=== PATIENT | female | born 1980 | race Caucasian/White ===

== ENCOUNTER 2016-07-30 18:47 | Emergency (ER) | payer OTHER ==
[~2016-07-30 18:47] MED LIST: /AUGM875TA OR; /DULO30CA OR; /ESOM40CA OR; ABIL10TA OR; ABIL5TAB OR; ACET500C OR; ALBU17IN INH; ALBU2TAB INH; ALBU83IN INH; ATOR1TAB18 PO; ATROVENT0.02% INH; CALCCHW12 OR; DOCU10CA PO; EFFE150C OR; FISH300C2 OR; FLAG500T PO; FLEXERIL OR; GABA300C3 PO; GEMF600T PO; GLUC500T OR; GLUC850T OR; IBUP800T23 PO; LEVO175T2 PO; LEVO200T OR; LIPI20TA PO; MELO7.5S PO; METF1000 PO; METH-107 PO; METO10TA2 OR; METO10TA2 PO; NASONEX; NICO21DI4 TD; OMEP20CA3 PO; ONGL10TA3 PO; ONGL1TAB9 PO; PRED20TA PO; PROT1TAB2 PO; SIMV20TA2 OR; SIMV20TA2 PO; TRAM50TA2 PO; TRAZ150T OR; TRAZ50TA4 PO; TRIC145T19 OR; VENL50TA2 PO; VITA-113 SL; VITA100T OR; VYTO10TA5 OR; ZETI10TA OR; ZOCO40TA OR; ZOLO50TA PO; omacor OR
[2016-07-30] MEDS ORDERED: methylPREDNISolone INJ 125 MG/2 ML VIAL (J2930) As Ordered ONE (19:49)
[2016-07-30] MEDS ORDERED: IPRATROPIUM 0.5MG/ALBUTEROL 2.5MG INH SOL UD 3ML (DUONEB)(J7620) As Ordered ONE (19:57)
[2016-07-30 20:22] LABS: BASO % 0.7 % (0.0-1.0); EOS # 0.2 K/mm3 (0.0-0.50); EOS % 3.2 % (0.0-3.0); LARGE UNSTAINED CELL # 0.1 K/mm3 (0.0-0.4); LARGE UNSTAINED CELL % 1.1 % (0.0-4.0); LYMPH # 1.6 K/mm3 (1.5-4.5); LYMPH % 22.3 % (24.0-44.0); MEAN CORPUSCULAR HEMOGLOBIN 31.6 pg (27.0-33.0); MEAN CORPUSCULAR HGB CONC 33.9 g/dl (32.0-36.5); MEAN CORPUSCULAR VOLUME 93.2 fl (80.0-96.0); MONO # 0.5 K/mm3 (0.0-0.8); MONO % 6.9 % (0.0-5.0); NEUTROPHILS # 4.8 K/mm3 (1.8-7.7); NEUTROPHILS % 65.8 % (36.0-66.0); PLATELET COUNT, AUTOMATED 243 k/mm3 (150-450); RED CELL DISTRIBUTION WIDTH 12.8 % (11.5-14.5); WHITE BLOOD COUNT 7.3 K/mm3 (4.0-10.0)
[2016-07-30 20:33] LABS: INR 0.98
[2016-07-30 20:35] LABS: ANION GAP 11 MEQ/L (8-16); BLOOD UREA NITROGEN 7 MG/DL (7-18); CARBON DIOXIDE LEVEL 27 MEQ/L (21-32); CHLORIDE LEVEL 100 MEQ/L (98-107); CREATININE FOR GFR 0.72 MG/DL (0.55-1.02); GLOMERULAR FILTRATION RATE > 60.0 (>60); GLUCOSE, FASTING 150 MG/DL (70-105); POTASSIUM SERUM 4.2 MEQ/L (3.5-5.1); SODIUM LEVEL 138 MEQ/L (136-145)
[2016-07-30] MEDS ORDERED: AZITHROMYCIN 250 MG TAB As Ordered ONE (22:01)
[2016-07-30] MEDS ORDERED: BENZONATATE 100 MG CAP As Ordered ONE (22:01)
--- NOTE | 2016-07-30 22:13 | EDDOCDS ---
Nurse's Notes [facility] Name: Kathy Bradshaw Age: 35 yrs Sex: Female : 1980 Arrival Date: 07/30/2016 Time: 18:47 Bed 8 Private MD: Diagnosis: Acute bronchitis Presentation: 07/30 18:57 Presenting complaint: EMS states: cold for about a week. Patient smokes through stoma. nn1 Patient has had bleeding through stoma when coughing. Patient had stroke back in March, right side weakness. 18:57 Acuity: DESTIN Level 3 nn1 18:57 Method Of Arrival: Ambulance nn1 19:03 Suicide/Homicide risk assessment- the patient denies having any suicidal and/or nn1 homicidal ideations and does not present with any other emotional, behavioral or mental health complaints. Status: Patient is not a service counselor or dependent. Transition of care: patient was not received from another setting of care. 22:11 Adult Sepsis Screening: The patient does not have new or worsening altered mentation. nn1 Patient's respiratory rate is less than 22. Systolic blood pressure is greater than 100. Patient has a qSOFA score of 0- Negative Sepsis Screen. Triage Assessment: 19:12 General: Appears in no apparent distress, Behavior is appropriate for age, cooperative. nn1 Pain: Location: jaw, throat Pain currently is 5 out of 10 on a pain scale. Quality of pain is described as burning, "feels like a sunburn". HIV screening NA for this visit Offered previously. The patient is triaged at the bedside. See Assessment in Nurses Notes section of ED record. Neurological: Level of Consciousness is awake, alert, obeys commands, Oriented to person, place, time. Respiratory: Airway via trache Respiratory effort is even, unlabored, Respiratory pattern is regular, symmetrical, Reports cough that is productive, mixed with blood clots from stoma on Saturday. On Saturday patient reports stoma was pouring blood. Respiratory: Breath sounds with wheezes expiratory in left posterior upper lobe and right posterior upper lobe. Derm: Skin is pink, warm & dry. Stoma does not appear to be infected at this time. Swollen area noted. CARE NURSE RN: 18:57 LMP N/A - Hysterectomy nn1 Historical: - Allergies: Avelox (Hives); SULFA (SULFONAMIDES) (Hives); - Home Meds: 1. albuterol sulfate 0.63 mg/3 mL Inhl nebu as needed. 2. aspirin 81 mg Oral TbEC 1 tab once daily 3. Zoloft 100 mg oral tab 2 tabs once daily 4. Flonase 50 mcg/actuation Nasal spsn 1 spray as needed 5. levothyroxine 175 mcg Oral tab 1 tab once daily 6. Lipitor 80 mg Oral tab 1 tab once daily 7. metformin 1,000 mg Oral tab 1 tab 2 times per day 8. omeprazole 40 mg Oral cpDR 1 cap once daily 9. Onglyza 5 mg oral tab 1 tab once daily 10. Plavix 75 mg Oral tab 1 tab once daily 11. Prednisone Oral 2 times per day 12. Reglan Oral as needed 13. Robaxin 500 mg Oral tab 2 tabs as needed 14. Tricor 145 mg Oral tab 1 tab once daily - PMHx: Diabetes - NIDDM: controlled; GERD; Hypercholesterolemia; Hypothyroidism; Stroke; cancer-larynx; - PSHx: Tubal ligation; Hysterectomy; total larnyectomy; Gall Bladder Removal; - Social history: Smoking status: Patient uses tobacco products, light tobacco smoker. No barriers to communication noted. - Family history: No immediate family members are acutely ill. - : The pt / caregiver states he / she is on anticoagulants: Plavix. Home medication list is obtained from the patient. - Exposure Risk Screening:: None identified. Screenin:10 Screening information is obtained from the patient. Fall risk: No risks identified. nn1 22:10 Assistance ADL's: requires no assistance with activities of daily living. Abuse/DV nn1 Screen: The patient / caregiver reports he/she is: not in a situation that causes fear, pain or injury. Nutritional screening: No deficits noted. Advance Directives: Currently, there is no health care proxy. home support is adequate. Assessment: 19:16 General: See triage assessment . nn1 19:35 General: Patient reporting rectal bleeding at this time as well, states it has been nn1 going on "for a while". . Neurological: Level of Consciousness is awake, alert. Derm: Skin is pink, warm & dry. 20:21 General: Patient has bright red mucus coming from stoma. Provider notified. Patient nn1 received breathing treatments and medication per order. . Respiratory: Airway is patent Respiratory effort is even, unlabored, Respiratory pattern is regular, symmetrical, Sputum is bloody. 22:09 General: Appears in no apparent distress, Behavior is appropriate for age, cooperative. nn1 Pain: Location: throat Pain currently is 5 out of 10 on a pain scale. Neurological: Level of Consciousness is awake, alert. Respiratory: Airway is patent via trache Respiratory effort is even, unlabored, Respiratory pattern is regular, symmetrical, Patient coughing up bloody mucus at this time through stoma. MD aware. Derm: Skin is pink, warm & dry. Vital Signs: 19:06 BP 142 / 93; Pulse 73; Resp 20; Temp 99.1(O); Pulse Ox 91% on R/A; Weight 127.01 kg jm (R); Height 5 ft. 11 in. (180.34 cm) (R); Pain 5/10; 22:08 BP 134 / 75; Pulse 60; Resp 18; Temp 98.3(O); Pulse Ox 91% ; Pain 5/10; nn1 19:06 Body Mass Index 39.05 (127.01 kg, 180.34 cm) [facility] Vitals: 18:57 Log In Time N/A - ambulance arrival. nn1 ED Course: 18:48 Patient visited by Shima Zhang, Bead Preparer. deg 18:48 Patient moved to Waiting deg 18:55 Patient moved to 8 deg 19:00 Triage Initiated nn1 19:07 Pt greeted and oriented to ED. Patient advised of names of staff involved in care, [facility] location of call bagley, wait times and NPO status. Patient has correct armband on for positive identification. Placed in gown. Bed in low position. Call light in reach. Side rails up X2. Pulse ox on. NIBP on. 19:08 Patient visited by Martin Woods PCA. jmv 19:19 Russell Baird DO is Attending Physician. mm11 19:19 Patient visited by Russell Baird DO. mm11 19:37 Patient visited by Russell Baird DO. mm11 20:21 Patient visited by Franky Luna RN. nn1 20:26 [facility] was [place] into [employer] and attached to record. mpb 21:24 Patient visited by Sharmila Rankin. cmb 21:53 [facility] is Referral Physician. mm11 22:10 Inserted saline lock: 20 gauge in left antecubital area. nn1 22:11 The patient / caregiver is instructed regarding the plan of care and ED course. nn1 22:11 No procedures done that require assistance. nn1 Administered Medications: 20:00 Drug: Albuterol-Ipratropium 3 ml [ipratropium-albuterol 0.5 mg-3 mg(2.5 mg base)/3 mL jh6 nebulization soln (3 mL)] Route: Inhalation; 20:10 Drug: Solu-MEDROL 125 mg [Solu-Medrol 500 mg intravenous solution (125 mg)] Route: IVP; nn1 Site: left antecubital; 22:08 Drug: azithromycin 500 mg [azithromycin 250 mg tablet (2 tabs)] Route: PO; nn1 22:08 Drug: Tessalon 200 mg Route: PO; nn1 RT: 20:00 Initial Med Neb Given as ordered Patient was instructed and evaluated on procedure jh6 Patient tolerated procedure well without adverse effect. Respiratory: Airway is patent Respiratory effort is even, unlabored, Respiratory pattern is regular symmetrical, Breath sounds are coarse in left posterior upper lobe, right posterior upper lobe and right posterior middle lobe Breath sounds are diminished in left posterior upper lobe, right posterior upper lobe, left posterior lower lobe, right posterior middle lobe and right posterior lower lobe. Order Results: Lab Order: CBC with Diff; SPEC'M 07/30/16 20:02 Test: WHITE BLOOD COUNT; Value: 7.3; Range: 4.0-10.0; Units: K/mm3; Status: F Test: RED BLOOD COUNT; Value: 5.34; Range: 4.00-5.40; Units: M/mm3; Status: F Test: HEMOGLOBIN; Value: 16.9; Range: 12.0-16.0; Abnormal: Above high normal; Units: g/dl; Status: F Test: HEMATOCRIT; Value: 49.8; Range: 36.0-47.0; Abnormal: Above high normal; Units: %; Status: F Test: MEAN CORPUSCULAR VOLUME; Value: 93.2; Range: 80.0-96.0; Units: fl; Status: F Test: MEAN CORPUSCULAR HEMOGLOBIN; Value: 31.6; Range: 27.0-33.0; Units: pg; Status: F Test: MEAN CORPUSCULAR HGB CONC; Value: 33.9; Range: 32.0-36.5; Units: g/dl; Status: F Test: RED CELL DISTRIBUTION WIDTH; Value: 12.8; Range: 11.5-14.5; Units: %; Status: F Test: PLATELET COUNT, AUTOMATED; Value: 243; Range: 150-450; Units: k/mm3; Status: F Test: NEUTROPHILS %; Value: 65.8; Range: 36.0-66.0; Units: %; Status: F Test: LYMPH %; Value: 22.3; Range: 24.0-44.0; Abnormal: Below low normal; Units: %; Status: F Test: MONO %; Value: 6.9; Range: 0.0-5.0; Abnormal: Above high normal; Units: %; Status: F Test: EOS %; Value: 3.2; Range: 0.0-3.0; Abnormal: Above high normal; Units: %; Status: F Test: BASO %; Value: 0.7; Range: 0.0-1.0; Units: %; Status: F Test: LARGE UNSTAINED CELL %; Value: 1.1; Range: 0.0-4.0; Units: %; Status: F Test: NEUTROPHILS #; Value: 4.8; Range: 1.8-7.7; Units: K/mm3; Status: F Test: LYMPH #; Value: 1.6; Range: 1.5-4.5; Units: K/mm3; Status: F Test: MONO #; Value: 0.5; Range: 0.0-0.8; Units: K/mm3; Status: F Test: EOS #; Value: 0.2; Range: 0.0-0.50; Units: K/mm3; Status: F Test: BASO #; Value: 0.0; Range: 0.0-0.2; Units: K/mm3; Status: F Test: LARGE UNSTAINED CELL #; Value: 0.1; Range: 0.0-0.4; Units: K/mm3; Status: F Lab Order: [facility] [place]; SPEC'M 07/30/16 20:02 Test: GLUCOSE, FASTING; Value: 150; Range: 70-105; Abnormal: Above high normal; Units: MG/DL; Status: F Test: BLOOD UREA NITROGEN; Value: 7; Range: 7-18; Units: MG/DL; Status: F Test: CREATININE FOR GFR; Value: 0.72; Range: 0.55-1.02; Units: MG/DL; Status: F Test: GLOMERULAR FILTRATION RATE; Value: > 60.0; Range: >60; Status: F Test: SODIUM LEVEL; Value: 138; Range: 136-145; Units: MEQ/L; Status: F Test: POTASSIUM SERUM; Value: 4.2; Range: 3.5-5.1; Units: MEQ/L; Status: F Test: CHLORIDE LEVEL; Value: 100; Range: 98-107; Units: MEQ/L; Status: F Test: CARBON DIOXIDE LEVEL; Value: 27; Range: 21-32; Units: MEQ/L; Status: F Test: ANION GAP; Value: 11; Range: 8-16; Units: MEQ/L; Status: F Test: CALCIUM LEVEL; Value: 9.0; Range: 8.5-10.1; Units: MG/DL; Status: F Test Note: ; Units are mL/min/1.73 m2 Chronic Kidney Disease Staging per NKF: Stage I & II GFR >=60 Normal to Mildly Decreased Stage III GFR 30-59 Moderately Decreased Stage IV GFR 15-29 Severely Decreased Stage V GFR <15 Very Little GFR Left ESRD GFR <15 on PLATE FITTER Lab Order: Pt & Aptt; SPEC'M 07/30/16 20:02 Test: PROTHROMBIN TIME; Value: 13.1; Range: 12.3-14.5; Units: SECONDS; Status: F Test: INR; Value: 0.98; Status: F Test: PARTIAL THROMBOPLASTIN TIME; Value: 24.9; Range: 26.6-37.1; Abnormal: Below low normal; Units: SECONDS; Status: F Test Note: ; THERAPUTIC HUMAN INR VALUES INDICATIONS NORMAL RANGES PROPHYLAXIS/TREATMENT OF: VENOUS THROMBOSIS 2.0-3.0 PULMONARY EMBOLISM 2.0-3.0 PREVENTION OF SYSTEMIC EMBOLISM FROM: TISSUE HEART VALVES 2.0-3.0 ACUTE MYOCARDIAL INFARCTION 2.0-3.0 VALVULAR HEART DISEASE 2.0-3.0 ATRIAL FIBRILLATION 2.0-3.0 MECHANICAL VALVES(HIGH RISK) 2.5-3.5 RECURRENT MYOCARDIAL INFARCTION 2.5-3.5 Outcome: 21:53 Discharge ordered by Provider. mm11 22:11 Discharge Assessment: Patient awake, alert and oriented x 3. No cognitive and/or nn1 functional deficits noted. Patient verbalized understanding of disposition instructions. patient administered narcotics - no. The following High Risk Discharge criteria are identified: None. Discharged to home ambulatory. Condition: good Condition: stable. No special radiology studies were completed. Property :Personal belongings accompany Pt. 22:12 Patient left the ED. nn1 Signatures: Shima Zhang, Bead Preparer Unit deg Russell Baird, DO mm11 Gume Merchant jh6 Sharmila Rankin Nikkole,DOROTHY RN nn1 Melquiades Pearl, Reg Reg mpb Martin Woods, AREN ART GILDER jmv MTDD
--- NOTE | 2016-07-30 22:13 | EDDOCDS ---
Physician Documentation [facility] Name: Kathy Bradshaw Age: 35 yrs Sex: Female : 1980 Arrival Date: 07/30/2016 Time: 18:47 Bed 8 Private MD: Disposition: 07/30/16 21:53 Discharged to Home/Self Care. Impression: Acute bronchitis. - Condition is Stable. - Discharge Instructions: Acute Bronchitis. - Prescriptions for Prednisone 20 mg Oral Tablet - take 2 tablet by ORAL route once daily for 5 days; 10 tablet. Zithromax 250 mg Oral Tablet - take 1 tablet by ORAL route once daily start tomorrow; 4 tablet. Mucinex 600 mg - take 1 tablet by ORAL route 2 times per day; 30 tablet. benzonatate 200 mg Oral Capsule - take 1 capsule by ORAL route 3 times per day As needed; 30 capsule. - Medication Reconciliation, Local Pharmacy Hours form. - [facility]; When: 4 - 5 days; Reason: Continuance of care. - Problem is an acute exacerbation. - Symptoms have improved. Historical: - Allergies: Avelox (Hives); SULFA (SULFONAMIDES) (Hives); - Home Meds: 1. albuterol sulfate 0.63 mg/3 mL Inhl nebu as needed. 2. aspirin 81 mg Oral TbEC 1 tab once daily 3. Zoloft 100 mg oral tab 2 tabs once daily 4. Flonase 50 mcg/actuation Nasal spsn 1 spray as needed 5. levothyroxine 175 mcg Oral tab 1 tab once daily 6. Lipitor 80 mg Oral tab 1 tab once daily 7. metformin 1,000 mg Oral tab 1 tab 2 times per day 8. omeprazole 40 mg Oral cpDR 1 cap once daily 9. Onglyza 5 mg oral tab 1 tab once daily 10. Plavix 75 mg Oral tab 1 tab once daily 11. Prednisone Oral 2 times per day 12. Reglan Oral as needed 13. Robaxin 500 mg Oral tab 2 tabs as needed 14. Tricor 145 mg Oral tab 1 tab once daily - PMHx: Diabetes - NIDDM: controlled; GERD; Hypercholesterolemia; Hypothyroidism; Stroke; cancer-larynx; - PSHx: Tubal ligation; Hysterectomy; total larnyectomy; Gall Bladder Removal; - Social history: Smoking status: Patient uses tobacco products, light tobacco smoker. No barriers to communication noted. - Family history: No immediate family members are acutely ill. - : The pt / caregiver states he / she is on anticoagulants: Plavix. Home medication list is obtained from the patient. - Exposure Risk Screening:: None identified. HOSE MENDER: 07/30 18:57 LMP N/A - Hysterectomy nn1 Vital Signs: 19:06 BP 142 / 93; Pulse 73; Resp 20; Temp 99.1(O); Pulse Ox 91% on R/A; Weight 127.01 kg / jmv 280.01 lbs (R); Height 5 ft. 11 in. (180.34 cm) (R); Pain 5/10; 22:08 BP 134 / 75; Pulse 60; Resp 18; Temp 98.3(O); Pulse Ox 91% ; Pain 5/10; nn1 19:06 Body Mass Index 39.05 (127.01 kg, 180.34 cm) jmv MDM: 19:39 IV Saline Lock ordered. mm11 19:39 Solu-MEDROL 125 mg IVP once ordered. mm11 19:39 Albuterol-Ipratropium 3 ml Inhalation once ordered. mm11 19:39 Call Respiratory ordered. mm11 19:40 CBC with Diff Ordered. EDMS 19:40 BMP Ordered. EDMS 19:40 Pt & Aptt Ordered. EDMS 19:40 Chest, 2 View (pa\E\lat) Ordered. EDMS 19:43 -Blood Culture (Adults Only), peripheral from different site, or from device/port/PICC mm11 etc. if present ordered. 19:44 -Blood Culture Ordered. EDMS 20:12 Call Respiratory complete. tmm1 20:14 -Blood Culture (Adults Only), peripheral from different site, or from device/port/PICC tmm1 etc. if present complete. 20:15 BLOOD CULTURES Ordered. EDMS 20:25 Financial registration complete. mpb 20:26 [facility] Payment Agreement was scanned into [employer] and attached to record. mpb 21:35 CBC with Diff Reviewed. mm11 21:35 BMP Reviewed. mm11 21:35 Pt & Aptt Reviewed. mm11 21:55 azithromycin 500 mg PO once ordered. mm11 21:55 Tessalon 200 mg PO once ordered. mm11 Administered Medications: 20:00 Drug: Albuterol-Ipratropium 3 ml [ipratropium-albuterol 0.5 mg-3 mg(2.5 mg base)/3 mL jh6 nebulization soln (3 mL)] Route: Inhalation; 20:10 Drug: Solu-MEDROL 125 mg [Solu-Medrol 500 mg intravenous solution (125 mg)] Route: IVP; nn1 Site: left antecubital; 22:08 Drug: azithromycin 500 mg [azithromycin 250 mg tablet (2 tabs)] Route: PO; nn1 22:08 Drug: Tessalon 200 mg Route: PO; nn1 Signatures: Dispatcher [employer] EDMS Russell Baird DO DO mm11 Natividad Grajeda, POTTERY DECORATOR POTTERY DECORATOR tmm1 Franky Luna,DOROTHY RN nn1 Melquiades Pearl, Faustino Reg mpb Gume Merchant 6 The chart was reviewed and I authenticate all verbal orders and agree with the evaluation and treatment provided.Attachments: 20:26 [facility] [place] Agreement mpb MTDD
--- NOTE | 2016-07-31 07:55 | REP ---
Clinical: Shortness of breath . Comparison: 06/15/2016 . Technique: PA and lateral. Findings: The mediastinum and cardiac silhouette are normal. The lung mercedes are clear and without acute consolidation, effusion, or pneumothorax. The skeletal structures are intact and normal. Impression: 1. No acute cardiopulmonary process. Signed by Micha Maldonado MD 07/31/2016 07:46 A
--- NOTE | 2016-08-01 23:13 | EDDOCDS ---
Physician Documentation [facility] Name: Kathy Bradshaw Age: 35 yrs Sex: Female : 1980 Arrival Date: 07/30/2016 Time: 18:47 Bed 8 Private MD: Disposition: 07/30/16 21:53 Discharged to Home/Self Care. Impression: Acute bronchitis. - Condition is Stable. - Discharge Instructions: Acute Bronchitis. - Prescriptions for Prednisone 20 mg Oral Tablet - take 2 tablet by ORAL route once daily for 5 days; 10 tablet. Zithromax 250 mg Oral Tablet - take 1 tablet by ORAL route once daily start tomorrow; 4 tablet. Mucinex 600 mg - take 1 tablet by ORAL route 2 times per day; 30 tablet. benzonatate 200 mg Oral Capsule - take 1 capsule by ORAL route 3 times per day As needed; 30 capsule. - Medication Reconciliation, Local Pharmacy Hours form. - [facility]; When: 4 - 5 days; Reason: Continuance of care. - Problem is an acute exacerbation. - Symptoms have improved. Historical: - Allergies: Avelox (Hives); SULFA (SULFONAMIDES) (Hives); - Home Meds: 1. albuterol sulfate 0.63 mg/3 mL Inhl nebu as needed. 2. aspirin 81 mg Oral TbEC 1 tab once daily 3. Zoloft 100 mg oral tab 2 tabs once daily 4. Flonase 50 mcg/actuation Nasal spsn 1 spray as needed 5. levothyroxine 175 mcg Oral tab 1 tab once daily 6. Lipitor 80 mg Oral tab 1 tab once daily 7. metformin 1,000 mg Oral tab 1 tab 2 times per day 8. omeprazole 40 mg Oral cpDR 1 cap once daily 9. Onglyza 5 mg oral tab 1 tab once daily 10. Plavix 75 mg Oral tab 1 tab once daily 11. Prednisone Oral 2 times per day 12. Reglan Oral as needed 13. Robaxin 500 mg Oral tab 2 tabs as needed 14. Tricor 145 mg Oral tab 1 tab once daily - PMHx: Diabetes - NIDDM: controlled; GERD; Hypercholesterolemia; Hypothyroidism; Stroke; cancer-larynx; - PSHx: Tubal ligation; Hysterectomy; total larnyectomy; Gall Bladder Removal; - Social history: Smoking status: Patient uses tobacco products, light tobacco smoker. No barriers to communication noted. - Family history: No immediate family members are acutely ill. - : The pt / caregiver states he / she is on anticoagulants: Plavix. Home medication list is obtained from the patient. - Exposure Risk Screening:: None identified. COCOA BUTTER FILTER OPERATOR: 07/30 18:57 LMP N/A - Hysterectomy nn1 Vital Signs: 19:06 BP 142 / 93; Pulse 73; Resp 20; Temp 99.1(O); Pulse Ox 91% on R/A; Weight 127.01 kg / jmv 280.01 lbs (R); Height 5 ft. 11 in. (180.34 cm) (R); Pain 5/10; 22:08 BP 134 / 75; Pulse 60; Resp 18; Temp 98.3(O); Pulse Ox 91% ; Pain 5/10; nn1 19:06 Body Mass Index 39.05 (127.01 kg, 180.34 cm) jmv MDM: 19:39 IV Saline Lock ordered. mm11 19:39 Solu-MEDROL 125 mg IVP once ordered. mm11 19:39 Albuterol-Ipratropium 3 ml Inhalation once ordered. mm11 19:39 Call Respiratory ordered. mm11 19:40 CBC with Diff Ordered. EDMS 19:40 BMP Ordered. EDMS 19:40 Pt & Aptt Ordered. EDMS 19:40 Chest, 2 View (pa\E\lat) Ordered. EDMS 19:43 -Blood Culture (Adults Only), peripheral from different site, or from device/port/PICC mm11 etc. if present ordered. 19:44 -Blood Culture Ordered. EDMS 20:12 Call Respiratory complete. tmm1 20:14 -Blood Culture (Adults Only), peripheral from different site, or from device/port/PICC tmm1 etc. if present complete. 20:15 BLOOD CULTURES Ordered. EDMS 20:25 Financial registration complete. mpb 20:26 [facility] [place] Agreement was scanned into [employer] and attached to record. mpb 21:35 CBC with Diff Reviewed. mm11 21:35 BMP Reviewed. mm11 21:35 Pt & Aptt Reviewed. mm11 21:55 azithromycin 500 mg PO once ordered. mm11 21:55 Tessalon 200 mg PO once ordered. mm11 07/31 03:47 T-Sheet-- Draft Copy was scanned into [employer] and attached to record. hs2 Administered Medications: 07/30 20:00 Drug: Albuterol-Ipratropium 3 ml [ipratropium-albuterol 0.5 mg-3 mg(2.5 mg base)/3 mL jh6 nebulization soln (3 mL)] Route: Inhalation; 20:10 Drug: Solu-MEDROL 125 mg [Solu-Medrol 500 mg intravenous solution (125 mg)] Route: IVP; nn1 Site: left antecubital; 22:08 Drug: azithromycin 500 mg [azithromycin 250 mg tablet (2 tabs)] Route: PO; nn1 22:08 Drug: Tessalon 200 mg Route: PO; nn1 Signatures: Dispatcher [employer] EDRussell Portillo, DO mm11 Natividad Grajeda, COMPUTED TOMOGRAPHY SCANNER OPERATOR COMPUTED TOMOGRAPHY SCANNER OPERATOR tmm1 Franky Luna,RN RN nn1 Melquiades Pearl, Reg Reg mpb Ronel De La Paz, Reg Reg hs2 Gume Merchant 6 The chart was reviewed and I authenticate all verbal orders and agree with the evaluation and treatment provided.Attachments: 20:26 [facility] Payment Agreement mpb 07/31 03:47 T-Sheet-- Draft Copy hs2 Chart Complete MTDD
--- NOTE | 2016-08-01 23:13 | EDDOCDS ---
Nurse's Notes [facility] Name: Kathy Bradshaw Age: 35 yrs Sex: Female : 1980 Arrival Date: 07/30/2016 Time: 18:47 Bed 8 Private MD: Diagnosis: Acute bronchitis Presentation: 07/30 18:57 Presenting complaint: EMS states: cold for about a week. Patient smokes through stoma. nn1 Patient has had bleeding through stoma when coughing. Patient had stroke back in March, right side weakness. 18:57 Acuity: DESTIN Level 3 nn1 18:57 Method Of Arrival: Ambulance nn1 19:03 Suicide/Homicide risk assessment- the patient denies having any suicidal and/or nn1 homicidal ideations and does not present with any other emotional, behavioral or mental health complaints. Status: Patient is not a customer service correspondence clerk or dependent. Transition of care: patient was not received from another setting of care. 22:11 Adult Sepsis Screening: The patient does not have new or worsening altered mentation. nn1 Patient's respiratory rate is less than 22. Systolic blood pressure is greater than 100. Patient has a qSOFA score of 0- Negative Sepsis Screen. Triage Assessment: 19:12 General: Appears in no apparent distress, Behavior is appropriate for age, cooperative. nn1 Pain: Location: jaw, throat Pain currently is 5 out of 10 on a pain scale. Quality of pain is described as burning, "feels like a sunburn". HIV screening NA for this visit Offered previously. The patient is triaged at the bedside. See Assessment in Nurses Notes section of ED record. Neurological: Level of Consciousness is awake, alert, obeys commands, Oriented to person, place, time. Respiratory: Airway via trache Respiratory effort is even, unlabored, Respiratory pattern is regular, symmetrical, Reports cough that is productive, mixed with blood clots from stoma on Saturday. On Saturday patient reports stoma was pouring blood. Respiratory: Breath sounds with wheezes expiratory in left posterior upper lobe and right posterior upper lobe. Derm: Skin is pink, warm & dry. Stoma does not appear to be infected at this time. Swollen area noted. 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 albuterol sulfate 0.63 mg/3 mL Inhl nebu as needed. 2. aspirin 81 mg Oral TbEC 1 tab once daily 3. Zoloft 100 mg oral tab 2 tabs once daily 4. Flonase 50 mcg/actuation Nasal spsn 1 spray as needed 5. levothyroxine 175 mcg Oral tab 1 tab once daily 6. Lipitor 80 mg Oral tab 1 tab once daily 7. metformin 1,000 mg Oral tab 1 tab 2 times per day 8. omeprazole 40 mg Oral cpDR 1 cap once daily 9. Onglyza 5 mg oral tab 1 tab once daily 10. Plavix 75 mg Oral tab 1 tab once daily 11. Prednisone Oral 2 times per day 12. Reglan Oral as needed 13. Robaxin 500 mg Oral tab 2 tabs as needed 14. Tricor 145 mg Oral tab 1 tab once daily - PMHx: Diabetes - NIDDM: controlled; GERD; Hypercholesterolemia; Hypothyroidism; Stroke; cancer-larynx; - PSHx: Tubal ligation; Hysterectomy; total larnyectomy; Gall Bladder Removal; - Social history: Smoking status: Patient uses tobacco products, light tobacco smoker. No barriers to communication noted. - Family history: No immediate family members are acutely ill. - : The pt / caregiver states he / she is on anticoagulants: Plavix. Home medication list is obtained from the patient. - Exposure Risk Screening:: None identified. Screenin:10 Screening information is obtained from the patient. Fall risk: No risks identified. nn1 22:10 Assistance ADL's: requires no assistance with activities of daily living. Abuse/DV nn1 Screen: The patient / caregiver reports he/she is: not in a situation that causes fear, pain or injury. Nutritional screening: No deficits noted. Advance Directives: Currently, there is no health care proxy. home support is adequate. Assessment: 19:16 General: See triage assessment . nn1 19:35 General: Patient reporting rectal bleeding at this time as well, states it has been nn1 going on "for a while". . Neurological: Level of Consciousness is awake, alert. Derm: Skin is pink, warm & dry. 20:21 General: Patient has bright red mucus coming from stoma. Provider notified. Patient nn1 received breathing treatments and medication per order. . Respiratory: Airway is patent Respiratory effort is even, unlabored, Respiratory pattern is regular, symmetrical, Sputum is bloody. 22:09 General: Appears in no apparent distress, Behavior is appropriate for age, cooperative. nn1 Pain: Location: throat Pain currently is 5 out of 10 on a pain scale. Neurological: Level of Consciousness is awake, alert. Respiratory: Airway is patent via trache Respiratory effort is even, unlabored, Respiratory pattern is regular, symmetrical, Patient coughing up bloody mucus at this time through stoma. MD aware. Derm: Skin is pink, warm & dry. Vital Signs: 19:06 BP 142 / 93; Pulse 73; Resp 20; Temp 99.1(O); Pulse Ox 91% on R/A; Weight 127.01 kg jm (R); Height 5 ft. 11 in. (180.34 cm) (R); Pain 5/10; 22:08 BP 134 / 75; Pulse 60; Resp 18; Temp 98.3(O); Pulse Ox 91% ; Pain 5/10; nn1 19:06 Body Mass Index 39.05 (127.01 kg, 180.34 cm) [facility] Vitals: 18:57 Log In Time N/A - ambulance arrival. nn1 ED Course: 18:48 Patient visited by Shima Zhang, Remelt Furnace Expediter. deg 18:48 Patient moved to Waiting deg 18:55 Patient moved to 8 deg 19:00 Triage Initiated nn1 19:07 Pt greeted and oriented to ED. Patient advised of names of staff involved in care, [facility] location of call [place], wait times and NPO status. Patient has correct armband on for positive identification. Placed in gown. Bed in low position. Call light in reach. Side rails up X2. Pulse ox on. NIBP on. 19:08 Patient visited by Martin Woods PCA. jmv 19:19 Russell Baird DO is Attending Physician. mm11 19:19 Patient visited by Russell Baird DO. mm11 19:37 Patient visited by Russell Baird DO. mm11 20:21 Patient visited by Franky Luna RN. nn1 20:26 [facility] [place] Agreement was scanned into [employer] and attached to record. mpb 21:24 Patient visited by Sharmila Rankin. cmb 21:53 [facility] is Referral Physician. mm11 22:10 Inserted saline lock: 20 gauge in left antecubital area. nn1 22:11 The patient / caregiver is instructed regarding the plan of care and ED course. nn1 22:11 No procedures done that require assistance. nn1 07/31 03:47 T-Sheet-- Draft Copy was scanned into [employer] and attached to record. hs2 08:07 Chest, 2 View (pa\\E\\lat) Returned. EDMS Administered Medications: 07/30 20:00 Drug: Albuterol-Ipratropium 3 ml [ipratropium-albuterol 0.5 mg-3 mg(2.5 mg base)/3 mL jh6 nebulization soln (3 mL)] Route: Inhalation; 20:10 Drug: Solu-MEDROL 125 mg [Solu-Medrol 500 mg intravenous solution (125 mg)] Route: IVP; nn1 Site: left antecubital; 22:08 Drug: azithromycin 500 mg [azithromycin 250 mg tablet (2 tabs)] Route: PO; nn1 22:08 Drug: Tessalon 200 mg Route: PO; nn1 RT: 20:00 Initial Med Neb Given as ordered Patient was instructed and evaluated on procedure jh6 Patient tolerated procedure well without adverse effect. Respiratory: Airway is patent Respiratory effort is even, unlabored, Respiratory pattern is regular symmetrical, Breath sounds are coarse in left posterior upper lobe, right posterior upper lobe and right posterior middle lobe Breath sounds are diminished in left posterior upper lobe, right posterior upper lobe, left posterior lower lobe, right posterior middle lobe and right posterior lower lobe. Order Results: Lab Order: CBC with Diff; SPEC'M 07/30/16 20:02 Test: WHITE BLOOD COUNT; Value: 7.3; Range: 4.0-10.0; Units: K/mm3; Status: F Test: RED BLOOD COUNT; Value: 5.34; Range: 4.00-5.40; Units: M/mm3; Status: F Test: HEMOGLOBIN; Value: 16.9; Range: 12.0-16.0; Abnormal: Above high normal; Units: g/dl; Status: F Test: HEMATOCRIT; Value: 49.8; Range: 36.0-47.0; Abnormal: Above high normal; Units: %; Status: F Test: MEAN CORPUSCULAR VOLUME; Value: 93.2; Range: 80.0-96.0; Units: fl; Status: F Test: MEAN CORPUSCULAR HEMOGLOBIN; Value: 31.6; Range: 27.0-33.0; Units: pg; Status: F Test: MEAN CORPUSCULAR HGB CONC; Value: 33.9; Range: 32.0-36.5; Units: g/dl; Status: F Test: RED CELL DISTRIBUTION WIDTH; Value: 12.8; Range: 11.5-14.5; Units: %; Status: F Test: PLATELET COUNT, AUTOMATED; Value: 243; Range: 150-450; Units: k/mm3; Status: F Test: NEUTROPHILS %; Value: 65.8; Range: 36.0-66.0; Units: %; Status: F Test: LYMPH %; Value: 22.3; Range: 24.0-44.0; Abnormal: Below low normal; Units: %; Status: F Test: MONO %; Value: 6.9; Range: 0.0-5.0; Abnormal: Above high normal; Units: %; Status: F Test: EOS %; Value: 3.2; Range: 0.0-3.0; Abnormal: Above high normal; Units: %; Status: F Test: BASO %; Value: 0.7; Range: 0.0-1.0; Units: %; Status: F Test: LARGE UNSTAINED CELL %; Value: 1.1; Range: 0.0-4.0; Units: %; Status: F Test: NEUTROPHILS #; Value: 4.8; Range: 1.8-7.7; Units: K/mm3; Status: F Test: LYMPH #; Value: 1.6; Range: 1.5-4.5; Units: K/mm3; Status: F Test: MONO #; Value: 0.5; Range: 0.0-0.8; Units: K/mm3; Status: F Test: EOS #; Value: 0.2; Range: 0.0-0.50; Units: K/mm3; Status: F Test: BASO #; Value: 0.0; Range: 0.0-0.2; Units: K/mm3; Status: F Test: LARGE UNSTAINED CELL #; Value: 0.1; Range: 0.0-0.4; Units: K/mm3; Status: F Lab Order: BMP; SPEC'M 07/30/16 20:02 Test: GLUCOSE, FASTING; Value: 150; Range: 70-105; Abnormal: Above high normal; Units: MG/DL; Status: F Test: BLOOD UREA NITROGEN; Value: 7; Range: 7-18; Units: MG/DL; Status: F Test: CREATININE FOR GFR; Value: 0.72; Range: 0.55-1.02; Units: MG/DL; Status: F Test: GLOMERULAR FILTRATION RATE; Value: > 60.0; Range: >60; Status: F Test: SODIUM LEVEL; Value: 138; Range: 136-145; Units: MEQ/L; Status: F Test: POTASSIUM SERUM; Value: 4.2; Range: 3.5-5.1; Units: MEQ/L; Status: F Test: CHLORIDE LEVEL; Value: 100; Range: 98-107; Units: MEQ/L; Status: F Test: CARBON DIOXIDE LEVEL; Value: 27; Range: 21-32; Units: MEQ/L; Status: F Test: ANION GAP; Value: 11; Range: 8-16; Units: MEQ/L; Status: F Test: CALCIUM LEVEL; Value: 9.0; Range: 8.5-10.1; Units: MG/DL; Status: F Test Note: ; Units are mL/min/1.73 m2 Chronic Kidney Disease Staging per NKF: Stage I & II GFR >=60 Normal to Mildly Decreased Stage III GFR 30-59 Moderately Decreased Stage IV GFR 15-29 Severely Decreased Stage V GFR <15 Very Little GFR Left ESRD GFR <15 on CARDIAC REHABILITATION PROGRAM DIRECTOR Lab Order: Pt & Aptt; SPEC'M 07/30/16 20:02 Test: PROTHROMBIN TIME; Value: 13.1; Range: 12.3-14.5; Units: SECONDS; Status: F Test: INR; Value: 0.98; Status: F Test: PARTIAL THROMBOPLASTIN TIME; Value: 24.9; Range: 26.6-37.1; Abnormal: Below low normal; Units: SECONDS; Status: F Test Note: ; THERAPUTIC HUMAN INR VALUES INDICATIONS NORMAL RANGES PROPHYLAXIS/TREATMENT OF: VENOUS THROMBOSIS 2.0-3.0 PULMONARY EMBOLISM 2.0-3.0 PREVENTION OF SYSTEMIC EMBOLISM FROM: TISSUE HEART VALVES 2.0-3.0 ACUTE MYOCARDIAL INFARCTION 2.0-3.0 VALVULAR HEART DISEASE 2.0-3.0 ATRIAL FIBRILLATION 2.0-3.0 MECHANICAL VALVES(HIGH RISK) 2.5-3.5 RECURRENT MYOCARDIAL INFARCTION 2.5-3.5 Lab Order: -Blood Culture; SPEC'M 07/30/16 20:02 Test: BLOOD CULTURE; Value: No growth after 24 hours . All specimens observed; Status: F Test: BLOOD CULTURE; Value: for 5 days. Results final at that time.; Status: F Test: BLOOD CULTURE; Value: No Growth after 48 hours. All Specimens observed; Status: F Test: BLOOD CULTURE; Value: for 7 days. Results final at that time.; Status: F Lab Order: BLOOD CULTURES; SPEC'M 07/30/16 20:11 Test: BLOOD CULTURE; Value: No growth after 24 hours . All specimens observed; Status: F Test: BLOOD CULTURE; Value: for 5 days. Results final at that time.; Status: F Test: BLOOD CULTURE; Value: No Growth after 48 hours. All Specimens observed; Status: F Test: BLOOD CULTURE; Value: for 7 days. Results final at that time.; Status: F Radiology Order: Chest, 2 View (pa\\E\\lat) Test: Chest, 2 View (pa\\E\\lat) REASON FOR EXAMINATION: Shortness of Breath; Clinical: Shortness of breath .; ; Comparison: 06/15/2016 .; ; Technique: PA and lateral.; ; Findings:; The mediastinum and cardiac silhouette are normal. The lung mercedes are clear and; without acute consolidation, effusion, or pneumothorax. The skeletal structures; are intact and normal.; ; Impression:; 1. No acute cardiopulmonary process.; ; ; Signed by; Micha Maldonado MD 07/31/2016 07:46 A; Outcome: 21:53 Discharge ordered by Provider. mm11 22:11 Discharge Assessment: Patient awake, alert and oriented x 3. No cognitive and/or nn1 functional deficits noted. Patient verbalized understanding of disposition instructions. patient administered narcotics - no. The following High Risk Discharge criteria are identified: None. Discharged to home ambulatory. Condition: good Condition: stable. No special radiology studies were completed. Property :Personal belongings accompany Pt. 22:12 Patient left the ED. nn1 Signatures: Dispatcher [employer] EDMS Shima Zhang, Remelt Furnace Expediter Unit deg Russell Baird, DO mm11 Gume Merchant jh6 Sharmila Rankin cmb Franky Luna,ODROTHY RN nn1 Melquiades Pearl, Reg Reg mpb Ronel De La Paz, Reg Reg hs2 Martin Woods, LOG YARD DERRICK OPERATOR LOG YARD DERRICK OPERATOR jmv Chart Complete MTDD
--- NOTE | 2016-08-01 23:13 | EDDOCDS ---
Physician Documentation [facility] Name: Kathy Bradshaw Age: 35 yrs Sex: Female : 1980 Arrival Date: 07/30/2016 Time: 18:47 Bed 8 Private MD: Disposition: 07/30/16 21:53 Discharged to Home/Self Care. Impression: Acute bronchitis. - Condition is Stable. - Discharge Instructions: Acute Bronchitis. - Prescriptions for Prednisone 20 mg Oral Tablet - take 2 tablet by ORAL route once daily for 5 days; 10 tablet. Zithromax 250 mg Oral Tablet - take 1 tablet by ORAL route once daily start tomorrow; 4 tablet. Mucinex 600 mg - take 1 tablet by ORAL route 2 times per day; 30 tablet. benzonatate 200 mg Oral Capsule - take 1 capsule by ORAL route 3 times per day As needed; 30 capsule. - Medication Reconciliation, Local Pharmacy Hours form. - [facility] up: [facility]; When: 4 - 5 days; Reason: Continuance of care. - Problem is an acute exacerbation. - Symptoms have improved. Historical: - Allergies: Avelox (Hives); SULFA (SULFONAMIDES) (Hives); - Home Meds: 1. albuterol sulfate 0.63 mg/3 mL Inhl nebu as needed. 2. aspirin 81 mg Oral TbEC 1 tab once daily 3. Zoloft 100 mg oral tab 2 tabs once daily 4. Flonase 50 mcg/actuation Nasal spsn 1 spray as needed 5. levothyroxine 175 mcg Oral tab 1 tab once daily 6. Lipitor 80 mg Oral tab 1 tab once daily 7. metformin 1,000 mg Oral tab 1 tab 2 times per day 8. omeprazole 40 mg Oral cpDR 1 cap once daily 9. Onglyza 5 mg oral tab 1 tab once daily 10. Plavix 75 mg Oral tab 1 tab once daily 11. Prednisone Oral 2 times per day 12. Reglan Oral as needed 13. Robaxin 500 mg Oral tab 2 tabs as needed 14. Tricor 145 mg Oral tab 1 tab once daily - PMHx: Diabetes - NIDDM: controlled; GERD; Hypercholesterolemia; Hypothyroidism; Stroke; cancer-larynx; - PSHx: Tubal ligation; Hysterectomy; total larnyectomy; Gall Bladder Removal; - Social history: Smoking status: Patient uses tobacco products, light tobacco smoker. No barriers to communication noted. - Family history: No immediate family members are acutely ill. - : The pt / caregiver states he / she is on anticoagulants: Plavix. Home medication list is obtained from the patient. - Exposure Risk Screening:: None identified. 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 11 in. (180.34 cm) (R); Pain 5/10; 22:08 BP 134 / 75; Pulse 60; Resp 18; Temp 98.3(O); Pulse Ox 91% ; Pain 5/10; nn1 19:06 Body Mass Index 39.05 (127.01 kg, 180.34 cm) jmv MDM: 19:39 IV Saline Lock ordered. mm11 19:39 Solu-MEDROL 125 mg IVP once ordered. mm11 19:39 Albuterol-Ipratropium 3 ml Inhalation once ordered. mm11 19:39 Call Respiratory ordered. mm11 19:40 CBC with Diff Ordered. EDMS 19:40 BMP Ordered. EDMS 19:40 Pt & Aptt Ordered. EDMS 19:40 Chest, 2 View (pa\E\lat) Ordered. EDMS 19:43 -Blood Culture (Adults Only), peripheral from different site, or from device/port/PICC mm11 etc. if present ordered. 19:44 -Blood Culture Ordered. EDMS 20:12 Call Respiratory complete. tmm1 20:14 -Blood Culture (Adults Only), peripheral from different site, or from device/port/PICC tmm1 etc. if present complete. 20:15 BLOOD CULTURES Ordered. EDMS 20:25 Financial registration complete. mpb 20:26 [facility] Payment Agreement was scanned into [employer] and attached to record. mpb 21:35 CBC with Diff Reviewed. mm11 21:35 BMP Reviewed. mm11 21:35 Pt & Aptt Reviewed. mm11 21:55 azithromycin 500 mg PO once ordered. mm11 21:55 Tessalon 200 mg PO once ordered. mm11 07/31 03:47 T-Sheet-- Draft Copy was scanned into [employer] and attached to record. hs2 Administered Medications: 07/30 20:00 Drug: Albuterol-Ipratropium 3 ml [ipratropium-albuterol 0.5 mg-3 mg(2.5 mg base)/3 mL jh6 nebulization soln (3 mL)] Route: Inhalation; 20:10 Drug: Solu-MEDROL 125 mg [Solu-Medrol 500 mg intravenous solution (125 mg)] Route: IVP; nn1 Site: left antecubital; 22:08 Drug: azithromycin 500 mg [azithromycin 250 mg tablet (2 tabs)] Route: PO; nn1 22:08 Drug: Tessalon 200 mg Route: PO; nn1 Signatures: Dispatcher [employer] EDRussell Portillo, DO mm11 Natividad Grajeda, CAUSTIC LOADER CAUSTIC LOADER tmm1 Franky Luna,RN RN nn1 Melquiades Pearl, Reg Reg mpb Ronel De La Paz, Reg Reg hs2 Gume Merchant 6 The chart was reviewed and I authenticate all verbal orders and agree with the evaluation and treatment provided.Attachments: 20:26 [facility] Payment Agreement mpb 07/31 03:47 T-Sheet-- Draft Copy hs2 Chart Complete MTDD
== END 2016-07-30 22:12 | disposition home or self-care (01) ==
LOC: M ED 18:47
DX: J20.9 Acute bronchitis, unspecified (principal); E11.9 Type 2 diabetes mellitus without complications; K21.9 Gastro-esophageal reflux disease without esophagitis; E78.00 Pure hypercholesterolemia, unspecified; E03.9 Hypothyroidism, unspecified; Z86.73 Personal history of transient ischemic attack (TIA), and cerebral infarction without residual deficits; Z85.21 Personal history of malignant neoplasm of larynx; Z90.02 Acquired absence of larynx; F17.200 Nicotine dependence, unspecified, uncomplicated; Z79.82 Long term (current) use of aspirin; Z79.02 Long term (current) use of antithrombotics/antiplatelets; Z79.899 Other long term (current) drug therapy; Z88.1 Allergy status to other antibiotic agents; Z88.2 Allergy status to sulfonamides; Z93.8 Other artificial opening status
CPT/HCPCS: 71020; 80048; 85025; 85610; 85730; 87040; 94640; 96374; 99284; J2930

== ENCOUNTER 2016-09-03 11:17 | Emergency (ER) | payer OTHER ==
--- NOTE | 2016-09-03 14:43 | EDDOCDS ---
Nurse's Notes [facility] Name: Kathy Bradshaw Age: 35 yrs Sex: Female : 1980 Arrival Date: 09/03/2016 Time: 11:17 Bed PR Private MD: AL CASTANON Diagnosis: Contusion of left shoulder;Sprain of ribs-contusion Presentation: 09/03 11:21 Presenting complaint: Patient states: Pt presents with c/o pain left shoulder upper arm dls also left rib area fell last week pain radiating into left side of her chest pt is on blood thinners bryising noted to upper arm and left rib area. Aspirin was not taken prior to arrival. Adult Sepsis Screening: The patient does not have new or worsening altered mentation. Patient's respiratory rate is less than 22. Systolic blood pressure is greater than 100. Patient has a qSOFA score of 0- Negative Sepsis Screen. Suicide/Homicide risk assessment- the patient denies having any suicidal and/or homicidal ideations and does not present with any other emotional, behavioral or mental health complaints. Status: Patient is not a hotel guest service agent or dependent. Transition of care: patient was not received from another setting of care. 11:21 Acuity: DESTIN Level 3 dls 11:21 Method Of Arrival: Walkin/Carried/Asstd dls Triage Assessment: 11:26 General: Appears in no apparent distress, well developed, Behavior is cooperative. dls Pain: Pain currently is 7 out of 10 on a pain scale. HIV screening NA for this visit Offered previously. 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 albuterol sulfate 0.63 mg/3 mL Inhl nebu as needed. 2. aspirin 81 mg Oral TbEC 1 tab once daily 3. Flonase 50 mcg/actuation Nasal spsn 1 spray as needed 4. levothyroxine 175 mcg Oral tab 1 tab once daily 5. Lipitor 80 mg Oral tab 1 tab once daily 6. metformin 1,000 mg Oral tab 1 tab 2 times per day 7. omeprazole 40 mg Oral cpDR 1 cap once daily 8. Onglyza 5 mg oral tab 1 tab once daily 9. Plavix 75 mg Oral tab 1 tab once daily 10. Prednisone Oral 2 times per day 11. Reglan Oral as needed 12. Robaxin 500 mg Oral tab 2 tabs as needed 13. Tricor 145 mg Oral tab 1 tab once daily 14. Zoloft 100 mg Oral tab 2 tabs once daily - PMHx: cancer-larynx; Diabetes - NIDDM: controlled; GERD; Hypercholesterolemia; Hypothyroidism; Stroke; - PSHx: Hysterectomy; Cholecystectomy; Tubal ligation; Tracheostomy; - Social history: Smoking status: Patient/guardian denies using No barriers to communication noted. - Family history: Not pertinent. - : The pt / caregiver states he / she is on anticoagulants: Plavix. Home medication list is obtained from the patient, [employer] import data. - Exposure Risk Screening:: None identified. Screenin:19 Infection Control. ct3 14:38 Screening information is obtained from the patient. Fall risk: No risks identified. kcs Assistance ADL's: requires no assistance with activities of daily living. Abuse/DV Screen: The patient / caregiver reports he/she is: not in a situation that causes fear, pain or injury. Nutritional screening: No deficits noted. Advance Directives: Currently, there is no health care proxy. home support is adequate. Assessment: 14:38 Reassessment: Patient moving all extremities.. General: Appears comfortable, well kcs developed, well nourished, well groomed, Behavior is cooperative, pleasant. Pain: Location: left shoulder. Neurological: Level of Consciousness is awake, alert. Respiratory: Airway is patent Respiratory effort is even, unlabored, Respiratory pattern is regular, symmetrical, stoma patent. Derm: Skin is intact, is healthy with good turgor, Skin is dry, Skin is normal. Vital Signs: 11:19 BP 113 / 85; Pulse 71; Resp 18; Temp 97.9(O); Pulse Ox 94% on R/A; Weight 90.72 kg (R); ct3 Height 5 ft. 11 in. (180.34 cm) (R); Pain 7/10; 14:28 BP 118 / 69; Pulse 68; Resp 18; Temp 97.5(O); Pulse Ox 98% on R/A; Pain 7/10; ct3 11:19 Body Mass Index 27.89 (90.72 kg, 180.34 cm) ct3 Vitals: 11:19 Log In Time: September 03, 2016 at 11:17. ct3 ED Course: 11:19 Patient visited by Aleida Mann PCA. ct3 11:19 [place] CASTANON is Private Physician. ct3 11:19 Patient moved to Waiting ct3 11:21 Patient moved to Pre RCE ct3 11:23 Triage Initiated dls 12:44 Patient moved to Triage 2 kcs 13:11 Patient visited by Emely Garay RN. mk4 13:11 Mahad Rinaldi PA-C is PHCP. ar2 13:11 Carmen Yanez MD is Attending Physician. ar2 13:21 Patient visited by Mahad Rinaldi PA-C. ar2 13:27 Patient moved to TR1 dls 14:05 Patient visited by Aleida Mann PCA. ct3 14:24 [facility] Payment Agreement was scanned into [employer] and attached to record. lg 14:25 Patient moved to PR1 / 25 kcs 14:28 Patient visited by Aleida Mann PCA. ct3 14:32 LA CASTANON is Referral Physician. ar2 14:38 The patient / caregiver is instructed regarding the plan of care and ED course. kcs 14:38 No IV's were initiated during this patient's visit. No procedures done that require kcs assistance. Order Results: There are currently no results for this order. Outcome: 14:33 Discharge ordered by Provider. ar2 14:38 Discharge Assessment: Patient awake, alert and oriented x 3. No cognitive and/or kcs functional deficits noted. Patient verbalized understanding of disposition instructions. Patient awake and alert. patient administered narcotics - no. The following High Risk Discharge criteria are identified: None. Discharged to home ambulatory, with significant other. Condition: stable. Discharge instructions given to patient, Instructed on discharge instructions, follow up and referral plans. Demonstrated understanding of instructions, Pt was receptive of discharge instructions/ teaching. No special radiology studies were completed. Property sent home with patient. 14:42 Patient left the ED. kcs Signatures: Marissa Mcgovern RN RN kcs Scott, Debra, RN RN dls Cecil Goyal, Reg Reg lg Mahad Rinaldi PA-C PA-C ar2 Aleida Mann PCA LICENSE DISTRIBUTOR ct3 Jarrod, Emely, RN RN mk4 MTDD
--- NOTE | 2016-09-03 14:43 | EDDOCDS ---
Physician Documentation [facility] Name: Kathy Bradshaw Age: 35 yrs Sex: Female : 1980 Arrival Date: 09/03/2016 Time: 11:17 Bed PR Private MD: LA CASTANON Disposition: 09/03/16 14:33 Discharged to Home/Self Care. Impression: Contusion of left shoulder, Sprain of ribs - contusion. - Condition is Stable. - Discharge Instructions: Contusion. - Medication Reconciliation, Local Pharmacy Hours form. - Follow up: LA CASTANON; When: Call to arrange an appointment; Reason: Recheck today's complaints, Continuance of care. - Problem is new. - Symptoms are unchanged. Historical: - Allergies: Avelox (Hives); SULFA (SULFONAMIDES) (Hives); - Home Meds: 1. albuterol sulfate 0.63 mg/3 mL Inhl nebu as needed. 2. aspirin 81 mg Oral TbEC 1 tab once daily 3. Flonase 50 mcg/actuation Nasal spsn 1 spray as needed 4. levothyroxine 175 mcg Oral tab 1 tab once daily 5. Lipitor 80 mg Oral tab 1 tab once daily 6. metformin 1,000 mg Oral tab 1 tab 2 times per day 7. omeprazole 40 mg Oral cpDR 1 cap once daily 8. Onglyza 5 mg oral tab 1 tab once daily 9. Plavix 75 mg Oral tab 1 tab once daily 10. Prednisone Oral 2 times per day 11. Reglan Oral as needed 12. Robaxin 500 mg Oral tab 2 tabs as needed 13. Tricor 145 mg Oral tab 1 tab once daily 14. Zoloft 100 mg Oral tab 2 tabs once daily - PMHx: cancer-larynx; Diabetes - NIDDM: controlled; GERD; Hypercholesterolemia; Hypothyroidism; Stroke; - PSHx: Hysterectomy; Cholecystectomy; Tubal ligation; Tracheostomy; - Social history: Smoking status: Patient/guardian denies using No barriers to communication noted. - Family history: Not pertinent. - : The pt / caregiver states he / she is on anticoagulants: Plavix. Home medication list is obtained from the patient, [place] import data. - Exposure Risk Screening:: None identified. 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 11 in. (180.34 cm) (R); Pain 7/10; 14:28 BP 118 / 69; Pulse 68; Resp 18; Temp 97.5(O); Pulse Ox 98% on R/A; Pain 7/10; ct3 11:19 Body Mass Index 27.89 (90.72 kg, 180.34 cm) ct3 MDM: 13:27 Shoulder, Complete Ordered. EDMS 13:28 Rib Unilat W/PA Chest Only Ordered. EDMS 13:51 Financial registration complete. lg 14:24 [facility] [place] Payment Agreement was scanned into [employer] and attached to record. lg Signatures: Dispatcher MedHost EDMS Marissa Mcgovern RN RN kcs Leonarda Gamez RN RN dls Cecil Goyal, Reg Reg lg Mahad Rinaldi PA-C PA-C ar2 The chart was reviewed and I authenticate all verbal orders and agree with the evaluation and treatment provided.Attachments: 14:24 [facility] [place] Payment Agreement lg MTDD
--- NOTE | 2016-09-03 14:57 | REP ---
LEFT SHOULDER, THREE VIEWS: There is no evidence of an acute fracture, dislocation or intrinsic bone disease. IMPRESSION: No fracture or dislocation. Signed by Wilbur Juárez MD 09/04/2016 09:24 A
--- NOTE | 2016-09-03 14:59 | REP ---
LEFT RIB SERIES: Four views of left ribs are performed. There is no evidence of fracture or bone lesion. A PA view of the chest demonstrates no infiltrate, pneumothorax, or pleural effusion. The cardiomediastinal silhouette is unremarkable. IMPRESSION: Negative left rib series. Signed by Wilbur Juárez MD 09/04/2016 09:24 A
--- NOTE | 2016-09-05 15:43 | EDDOCDS ---
Nurse's Notes [facility] Name: Kathy Bradshaw Age: 35 yrs Sex: Female : 1980 Arrival Date: 09/03/2016 Time: 11:17 Bed PR Private MD: LA CASTANON Diagnosis: Contusion of left shoulder;Sprain of ribs-contusion Presentation: 09/03 11:21 Presenting complaint: Patient states: Pt presents with c/o pain left shoulder upper arm dls also left rib area fell last week pain radiating into left side of her chest pt is on blood thinners bryising noted to upper arm and left rib area. Aspirin was not taken prior to arrival. Adult Sepsis Screening: The patient does not have new or worsening altered mentation. Patient's respiratory rate is less than 22. Systolic blood pressure is greater than 100. Patient has a qSOFA score of 0- Negative Sepsis Screen. Suicide/Homicide risk assessment- the patient denies having any suicidal and/or homicidal ideations and does not present with any other emotional, behavioral or mental health complaints. Status: Patient is not a environmental services manager or dependent. Transition of care: patient was not received from another setting of care. 11:21 Acuity: DESTIN Level 3 dls 11:21 Method Of Arrival: Walkin/Carried/Asstd dls Triage Assessment: 11:26 General: Appears in no apparent distress, well developed, Behavior is cooperative. dls Pain: Pain currently is 7 out of 10 on a pain scale. HIV screening NA for this visit Offered previously. 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 albuterol sulfate 0.63 mg/3 mL Inhl nebu as needed. 2. aspirin 81 mg Oral TbEC 1 tab once daily 3. Flonase 50 mcg/actuation Nasal spsn 1 spray as needed 4. levothyroxine 175 mcg Oral tab 1 tab once daily 5. Lipitor 80 mg Oral tab 1 tab once daily 6. metformin 1,000 mg Oral tab 1 tab 2 times per day 7. omeprazole 40 mg Oral cpDR 1 cap once daily 8. Onglyza 5 mg oral tab 1 tab once daily 9. Plavix 75 mg Oral tab 1 tab once daily 10. Prednisone Oral 2 times per day 11. Reglan Oral as needed 12. Robaxin 500 mg Oral tab 2 tabs as needed 13. Tricor 145 mg Oral tab 1 tab once daily 14. Zoloft 100 mg Oral tab 2 tabs once daily - PMHx: cancer-larynx; Diabetes - NIDDM: controlled; GERD; Hypercholesterolemia; Hypothyroidism; Stroke; - PSHx: Hysterectomy; Cholecystectomy; Tubal ligation; Tracheostomy; - Social history: Smoking status: Patient/guardian denies using No barriers to communication noted. - Family history: Not pertinent. - : The pt / caregiver states he / she is on anticoagulants: Plavix. Home medication list is obtained from the patient, [employer] import data. - Exposure Risk Screening:: None identified. Screenin:19 Infection Control. ct3 14:38 Screening information is obtained from the patient. Fall risk: No risks identified. kcs Assistance ADL's: requires no assistance with activities of daily living. Abuse/DV Screen: The patient / caregiver reports he/she is: not in a situation that causes fear, pain or injury. Nutritional screening: No deficits noted. Advance Directives: Currently, there is no health care proxy. home support is adequate. Assessment: 14:38 Reassessment: Patient moving all extremities.. General: Appears comfortable, well kcs developed, well nourished, well groomed, Behavior is cooperative, pleasant. Pain: Location: left shoulder. Neurological: Level of Consciousness is awake, alert. Respiratory: Airway is patent Respiratory effort is even, unlabored, Respiratory pattern is regular, symmetrical, stoma patent. Derm: Skin is intact, is healthy with good turgor, Skin is dry, Skin is normal. Vital Signs: 11:19 BP 113 / 85; Pulse 71; Resp 18; Temp 97.9(O); Pulse Ox 94% on R/A; Weight 90.72 kg (R); ct3 Height 5 ft. 11 in. (180.34 cm) (R); Pain 7/10; 14:28 BP 118 / 69; Pulse 68; Resp 18; Temp 97.5(O); Pulse Ox 98% on R/A; Pain 7/10; ct3 11:19 Body Mass Index 27.89 (90.72 kg, 180.34 cm) ct3 Vitals: 11:19 Log In Time: September 03, 2016 at 11:17. ct3 ED Course: 11:19 Patient visited by Aleida Mann PCA. ct3 11:19 LA CASTANON is Private Physician. ct3 11:19 Patient moved to Waiting ct3 11:21 Patient moved to Pre RCE ct3 11:23 Triage Initiated dls 12:44 Patient moved to Triage 2 kcs 13:11 Patient visited by Emely Garay RN. mk4 13:11 Mahad Rinaldi PA-C is PHCP. ar2 13:11 Carmen Yanez MD is Attending Physician. ar2 13:21 Patient visited by Mahad Rinaldi PA-C. ar2 13:27 Patient moved to TR1 dls 14:05 Patient visited by Aleida Mann PCA. ct3 14:24 [facility] was scanned into [employer] and attached to record. lg 14:25 Patient moved to PR1 / 25 kcs 14:28 Patient visited by Aleida Mann PCA. ct3 14:32 LA CASTANON is Referral Physician. ar2 14:38 The patient / caregiver is instructed regarding the plan of care and ED course. kcs 14:38 No IV's were initiated during this patient's visit. No procedures done that require kcs assistance. 15:32 Shoulder, Complete Returned. EDMS 15:32 Rib Unilat W/PA Chest Only Returned. EDMS 09/04 11:09 T-Sheet-- Draft Copy was scanned into [employer] and attached to record. gb Order Results: Radiology Order: Shoulder, Complete Test: Shoulder, Complete REASON FOR EXAMINATION: Trauma; LEFT SHOULDER, THREE VIEWS:; ; There is no evidence of an acute fracture, dislocation or intrinsic bone; disease.; ; IMPRESSION:; ; No fracture or dislocation.; ; ; Signed by; Wilbur Juárez MD 09/04/2016 09:24 A; Radiology Order: Rib Unilat W/PA Chest Only Test: Rib Unilat W/PA Chest Only REASON FOR EXAMINATION: Trauma; LEFT RIB SERIES:; ; Four views of left ribs are performed.; ; There is no evidence of fracture or bone lesion.; ; A PA view of the chest demonstrates no infiltrate, pneumothorax, or pleural; effusion. The cardiomediastinal silhouette is unremarkable.; ; IMPRESSION:; ; Negative left rib series.; ; ; Signed by; Wilbur Juárez MD 09/04/2016 09:24 A; Outcome: 09/03 14:33 Discharge ordered by Provider. ar2 14:38 Discharge Assessment: Patient awake, alert and oriented x 3. No cognitive and/or kcs functional deficits noted. Patient verbalized understanding of disposition instructions. Patient awake and alert. patient administered narcotics - no. The following High Risk Discharge criteria are identified: None. Discharged to home ambulatory, with significant other. Condition: stable. Discharge instructions given to patient, Instructed on discharge instructions, follow up and referral plans. Demonstrated understanding of instructions, Pt was receptive of discharge instructions/ teaching. No special radiology studies were completed. Property sent home with patient. 14:42 Patient left the ED. kcs Signatures: Dispatcher MedHost EDMarissa Potter, RN RN Leonarda Navarrete RN RN dls Tran Rojas, Reg Reg gb Cecil Goyal, Reg Reg lg Mahad Rinaldi, PA-C PA-C ar2 Aleida Mann, PHOTOGRAPHER HELPER PHOTOGRAPHER HELPER ct3 Emely Garay RN RN mk4 Chart Complete EDERD
--- NOTE | 2016-09-05 15:43 | EDDOCDS ---
Physician Documentation [facility] Name: Kathy Bradshaw Age: 35 yrs Sex: Female : 1980 Arrival Date: 09/03/2016 Time: 11:17 Bed PR Private MD: LA CASTANON Disposition: 09/03/16 14:33 Discharged to Home/Self Care. Impression: Contusion of left shoulder, Sprain of ribs - contusion. - Condition is Stable. - Discharge Instructions: Contusion. - Medication Reconciliation, Local Pharmacy Hours form. - Follow up: LA CASTANON; When: Call to arrange an appointment; Reason: Recheck today's complaints, Continuance of care. - Problem is new. - Symptoms are unchanged. Historical: - Allergies: Avelox (Hives); SULFA (SULFONAMIDES) (Hives); - Home Meds: 1. albuterol sulfate 0.63 mg/3 mL Inhl nebu as needed. 2. aspirin 81 mg Oral TbEC 1 tab once daily 3. Flonase 50 mcg/actuation Nasal spsn 1 spray as needed 4. levothyroxine 175 mcg Oral tab 1 tab once daily 5. Lipitor 80 mg Oral tab 1 tab once daily 6. metformin 1,000 mg Oral tab 1 tab 2 times per day 7. omeprazole 40 mg Oral cpDR 1 cap once daily 8. Onglyza 5 mg oral tab 1 tab once daily 9. Plavix 75 mg Oral tab 1 tab once daily 10. Prednisone Oral 2 times per day 11. Reglan Oral as needed 12. Robaxin 500 mg Oral tab 2 tabs as needed 13. Tricor 145 mg Oral tab 1 tab once daily 14. Zoloft 100 mg Oral tab 2 tabs once daily - PMHx: cancer-larynx; Diabetes - NIDDM: controlled; GERD; Hypercholesterolemia; Hypothyroidism; Stroke; - PSHx: Hysterectomy; Cholecystectomy; Tubal ligation; Tracheostomy; - Social history: Smoking status: Patient/guardian denies using No barriers to communication noted. - Family history: Not pertinent. - : The pt / caregiver states he / she is on anticoagulants: Plavix. Home medication list is obtained from the patient, [employer] import data. - Exposure Risk Screening:: None identified. 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 11 in. (180.34 cm) (R); Pain 7/10; 14:28 BP 118 / 69; Pulse 68; Resp 18; Temp 97.5(O); Pulse Ox 98% on R/A; Pain 7/10; ct3 11:19 Body Mass Index 27.89 (90.72 kg, 180.34 cm) ct3 MDM: 13:27 Shoulder, Complete Ordered. EDMS 13:28 Rib Unilat W/PA Chest Only Ordered. EDMS 13:51 Financial registration complete. 14: [facility] Payment Agreement was scanned into Stay[employer] and attached to record. 09/04 11:09 T-Sheet-- Draft Copy was scanned into Stay[employer] and attached to record. gb Signatures: Dispatcher MedHost Marissa Calvert RN RN kcs Scott, Debra, RN RN dls Tran Rojas, Reg Reg gb Cecil Goyal, Reg Reg lg Mahad Rinaldi PA-C PATino [email or web address] The chart was reviewed and I authenticate all verbal orders and agree with the evaluation and treatment provided.Attachments: 09/03 14:24 [facility] Payment Agreement 09/04 11:09 T-Sheet-- Draft Copy gb Chart Complete MTDD
--- NOTE | 2016-09-05 15:43 | EDDOCDS ---
Physician Documentation [facility] Name: Kathy Bradshaw Age: 35 yrs Sex: Female : 1980 Arrival Date: 09/03/2016 Time: 11:17 Bed PR Private MD: LA CASTANON Disposition: 09/03/16 14:33 Discharged to Home/Self Care. Impression: Contusion of left shoulder, Sprain of ribs - contusion. - Condition is Stable. - Discharge Instructions: Contusion. - Medication Reconciliation, Local Pharmacy Hours form. - Follow up: LA CASTANON; When: Call to arrange an appointment; Reason: Recheck today's complaints, Continuance of care. - Problem is new. - Symptoms are unchanged. Historical: - Allergies: Avelox (Hives); SULFA (SULFONAMIDES) (Hives); - Home Meds: 1. albuterol sulfate 0.63 mg/3 mL Inhl nebu as needed. 2. aspirin 81 mg Oral TbEC 1 tab once daily 3. Flonase 50 mcg/actuation Nasal spsn 1 spray as needed 4. levothyroxine 175 mcg Oral tab 1 tab once daily 5. Lipitor 80 mg Oral tab 1 tab once daily 6. metformin 1,000 mg Oral tab 1 tab 2 times per day 7. omeprazole 40 mg Oral cpDR 1 cap once daily 8. Onglyza 5 mg oral tab 1 tab once daily 9. Plavix 75 mg Oral tab 1 tab once daily 10. Prednisone Oral 2 times per day 11. Reglan Oral as needed 12. Robaxin 500 mg Oral tab 2 tabs as needed 13. Tricor 145 mg Oral tab 1 tab once daily 14. Zoloft 100 mg Oral tab 2 tabs once daily - PMHx: cancer-larynx; Diabetes - NIDDM: controlled; GERD; Hypercholesterolemia; Hypothyroidism; Stroke; - PSHx: Hysterectomy; Cholecystectomy; Tubal ligation; Tracheostomy; - Social history: Smoking status: Patient/guardian denies using No barriers to communication noted. - Family history: Not pertinent. - : The pt / caregiver states he / she is on anticoagulants: Plavix. Home medication list is obtained from the patient, [employer] import data. - Exposure Risk Screening:: None identified. 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 11 in. (180.34 cm) (R); Pain 7/10; 14:28 BP 118 / 69; Pulse 68; Resp 18; Temp 97.5(O); Pulse Ox 98% on R/A; Pain 7/10; ct3 11:19 Body Mass Index 27.89 (90.72 kg, 180.34 cm) ct3 MDM: 13:27 Shoulder, Complete Ordered. EDMS 13:28 Rib Unilat W/PA Chest Only Ordered. EDMS 13:51 Financial registration complete. 14: [facility] Payment Agreement was scanned into [employer] and attached to record. 09/04 11:09 T-Sheet-- Draft Copy was scanned into [employer] and attached to record. gb Signatures: Dispatcher MedHost Marissa Calvert RN RN kcs Scott, Debra, RN RN dls Tran Rojas, Reg Reg gb Cecil Goyal, Reg Reg lg Mahad Rinaldi PA-C PATino [email or web address] The chart was reviewed and I authenticate all verbal orders and agree with the evaluation and treatment provided.Attachments: 09/03 14:24 [facility] Payment Agreement 09/04 11:09 T-Sheet-- Draft Copy gb Chart Complete MTDD
== END 2016-09-03 14:42 | disposition home or self-care (01) ==
LOC: M ED 11:17
DX: S40.012A Contusion of left shoulder, initial encounter (principal); S20.212A Contusion of left front wall of thorax, initial encounter; W01.190A Fall on same level from slipping, tripping and stumbling with subsequent striking against furniture, initial encounter; Y92.018 Other place in single-family (private) house as the place of occurrence of the external cause; Y93.89 Activity, other specified; Y99.8 Other external cause status; E11.9 Type 2 diabetes mellitus without complications; E03.9 Hypothyroidism, unspecified; E78.00 Pure hypercholesterolemia, unspecified; Z85.21 Personal history of malignant neoplasm of larynx; Z86.73 Personal history of transient ischemic attack (TIA), and cerebral infarction without residual deficits; Z79.899 Other long term (current) drug therapy; Z79.01 Long term (current) use of anticoagulants; Z79.82 Long term (current) use of aspirin; Z79.84 Long term (current) use of oral hypoglycemic drugs; Z79.52 Long term (current) use of systemic steroids; Z88.1 Allergy status to other antibiotic agents; Z88.2 Allergy status to sulfonamides

== ENCOUNTER → 2016-09-06 | Outpatient (CLI) | payer OTHER ==
[2016-09-06 10:32] LABS: ANION GAP 8 MEQ/L (8-16); BLOOD UREA NITROGEN 10 MG/DL (7-18); CARBON DIOXIDE LEVEL 30 MEQ/L (21-32); CHLORIDE LEVEL 101 MEQ/L (98-107); CHOLESTEROL LEVEL 219 MG/DL (<200); CREATININE FOR GFR 0.86 MG/DL (0.55-1.02); FREE T4 0.37 NG/DL (0.76-1.46); GLOMERULAR FILTRATION RATE > 60.0 (>60); GLUCOSE, FASTING 158 MG/DL (70-105); POTASSIUM SERUM 4.3 MEQ/L (3.5-5.1); SODIUM LEVEL 139 MEQ/L (136-145); TRIGLYCERIDES LEVEL 815 MG/DL (<150)
== END ==
LOC: M LAB 09:15
PROVIDERS: ATTEND Family Medicine
DX: E03.9 Hypothyroidism, unspecified (principal)

== ENCOUNTER → 2016-09-07 | Outpatient (REF) | payer OTHER | LOC: M SFHCPLAZ 14:37 | DX: Z51.81 Encounter for therapeutic drug level monitoring (principal); Z79.899 Other long term (current) drug therapy; F32.9 Major depressive disorder, single episode, unspecified ==

== ENCOUNTER 2016-09-12 18:17 | Emergency (ER) | payer OTHER ==
[2016-09-12] MEDS ORDERED: ACETAMINOPH W/CODEINE #3 TAB UD As Ordered ONE (18:58)
[2016-09-12] MEDS ORDERED: ACETAMINOPHEN/CODEINE #3 TABLET (BULK) As Ordered ONE (20:40)
--- NOTE | 2016-09-12 20:48 | REP ---
LEFT SHOULDER, COMPLETE: 09/12/2016. Comparison: 09/03/2016. Three views are provided. AC joint shows no widening of the joint space or elevation of the clavicle. There is good range of motion with internal and external rotation. Glenohumeral joint intact. No abnormal soft tissue calcification, subluxation or dislocation. Clavicle, ribs, scapula and humeral head without fracture. Impression: 1. Negative left shoulder series. Stable from 09/03/2016. Unreviewed
--- NOTE | 2016-09-12 21:00 | EDDOCDS ---
Physician Documentation [facility] Name: Kathy Bradshaw Age: 35 yrs Sex: Female : 1980 Arrival Date: 09/12/2016 Time: 18:17 Bed PR Private MD: LA CASTANON Disposition: 09/12/16 20:39 Discharged to Home/Self Care. Impression: Contusion of left shoulder. - Condition is Stable. - Discharge Instructions: Shoulder Pain. - Prescriptions for Tylenol- Codeine #3 300-30 mg Oral Tablet - take 2 tablets by ORAL route every 6 hours As needed MDD: 4 tabs; 12 tablet. - Medication Reconciliation, Local Pharmacy Hours form. - Follow up: [facility]; When: 2 - 3 days; Reason: Recheck today's complaints, Continuance of care. - Problem is new. - Symptoms have improved. - Notes: USE MEDICATION INSTRUCTED, FOLLOW UP WITH [facility] Historical: - Allergies: Avelox (Hives); SULFA (SULFONAMIDES) (Hives); - Home Meds: 1. albuterol sulfate 0.63 mg/3 mL Inhl nebu as needed. 2. aspirin 81 mg Oral TbEC 1 tab once daily 3. Flonase 50 mcg/actuation Nasal spsn 1 spray as needed 4. levothyroxine 175 mcg Oral tab 1 tab once daily 5. Lipitor 80 mg Oral tab 1 tab once daily 6. metformin 1,000 mg Oral tab 1 tab 2 times per day 7. omeprazole 40 mg Oral cpDR 1 cap once daily 8. Onglyza 5 mg oral tab 1 tab once daily 9. Plavix 75 mg Oral tab 1 tab once daily 10. Prednisone Oral 2 times per day 11. Reglan Oral as needed 12. Robaxin 500 mg Oral tab 2 tabs as needed 13. Tricor 145 mg Oral tab 1 tab once daily 14. Zoloft 100 mg Oral tab 2 tabs once daily 15. Tylenol 325 mg Oral tab 2 tabs PRN (Last dose: 09/12/2016 13:00) - PMHx: cancer-larynx; Diabetes - NIDDM: controlled; GERD; Hypercholesterolemia; Hypothyroidism; Stroke; - PSHx: Tracheostomy; Tubal ligation; Cholecystectomy; Hysterectomy; - Social history: Smoking status: Patient uses tobacco products, heavy tobacco smoker. No barriers to communication noted, The patient speaks fluent Amharic, Speaks appropriately for age. - Family history: Not pertinent. - : The pt / caregiver states he / she is on anticoagulants: Plavix. Home medication list is obtained from the patient. - Exposure Risk Screening:: None identified. 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 11 in. (180.34 cm); 20:51 BP 134 / 76; Pulse 72; Resp 18; Temp 97.7; Pulse Ox 91% on R/A; Pain 4/10; ttb 18:20 Body Mass Index 40.45 (131.54 kg, 180.34 cm) elp Procedures: 20:48 Fracture care/splinting: Splint applied to left arm using sling, applied by nurse. ck7 Examined by me, post splint application: neurovascular intact, 2+ distal pulses palpable, brisk capillary refill noted, Patient tolerated well. MDM: 18:56 Acetaminophen-Codeine 300 mg-30 mg 1 tabs PO once ordered. ck7 18:57 Shoulder, Complete Ordered. EDMS 19:03 Financial registration complete. gb 19:03 [facility] Payment Agreement was scanned into [employer] and attached to record. gb 20:36 Sling ordered. ck7 20:37 Acetaminophen-Codeine, 4 pack- 300 mg-30 mg 1 packets PO once; Dispense with patient. ck7 Take per package instructions. ordered. Administered Medications: 19:01 Drug: Acetaminophen-Codeine 1 tabs [acetaminophen 300 mg-codeine 30 mg tablet (1 tabs)] ms18 Route: PO; 20:51 Follow up: Response: Confirmed pt not driving.; No Adverse Reaction ttb 20:50 Drug: Acetaminophen-Codeine, 4 pack- 1 packets [acetaminophen 300 mg-codeine 30 mg ttb tablet (1 tabs)] {Co-Signature: lf1 (Francisca Arias RN).} Route: PO; 20:51 Follow up: Response: Med's dispensed home ttb Signatures: Dispatcher MedHost EDMS Tran Rojas, Reg Reg gb Shilpi MercerRN RN ck1 Fer Meehan, RPA-C [id number]-[id number] Celeste Valentine RN RN ttb Yumiko Kline RN ms18 Francisca Arias RN lf1 The chart was reviewed and I authenticate all verbal orders and agree with the evaluation and treatment provided.Attachments: 19:03 [facility] Payment Agreement gb MTDD
--- NOTE | 2016-09-12 21:00 | EDDOCDS ---
Nurse's Notes [facility] Name: Kathy Bradshaw Age: 35 yrs Sex: Female : 1980 Arrival Date: 09/12/2016 Time: 18:17 Bed PR1 / 25 Private MD: LA CASTANON Diagnosis: Contusion of left shoulder Presentation: 09/12 18:23 Presenting complaint: Patient states: Injured left shoulder a week and a half ago. Fell ck1 into a toy box, worsening pain since. Adult Sepsis Screening: The patient does not have new or worsening altered mentation. Patient's respiratory rate is less than 22. Systolic blood pressure is greater than 100. Patient has a qSOFA score of 0- Negative Sepsis Screen. Suicide/Homicide risk assessment- the patient denies having any suicidal and/or homicidal ideations and does not present with any other emotional, behavioral or mental health complaints. Status: Patient is not a technical services rep or dependent. Transition of care: patient was not received from another setting of care. 18:23 Acuity: DESTIN Level 4 ck1 18:23 Method Of Arrival: Walkin/Carried/Asstd ck1 Triage Assessment: 18:26 General: Appears in no apparent distress, comfortable, Behavior is appropriate for age, ck1 cooperative. Pain: Location: left shoulder Pain currently is 8 out of 10 on a pain scale. HIV screening NA for this visit Offered previously. Derm: Skin is intact, is healthy with good turgor, Skin is pink, warm & dry. Musculoskeletal: Circulation, motion, and sensation intact Range of motion intact in all extremities. 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 albuterol sulfate 0.63 mg/3 mL Inhl nebu as needed. 2. aspirin 81 mg Oral TbEC 1 tab once daily 3. Flonase 50 mcg/actuation Nasal spsn 1 spray as needed 4. levothyroxine 175 mcg Oral tab 1 tab once daily 5. Lipitor 80 mg Oral tab 1 tab once daily 6. metformin 1,000 mg Oral tab 1 tab 2 times per day 7. omeprazole 40 mg Oral cpDR 1 cap once daily 8. Onglyza 5 mg oral tab 1 tab once daily 9. Plavix 75 mg Oral tab 1 tab once daily 10. Prednisone Oral 2 times per day 11. Reglan Oral as needed 12. Robaxin 500 mg Oral tab 2 tabs as needed 13. Tricor 145 mg Oral tab 1 tab once daily 14. Zoloft 100 mg Oral tab 2 tabs once daily 15. Tylenol 325 mg Oral tab 2 tabs PRN (Last dose: 09/12/2016 13:00) - PMHx: cancer-larynx; Diabetes - NIDDM: controlled; GERD; Hypercholesterolemia; Hypothyroidism; Stroke; - PSHx: Tracheostomy; Tubal ligation; Cholecystectomy; Hysterectomy; - Social history: Smoking status: Patient uses tobacco products, heavy tobacco smoker. No barriers to communication noted, The patient speaks fluent Divehi, Speaks appropriately for age. - Family history: Not pertinent. - : The pt / caregiver states he / she is on anticoagulants: Plavix. Home medication list is obtained from the patient. - Exposure Risk Screening:: None identified. Screenin:20 Infection Control. elp 20:51 Screening information is obtained from the patient. Fall risk: No risks identified. ttb Assistance ADL's: requires no assistance with activities of daily living. Abuse/DV Screen: The patient / caregiver reports he/she is: not in a situation that causes fear, pain or injury. Nutritional screening: No deficits noted. Advance Directives: Currently, there is no health care proxy. home support is adequate. Assessment: 20:51 General: Appears in no apparent distress, well nourished, well groomed, Behavior is ttb appropriate for age, cooperative, pleasant. Neurological: Level of Consciousness is awake, alert. Cardiovascular: Chest pain is denied. Respiratory: Airway is patent trach stoma noted. Pt sat 90-91% on RA at [place]. She states this is her baseline. Denies SOB, resp distress. GI: Denies nausea, vomiting, pain. Derm: Skin is normal. Musculoskeletal: Range of motion limited in states left shoulder d/t pain. 20:54 General: medicaid cab requested. Secured per request.. ttb Vital Signs: 18:20 BP 142 / 94; Pulse 74; Resp 18; Temp 96.9; Pulse Ox 95% ; Weight 131.54 kg; Height 5 elp ft. 11 in. (180.34 cm); 20:51 BP 134 / 76; Pulse 72; Resp 18; Temp 97.7; Pulse Ox 91% on R/A; Pain 4/10; ttb 18:20 Body Mass Index 40.45 (131.54 kg, 180.34 cm) [facility] Vitals: 18:19 Log In Time: September 12, 2016 at 18:17. [facility] ED Course: 18:18 Patient visited by Octavia Storey PCA. elp 18:18 Patient moved to Waiting elp 18:19 LA CASTANON is Private Physician. elp 18:21 Patient moved to Pre RCE elp 18:24 Triage Initiated ck1 18:27 Patient moved to Triage 3 ck1 18:29 [facility] ck7 18:29 Leia Martinez MD is Attending Physician. ck7 18:33 Patient visited by Fer Meehan RPA-C. ck7 19:01 Patient moved to TR2 ms18 19:03 [facility] Payment Agreement was scanned into [employer] and attached to record. gb 19:23 Patient visited by Fer Meehan RPA-C. ck7 20:00 Patient visited by Fer Meehan RPA-C. ck7 20:21 Patient moved to PR1 / 25 ajs 20:36 Patient visited by Fer Meehan RPA-C. ck7 20:38 [facility] is Referral Physician. ck7 20:51 The patient / caregiver is instructed regarding the plan of care and ED course. ttb Accompanied by Significant Other, Patient has correct armband on for positive identification. 20:51 No IV's were initiated during this patient's visit. No procedures done that require ttb assistance. 20:54 Sling applied to left arm. Patient with positive distal sensation and brisk distal ttb capillary refill after application. Administered Medications: 19:01 Drug: Acetaminophen-Codeine 1 tabs [acetaminophen 300 mg-codeine 30 mg tablet (1 tabs)] ms18 Route: PO; 20:51 Follow up: Response: Confirmed pt not driving.; No Adverse Reaction ttb 20:50 Drug: Acetaminophen-Codeine, 4 pack- 1 packets [acetaminophen 300 mg-codeine 30 mg ttb tablet (1 tabs)] {Co-Signature: lf1 (Francisca Arias RN).} Route: PO; 20:51 Follow up: Response: Med's dispensed home ttb Order Results: There are currently no results for this order. Outcome: 20:39 Discharge ordered by Provider. ck7 20:51 Discharge Assessment: Patient awake, alert and oriented x 3. No cognitive and/or ttb functional deficits noted. Patient verbalized understanding of disposition instructions. Patient awake and alert. patient administered narcotics - yes. Pt provided with safe discharge. The following High Risk Discharge criteria are identified: None. Discharged to home ambulatory, with significant other. Condition: good Condition: stable Condition: improved. Discharge instructions given to patient, significant other, Instructed on discharge instructions, follow up and referral plans. medication usage, no driving heavy equipment, Rest, Ice, Compression and Elevation. no drinking with medication, Demonstrated understanding of instructions, medications, no d/d with narcs Pt was receptive of discharge instructions/ teaching. Prescriptions given X 1, meds dispensed as well. No special radiology studies were completed. Property :Personal belongings accompany Pt. 20:59 Patient left the ED. ttb Signatures: Tran Rojas, Reg Reg gb Shilpi MercerRN RN ck1 Margaret Lara Christopher, RPA-C RPA-Cck7 Celeste Valentine, RN RN ttOctavia Valentino, Yumiko Emery RN RN ms18 Francisca Arias RN lf1 MTDD
--- NOTE | 2016-09-14 22:00 | EDDOCDS ---
Physician Documentation [facility] Name: Kathy Bradshaw Age: 35 yrs Sex: Female : 1980 Arrival Date: 09/12/2016 Time: 18:17 Bed PR Private MD: LA CASTANON Disposition: 09/12/16 20:39 Discharged to Home/Self Care. Impression: Contusion of left shoulder. - Condition is Stable. - Discharge Instructions: Shoulder Pain. - Prescriptions for Tylenol- Codeine #3 300-30 mg Oral Tablet - take 2 tablets by ORAL route every 6 hours As needed MDD: 4 tabs; 12 tablet. - Medication Reconciliation, Local Pharmacy Hours form. - Follow up: [facility]; When: 2 - 3 days; Reason: Recheck today's complaints, Continuance of care. - Problem is new. - Symptoms have improved. - Notes: USE MEDICATION INSTRUCTED, FOLLOW UP WITH [facility] Historical: - Allergies: Avelox (Hives); SULFA (SULFONAMIDES) (Hives); - Home Meds: 1. albuterol sulfate 0.63 mg/3 mL Inhl nebu as needed. 2. aspirin 81 mg Oral TbEC 1 tab once daily 3. Flonase 50 mcg/actuation Nasal spsn 1 spray as needed 4. levothyroxine 175 mcg Oral tab 1 tab once daily 5. Lipitor 80 mg Oral tab 1 tab once daily 6. metformin 1,000 mg Oral tab 1 tab 2 times per day 7. omeprazole 40 mg Oral cpDR 1 cap once daily 8. Onglyza 5 mg oral tab 1 tab once daily 9. Plavix 75 mg Oral tab 1 tab once daily 10. Prednisone Oral 2 times per day 11. Reglan Oral as needed 12. Robaxin 500 mg Oral tab 2 tabs as needed 13. Tricor 145 mg Oral tab 1 tab once daily 14. Zoloft 100 mg Oral tab 2 tabs once daily 15. Tylenol 325 mg Oral tab 2 tabs PRN (Last dose: 09/12/2016 13:00) - PMHx: cancer-larynx; Diabetes - NIDDM: controlled; GERD; Hypercholesterolemia; Hypothyroidism; Stroke; - PSHx: Tracheostomy; Tubal ligation; Cholecystectomy; Hysterectomy; - Social history: Smoking status: Patient uses tobacco products, heavy tobacco smoker. No barriers to communication noted, The patient speaks fluent Azeri, Speaks appropriately for age. - Family history: Not pertinent. - : The pt / caregiver states he / she is on anticoagulants: Plavix. Home medication list is obtained from the patient. - Exposure Risk Screening:: None identified. 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 11 in. (180.34 cm); 20:51 BP 134 / 76; Pulse 72; Resp 18; Temp 97.7; Pulse Ox 91% on R/A; Pain 4/10; ttb 18:20 Body Mass Index 40.45 (131.54 kg, 180.34 cm) elp Procedures: 20:48 Fracture care/splinting: Splint applied to left arm using sling, applied by nurse. ck7 Examined by me, post splint application: neurovascular intact, 2+ distal pulses palpable, brisk capillary refill noted, Patient tolerated well. MDM: 18:56 Acetaminophen-Codeine 300 mg-30 mg 1 tabs PO once ordered. ck7 18:57 Shoulder, Complete Ordered. EDMS 19:03 Financial registration complete. gb 19:03 [facility] Payment Agreement was scanned into [employer] and attached to record. gb 20:36 Sling ordered. ck7 20:37 Acetaminophen-Codeine, 4 pack- 300 mg-30 mg 1 packets PO once; Dispense with patient. ck7 Take per package instructions. ordered. 09/13 18:29 T-Sheet-- Draft Copy was scanned into [employer] and attached to record. klr Administered Medications: 09/12 19:01 Drug: Acetaminophen-Codeine 1 tabs [acetaminophen 300 mg-codeine 30 mg tablet (1 tabs)] ms18 Route: PO; 20:51 Follow up: Response: Confirmed pt not driving.; No Adverse Reaction ttb 20:50 Drug: Acetaminophen-Codeine, 4 pack- 1 packets [acetaminophen 300 mg-codeine 30 mg ttb tablet (1 tabs)] {Co-Signature: lf1 (Francisca Arias RN).} Route: PO; 20:51 Follow up: Response: Med's dispensed home ttb Signatures: Dispatcher [employer] EDMS Tran Rojas, Reg Reg gb Faith-Kylah,Shilpi,RN RN ck1 Fer Meehan, JAC-C RPA-Cck7 Celeste Valentine RN RN ttb Radha Rosas Mallory RN ms18 Francisca Arias RN lf1 The chart was reviewed and I authenticate all verbal orders and agree with the evaluation and treatment provided.Attachments: 19:03 [facility] Payment Agreement gb 09/13 18:29 T-Sheet-- Draft Copy klr Chart Complete MTDD
--- NOTE | 2016-09-14 22:00 | EDDOCDS ---
Nurse's Notes [facility] Name: Kathy Bradshaw Age: 35 yrs Sex: Female : 1980 Arrival Date: 09/12/2016 Time: 18:17 Bed PR1 / 25 Private MD: LA CASTANON Diagnosis: Contusion of left shoulder Presentation: 09/12 18:23 Presenting complaint: Patient states: Injured left shoulder a week and a half ago. Fell ck1 into a toy box, worsening pain since. Adult Sepsis Screening: The patient does not have new or worsening altered mentation. Patient's respiratory rate is less than 22. Systolic blood pressure is greater than 100. Patient has a qSOFA score of 0- Negative Sepsis Screen. Suicide/Homicide risk assessment- the patient denies having any suicidal and/or homicidal ideations and does not present with any other emotional, behavioral or mental health complaints. Status: Patient is not a job service consultant or dependent. Transition of care: patient was not received from another setting of care. 18:23 Acuity: DESTIN Level 4 ck1 18:23 Method Of Arrival: Walkin/Carried/Asstd ck1 Triage Assessment: 18:26 General: Appears in no apparent distress, comfortable, Behavior is appropriate for age, ck1 cooperative. Pain: Location: left shoulder Pain currently is 8 out of 10 on a pain scale. HIV screening NA for this visit Offered previously. Derm: Skin is intact, is healthy with good turgor, Skin is pink, warm & dry. Musculoskeletal: Circulation, motion, and sensation intact Range of motion intact in all extremities. 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 albuterol sulfate 0.63 mg/3 mL Inhl nebu as needed. 2. aspirin 81 mg Oral TbEC 1 tab once daily 3. Flonase 50 mcg/actuation Nasal spsn 1 spray as needed 4. levothyroxine 175 mcg Oral tab 1 tab once daily 5. Lipitor 80 mg Oral tab 1 tab once daily 6. metformin 1,000 mg Oral tab 1 tab 2 times per day 7. omeprazole 40 mg Oral cpDR 1 cap once daily 8. Onglyza 5 mg oral tab 1 tab once daily 9. Plavix 75 mg Oral tab 1 tab once daily 10. Prednisone Oral 2 times per day 11. Reglan Oral as needed 12. Robaxin 500 mg Oral tab 2 tabs as needed 13. Tricor 145 mg Oral tab 1 tab once daily 14. Zoloft 100 mg Oral tab 2 tabs once daily 15. Tylenol 325 mg Oral tab 2 tabs PRN (Last dose: 09/12/2016 13:00) - PMHx: cancer-larynx; Diabetes - NIDDM: controlled; GERD; Hypercholesterolemia; Hypothyroidism; Stroke; - PSHx: Tracheostomy; Tubal ligation; Cholecystectomy; Hysterectomy; - Social history: Smoking status: Patient uses tobacco products, heavy tobacco smoker. No barriers to communication noted, The patient speaks fluent Malay, Speaks appropriately for age. - Family history: Not pertinent. - : The pt / caregiver states he / she is on anticoagulants: Plavix. Home medication list is obtained from the patient. - Exposure Risk Screening:: None identified. Screenin:20 Infection Control. elp 20:51 Screening information is obtained from the patient. Fall risk: No risks identified. ttb Assistance ADL's: requires no assistance with activities of daily living. Abuse/DV Screen: The patient / caregiver reports he/she is: not in a situation that causes fear, pain or injury. Nutritional screening: No deficits noted. Advance Directives: Currently, there is no health care proxy. home support is adequate. Assessment: 20:51 General: Appears in no apparent distress, well nourished, well groomed, Behavior is ttb appropriate for age, cooperative, pleasant. Neurological: Level of Consciousness is awake, alert. Cardiovascular: Chest pain is denied. Respiratory: Airway is patent trach stoma noted. Pt sat 90-91% on RA at [place]. She states this is her baseline. Denies SOB, resp distress. GI: Denies nausea, vomiting, pain. Derm: Skin is normal. Musculoskeletal: Range of motion limited in states left shoulder d/t pain. 20:54 General: medicaid cab requested. Secured per request.. ttb Vital Signs: 18:20 BP 142 / 94; Pulse 74; Resp 18; Temp 96.9; Pulse Ox 95% ; Weight 131.54 kg; Height 5 elp ft. 11 in. (180.34 cm); 20:51 BP 134 / 76; Pulse 72; Resp 18; Temp 97.7; Pulse Ox 91% on R/A; Pain 4/10; ttb 18:20 Body Mass Index 40.45 (131.54 kg, 180.34 cm) [facility] Vitals: 18:19 Log In Time: September 12, 2016 at 18:17. el ED Course: 18:18 Patient visited by Octavia Storey PCA. elp 18:18 Patient moved to Waiting elp 18:19 LA CASTANON is Private Physician. elp 18:21 Patient moved to Pre RCE elp 18:24 Triage Initiated ck1 18:27 Patient moved to Triage 3 ck1 18:29 Fer M[facility]han [facility]-C [facility]. ck7 18:29 Leia Martinez MD is Attending Physician. ck7 18:33 Patient visited by Fer Meehan RPA-C. ck7 19:01 Patient moved to TR2 ms18 19:03 [facility] Payment Agreement was scanned into [employer] and attached to record. gb 19:23 Patient visited by Fer Meehan RPA-C. ck7 20:00 Patient visited by Fer Meehan RPA-C. ck7 20:21 Patient moved to PR1 / 25 ajs 20:36 Patient visited by Fer Meehan RPA-C. ck7 20:38 [facility] is Referral Physician. ck7 20:51 The patient / caregiver is instructed regarding the plan of care and ED course. ttb Accompanied by Significant Other, Patient has correct armband on for positive identification. 20:51 No IV's were initiated during this patient's visit. No procedures done that require ttb assistance. 20:54 Sling applied to left arm. Patient with positive distal sensation and brisk distal ttb capillary refill after application. 21:17 Shoulder, Complete Returned. EDMS 09/13 18:29 T-Sheet-- Draft Copy was scanned into [employer] and attached to record. klr Administered Medications: 09/12 19:01 Drug: Acetaminophen-Codeine 1 tabs [acetaminophen 300 mg-codeine 30 mg tablet (1 tabs)] ms18 Route: PO; 20:51 Follow up: Response: Confirmed pt not driving.; No Adverse Reaction ttb 20:50 Drug: Acetaminophen-Codeine, 4 pack- 1 packets [acetaminophen 300 mg-codeine 30 mg ttb tablet (1 tabs)] {Co-Signature: lf1 (Francisca Arias RN).} Route: PO; 20:51 Follow up: Response: Med's dispensed home ttb Order Results: Radiology Order: Shoulder, Complete Test: Shoulder, Complete REASON FOR EXAMINATION: Deformity/Swelling; LEFT SHOULDER, COMPLETE: 09/12/2016.; ; Comparison: 09/03/2016.; ; Three views are provided. AC joint shows no widening of the joint space or; elevation of the clavicle. There is good range of motion with internal and; external rotation. Glenohumeral joint intact. No abnormal soft tissue; calcification, subluxation or dislocation. Clavicle, ribs, scapula and humeral; head without fracture.; ; Impression:; ; 1. Negative left shoulder series. Stable from 09/03/2016.; ; ; ; ; Unreviewed; Outcome: 20:39 Discharge ordered by Provider. ck7 20:51 Discharge Assessment: Patient awake, alert and oriented x 3. No cognitive and/or ttb functional deficits noted. Patient verbalized understanding of disposition instructions. Patient awake and alert. patient administered narcotics - yes. Pt provided with safe discharge. The following High Risk Discharge criteria are identified: None. Discharged to home ambulatory, with significant other. Condition: good Condition: stable Condition: improved. Discharge instructions given to patient, significant other, Instructed on discharge instructions, follow up and referral plans. medication usage, no driving heavy equipment, Rest, Ice, Compression and Elevation. no drinking with medication, Demonstrated understanding of instructions, medications, no d/d with narcs Pt was receptive of discharge instructions/ teaching. Prescriptions given X 1, meds dispensed as well. No special radiology studies were completed. Property :Personal belongings accompany Pt. 20:59 Patient left the ED. ttb Signatures: Dispatcher [employer] EDMS Tran Rojas, Faustino Reg Shilpi TubbsRN RN ck1 Margaret Lara Christopher, RPA-C RPA-Cck7 Celeste Valentine RN RN ttb Octavia Storey, DEATH CLAIM CLERK DEATH CLAIM CLERK Yumiko Diamond RN RN ms18 Radha Rosas RN lf1 Chart Complete MTDD
--- NOTE | 2016-09-14 22:00 | EDDOCDS ---
Physician Documentation [facility] Name: Kathy Bradshaw Age: 35 yrs Sex: Female : 1980 Arrival Date: 09/12/2016 Time: 18:17 Bed PR Private MD: LA CASTANON Disposition: 09/12/16 20:39 Discharged to Home/Self Care. Impression: Contusion of left shoulder. - Condition is Stable. - Discharge Instructions: Shoulder Pain. - Prescriptions for Tylenol- Codeine #3 300-30 mg Oral Tablet - take 2 tablets by ORAL route every 6 hours As needed MDD: 4 tabs; 12 tablet. - Medication Reconciliation, Local Pharmacy Hours form. - Follow up: [facility]; When: 2 - 3 days; Reason: Recheck today's complaints, Continuance of care. - Problem is new. - Symptoms have improved. - Notes: USE MEDICATION INSTRUCTED, FOLLOW UP WITH [facility] Historical: - Allergies: Avelox (Hives); SULFA (SULFONAMIDES) (Hives); - Home Meds: 1. albuterol sulfate 0.63 mg/3 mL Inhl nebu as needed. 2. aspirin 81 mg Oral TbEC 1 tab once daily 3. Flonase 50 mcg/actuation Nasal spsn 1 spray as needed 4. levothyroxine 175 mcg Oral tab 1 tab once daily 5. Lipitor 80 mg Oral tab 1 tab once daily 6. metformin 1,000 mg Oral tab 1 tab 2 times per day 7. omeprazole 40 mg Oral cpDR 1 cap once daily 8. Onglyza 5 mg oral tab 1 tab once daily 9. Plavix 75 mg Oral tab 1 tab once daily 10. Prednisone Oral 2 times per day 11. Reglan Oral as needed 12. Robaxin 500 mg Oral tab 2 tabs as needed 13. Tricor 145 mg Oral tab 1 tab once daily 14. Zoloft 100 mg Oral tab 2 tabs once daily 15. Tylenol 325 mg Oral tab 2 tabs PRN (Last dose: 09/12/2016 13:00) - PMHx: cancer-larynx; Diabetes - NIDDM: controlled; GERD; Hypercholesterolemia; Hypothyroidism; Stroke; - PSHx: Tracheostomy; Tubal ligation; Cholecystectomy; Hysterectomy; - Social history: Smoking status: Patient uses tobacco products, heavy tobacco smoker. No barriers to communication noted, The patient speaks fluent Amharic, Speaks appropriately for age. - Family history: Not pertinent. - : The pt / caregiver states he / she is on anticoagulants: Plavix. Home medication list is obtained from the patient. - Exposure Risk Screening:: None identified. 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 11 in. (180.34 cm); 20:51 BP 134 / 76; Pulse 72; Resp 18; Temp 97.7; Pulse Ox 91% on R/A; Pain 4/10; ttb 18:20 Body Mass Index 40.45 (131.54 kg, 180.34 cm) elp Procedures: 20:48 Fracture care/splinting: Splint applied to left arm using sling, applied by nurse. ck7 Examined by me, post splint application: neurovascular intact, 2+ distal pulses palpable, brisk capillary refill noted, Patient tolerated well. MDM: 18:56 Acetaminophen-Codeine 300 mg-30 mg 1 tabs PO once ordered. ck7 18:57 Shoulder, Complete Ordered. EDMS 19:03 Financial registration complete. gb 19:03 [facility] Payment Agreement was scanned into [employer] and attached to record. gb 20:36 Sling ordered. ck7 20:37 Acetaminophen-Codeine, 4 pack- 300 mg-30 mg 1 packets PO once; Dispense with patient. ck7 Take per package instructions. ordered. 09/13 18:29 T-Sheet-- Draft Copy was scanned into [employer] and attached to record. klr Administered Medications: 09/12 19:01 Drug: Acetaminophen-Codeine 1 tabs [acetaminophen 300 mg-codeine 30 mg tablet (1 tabs)] ms18 Route: PO; 20:51 Follow up: Response: Confirmed pt not driving.; No Adverse Reaction ttb 20:50 Drug: Acetaminophen-Codeine, 4 pack- 1 packets [acetaminophen 300 mg-codeine 30 mg ttb tablet (1 tabs)] {Co-Signature: lf1 (Francisca Arias RN).} Route: PO; 20:51 Follow up: Response: Med's dispensed home ttb Signatures: Dispatcher [employer] EDMS Tran Rojas, Reg Reg gb Faith-Kylah,Shilpi,RN RN ck1 Fer Meehan, JAC-C RPA-Cck7 Celeste Valentine RN RN ttb Radha Rosas Mallory RN ms18 Francisca Arias RN lf1 The chart was reviewed and I authenticate all verbal orders and agree with the evaluation and treatment provided.Attachments: 19:03 [facility] Payment Agreement gb 09/13 18:29 T-Sheet-- Draft Copy klr Chart Complete MTDD
== END 2016-09-12 20:59 | disposition home or self-care (01) ==
LOC: M ED 18:17
DX: S40.012A Contusion of left shoulder, initial encounter (principal); W19.XXXA Unspecified fall, initial encounter; Y92.019 Unspecified place in single-family (private) house as the place of occurrence of the external cause; Y93.89 Activity, other specified; Y99.8 Other external cause status; E11.9 Type 2 diabetes mellitus without complications; K21.9 Gastro-esophageal reflux disease without esophagitis; E78.00 Pure hypercholesterolemia, unspecified; E03.9 Hypothyroidism, unspecified; Z86.73 Personal history of transient ischemic attack (TIA), and cerebral infarction without residual deficits; Z85.21 Personal history of malignant neoplasm of larynx; Z79.82 Long term (current) use of aspirin; Z79.899 Other long term (current) drug therapy; Z79.52 Long term (current) use of systemic steroids; Z79.02 Long term (current) use of antithrombotics/antiplatelets; Z88.8 Allergy status to other drugs, medicaments and biological substances; Z88.2 Allergy status to sulfonamides

== ENCOUNTER 2016-09-16 12:18 | Emergency (ER) | payer OTHER ==
[2016-09-16] MEDS ORDERED: IPRATROPIUM 0.5MG/ALBUTEROL 2.5MG INH SOL UD 3ML (DUONEB)(J7620) As Ordered ONE (12:40)
--- NOTE | 2016-09-16 12:59 | REP ---
Clinical: Cough . Comparison: 07/30/2016 . Technique: PA and lateral. Findings: The mediastinum and cardiac silhouette are normal. The lung mercedes are clear and without acute consolidation, effusion, or pneumothorax. The skeletal structures are intact and normal. Impression: 1. No acute cardiopulmonary process. Signed by Micha Maldonado MD 09/16/2016 12:50 P
--- NOTE | 2016-09-16 13:07 | EDDOCDS ---
Nurse's Notes [facility] Name: Kathy Bradshaw Age: 36 yrs Sex: Female : 1980 Arrival Date: 09/16/2016 Time: 12:18 Bed PR Private MD: Diagnosis: Acute bronchitis;Viral infection, unspecified Presentation: 09/16 12:21 Presenting complaint: Patient states: Right sided "lung pain" that hurts when she ttb breathes. Slight cough. Denies fevers. Pt states the thinks she has "pneumonia". Adult Sepsis Screening: The patient does not have new or worsening altered mentation. Patient's respiratory rate is less than 22. Systolic blood pressure is greater than 100. Patient has a qSOFA score of 0- Negative Sepsis Screen. Suicide/Homicide risk assessment- the patient denies having any suicidal and/or homicidal ideations and does not present with any other emotional, behavioral or mental health complaints. 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 Transition of care: patient was not received from another setting of care. 12:21 Acuity: DESTIN Level 3 ttb 12:21 Method Of Arrival: Walkin/Carried/Asstd ttb Triage Assessment: 12:26 General: Appears in no apparent distress, well nourished, Behavior is appropriate for ttb age, cooperative, pleasant. Pain: Location: right lung. HIV screening NA for this visit Offered previously. Neurological: Level of Consciousness is awake, alert. Cardiovascular: Chest pain is denied. Respiratory: Onset: The symptoms/episode began/occurred gradually, Airway is patent Respiratory effort is even, unlabored, Respiratory pattern is regular, symmetrical, trach site noted. Derm: Skin is normal. 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 Zoloft 100 mg Oral tab 2 tabs once daily 2. Abilify 5 mg Oral tab 1 tab once daily (Last dose: 09/16/2016 08:00) 3. Lamictal 25 mg Oral tab daily (Last dose: 09/16/2016 08:00) 4. albuterol sulfate 0.63 mg/3 mL Inhl nebu as needed. (Last dose: 09/14/2016) 5. aspirin 81 mg Oral TbEC 1 tab once daily (Last dose: 09/16/2016 08:00) 6. Flonase 50 mcg/actuation Nasal spsn 1 spray as needed (Last dose: 09/16/2016 08:00) 7. levothyroxine 175 mcg Oral tab 1 tab once daily (Last dose: 09/16/2016 08:00) 8. Lipitor 80 mg Oral tab 1 tab once daily (Last dose: 09/15/2016) 9. metformin 1,000 mg Oral tab 1 tab 2 times per day 10. omeprazole 40 mg Oral cpDR 1 cap once daily (Last dose: 09/16/2016 07:00) 11. Plavix 75 mg Oral tab 1 tab once daily (Last dose: 09/16/2016 08:00) 12. Tricor 145 mg Oral tab 1 tab once daily (Last dose: 09/15/2016) 13. Tylenol 325 mg Oral tab 2 tabs PRN 14. acetaminophen-codeine 300-30 mg oral tab 1 tab every 4 hours (Last dose: 09/16/2016 06:30) 15. pregabalin 100 mg oral cap 1 cap 2 times per day (Last dose: 09/16/2016 08:00) 16. aglyptan for diabetes 25 mg daily (Last dose: 09/15/2016 22:00) - PMHx: Stroke; Hypothyroidism; Hypercholesterolemia; GERD; Diabetes - NIDDM: controlled; cancer-larynx; - PSHx: Tracheostomy; Hysterectomy; Cholecystectomy; Tubal ligation; - Social history: Smoking status: Patient uses tobacco products, current every day smoker. Patient is speech impaired. - Family history: Not pertinent. - : The pt / caregiver states he / she is on anticoagulants: Plavix. Home medication list is obtained from the patient. - Exposure Risk Screening:: None identified. Screenin:02 Screening information is obtained from the patient. Fall risk: No risks identified. mlb1 Assistance ADL's: requires no assistance with activities of daily living. Abuse/DV Screen: The patient / caregiver reports he/she is: not in a situation that causes fear, pain or injury. Nutritional screening: No deficits noted. Advance Directives: Currently, there is no health care proxy. home support is adequate. Assessment: 13:01 General: Appears in no apparent distress, comfortable, Behavior is appropriate for age, mlb1 cooperative. Pain: Location: right scapular area Pain currently is 5 out of 10 on a pain scale. Cardiovascular: No deficits noted. Respiratory: Airway is patent Respiratory effort is even, unlabored, Breath sounds are clear bilaterally. Vital Signs: 12:19 BP 158 / 93; Pulse 79; Resp 20; Temp 98.2(O); Pulse Ox 95% on R/A; Weight 131.54 kg lr2 (R); Height 5 ft. 11 in. (180.34 cm) (R); 13:02 BP 135 / 81; Pulse 86; Resp 20; Temp 97.7(T); Pulse Ox 90% on R/A; Pain 5/10; ar3 12:19 Body Mass Index 40.45 (131.54 kg, 180.34 cm) lr2 Vitals: 12:19 Log In Time: September 16, 2016 at 12:18. lr2 ED Course: 12:19 Patient visited by Luisa Lucas. lr2 12:19 Patient moved to Waiting lr2 12:20 Patient moved to Pre RCE lr2 12:22 Triage Initiated ttb 12:29 Jerardo Melendez PA-C is PHCP. cc10 12:29 Nasim Owusu MD is Attending Physician. cc10 12:29 Patient moved to Triage 2 ttb 12:30 Patient visited by Jerardo Melendez PA-C. cc10 12:30 Patient visited by Jerardo Melendez PA-C. cc10 12:33 Patient moved to PR2 / 26 ms18 13:02 No IV's were initiated during this patient's visit. No procedures done that require mlb1 assistance. 13:03 Patient visited by Naa Teresa PCA. ar3 13:03 Patient visited by Melquiades Meadows RN. mlb1 13:03 The patient / caregiver is instructed regarding the plan of care and ED course. mlb1 13:04 Chest, 2 View (pa\\E\\lat) Returned. EDMS 13:07 [facility] [place] Agreement was scanned into [employer] and attached to record. jp5 Administered Medications: 12:45 Drug: Albuterol-Ipratropium 3 ml [ipratropium-albuterol 0.5 mg-3 mg(2.5 mg base)/3 mL lb nebulization soln (3 mL)] Route: Inhalation; RT: 12:45 Initial Med Neb Given as ordered Patient was instructed and evaluated on procedure. lb Respiratory: Breath sounds are diminished bilaterally. Order Results: Radiology Order: Chest, 2 View (pa\\E\\lat) Test: Chest, 2 View (pa\\E\\lat) REASON FOR EXAMINATION: Cough; Clinical: Cough .; ; Comparison: 07/30/2016 .; ; Technique: PA and lateral.; ; Findings:; The mediastinum and cardiac silhouette are normal. The lung mercedes are clear and; without acute consolidation, effusion, or pneumothorax. The skeletal structures; are intact and normal.; ; Impression:; 1. No acute cardiopulmonary process.; ; ; Signed by; Micha Maldonado MD 09/16/2016 12:50 P; Outcome: 12:56 Discharge ordered by Provider. cc10 13:02 Discharge Assessment: Patient awake, alert and oriented x 3. No cognitive and/or mlb1 functional deficits noted. Patient verbalized understanding of disposition instructions. patient administered narcotics - no. The following High Risk Discharge criteria are identified: None. Discharged to home ambulatory, with family. Condition: good. Discharge instructions given to patient, Instructed on discharge instructions, follow up and referral plans. medication usage, Demonstrated understanding of instructions, medications, Pt was receptive of discharge instructions/ teaching. Prescriptions given X 1. No special radiology studies were completed. Property sent home with patient. 13:06 Patient left the ED. mlb1 Signatures: Dispatcher [employer] EDMS Sadie Welsh Michael B, RN RN mlb1 Naa Teresa, PIPELINE OPERATOR PIPELINE OPERATOR ar3 Celeste Valentine RN RN ttb Jerardo Melendez, PA-C PA-C cc10 Yumiko Kline,DOROTHY DE LA CRUZ ms18 Karina Centeno jp5 Luisa Lucas2 MTDD
--- NOTE | 2016-09-16 13:07 | EDDOCDS ---
Physician Documentation [facility] Name: Kathy Bradshaw Age: 36 yrs Sex: Female : 1980 Arrival Date: 09/16/2016 Time: 12:18 Bed Private MD: Disposition: 09/16/16 12:56 Discharged to Home/Self Care. Impression: Acute bronchitis, Viral infection, unspecified. - Condition is Stable. - Discharge Instructions: Acute Bronchitis, Viral Infections. - Prescriptions for Prednisone 20 mg Oral Tablet - take 1 tablet by ORAL route once daily for 5 days; 5 tablet. - Medication Reconciliation form. - Follow up: Private Physician; When: 1 - 2 days; Reason: Wound/Symptom Recheck, Recheck today's complaints, Worsening of conditions, Continuance of care. - Problem is an ongoing problem. - Symptoms have improved. Historical: - Allergies: Avelox (Hives); SULFA (SULFONAMIDES) (Hives); - Home Meds: 1. Zoloft 100 mg Oral tab 2 tabs once daily 2. Abilify 5 mg Oral tab 1 tab once daily (Last dose: 09/16/2016 08:00) 3. Lamictal 25 mg Oral tab daily (Last dose: 09/16/2016 08:00) 4. albuterol sulfate 0.63 mg/3 mL Inhl nebu as needed. (Last dose: 09/14/2016) 5. aspirin 81 mg Oral TbEC 1 tab once daily (Last dose: 09/16/2016 08:00) 6. Flonase 50 mcg/actuation Nasal spsn 1 spray as needed (Last dose: 09/16/2016 08:00) 7. levothyroxine 175 mcg Oral tab 1 tab once daily (Last dose: 09/16/2016 08:00) 8. Lipitor 80 mg Oral tab 1 tab once daily (Last dose: 09/15/2016) 9. metformin 1,000 mg Oral tab 1 tab 2 times per day 10. omeprazole 40 mg Oral cpDR 1 cap once daily (Last dose: 09/16/2016 07:00) 11. Plavix 75 mg Oral tab 1 tab once daily (Last dose: 09/16/2016 08:00) 12. Tricor 145 mg Oral tab 1 tab once daily (Last dose: 09/15/2016) 13. Tylenol 325 mg Oral tab 2 tabs PRN 14. acetaminophen-codeine 300-30 mg oral tab 1 tab every 4 hours (Last dose: 09/16/2016 06:30) 15. pregabalin 100 mg oral cap 1 cap 2 times per day (Last dose: 09/16/2016 08:00) 16. aglyptan for diabetes 25 mg daily (Last dose: 09/15/2016 22:00) - PMHx: Stroke; Hypothyroidism; Hypercholesterolemia; GERD; Diabetes - NIDDM: controlled; cancer-larynx; - PSHx: Tracheostomy; Hysterectomy; Cholecystectomy; Tubal ligation; - Social history: Smoking status: Patient uses tobacco products, current every day smoker. Patient is speech impaired. - Family history: Not pertinent. - : The pt / caregiver states he / she is on anticoagulants: Plavix. Home medication list is obtained from the patient. - Exposure Risk Screening:: None identified. 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 11 in. (180.34 cm) (R); 13:02 BP 135 / 81; Pulse 86; Resp 20; Temp 97.7(T); Pulse Ox 90% on R/A; Pain 5/10; ar3 12:19 Body Mass Index 40.45 (131.54 kg, 180.34 cm) lr2 MDM: 12:34 Albuterol-Ipratropium 3 ml Inhalation once ordered. cc10 12:34 Call Respiratory ordered. cc10 12:34 Call Respiratory complete. ms18 12:34 Chest, 2 View (pa\E\lat) Ordered. EDMS 13:07 [facility] Payment Agreement was scanned into [employer] and attached to record. jp5 13:07 Financial registration complete. jp5 Administered Medications: 12:45 Drug: Albuterol-Ipratropium 3 ml [ipratropium-albuterol 0.5 mg-3 mg(2.5 mg base)/3 mL lb nebulization soln (3 mL)] Route: Inhalation; Signatures: Dispatcher MedHoMelquiades Mayers RN RN mlb1 Celeste Valentine RN RN ttb Jerardo Melendez PA-C PA-C cc10 Yumiko KlineRN RN ms18 Karina Centeno jp5 Sadie Welsh The chart was reviewed and I authenticate all verbal orders and agree with the evaluation and treatment provided.Attachments: 13:07 [facility] Payment Agreement jp5 MTDD
--- NOTE | 2016-09-18 14:08 | EDDOCDS ---
Physician Documentation [facility] Name: Kathy Bradshaw Age: 36 yrs Sex: Female : 1980 Arrival Date: 09/16/2016 Time: 12:18 Bed Private MD: Disposition: 09/16/16 12:56 Discharged to Home/Self Care. Impression: Acute bronchitis, Viral infection, unspecified. - Condition is Stable. - Discharge Instructions: Acute Bronchitis, Viral Infections. - Prescriptions for Prednisone 20 mg Oral Tablet - take 1 tablet by ORAL route once daily for 5 days; 5 tablet. - Medication Reconciliation form. - Follow up: Private Physician; When: 1 - 2 days; Reason: Wound/Symptom Recheck, Recheck today's complaints, Worsening of conditions, Continuance of care. - Problem is an ongoing problem. - Symptoms have improved. Historical: - Allergies: Avelox (Hives); SULFA (SULFONAMIDES) (Hives); - Home Meds: 1. Zoloft 100 mg Oral tab 2 tabs once daily 2. Abilify 5 mg Oral tab 1 tab once daily (Last dose: 09/16/2016 08:00) 3. Lamictal 25 mg Oral tab daily (Last dose: 09/16/2016 08:00) 4. albuterol sulfate 0.63 mg/3 mL Inhl nebu as needed. (Last dose: 09/14/2016) 5. aspirin 81 mg Oral TbEC 1 tab once daily (Last dose: 09/16/2016 08:00) 6. Flonase 50 mcg/actuation Nasal spsn 1 spray as needed (Last dose: 09/16/2016 08:00) 7. levothyroxine 175 mcg Oral tab 1 tab once daily (Last dose: 09/16/2016 08:00) 8. Lipitor 80 mg Oral tab 1 tab once daily (Last dose: 09/15/2016) 9. metformin 1,000 mg Oral tab 1 tab 2 times per day 10. omeprazole 40 mg Oral cpDR 1 cap once daily (Last dose: 09/16/2016 07:00) 11. Plavix 75 mg Oral tab 1 tab once daily (Last dose: 09/16/2016 08:00) 12. Tricor 145 mg Oral tab 1 tab once daily (Last dose: 09/15/2016) 13. Tylenol 325 mg Oral tab 2 tabs PRN 14. acetaminophen-codeine 300-30 mg oral tab 1 tab every 4 hours (Last dose: 09/16/2016 06:30) 15. pregabalin 100 mg oral cap 1 cap 2 times per day (Last dose: 09/16/2016 08:00) 16. aglyptan for diabetes 25 mg daily (Last dose: 09/15/2016 22:00) - PMHx: Stroke; Hypothyroidism; Hypercholesterolemia; GERD; Diabetes - NIDDM: controlled; cancer-larynx; - PSHx: Tracheostomy; Hysterectomy; Cholecystectomy; Tubal ligation; - Social history: Smoking status: Patient uses tobacco products, current every day smoker. Patient is speech impaired. - Family history: Not pertinent. - : The pt / caregiver states he / she is on anticoagulants: Plavix. Home medication list is obtained from the patient. - Exposure Risk Screening:: None identified. 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 11 in. (180.34 cm) (R); 13:02 BP 135 / 81; Pulse 86; Resp 20; Temp 97.7(T); Pulse Ox 90% on R/A; Pain 5/10; ar3 12:19 Body Mass Index 40.45 (131.54 kg, 180.34 cm) lr2 MDM: 12:34 Albuterol-Ipratropium 3 ml Inhalation once ordered. cc10 12:34 Call Respiratory ordered. cc10 12:34 Call Respiratory complete. ms18 12:34 Chest, 2 View (pa\E\lat) Ordered. EDMS 13:07 [facility] Payment Agreement was scanned into [employer] and attached to record. jp5 13:07 Financial registration complete. jp5 09/17 09:58 T-Sheet-- Draft Copy was scanned into [employer] and attached to record. gb Administered Medications: 09/16 12:45 Drug: Albuterol-Ipratropium 3 ml [ipratropium-albuterol 0.5 mg-3 mg(2.5 mg base)/3 mL lb nebulization soln (3 mL)] Route: Inhalation; Signatures: Dispatcher [employer] EDMS Tran Rojas, Reg Reg gb Melquiades Meadows RN RN mlb1 Celeste Valentine RN RN ttb Jerardo Melendez PABryC PATino cc10 Yumiko Kline RN RN ms18 Karina Centeno jp5 Sadie Welsh The chart was reviewed and I authenticate all verbal orders and agree with the evaluation and treatment provided.Attachments: 13:07 [facility] Payment Agreement jp5 09/17 09:58 T-Sheet-- Draft Copy gb Chart Complete MTDD
--- NOTE | 2016-09-18 14:08 | EDDOCDS ---
Physician Documentation [facility] Name: Kathy Bradshaw Age: 36 yrs Sex: Female : 1980 Arrival Date: 09/16/2016 Time: 12:18 Bed Private MD: Disposition: 09/16/16 12:56 Discharged to Home/Self Care. Impression: Acute bronchitis, Viral infection, unspecified. - Condition is Stable. - Discharge Instructions: Acute Bronchitis, Viral Infections. - Prescriptions for Prednisone 20 mg Oral Tablet - take 1 tablet by ORAL route once daily for 5 days; 5 tablet. - Medication Reconciliation form. - Follow up: Private Physician; When: 1 - 2 days; Reason: Wound/Symptom Recheck, Recheck today's complaints, Worsening of conditions, Continuance of care. - Problem is an ongoing problem. - Symptoms have improved. Historical: - Allergies: Avelox (Hives); SULFA (SULFONAMIDES) (Hives); - Home Meds: 1. Zoloft 100 mg Oral tab 2 tabs once daily 2. Abilify 5 mg Oral tab 1 tab once daily (Last dose: 09/16/2016 08:00) 3. Lamictal 25 mg Oral tab daily (Last dose: 09/16/2016 08:00) 4. albuterol sulfate 0.63 mg/3 mL Inhl nebu as needed. (Last dose: 09/14/2016) 5. aspirin 81 mg Oral TbEC 1 tab once daily (Last dose: 09/16/2016 08:00) 6. Flonase 50 mcg/actuation Nasal spsn 1 spray as needed (Last dose: 09/16/2016 08:00) 7. levothyroxine 175 mcg Oral tab 1 tab once daily (Last dose: 09/16/2016 08:00) 8. Lipitor 80 mg Oral tab 1 tab once daily (Last dose: 09/15/2016) 9. metformin 1,000 mg Oral tab 1 tab 2 times per day 10. omeprazole 40 mg Oral cpDR 1 cap once daily (Last dose: 09/16/2016 07:00) 11. Plavix 75 mg Oral tab 1 tab once daily (Last dose: 09/16/2016 08:00) 12. Tricor 145 mg Oral tab 1 tab once daily (Last dose: 09/15/2016) 13. Tylenol 325 mg Oral tab 2 tabs PRN 14. acetaminophen-codeine 300-30 mg oral tab 1 tab every 4 hours (Last dose: 09/16/2016 06:30) 15. pregabalin 100 mg oral cap 1 cap 2 times per day (Last dose: 09/16/2016 08:00) 16. aglyptan for diabetes 25 mg daily (Last dose: 09/15/2016 22:00) - PMHx: Stroke; Hypothyroidism; Hypercholesterolemia; GERD; Diabetes - NIDDM: controlled; cancer-larynx; - PSHx: Tracheostomy; Hysterectomy; Cholecystectomy; Tubal ligation; - Social history: Smoking status: Patient uses tobacco products, current every day smoker. Patient is speech impaired. - Family history: Not pertinent. - : The pt / caregiver states he / she is on anticoagulants: Plavix. Home medication list is obtained from the patient. - Exposure Risk Screening:: None identified. 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 11 in. (180.34 cm) (R); 13:02 BP 135 / 81; Pulse 86; Resp 20; Temp 97.7(T); Pulse Ox 90% on R/A; Pain 5/10; ar3 12:19 Body Mass Index 40.45 (131.54 kg, 180.34 cm) lr2 MDM: 12:34 Albuterol-Ipratropium 3 ml Inhalation once ordered. cc10 12:34 Call Respiratory ordered. cc10 12:34 Call Respiratory complete. ms18 12:34 Chest, 2 View (pa\E\lat) Ordered. EDMS 13:07 [facility] Payment Agreement was scanned into [employer] and attached to record. jp5 13:07 Financial registration complete. jp5 09/17 09:58 T-Sheet-- Draft Copy was scanned into [employer] and attached to record. gb Administered Medications: 09/16 12:45 Drug: Albuterol-Ipratropium 3 ml [ipratropium-albuterol 0.5 mg-3 mg(2.5 mg base)/3 mL lb nebulization soln (3 mL)] Route: Inhalation; Signatures: Dispatcher [employer] EDMS Tran Rojas, Reg Reg gb Melquiades Meadows RN RN mlb1 Celeste Valentine RN RN ttb Jerardo Mleendez PABryC PATino cc10 Yumiko Kline RN RN ms18 Karina Centeno jp5 Sadie Welsh The chart was reviewed and I authenticate all verbal orders and agree with the evaluation and treatment provided.Attachments: 13:07 [facility] Payment Agreement jp5 09/17 09:58 T-Sheet-- Draft Copy gb Chart Complete MTDD
--- NOTE | 2016-09-18 14:08 | EDDOCDS ---
Nurse's Notes [facility] Name: Kathy Bradshaw Age: 36 yrs Sex: Female : 1980 Arrival Date: 09/16/2016 Time: 12:18 Bed PR Private MD: Diagnosis: Acute bronchitis;Viral infection, unspecified Presentation: 09/16 12:21 Presenting complaint: Patient states: Right sided "lung pain" that hurts when she ttb breathes. Slight cough. Denies fevers. Pt states the thinks she has "pneumonia". Adult Sepsis Screening: The patient does not have new or worsening altered mentation. Patient's respiratory rate is less than 22. Systolic blood pressure is greater than 100. Patient has a qSOFA score of 0- Negative Sepsis Screen. Suicide/Homicide risk assessment- the patient denies having any suicidal and/or homicidal ideations and does not present with any other emotional, behavioral or mental health complaints. Status: Patient is not a business services officer or dependent. Transition of care: patient was not received from another setting of care. 12:21 Acuity: DESTIN Level 3 ttb 12:21 Method Of Arrival: Walkin/Carried/Asstd ttb Triage Assessment: 12:26 General: Appears in no apparent distress, well nourished, Behavior is appropriate for ttb age, cooperative, pleasant. Pain: Location: right lung. HIV screening NA for this visit Offered previously. Neurological: Level of Consciousness is awake, alert. Cardiovascular: Chest pain is denied. Respiratory: Onset: The symptoms/episode began/occurred gradually, Airway is patent Respiratory effort is even, unlabored, Respiratory pattern is regular, symmetrical, trach site noted. Derm: Skin is normal. GENERAL SUPERVISOR: 12:26 LMP N/A - Hysterectomy ttb Historical: - Allergies: Avelox (Hives); SULFA (SULFONAMIDES) (Hives); - Home Meds: 1. Zoloft 100 mg Oral tab 2 tabs once daily 2. Abilify 5 mg Oral tab 1 tab once daily (Last dose: 09/16/2016 08:00) 3. Lamictal 25 mg Oral tab daily (Last dose: 09/16/2016 08:00) 4. albuterol sulfate 0.63 mg/3 mL Inhl nebu as needed. (Last dose: 09/14/2016) 5. aspirin 81 mg Oral TbEC 1 tab once daily (Last dose: 09/16/2016 08:00) 6. Flonase 50 mcg/actuation Nasal spsn 1 spray as needed (Last dose: 09/16/2016 08:00) 7. levothyroxine 175 mcg Oral tab 1 tab once daily (Last dose: 09/16/2016 08:00) 8. Lipitor 80 mg Oral tab 1 tab once daily (Last dose: 09/15/2016) 9. metformin 1,000 mg Oral tab 1 tab 2 times per day 10. omeprazole 40 mg Oral cpDR 1 cap once daily (Last dose: 09/16/2016 07:00) 11. Plavix 75 mg Oral tab 1 tab once daily (Last dose: 09/16/2016 08:00) 12. Tricor 145 mg Oral tab 1 tab once daily (Last dose: 09/15/2016) 13. Tylenol 325 mg Oral tab 2 tabs PRN 14. acetaminophen-codeine 300-30 mg oral tab 1 tab every 4 hours (Last dose: 09/16/2016 06:30) 15. pregabalin 100 mg oral cap 1 cap 2 times per day (Last dose: 09/16/2016 08:00) 16. aglyptan for diabetes 25 mg daily (Last dose: 09/15/2016 22:00) - PMHx: Stroke; Hypothyroidism; Hypercholesterolemia; GERD; Diabetes - NIDDM: controlled; cancer-larynx; - PSHx: Tracheostomy; Hysterectomy; Cholecystectomy; Tubal ligation; - Social history: Smoking status: Patient uses tobacco products, current every day smoker. Patient is speech impaired. - Family history: Not pertinent. - : The pt / caregiver states he / she is on anticoagulants: Plavix. Home medication list is obtained from the patient. - Exposure Risk Screening:: None identified. Screenin:02 Screening information is obtained from the patient. Fall risk: No risks identified. mlb1 Assistance ADL's: requires no assistance with activities of daily living. Abuse/DV Screen: The patient / caregiver reports he/she is: not in a situation that causes fear, pain or injury. Nutritional screening: No deficits noted. Advance Directives: Currently, there is no health care proxy. home support is adequate. Assessment: 13:01 General: Appears in no apparent distress, comfortable, Behavior is appropriate for age, mlb1 cooperative. Pain: Location: right scapular area Pain currently is 5 out of 10 on a pain scale. Cardiovascular: No deficits noted. Respiratory: Airway is patent Respiratory effort is even, unlabored, Breath sounds are clear bilaterally. Vital Signs: 12:19 BP 158 / 93; Pulse 79; Resp 20; Temp 98.2(O); Pulse Ox 95% on R/A; Weight 131.54 kg lr2 (R); Height 5 ft. 11 in. (180.34 cm) (R); 13:02 BP 135 / 81; Pulse 86; Resp 20; Temp 97.7(T); Pulse Ox 90% on R/A; Pain 5/10; ar3 12:19 Body Mass Index 40.45 (131.54 kg, 180.34 cm) lr2 Vitals: 12:19 Log In Time: September 16, 2016 at 12:18. lr2 ED Course: 12:19 Patient visited by Luisa Lucas. lr2 12:19 Patient moved to Waiting lr2 12:20 Patient moved to Pre RCE lr2 12:22 Triage Initiated ttb 12:29 Jerardo Melendez PA-C is PHCP. cc10 12:29 Nasim Owusu MD is Attending Physician. cc10 12:29 Patient moved to Triage 2 ttb 12:30 Patient visited by Jerardo Melendez PA-C. cc10 12:30 Patient visited by Jerardo Melendez PA-C. cc10 12:33 Patient moved to PR2 / ms18 13:02 No IV's were initiated during this patient's visit. No procedures done that require mlb1 assistance. 13:03 Patient visited by Naa Teresa PCA. ar3 13:03 Patient visited by Melquiades Meadows RN. mlb1 13:03 The patient / caregiver is instructed regarding the plan of care and ED course. mlb1 13:04 Chest, 2 View (pa\\E\\lat) Returned. EDMS 13:07 [facility] Payment Agreement was scanned into [email or web address] and attached to record. jp5 09/17 09:58 T-Sheet-- Draft Copy was scanned into [email or web address] and attached to record. gb Administered Medications: 09/16 12:45 Drug: Albuterol-Ipratropium 3 ml [ipratropium-albuterol 0.5 mg-3 mg(2.5 mg base)/3 mL lb nebulization soln (3 mL)] Route: Inhalation; RT: 12:45 Initial Med Neb Given as ordered Patient was instructed and evaluated on procedure. lb Respiratory: Breath sounds are diminished bilaterally. Order Results: Radiology Order: Chest, 2 View (pa\\E\\lat) Test: Chest, 2 View (pa\\E\\lat) REASON FOR EXAMINATION: Cough; Clinical: Cough .; ; Comparison: 07/30/2016 .; ; Technique: PA and lateral.; ; Findings:; The mediastinum and cardiac silhouette are normal. The lung mercedes are clear and; without acute consolidation, effusion, or pneumothorax. The skeletal structures; are intact and normal.; ; Impression:; 1. No acute cardiopulmonary process.; ; ; Signed by; Micha Maldonado MD 09/16/2016 12:50 P; Outcome: 12:56 Discharge ordered by Provider. cc10 13:02 Discharge Assessment: Patient awake, alert and oriented x 3. No cognitive and/or mlb1 functional deficits noted. Patient verbalized understanding of disposition instructions. patient administered narcotics - no. The following High Risk Discharge criteria are identified: None. Discharged to home ambulatory, with family. Condition: good. Discharge instructions given to patient, Instructed on discharge instructions, follow up and referral plans. medication usage, Demonstrated understanding of instructions, medications, Pt was receptive of discharge instructions/ teaching. Prescriptions given X 1. No special radiology studies were completed. Property sent home with patient. 13:06 Patient left the ED. mlb1 Signatures: Dispatcher [employer] EDMS Tran Rojsa, Reg Reg Sadie Garza Michael B, RN RN mlb1 Naa Teresa, LITERACY COACH LITERACY COACH ar3 Celeste Valentine, RN RN janessab Jerardo Melendez, PA-C PA-C cc10 Yumiko Kline,DOROTHY RN ms18 Karina Centeno jp5 Luisa Lucas2 Chart Complete MTDD
== END 2016-09-16 13:06 | disposition home or self-care (01) ==
LOC: M ED 12:18
DX: J44.0 Chronic obstructive pulmonary disease with (acute) lower respiratory infection (principal); E11.9 Type 2 diabetes mellitus without complications; E03.9 Hypothyroidism, unspecified; E78.00 Pure hypercholesterolemia, unspecified; K21.9 Gastro-esophageal reflux disease without esophagitis; Z86.73 Personal history of transient ischemic attack (TIA), and cerebral infarction without residual deficits; Z85.21 Personal history of malignant neoplasm of larynx; Z79.899 Other long term (current) drug therapy; Z79.82 Long term (current) use of aspirin; Z79.84 Long term (current) use of oral hypoglycemic drugs; Z79.01 Long term (current) use of anticoagulants; Z88.1 Allergy status to other antibiotic agents; Z88.2 Allergy status to sulfonamides; F17.210 Nicotine dependence, cigarettes, uncomplicated

== ENCOUNTER 2016-10-29 20:31 | Emergency (ER) | payer OTHER ==
[~2016-10-29] VITALS: Ht 180.3 cm; Wt 127.0 kg
[~2016-10-29 20:31] MED LIST changes: +GABA-282 PO; -GABA300C3 PO
[2016-10-29 20:32] VITALS: BP 137/93
--- NOTE | 2016-10-30 06:15 | ECGEPIP ---
Stationary ECG Study [facility] - ED Test Date: 2016-10-29 Pat Name: ESSENCE AGUERO Department: Room: - Gender: F Subgrade Tester: nilay : 1980 Requested By: MARBELLA Ruiz Order Number: [id number] Reading MD: Gómez Alfred Measurements Intervals [place] Rate: 82 P: 68 UT: 165 QRS: -42 QRSD: 99 T: 41 QT: 370 QTc: 435 Interpretive Statements SINUS RHYTHM POSSIBLE LEFT ATRIAL ENLARGEMENT LEFT AXIS DEVIATION INCOMPLETE RIGHT BUNDLE BRANCH BLOCK PRWP SIMILAR TO 04/14/16 Electronically Signed On 10-30-2016 6:14:50 EDT by Gómez Alfred
== END 2016-10-29 21:38 | disposition left against medical advice (07) ==
LOC: M ED 20:48
DX: R07.9 Chest pain, unspecified (principal); Z53.21 Procedure and treatment not carried out due to patient leaving prior to being seen by health care provider

== ENCOUNTER 2016-10-31 09:11 | Emergency (ER) | payer OTHER ==
[~2016-10-31] VITALS: Ht 180.3 cm; Wt 127.0 kg
--- NOTE | 2016-10-31 10:48 | REP ---
LEFT HAND SERIES, COMPLETE: 10/31/2016 CLINICAL HISTORY: Trauma, pain at 2nd MCP joint, palmar aspect. FINDINGS: There are no prior studies. The carpal bones, metacarpals and phalanges are without fracture or focal lesion. Distal radius and ulna intact. Some minor soft tissue swelling dorsal aspect of the hand. No erosive changes or avulsion. IMPRESSION: 1. Minor soft tissue swelling but no visible fracture. Signed by Ryley Jain MD 10/31/2016 03:30 P
[2016-10-31] MEDS ORDERED: KEFL500C7 PO (11:31)
[2016-10-31] MEDS ORDERED: INDO50CA PO (11:31)
[2016-10-31 11:37] VITALS: BP 113/76
== END 2016-10-31 11:39 | disposition home or self-care (01) ==
LOC: M ED 10:05
DX: M25.542 Pain in joints of left hand (principal)

== ENCOUNTER 2017-06-28 14:41 | Emergency (ER) | payer MEDICAID, OTHER ==
[~2017-06-28] VITALS: Ht 180.3 cm; Wt 127.3 kg
[~2017-06-28 14:41] MED LIST changes: +ASPI1TAB15 PO; -ATOR1TAB18 PO; +ATOR80TA59 PO; +AZIT500T2 PO; +CEFD1CAP8 PO; +CLOP75TA2 PO; +FENO145T PO; +IBUP1TAB7 PO; -IBUP800T23 PO; +INDO50CA PO; +KEFL500C17 PO; +LEVO200T4 PO; -METF1000 PO; +METF10004 PO; -METH-107 PO; +METH1TAB40 PO; +OMEP40CA2 PO; +PREG100CA PO; +SERT-138 PO; +TRAZ50TA11 PO; -TRAZ50TA4 PO
[2017-06-28 14:42] VITALS: BP 172/111
[2017-06-28] MEDS ORDERED: HYDR12.55 PO ×2 (14:53→16:42)
[2017-06-28] MEDS ORDERED: GABA-282 PO (14:53)
[2017-06-28] MEDS ORDERED: METF10004 PO (16:42)
[2017-06-28] MEDS ORDERED: VENTAER INH (16:42)
[2017-06-28] MEDS ORDERED: ASPI1TAB PO (16:42)
[2017-06-28] MEDS ORDERED: OMEP40CA2 PO (16:42)
[2017-06-28] MEDS ORDERED: LEVO200T4 PO (16:42)
[2017-06-28] MEDS ORDERED: DOXY100C37 PO (16:43)
== END 2017-06-28 16:56 | disposition home or self-care (01) ==
LOC: M ED 14:41
DX: Z76.0 Encounter for issue of repeat prescription (principal); N61.0 Mastitis without abscess; E11.9 Type 2 diabetes mellitus without complications; I10 Essential (primary) hypertension; E03.9 Hypothyroidism, unspecified; E78.5 Hyperlipidemia, unspecified; F41.9 Anxiety disorder, unspecified; F33.9 Major depressive disorder, recurrent, unspecified; F42.9 Obsessive-compulsive disorder, unspecified; Z86.14 Personal history of Methicillin resistant Staphylococcus aureus infection; Z86.73 Personal history of transient ischemic attack (TIA), and cerebral infarction without residual deficits; Z87.19 Personal history of other diseases of the digestive system; Z85.818 Personal history of malignant neoplasm of other sites of lip, oral cavity, and pharynx; Z79.899 Other long term (current) drug therapy; Z79.82 Long term (current) use of aspirin; Z79.84 Long term (current) use of oral hypoglycemic drugs; Z88.1 Allergy status to other antibiotic agents; Z88.2 Allergy status to sulfonamides; Z88.8 Allergy status to other drugs, medicaments and biological substances; Z87.891 Personal history of nicotine dependence

== ENCOUNTER 2017-09-02 05:32 | Emergency (ER) | payer OTHER | END 2017-09-02 09:27 | disposition home or self-care (01) | LOC: M ED 05:32 | DX: G44.009 Cluster headache syndrome, unspecified, not intractable (principal); I10 Essential (primary) hypertension; Z79.899 Other long term (current) drug therapy; Z79.890 Hormone replacement therapy; Z79.84 Long term (current) use of oral hypoglycemic drugs; Z79.82 Long term (current) use of aspirin; Z88.1 Allergy status to other antibiotic agents; Z88.2 Allergy status to sulfonamides; Z88.8 Allergy status to other drugs, medicaments and biological substances; Z87.891 Personal history of nicotine dependence | CPT/HCPCS: 99284 ==

== ENCOUNTER 2017-10-02 19:24 | Emergency (ER) | payer OTHER ==
[2017-10-02 20:32] LABS: BASO # 0.1 10^3/uL (0.0-0.2); BASO % 0.6 % (0.0-1.0); EOS # 0.2 10^3/uL (0.0-0.50); EOS % 1.6 % (0.0-3.0); HEMATOCRIT 53.7 % (36.0-47.0); HEMOGLOBIN 17.9 g/dl (12.0-16.0); IMMATURE GRANULOCYTE % 0.6 % (0-3.0); LYMPH # 4.1 10^3/uL (1.5-4.5); LYMPH % 39.5 % (24.0-44.0); MEAN CORPUSCULAR HEMOGLOBIN 29.6 pg (27.0-33.0); MEAN CORPUSCULAR HGB CONC 33.3 g/dl (32.0-36.5); MEAN CORPUSCULAR VOLUME 88.8 fl (80.0-96.0); MONO # 0.7 10^3/uL (0.0-0.8); MONO % 6.8 % (0.0-5.0); NEUTROPHILS # 5.3 10^3/uL (1.8-7.7); NEUTROPHILS % 50.9 % (36.0-66.0); PLATELET COUNT, AUTOMATED 342 10^3/uL (150-450); RED BLOOD COUNT 6.05 10^6/uL (4.00-5.40); RED CELL DISTRIBUTION WIDTH 13.4 % (11.5-14.5); WHITE BLOOD COUNT 10.3 10^3/uL (4.0-10.0)
[2017-10-02] MEDS: diphenhydrAMINE INJ 50MG/ML VIAL (J1200) IV (20:41)
[2017-10-02] MEDS: FAMOTIDINE INJ 20MG/2ML VIAL (S0028) IVP (20:42)
[2017-10-02] MEDS: methylPREDNISolone INJ 125 MG/2 ML VIAL (J2930) IV (20:42)
[2017-10-02 20:46] LABS: ANION GAP 12 MEQ/L (8-16); BLOOD UREA NITROGEN 10 MG/DL (7-18); CALCIUM LEVEL 9.2 MG/DL (8.5-10.1); CARBON DIOXIDE LEVEL 26 MEQ/L (21-32); CHLORIDE LEVEL 94 MEQ/L (98-107); CREATININE FOR GFR 0.75 MG/DL (0.55-1.30); GLOMERULAR FILTRATION RATE > 60.0 (>60); GLUCOSE, FASTING 333 MG/DL (70-100); POTASSIUM SERUM 4.4 MEQ/L (3.5-5.1); SODIUM LEVEL 132 MEQ/L (136-145)
[2017-10-02] MEDS: HumuLIN R (REGULAR) INSULIN (NovoLIN R) **100U/ML** PER UNIT IV (21:41)
[2017-10-02 22:53] LABS: BEDSIDE GLUCOSE 234 MG/DL (70-105)
== END 2017-10-02 23:20 | disposition home or self-care (01) ==
LOC: M ED 19:24
DX: R21 Rash and other nonspecific skin eruption (principal); T36.1X5A Adverse effect of cephalosporins and other beta-lactam antibiotics, initial encounter; E11.9 Type 2 diabetes mellitus without complications; E07.9 Disorder of thyroid, unspecified; F33.9 Major depressive disorder, recurrent, unspecified; K21.9 Gastro-esophageal reflux disease without esophagitis; E78.9 Disorder of lipoprotein metabolism, unspecified; E53.9 Vitamin B deficiency, unspecified; E66.9 Obesity, unspecified; J30.89 Other allergic rhinitis; K44.9 Diaphragmatic hernia without obstruction or gangrene; Z85.21 Personal history of malignant neoplasm of larynx; Z86.73 Personal history of transient ischemic attack (TIA), and cerebral infarction without residual deficits; Z79.899 Other long term (current) drug therapy; Z79.84 Long term (current) use of oral hypoglycemic drugs; Z88.1 Allergy status to other antibiotic agents; Z88.2 Allergy status to sulfonamides; Z88.8 Allergy status to other drugs, medicaments and biological substances; F17.210 Nicotine dependence, cigarettes, uncomplicated
CPT/HCPCS: J1200

== ENCOUNTER 2017-11-06 16:16 | Emergency (ER) | payer OTHER ==
[2017-11-06 19:17] LABS: ANION GAP 9 MEQ/L (8-16); CARBON DIOXIDE LEVEL 26 MEQ/L (21-32); CHLORIDE LEVEL 84 MEQ/L (98-107); CREATININE FOR GFR 1.41 MG/DL (0.55-1.30); GLOMERULAR FILTRATION RATE 44.2 (>60); POTASSIUM SERUM 4.3 MEQ/L (3.5-5.1); SODIUM LEVEL 119 MEQ/L (136-145); TROPONIN I < 0.02 NG/ML (< 0.10)
[2017-11-06 19:28] LABS: CK-MB VALUE MASS < 1.0 NG/ML (<3.6)
[2017-11-06 20:37] LABS: BLOOD UREA NITROGEN 9 MG/DL (7-18); CPK CREATINE PHOSPHOKINASE 161 U/L (26-192); MB/CK RELATIVE INDEX 0.62 (< OR =4)
[2017-11-06 20:39] LABS: GLUCOSE, FASTING 451 MG/DL (70-100)
[2017-11-06 21:11] LABS: HEMOGLOBIN 15.3 g/dl (12.0-15.5); MEAN CORPUSCULAR HEMOGLOBIN 29.3 pg (27.0-33.0); MEAN CORPUSCULAR HGB CONC 34.8 g/dl (32.0-36.5); MEAN CORPUSCULAR VOLUME 84.1 fl (80.0-96.0); PLATELET COUNT, AUTOMATED 279 10^3/uL (150-450); RED BLOOD COUNT 5.23 10^6/uL (4.00-5.40); RED CELL DISTRIBUTION WIDTH 15.6 % (11.5-14.5); SUSPECT SAMPLE POS FLAG; WHITE BLOOD COUNT 8.9 10^3/uL (4.0-10.0)
[2017-11-06 21:12] LABS: ADD MANUAL DIFFER YES; DIFF SLIDE NUMBER 355
[2017-11-06 21:15] LABS: ATYPICAL LYMPH 1 % (0-5); BASOPHILS 2 % (0-4); EOSINOPHILS 3 % (0-5); LYMPHOCYTES 25 % (16-52); MONOCYTES 9 % (0-8); NEUTROPHILS 60 % (35-75); PLATELET ESTIMATE NORMAL (NORMAL)
[2017-11-06] MEDS: HumaLOG INSULIN (NovoLOG) PER UNIT SC (21:29)
[2017-11-06] MEDS: NS 1,000 ML IV (21:29)
[2017-11-06 22:03] LABS: TRIGLYCERIDES LEVEL 9400 MG/DL (<150)
[2017-11-06 22:42] LABS: BEDSIDE GLUCOSE 190 MG/DL (70-105)
== END 2017-11-06 23:06 | disposition home or self-care (01) ==
LOC: M ED 16:16
DX: E11.65 Type 2 diabetes mellitus with hyperglycemia (principal); E87.1 Hypo-osmolality and hyponatremia; R07.1 Chest pain on breathing; E03.9 Hypothyroidism, unspecified; K21.9 Gastro-esophageal reflux disease without esophagitis; K44.9 Diaphragmatic hernia without obstruction or gangrene; Z85.21 Personal history of malignant neoplasm of larynx; Z86.73 Personal history of transient ischemic attack (TIA), and cerebral infarction without residual deficits; Z88.2 Allergy status to sulfonamides; Z88.1 Allergy status to other antibiotic agents; F17.200 Nicotine dependence, unspecified, uncomplicated; Z79.899 Other long term (current) drug therapy; Z79.84 Long term (current) use of oral hypoglycemic drugs
CPT/HCPCS: 71046

== ENCOUNTER 2017-11-08 15:01 | Inpatient (IN) | payer OTHER ==
[2017-11-08] MEDS ORDERED: GLUCAGON FOR INJ 1 MG VIAL (J1610) SC (15:45)
[2017-11-08] MEDS ORDERED: GLUCOSE 4 GM CHEW TABLET PO (15:45)
[2017-11-08] MEDS ORDERED: DEXTROSE 50% 50 ML SYRINGE IV (15:45)
[2017-11-08] MEDS: ALBUTEROL SULFATE 2.5 MG/0.5 ML INH NEB SOLN NEB ×3 (16:13→23:39)
[2017-11-08] MEDS ORDERED: SLF 3 ML SYR IV (16:45)
[2017-11-08 16:56] LABS: BEDSIDE GLUCOSE 189 MG/DL (70-105)
[2017-11-08] MEDS: HumaLOG INSULIN (NovoLOG) PER UNIT SC ×2 (16:57→21:00)
[2017-11-08] MEDS: OMEPRAZOLE 20 MG CAP PO (16:57)
[2017-11-08 17:01] LABS: INR 0.93; PROTHROMBIN TIME 12.5 SECONDS (12.4-14.5)
[2017-11-08 17:12] LABS: ESTIMATED AVERAGE GLUCOSE 240 MG/DL (60-110)
[2017-11-08 17:18] LABS: ANION GAP 8 MEQ/L (8-16); CARBON DIOXIDE LEVEL 26 MEQ/L (21-32); CHLORIDE LEVEL 92 MEQ/L (98-107); CREATININE FOR GFR 0.85 MG/DL (0.55-1.30); GLOMERULAR FILTRATION RATE > 60.0 (>60); GLUCOSE, FASTING 309 MG/DL (70-100); MAGNESIUM LEVEL 1.8 MG/DL (1.8-2.4); POTASSIUM SERUM 4.4 MEQ/L (3.5-5.1); SODIUM LEVEL 126 MEQ/L (136-145)
[2017-11-08] MEDS ORDERED: INFLUENZA QUADRIVALENT PF VACCINE 0.5ML SYRINGE (90686) IM (18:15)
[2017-11-08] MEDS: NICOTINE 21MG/24HR 1 EA TRANSDERMAL TD (18:24)
[2017-11-08] MEDS: BUDESONIDE 0.25 MG/2 ML INHALATION SUSPENSION INH (19:21)
[2017-11-08] MEDS: FORMOTEROL FUMARATE 20 MCG/2 ML INHALATION SOLUTION (PERFOROMIST) NEB (19:21)
[2017-11-08 19:36] LABS: ALBUMIN 3.2 GM/DL (3.2-5.2); ALBUMIN/GLOBULIN RATIO 0.76 (1.00-1.93); ALKALINE PHOSPHATASE 93 U/L (45-117); BLOOD UREA NITROGEN 9 MG/DL (7-18); TOTAL PROTEIN 7.4 GM/DL (6.4-8.2)
[2017-11-08 19:37] LABS: BILIRUBIN,TOTAL 1.4 MG/DL (0.2-1.0)
[2017-11-08 19:56] LABS: CALCIUM LEVEL 8.9 MG/DL (8.5-10.1)
[2017-11-08 20:04] LABS: AST/SGOT 53 U/L (7-37)
[2017-11-08 20:05] LABS: ALT/SGPT 48 U/L (12-78)
[2017-11-08 20:13] LABS: FREE THYROXINE INDEX 1.6 % (1.3-4.8); T UPTAKE 30 % (30-39); THYROXINE (T4) 5.4 UG/DL (4.5-12.0)
[2017-11-08 20:18] LABS: BEDSIDE GLUCOSE 235 MG/DL (70-105)
[2017-11-08] MEDS ORDERED: SYMBICORT 80/4.5MCG INHALER 6GM INH (21:00)
[2017-11-08] MEDS: DOXYCYCLINE HYCLATE 100 MG TAB PO (21:43)
[2017-11-08] MEDS: SLF 3 ML SYR IV (21:43)
[2017-11-08] MEDS: ATORVASTATIN 20 MG TAB PO (21:43)
[2017-11-08] MEDS: ALPRAZolam 0.5 MG TAB PO (21:43)
[2017-11-08] MEDS: GABAPENTIN 300 MG CAP PO (21:43)
[2017-11-08] MEDS: ACETAMINOPHEN TAB 650MG DOSE (2X325MG) PO (23:50)
[2017-11-09] MEDS: ALBUTEROL SULFATE 2.5 MG/0.5 ML INH NEB SOLN NEB ×4 (04:00→15:11)
[2017-11-09 04:35] LABS: HEMATOCRIT 44.7 % (36.0-47.0); HEMOGLOBIN 16.5 g/dl (12.0-15.5); MEAN CORPUSCULAR HEMOGLOBIN 32.9 pg (27.0-33.0); MEAN CORPUSCULAR VOLUME 89.2 fl (80.0-96.0); PLATELET COUNT, AUTOMATED 228 10^3/uL (150-450); RED BLOOD COUNT 5.01 10^6/uL (4.00-5.40); RED CELL DISTRIBUTION WIDTH 14.4 % (11.5-14.5); WHITE BLOOD COUNT 7.8 10^3/uL (4.0-10.0)
[2017-11-09 04:43] LABS: MEAN CORPUSCULAR HGB CONC 36.9 g/dl (32.0-36.5)
[2017-11-09 05:05] LABS: ANION GAP 11 MEQ/L (8-16); BLOOD UREA NITROGEN 11 MG/DL (7-18); CALCIUM LEVEL 8.8 MG/DL (8.5-10.1); CARBON DIOXIDE LEVEL 27 MEQ/L (21-32); CHLORIDE LEVEL 96 MEQ/L (98-107); CREATININE FOR GFR 0.72 MG/DL (0.55-1.30); GLOMERULAR FILTRATION RATE > 60.0 (>60); GLUCOSE, FASTING 292 MG/DL (70-100); MAGNESIUM LEVEL 1.8 MG/DL (1.8-2.4); POTASSIUM SERUM 4.3 MEQ/L (3.5-5.1); SODIUM LEVEL 134 MEQ/L (136-145)
[2017-11-09] MEDS: SLF 3 ML SYR IV (06:03)
[2017-11-09] MEDS: LEVOTHYROXINE 100MCG TABLET (0.1MG) PO (06:03)
[2017-11-09] MEDS: BUDESONIDE 0.25 MG/2 ML INHALATION SUSPENSION INH (07:16)
[2017-11-09] MEDS: FORMOTEROL FUMARATE 20 MCG/2 ML INHALATION SOLUTION (PERFOROMIST) NEB (07:16)
[2017-11-09] MEDS: HumaLOG INSULIN (NovoLOG) PER UNIT SC ×2 (08:40→13:06)
[2017-11-09] MEDS: GABAPENTIN 300 MG CAP PO (08:41)
[2017-11-09] MEDS: ALPRAZolam 0.5 MG TAB PO (08:41)
[2017-11-09] MEDS: NICOTINE 21MG/24HR 1 EA TRANSDERMAL TD (08:41)
[2017-11-09] MEDS: DOXYCYCLINE HYCLATE 100 MG TAB PO (08:41)
[2017-11-09] MEDS: SERTRALINE 100 MG TAB PO (08:41)
[2017-11-09] MEDS ORDERED: predniSONE 20 MG TAB PO (09:00)
[2017-11-09 16:22] LABS: BEDSIDE GLUCOSE 282 MG/DL (70-105)
== END 2017-11-09 15:34 | disposition home or self-care (01) | DRG 252 ==
LOC: M ICU 15:01
DX: K94.39 Other complications of esophagostomy (principal); R04.2 Hemoptysis; E66.01 Morbid (severe) obesity due to excess calories; Z68.41 Body mass index [BMI] 40.0-44.9, adult; E11.9 Type 2 diabetes mellitus without complications; K21.9 Gastro-esophageal reflux disease without esophagitis; E78.00 Pure hypercholesterolemia, unspecified; F17.210 Nicotine dependence, cigarettes, uncomplicated; F12.90 Cannabis use, unspecified, uncomplicated; E03.9 Hypothyroidism, unspecified; Z90.710 Acquired absence of both cervix and uterus; Z98.51 Tubal ligation status; Z90.49 Acquired absence of other specified parts of digestive tract; Z79.84 Long term (current) use of oral hypoglycemic drugs; Z79.82 Long term (current) use of aspirin; Z88.2 Allergy status to sulfonamides; Z88.1 Allergy status to other antibiotic agents; Z90.02 Acquired absence of larynx; Z92.3 Personal history of irradiation; Z85.21 Personal history of malignant neoplasm of larynx; Z86.73 Personal history of transient ischemic attack (TIA), and cerebral infarction without residual deficits; Z79.899 Other long term (current) drug therapy

== ENCOUNTER 2017-11-18 15:03 | Emergency (ER) | payer OTHER ==
[2017-11-18] MEDS: NS 1,000 ML IV ×2 (16:30)
[2017-11-18] MEDS: ONDANSETRON 4MG/2ML VIAL (J2405) IV ×2 (16:30)
[2017-11-18] MEDS: MORPHINE 4 MG/ML 1ML VIAL/SYRINGE (J2270) IV ×4 (16:30→18:30)
[2017-11-18 17:02] LABS: BASO # 0.1 10^3/uL (0.0-0.2); BASO % 0.7 % (0.0-1.0); EOS # 0.3 10^3/uL (0.0-0.50); EOS % 2.6 % (0.0-3.0); HEMATOCRIT 44.8 % (36.0-47.0); HEMOGLOBIN 16.5 g/dl (12.0-15.5); IMMATURE GRANULOCYTE % 0.4 % (0-3.0); LYMPH % 17.8 % (24.0-44.0); MEAN CORPUSCULAR HEMOGLOBIN 31.9 pg (27.0-33.0); MEAN CORPUSCULAR VOLUME 86.7 fl (80.0-96.0); MONO # 0.8 10^3/uL (0.0-0.8); MONO % 7.4 % (0.0-5.0); NEUTROPHILS # 8.1 10^3/uL (1.8-7.7); NEUTROPHILS % 71.1 % (36.0-66.0); PLATELET COUNT, AUTOMATED 223 10^3/uL (150-450); RED BLOOD COUNT 5.17 10^6/uL (4.00-5.40); RED CELL DISTRIBUTION WIDTH 14.6 % (11.5-14.5); WHITE BLOOD COUNT 11.4 10^3/uL (4.0-10.0)
[2017-11-18 17:12] LABS: MEAN CORPUSCULAR HGB CONC 36.8 g/dl (32.0-36.5)
[2017-11-18 17:20] LABS: ANION GAP 10 MEQ/L (8-16); C REACTIVE PROTEIN QUANTITATIV 4.95 MG/DL (0.00-0.30); CARBON DIOXIDE LEVEL 23 MEQ/L (21-32); CHLORIDE LEVEL 92 MEQ/L (98-107); CREATININE FOR GFR 0.62 MG/DL (0.55-1.30); GLOMERULAR FILTRATION RATE > 60.0 (>60); GLUCOSE, FASTING 311 MG/DL (70-100); SODIUM LEVEL 125 MEQ/L (136-145)
[2017-11-18 17:24] LABS: ERYTHROCYTE SEDIMENTATION RATE 4 mm/hr (0-20)
[2017-11-18 17:46] LABS: BLOOD UREA NITROGEN 7 MG/DL (7-18)
[2017-11-18 17:47] LABS: CALCIUM LEVEL 6.9 MG/DL (8.5-10.1)
[2017-11-18 18:10] LABS: LACTIC ACID SEPSIS PROTOCOL 1.2 MMOL/L (0.4-2.0)
[2017-11-18] MEDS: CLINDAMYCIN 600 MG in APPROPRIATE DILUENT 1 EA IV (18:30)
[2017-11-18 21:01] LABS: ANION GAP 5 MEQ/L (8-16); BLOOD UREA NITROGEN 8 MG/DL (7-18); CALCIUM LEVEL 8.2 MG/DL (8.5-10.1); CARBON DIOXIDE LEVEL 27 MEQ/L (21-32); CHLORIDE LEVEL 97 MEQ/L (98-107); CREATININE FOR GFR 0.68 MG/DL (0.55-1.30); GLOMERULAR FILTRATION RATE > 60.0 (>60); GLUCOSE, FASTING 221 MG/DL (70-100); SODIUM LEVEL 129 MEQ/L (136-145)
== END 2017-11-18 22:02 | disposition home or self-care (01) ==
LOC: M ED 15:03
DX: L02.211 Cutaneous abscess of abdominal wall (principal); L03.311 Cellulitis of abdominal wall; E11.9 Type 2 diabetes mellitus without complications; I10 Essential (primary) hypertension; K21.9 Gastro-esophageal reflux disease without esophagitis; F41.9 Anxiety disorder, unspecified; F32.9 Major depressive disorder, single episode, unspecified; Z85.818 Personal history of malignant neoplasm of other sites of lip, oral cavity, and pharynx; F17.200 Nicotine dependence, unspecified, uncomplicated; Z79.84 Long term (current) use of oral hypoglycemic drugs; Z79.899 Other long term (current) drug therapy; Z88.1 Allergy status to other antibiotic agents; Z88.2 Allergy status to sulfonamides; Z88.8 Allergy status to other drugs, medicaments and biological substances
CPT/HCPCS: J2270

== ENCOUNTER 2017-12-06 09:51 | Emergency (ER) | payer OTHER ==
[2017-12-06] MEDS: NORCO, ANEXSIA 5/325MG TABLET (HYDROcodone/ACETAMINOPHEN) PO (11:02)
[2017-12-06] MEDS: BACLOFEN 10 MG TAB PO (11:02)
[2017-12-06] MEDS: IPRATROPIUM 0.5MG/ALBUTEROL 2.5MG INH SOL UD 3ML (DUONEB)(J7620) NEB (11:07)
== END 2017-12-06 11:58 | disposition home or self-care (01) ==
LOC: M ED 09:51
DX: S13.4XXA Sprain of ligaments of cervical spine, initial encounter (principal); X58.XXXA Exposure to other specified factors, initial encounter; Y92.9 Unspecified place or not applicable; Y93.9 Activity, unspecified; Y99.9 Unspecified external cause status; J44.0 Chronic obstructive pulmonary disease with (acute) lower respiratory infection; Z86.73 Personal history of transient ischemic attack (TIA), and cerebral infarction without residual deficits; E11.9 Type 2 diabetes mellitus without complications; I10 Essential (primary) hypertension; E78.5 Hyperlipidemia, unspecified; E03.9 Hypothyroidism, unspecified; G47.30 Sleep apnea, unspecified; F41.9 Anxiety disorder, unspecified; F32.9 Major depressive disorder, single episode, unspecified; F17.200 Nicotine dependence, unspecified, uncomplicated; Z79.84 Long term (current) use of oral hypoglycemic drugs; Z79.899 Other long term (current) drug therapy; Z88.8 Allergy status to other drugs, medicaments and biological substances; Z88.2 Allergy status to sulfonamides; Z88.1 Allergy status to other antibiotic agents
CPT/HCPCS: 71046

== ENCOUNTER 2017-12-17 00:50 | Emergency (ER) | payer OTHER ==
[2017-12-17 02:18] LABS: BASO % 0.4 % (0.0-1.0); EOS # 0.3 10^3/uL (0.0-0.50); EOS % 2.8 % (0.0-3.0); HEMOGLOBIN 14.3 g/dl (12.0-15.5); IMMATURE GRANULOCYTE % 0.3 % (0-3.0); LYMPH # 1.4 10^3/uL (1.5-4.5); LYMPH % 12.5 % (24.0-44.0); MEAN CORPUSCULAR HEMOGLOBIN 30.8 pg (27.0-33.0); MEAN CORPUSCULAR HGB CONC 33.3 g/dl (32.0-36.5); MEAN CORPUSCULAR VOLUME 92.5 fl (80.0-96.0); MONO % 9.2 % (0.0-5.0); NEUTROPHILS # 8.2 10^3/uL (1.8-7.7); NEUTROPHILS % 74.8 % (36.0-66.0); PLATELET COUNT, AUTOMATED 266 10^3/uL (150-450); RED BLOOD COUNT 4.65 10^6/uL (4.00-5.40); RED CELL DISTRIBUTION WIDTH 15.4 % (11.5-14.5); WHITE BLOOD COUNT 10.9 10^3/uL (4.0-10.0)
[2017-12-17] MEDS: IPRATROPIUM 0.5MG/ALBUTEROL 2.5MG INH SOL UD 3ML (DUONEB)(J7620) NEB (02:27)
[2017-12-17 02:32] LABS: ANION GAP 5 MEQ/L (8-16); BLOOD UREA NITROGEN 9 MG/DL (7-18); CARBON DIOXIDE LEVEL 29 MEQ/L (21-32); CHLORIDE LEVEL 102 MEQ/L (98-107); CREATININE FOR GFR 0.62 MG/DL (0.55-1.30); GLOMERULAR FILTRATION RATE > 60.0 (>60); GLUCOSE, FASTING 273 MG/DL (70-100); SODIUM LEVEL 136 MEQ/L (136-145)
[2017-12-17] MEDS: KETOROLAC 30 MG/ML VIAL (J1885) IV (05:15)
[2017-12-17] MEDS: guaiFENesin ER 600 MG TAB PO (05:45)
[2017-12-17] MEDS ORDERED: guaiFENesin ER 600 MG TAB PO (09:00)
== END 2017-12-17 05:54 | disposition home or self-care (01) ==
LOC: M ED 00:50
DX: R05 Cough (principal); Z85.21 Personal history of malignant neoplasm of larynx; Z79.899 Other long term (current) drug therapy; Z88.8 Allergy status to other drugs, medicaments and biological substances; Z88.2 Allergy status to sulfonamides; Z88.1 Allergy status to other antibiotic agents
CPT/HCPCS: J1885

== ENCOUNTER 2017-12-21 06:00 | Inpatient (IN) | payer OTHER ==
[2017-12-21] MEDS ORDERED: ONDANSETRON 4MG/2ML VIAL (J2405) IV (08:15)
[2017-12-21 08:49] LABS: BASO % 0.3 % (0.0-1.0); EOS # 0.1 10^3/uL (0.0-0.50); EOS % 0.8 % (0.0-3.0); HEMATOCRIT 47.5 % (36.0-47.0); HEMOGLOBIN 15.1 g/dl (12.0-15.5); IMMATURE GRANULOCYTE % 0.6 % (0-3.0); LYMPH # 0.7 10^3/uL (1.5-4.5); LYMPH % 5.7 % (24.0-44.0); MEAN CORPUSCULAR HEMOGLOBIN 29.4 pg (27.0-33.0); MEAN CORPUSCULAR HGB CONC 31.8 g/dl (32.0-36.5); MEAN CORPUSCULAR VOLUME 92.6 fl (80.0-96.0); MONO # 0.5 10^3/uL (0.0-0.8); MONO % 4.2 % (0.0-5.0); NEUTROPHILS # 10.2 10^3/uL (1.8-7.7); NEUTROPHILS % 88.4 % (36.0-66.0); PLATELET COUNT, AUTOMATED 288 10^3/uL (150-450); RED BLOOD COUNT 5.13 10^6/uL (4.00-5.40); RED CELL DISTRIBUTION WIDTH 14.6 % (11.5-14.5); WHITE BLOOD COUNT 11.6 10^3/uL (4.0-10.0)
[2017-12-21 09:15] LABS: ALBUMIN 3.7 GM/DL (3.2-5.2); ALBUMIN/GLOBULIN RATIO 0.84 (1.00-1.93); ALKALINE PHOSPHATASE 115 U/L (45-117); ALT/SGPT 31 U/L (12-78); ANION GAP 6 MEQ/L (8-16); AST/SGOT 8 U/L (7-37); BILIRUBIN,TOTAL 0.4 MG/DL (0.2-1.0); BLOOD UREA NITROGEN 7 MG/DL (7-18); C REACTIVE PROTEIN QUANTITATIV 9.57 MG/DL (0.00-0.30); CARBON DIOXIDE LEVEL 29 MEQ/L (21-32); CHLORIDE LEVEL 101 MEQ/L (98-107); GLOMERULAR FILTRATION RATE > 60.0 (>60); GLUCOSE, FASTING 302 MG/DL (70-100); MAGNESIUM LEVEL 2.2 MG/DL (1.8-2.4); POTASSIUM SERUM 4.8 MEQ/L (3.5-5.1); SODIUM LEVEL 136 MEQ/L (136-145); TOTAL PROTEIN 8.1 GM/DL (6.4-8.2)
[2017-12-21] MEDS: NS 1,000 ML IV (10:20)
[2017-12-21] MEDS ORDERED: DEXTROSE 50% 50 ML SYRINGE IV (11:30)
[2017-12-21] MEDS ORDERED: IPRATROPIUM 0.5MG/ALBUTEROL 2.5MG INH SOL UD 3ML (DUONEB)(J7620) NEB (11:30)
[2017-12-21] MEDS ORDERED: GLUCOSE 4 GM CHEW TABLET PO (11:30)
[2017-12-21] MEDS ORDERED: FLUTICASONE PROP 0.05% NASAL SPRAY 16 GM (FLONASE) (11:30)
[2017-12-21] MEDS ORDERED: GLUCAGON FOR INJ 1 MG VIAL (J1610) SC (11:30)
[2017-12-21] MEDS ORDERED: traMADol 50 MG TAB PO (11:30)
[2017-12-21] MEDS: LEVOTHYROXINE 25MCG TABLET (0.025MG) PO (13:27)
[2017-12-21] MEDS: metFORMIN (GLUCOPHAGE) 1000 MG TABLET PO ×2 (13:27→17:06)
[2017-12-21] MEDS: buPROPion **SR TABLET** (ZYBAN) 150MG PO ×2 (13:28→21:13)
[2017-12-21] MEDS: guaiFENesin ER 600 MG TAB PO ×2 (13:28→21:13)
[2017-12-21] MEDS: OMEPRAZOLE 20 MG CAP PO (13:28)
[2017-12-21] MEDS: MELOXICAM (MOBIC) 7.5 MG TAB PO (13:28)
[2017-12-21] MEDS: LEVOTHYROXINE 100MCG TABLET (0.1MG) PO (13:29)
[2017-12-21] MEDS: HumaLOG INSULIN (NovoLOG) PER UNIT SC ×3 (13:38→21:13)
[2017-12-21] MEDS: IPRATROPIUM 0.5MG/ALBUTEROL 2.5MG INH SOL UD 3ML (DUONEB)(J7620) NEB ×2 (13:58→20:22)
[2017-12-21] MEDS: GABAPENTIN 300 MG CAP PO ×3 (15:17→21:13)
[2017-12-21] MEDS: predniSONE 20 MG TAB PO (15:18)
[2017-12-21 16:54] LABS: BEDSIDE GLUCOSE 334 MG/DL (70-105)
[2017-12-22] MEDS: ACETAMINOPHEN TAB 650MG DOSE (2X325MG) PO (00:46)
[2017-12-22] MEDS: IPRATROPIUM 0.5MG/ALBUTEROL 2.5MG INH SOL UD 3ML (DUONEB)(J7620) NEB ×5 (02:39→21:13)
[2017-12-22 05:39] LABS: HEMATOCRIT 47.4 % (36.0-47.0); HEMOGLOBIN 14.9 g/dl (12.0-15.5); MEAN CORPUSCULAR HEMOGLOBIN 29.6 pg (27.0-33.0); MEAN CORPUSCULAR HGB CONC 31.4 g/dl (32.0-36.5); MEAN CORPUSCULAR VOLUME 94.2 fl (80.0-96.0); PLATELET COUNT, AUTOMATED 292 10^3/uL (150-450); RED BLOOD COUNT 5.03 10^6/uL (4.00-5.40); RED CELL DISTRIBUTION WIDTH 14.6 % (11.5-14.5)
[2017-12-22 05:58] LABS: ANION GAP 7 MEQ/L (8-16); BLOOD UREA NITROGEN 11 MG/DL (7-18); CALCIUM LEVEL 9.2 MG/DL (8.5-10.1); CARBON DIOXIDE LEVEL 29 MEQ/L (21-32); CHLORIDE LEVEL 100 MEQ/L (98-107); CREATININE FOR GFR 0.71 MG/DL (0.55-1.30); GLOMERULAR FILTRATION RATE > 60.0 (>60); GLUCOSE, FASTING 297 MG/DL (70-100); POTASSIUM SERUM 4.9 MEQ/L (3.5-5.1); SODIUM LEVEL 136 MEQ/L (136-145)
[2017-12-22] MEDS: LEVOTHYROXINE 100MCG TABLET (0.1MG) PO (06:35)
[2017-12-22] MEDS: LEVOTHYROXINE 25MCG TABLET (0.025MG) PO (06:35)
[2017-12-22] MEDS: metFORMIN (GLUCOPHAGE) 1000 MG TABLET PO ×2 (07:56→17:28)
[2017-12-22] MEDS: guaiFENesin ER 600 MG TAB PO ×2 (07:56→20:35)
[2017-12-22] MEDS: OMEPRAZOLE 20 MG CAP PO (07:57)
[2017-12-22] MEDS: buPROPion **SR TABLET** (ZYBAN) 150MG PO ×2 (07:57→20:34)
[2017-12-22] MEDS: GABAPENTIN 300 MG CAP PO ×3 (07:57→20:34)
[2017-12-22] MEDS: MELOXICAM (MOBIC) 7.5 MG TAB PO (07:57)
[2017-12-22] MEDS: HumaLOG INSULIN (NovoLOG) PER UNIT SC ×4 (07:58→20:35)
[2017-12-22] MEDS: predniSONE 20 MG TAB PO (07:58)
[2017-12-22] MEDS: DOXYCYCLINE HYCLATE 100 MG in D5W MINI-BAG PLUS 100 ML IV ×2 (07:59→20:36)
[2017-12-22 09:11] LABS: ESTIMATED AVERAGE GLUCOSE 197 MG/DL (60-110); HEMOGLOBIN A1c 8.5 %
[2017-12-22] MEDS: LEVEMIR (INSULIN DETEMIR) 1 UNITS/0.01ML SC (09:51)
[2017-12-22 10:19] LABS: BEDSIDE GLUCOSE 364 MG/DL (70-105)
[2017-12-22 11:44] LABS: BEDSIDE GLUCOSE 338 MG/DL (70-105)
[2017-12-22] MEDS: ALPRAZolam 0.25 MG TAB PO ×2 (14:30→22:37)
[2017-12-22 16:51] LABS: BEDSIDE GLUCOSE 376 MG/DL (70-105)
[2017-12-22 20:29] LABS: BEDSIDE GLUCOSE 298 MG/DL (70-105)
[2017-12-23] MEDS: IPRATROPIUM 0.5MG/ALBUTEROL 2.5MG INH SOL UD 3ML (DUONEB)(J7620) NEB ×4 (03:40→12:00)
[2017-12-23] MEDS: LEVOTHYROXINE 25MCG TABLET (0.025MG) PO (05:12)
[2017-12-23] MEDS: LEVOTHYROXINE 100MCG TABLET (0.1MG) PO (05:12)
[2017-12-23 06:49] LABS: BEDSIDE GLUCOSE 227 MG/DL (70-105)
[2017-12-23 07:05] LABS: HEMATOCRIT 45.1 % (36.0-47.0); HEMOGLOBIN 14.3 g/dl (12.0-15.5); MEAN CORPUSCULAR HEMOGLOBIN 29.5 pg (27.0-33.0); MEAN CORPUSCULAR HGB CONC 31.7 g/dl (32.0-36.5); MEAN CORPUSCULAR VOLUME 93.2 fl (80.0-96.0); PLATELET COUNT, AUTOMATED 290 10^3/uL (150-450); RED BLOOD COUNT 4.84 10^6/uL (4.00-5.40); RED CELL DISTRIBUTION WIDTH 14.6 % (11.5-14.5); WHITE BLOOD COUNT 10.4 10^3/uL (4.0-10.0)
[2017-12-23 07:24] LABS: ANION GAP 5 MEQ/L (8-16); BLOOD UREA NITROGEN 19 MG/DL (7-18); C REACTIVE PROTEIN QUANTITATIV 2.59 MG/DL (0.00-0.30); CALCIUM LEVEL 8.5 MG/DL (8.5-10.1); CARBON DIOXIDE LEVEL 30 MEQ/L (21-32); CHLORIDE LEVEL 102 MEQ/L (98-107); CREATININE FOR GFR 0.56 MG/DL (0.55-1.30); GLOMERULAR FILTRATION RATE > 60.0 (>60); GLUCOSE, FASTING 223 MG/DL (70-100); POTASSIUM SERUM 4.1 MEQ/L (3.5-5.1); SODIUM LEVEL 137 MEQ/L (136-145)
[2017-12-23] MEDS: DOXYCYCLINE HYCLATE 100 MG in D5W MINI-BAG PLUS 100 ML IV (08:06)
[2017-12-23] MEDS: LEVEMIR (INSULIN DETEMIR) 1 UNITS/0.01ML SC (08:07)
[2017-12-23] MEDS: MELOXICAM (MOBIC) 7.5 MG TAB PO (08:08)
[2017-12-23] MEDS: metFORMIN (GLUCOPHAGE) 1000 MG TABLET PO (08:08)
[2017-12-23] MEDS: guaiFENesin ER 600 MG TAB PO (08:08)
[2017-12-23] MEDS: OMEPRAZOLE 20 MG CAP PO (08:08)
[2017-12-23] MEDS: GABAPENTIN 300 MG CAP PO (08:08)
[2017-12-23] MEDS: HumaLOG INSULIN (NovoLOG) PER UNIT SC ×2 (08:08→11:53)
[2017-12-23] MEDS: buPROPion **SR TABLET** (ZYBAN) 150MG PO (08:08)
[2017-12-23] MEDS: ALPRAZolam 0.25 MG TAB PO (08:08)
[2017-12-23] MEDS: predniSONE 20 MG TAB PO (08:08)
[2017-12-23 11:51] LABS: BEDSIDE GLUCOSE 355 MG/DL (70-105)
== END 2017-12-23 12:30 | disposition home or self-care (01) | DRG 141 ==
LOC: M PCU 06:00
DX: J45.901 Unspecified asthma with (acute) exacerbation (principal); J44.0 Chronic obstructive pulmonary disease with (acute) lower respiratory infection; Z93.0 Tracheostomy status; Z68.41 Body mass index [BMI] 40.0-44.9, adult; E11.9 Type 2 diabetes mellitus without complications; J44.1 Chronic obstructive pulmonary disease with (acute) exacerbation; E66.01 Morbid (severe) obesity due to excess calories; F41.0 Panic disorder [episodic paroxysmal anxiety]; F32.9 Major depressive disorder, single episode, unspecified; K21.9 Gastro-esophageal reflux disease without esophagitis; E78.5 Hyperlipidemia, unspecified; F17.210 Nicotine dependence, cigarettes, uncomplicated; E03.9 Hypothyroidism, unspecified; Z86.73 Personal history of transient ischemic attack (TIA), and cerebral infarction without residual deficits; Z85.21 Personal history of malignant neoplasm of larynx; Z79.84 Long term (current) use of oral hypoglycemic drugs; Z88.2 Allergy status to sulfonamides; Z88.1 Allergy status to other antibiotic agents; Z88.8 Allergy status to other drugs, medicaments and biological substances; Z92.3 Personal history of irradiation; J20.9 Acute bronchitis, unspecified; Z79.899 Other long term (current) drug therapy

== ENCOUNTER 2018-04-23 13:35 | Emergency (ER) | payer OTHER | END 2018-04-23 15:07 | disposition home or self-care (01) | LOC: M ED 13:35 | DX: G89.29 Other chronic pain (principal); M54.2 Cervicalgia; I10 Essential (primary) hypertension; E11.9 Type 2 diabetes mellitus without complications; E07.9 Disorder of thyroid, unspecified; F17.210 Nicotine dependence, cigarettes, uncomplicated | CPT/HCPCS: 99284 ==

== ENCOUNTER 2018-05-09 14:38 | Emergency (ER) | payer OTHER ==
[2018-05-09 16:18] LABS: BASO # 0.1 10^3/uL (0.0-0.2); BASO % 0.6 % (0.0-1.0); EOS # 0.3 10^3/uL (0.0-0.50); EOS % 2.6 % (0.0-3.0); HEMATOCRIT 56.2 % (36.0-47.0); HEMOGLOBIN 18.3 g/dl (12.0-15.5); IMMATURE GRANULOCYTE % 0.6 % (0-3.0); LYMPH # 2.4 10^3/uL (1.5-4.5); LYMPH % 21.9 % (24.0-44.0); MEAN CORPUSCULAR HEMOGLOBIN 29.2 pg (27.0-33.0); MEAN CORPUSCULAR HGB CONC 32.6 g/dl (32.0-36.5); MEAN CORPUSCULAR VOLUME 89.6 fl (80.0-96.0); MONO # 0.9 10^3/uL (0.0-0.8); MONO % 8.5 % (0.0-5.0); NEUTROPHILS # 7.2 10^3/uL (1.8-7.7); NEUTROPHILS % 65.8 % (36.0-66.0); PLATELET COUNT, AUTOMATED 323 10^3/uL (150-450); RED BLOOD COUNT 6.27 10^6/uL (4.00-5.40); RED CELL DISTRIBUTION WIDTH 15.2 % (11.5-14.5); WHITE BLOOD COUNT 10.9 10^3/uL (4.0-10.0)
[2018-05-09 16:26] LABS: KETONE, URINE AUTO RFX TRACE mg/dL (NEGATIVE); LEUKOCYTE ESTERASE UR AUTO RFX NEGATIVE (NEGATIVE); MUCUS, URINE RFX SMALL (NEGATIVE); NITRITE, URINE AUTO RFX NEGATIVE (NEGATIVE); RBC, URINE AUTO RFX 1 /HPF (0-3); SPECIFIC GRAVITY UR AUTO RFX 1.023 (1.002-1.035); SQUAM EPITHELIAL CELL UR AURFX 17 /HPF (0-6); WBC, URINE AUTO RFX 3 /HPF (0-3)
[2018-05-09 16:38] LABS: ANION GAP 8 MEQ/L (8-16); BLOOD UREA NITROGEN 10 MG/DL (7-18); CARBON DIOXIDE LEVEL 29 MEQ/L (21-32); CHLORIDE LEVEL 100 MEQ/L (98-107); CREATININE FOR GFR 0.64 MG/DL (0.55-1.30); GLOMERULAR FILTRATION RATE > 60.0 (>60); GLUCOSE, FASTING 176 MG/DL (70-100); POTASSIUM SERUM 3.9 MEQ/L (3.5-5.1); SODIUM LEVEL 137 MEQ/L (136-145)
[2018-05-09] MEDS: ALBUTEROL SULFATE 2.5 MG/0.5 ML INH NEB SOLN NEB (17:14)
[2018-05-09 17:22] LABS: ALBUMIN 4.1 GM/DL (3.2-5.2); ALKALINE PHOSPHATASE 122 U/L (45-117); ALT/SGPT 62 U/L (12-78); AST/SGOT 41 U/L (7-37); BILIRUBIN,DIRECT < 0.1 MG/DL (0.0-0.2); BILIRUBIN,TOTAL 0.5 MG/DL (0.2-1.0); LIPASE 146 U/L (73-393); TOTAL PROTEIN 8.2 GM/DL (6.4-8.2)
[2018-05-09] MEDS: ONDANSETRON 4MG/2ML VIAL (J2405) IV (17:24)
[2018-05-09] MEDS: LORazepam 2 MG/ML VIAL (J2060) IV (17:24)
[2018-05-09] MEDS ORDERED: ISOVUE-370 76% 100ML VIAL (Q9967) As Ordered (18:50)
[2018-05-09] MEDS: KETOROLAC 30 MG/ML VIAL (J1885) IV (19:48)
== END 2018-05-09 20:42 | disposition home or self-care (01) ==
LOC: M ED 14:38
DX: K52.9 Noninfective gastroenteritis and colitis, unspecified (principal); K42.0 Umbilical hernia with obstruction, without gangrene; E11.9 Type 2 diabetes mellitus without complications; I10 Essential (primary) hypertension; E78.5 Hyperlipidemia, unspecified; Z86.73 Personal history of transient ischemic attack (TIA), and cerebral infarction without residual deficits; K21.9 Gastro-esophageal reflux disease without esophagitis; J45.909 Unspecified asthma, uncomplicated; E03.9 Hypothyroidism, unspecified; F41.9 Anxiety disorder, unspecified; F32.9 Major depressive disorder, single episode, unspecified; F42.9 Obsessive-compulsive disorder, unspecified; Z87.42 Personal history of other diseases of the female genital tract; R51 Headache; Z85.818 Personal history of malignant neoplasm of other sites of lip, oral cavity, and pharynx; Z88.2 Allergy status to sulfonamides; Z88.8 Allergy status to other drugs, medicaments and biological substances; Z88.1 Allergy status to other antibiotic agents; Z79.899 Other long term (current) drug therapy; Z79.1 Long term (current) use of non-steroidal anti-inflammatories (NSAID); Z79.84 Long term (current) use of oral hypoglycemic drugs; F17.210 Nicotine dependence, cigarettes, uncomplicated
CPT/HCPCS: J2405

== ENCOUNTER 2018-06-08 20:07 | Inpatient (IN) | payer OTHER ==
[2018-06-08] MEDS: MORPHINE 4 MG/ML 1ML VIAL/SYRINGE (J2270) IV ×2 (20:57→23:45)
[2018-06-08 21:11] LABS: BASO # 0.1 10^3/uL (0.0-0.2); BASO % 0.5 % (0.0-1.0); EOS # 0.3 10^3/uL (0.0-0.50); EOS % 2.3 % (0.0-3.0); HEMATOCRIT 51.1 % (36.0-47.0); HEMOGLOBIN 16.4 g/dl (12.0-15.5); IMMATURE GRANULOCYTE % 0.3 % (0-3.0); LYMPH # 1.6 10^3/uL (1.5-4.5); LYMPH % 13.2 % (24.0-44.0); MEAN CORPUSCULAR HEMOGLOBIN 29.4 pg (27.0-33.0); MEAN CORPUSCULAR HGB CONC 32.1 g/dl (32.0-36.5); MEAN CORPUSCULAR VOLUME 91.6 fl (80.0-96.0); MONO % 7.9 % (0.0-5.0); NEUTROPHILS # 9.2 10^3/uL (1.8-7.7); NEUTROPHILS % 75.8 % (36.0-66.0); PLATELET COUNT, AUTOMATED 246 10^3/uL (150-450); RED BLOOD COUNT 5.58 10^6/uL (4.00-5.40); WHITE BLOOD COUNT 12.1 10^3/uL (4.0-10.0)
[2018-06-08 21:41] LABS: ALBUMIN 3.9 GM/DL (3.2-5.2); ALBUMIN/GLOBULIN RATIO 1.03 (1.00-1.93); ALKALINE PHOSPHATASE 116 U/L (45-117); ALT/SGPT 29 U/L (12-78); ANION GAP 7 MEQ/L (8-16); AST/SGOT 25 U/L (7-37); BILIRUBIN,DIRECT < 0.1 MG/DL (0.0-0.2); BILIRUBIN,TOTAL 0.5 MG/DL (0.2-1.0); BLOOD UREA NITROGEN 8 MG/DL (7-18); CALCIUM LEVEL 8.9 MG/DL (8.5-10.1); CARBON DIOXIDE LEVEL 30 MEQ/L (21-32); CHLORIDE LEVEL 95 MEQ/L (98-107); CK-MB VALUE MASS < 1.0 NG/ML (<3.6); CPK CREATINE PHOSPHOKINASE 71 U/L (26-192); CREATININE FOR GFR 0.61 MG/DL (0.55-1.30); GLOMERULAR FILTRATION RATE > 60.0 (>60); GLUCOSE, FASTING 117 MG/DL (70-100); LIPASE 113 U/L (73-393); MB/CK RELATIVE INDEX 1.41 (< OR =4); POTASSIUM SERUM 4.6 MEQ/L (3.5-5.1); SODIUM LEVEL 132 MEQ/L (136-145); TOTAL PROTEIN 7.7 GM/DL (6.4-8.2); TROPONIN I 0.03 NG/ML (< 0.10)
[2018-06-08 21:45] LABS: INR 0.96; PROTHROMBIN TIME 12.9 SECONDS (12.1-14.4)
[2018-06-08] MEDS: methylPREDNISolone INJ 125 MG/2 ML VIAL (J2930) IV (21:45)
[2018-06-08] MEDS: IPRATROPIUM 0.5MG/ALBUTEROL 2.5MG INH SOL UD 3ML (DUONEB)(J7620) NEB ×3 (21:50→21:51)
[2018-06-08] MEDS ORDERED: ISOVUE-370 76% 100ML VIAL (Q9967) As Ordered (21:54)
[2018-06-08] MEDS: AZITHROMYCIN INJ 500 MG, VIAL MATE ADAPTER 1 EACH in D5W 250 ML IV (23:45)
[2018-06-09] MEDS ORDERED: GLUCAGON FOR INJ 1 MG VIAL (J1610) SC (00:30)
[2018-06-09] MEDS ORDERED: DEXTROSE 50% 50 ML SYRINGE IV (00:30)
[2018-06-09] MEDS ORDERED: IPRATROPIUM 0.5MG/ALBUTEROL 2.5MG INH SOL UD 3ML (DUONEB)(J7620) INH (00:30)
[2018-06-09] MEDS ORDERED: GLUCOSE 4 GM CHEW TABLET PO (00:30)
[2018-06-09] MEDS: MORPHINE 4 MG/ML 1ML VIAL/SYRINGE (J2270) IV (00:34)
[2018-06-09] MEDS: busPIRone 10 MG TAB PO (03:04)
[2018-06-09] MEDS: ACETAMINOPHEN TAB 650MG DOSE (2X325MG) PO (03:05)
[2018-06-09] MEDS: LEVOTHYROXINE 25MCG TABLET (0.025MG) PO (05:44)
[2018-06-09] MEDS: LEVOTHYROXINE 100MCG TABLET (0.1MG) PO (05:45)
[2018-06-09 05:57] LABS: HEMATOCRIT 47.1 % (36.0-47.0); MEAN CORPUSCULAR HEMOGLOBIN 28.8 pg (27.0-33.0); MEAN CORPUSCULAR HGB CONC 31.8 g/dl (32.0-36.5); MEAN CORPUSCULAR VOLUME 90.4 fl (80.0-96.0); PLATELET COUNT, AUTOMATED 230 10^3/uL (150-450); RED BLOOD COUNT 5.21 10^6/uL (4.00-5.40); WHITE BLOOD COUNT 12.8 10^3/uL (4.0-10.0)
[2018-06-09 06:25] LABS: ANION GAP 8 MEQ/L (8-16); BLOOD UREA NITROGEN 7 MG/DL (7-18); CALCIUM LEVEL 8.5 MG/DL (8.5-10.1); CARBON DIOXIDE LEVEL 27 MEQ/L (21-32); CHLORIDE LEVEL 96 MEQ/L (98-107); GLOMERULAR FILTRATION RATE > 60.0 (>60); GLUCOSE, FASTING 283 MG/DL (70-100); POTASSIUM SERUM 4.1 MEQ/L (3.5-5.1); SODIUM LEVEL 131 MEQ/L (136-145)
[2018-06-09] MEDS: HumaLOG INSULIN (NovoLOG) PER UNIT SC ×2 (07:43→12:00)
[2018-06-09] MEDS: hydrOXYzine 10 MG TAB PO ×2 (07:43→13:00)
[2018-06-09] MEDS: metFORMIN (GLUCOPHAGE) 1000 MG TABLET PO (07:43)
[2018-06-09] MEDS: ENOXAPARIN 40 MG/0.4 ML SYRINGE (J1650) SC (07:44)
[2018-06-09] MEDS: AZITHROMYCIN 250 MG TAB PO (07:44)
[2018-06-09] MEDS: GABAPENTIN 300 MG CAP PO (07:44)
[2018-06-09] MEDS: DULoxetine 30 MG CAP (CYMBALTA) PO (07:44)
[2018-06-09] MEDS: predniSONE 10 MG TAB PO (07:44)
[2018-06-09] MEDS: OMEPRAZOLE 20 MG CAP PO (07:44)
[2018-06-09 09:13] LABS: ERYTHROCYTE SEDIMENTATION RATE 2 mm/hr (0-20)
[2018-06-09 11:41] LABS: BEDSIDE GLUCOSE 276 MG/DL (70-105)
[2018-06-09] MEDS ORDERED: HumaLOG INSULIN (NovoLOG) PER UNIT SC (21:00)
[2018-06-10] MEDS ORDERED: INFLUENZA QUADRIVALENT PF VACCINE 0.5ML SYRINGE (90686) IM (09:00)
== END 2018-06-09 17:25 | disposition home or self-care (01) | DRG 133 ==
LOC: M ED INP 06-09 00:18 → M MSPAV 06-09 02:38 → M ED 20:07
DX: J96.00 Acute respiratory failure, unspecified whether with hypoxia or hypercapnia (principal); J44.1 Chronic obstructive pulmonary disease with (acute) exacerbation; Z93.0 Tracheostomy status; Z68.41 Body mass index [BMI] 40.0-44.9, adult; E66.01 Morbid (severe) obesity due to excess calories; J45.909 Unspecified asthma, uncomplicated; F17.210 Nicotine dependence, cigarettes, uncomplicated; E11.9 Type 2 diabetes mellitus without complications; E03.9 Hypothyroidism, unspecified; K21.9 Gastro-esophageal reflux disease without esophagitis; Z86.73 Personal history of transient ischemic attack (TIA), and cerebral infarction without residual deficits; Z90.710 Acquired absence of both cervix and uterus; Z90.49 Acquired absence of other specified parts of digestive tract; Z88.2 Allergy status to sulfonamides; Z88.1 Allergy status to other antibiotic agents; Z92.3 Personal history of irradiation; Z85.21 Personal history of malignant neoplasm of larynx; Z79.84 Long term (current) use of oral hypoglycemic drugs; Z79.899 Other long term (current) drug therapy

== ENCOUNTER 2018-07-02 02:08 | Emergency (ER) | payer OTHER ==
[2018-07-02 02:50] LABS: BEDSIDE GLUCOSE 105 MG/DL (70-105)
[2018-07-02] MEDS ORDERED: ACETAMINOPHEN TAB 650MG DOSE (2X325MG) As Ordered (02:54)
[2018-07-02] MEDS: AUGMENTIN 875 MG TAB PO (02:55)
[2018-07-02] MEDS: ACETAMINOPHEN TAB 650MG DOSE (2X325MG) PO (02:57)
== END 2018-07-02 02:58 | disposition home or self-care (01) ==
LOC: M ED 02:58
DX: H66.91 Otitis media, unspecified, right ear (principal); E11.9 Type 2 diabetes mellitus without complications; J44.9 Chronic obstructive pulmonary disease, unspecified; E03.9 Hypothyroidism, unspecified; F41.9 Anxiety disorder, unspecified; K21.9 Gastro-esophageal reflux disease without esophagitis; Z93.0 Tracheostomy status; Z79.899 Other long term (current) drug therapy; Z79.890 Hormone replacement therapy; Z88.1 Allergy status to other antibiotic agents; Z88.2 Allergy status to sulfonamides; Z88.8 Allergy status to other drugs, medicaments and biological substances; F17.210 Nicotine dependence, cigarettes, uncomplicated
CPT/HCPCS: 99284

== ENCOUNTER 2018-08-16 01:19 | Emergency (ER) | payer OTHER ==
[~2018-08-16] VITALS: Ht 170.2 cm; Wt 130.0 kg
[~2018-08-16 01:19] MED LIST changes: +ACET30TAB PO; +ALBU83IN; +ASPI1TAB PO; +ASPI81TA24 PO; +ATRO0.063; +AUGM500T34 PO; +AZIT-12 PO; +BACL10TA2 PO; +BUPR15TASR PO; +BUSP10TA PO; +CEFU50TA PO; +CLEO300C2 PO; +CYMB60CA3 PO; +DOXY-350 PO; +DOXY100C37 PO; -FENO145T PO; +FENO145T13 PO; +FLON1SPR; -GABA-282 PO; +GABA-843 PO; +GABA-845 PO; +GABA600T4 PO; -GEMF600T PO; +GEMF600T5 PO; +GLYB5TA PO; +HYDR-643 PO; +HYDR12.55; +HYDR12.55 PO; +HYDR12CA PO; +IPRA0.00 INH; +IPRA0.00 NEB; +LEVO200T31 PO; +LEVO200T4; +LEVO25TA34 PO; +MELO15TA28 PO; +METF-415 PO; +MUCI600T37 PO; +NAPR-50 PO; +NICO21PAT TD; +NORCOTAB PO; +PRED10TA2 PO; +PULM0.5S NEB; +TRAZ-160 PO; -TRAZ50TA11 PO; +VENTAER INH; +XANA0.5T PO; +ZOFR4TAB14 PO
[2018-08-16 01:20] VITALS: BP 186/122
[2018-08-16] MEDS ORDERED: LABETALOL HCL 100 MG/20 ML VIAL IV STA (02:35)
[2018-08-16 03:22] LABS: BASO # 0.1 10^3/uL (0.0-0.2); BASO % 0.8 % (0.0-1.0); EOS # 0.5 10^3/uL (0.0-0.50); EOS % 4.8 % (0.0-3.0); HEMATOCRIT 55.6 % (36.0-47.0); HEMOGLOBIN 18.2 g/dl (12.0-15.5); LYMPH % 32.2 % (24.0-44.0); MEAN CORPUSCULAR HEMOGLOBIN 29.6 pg (27.0-33.0); MEAN CORPUSCULAR HGB CONC 32.7 g/dl (32.0-36.5); MEAN CORPUSCULAR VOLUME 90.4 fl (80.0-96.0); MONO # 0.7 10^3/uL (0.0-0.8); MONO % 7.1 % (0.0-5.0); NEUTROPHILS # 5.1 10^3/uL (1.8-7.7); NEUTROPHILS % 54.8 % (36.0-66.0); PLATELET COUNT, AUTOMATED 232 10^3/uL (150-450); RED BLOOD COUNT 6.15 10^6/uL (4.00-5.40); WHITE BLOOD COUNT 9.3 10^3/uL (4.0-10.0)
--- NOTE | 2018-08-16 03:43 | REPVR ---
EXAM: CT Head Without Contrast EXAM DATE/TIME: 08/16/18 (2:35am) CLINICAL HISTORY: 37 year old female. Pain, headache. Hypertensive emergency. TECHNIQUE: Axial computed tomography images of the head without contrast. All CT scans at this facility use at least one of these dose optimization techniques: automated exposure control; mA and/or kV adjustment per patient size (includes targeted exams where dose is matched to clinical indication); or iterative reconstruction. COMPARISON: CT HEAD of 04/14/16 FINDINGS: Brain: Unremarkable. No acute hemorrhage. No significant white matter disease. No cerebral edema. Ventricles: Normal. No ventriculomegaly. Bones/joints: Normal. No acute fracture. Sinuses: Normal as visualized. No acute sinusitis. Mastoid air cells: Normal as visualized. No mastoid effusion. Soft tissues: Normal. IMPRESSION: No acute intracranial pathology is appreciated. Electronically signed by: Lily Latham On 08/16/2018 03:42:33 AM
[2018-08-16] MEDS ORDERED: LABETALOL 100 MG TAB PO ONE (04:00)
[2018-08-16 04:05] VITALS: BP 140/79
[2018-08-16 04:15] LABS: ALBUMIN 4.4 GM/DL (3.2-5.2); BILIRUBIN,DIRECT < 0.1 MG/DL (0.0-0.2); BILIRUBIN,TOTAL 0.5 MG/DL (0.2-1.0); BLOOD UREA NITROGEN 13 MG/DL (7-18); CARBON DIOXIDE LEVEL 31 MEQ/L (21-32); CHLORIDE LEVEL 95 MEQ/L (98-107); CPK CREATINE PHOSPHOKINASE 159 U/L (26-192); CREATININE FOR GFR 0.87 MG/DL (0.55-1.30); GLOMERULAR FILTRATION RATE > 60.0 (>60); GLUCOSE, FASTING 186 MG/DL (70-100); MB/CK RELATIVE INDEX 1.07 (< OR =4); POTASSIUM SERUM 4.4 MEQ/L (3.5-5.1); SODIUM LEVEL 134 MEQ/L (136-145); TOTAL PROTEIN 8.2 GM/DL (6.4-8.2); TROPONIN I < 0.02 NG/ML (< 0.10)
[2018-08-16 04:17] LABS: ALT/SGPT 37 U/L (12-78)
[2018-08-16] MEDS ORDERED: LABE10TAB PO (04:58)
--- NOTE | 2018-08-16 08:16 | REP ---
Clinical: Chest pain . Comparison: 12/17/2017 . Findings: The mediastinum and cardiac silhouette are stable and within normal limits for portable technique. The lung mercedes are clear without acute consolidation, effusion, or pneumothorax. Skeletal structures are intact. Impression: No acute cardiopulmonary process appreciated. Electronically Signed by Micha Maldonado MD 08/16/2018 08:07 A
--- NOTE | 2018-08-17 09:11 | ECGEPIP ---
Stationary ECG Study [facility] - ED Test Date: 2018-08-16 Pat Name: ESSENCE AGUERO Department: Room: - Gender: F Supply Clerk: ngozi : 1980 Requested By: NICK CARRINGTON Order Number: [id number] Reading MD: Leia Martinez Measurements Intervals [place] Rate: 68 P: 57 IA: 194 QRS: -79 QRSD: 127 T: 13 QT: 407 QTc: 435 Interpretive Statements SINUS RHYTHM SEPTAL MYOCARDIAL INFARCTION, OF INDETERMINATE AGE INFERIOR MYOCARDIAL INFARCTION, PROBABLY OLD Electronically Signed On 08-17-2018 9:10:46 EST by Leia Martinez
== END 2018-08-16 05:14 | disposition home or self-care (01) ==
LOC: M ED 01:19
DX: I16.0 Hypertensive urgency (principal); E11.9 Type 2 diabetes mellitus without complications; Z86.73 Personal history of transient ischemic attack (TIA), and cerebral infarction without residual deficits; Z87.891 Personal history of nicotine dependence; Z88.2 Allergy status to sulfonamides; Z88.8 Allergy status to other drugs, medicaments and biological substances; Z88.1 Allergy status to other antibiotic agents; Z79.899 Other long term (current) drug therapy; Z79.51 Long term (current) use of inhaled steroids; Z79.84 Long term (current) use of oral hypoglycemic drugs

== ENCOUNTER → 2018-08-27 | Outpatient (REF) | payer OTHER ==
[~2018-08-27] MED LIST changes: +LABE10TAB PO
[2018-08-27 20:33] LABS: BASO # 0.1 10^3/uL (0.0-0.2); BASO % 0.8 % (0.0-1.0); EOS # 0.4 10^3/uL (0.0-0.50); EOS % 4.3 % (0.0-3.0); HEMATOCRIT 53.9 % (36.0-47.0); HEMOGLOBIN 17.3 g/dl (12.0-15.5); LYMPH # 2.4 10^3/uL (1.5-4.5); LYMPH % 24.6 % (24.0-44.0); MEAN CORPUSCULAR HEMOGLOBIN 29.9 pg (27.0-33.0); MEAN CORPUSCULAR HGB CONC 32.1 g/dl (32.0-36.5); MEAN CORPUSCULAR VOLUME 93.1 fl (80.0-96.0); MONO # 0.9 10^3/uL (0.0-0.8); NEUTROPHILS % 60.9 % (36.0-66.0); PLATELET COUNT, AUTOMATED 308 10^3/uL (150-450); RED BLOOD COUNT 5.79 10^6/uL (4.00-5.40); WHITE BLOOD COUNT 9.8 10^3/uL (4.0-10.0)
[2018-08-27 20:45] LABS: HEMOGLOBIN A1c 7.8 %
[2018-08-27 20:53] LABS: CREATININE, URINE 23.7 MG/DL; MAU/CREAT RATIO 687.7 MCG/MG (0.0-30.0)
[2018-08-27 21:52] LABS: ALBUMIN 4.4 GM/DL (3.2-5.2); ALT/SGPT 47 U/L (12-78); BILIRUBIN,TOTAL 0.5 MG/DL (0.2-1.0); BLOOD UREA NITROGEN 11 MG/DL (7-18); CALCIUM LEVEL 9.1 MG/DL (8.5-10.1); CARBON DIOXIDE LEVEL 34 MEQ/L (21-32); CHLORIDE LEVEL 96 MEQ/L (98-107); CREATININE FOR GFR 0.72 MG/DL (0.55-1.30); GLOMERULAR FILTRATION RATE > 60.0 (>60); GLUCOSE, FASTING 179 MG/DL (70-100); POTASSIUM SERUM 4.5 MEQ/L (3.5-5.1); SODIUM LEVEL 134 MEQ/L (136-145); TOTAL PROTEIN 8.4 GM/DL (6.4-8.2)
== END ==
LOC: M LAB REF 18:39
PROVIDERS: ATTEND Family Medicine Addiction Medicine
DX: E11.9 Type 2 diabetes mellitus without complications (principal)

== ENCOUNTER 2018-10-25 19:20 | Observation (INO) | payer OTHER ==
[~2018-10-25] VITALS: Ht 180.3 cm; Wt 130.5 kg
[~2018-10-25 19:20] MED LIST changes: -/DULO30CA OR; -/ESOM40CA OR; +ACET-716 PO; -ACET30TAB PO; -ASPI1TAB PO; +ASPI81TA26 PO; +CYMB1CAP5 OR; +HYDR-3715 PO; -NAPR-50 PO; +NAPR-837 PO; +NEXI1CAP3 OR; -NORCOTAB PO
--- NOTE | 2018-10-25 20:15 | REP ---
Clinical: Foreign body inhalation . Comparison: 12/17/2017 . Technique: PA and lateral. Findings: The mediastinum and cardiac silhouette are normal. The lung mercedes are clear and without acute consolidation, effusion, or pneumothorax. Lung volumes are symmetric. The skeletal structures are intact and normal. No obvious radiodense or radiolucent foreign body is appreciated. Impression: 1. No acute cardiopulmonary process. 2. No obvious foreign body identified. Electronically Signed by Micha Mladonado MD 10/25/2018 08:06 P
--- NOTE | 2018-10-25 21:06 | REP ---
Clinical: Possible foreign body. Technique: Axial noncontrast images from the thoracic inlet to the upper abdomen with coronal and sagittal re-formations. Comparison: 06/08/2018. Findings: The patient appears to be status post tracheotomy. The tracheobronchial tree is otherwise the patent and without obvious foreign body identified. The lung mercedes demonstrate minimal chronic biapical scarring and scattered interstitial changes. Small area of fibro atelectatic change along the medial right middle lobe is identified. No consolidation, pleural effusion, obvious mass lesion or pneumothorax. Mildly prominent mediastinal lymph nodes including a precarinal lymph node measuring 12 mm short-axis diameter are nonspecific and stable. Thoracic aorta, pulmonary vasculature and heart/pericardium appear normal. Left common carotid stent is suggested. The osseous structures are intact. Limited upper abdomen demonstrates normal bilateral adrenal glands and evidence of prior cholecystectomy. Impression: 1. Chronic-appearing changes. No obvious consolidation or acute process appreciated. 2. Evidence of prior tracheotomy. 3. No obvious foreign body. Electronically Signed by Micha Maldonado MD 10/25/2018 08:58 P
[2018-10-25 21:07] LABS: HEMATOCRIT 49.8 % (36.0-47.0); HEMOGLOBIN 16.2 g/dl (12.0-15.5); MEAN CORPUSCULAR HEMOGLOBIN 29.6 pg (27.0-33.0); MEAN CORPUSCULAR HGB CONC 32.5 g/dl (32.0-36.5); PLATELET COUNT, AUTOMATED 328 10^3/uL (150-450); RED BLOOD COUNT 5.47 10^6/uL (4.00-5.40); WHITE BLOOD COUNT 10.7 10^3/uL (4.0-10.0)
[2018-10-25 21:14] LABS: INR 0.92; PROTHROMBIN TIME 12.5 SECONDS (12.1-14.4)
[2018-10-25 21:22] LABS: ALBUMIN 3.8 GM/DL (3.2-5.2); ALT/SGPT 33 U/L (12-78); BILIRUBIN,DIRECT < 0.1 MG/DL (0.0-0.2); BILIRUBIN,TOTAL 0.3 MG/DL (0.2-1.0); BLOOD UREA NITROGEN 7 MG/DL (7-18); CARBON DIOXIDE LEVEL 29 MEQ/L (21-32); CHLORIDE LEVEL 98 MEQ/L (98-107); CREATININE FOR GFR 0.83 MG/DL (0.55-1.30); GLOMERULAR FILTRATION RATE > 60.0 (>58); GLUCOSE, FASTING 127 MG/DL (70-100); POTASSIUM SERUM 4.5 MEQ/L (3.5-5.1); SODIUM LEVEL 134 MEQ/L (136-145); TOTAL PROTEIN 7.2 GM/DL (6.4-8.2)
--- NOTE | 2018-10-25 21:26 | HPEPDOC ---
[facility] Medical History & Physical Date of Admission Oct 25, [address] Frederick History and Physical CHIEF COMPLAINT: Aspiration of suction device HISTORY OF PRESENT ILLNESS: Patient is a 38-year-old female with past medical history of cancer status post tracheostomy and stoma, hypertension, hypothyroidism, diabetes presented to the ER with complaints of dislodging a suction device into her stoma today while she was suctioning her stoma. She presented with no symptoms complaints of no shortness of breath, pain or any discomfort. Saturation remained stable. Imaging in the ER cannot visualize the foreign body. Discussed with Pulm in ER who will likely bronch patient in AM. PAST MEDICAL HISTORY: 1. Laryngeal cancer status post trach and stoma. 2. Diabetes mellitus. 3. Hypothyroid. 4. Asthma? 5. hx CVA PAST SURGICAL HISTORY: 1. Hysterectomy. 2. Cholecystectomy. 3. Laryngeal cancer surgery. SOCIAL HISTORY: 1/2ppd smoker. Social marijuana use, no alcohol. FAMILY HISTORY: DM and HTN in family ALLERGIES: Please see below. REVIEW OF SYSTEMS: 10 point review of system negative except as stated in HPI HOME MEDICATIONS: Please see below. PHYSICAL EXAMINATION: General: No acute distress, Alert Eyes: Normal sclera, EOMI, LAZARA HENT: Atraumatic, neck supple, moist mucous membranes Cardiovascular: Normal rate, normal rhythm. No murmurs appreciated. Pulmonary: Mild whistling on inspiration, no wheezing GI: Soft, nontender, nondistended Skin: Warm and dry Neuro: CN grossly intact. No focal deficits. Strengths equal b/l. Psych: oriented x 3 LABORATORY DATA: See below. IMAGING: CXR- Findings: The mediastinum and cardiac silhouette are normal. The lung mercedes are clear and without acute consolidation, effusion, or pneumothorax. Lung volumes are symmetric. The skeletal structures are intact and normal. No obvious radiodense or radiolucent foreign body is appreciated. Impression: 1. No acute cardiopulmonary process. 2. No obvious foreign body identified. Chest CT- Findings: The patient appears to be status post tracheotomy. The tracheobronchial tree is otherwise the patent and without obvious foreign body identified. The lung mercedes demonstrate minimal chronic biapical scarring and scattered interstitial changes. Small area of fibro atelectatic change along the medial right middle lobe is identified. No consolidation, pleural effusion, obvious mass lesion or pneumothorax. Mildly prominent mediastinal lymph nodes including a precarinal lymph node measuring 12 mm short-axis diameter are nonspecific and stable. Thoracic aorta, pulmonary vasculature and heart/pericardium appear normal. Left common carotid stent is suggested. The osseous structures are intact. Limited upper abdomen demonstrates normal bilateral adrenal glands and evidence of prior cholecystectomy. Impression: 1. Chronic-appearing changes. No obvious consolidation or acute process appreciated. 2. Evidence of prior tracheotomy. 3. No obvious foreign body. MICROBIOLOGY: Please see below. ASSESSMENT AND PLAN: 1. Foreign body aspiration - CT and CXR with no visualization of foreign body, presumed in airway somewhere. - In no respiratory distress, saturations stable. - Pulm consult. NPO after midnight for bronchoscopy in AM. 2. DM - Hold home oral meds. - Accuchecks and ISS. 3. Hypothyroid - Hold home meds now. - Give half dose in IV form in AM. 4. ?Asthma - Duonebs PRN Patient is high risk due to foreign body obstruction Estimated length of stay less than 2 days with expected disposition to home Vital Signs Vital Signs Date Time Temp Pulse Resp B/P (MAP) Pulse Ox O2 Delivery O2 Flow Rate FiO2 10/25/18 20:27 102/58 (73) 10/25/18 20:20 66 18 94 Trach Collar 5.0 10/25/18 19:21 97.7 Laboratory Data Labs 24H Laboratory Tests 2 10/25/18 20:50: Nucleated Red Blood Cells % (auto) 0.0, Prothrombin Time 12.5, Prothromb Time International Ratio 0.92, Anion Gap 7L, Glomerular Filtration Rate > 60.0, Calcium Level 9.0, Aspartate Amino Transf (AST/SGOT) 24, Alanine Aminotransferase (ALT/SGPT) 33, Alkaline Phosphatase 89, Total Bilirubin 0.3, Direct Bilirubin < 0.1, Total Protein 7.2, Albumin 3.8, Albumin/Globulin Ratio 1.12 CBC/BMP Laboratory Tests 10/25/18 20:50 Red Blood Count 5.47 H, Mean Corpuscular Volume 91.0, Mean Corpuscular Hemoglobin 29.6, Mean Corpuscular Hemoglobin Concent 32.5, Red Cell Distribution Width 14.0 Home Medications Scheduled Budesonide (Budesonide) 0.5 Mg/2 Ml Neb, 1 VIAL NEB BID Buspirone HCl (Buspirone HCl) 10 Mg Tab, 10 MG PO QHS Duloxetine Hcl (Cymbalta) 60 Mg Cap, 60 MG PO DAILY Gabapentin (Gabapentin) 600 Mg Tab, 600 MG PO TID Glyburide (Glyburide) 5 Mg Tab, 5 MG PO DAILY Labetalol HCl (Labetalol HCl) 100 Mg Tab, 100 MG PO BID Levothyroxine Sodium (Levoxyl) 200 Mcg Tab, 200 MCG PO DAILY 225MCG TOTAL DAILY Levothyroxine Sodium (Levoxyl) 25 Mcg Tab, 25 MCG PO DAILY 225MCG TOTAL DAILY Metformin Hydrochloride (Metformin HCl) 1,000 Mg Tab, 1,000 MG PO BID Omeprazole (Omeprazole) 40 Mg Cap, 40 MG PO DAILY Scheduled PRN Albuterol/Ipratropium (Ipratropium [place]/Albut 0.5-2.5 (3) mg/3Ml) 1 Jah Jah, 1 JAH INH QID PRN for SHORTNESS OF BREATH Hydroxyzine HCl (Hydroxyzine HCl) 10 Mg Tab, 10 MG PO QID PRN for ANXIETY/AGITATION Allergies Coded Allergies: cefuroxime (Verified Allergy, Intermediate, RASH/HIVES, 10/25/18) moxifloxacin (Verified Allergy, Intermediate, HIVES, 10/25/18) sulfamethoxazole (Verified Allergy, Intermediate, HIVES, 10/25/18) trimethoprim (Verified Allergy, Intermediate, HIVES, 10/25/18) ROQUE VEGA MD Oct 25, 2018 21:26
[2018-10-25] MEDS ORDERED: OMEP40CA2 PO (21:37)
[2018-10-25] MEDS ORDERED: LABE10TAB PO (21:39)
[2018-10-25] MEDS ORDERED: BUDE0.5S6 NEB (21:39)
[2018-10-25] MEDS ORDERED: NS 1,000 ML IV SCH (22:56)
[2018-10-25] MEDS ORDERED: GLUCAGON FOR INJ 1 MG VIAL (J1610) SC PRN (23:00)
[2018-10-25] MEDS ORDERED: DEXTROSE 50% 50 ML SYRINGE IV PRN (23:00)
[2018-10-25] MEDS ORDERED: GLUCOSE 4 GM CHEW TABLET PO PRN (23:00)
[2018-10-25] MEDS ORDERED: IPRATROPIUM 0.5MG/ALBUTEROL 2.5MG INH SOL UD 3ML (DUONEB)(J7620) NEB PRN (23:30)
[2018-10-25 23:58] VITALS: BP 107/69
[2018-10-26] MEDS: HumaLOG INSULIN (NovoLOG) PER UNIT SC SCH ×3 (00:51→08:00)
[2018-10-26] MEDS: IPRATROPIUM 0.5MG/ALBUTEROL 2.5MG INH SOL UD 3ML (DUONEB)(J7620) NEB SCH ×2 (02:00→07:44)
[2018-10-26 06:00] VITALS: BP 135/94
[2018-10-26 06:11] LABS: HEMOGLOBIN 15.7 g/dl (12.0-15.5); MEAN CORPUSCULAR HEMOGLOBIN 29.4 pg (27.0-33.0); MEAN CORPUSCULAR VOLUME 91.8 fl (80.0-96.0); PLATELET COUNT, AUTOMATED 303 10^3/uL (150-450); RED BLOOD COUNT 5.34 10^6/uL (4.00-5.40); WHITE BLOOD COUNT 8.5 10^3/uL (4.0-10.0)
[2018-10-26 06:58] LABS: BLOOD UREA NITROGEN 7 MG/DL (7-18); CARBON DIOXIDE LEVEL 29 MEQ/L (21-32); CHLORIDE LEVEL 100 MEQ/L (98-107); CREATININE FOR GFR 0.84 MG/DL (0.55-1.30); GLOMERULAR FILTRATION RATE > 60.0 (>58); GLUCOSE, FASTING 185 MG/DL (70-100)
--- NOTE | 2018-10-26 07:04 | ECGEPIP ---
Stationary ECG Study [facility] - ED Test Date: 2018-10-25 Pat Name: ESSENCE AGUERO Department: Room: [place] [address] Gender: F Technician Telecommunication Systems: myriam : 1980 Requested By: MATTI MENDEZ Order Number: [id number] Reading MD: Leia Martinez Measurements Intervals [place] Rate: 61 P: 45 DE: 181 QRS: -61 QRSD: 111 T: 36 QT: 428 QTc: 433 Interpretive Statements SINUS RHYTHM PATTERN CONSISTENT WITH PULMONARY DISEASE LEFT ANTERIOR FASCICULAR BLOCK INFERIOR INFARCT, OLD SIMILAR 08/16/18 Electronically Signed On 10-26-2018 7:04:21 EDT by Leia Martinez
[2018-10-26 07:06] LABS: SODIUM LEVEL 138 MEQ/L (136-145)
[2018-10-26] MEDS ORDERED: INFLUENZA QUADRIVALENT PF VACCINE 0.5ML SYRINGE (90686) IM ONE (09:00)
[2018-10-26] MEDS ORDERED: LEVOTHYROXINE 100 MCG (0.1MG) VIAL IV SCH (09:00)
[2018-10-26] MEDS ORDERED: LIDOCAINE 1% SDV INJ 30 ML VIAL As Ordered ONE (09:29)
[2018-10-26] MEDS ORDERED: CETACAINE SPRAY 5GM As Ordered ONE (09:29)
[2018-10-26] MEDS ORDERED: EPINEPHrine 1MG/10ML SYRINGE 1.5IN As Ordered ONE (09:44)
[2018-10-26] MEDS ORDERED: LIDOCAINE VISCOUS 2% SOLN 15ML UDC As Ordered ONE (09:45)
[2018-10-26] MEDS ORDERED: ESMOLOL INJ 100MG/10ML VIAL As Ordered ONE (09:54)
[2018-10-26] MEDS ORDERED: PROPOFOL 200 MG/20 ML VIAL As Ordered ONE (10:05)
[2018-10-26] MEDS ORDERED: SUGAMMADEX SODIUM 500 MG/5 ML VIAL (BRIDION) As Ordered ONE (10:05)
[2018-10-26] MEDS ORDERED: LIDOCAINE 2% INJ 100 MG/5 ML SDV (FOR ANES.) As Ordered ONE (10:05)
[2018-10-26] MEDS ORDERED: MIDAZOLAM INJ 2 MG/2 ML VIAL (J2250) As Ordered ONE (10:05)
[2018-10-26] MEDS ORDERED: ROCURONIUM BROMIDE 50 MG/5 ML VIAL As Ordered ONE (10:05)
[2018-10-26] MEDS ORDERED: KETAMINE HCL 200 MG/20 ML VIAL As Ordered ONE (10:05)
[2018-10-26] MEDS ORDERED: fentaNYL 100 MCG/2 ML INJECTION (J3010) As Ordered ONE (10:05)
[2018-10-26] MEDS ORDERED: NS 1,000 ML IV SCH (10:45)
[2018-10-26] MEDS ORDERED: ONDANSETRON 4MG/2ML VIAL (J2405) IV PRN (10:45)
[2018-10-26] MEDS ORDERED: fentaNYL 100 MCG/2 ML INJECTION (J3010) IV PRN (10:45)
[2018-10-26 11:00] VITALS: BP 120/71
--- NOTE | 2018-10-26 11:48 | CR ---
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 The patient reported that in the past few days she had been feeling like she was developing possible bronchitis with some increasing cough and therefore, had been increasing her suctioning to try to help clear out her mucus. She usually will use a flexible catheter for suctioning deeper into the lung but she does use a rigid Yankauer for suctioning in the stoma area. The patient was using the Yankauer catheter for suctioning when she started having a coughing episode, and she states that she pulled her catheter out quickly and at that time noticed that the plastic ball tip at the end of the catheter had been dislodged. She feels that it possibly had gone into her lungs at that time. She denied however feeling any sensation in her chest. She has not had any increasing cough from her usual. She does not have any increased wheezing. No increased shortness of breath or dyspnea on exertion. She is saturating in the low 90s on room air, which is her usual oxygen saturations around 88-92%. She is not on oxygen at home. She denies any fevers or chills. No chest pain. She had been in her usual state of health prior to this. She does follow with ENT, and she has been noticing more recently that she feels her stoma has been feeling tighter and bone drier as well. Patient does not have a tracheostomy tube in place. She reports that there was possible plan for a dilation of the stoma by ENT PAST MEDICAL HISTORY: 1. History of laryngeal cancer, status post laryngectomy and radiation in 2001, has a stoma. 2. Diabetes. 3. CVA in 2016 with no residual deficits. 5. Bipolar disorder and panic disorder with history of depression. 6. Gastroesophageal reflux disease (GERD). 7. Hyperlipidemia. 8. Asthma. 9. Hypothyroidism. PAST SURGICAL HISTORY: Hysterectomy, cholecystectomy, laryngeal cancer surgery. Soc hx- current smoker, approx 1/2 ppd and occasional marijuana use Family hx- history of DM and HTN HOME MEDICATIONS: - budesonide - buspirone - Cymbalta - gabapentin - glyburide - labetalol - levothyroxine - metformin - omeprazole - as needed DuoNebs - hydroxyzine as needed ALLERGIES: To CEFUROXIME, MOXIFLOXACIN, and BACTRIM. PHYSICAL EXAMINATION: Temperature 96, pulse 55, respirations 20, blood pressure 135/94, oxygen saturation 92-95% on trache collar at 21% FiO2. General: The patient is an obese female. She is sitting in bed, in no apparent distress. Is able to speak with a hoarse squeaking voice. However, is able to speak in complete sentences, is not using any accessory muscles for respiration. HEENT: Normocephalic, atraumatic. Mucous membranes are moist. She is edentulous. Neck is supple. She has no trach tube just a stoma, some evidence of radiation skin changes on the neck and some tightness in the skin as well. Cardiac: Regular rate and rhythm. Normal S1, S2. No murmurs auscultated. Pulmonary: Occasional inspiratory squeaks with some coarse breath sounds bilaterally. No significant wheezing or rhonchi. Abdomen is obese, soft, nontender, nondistended. Positive bowel sounds. Extremities: No peripheral lower extremity bilaterally. Radial pulses are palpable and equal bilaterally. LABORATORIES: WBC 8.5, hemoglobin 15.7, platelets 303. Chemistry: Sodium is 138, potassium 4.0, chloride 100, bicarbonate 29, BUN 7, creatinine 0.84, glucose IS 185. INR was 0.92. CT chest showed evidence of tracheostomy. No evidence of any clear foreign body in the airways. There is some scarring in the apices. There is some atelectasis in the right middle lobe and some faint tree-in bud opacities in the right upper lobe and left upper lobe. There is no pleural effusion. The esophagus appears mildly dilated. There is mildly prominent mediastinal lymph nodes. ASSESSMENT AND PLAN: The patient is a 38-year female with a past medical history of laryngeal cancer, status post laryngectomy and tracheostomy stoma. She previously has had a trache in her stoma, however has not had that for the past few months. She has had some narrowing of her stoma as well as some increasing dryness, and there has been discussions with ENT about dilation so that she can have a tracheostomy tube placed. She is usually on room air and reports her normal oxygen saturations are anywhere from 88-92% on room air. The patient was suctioning herself with a Yankauer in her stoma and had an episode of coughing. The patient had forcefully pulled back on her Yankauer and then noticed that the plastic round tip was not there anymore. There was concern that she may have aspirated the tip of the Yankauer into her lungs. She had a CT chest done, which did not show any evidence of a clear foreign body. There were some atelectases in the right middle lobe and some scarring in apices as well as very faint tree-in bud opacities in the right upper lobe and left upper lobe likely due to some bronchiolitis from mucus plugging in her small airways. She does have a history of asthma, and she does have some occasional inspiratory squeaks and some coarse breath sounds on exam but no significant wheezing currently or rhonchi. I discussed with the patient that we can perform a bronchoscopy to evaluate her airways to see if she does have any retained foreign body in her lungs. Given the size of the tip would not expect it to go into one of her small distal airways, however, that is still possible. If there is nothing found on bronchoscopy, she would just need followup with pulmonary and perhaps a repeat imaging to monitor for any possible complications from retained foreign body such as bronchiectasis, postobstructive infection or pneumonia. Would continue with her home inhalers with DuoNebs as well as with budesonide. The patient is nothing by mouth this morning for bronchoscopy later on in the morning. Patient likely needs some resupply of her suctioning equipment. She has had issues in the past about getting resupply for stoma care. Continue with trach collar at 21% FiO2 and usual tracheostomy care The patient can likely be discharged after bronchoscopy after being appropriately recovered from the moderate sedation. YING
--- NOTE | 2018-10-26 13:22 | ROOR ---
Patient Name: Kathy Bradshaw Procedure Date: 10/26/2018 9:28 AM Date of : 1980 Admit Type: Inpatient Age: 38 Note Status: Finalized Attending MD: Luz Marina Boston MD Procedure: Bronchoscopy Indications: Lung foreign body Providers: Luz Marina Boston MD (Doctor) Referring MD: Jeniffer Gonzalez Md (Referring MD) Requesting Physician: Medicines: See the Anesthesia note for documentation of the administered medications, Lidocaine 1% subglottic space 8 mL Complications: No immediate complications. Estimated blood loss: Minimal Procedure: Pre-Anesthesia Assessment: - Prior to the procedure, a History and Physical was performed, and patient medications and allergies were reviewed. The patient's tolerance of previous anesthesia was also reviewed. The risks and benefits of the procedure and the sedation options and risks were discussed with the patient. All questions were answered, and informed consent was obtained. Prior Anticoagulants: The patient has taken no previous anticoagulant or antiplatelet agents. ASA Grade Assessment: III - A patient with severe systemic disease. After reviewing the risks and benefits, the patient was deemed in satisfactory condition to undergo the procedure. The Bronchoscope was introduced through the tracheostomy and advanced to the tracheobronchial tree of both lungs. The procedure was accomplished without difficulty. The patient tolerated the procedure well. Findings: Respiratory tract: The trachea showed evidence of chronic granulomatous changes. The entire tracheobronchial tree was examined to at least the first subsegmental level. Bronchial mucosa and anatomy are normal; there are no endobronchial lesions. Mucosa was mildly friable and edematous throughout. There were some scant white secretions noted. No evidence of foreign body in the tracheobronchial tree on right or left side to the subsegmental level. Impression: - Lung foreign body - No specimens collected. Recommendation: - Follow up with bronchoscopist in 1 month. Attending Participation: I personally performed the entire procedure. Luz Marina Boston MD 10/26/2018 1:21:41 PM Number of Addenda: 0 Note Initiated On: 10/26/2018 9:28 AM
--- NOTE | 2018-10-26 15:58 | IPNPDOC ---
Date Seen The patient was seen on 10/26/18. Progress Note SUBJECTIVE: Pulm Dr. Boston s/p bronch: no foreign body seen. ok to dc home. no need for steroids. resume steroid inh. fu in office in 1 wk OBJECTIVE: PHYSICAL EXAMINATION: vitals pls see below General: No acute distress, Alert Eyes: Normal sclera, EOMI, LAZARA HENT: Atraumatic, neck supple, moist mucous membranes Cardiovascular: Normal rate, normal rhythm. No murmurs appreciated. Pulmonaryno stridor , no wheezing GI: Soft, nontender, nondistended Skin: Warm and dry Neuro: CN grossly intact. No focal deficits. Strengths equal b/l. Psych: oriented x 3 LABORATORY DATA: See below. IMAGING: CXR- Findings: The mediastinum and cardiac silhouette are normal. The lung mercedes are clear and without acute consolidation, effusion, or pneumothorax. Lung volumes are symmetric. The skeletal structures are intact and normal. No obvious radiodense or radiolucent foreign body is appreciated. Impression: 1. No acute cardiopulmonary process. 2. No obvious foreign body identified. Chest CT- Findings: The patient appears to be status post tracheotomy. The tracheobronchial tree is otherwise the patent and without obvious foreign body identified. The lung mercedes demonstrate minimal chronic biapical scarring and scattered interstitial changes. Small area of fibro atelectatic change along the medial right middle lobe is identified. No consolidation, pleural effusion, obvious mass lesion or pneumothorax. Mildly prominent mediastinal lymph nodes including a precarinal lymph node measuring 12 mm short-axis diameter are nonspecific and stable. Thoracic aorta, pulmonary vasculature and heart/pericardium appear normal. Left common carotid stent is suggested. The osseous structures are intact. Limited upper abdomen demonstrates normal bilateral adrenal glands and evidence of prior cholecystectomy. Impression: 1. Chronic-appearing changes. No obvious consolidation or acute process appreciated. 2. Evidence of prior tracheotomy. 3. No obvious foreign body. MICROBIOLOGY: Please see below. ASSESSMENT AND PLAN: : Patient is a 38-year-old female with past medical history of cancer status post tracheostomy and stoma, hypertension, hypothyroidism, diabetes presented to the ER with complaints of dislodging a suction device into her stoma today while she was suctioning her stoma. She presented with no symptoms complaints of no shortness of breath, pain or any discomfort. Saturation remained stable. Imaging in the ER cannot visualize the foreign body. Discussed with Puldavid in ER who will likely bronch patient in AM. Laryngeal cancer status post trach and stoma. with Foreign body aspiration - CT and CXR with no visualization of foreign body, presumed in airway somewhere. - In no respiratory distress, saturations stable. - Pulm consult. hx CVA Foreign body aspiration - CT and CXR with no visualization of foreign body, presumed in airway somewhere. - In no respiratory distress, saturations stable. - Pulm consult. DM - Hold home oral meds. - Accuchecks and ISS. Hypothyroid - Hold home meds now. Asthma - Duonebs PRN Patient is high risk due to foreign body obstruction VS, I&O, 24H, Fishbone Vital Signs/I&O Vital Signs Date Time Temp Pulse Resp B/P (MAP) Pulse Ox O2 Delivery O2 Flow Rate FiO2 10/26/18 06:00 96.0 55 20 135/94 (108) 91 6.0 10/26/18 00:30 21 10/25/18 22:53 Trach Collar I&O- Last 24 Hours up to 6 AM 10/26/18 06:00 Intake Total 375 ml Output Total 700 ml Balance -325 ml Laboratory Data 24H LABS Laboratory Tests 2 10/25/18 20:50: Nucleated Red Blood Cells % (auto) 0.0, Prothrombin Time 12.5, Prothromb Time International Ratio 0.92, Anion Gap 7L, Glomerular Filtration Rate > 60.0, Calcium Level 9.0, Aspartate Amino Transf (AST/SGOT) 24, Alanine A minotransferase (ALT/SGPT) 33, Alkaline Phosphatase 89, Total Bilirubin 0.3, Direct Bilirubin < 0.1, Total Protein 7.2, Albumin 3.8, Albumin/Globulin Ratio 1.12 10/26/18 00:07: Bedside Glucose (Misc Panel) 161H 10/26/18 04:19: Bedside Glucose (Misc Panel) 177H 10/26/18 05:42: Nucleated Red Blood Cells % (auto) 0.0, Anion Gap 9, Glomerular Filtration Rate > 60.0, Calcium Level 8.0L, Blood Urea Nitrogen 7, Creatinine 0.84, Sodium Level 138, Potassium Level 4.0, Chloride Level 100, Carbon Dioxide Level 29 10/26/18 07:42: Bedside Glucose (Misc Panel) 156H CBC/BMP Laboratory Tests 10/25/18 20:50 Red Blood Count 5.47 H, Mean Corpuscular Volume 91.0, Mean Corpuscular Hemoglobin 29.6, Mean Corpuscular Hemoglobin Concent 32.5, Red Cell Distribution Width 14.0 10/26/18 05:42 Red Blood Count 5.34, Mean Corpuscular Volume 91.8, Mean Corpuscular Hemoglobin 29.4, Mean Corpuscular Hemoglobin Concent 32.0, Red Cell Distribution Width 14.1, Calcium Level 8.0 L JEFE MARTINEZ MD Oct 26, 2018 08:12
--- NOTE | 2018-10-26 16:03 | DS.PDOC ---
Discharge Summary General Date of Admission Oct 25, 2018 at 22:52 Date of Discharge october 26, 2018 Discharge Summary CONSULTANTS: PULM: DR. BOSTON PROCEDURE: BRONCHOSCOPY 10/26/18 DISCHARGE DIAGNOSES: DISLODGED TRACHEOSTOMY SUCTION NO FOREIGN BODY VISUALIZED ON CT CHEST OR BRONCHOSCOPY Laryngeal cancer status post trach and stoma. with Foreign body aspiration hx CVA possible Foreign body aspiration rule out by bronch DM Hypothyroid Asthma DISCHARGE MEDS:PLS SEE BELOW DISCHARGE INSTRUCTIONS; PT TO CALL PCP AND DR. BOSTON FOR FU APPT IN 5-7 DAYS. HISTORY OF PRESENTING ILLNESS: : Patient is a 38-year-old female with past medical history of cancer status post tracheostomy and stoma, hypertension, hypothyroidism, diabetes presented to the ER with complaints of dislodging a suction device into her stoma today while she was suctioning her stoma. She presented with no symptoms complaints of no shortness of breath, pain or any discomfort. Saturation remained stable. Imaging in the ER cannot visualize the foreign body. Discussed with Pulm in ER who will likely bronch patient . HOSPITAL COURSE: Laryngeal cancer status post trach and stoma. with Foreign body aspiration - CT and CXR with no visualization of foreign body, presumed in airway somewhere. - In no respiratory distress, saturations stable. - Pulm consult. Pulm Dr. Boston s/p bronch: no foreign body seen. ok to dc home. no need for steroids. resume steroid inh. fu in office in 1 wk hx CVA Foreign body aspiration - CT and CXR with no visualization of foreign body, presumed in airway somewhere. - In no respiratory distress, saturations stable. - Pulm consult. DM - Hold home oral meds. - Accuchecks and ISS. Hypothyroid - Hold home meds now. Asthma - Duonebs PRN DISCHARGE PHYSICAL EXAMINATION: vitals pls see below General: No acute distress, Alert Eyes: Normal sclera, EOMI, LAZARA HENT: Atraumatic, neck supple, moist mucous membranes Cardiovascular: Normal rate, normal rhythm. No murmurs appreciated. Pulmonaryno stridor , no wheezing GI: Soft, nontender, nondistended Skin: Warm and dry Neuro: CN grossly intact. No focal deficits. Strengths equal b/l. Psych: oriented x 3 LABORATORY DATA: See below. IMAGING: CXR- Findings: The mediastinum and cardiac silhouette are normal. The lung mercedes are clear and without acute consolidation, effusion, or pneumothorax. Lung volumes are symmetric. The skeletal structures are intact and normal. No obvious radiodense or radiolucent foreign body is appreciated. Impression: 1. No acute cardiopulmonary process. 2. No obvious foreign body identified. Chest CT- Findings: The patient appears to be status post tracheotomy. The tracheobronchial tree is otherwise the patent and without obvious foreign body identified. The lung mercedes demonstrate minimal chronic biapical scarring and scattered interstitial changes. Small area of fibro atelectatic change along the medial right middle lobe is identified. No consolidation, pleural effusion, obvious mass lesion or pneumothorax. Mildly prominent mediastinal lymph nodes including a precarinal lymph node measuring 12 mm short-axis diameter are nonspecific and stable. Thoracic aorta, pulmonary vasculature and heart/pericardium appear normal. Left common carotid stent is suggested. The osseous structures are intact. Limited upper abdomen demonstrates normal bilateral adrenal glands and evidence of prior cholecystectomy. Impression: 1. Chronic-appearing changes. No obvious consolidation or acute process appreciated. 2. Evidence of prior tracheotomy. 3. No obvious foreign body. MICROBIOLOGY: Please see below. TIME SPENT ON DISCHARGE: 30 MIN Vital Signs/I&Os Vital Signs Date Time Temp Pulse Resp B/P (MAP) Pulse Ox O2 Delivery O2 Flow Rate FiO2 10/26/18 11:00 96.6 56 20 120/71 (87) 91 6.0 10/26/18 10:25 28 10/25/18 22:53 Trach Collar I&O- Last 24 Hours up to 6 AM 10/26/18 06:00 Intake Total 375 ml Output Total 700 ml Balance -325 ml Laboratory Data Labs 24H Laboratory Tests 2 10/25/18 20:50: Nucleated Red Blood Cells % (auto) 0.0, Prothrombin Time 12.5, Prothromb Time International Ratio 0.92, Anion Gap 7L, Glomerular Filtration Rate > 60.0, Calcium Level 9.0, Aspartate Amino Transf (AST/SGOT) 24, Alanine Ami notransferase (ALT/SGPT) 33, Alkaline Phosphatase 89, Total Bilirubin 0.3, Direct Bilirubin < 0.1, Total Protein 7.2, Albumin 3.8, Albumin/Globulin Ratio 1.12 10/26/18 00:07: Bedside Glucose (Misc Panel) 161H 10/26/18 04:19: Bedside Glucose (Misc Panel) 177H 10/26/18 05:42: Nucleated Red Blood Cells % (auto) 0.0, Anion Gap 9, Glomerular Filtration Rate > 60.0, Calcium Level 8.0L, Blood Urea Nitrogen 7, Creatinine 0.84, Sodium Level 138, Potassium Level 4.0, Chloride Level 100, Carbon Dioxide Level 29 10/26/18 07:42: Bedside Glucose (Misc Panel) 156H 10/26/18 10:35: Bedside Glucose (Misc Panel) 153H 10/26/18 11:20: Bedside Glucose (Misc Panel) 132H CBC/BMP Laboratory Tests 10/25/18 20:50 Red Blood Count 5.47 H, Mean Corpuscular Volume 91.0, Mean Corpuscular Hemoglobin 29.6, Mean Corpuscular Hemoglobin Concent 32.5, Red Cell Distribution Width 14.0 10/26/18 05:42 Red Blood Count 5.34, Mean Corpuscular Volume 91.8, Mean Corpuscular Hemoglobin 29.4, Mean Corpuscular Hemoglobin Concent 32.0, Red Cell Distribution Width 14.1, Calcium Level 8.0 L FSBS Laboratory Tests Test 10/26/18 00:07 10/26/18 04:19 10/26/18 07:42 10/26/18 10:35 Range/Units Bedside Glucose (Misc Panel) 161 177 156 153 70-105 MG/DL Test 10/26/18 11:20 Range/Units Bedside Glucose (Misc Panel) 132 70-105 MG/DL Discharge Medications Scheduled Budesonide (Budesonide) 0.5 Mg/2 Ml Neb, 1 VIAL NEB BID, (Reported) Buspirone HCl (Buspirone HCl) 10 Mg Tab, 10 MG PO QHS, (Reported) Duloxetine Hcl (Cymbalta) 60 Mg Cap, 60 MG PO DAILY, (Reported) Gabapentin (Gabapentin) 600 Mg Tab, 600 MG PO TID, (Reported) Glyburide (Glyburide) 5 Mg Tab, 5 MG PO DAILY, (Reported) Labetalol HCl (Labetalol HCl) 100 Mg Tab, 100 MG PO BID, (Reported) Levothyroxine Sodium (Levoxyl) 200 Mcg Tab, 200 MCG PO DAILY, (Reported) 225MCG TOTAL DAILY Levothyroxine Sodium (Levoxyl) 25 Mcg Tab, 25 MCG PO DAILY, (Reported) 225MCG TOTAL DAILY Metformin Hydrochloride (Metformin HCl) 1,000 Mg Tab, 1,000 MG PO BID, (Reported) Omeprazole (Omeprazole) 40 Mg Cap, 40 MG PO DAILY, (Reported) Scheduled PRN Albuterol/Ipratropium (Ipratropium [place]/Albut 0.5-2.5 (3) mg/3Ml) 1 Jah Jah, 1 JAH INH QID PRN for SHORTNESS OF BREATH, (Reported) Hydroxyzine HCl (Hydroxyzine HCl) 10 Mg Tab, 10 MG PO QID PRN for ANXIETY/AGITATION, (Reported) Allergies Coded Allergies: cefuroxime (Verified Allergy, Intermediate, RASH/HIVES, 10/25/18) moxifloxacin (Verified Allergy, Intermediate, HIVES, 10/25/18) sulfamethoxazole (Verified Allergy, Intermediate, HIVES, 10/25/18) trimethoprim (Verified Allergy, Intermediate, HIVES, 10/25/18) JEFE MARTINEZ MD Oct 26, 2018 16:03
[2018-10-27] MEDS ORDERED: INFLUENZA QUADRIVALENT PF VACCINE 0.5ML SYRINGE (90686) IM ONE (09:00)
== END 2018-10-26 12:23 | disposition home or self-care (01) ==
LOC: M ED 19:20 → M ED INP 22:52 → M MSPAV 23:58
PROVIDERS: ADMIT Student in an Organized Health Care Education/Training Program; ATTEND General Practice
DX: J95.09 Other tracheostomy complication (principal); C32.9 Malignant neoplasm of larynx, unspecified; Z86.73 Personal history of transient ischemic attack (TIA), and cerebral infarction without residual deficits; E11.9 Type 2 diabetes mellitus without complications; E03.9 Hypothyroidism, unspecified; J45.909 Unspecified asthma, uncomplicated; Z79.4 Long term (current) use of insulin; Z79.84 Long term (current) use of oral hypoglycemic drugs; Z79.899 Other long term (current) drug therapy; Z88.1 Allergy status to other antibiotic agents; L40.8 Other psoriasis
CPT/HCPCS: 31615; 36415; 71046; 71250; 80048; 80076; 85027; 85610; 93005; 94640; 96361; 96374; 99284; J2250; J3010

== ENCOUNTER → 2018-11-18 | Outpatient (REF) | payer OTHER ==
[~2018-11-18] MED LIST changes: +BUDE0.5S6 NEB; -INDO50CA PO; +INDO50CA11 PO; +ZITH200S PO
== END ==
LOC: M LAB REF 16:44
PROVIDERS: ATTEND Family Medicine Addiction Medicine
DX: E89.0 Postprocedural hypothyroidism (principal)

== ENCOUNTER 2018-11-22 21:44 | Emergency (ER) | payer OTHER ==
[~2018-11-22] VITALS: Ht 180.3 cm; Wt 130.4 kg
[~2018-11-22 21:44] MED LIST changes: -ZITH200S PO
[2018-11-22] MEDS ORDERED: AZITHROMYCIN 200MG/5ML *ED ONLY* ORAL SYRINGE PO ONE (23:15)
[2018-11-22] MEDS ORDERED: GI COCKTAIL 50ML BTL(HYOSCYAMINE/MAALOX/LIDOCAINE VISCOUS)(1:3:1) PO ONE (23:15)
[2018-11-22] MEDS ORDERED: methylPREDNISolone SUSP 40 MG/ML (DEPO-medrol) VIAL (J1030) IM ONE (23:15)
[2018-11-22] MEDS ORDERED: ZITH200S PO (23:16)
[2018-11-23 00:21] VITALS: BP 132/74
== END 2018-11-23 00:22 | disposition home or self-care (01) ==
LOC: M ED 21:44
DX: J04.10 Acute tracheitis without obstruction (principal); Z79.84 Long term (current) use of oral hypoglycemic drugs; Z79.899 Other long term (current) drug therapy; Z88.1 Allergy status to other antibiotic agents; Z88.8 Allergy status to other drugs, medicaments and biological substances
CPT/HCPCS: 87070; 87077; 87186; 87205; 96372; 99284; J1030

== ENCOUNTER 2018-12-02 00:26 | Emergency (ER) | payer OTHER ==
[~2018-12-02] VITALS: Ht 180.3 cm; Wt 124.5 kg
[~2018-12-02 00:26] MED LIST changes: +ZITH200S PO
[2018-12-02 01:42] LABS: BASO # 0.1 10^3/uL (0.0-0.2); BASO % 0.7 % (0.0-1.0); EOS # 0.4 10^3/uL (0.0-0.50); EOS % 3.5 % (0.0-3.0); HEMATOCRIT 48.4 % (36.0-47.0); HEMOGLOBIN 15.8 g/dl (12.0-15.5); LYMPH # 3.1 10^3/uL (1.5-4.5); LYMPH % 29.1 % (24.0-44.0); MEAN CORPUSCULAR HEMOGLOBIN 29.9 pg (27.0-33.0); MEAN CORPUSCULAR HGB CONC 32.6 g/dl (32.0-36.5); MEAN CORPUSCULAR VOLUME 91.7 fl (80.0-96.0); MONO # 0.9 10^3/uL (0.0-0.8); MONO % 8.8 % (0.0-5.0); NEUTROPHILS # 6.1 10^3/uL (1.8-7.7); NEUTROPHILS % 57.6 % (36.0-66.0); PLATELET COUNT, AUTOMATED 256 10^3/uL (150-450); RED BLOOD COUNT 5.28 10^6/uL (4.00-5.40); WHITE BLOOD COUNT 10.5 10^3/uL (4.0-10.0)
[2018-12-02] MEDS ORDERED: NS 1,000 ML IV ONE (01:45)
[2018-12-02 01:48] LABS: PROTHROMBIN TIME 12.2 SECONDS (12.1-14.4)
[2018-12-02 01:49] LABS: PARTIAL THROMBOPLASTIN TIME 29.7 SECONDS (25.4-37.6)
[2018-12-02 01:51] LABS: D-DIMER QUANT < 270 ng/ml (<500)
[2018-12-02 02:03] LABS: ERYTHROCYTE SEDIMENTATION RATE 3 mm/hr (0-20)
[2018-12-02 03:08] LABS: ALBUMIN 3.8 GM/DL (3.2-5.2); ALT/SGPT 119.99999 U/L (12-78); BILIRUBIN,DIRECT < 0.1 MG/DL (0.0-0.2); BILIRUBIN,TOTAL 0.5 MG/DL (0.2-1.0); BLOOD UREA NITROGEN 13 MG/DL (7-18); C REACTIVE PROTEIN QUANTITATIV 1.19 MG/DL (0.00-0.30); CALCIUM LEVEL 8.6 MG/DL (8.5-10.1); CARBON DIOXIDE LEVEL 28 MEQ/L (21-32); CHLORIDE LEVEL 95 MEQ/L (98-107); CK-MB VALUE MASS < 1.0 NG/ML (<3.6); CPK CREATINE PHOSPHOKINASE 95 U/L (26-192); CREATININE FOR GFR 0.77 MG/DL (0.55-1.30); GLOMERULAR FILTRATION RATE > 60.0 (>58); GLUCOSE, FASTING 300 MG/DL (70-100); LIPASE 198 U/L (73-393); MB/CK RELATIVE INDEX 1.05 (< OR =4); POTASSIUM SERUM 4.3 MEQ/L (3.5-5.1); SODIUM LEVEL 131 MEQ/L (136-145); TOTAL PROTEIN 7.4 GM/DL (6.4-8.2); TROPONIN I < 0.02 NG/ML (< 0.10)
[2018-12-02] MEDS ORDERED: AUGMENTIN 875 MG TAB PO ONE (03:15)
[2018-12-02] MEDS ORDERED: ACETAMINOPHEN 500 MG TAB PO ONE (03:15)
[2018-12-02] MEDS ORDERED: AUGM500T34 PO (03:17)
[2018-12-02 03:48] VITALS: BP 128/76
--- NOTE | 2018-12-02 07:25 | ECGEPIP ---
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
== END 2018-12-02 03:53 | disposition home or self-care (01) ==
LOC: M ED 00:26
DX: L02.221 Furuncle of abdominal wall (principal); R07.9 Chest pain, unspecified; J44.9 Chronic obstructive pulmonary disease, unspecified; J45.909 Unspecified asthma, uncomplicated; E11.9 Type 2 diabetes mellitus without complications; I10 Essential (primary) hypertension; E78.5 Hyperlipidemia, unspecified; K21.9 Gastro-esophageal reflux disease without esophagitis; E03.9 Hypothyroidism, unspecified; F33.9 Major depressive disorder, recurrent, unspecified; F41.9 Anxiety disorder, unspecified; F42.9 Obsessive-compulsive disorder, unspecified; Z93.0 Tracheostomy status; Z88.1 Allergy status to other antibiotic agents; Z88.2 Allergy status to sulfonamides; Z88.8 Allergy status to other drugs, medicaments and biological substances; F17.210 Nicotine dependence, cigarettes, uncomplicated

== ENCOUNTER 2018-12-09 16:00 | Emergency (ER) | payer OTHER ==
[~2018-12-09] VITALS: Ht 180.3 cm; Wt 120.7 kg
[~2018-12-09 16:00] MED LIST changes: -TRAZ-160 PO; +TRAZ-252 PO
[2018-12-09] MEDS ORDERED: ALBUTEROL SULFATE 2.5 MG/0.5 ML INH NEB SOLN INH ONE (17:30)
[2018-12-09] MEDS ORDERED: IPRATROPIUM 0.5MG/ALBUTEROL 2.5MG INH SOL UD 3ML (DUONEB)(J7620) NEB ONE (17:30)
[2018-12-09 17:35] LABS: BASO # 0.1 10^3/uL (0.0-0.2); BASO % 0.7 % (0.0-1.0); EOS # 0.3 10^3/uL (0.0-0.50); EOS % 2.4 % (0.0-3.0); HEMATOCRIT 54.3 % (36.0-47.0); HEMOGLOBIN 18.2 g/dl (12.0-15.5); LYMPH # 2.6 10^3/uL (1.5-4.5); LYMPH % 23.7 % (24.0-44.0); MEAN CORPUSCULAR HEMOGLOBIN 30.2 pg (27.0-33.0); MEAN CORPUSCULAR HGB CONC 33.5 g/dl (32.0-36.5); NEUTROPHILS % 63.7 % (36.0-66.0); PLATELET COUNT, AUTOMATED 316 10^3/uL (150-450); RED BLOOD COUNT 6.03 10^6/uL (4.00-5.40)
--- NOTE | 2018-12-09 17:49 | REP ---
Chest two views HISTORY: Cough Comparison: 10/25/2018 The lungs are clear. The heart is normal in size. The pulmonary vasculature is normal in appearance. The bony structure is intact. IMPRESSION: No acute disease. Electronically Signed by Oswaldo Valverde MD 12/09/2018 05:40 P
[2018-12-09 17:51] LABS: INR 0.97
[2018-12-09] MEDS ORDERED: LEVO200T4 PO (17:54)
[2018-12-09 18:05] LABS: BLOOD UREA NITROGEN 16 MG/DL (7-18); CALCIUM LEVEL 9.4 MG/DL (8.5-10.1); CARBON DIOXIDE LEVEL 27 MEQ/L (21-32); CHLORIDE LEVEL 96 MEQ/L (98-107); CK-MB VALUE MASS < 1.0 NG/ML (<3.6); CPK CREATINE PHOSPHOKINASE 54 U/L (26-192); GLOMERULAR FILTRATION RATE > 60.0 (>58); GLUCOSE, FASTING 240 MG/DL (70-100); MB/CK RELATIVE INDEX 1.85 (< OR =4); NT-PRO BNP 13 PG/ML (<125); POTASSIUM SERUM 4.3 MEQ/L (3.5-5.1); SODIUM LEVEL 132 MEQ/L (136-145); TROPONIN I < 0.02 NG/ML (< 0.10)
[2018-12-09 18:14] LABS: D-DIMER QUANT < 270 ng/ml (<500)
[2018-12-09 19:49] VITALS: BP 178/89
[2018-12-09] MEDS ORDERED: CYMB1CAP5 PO (19:54)
[2018-12-09] MEDS ORDERED: PRED20TA PO (19:54)
[2018-12-09] MEDS ORDERED: ATIV1TAB10 PO (19:54)
[2018-12-09] MEDS ORDERED: predniSONE 20 MG TAB PO ONE (20:00)
[2018-12-09] MEDS ORDERED: LORazepam 0.5 MG TAB PO ONE (20:00)
--- NOTE | 2018-12-10 06:13 | ECGEPIP ---
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
== END 2018-12-09 20:14 | disposition home or self-care (01) ==
LOC: EDBD 16:00 → M ED 16:00
DX: J44.1 Chronic obstructive pulmonary disease with (acute) exacerbation (principal); I44.4 Left anterior fascicular block; E11.9 Type 2 diabetes mellitus without complications; E03.9 Hypothyroidism, unspecified; Z85.818 Personal history of malignant neoplasm of other sites of lip, oral cavity, and pharynx; Z72.0 Tobacco use; Z79.84 Long term (current) use of oral hypoglycemic drugs; Z79.899 Other long term (current) drug therapy; Z88.8 Allergy status to other drugs, medicaments and biological substances

== ENCOUNTER 2018-12-16 12:08 | Emergency (ER) | payer OTHER ==
[~2018-12-16] VITALS: Ht 180.3 cm; Wt 123.6 kg
[~2018-12-16 12:08] MED LIST changes: +ATIV1TAB10 PO; +CYMB1CAP5 PO
[2018-12-16] MEDS ORDERED: LORA0.5T11 (12:15)
--- NOTE | 2018-12-16 14:54 | REP ---
Clinical: Acute right shoulder pain . Technique: Internal rotation, external rotation, and Y view. Findings: No acute fracture or dislocation. The acromioclavicular and glenohumeral joints are intact. No periarticular calcifications or degenerative changes are appreciated. Sub acromial space is normal. Surrounding soft tissues are unremarkable. Impression: Normal right shoulder radiographs. Electronically Signed by Micha Maldonado MD 12/16/2018 02:46 P
--- NOTE | 2018-12-16 14:55 | REP ---
Clinical: Neck and right shoulder pain. Technique: AP, lateral, flexion/extension, open-mouth, and bilateral oblique views of the cervical spine. Findings: Alignment and lordosis maintained. Vertebral bodies are intact. No acute fracture / compression injury or subluxation. No significant degenerative changes are appreciated. C1-C2 articulation and odontoid process are normal. Neural foramen are patent. Impression: Normal age-appropriate cervical spine radiographs. Electronically Signed by Micha Maldonado MD 12/16/2018 02:47 P
--- NOTE | 2018-12-16 14:55 | REP ---
CT Head without contrast HISTORY: Right arm paresthesia COMPARISON: 08/16/2018 There is no intraparenchymal hemorrhage, acute infarct, mass or midline shift. The ventricular system is normal in appearance. There is no extra cerebral collection. There is no fracture. The visualized sinuses are clear. IMPRESSION: There is no intracranial lesion. Electronically Signed by Oswaldo Valverde MD 12/16/2018 02:47 P
[2018-12-16] MEDS ORDERED: ULTR50TA8 PO (15:02)
[2018-12-16] MEDS ORDERED: LIDO5DIS41 TD (15:02)
[2018-12-16 15:11] VITALS: BP 155/80
--- NOTE | 2018-12-16 21:08 | ECGEPIP ---
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 : 1980 Requested By: CLAUDETTE MYAA PA-C. Order Number: [id number] Reading MD: Leia Martinez Measurements Intervals [place] Rate: 56 P: 59 [place]: 164 QRS: QRSD: 103 T: 31 QT: 412 QTc: 398 Interpretive Statements SINUS BRADYCARDIA LEFT ANTERIOR FASCICULAR BLOCK PRWP DECREASED RATE 12/09/18 Electronically Signed on 12-16-2018 21:08:26 EDT by Leia Martinez
== END 2018-12-16 15:12 | disposition home or self-care (01) ==
LOC: M ED 12:08
DX: G89.29 Other chronic pain (principal); M25.511 Pain in right shoulder; I44.0 Atrioventricular block, first degree; E11.9 Type 2 diabetes mellitus without complications; Z79.899 Other long term (current) drug therapy; Z79.890 Hormone replacement therapy; Z79.84 Long term (current) use of oral hypoglycemic drugs

== ENCOUNTER → 2018-12-17 | Outpatient (REF) | payer OTHER ==
[~2018-12-17] MED LIST changes: +LIDO5DIS41 TD; +LORA0.5T11; +TRAZ-160 PO; -TRAZ-252 PO; +ULTR50TA8 PO
== END ==
LOC: M LAB REF 18:36
PROVIDERS: ATTEND Family Medicine Addiction Medicine
DX: J02.9 Acute pharyngitis, unspecified (principal)

== ENCOUNTER 2018-12-19 15:49 | Emergency (ER) | payer OTHER ==
[~2018-12-19 15:49] MED LIST changes: -TRAZ-160 PO; +TRAZ-252 PO
[2018-12-19 16:16] VITALS: O2SAT 95
--- NOTE | 2018-12-19 16:45 | REP ---
Chest x-ray: Two views. History: Short of breath. Comparison chest x-ray: December 09, 2018. Findings: The lungs are symmetrically aerated and free of focal infiltrate. There is some chronic pleural thickening or fissural thickening on the right in the upper lung field unchanged from prior studies including August 16, 2018. This is visible on CT study from June 08, 2018 and is unchanged. No infiltrate is seen. Pleural angles are sharp. Heart size is normal. No significant bony abnormality is seen. Impression: No acute disease. Electronically Signed by Arie Brady MD 12/19/2018 04:36 P
[2018-12-19] MEDS ORDERED: ACETYLCYSTEINE 10% 30 ML VIAL INH ONE (17:45)
[2018-12-19] MEDS ORDERED: ACETYLCYSTEINE 6000 MG/30 ML *IV* VIAL (J0132) As Ordered ONE (17:51)
--- NOTE | 2018-12-19 18:18 | REP ---
Clinical: Possible foreign body. Technique: Axial noncontrast images from the thoracic inlet to the upper abdomen with coronal and sagittal re-formations. Comparison: 11/04/2018. Findings: Evidence of prior tracheostomy is again appreciated. The airway is patent and there is no evidence for tracheobronchial stenosis/occlusion or foreign body. Visualized esophagus is patent and without foreign body or obvious abnormality. Mediastinum demonstrates normal thoracic aorta, pulmonary vasculature and heart/pericardium. No axillary, hilar, or mediastinal adenopathy is appreciated. The bilateral lung mercedes are relatively well aerated and demonstrate minimal chronic interstitial changes which remain stable. No acute consolidation, significant nodule, or mass lesion. No pleural effusion. No pneumothorax. Osseous structures are intact. Upper abdomen demonstrates normal bilateral adrenal glands and evidence for prior cholecystectomy. Impression: No evidence for foreign body. No acute mediastinal or pleuroparenchymal process. Prior tracheostomy and cholecystectomy noted. Electronically Signed by Micha Maldonado MD 12/19/2018 06:09 P
[2018-12-19 18:52] VITALS: BP 134/88
== END 2018-12-19 18:53 | disposition home or self-care (01) ==
LOC: EDBD 15:49 → M ED 15:49
DX: K11.7 Disturbances of salivary secretion (principal); E11.9 Type 2 diabetes mellitus without complications; E03.9 Hypothyroidism, unspecified; Z93.0 Tracheostomy status; Z79.899 Other long term (current) drug therapy; Z79.890 Hormone replacement therapy; Z88.1 Allergy status to other antibiotic agents; Z88.2 Allergy status to sulfonamides; Z88.8 Allergy status to other drugs, medicaments and biological substances; F17.210 Nicotine dependence, cigarettes, uncomplicated

== ENCOUNTER 2018-12-27 17:32 | Emergency (ER) | payer OTHER ==
[~2018-12-27] VITALS: Ht 180.3 cm; Wt 125.0 kg
[2018-12-27 17:33] VITALS: BP 144/91
== END 2018-12-27 18:17 | disposition home or self-care (01) ==
LOC: M ED 17:32
DX: J39.8 Other specified diseases of upper respiratory tract (principal); F41.9 Anxiety disorder, unspecified; E11.9 Type 2 diabetes mellitus without complications; I10 Essential (primary) hypertension; E07.9 Disorder of thyroid, unspecified; F17.210 Nicotine dependence, cigarettes, uncomplicated; Z88.8 Allergy status to other drugs, medicaments and biological substances; Z88.2 Allergy status to sulfonamides; Z88.1 Allergy status to other antibiotic agents; Z85.818 Personal history of malignant neoplasm of other sites of lip, oral cavity, and pharynx; Z79.899 Other long term (current) drug therapy; Z79.84 Long term (current) use of oral hypoglycemic drugs

== ENCOUNTER 2019-01-06 22:51 | Emergency (ER) | payer OTHER ==
[~2019-01-06] VITALS: Ht 180.3 cm; Wt 123.6 kg
[2019-01-06] MEDS ORDERED: methylPREDNISolone INJ 125 MG/2 ML VIAL (J2930) IV ONE (23:30)
[2019-01-06] MEDS: IPRATROPIUM 0.5MG/ALBUTEROL 2.5MG INH SOL UD 3ML (DUONEB)(J7620) NEB PRN (23:45)
[2019-01-07 00:28] LABS: BASO # 0.1 10^3/uL (0.0-0.2); BASO % 0.7 % (0.0-1.0); BLOOD UREA NITROGEN 13 MG/DL (7-18); CALCIUM LEVEL 8.6 MG/DL (8.5-10.1); CARBON DIOXIDE LEVEL 29 MEQ/L (21-32); CHLORIDE LEVEL 96 MEQ/L (98-107); CK-MB VALUE MASS < 1.0 NG/ML (<3.6); CPK CREATINE PHOSPHOKINASE 69 U/L (26-192); CREATININE FOR GFR 0.63 MG/DL (0.55-1.30); EOS # 0.2 10^3/uL (0.0-0.50); EOS % 3.1 % (0.0-3.0); GLOMERULAR FILTRATION RATE > 60.0 (>58); GLUCOSE, FASTING 225 MG/DL (70-100); HEMATOCRIT 45.7 % (36.0-47.0); HEMOGLOBIN 15.3 g/dl (12.0-15.5); LYMPH # 2.7 10^3/uL (1.5-4.5); LYMPH % 39.7 % (24.0-44.0); MB/CK RELATIVE INDEX 1.44 (< OR =4); MEAN CORPUSCULAR HEMOGLOBIN 30.2 pg (27.0-33.0); MEAN CORPUSCULAR HGB CONC 33.5 g/dl (32.0-36.5); MEAN CORPUSCULAR VOLUME 90.3 fl (80.0-96.0); MONO # 0.7 10^3/uL (0.0-0.8); MONO % 9.7 % (0.0-5.0); NEUTROPHILS # 3.1 10^3/uL (1.8-7.7); NEUTROPHILS % 46.5 % (36.0-66.0); PLATELET COUNT, AUTOMATED 274 10^3/uL (150-450); RED BLOOD COUNT 5.06 10^6/uL (4.00-5.40); SODIUM LEVEL 133 MEQ/L (136-145); TROPONIN I < 0.02 NG/ML (< 0.10); WHITE BLOOD COUNT 6.7 10^3/uL (4.0-10.0)
[2019-01-07] MEDS ORDERED: ISOVUE-370 76% 100ML VIAL (Q9967) As Ordered ONE (01:07)
[2019-01-07] MEDS: IPRATROPIUM 0.5MG/ALBUTEROL 2.5MG INH SOL UD 3ML (DUONEB)(J7620) NEB PRN ×2 (01:32→02:03)
--- NOTE | 2019-01-07 02:33 | REPVR ---
EXAM: CT Angiography Chest With Contrast EXAM DATE/TIME: 01/07/2019 1:02 AM CLINICAL HISTORY: 38 years old, female; Shortness of breath; Additional Info: SOB TECHNIQUE: Imaging protocol: Axial computed tomographic angiography images of the chest with intravenous contrast using CT angiography protocol. Coronal and sagittal reformatted images were created and reviewed. 3D rendering: MIP reconstructed images were created and reviewed. Radiation optimization: All CT scans at this facility use at least one of these dose optimization techniques: automated exposure control; mA and/or kV adjustment per patient size (includes targeted exams where dose is matched to clinical indication); or iterative reconstruction. Contrast material: ISO; Contrast volume: 75 ml; Contrast route: AC; COMPARISON: CT ANGIO CHEST 06/08/2018 10:17 PM FINDINGS: Limitations: Examination is limited by motion artifact. Pulmonary arteries: No large pulmonary embolism. Evaluation of the segmental pulmonary arteries are limited because of motion. Aorta: Unremarkable. No aortic aneurysm. No aortic dissection. Great vessels off aortic arch: Diffuse mild stenosis of the right common carotid artery. Moderate focal stenosis of the origin of the right internal carotid artery. Diffuse moderate stenosis of the proximal left common carotid artery. Severe focal stenosis of the origin of the left internal carotid artery. Left external carotid artery is not visualized and likely occluded. Lungs: Bronchial mucous plugging in the upper lobes and lower lobes. Linear atelectasis in the lingula. Tracheal stoma is patent. Mild biapical fibrosis. Pleural space: Unremarkable. No pneumothorax. No pleural effusion. Heart: Unremarkable. No cardiomegaly. No pericardial effusion. Lymph nodes: Unremarkable. No enlarged lymph nodes. Bones/joints: Unremarkable. No acute fracture. Soft tissues: Unremarkable. IMPRESSION: 1. Limited evaluation. 2. No large pulmonary embolism. Evaluation of the segmental pulmonary arteries are limited because of motion. 3. Severe focal stenosis of the origin of the left internal carotid artery. 4. Moderate focal stenosis of the origin of the right internal carotid artery. 5. Bronchial mucous plugging in the upper lobes and lower lobes. Consistent with bronchitis. 6. Additional findings as described. Electronically signed by: Tha Cuevas On 01/07/2019 02:33:09 AM
[2019-01-07 02:50] VITALS: O2SAT 88
[2019-01-07] MEDS ORDERED: PRED20TA PO (03:20)
[2019-01-07] MEDS ORDERED: MAGICMW SSP (03:21)
[2019-01-07 03:28] VITALS: BP 101/64
--- NOTE | 2019-01-07 10:34 | ED PDOC ---
Post-Departure Follow-Up dr johnson faxed formal report of cta chest for fu Carmen Hernandez MD Jan 07, 2019 10:34
--- NOTE | 2019-01-07 19:26 | ECGEPIP ---
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
== END 2019-01-07 03:35 | disposition home or self-care (01) ==
LOC: M ED 22:51
DX: J45.901 Unspecified asthma with (acute) exacerbation (principal); I65.23 Occlusion and stenosis of bilateral carotid arteries; J98.09 Other diseases of bronchus, not elsewhere classified; E11.9 Type 2 diabetes mellitus without complications; Z85.21 Personal history of malignant neoplasm of larynx; Z86.73 Personal history of transient ischemic attack (TIA), and cerebral infarction without residual deficits; Z72.0 Tobacco use; Z79.84 Long term (current) use of oral hypoglycemic drugs; Z79.899 Other long term (current) drug therapy; Z88.8 Allergy status to other drugs, medicaments and biological substances; Z88.1 Allergy status to other antibiotic agents
CPT/HCPCS: 71275; 80048; 82550; 82553; 84443; 85025; 93005; 93041; 94760; 99285; J2930; Q9967

== ENCOUNTER 2019-10-03 00:19 | Emergency (ER) | payer OTHER, SELFPAY ==
[~2019-10-03] VITALS: Ht 180.3 cm; Wt 119.4 kg
[~2019-10-03 00:19] MED LIST changes: -AZIT500T2 PO; +AZIT500T5 PO; -FENO145T13 PO; +FENO145T7 PO; -INDO50CA11 PO; +INDO50CA91 PO; -LORA0.5T11; +LORA0.5T5; +MAGICMW SSP; +OMEP1CAP73 PO; -OMEP20CA3 PO; -OMEP40CA2 PO; +OMEP40CA97 PO; -SIMV20TA2 PO; +SIMV20TA22 PO
[2019-10-03] MEDS ORDERED: ALBUTEROL SULFATE 2.5 MG/0.5 ML INH NEB SOLN NEB ONE (01:00)
[2019-10-03] MEDS ORDERED: methylPREDNISolone INJ 125 MG/2 ML VIAL (J2930) IV ONE (01:15)
[2019-10-03] MEDS ORDERED: diazePAM 10 MG/2 ML INJ (J3360) IV ONE (01:15)
[2019-10-03] MEDS ORDERED: diazePAM 2 MG TAB PO ONE (01:45)
[2019-10-03 01:54] LABS: BASO # 0.1 10^3/uL (0.0-0.2); BASO % 0.9 % (0.0-1.0); EOS # 0.4 10^3/uL (0.0-0.5); EOS % 3.4 % (0.0-3.0); HEMOGLOBIN 17.2 g/dl (12.0-15.5); LYMPH # 3.4 10^3/uL (1.5-5.0); LYMPH % 29.8 % (24.0-44.0); MEAN CORPUSCULAR HEMOGLOBIN 29.2 pg (27.0-33.0); MEAN CORPUSCULAR HGB CONC 32.5 g/dl (32.0-36.5); MEAN CORPUSCULAR VOLUME 89.8 fl (80.0-96.0); MONO # 0.8 10^3/uL (0.0-0.8); NEUTROPHILS # 6.7 10^3/uL (1.5-8.5); NEUTROPHILS % 58.6 % (36.0-66.0); PLATELET COUNT, AUTOMATED 340 10^3/uL (150-450); WHITE BLOOD COUNT 11.4 10^3/uL (4.0-10.0)
[2019-10-03 02:15] LABS: ERYTHROCYTE SEDIMENTATION RATE 2 mm/hr (0-20)
[2019-10-03 02:33] LABS: ALBUMIN 4.2 GM/DL (3.2-5.2); ALT/SGPT 24 U/L (12-78); BILIRUBIN,DIRECT < 0.1 MG/DL (0.0-0.2); BILIRUBIN,TOTAL 0.3 MG/DL (0.2-1.0); BLOOD UREA NITROGEN 6 MG/DL (7-18); C REACTIVE PROTEIN QUANTITATIV 1.57 MG/DL (0.00-0.30); CALCIUM LEVEL 9.1 MG/DL (8.5-10.1); CARBON DIOXIDE LEVEL 28 MEQ/L (21-32); CHLORIDE LEVEL 97 MEQ/L (98-107); CREATININE FOR GFR 0.92 MG/DL (0.55-1.30); GLOMERULAR FILTRATION RATE > 60.0 (>58); GLUCOSE, FASTING 251 MG/DL (70-100); POTASSIUM SERUM 4.1 MEQ/L (3.5-5.1); SODIUM LEVEL 133 MEQ/L (136-145); TOTAL PROTEIN 7.9 GM/DL (6.4-8.2)
[2019-10-03] MEDS ORDERED: COMPMIS43 XX ×2 (02:42→02:48)
[2019-10-03 02:43] LABS: INFLUENZA A AMPLIFICATION NEGATIVE (NEGATIVE); INFLUENZA B AMPLIFICATION NEGATIVE (NEGATIVE)
[2019-10-03] MEDS ORDERED: BUDE0.5S6 NEB (02:58)
[2019-10-03] MEDS ORDERED: PRED20TA PO (02:58)
[2019-10-03] MEDS ORDERED: AUGM875T28 PO (02:58)
[2019-10-03] MEDS ORDERED: IPRA0.00 NEB (02:58)
[2019-10-03] MEDS ORDERED: AUGMENTIN 875 MG TAB PO ONE (03:00)
[2019-10-03 03:25] VITALS: BP 116/67
--- NOTE | 2019-10-03 12:41 | REP ---
REASON: Dyspnea. COMPARISON: 12/19/2018 TWO-VIEW CHEST: FINDINGS: The superior mediastinal structures are midline. The cardiac silhouette is unremarkable in size, shape, and position. The diaphragmatic surfaces of the lungs are regular, and the costophrenic angles are clear. The pulmonary mercedes are clear. The imaged osseous structures are intact. IMPRESSION: There is no acute cardiopulmonary disease. Unreviewed
== END 2019-10-03 03:27 | disposition home or self-care (01) ==
LOC: M ED 00:19
DX: L03.221 Cellulitis of neck (principal); J45.901 Unspecified asthma with (acute) exacerbation; I10 Essential (primary) hypertension; E78.5 Hyperlipidemia, unspecified; F33.9 Major depressive disorder, recurrent, unspecified; F41.9 Anxiety disorder, unspecified; F42.9 Obsessive-compulsive disorder, unspecified; K21.9 Gastro-esophageal reflux disease without esophagitis; Z79.899 Other long term (current) drug therapy; Z79.890 Hormone replacement therapy; Z88.1 Allergy status to other antibiotic agents; Z88.2 Allergy status to sulfonamides; Z88.8 Allergy status to other drugs, medicaments and biological substances
CPT/HCPCS: 71046; 80048; 80076; 81001; 83605; 85025; 85652; 86140; 87040; 87502; 94640; 96374; 99283; J2930

== ENCOUNTER 2019-11-07 23:42 | Emergency (ER) | payer MEDICAID, SELFPAY ==
[~2019-11-07] VITALS: Ht 180.3 cm; Wt 111.4 kg
[~2019-11-07 23:42] MED LIST changes: +AUGM875T28 PO; +COMPMIS43 XX
--- NOTE | 2019-11-08 00:57 | REPVR ---
PROCEDURE INFORMATION: Exam: CT Head Without Contrast Exam date and time: 11/08/2019 12:30 AM Age: 39 years old Clinical indication: Pain; Headache; Additional info: GRAY TECHNIQUE: Imaging protocol: Computed tomography of the head without contrast. Radiation optimization: All CT scans at this facility use at least one of these dose optimization techniques: automated exposure control; mA and/or kV adjustment per patient size (includes targeted exams where dose is matched to clinical indication); or iterative reconstruction. COMPARISON: CT Head without contrast 12/16/2018 2:20 PM FINDINGS: Brain: There is no evidence of intracranial hemorrhage. No abnormal extra-axial fluid collections are identified. No mass effect or midline shift is seen. Ventricles: Normal. No ventriculomegaly. Bones/joints: Unremarkable. No acute fracture. Sinuses: The visualized sinuses are unremarkable. Mastoid air cells: There is no mastoid effusion detected. Soft tissues: Unremarkable. IMPRESSION: No acute intracranial pathology demonstrated by CT. Electronically signed by: Taylor Bryant On 11/08/2019 00:57:11 AM
[2019-11-08] MEDS ORDERED: traMADol 50 MG TAB PO ONE (01:00)
[2019-11-08] MEDS ORDERED: ONDANSETRON 4 MG ORAL DISINTEGRATING TAB (Q0162 PER 1MG) As Ordered ONE (01:30)
[2019-11-08 01:45] VITALS: BP 211/128
[2019-11-08] MEDS ORDERED: ONDANSETRON 4 MG ORAL DISINTEGRATING TAB (Q0162 PER 1MG) PO ONE (01:45)
== END 2019-11-08 01:47 | disposition home or self-care (01) ==
LOC: M ED 23:42 → EDBD 23:42 → M ED 11-08 01:47
DX: G44.209 Tension-type headache, unspecified, not intractable (principal); J44.9 Chronic obstructive pulmonary disease, unspecified; Z93.0 Tracheostomy status; F17.218 Nicotine dependence, cigarettes, with other nicotine-induced disorders; Z85.818 Personal history of malignant neoplasm of other sites of lip, oral cavity, and pharynx; Z79.51 Long term (current) use of inhaled steroids; Z79.52 Long term (current) use of systemic steroids; Z79.899 Other long term (current) drug therapy; Z88.2 Allergy status to sulfonamides; Z88.8 Allergy status to other drugs, medicaments and biological substances; Z88.1 Allergy status to other antibiotic agents
CPT/HCPCS: 70450; 99284; Q0162

== ENCOUNTER → 2019-11-12 | Outpatient (REF) | payer MEDICAID ==
[2019-11-12 15:23] LABS: BASO # 0.1 10^3/uL (0.0-0.2); BASO % 0.8 % (0.0-1.0); EOS # 0.3 10^3/uL (0.0-0.5); EOS % 1.8 % (0.0-3.0); HEMATOCRIT 53.6 % (36.0-47.0); HEMOGLOBIN 18.3 g/dl (12.0-15.5); LYMPH # 4.4 10^3/uL (1.5-5.0); LYMPH % 28.2 % (24.0-44.0); MEAN CORPUSCULAR HEMOGLOBIN 30.8 pg (27.0-33.0); MEAN CORPUSCULAR HGB CONC 34.1 g/dl (32.0-36.5); MEAN CORPUSCULAR VOLUME 90.2 fl (80.0-96.0); MONO # 1.3 10^3/uL (0.0-0.8); MONO % 8.5 % (0.0-5.0); NEUTROPHILS # 9.4 10^3/uL (1.5-8.5); NEUTROPHILS % 60.3 % (36.0-66.0); PLATELET COUNT, AUTOMATED 384 10^3/uL (150-450); RED BLOOD COUNT 5.94 10^6/uL (4.00-5.40); WHITE BLOOD COUNT 15.6 10^3/uL (4.0-10.0)
[2019-11-12 15:43] LABS: HEMOGLOBIN A1c 8.3 %
[2019-11-12 18:58] LABS: ALBUMIN 4.5 GM/DL (3.2-5.2); ALT/SGPT 30 U/L (12-78); BILIRUBIN,TOTAL 0.4 MG/DL (0.2-1.0); BLOOD UREA NITROGEN 17 MG/DL (7-18); CALCIUM LEVEL 11.2 MG/DL (8.5-10.1); CARBON DIOXIDE LEVEL 27 MEQ/L (21-32); CHLORIDE LEVEL 92 MEQ/L (98-107); CREATININE FOR GFR 0.91 MG/DL (0.55-1.30); FREE T4 0.78 NG/DL (0.76-1.46); GLOMERULAR FILTRATION RATE > 60.0 (>58); GLUCOSE, FASTING 180 MG/DL (70-100); SODIUM LEVEL 129 MEQ/L (136-145); TOTAL T3 < 10.0 NG/DL (60.0-181.0)
[2019-11-13 11:11] LABS: THYROID PEROXIDASE ANTIBODY 29.2 U/ML (<60.0)
[2019-11-13 11:12] LABS: THYROGLOBULIN ANTIBODY 18.4 U/ML (<60.0)
== END ==
LOC: M LAB REF 14:52
PROVIDERS: ATTEND Family Medicine
DX: E89.0 Postprocedural hypothyroidism (principal)

== ENCOUNTER 2019-11-17 21:21 | Inpatient (IN) | payer MEDICAID ==
[~2019-11-17] VITALS: Ht 180.3 cm; Wt 117.7 kg
[~2019-11-17 21:21] MED LIST changes: +GABAPENTIN 300 MG CAP PO SCH; +NICOTINE 21MG/24HR 1 EA TRANSDERMAL TD SCH; +RAMELTEON 8 MG TAB (ROZEREM) PO SCH
[2019-11-17] MEDS ORDERED: NS 1,000 ML IV SCH (21:45)
[2019-11-17] MEDS ORDERED: MORPHINE 2 MG/ML 1ML VIAL (J2270) IV ONE (21:45)
[2019-11-17] MEDS ORDERED: ONDANSETRON 4MG/2ML VIAL IV ONE (21:45)
[2019-11-17 22:36] LABS: HEMATOCRIT 44.6 % (36.0-47.0); HEMOGLOBIN 14.8 g/dl (12.0-15.5); MEAN CORPUSCULAR HEMOGLOBIN 30.3 pg (27.0-33.0); MEAN CORPUSCULAR HGB CONC 33.2 g/dl (32.0-36.5); MEAN CORPUSCULAR VOLUME 91.4 fl (80.0-96.0); PLATELET COUNT, AUTOMATED 277 10^3/uL (150-450); RED BLOOD COUNT 4.88 10^6/uL (4.00-5.40)
[2019-11-17 23:02] LABS: ALBUMIN 3.8 GM/DL (3.2-5.2); ALT/SGPT 41 U/L (12-78); BILIRUBIN,DIRECT < 0.1 MG/DL (0.0-0.2); BILIRUBIN,TOTAL 0.4 MG/DL (0.2-1.0); BLOOD UREA NITROGEN 8 MG/DL (7-18); CALCIUM LEVEL 8.1 MG/DL (8.5-10.1); CARBON DIOXIDE LEVEL 28 MEQ/L (21-32); CHLORIDE LEVEL 100 MEQ/L (98-107); CREATININE FOR GFR 0.76 MG/DL (0.55-1.30); GLOMERULAR FILTRATION RATE > 60.0 (>58); GLUCOSE, FASTING 165 MG/DL (70-100); POTASSIUM SERUM 3.8 MEQ/L (3.5-5.1); SODIUM LEVEL 136 MEQ/L (136-145); TOTAL PROTEIN 6.8 GM/DL (6.4-8.2)
[2019-11-17] MEDS ORDERED: MELO15TA28 PO (23:30)
[2019-11-17] MEDS ORDERED: TRIA1CR80 TOP (23:30)
[2019-11-17] MEDS ORDERED: AMOX875T2 PO (23:30)
[2019-11-17] MEDS ORDERED: DULO30CA9 PO (23:30)
[2019-11-17] MEDS ORDERED: LISI-538 PO (23:30)
[2019-11-17] MEDS ORDERED: CLINDAMYCIN 600 MG in IV 1 EA IV ONE (23:30)
[2019-11-17] MEDS ORDERED: ALB2.5NEB INH (23:30)
[2019-11-17] MEDS ORDERED: FLON1SPR (23:30)
--- NOTE | 2019-11-17 23:33 | IPNPDOC ---
Text Note Date of Service The patient was seen on 11/17/19. NOTE Time of service 11:40 PM Ms. Bradshaw is a 39-year-old with a history of throat cancer status post trach with chronic stoma, asthma, , DM, hypothyroidism history of CVA, anxiety disorder, depression and nicotine dependence who presented with complaints of throat pain. 1. Mild Stoma cellulitis -admit to the medical floor for IV clindamycin & will switch to PO meds tomorrow. Rest per 's H&P VS,Faviobone, I+O VS, Faviobone, I+O Laboratory Tests 11/17/19 22:21 Vital Signs Date Time Temp Pulse Resp B/P (MAP) Pulse Ox O2 Delivery O2 Flow Rate FiO2 11/17/19 23:06 82 94 11/17/19 23:00 102/68 (79) 11/17/19 22:37 19 Room Air 11/17/19 21:36 99.3 CITLALLI HECTOR MD Nov 17, 2019 23:33
[2019-11-18] VITALS: BP 103/70
[2019-11-18] MEDS ORDERED: ACETAMINOPHEN *IV* 1,000 MG in IV 1 EA IV ONE ×2
[2019-11-18] MEDS ORDERED: IPRATROPIUM 0.5MG/ALBUTEROL 2.5MG INH SOL UD 3ML (DUONEB)(J7620) NEB PRN (00:15)
[2019-11-18 00:24] LABS: C REACTIVE PROTEIN QUANTITATIV 0.94 MG/DL (0.00-0.30)
[2019-11-18 00:35] LABS: ERYTHROCYTE SEDIMENTATION RATE 6 mm/hr (0-20)
--- NOTE | 2019-11-18 01:36 | HPEPDOC ---
[facility] Medical History & Physical Date of Admission Nov 17, 2019 Date of Service: Nov 18, 2019 History and Physical CHIEF COMPLAINT: Stoma infection HISTORY OF PRESENT ILLNESS: This is a 39-year-old female with a pertinent past medical history of laryngeal cancer s/p laryngectomy and radiation in 2001 currently with a stoma is presenting possible stoma infection. She was brought in via EMS and was documented on ED report that there was some pain and discharge from the stoma. When I went to the room to examine the patient for admission she stated that she does not want to stay for she does not want to pick up man an infection by transferring from room to room. She was tearful during the exam. She states that she can take care of herself at home with her home treatment regiment as well as antibiotic she has. She does have an upcoming psych appointment and understand her mental health will not be fixed overnight. She denies any suicidal or homicidal ideation. She was adamant that she will be going home tonight and will leave AGAINST MEDICAL ADVICE. PAST MEDICAL HISTORY: 1. History of laryngeal cancer status post laryngectomy and radiation in 2001 currently has a trach. 2. Diabetes mellitus type 2. 3. CVA in 2016 with no residual deficits. 4. Obesity. 5. Panic disorder with history of depression. 6. Gastroesophageal reflux disease (GERD). 7. Hyperlipidemia. 8. Asthma. 9. Hypothyroidism. HOME MEDICATIONS: Please see below. ALLERGIES: Please see below PAST SURGICAL HISTORY: 1. Hysterectomy 2. Cholecystectomy 3. Laryngeal cancer surgery SOCIAL HISTORY: Tobacco use: Current smoker REVIEW OF SYSTEMS: 10 systems reviewed and negative other than HPI PHYSICAL EXAMINATION: VITAL SIGNS: See below Unable to Person for the patient wish to leave AMA LABORATORY DATA: See below. MICROBIOLOGY: Please see below. IMAGING: Thyroid ASSESSMENT & PLAN: This is a 39-year-old female with a pertinent past medical history of laryngeal cancer status post laryngectomy and radiation in 2001 currently with a stoma is presenting possible stoma infection. PROBLEMS: 1.Cellulitis of the neck. History of laryngeal cancer status post laryngectomy and radiation in 2001 currently has a trach. -s/p 1 dose of Clindamycin in the ER 2. Current Tobacco abuse. The patient has cessation of smoking patient understands the risk and benefits. Provided nicotine patch while admitted. 3. Diabetes mellitus type 2. -c/w gabapentin and ISS 4. History of CVA in 2016 with no residual deficits. 5. Obesity. -complicates care 6. Panic disorder with history of depression. -c/w Cymbalta - PFS - Patient requests support group for parents with children with development disabilities. 7. Gastroesophageal reflux disease (GERD). -c/w Omeprazole 8. Hyperlipidemia. 9. Asthma. -c/w 10. Hypothyroidism. -c/w Synthroid 225mcg 11. Hypertension -c/w lisinopril DISPOSITION: Admit to [facility] but left AMA. Patient was educated about the risks of leaving AGAINST MEDICAL ADVICE such as worsening infection, and staying will benefit with improvement of symptoms. He states she understands and signed the paperwork to leave AGAINST MEDICAL ADVICE @005 - 11/18/2019 Vital Signs Vital Signs Date Time Temp Pulse Resp B/P (MAP) Pulse Ox O2 Delivery O2 Flow Rate FiO2 11/18/19 00:36 76 96 11/18/19 00:00 103/70 (81) 11/17/19 23:33 18 Room Air 11/17/19 21:36 99.3 Laboratory Data Labs 24H Laboratory Tests 2 11/17/19 22:21: Nucleated Red Blood Cells % (auto) 0.0, Erythrocyte Sedimentation Rate 6, Anion Gap 8, Glomerular Filtration Rate > 60.0, Calcium Level 8.1L, Total Bilirubin 0.4, Direct Bilirubin < 0.1, Aspartate Amino Transf (AST/SGOT) 29, Alanine Aminotransferase (ALT/SGPT) 41, Alkaline Phosphatase 81, C-Reactive Protein, Quantitative 0.94H, Total Protein 6.8, Albumin 3.8, Albumin/Globulin Ratio 1.27, Coronavirus (COVID-19)(PCR) NEGATIVE CBC/BMP Laboratory Tests 11/17/19 22:21 Microbiology Microbiology 11/17/19 Wound Culture, Received Pending Home Medications Scheduled Albuterol Sulfate (Albuterol Sulfate) 2.5 Mg/0.5 Ml Vial.neb, 2.5 MG INH BID TAKES MORNING AND DINNERTIME Amoxicillin/Potassium Clav (Amox-Clav 875-125 mg Tablet) 1 Each Tablet, 875 MG PO BID FILLED 10/30/19 FOR 10 DAYS - PATIENT STATES SHE STILL HAS 4 TABLETS LEFT Duloxetine Hcl (Duloxetine HCl) 30 Mg Capsule.dr, 30 MG PO DAILY NEEDS A PRIOR AUTHORIZATION Fluticasone Propionate (Flonase Allergy Relief) 9.9 Ml [place].susp, 1 SPRAY NA DAILY Gabapentin (Gabapentin) 600 Mg Tab, 1,200 MG PO TID Glyburide (Glyburide) 5 Mg Tab, 5 MG PO DAILY Ipratropium/Albuterol Sulfate (Iprat-Albut 0.5-3(2.5) mg/3 ml) 1 Jah Jah, 1 JAH INH BID TAKES AT NOON AND BEDTIME Levothyroxine Sodium (Levoxyl) 25 Mcg Tab, 25 MCG PO DAILY 225MCG TOTAL DAILY Levothyroxine Sodium (Levothyroxine Sodium) 200 Mcg Tablet, 200 MCG PO DAILY 225MCG TOTAL Lisinopril (Lisinopril) 20 Mg Tablet, 20 MG PO DAILY Meloxicam (Meloxicam) 15 Mg Tablet, 15 MG PO DAILY Metformin HCl (Metformin HCl) 1,000 Mg Tab, 1,000 MG PO BID Omeprazole (Omeprazole) 40 Mg Cap, 40 MG PO DAILY Triamcinolone Acet (Triamcinolone Acetonide 0.1% Crm) 80 Gm Cream..g., 1 DOSE TOP BID APPLY TO STOMA Scheduled PRN Budesonide (Budesonide) 0.5 Mg/2 Ml Neb, 1 VIAL NEB BID PRN for SHORTNESS OF BREATH Allergies Coded Allergies: cefuroxime (Verified Allergy, Intermediate, RASH/HIVES, 12/09/18) moxifloxacin (Verified Allergy, Intermediate, HIVES, 12/09/18) sulfamethoxazole (Verified Allergy, Intermediate, HIVES, 12/09/18) trimethoprim (Verified Allergy, Intermediate, HIVES, 12/09/18) Quinazolinones (Verified Allergy, Mild, RASH, 11/17/19) GME ATTESTATION GME ATTESTATION My faculty preceptor for this patient encounter was physically present during the encounter and was fully available. All aspects of the patient interview, examination, medical decision making process, and medical care plan development were reviewed and approved by the faculty preceptor. The faculty preceptor is aware and concurs with the plan as stated in the body of this note and will attest to such by his/her cosignature. ATTENDING NOTE I reviewed and 's H&P and agree with the findings as documented. Pls see my progress dated 11/17/19 for additional details. ZACKERY ARELLANO DO Nov 18, 2019 01:36 CITLALLI HECTOR MD November 20, 2019 06:11
[2019-11-18] MEDS ORDERED: IPRATROPIUM 0.5MG/ALBUTEROL 2.5MG INH SOL UD 3ML (DUONEB)(J7620) NEB SCH (02:00)
--- NOTE | 2019-11-18 05:02 | DS.PDOC ---
Discharge Summary General Date of Admission Nov 17, 2019 at 23:32 Date of Discharge November 18 2019 Attending Physician: CITLALLI HECTOR MD Discharge Summary PROCEDURES PERFORMED DURING STAY: [None]. ADMITTING DIAGNOSES: 1. Mild Neck/stoma cellulitis DISCHARGE DIAGNOSES: 1.Mild Neck/stoma cellulitis COMPLICATIONS/CHIEF COMPLAINT: Cellulitis Of Neck,Tobacco Use. HISTORY OF PRESENT ILLNESS: The patient presented w c/o of pain and discharge from her stoma after picking at it; she reported picking at it because she had been under a lot of stress. HOSPITAL COURSE: Initially the patient agreed to overnight admission for a short course of IV abx but prior to transfer to the [facility] she insisted on leaving AMA. DISCHARGE MEDICATIONS: Please see below. ALLERGIES: Please see below. PHYSICAL EXAMINATION ON DISCHARGE: n/a LABORATORY DATA: Please see below. IMAGING: see HPI PROGNOSIS: guarded ACTIVITY: [As tolerated]. DISCHARGE PLAN: left AMA ITEMS TO FOLLOWUP ON ON OUTPATIENT: 1. Neck/stoma cellulitis DISCHARGE CONDITION: [Stable]. TIME SPENT ON DISCHARGE: approximately 5 minutes. Vital Signs/I&Os Vital Signs Date Time Temp Pulse Resp B/P (MAP) Pulse Ox O2 Delivery O2 Flow Rate FiO2 11/18/19 00:36 76 96 11/18/19 00:00 103/70 (81) 11/17/19 23:33 18 Room Air 11/17/19 21:36 99.3 I&O- Last 24 Hours up to 6 AM 11/18/19 05:59 Intake Total 1050 ml Balance 1050 ml Laboratory Data Labs 24H Laboratory Tests 2 11/17/19 22:21: Nucleated Red Blood Cells % (auto) 0.0, Erythrocyte Sedimentation Rate 6, Anion Gap 8, Glomerular Filtration Rate > 60.0, Calcium Level 8.1L, Total Bilirubin 0.4, Direct Bilirubin < 0.1, Aspartate Amino Transf (AST/SGOT) 29, Alanine Aminotransferase (ALT/SGPT) 41, Alkaline Phosphatase 81, C-Reactive Protein, Quantitative 0.94H, Total Protein 6.8, Albumin 3.8, Albumin/Globulin Ratio 1.27, Coronavirus (COVID-19)(PCR) NEGATIVE CBC/BMP Laboratory Tests 11/17/19 22:21 Microbiology Microbiology 11/17/19 Wound Culture, Received Pending Discharge Medications Scheduled Albuterol Sulfate (Albuterol Sulfate) 2.5 Mg/0.5 Ml Vial.neb, 2.5 MG INH BID, (Reported) TAKES MORNING AND DINNERTIME Amoxicillin/Potassium Clav (Amox-Clav 875-125 mg Tablet) 1 Each Tablet, 875 MG PO BID, (Reported) FILLED 10/30/19 FOR 10 DAYS - PATIENT STATES SHE STILL HAS 4 TABLETS LEFT Duloxetine Hcl (Duloxetine HCl) 30 Mg Capsule.dr, 30 MG PO DAILY, (Reported) NEEDS A PRIOR AUTHORIZATION Fluticasone Propionate (Flonase Allergy Relief) 9.9 Ml [place].susp, 1 SPRAY NA DAILY, (Reported) Gabapentin (Gabapentin) 600 Mg Tab, 1,200 MG PO TID, (Reported) Glyburide (Glyburide) 5 Mg Tab, 5 MG PO DAILY, (Reported) Ipratropium/Albuterol Sulfate (Iprat-Albut 0.5-3(2.5) mg/3 ml) 1 Jah Jah, 1 JAH INH BID, (Reported) TAKES AT NOON AND BEDTIME Levothyroxine Sodium (Levoxyl) 25 Mcg Tab, 25 MCG PO DAILY, (Reported) 225MCG TOTAL DAILY Levothyroxine Sodium (Levothyroxine Sodium) 200 Mcg Tablet, 200 MCG PO DAILY, (Reported) 225MCG TOTAL Lisinopril (Lisinopril) 20 Mg Tablet, 20 MG PO DAILY, (Reported) Meloxicam (Meloxicam) 15 Mg Tablet, 15 MG PO DAILY, (Reported) Metformin HCl (Metformin HCl) 1,000 Mg Tab, 1,000 MG PO BID, (Reported) Omeprazole (Omeprazole) 40 Mg Cap, 40 MG PO DAILY, (Reported) Triamcinolone Acet (Triamcinolone Acetonide 0.1% Crm) 80 Gm Cream..g., 1 DOSE TOP BID, (Reported) APPLY TO STOMA Scheduled PRN Budesonide (Budesonide) 0.5 Mg/2 Ml Neb, 1 VIAL NEB BID PRN for SHORTNESS OF BREATH, (Reported) Allergies Coded Allergies: cefuroxime (Verified Allergy, Intermediate, RASH/HIVES, 12/09/18) moxifloxacin (Verified Allergy, Intermediate, HIVES, 12/09/18) sulfamethoxazole (Verified Allergy, Intermediate, HIVES, 12/09/18) trimethoprim (Verified Allergy, Intermediate, HIVES, 12/09/18) Quinazolinones (Verified Allergy, Mild, RASH, 11/17/19) CITLALLI HECTOR MD Nov 18, 2019 05:02
[2019-11-18] MEDS ORDERED: LEVOTHYROXINE 25MCG TABLET (0.025MG) PO SCH (06:00)
[2019-11-18] MEDS ORDERED: LEVOTHYROXINE 100MCG TABLET (0.1MG) PO SCH (06:00)
[2019-11-18] MEDS ORDERED: BUDESONIDE 0.5 MG/2 ML INHALATION SUSPENSION INH SCH (08:00)
[2019-11-18] MEDS ORDERED: OMEPRAZOLE 20 MG CAP PO SCH (09:00)
[2019-11-18] MEDS ORDERED: FLUTICASONE PROP 0.05% NASAL SPRAY 16 GM (FLONASE) SCH (09:00)
[2019-11-18] MEDS ORDERED: lisinopriL 20 MG TAB PO SCH (09:00)
[2019-11-18] MEDS ORDERED: DULoxetine 30 MG CAP (CYMBALTA) PO SCH (09:00)
--- NOTE | 2019-11-18 10:24 | REP ---
ULTRASOUND CHEST WALL: Real-time sonographic evaluation of the chest wall performed with special attention paid to the stoma in the right paratracheal region. Imaging is also performed inferior to the clavicle where the patient complains of pain. The soft tissues in these regions demonstrate no evidence of mass or fluid collection. Preliminary report provided by [facility] at the time of the exam. Electronically Signed by Wilbur Juárez MD 11/18/2019 10:53 A
== END 2019-11-18 01:05 | disposition left against medical advice (07) | DRG 143 ==
LOC: M ED 21:21 → EDBD 21:21 → M ED INP 23:32 → ENRESERV 11-18 00:18
PROVIDERS: ADMIT Internal Medicine; ATTEND Internal Medicine
DX: J95.02 Infection of tracheostomy stoma (principal); L03.221 Cellulitis of neck; F32.9 Major depressive disorder, single episode, unspecified; E66.9 Obesity, unspecified; E11.9 Type 2 diabetes mellitus without complications; Z79.899 Other long term (current) drug therapy; Z88.8 Allergy status to other drugs, medicaments and biological substances; Z88.2 Allergy status to sulfonamides; Z85.818 Personal history of malignant neoplasm of other sites of lip, oral cavity, and pharynx; J45.909 Unspecified asthma, uncomplicated; E03.9 Hypothyroidism, unspecified; Z86.73 Personal history of transient ischemic attack (TIA), and cerebral infarction without residual deficits; F41.9 Anxiety disorder, unspecified; F17.200 Nicotine dependence, unspecified, uncomplicated

== ENCOUNTER 2019-11-22 11:07 | Emergency (ER) | payer MEDICAID ==
[~2019-11-22] VITALS: Ht 180.3 cm; Wt 120.5 kg
[~2019-11-22 11:07] MED LIST changes: +ALB2.5NEB INH; +AMOX875T2 PO; +DULO30CA9 PO; -GABAPENTIN 300 MG CAP PO SCH; +LISI-538 PO; -NICOTINE 21MG/24HR 1 EA TRANSDERMAL TD SCH; -RAMELTEON 8 MG TAB (ROZEREM) PO SCH; +TRIA1CR80 TOP
[2019-11-22] MEDS ORDERED: BUSP10TA (11:16)
[2019-11-22] MEDS ORDERED: HYDR-643 (11:16)
[2019-11-22] MEDS ORDERED: CYCL-707 (11:16)
[2019-11-22] MEDS ORDERED: ISOVUE-370 76% 100ML VIAL As Ordered ONE (12:16)
[2019-11-22 12:21] LABS: BASO # 0.1 10^3/uL (0.0-0.2); BASO % 0.8 % (0.0-1.0); EOS # 0.3 10^3/uL (0.0-0.5); EOS % 4.1 % (0.0-3.0); HEMATOCRIT 43.5 % (36.0-47.0); HEMOGLOBIN 14.1 g/dl (12.0-15.5); LYMPH # 2.3 10^3/uL (1.5-5.0); LYMPH % 29.9 % (24.0-44.0); MEAN CORPUSCULAR HEMOGLOBIN 30.8 pg (27.0-33.0); MEAN CORPUSCULAR HGB CONC 32.4 g/dl (32.0-36.5); MONO # 0.6 10^3/uL (0.0-0.8); MONO % 8.2 % (0.0-5.0); NEUTROPHILS # 4.3 10^3/uL (1.5-8.5); NEUTROPHILS % 56.7 % (36.0-66.0); PLATELET COUNT, AUTOMATED 289 10^3/uL (150-450); RED BLOOD COUNT 4.58 10^6/uL (4.00-5.40); WHITE BLOOD COUNT 7.7 10^3/uL (4.0-10.0)
--- NOTE | 2019-11-22 12:41 | REP ---
Clinical: Syncope . Comparison: 11/08/2019 . Findings: The ventricles, sulci, and cisterns are normal in position and appearance. Juárez-white differentiation is maintained. No acute intracranial hemorrhage, mass/mass effect, pathology or trauma/injury. No evidence for acute infarction. No extra-axial fluid collection. Calvarium is intact. Paranasal sinuses and mastoid air cells are clear. Impression: Normal noncontrast head CT. No evidence for acute intracranial pathology or trauma/injury. Electronically Signed by Micha Maldonado MD 11/22/2019 12:33 P
[2019-11-22 12:49] LABS: HCG, SERUM QUALITATIVE NEGATIVE (NEGATIVE)
--- NOTE | 2019-11-22 12:50 | REP ---
Clinical: Acute chest pain. Technique: Axial contrast enhanced images from the thoracic inlet to the upper abdomen using 100 ml Isovue 370 intravenous contrast material with coronal and sagittal re-formations. Findings: Satisfactory enhancement of the pulmonary vasculature is achieved and no filling defects are identified to suggest pulmonary embolus. Thoracic aorta is normal caliber without aneurysm or dissection. Heart and pericardium are normal. Bilateral lung mercedes are well aerated and clear without acute pulmonary parenchymal consolidation or atelectasis. No nodule or mass lesion. No pleural effusion/reaction. No pneumothorax. No adenopathy. Impression: No evidence for pulmonary embolus. No acute pleuroparenchymal or mediastinal process. Electronically Signed by Micha Maldonado MD 11/22/2019 12:43 P
--- NOTE | 2019-11-22 12:53 | REP ---
Clinical: Acute chest pain . Comparison: 10/03/2019 . Findings: The mediastinum and cardiac silhouette are stable and within normal limits for portable technique. The lung mercedes are clear without acute consolidation, effusion, or pneumothorax. Skeletal structures are intact. Impression: No acute cardiopulmonary process appreciated. Electronically Signed by Micha Maldonado MD 11/22/2019 12:45 P
[2019-11-22] MEDS ORDERED: NS 1,000 ML IV ONE (13:00)
[2019-11-22 13:27] LABS: ALBUMIN 3.8 GM/DL (3.2-5.2); ALT/SGPT 57 U/L (12-78); BILIRUBIN,DIRECT < 0.1 MG/DL (0.0-0.2); BILIRUBIN,TOTAL 0.4 MG/DL (0.2-1.0); CK-MB VALUE MASS < 1.0 NG/ML (<3.6); CPK CREATINE PHOSPHOKINASE 107 U/L (26-192); MB/CK RELATIVE INDEX 0.93 (< OR =4)
[2019-11-22 13:28] LABS: FREE T4 1.32 NG/DL (0.76-1.46); LIPASE 1476 U/L (73-393); TROPONIN I < 0.02 NG/ML (< 0.10)
[2019-11-22 15:15] VITALS: BP 106/59
[2019-11-22] MEDS ORDERED: NS 500 ML IV ONE (15:15)
--- NOTE | 2019-11-22 19:26 | ECGEPIP ---
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
== END 2019-11-22 15:46 | disposition home or self-care (01) ==
LOC: M ED 11:07
DX: R07.9 Chest pain, unspecified (principal); R74.8 Abnormal levels of other serum enzymes; I95.1 Orthostatic hypotension; E11.9 Type 2 diabetes mellitus without complications; E78.5 Hyperlipidemia, unspecified; F33.9 Major depressive disorder, recurrent, unspecified; F41.9 Anxiety disorder, unspecified; Z85.21 Personal history of malignant neoplasm of larynx; Z88.8 Allergy status to other drugs, medicaments and biological substances; Z79.899 Other long term (current) drug therapy
CPT/HCPCS: 70450; 71045; 71275; 80047; 80076; 82550; 82553; 83690; 84439; 84443; 84702; 84703; 85025; 93005; 93041; 94760; 96360; 96361; 99285; Q9967

== ENCOUNTER 2020-02-08 22:50 | Emergency (ER) | payer MEDICAID, OTHER ==
[~2020-02-08 22:50] MED LIST changes: +ASPI-546 PO; -ASPI1TAB15 PO; +BUSP10TA; +CYCL-707; +HYDR-643
[2020-02-09 00:23] LABS: BASO # 0.1 10^3/uL (0.0-0.2); BASO % 0.6 % (0.0-1.0); EOS # 0.2 10^3/uL (0.0-0.5); EOS % 1.9 % (0.0-3.0); HEMATOCRIT 46.7 % (36.0-47.0); HEMOGLOBIN 15.1 g/dl (12.0-15.5); LYMPH # 1.4 10^3/uL (1.5-5.0); LYMPH % 12.4 % (24.0-44.0); MEAN CORPUSCULAR HEMOGLOBIN 29.6 pg (27.0-33.0); MEAN CORPUSCULAR HGB CONC 32.3 g/dl (32.0-36.5); MEAN CORPUSCULAR VOLUME 91.6 fl (80.0-96.0); MONO # 0.7 10^3/uL (0.0-0.8); MONO % 6.3 % (0.0-5.0); NEUTROPHILS # 8.6 10^3/uL (1.5-8.5); NEUTROPHILS % 78.3 % (36.0-66.0); PLATELET COUNT, AUTOMATED 284 10^3/uL (150-450); WHITE BLOOD COUNT 10.9 10^3/uL (4.0-10.0)
[2020-02-09 00:52] LABS: ALBUMIN 3.9 GM/DL (3.2-5.2); BILIRUBIN,DIRECT 0.1 MG/DL (0.0-0.2); BILIRUBIN,TOTAL 0.4 MG/DL (0.2-1.0); THYROID STIMULATING HORMONE 0.103 uIU/ML (0.358-3.740); THYROXINE (T4) 14.2 UG/DL (4.5-12.0); TOTAL PROTEIN 7.2 GM/DL (6.4-8.2)
[2020-02-09] MEDS ORDERED: VENL75TA2 PO (00:59)
[2020-02-09] MEDS ORDERED: MONT10TA4 PO (00:59)
[2020-02-09] MEDS ORDERED: DULO1CAP6 PO (00:59)
[2020-02-09] MEDS ORDERED: LABE100T36 PO (00:59)
[2020-02-09] MEDS ORDERED: DOXY100C37 PO (02:03)
[2020-02-09] MEDS ORDERED: DOXYCYCLINE HYCLATE 100 MG in D5W MINI-BAG PLUS 100 ML IV ONE (02:15)
[2020-02-09 04:16] VITALS: BP 158/77
--- NOTE | 2020-02-09 07:50 | REP ---
Clinical: Cough and dyspnea . Comparison: 11/22/2019 . Findings: The mediastinum and cardiac silhouette are stable and within normal limits for portable technique. The lung mercedes are clear without acute consolidation, effusion, or pneumothorax. Skeletal structures are intact. Impression: No acute cardiopulmonary process appreciated. Electronically Signed by Micha Maldonado MD 02/09/2020 07:40 A
--- NOTE | 2020-02-09 08:02 | ECGEPIP ---
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
== END 2020-02-09 05:04 | disposition home or self-care (01) ==
LOC: EDBD 22:50 → M ED 22:50
DX: R05 Cough (principal); L03.221 Cellulitis of neck; E11.9 Type 2 diabetes mellitus without complications; J45.909 Unspecified asthma, uncomplicated; E03.9 Hypothyroidism, unspecified; E78.5 Hyperlipidemia, unspecified; K21.9 Gastro-esophageal reflux disease without esophagitis; Z85.21 Personal history of malignant neoplasm of larynx; Z86.73 Personal history of transient ischemic attack (TIA), and cerebral infarction without residual deficits; Z79.899 Other long term (current) drug therapy; Z79.890 Hormone replacement therapy; Z88.1 Allergy status to other antibiotic agents; Z88.2 Allergy status to sulfonamides; Z88.8 Allergy status to other drugs, medicaments and biological substances; F17.210 Nicotine dependence, cigarettes, uncomplicated

== ENCOUNTER → 2020-06-10 | Outpatient (CLI) | payer OTHER ==
[~2020-06-10] MED LIST changes: +DULO1CAP6 PO; +LABE100T36 PO; +MONT10TA4 PO; +VENL75TA2 PO
--- NOTE | 2020-06-10 14:46 | RADENCPD ---
Date/Time of Encounter Date of Encounter: Jun 10, 2020 Time of Encounter: 13:00 Encounter Patient's called today to report that Kathy has been experiencing persistent and non-healing ulceration around her stoma and persistent dysphagia. She does not have a tracheostomy tube or TEP--it is a decannulated stoma. 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 She has psychiatric diagnoses and is known to pick at the skin around her stoma. They are asking for a prescription for an ostomy barrier ring (such as is used in cases of hakeem-colostomy cellulitis) to protect the skin, wick away drainage and discourage her picking. I think this a reasonable request as upon viewing her radiation plan from 2001, there was significant dose to the hakeem-stomal skin and it is likely that the tissue is quite compromised from her treatment and recurrent minor trauma/infection. She also received a significant radiation dose to the cervical esophagus and I suspect based on this that she may be suffering from esophageal stricture. This would be best evaluated by a associate editor. I offered referral to the GI group here for evaluation. She does continue to follow with Dr. David, who ultimately can direct what ought to be done with the stoma. Plan: Referral to GI for evaluation of dysphagia Paper Rx for ostomy ring mailed to patient Follow up as needed JENELLE KATZ MD Jun 10, 2020 14:46
== END ==
LOC: M ONCR 13:31
PROVIDERS: ATTEND General Practice
DX: R13.10 Dysphagia, unspecified (principal)

== ENCOUNTER 2020-06-23 16:11 | Inpatient (IN) | payer MEDICAID, OTHER ==
[~2020-06-23] VITALS: Ht 180.3 cm; Wt 123.2 kg
[~2020-06-23 16:11] MED LIST changes: +LABE100T4 PO; -LABE10TAB PO; -MONT10TA4 PO; +MONT5TAB2 PO
[2020-06-23] MEDS ORDERED: GLYB5TA (16:28)
[2020-06-23] MEDS ORDERED: METF10004 PO (16:28)
[2020-06-23] MEDS ORDERED: PRED20TA (16:28)
[2020-06-23] MEDS ORDERED: AZIT-12 (16:28)
[2020-06-23] MEDS ORDERED: methylPREDNISolone 125MG 2ML VIAL IV ONE (17:00)
[2020-06-23 17:17] LABS: ABG BASE EXCESS 4.2 (-2.0-2.0); ABG HCO3 30.1 MEQ/L (22.0-26.0); ABG O2 SATURATION 88.7 % (95.0-99.0); ABG PARTIAL PRESSURE CO2 49.9 mmHg (35.0-45.0); ABG PARTIAL PRESSURE O2 50.8 mmHg (75.0-100.0); ABG STANDARD HCO3 27.9 MEQ/L (22.0-26.0); ABG TOTAL CO2 31.7 MEQ/L (22.0-29.0); ABG pH (ARTERIAL) 7.399 UNITS (7.350-7.450)
[2020-06-23] MEDS: COMBIVENT RESPIMAT 100-20MCG INHALER 4GM INH SCH ×3 (17:22→17:47)
--- NOTE | 2020-06-23 18:04 | REP ---
INDICATION: DYSPNEA/COUGH. COMPARISON: 02/09/2020 FINDINGS: The technique utilized in obtaining the radiograph has magnified the cardiac silhouette and accentuated the interstitial markings. The superior mediastinal structures are midline. The cardiac silhouette is unremarkable in size, shape, and position. The diaphragmatic surfaces of the lungs are regular, and the costophrenic angles are clear. The pulmonary mercedes are clear. The imaged osseous structures are intact. IMPRESSION: There is no acute cardiopulmonary disease. No change from the prior exam <Electronically signed by Lexa Lea > 06/23/20 1800
[2020-06-23 18:16] LABS: BASO % 0.2 % (0.0-1.0); EOS % 0.2 % (0.0-3.0); HEMATOCRIT 45.8 % (36.0-47.0); HEMOGLOBIN 14.4 g/dl (12.0-15.5); LYMPH # 1.9 10^3/uL (1.5-5.0); LYMPH % 10.8 % (24.0-44.0); MEAN CORPUSCULAR HGB CONC 31.4 g/dl (32.0-36.5); MEAN CORPUSCULAR VOLUME 85.9 fl (80.0-96.0); MONO # 1.6 10^3/uL (0.0-0.8); NEUTROPHILS # 13.9 10^3/uL (1.5-8.5); NEUTROPHILS % 79.1 % (36.0-66.0); PLATELET COUNT, AUTOMATED 338 10^3/uL (150-450); RED BLOOD COUNT 5.33 10^6/uL (4.00-5.40); WHITE BLOOD COUNT 17.6 10^3/uL (4.0-10.0)
[2020-06-23 18:36] LABS: BLOOD UREA NITROGEN 6 MG/DL (7-18); CALCIUM LEVEL 9.4 MG/DL (8.5-10.1); CARBON DIOXIDE LEVEL 31 MEQ/L (21-32); CHLORIDE LEVEL 92 MEQ/L (98-107); CREATININE FOR GFR 0.68 MG/DL (0.55-1.30); GLOMERULAR FILTRATION RATE > 60.0 (>58); GLUCOSE, FASTING 206 MG/DL (70-100); POTASSIUM SERUM 4.1 MEQ/L (3.5-5.1); SODIUM LEVEL 128 MEQ/L (136-145)
[2020-06-23 19:26] VITALS: O2SAT 79
[2020-06-23] MEDS ORDERED: ISOVUE-370 76% 100ML VIAL As Ordered ONE (19:36)
[2020-06-23] MEDS ORDERED: DULO1CAP6 PO (22:57)
[2020-06-23] MEDS ORDERED: BUDE2SUS3 INH (22:57)
[2020-06-23] MEDS ORDERED: AZIT-10 PO (22:57)
[2020-06-23] MEDS ORDERED: NS3NEB INH (22:57)
[2020-06-23] MEDS ORDERED: LABE100T36 PO (22:57)
[2020-06-23] MEDS ORDERED: MONT5TAB2 PO (22:57)
[2020-06-23] MEDS ORDERED: HYDR-643 PO (22:57)
[2020-06-23] MEDS ORDERED: DEXTROSE 50% 50 ML SYRINGE IV PRN (23:00)
[2020-06-23] MEDS ORDERED: GLUCOSE 4GM CHEW TABLET PO PRN (23:00)
[2020-06-23] MEDS ORDERED: GLUCAGON INJ 1MG VIAL SC PRN (23:00)
[2020-06-23] MEDS ORDERED: FLUTICASONE PROP 0.05% NASAL SPRAY 16 GM (FLONASE) PRN (23:15)
[2020-06-23] MEDS ORDERED: hydrOXYzine 10 MG TAB PO PRN (23:15)
[2020-06-23] MEDS ORDERED: PILL CUTTER 1 EACH XX PRN (23:30)
[2020-06-23] MEDS ORDERED: IPRATROPIUM 0.5MG/ALBUTEROL 2.5MG INH SOL UD 3ML (DUONEB) NEB PRN (23:30)
[2020-06-23 23:47] LABS: HEMOGLOBIN A1c 6.9 %
[2020-06-23 23:52] LABS: FREE T4 0.98 NG/DL (0.76-1.46); MAGNESIUM LEVEL 2.1 MG/DL (1.8-2.4)
[2020-06-24] MEDS: GABAPENTIN 300 MG CAP PO SCH ×4 (00:48→22:56)
[2020-06-24] MEDS: HumaLOG INSULIN (NovoLOG) PER UNIT SC SCH ×5 (00:49→22:57)
[2020-06-24 01:00] VITALS: BP 142/92
--- NOTE | 2020-06-24 01:01 | HPEPDOC ---
[facility] Medical History & Physical Date of Admission Jun 23, 2020 Date of Service: Jun 23, 2020 Attending Physician: MICHELLE BLACKBURN MD History and Physical CHIEF COMPLAINT: difficulty breathing HISTORY OF PRESENT ILLNESS: Kathy Bradshaw is a 39 YO F with history of laryngeal cancer s/p laryngectomy, radiation and tracheostomy currently with decannulated stoma who presents to the ED with four days of difficulty breathing. The patient states that she has had difficulty getting around her house due to shortness of breath but denies any fevers, chills, nausea, vomiting or abdominal pain. She also has some congestion and wheezing. She recently was seen at an outside hospital and is currently undergoing treatment for pneumonia with Azithromycin and prednisone and notes only minimal improvement in her shortness of breath. She has been taking all of her other medication as prescribed. She denies any sick contacts or recent travel. In the ED, she was found to be saturating 83% on room air and on a walk test her saturation went down to the mid 70s. She is positive for rhinovirus. She was given Combivent and Solumedrol. PAST MEDICAL HISTORY: 1. History of laryngeal cancer status post laryngectomy and radiation in 2001 currently has a decannulated stoma 2. Diabetes mellitus type 2. 3. CVA in 2016 with no residual deficits. 4. Obesity. 5. Panic disorder with history of depression. 6. Gastroesophageal reflux disease (GERD). 7. Hyperlipidemia. 8. Asthma. 9. Hypothyroidism. 10. Unspecified psychiatric disorder HOME MEDICATIONS: Please see below. ALLERGIES: Please see below PAST SURGICAL HISTORY: 1. Hysterectomy 2. Cholecystectomy 3. Laryngeal cancer surgery SOCIAL HISTORY: Tobacco use: Current smoker, smokes >1ppd Denies alcohol Reports recreational marijuana use FAMILY HISTORY: Reviewed and noncontributory ALLERGIES: Please see below. REVIEW OF SYSTEMS: Constitutional: No Weight Change, No Fever, No Chills, No Night Sweats, No Fatigue, No Malaise ENT/Mouth: No Hearing Changes, No Ear Pain, No Nasal Congestion, No Sinus Pain, No Hoarseness, No sore throat, No Rhinorrhea, No Swallowing Difficulty Eyes: No Eye Pain, No Swelling, No Redness, No Foreign Body, No Discharge, No Vision Changes Cardiovascular: No Chest Pain, No SOB, No PND, No Dyspnea on Exertion, No Orthopnea, No Claudication, No Edema, No Palpitations Respiratory: No Cough, reports Wheezing, reports Dyspnea Gastrointestinal: No Nausea, No Vomiting, No Diarrhea, No Constipation, No Pain, No Heartburn, No Anorexia, No Dysphagia, No Hematochezia, No Melena Musculoskeletal: No Arthralgias, No Myalgias, No Joint Swelling, No Joint Stiffness, No Back Pain, No Neck Pain, No Injury History Skin: No Skin Lesions, No Pruritis, No Hair Changes, No Breast/Skin Changes, No Nipple Discharge Neuro: No Weakness, No Numbness, No Paresthesias, No Loss of Consciousness, No Syncope, No Dizziness, No Headache, No Coordination Changes, No Recent Falls Psych: No Anxiety/Panic, No Depression, No Insomnia, No Personality Changes, No Delusions Heme/Lymph: No Bruising, No Bleeding, No Transfusions History, No Lymphadenopathy Endocrine: No Polyuria, No Polydipsia, No Temperature Intolerance HOME MEDICATIONS: Please see below. PHYSICAL EXAMINATION: VITAL SIGNS: see below GENERAL: alert and oriented, in no apparent distress, difficult to understand due to stoma, sitting up in bed, undergoing breathing treatments HEENT: PERRL, EOMI, Oral mucous membranes are moist without lesions. Stoma l ocated in mid neck area is surrounded by erythema NECK: The patient has no noted JVD. No adenopathy is appreciated. No thyromegaly CHEST/LUNGS: Scattered wheezing is appreciated in upper lobes bilaterally. No other adventitious breath sounds are appreciated. There is no subcutaneous air appreciated. There is no tenderness to the chest wall. HEART:Regular rate and rhythm. No murmurs, rubs, or gallops are appreciated. Distal pulses are 2+. No carotid bruits appreciated. ABDOMEN: Obese, Soft, nontender, and nondistended. Bowel sounds are positive. No organomegaly is appreciated. No masses are appreciated. There are no peritoneal signs. There is no Zamora sign. EXTREMITIES: No peripheral edema. There is no focal long bone tenderness or deformity. SKIN: The patients skin is warm and dry, without rashes or lesions. PSYCHIATRIC: AAO x 3, normal mood/affect NEUROLOGIC: The patient has 5/5 strength to the upper and lower extremities bilaterally. Sensation is intact throughout. Deep tendon reflexes are 2+ in all four extremities. There are no deficits to the cranial nerves. LABORATORY DATA: See below. IMAGING: CXR: FINDINGS: The technique utilized in obtaining the radiograph has magnified the cardiac silhouette and accentuated the interstitial markings. The superior mediastinal structures are midline. The cardiac silhouette is unremarkable in size, shape, and position. The diaphragmatic surfaces of the lungs are regular, and the costophrenic angles are clear. The pulmonary mercedes are clear. The imaged osseous structures are intact. IMPRESSION: There is no acute cardiopulmonary disease. No change from the prior exam CT ANGIO CHEST: Official read pending, but reviewed by myself. Shows some perihilar infiltrates, no obvious consolidations, no edema or fluid. No concern for pneumonia MICROBIOLOGY: Please see below. ASSESSMENT: This is a 39-year-old female with history of laryngeal cancer status post tracheostomy and now decannulated stoma experiencing dysphagia and repeated neck cellulitis at the site of the stoma who presents with 4 days shortness of breath and dyspnea on exertion found to have leukocytosis, hypoxia and positive for rhinovirus concerning for asthma exacerbation. PLAN: 1. Acute Asthma/COPD exacerbation: Leukocytosis, hypoxia -Patient was found to be positive for human rhinovirus -ABG 7.399/49.9/50. Patient placed on nonrebreather in ED -Status post Combivent and Solu-Medrol 125 mg in ED -Will continue outpatient azithromycin (day 3 out of 5), start prednisone 40 mg daily -DuoNebs as needed for shortness of breath -Titrate oxygen 88% to 92% -Continue home fluticasone 2. Hyponatremia: Sodium found to be 128 -Likely due to lung disease -Pending urine and serum osmolality -Will repeat BMP at 0200 3. Laryngeal cancer status post tracheostomy now with decannulated stoma: -Per radiation oncology notes patient recently complaining of dysphasia. -Will need ENT/GI follow-up in outpatient setting 4. Type 2 diabetes: Hemoglobin A1c found to be 6.9% -Holding home oral meds for now -Continue with sliding scale insulin and hypoglycemic protocol 5. Hypothyroidism: Likely related to previous neck radiation -TSH found to be 6.770, free T4 0.98 -Will continue current dose levothyroxin 200 g daily 6. GERD: -Continue home omeprazole 7. History of hypertension: -Continue home labetalol 8. Chronic pain, unspecified -Continue home Cymbalta, gabapentin DVT prophylaxis: Lovenox DISPO: Pending clinical improvement Vital Signs Vital Signs Date Time Temp Pulse Resp B/P (MAP) Pulse Ox O2 Delivery O2 Flow Rate FiO2 06/23/20 20:28 164/99 (120) 06/23/20 19:26 79 Room Air 06/23/20 17:12 83 06/23/20 16:12 97.9 94 16 Laboratory Data Labs 24H Laboratory Tests 2 06/23/20 17:08: Blood Gas Bicarbonate Standard 27.9H, Arterial Blood pH 7.399, Arterial Blood Partial Pressure CO2 49.9H, Arterial Blood Partial Pressure O2 50.8L, Arterial Blood Total CO2 31.7H, Arterial Blood HCO3 30.1H, Arterial Blood Base Excess 4.2H, Arterial Blood Oxygen Saturation 88.7L 06/23/20 17:54: Immature Granulocyte % (Auto) 0.7, Neutrophils (%) (Auto) 79.1H, Lymphocytes (%) (Auto) 10.8L, Monocytes (%) (Auto) 9.0H, Eosinophils (%) (Auto) 0.2, Basophils (%) (Auto) 0.2, Neutrophils # (Auto) 13.9H, Lymphocytes # (Auto) 1.9, Monocytes # (Auto) 1.6H, Eosinophils # (Auto) 0.0, Basophils # (Auto) 0.0, Nucleated Red Blood Cells % (auto) 0.0, Anion Gap 5L, Glomerular Filtration Rate > 60.0, Lactic Acid Level 1.4, Calcium Level 9.4 CBC/BMP Laboratory Tests 06/23/20 17:54 Microbiology Microbiology 06/23/20 Blood Culture, Received Pending 06/23/20 Respiratory Virus Panel (PCR) (JUAN PABLO) - Final, Complete Human Rhinovirus/Enterovirus 06/23/20 Blood Culture, Received Pending Home Medications Scheduled Azithromycin (Azithromycin) 250 Mg Tablet, 250 MG PO ASDIRECTED 500MG ON DAY 1, 250MG ON DAYS 2-5, STARTED 06/22/2020 Budesonide (Budesonide) 1 Mg/2 Ml Ampul.neb, 2 MG INH BID Duloxetine Hcl (Duloxetine HCl) 60 Mg Capsule.dr, 60 MG PO DAILY Gabapentin (Gabapentin) 600 Mg Tab, 1,200 MG PO TID Labetalol HCl (Labetalol HCl) 100 Mg Tablet, 50 MG PO DAILY Levothyroxine Sodium (Levothyroxine Sodium) 200 Mcg Tablet, 200 MCG PO DAILY Meloxicam (Meloxicam) 15 Mg Tablet, 15 MG PO DAILY Montelukast Sodium (Montelukast Sodium) 10 Mg Tablet, 10 MG PO DAILY Omeprazole (Omeprazole) 40 Mg Cap, 40 MG PO DAILY Scheduled PRN Fluticasone Propionate (Flonase Allergy Relief) 9.9 Ml [place].susp, 1 SPRAY NA BID PRN for NASAL CONGESTION Hydroxyzine HCl (Hydroxyzine HCl) 10 Mg Tablet, 10 MG PO Q8H PRN for ANXIETY Ipratropium/Albuterol Sulfate (Iprat-Albut 0.5-3(2.5) mg/3 ml) 1 Harriet Harriet, 3 ML INH QID PRN for SHORTNESS OF BREATH Sodium Chloride (Sodium Chloride 0.9% Saline Neb) 3 Ml Vial.neb, 3 ML INH TID PRN for SHORTNESS OF BREATH TAKES WITH DUONEB NEEDED Triamcinolone Acet (Triamcinolone Acetonide 0.1% Crm) 80 Gm Cream..g., 1 DOSE TOP BID PRN for REDNESS/IRRITATION APPLY TO STOMA Allergies Coded Allergies: cefuroxime (Verified Allergy, Intermediate, RASH/HIVES, 06/23/20) moxifloxacin (Verified Allergy, Intermediate, HIVES, 06/23/20) sulfamethoxazole (Verified Allergy, Intermediate, HIVES, 06/23/20) trimethoprim (Verified Allergy, Intermediate, HIVES, 06/23/20) Quinazolinones (Verified Allergy, Mild, RASH, 06/23/20) A-FIB/CHADSVASC A-FIB History Current/History of A-Fib/PAF?: No Current PO Anticoag Therapy: No GME ATTESTATION GME ATTESTATION My faculty preceptor for this patient encounter was physically present during the encounter and was fully available. All aspects of the patient interview, e xamination, medical decision making process, and medical care plan development were reviewed and approved by the faculty preceptor. The faculty preceptor is aware and concurs with the plan as stated in the body of this note and will attest to such by his/her cosignature. ATTENDING NOTE I, Michelle Blackburn, have independently examined this patient and performed my own physical exam, as well as reviewed the documentation and edited where necessary. I have discussed in detail with the resident / student the findings and plan of treatment as documented by the resident / student and edited their note. I agree with their findings and treatment plan and have edited their documentation. I will continue to follow the patient during this hospital stay. KATHY ARVIZU MD Jun 23, 2020 22:16 MICHELLE BLACKBURN MD Jun 24, 2020 01:27
[2020-06-24 02:36] LABS: BLOOD UREA NITROGEN 6 MG/DL (7-18); CALCIUM LEVEL 8.9 MG/DL (8.5-10.1); CARBON DIOXIDE LEVEL 34 MEQ/L (21-32); CHLORIDE LEVEL 92 MEQ/L (98-107); CREATININE FOR GFR 0.66 MG/DL (0.55-1.30); GLOMERULAR FILTRATION RATE > 60.0 (>58); GLUCOSE, FASTING 280 MG/DL (70-100); SODIUM LEVEL 129 MEQ/L (136-145)
[2020-06-24] MEDS: LEVOTHYROXINE 100MCG TABLET (0.1MG) PO SCH (05:25)
[2020-06-24 05:30] VITALS: BP 138/84
[2020-06-24 06:09] LABS: OSMOLALITY URINE 435 MOSM/KG (500-800)
[2020-06-24 06:13] LABS: SODIUM,RANDOM URINE < 10 MEQ/L
[2020-06-24 07:00] VITALS: BP 107/77
[2020-06-24 08:05] LABS: HEMATOCRIT 47.2 % (36.0-47.0); HEMOGLOBIN 14.2 g/dl (12.0-15.5); MEAN CORPUSCULAR HGB CONC 30.1 g/dl (32.0-36.5); MEAN CORPUSCULAR VOLUME 86.4 fl (80.0-96.0); PLATELET COUNT, AUTOMATED 380 10^3/uL (150-450); RED BLOOD COUNT 5.46 10^6/uL (4.00-5.40); WHITE BLOOD COUNT 15.3 10^3/uL (4.0-10.0)
--- NOTE | 2020-06-24 08:06 | REP ---
INDICATION: hypoxia, Hx laryngeal CA r/o PE. Repeat dictation. Preliminary report is provided at the time of the exam by iva ORR. COMPARISON: Comparison study November 22, 2019.. TECHNIQUE: Contrast dose: 75 ML of Isovue [address] technique: Helical scanning is acquired and overlapping 1.5 mm and contiguous 3 mm axial images are reformatted. In addition, maximum intensity projection and multiplanar re-formation images are generated in sagittal and coronal imaging projections. FINDINGS: There is good opacification in the pulmonary arterial tree. There is no evidence of vessel cut off or filling defect to suggest pulmonary embolus. Homogeneous opacity is seen in the thoracic aorta. There is no evidence of aneurysm or dissection. Lung window settings demonstrate a new patchy reticulonodular interstitial changes in the lung mercedes. There is a peribronchovascular infiltrate in the right middle lobe perihilar region. There is similar patchy peribronchovascular infiltrate in the lingula and in the left lower lobe. These changes are new in the lung parenchyma since November 22, 2019. There is also mild bilateral hilar and mediastinal lymphadenopathy. This has progressed since the November study. The largest area of adenopathy is in the subcarinal region measuring 3 x 2 cm. No pleural or pericardial effusion is seen. No visible upper abdominal mass or adenopathy is seen. There is fatty infiltration of the liver and there are clips in the gallbladder fossa. The patient is status post prior tracheostomy. IMPRESSION: No CT evidence of pulmonary embolus. New patchy bilateral peribronchovascular infiltrates and diffuse reticulonodular pattern in the lung mercedes with progressive mediastinal and hilar adenopathy worrisome for neoplastic disease. <Electronically signed by Jacinto Brady > 06/24/20 0874
[2020-06-24 08:24] LABS: BLOOD UREA NITROGEN 6 MG/DL (7-18); CALCIUM LEVEL 9.1 MG/DL (8.5-10.1); CARBON DIOXIDE LEVEL 31 MEQ/L (21-32); CHLORIDE LEVEL 95 MEQ/L (98-107); CREATININE FOR GFR 0.63 MG/DL (0.55-1.30); GLOMERULAR FILTRATION RATE > 60.0 (>58); GLUCOSE, FASTING 233 MG/DL (70-100); POTASSIUM SERUM 4.8 MEQ/L (3.5-5.1); SODIUM LEVEL 131 MEQ/L (136-145)
[2020-06-24] MEDS ORDERED: AZITHROMYCIN 250MG TABLET PO SCH (09:00)
[2020-06-24] MEDS ORDERED: DOXYCYCLINE HYCLATE 100MG TABLET PO SCH (09:00)
[2020-06-24] MEDS: OMEPRAZOLE 20 MG CAP PO SCH (09:06)
[2020-06-24] MEDS: DULoxetine 30 MG CAP (CYMBALTA) PO SCH (09:06)
[2020-06-24] MEDS: predniSONE 20 MG TAB PO SCH (09:06)
[2020-06-24] MEDS: ENOXAPARIN 40MG/0.4ML SYRINGE (J1650 PER 10MG) SC SCH (09:07)
[2020-06-24] MEDS: MONTELUKAST 10 MG TAB PO SCH (09:07)
[2020-06-24] MEDS ORDERED: ALBUTEROL SULFATE 2.5 MG/0.5 ML INH NEB SOLN NEB PRN (11:30)
[2020-06-24] MEDS ORDERED: LORazepam 0.5 MG TAB PO PRN (11:45)
[2020-06-24] MEDS ORDERED: cefTRIAXone SOD 1 GM in D5W MINI-BAG PLUS 50 ML IV SCH (12:00)
[2020-06-24] MEDS: MELOXICAM (MOBIC) 7.5 MG TAB PO SCH (12:46)
[2020-06-24] MEDS: LABETALOL 100 MG TAB PO SCH (12:46)
--- NOTE | 2020-06-24 13:57 | IPNPDOC ---
Date Seen The patient was seen on 06/24/20. Progress Note SUBJECTIVE: Patient very tearful this AM, has a lot of stressors at home and now this hospitalization. Mild exp wheezing but doing well off O2. Add abx coverage, ATC nebulizer due to persistent wheezing. Swallowing evaluation ordered for concern for dysphagia. She denies incr SOB and states to feel slightly improved. Denies chest pain, fevers, chills, n/v. OBJECTIVE: PHYSICAL EXAMINATION: VITAL SIGNS: see below GENERAL: Difficult to understand due to stoma, appears tearful but NAD, resting in bed HEENT: PERRL, EOMI, Oral mucous membranes are moist without lesions. Stoma located in mid neck area is surrounded by erythema NECK: No JVD. No adenopathy, No thyromegaly CHEST/LUNGS: Scattered wheezing is appreciated in upper lobes bilaterally persist, mild. No R/R HEART:Regular rate and rhythm. No murmurs, rubs, or gallops are appreciated. Distal pulses are 2+. No carotid bruits appreciated. ABDOMEN: Obese, Soft, nontender, and nondistended. Bowel sounds are positive. No organomegaly is appreciated. No masses are appreciated. EXTREMITIES: No peripheral edema. There is no focal long bone tenderness or deformity. SKIN: The patients skin is warm and dry, without rashes or lesions. PSYCHIATRIC: Tearful/depressed mood NEUROLOGIC: The patient has 5/5 strength to the upper and lower extremities bilaterally. Sensation is intact throughout. Deep tendon reflexes are 2+ in all four extremities. There are no deficits to the cranial nerves. LABORATORY DATA: See below. IMAGING: CTA chest: No CT evidence of pulmonary embolus. New patchy bilateral peribronchovascular infiltrates and diffuse reticulonodular pattern in the lung mercedes with progressive mediastinal and hilar adenopathy worrisome for neoplastic disease. CXR: There is no acute cardiopulmonary disease. No change from the prior exam MICROBIOLOGY: Please see below. ASSESSMENT: This is a 39-year-old female with history of laryngeal cancer status post tracheostomy and now decannulated stoma experiencing dysphagia and repeated neck cellulitis at the site of the stoma who presents with 4 days shortness of breath and dyspnea on exertion found to have leukocytosis, hypoxia and positive for rhinovirus concerning for asthma exacerbation. PLAN: #Acute shortness of breath likely 2/2 to acute bronchitis/COPD exacerbation likely 2/2 to Enterovirus/rhinovirus -CTA chest: cannot r/o PNA, findings concerning for neoplastic disease? -Currently saturating well on RA, humidified, persistent mild-mod wheezing -Procalcitonin low so unlikely PNA -C/w ATC duonebs, albuterol PRN, fluticasone, prednisone -Discussed with Dr. Boston, patient's windrower operator, about abx and abnormal CT findings. Will need another CT in 4-6 weeks after discharge and f/u with Dr. Boston # Dysphagia with hx of laryngeal cancer s/p tracheostomy with decannulated stoma -According to pulmonary, she has needed dilation of stricture from laryngeal cancer for some time. Was told by ENT that she would have to go to [place] but she has not transportation to go. -Swallowing evaluation done, recommending cookie swallow -F/u results -Will attempt to touch base with Dr. Cortez, ENT . May need assessment inpatient. # Hyponatremia, acute -urine and serum osmolality completed -Slightly increased Na 131 this AM -F/u daily labs, TSH 6.77 -Starting on IVF. Can remeasure urine osmolality and sodium in 24 hours to differentiate between hypovolemic hyponatremia vs. other cause (glucocorticoid deficiency vs. SIADH vs. hypothyroidism # Type 2 diabetes: Hemoglobin A1c found to be 6.9% -Sugars slightly more elevated >200 likely steroid induced -Started on low dose levemir in AM. -Continue with sliding scale insulin and hypoglycemic protocol #Hypothyroidism: Likely related to previous neck radiation -TSH found to be 6.770, free T4 0.98 -C/w levothyroxin 200 mcg daily #Falling at home -Per , patient has been falling at home. -PT/OT. #GERD: -C/w omeprazole #Hypertension: -Continue home labetalol #Chronic pain, unspecified -Continue home Cymbalta, gabapentin #Depression -Very tearful in room, multiple life stressors -Denies HI/SI -C/w home med. Would definetly benefit from therapy, behavioral health referral by PCP. #DVT prophylaxis Lovenox DISPOSITION: Currently inpatient. PT/OT. Plan is discharge home when medically improved. VS, I&O, 24H, Fishbone Vital Signs/I&O Vital Signs Date Time Temp Pulse Resp B/P (MAP) Pulse Ox O2 Delivery O2 Flow Rate FiO2 06/24/20 12:46 65 138/88 06/24/20 10:30 5.0 28 06/24/20 07:00 98.2 20 96 Trach Collar I&O- Last 24 Hours up to 6 AM 06/24/20 06:00 Intake Total 300 ml Output Total 2400 ml Balance -2100 ml Laboratory Data 24H LABS Laboratory Tests 2 06/23/20 17:08: Blood Gas Bicarbonate Standard 27.9H, Arterial Blood pH 7.399, Arterial Blood Partial Pressure CO2 49.9H, Arterial Blood Partial Pressure O2 50.8L, Arterial Blood Total CO2 31.7H, Arterial Blood HCO3 30.1H, Arterial Blood Base Excess 4.2H, Arterial Blood Oxygen Saturation 88.7L 06/23/20 17:54: Immature Granulocyte % (Auto) 0.7, Neutrophils (%) (Auto) 79.1H, Lymphocytes (%) (Auto) 10.8L, Monocytes (%) (Auto) 9.0H, Eosinophils (%) (Auto) 0.2, Basophils (%) (Auto) 0.2, Neutrophils # (Auto) 13.9H, Lymphocytes # (Auto) 1.9, Monocytes # (Auto) 1.6H, Eosinophils # (Auto) 0.0, Basophils # (Auto) 0.0, Nucleated Red Blood Cells % (auto) 0.0, Anion Gap 5L, Glomerular Filtration Rate > 60.0, Estimated Mean Plasma Glucose 151H, Hemoglobin A1c 6.9, Lactic Acid Level 1.4, Calcium Level 9.4, Magnesium Level 2.1, Thyroid Stimulating Hormone (TSH) 6.770H, Free Thyroxine 0.98 06/23/20 23:54: Bedside Glucose (Misc Panel) 281H 06/24/20 00:22: Osmolality 290, Procalcitonin 0.11 06/24/20 02:01: Anion Gap 3L, Glomerular Filtration Rate > 60.0, Calcium Level 8.9 06/24/20 05:36: Urine Random Osmolality 435L, Urine Random Sodium < 10 06/24/20 07:44: Anion Gap 5L, Glomerular Filtration Rate > 60.0, Calcium Level 9.1, Nucleated Red Blood Cells % (auto) 0.0 06/24/20 11:35: Bedside Glucose (Misc Panel) 241H CBC/BMP Laboratory Tests 06/23/20 17:54 06/24/20 02:01 06/24/20 07:44 Microbiology Microbiology 06/23/20 Blood Culture, Received Pending 06/23/20 Respiratory Virus Panel (PCR) (JUAN PABLO) - Final, Complete Human Rhinovirus/Enterovirus 06/23/20 Blood Culture, Received Pending Current Medications Current Medications Medications (Trade) Dose Ordered Sig/Yamileth Route PRN Reason Start Time Stop Time Status Last Admin Dose Admin Albuterol Sulfate (Proventil Neb) 2.5 mg Q2HP PRN NEB SOB/WHEEZING 06/24/20 11:30 Albuterol/ Ipratropium (Combivent Respimat 100-20mcg) 4 puff Q20M INH 06/23/20 17:15 06/23/20 17:56 DC 06/23/20 17:47 Albuterol/ Ipratropium (Duoneb (Ipr 0.5mg/Alb 2.5mg)) 3 ml Q4HP PRN NEB SOB/WHEEZING 06/23/20 23:30 06/24/20 11:32 DC Albuterol/ Ipratropium (Duoneb (Ipr 0.5mg/Alb 2.5mg)) 3 ml RQ6H NEB 06/24/20 14:00 Azithromycin (Zithromax Tab) 250 mg DAILY PO 06/24/20 09:00 06/24/20 11:03 DC 06/24/20 09:07 Ceftriaxone Sodium 1 gm/ Dextrose 50 ml @ 100 mls/hr Q24H IV 06/24/20 12:00 Hold Dextrose (Dextrose 50%) 25 ml ASDIRECTED PRN IV SEE LABEL COMMENTS 06/23/20 23:00 Doxycycline Hyclate (Vibramycin) 100 mg BID PO 06/24/20 09:00 06/24/20 12:46 Duloxetine HCl (Cymbalta) 60 mg DAILY PO 06/24/20 09:00 06/24/20 09:06 Enoxaparin Sodium (Lovenox) 40 mg DAILY SC 06/24/20 09:00 06/24/20 09:07 Fluticasone Propionate (Flonase 0.05% Nasal [place]) 1 spray BIDP PRN NA NASAL CONGESTION 06/23/20 23:15 Gabapentin (Neurontin) 1,200 mg TID PO 06/23/20 21:00 06/24/20 09:06 Glucagon (Glucagon) 1 mg ASDIRECTED PRN SC SEE LABEL COMMENTS 06/23/20 23:00 Glucose (Glucose) 16 GM ASDIRECTED PRN PO SEE LABEL COMMENTS 06/23/20 23:00 Home Med (Med Rec Complete!) ASDIRECTED XX 06/23/20 23:15 06/23/20 23:05 DC Hydroxyzine HCl (Atarax) 10 mg Q8HP PRN PO ANXIETY 06/23/20 23:15 Insulin Human Lispro (HumaLOG INSULIN) See Protocol Table AC SC 06/24/20 07:30 06/24/20 12:46 Insulin Human Lispro (HumaLOG INSULIN) See Protocol Table QHS SC 06/23/20 21:00 06/24/20 00:49 Labetalol HCl (Normodyne, Trandate) 50 mg DAILY PO 06/24/20 09:00 06/24/20 12:46 Levothyroxine Sodium (Synthroid) 200 mcg DAILY@0600 PO 06/24/20 06:00 06/24/20 05:25 Lorazepam (Ativan) 0.25 mg BIDP PRN PO ANXIETY 06/24/20 11:45 06/24/20 12:46 Meloxicam (Mobic) 15 mg DAILY PO 06/24/20 09:00 06/24/20 12:46 Montelukast Sodium (Singulair) 10 mg DAILY PO 06/24/20 09:00 06/24/20 09:07 Omeprazole (PriLOSEC) 40 mg DAILY PO 06/24/20 09:00 06/24/20 09:06 Prednisone (Deltasone) 40 mg DAILY PO 06/24/20 09:00 06/24/20 09:06 Allergies Coded Allergies: cefuroxime (Verified Allergy, Intermediate, RASH/HIVES, 06/23/20) moxifloxacin (Verified Allergy, Intermediate, HIVES, 06/23/20) sulfamethoxazole (Verified Allergy, Intermediate, HIVES, 06/23/20) trimethoprim (Verified Allergy, Intermediate, HIVES, 06/23/20) Quinazolinones (Verified Allergy, Mild, RASH, 06/23/20) Xiomara Munoz MD Jun 24, 2020 13:57
[2020-06-24 14:00] VITALS: BP 138/82
[2020-06-24] MEDS: IPRATROPIUM 0.5MG/ALBUTEROL 2.5MG INH SOL UD 3ML (DUONEB) NEB SCH ×3 (14:00→23:13)
[2020-06-24] MEDS ORDERED: VARIBAR PUDDING 40% w/v 230ML TUBE As Ordered ONE (14:25)
[2020-06-24] MEDS ORDERED: VARIBAR NECTAR 40% w/v 240ML SUSP BTL As Ordered ONE (14:25)
[2020-06-24] MEDS ORDERED: BARIUM SULFATE 700 MG TABLET (E-Z-DISK) As Ordered ONE (14:26)
[2020-06-24] MEDS ORDERED: E-Z-PAQUE 96% w/w SUSP 176GM BTL As Ordered ONE (14:26)
--- NOTE | 2020-06-24 15:28 | REP ---
INDICATION: dysphagia. Patient is status post laryngectomy. Complaints of food getting stuck in the throat. History of laryngeal carcinoma. COMPARISON: None. TECHNIQUE: Lateral video fluoroscopy is provided in conjunction with the swallowing therapist. The 2.1 minutes of fluoroscopy time is utilized. FINDINGS: There is no evidence of significant oral transfer dysfunction or delay. No hypopharyngeal or pharyngeal stricturing or head swallowing restriction is observed. At the level of the thoracic inlet, there is an anteriorly projecting esophageal diverticulum with a fairly broad base. This shows retention of some swallowed barium and solid material. Retained material clears with swallowing of water. There is no evidence of extravasation. 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 Patient is post laryngectomy. No pharyngeal or hypopharyngeal restriction to swallowing. <Electronically signed by Jacinto Brady > 06/24/20 [id number]
[2020-06-24] MEDS: NS 1,000 ML IV SCH (15:42)
[2020-06-24 22:00] VITALS: BP 137/82
[2020-06-25] VITALS: BP 137/82
[2020-06-25] MEDS: NS 1,000 ML IV SCH ×2 (01:30→10:00)
[2020-06-25] MEDS ORDERED: NYSTATIN 100,000 UNITS/GM TOPICAL PWD 15 GM TOP PRN (02:30)
[2020-06-25] MEDS: guaiFENesin ER 600 MG TAB PO SCH ×2 (03:05→09:30)
[2020-06-25 05:56] LABS: HEMOGLOBIN 14.2 g/dl (12.0-15.5); MEAN CORPUSCULAR HEMOGLOBIN 25.7 pg (27.0-33.0); MEAN CORPUSCULAR VOLUME 88.6 fl (80.0-96.0); PLATELET COUNT, AUTOMATED 386 10^3/uL (150-450); RED BLOOD COUNT 5.53 10^6/uL (4.00-5.40); WHITE BLOOD COUNT 14.2 10^3/uL (4.0-10.0)
[2020-06-25 06:00] VITALS: BP 145/86
[2020-06-25] MEDS: LEVOTHYROXINE 100MCG TABLET (0.1MG) PO SCH (06:20)
[2020-06-25 06:22] LABS: BLOOD UREA NITROGEN 10 MG/DL (7-18); CALCIUM LEVEL 9.4 MG/DL (8.5-10.1); CARBON DIOXIDE LEVEL 32 MEQ/L (21-32); CHLORIDE LEVEL 97 MEQ/L (98-107); CREATININE FOR GFR 0.72 MG/DL (0.55-1.30); GLOMERULAR FILTRATION RATE > 60.0 (>58); GLUCOSE, FASTING 208 MG/DL (70-100); POTASSIUM SERUM 3.9 MEQ/L (3.5-5.1); SODIUM LEVEL 134 MEQ/L (136-145)
[2020-06-25] MEDS: IPRATROPIUM 0.5MG/ALBUTEROL 2.5MG INH SOL UD 3ML (DUONEB) NEB SCH (07:12)
[2020-06-25] MEDS ORDERED: LEVEMIR (INSULIN DETEMIR) 1 UNITS/0.01ML SC SCH (09:00)
[2020-06-25] MEDS ORDERED: MUCI600T31 PO (09:04)
[2020-06-25] MEDS ORDERED: PRED20TA PO (09:04)
[2020-06-25] MEDS: ENOXAPARIN 40MG/0.4ML SYRINGE (J1650 PER 10MG) SC SCH (09:26)
[2020-06-25] MEDS: HumaLOG INSULIN (NovoLOG) PER UNIT SC SCH ×2 (09:27→12:00)
[2020-06-25 09:29] VITALS: BP 180/105
[2020-06-25] MEDS: LABETALOL 100 MG TAB PO SCH (09:29)
[2020-06-25] MEDS: GABAPENTIN 300 MG CAP PO SCH (09:29)
[2020-06-25] MEDS: MELOXICAM (MOBIC) 7.5 MG TAB PO SCH (09:30)
[2020-06-25] MEDS: OMEPRAZOLE 20 MG CAP PO SCH (09:30)
[2020-06-25] MEDS: DULoxetine 30 MG CAP (CYMBALTA) PO SCH (09:30)
[2020-06-25] MEDS: predniSONE 20 MG TAB PO SCH (09:30)
[2020-06-25] MEDS: MONTELUKAST 10 MG TAB PO SCH (09:30)
--- NOTE | 2020-06-25 17:33 | DS.PDOC ---
Discharge Summary General Date of Admission Jun 23, 2020 at 23:06 Date of Discharge 06/25/20 Attending Physician: Xiomara Munoz MD Discharge Summary HISTORY OF PRESENT ILLNESS: Kathy Bradshaw is a 39 YO F with history of laryngeal cancer s/p laryngectomy, radiation and tracheostomy currently with decannulated stoma who presents to the ED with four days of difficulty breathing. The patient states that she has had difficulty getting around her house due to shortness of breath but denies any fevers, chills, nausea, vomiting or abdominal pain. She also has some congestion and wheezing. She recently was seen at an outside hospital and is currently undergoing treatment for pneumonia with Azithromycin and prednisone and notes only minimal improvement in her shortness of breath. She has been taking all of her other medication as prescribed. She denies any sick contacts or recent travel. In the ED, she was found to be saturating 83% on room air and on a walk test her saturation went down to the mid 70s. She is positive for rhinovirus. She was given Combivent and Solumedrol. She was admitted for acute bronchitis/acute respiratory failure 2/ to rhinovirus HOSPITAL COURSE: CT chest: No CT evidence of pulmonary embolus. New patchy bilateral peribronchovascular infiltrates and diffuse reticulonodular pattern in the lung mercedes with progressive mediastinal and hilar adenopathy worrisome for neoplastic disease. Patient was treated with humidified O2 to stoma and very qu ickly did not need additional O2 support. She received bedside speech and swallow evaluation for dysphagia which has been long standing. They recommended thin liquid, pureed diet and barium swallow. Unfortunately we do not do those on the weekend. I touched base with her director fraud, Dr. Boston, to discuss CT chest findings. 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 She has not been able to do that due to transportation issues. Dr. Boston would like to see patient back in office in 4- 6 weeks to reevaluate and repeat CT chest. By 06/25/20 patient was much improved. She was discharged home with prednisone PO and advised to f/u with PCP, ENT and pulmonary after weekend. PAST MEDICAL HISTORY: 1. History of laryngeal cancer status post laryngectomy and radiation in 2002 currently has a decannulated stoma 2. Diabetes mellitus type 2. 3. CVA in 2016 with no residual deficits. 4. Obesity. 5. Panic disorder with history of depression. 6. Gastroesophageal reflux disease (GERD). 7. Hyperlipidemia. 8. Asthma. 9. Hypothyroidism. 10. Unspecified psychiatric disorder PAST SURGICAL HISTORY: 1. Hysterectomy 2. Cholecystectomy 3. Laryngeal cancer surgery SOCIAL HISTORY: Tobacco use: Current smoker, smokes >1ppd Denies alcohol Reports recreational marijuana use FAMILY HISTORY: Reviewed and noncontributory ALLERGIES: Please see below. DISCHARGE MEDICATIONS: Please see below. PHYSICAL EXAMINATION: VITAL SIGNS: see below GENERAL: Difficult to understand due to stoma, resting in bed HEENT: PERRL, EOMI, Oral mucous membranes are moist without lesions. Stoma located in mid neck area is surrounded by erythema NECK: No JVD. No adenopathy, No thyromegaly CHEST/LUNGS: CTAB,. No R/R HEART:Regular rate and rhythm. No murmurs, rubs, or gallops are appreciated. Distal pulses are 2+. No carotid bruits appreciated. ABDOMEN: Obese, Soft, nontender, and nondistended. Bowel sounds are positive. No organomegaly is appreciated. No masses are appreciated. EXTREMITIES: No peripheral edema. There is no focal long bone tenderness or deformity. SKIN: The patients skin is warm and dry, without rashes or lesions. PSYCHIATRIC:mood and affect are appropriate NEUROLOGIC: The patient has 5/5 strength to the upper and lower extremities bilaterally. Sensation is intact throughout. Deep tendon reflexes are 2+ in all four extremities. There are no deficits to the cranial nerves. LABORATORY DATA: See below. IMAGING: CTA chest: No CT evidence of pulmonary embolus. New patchy bilateral peribronchovascular infiltrates and diffuse reticulonodular pattern in the lung mercedes with progressive mediastinal and hilar adenopathy worrisome for neoplastic disease. CXR: There is no acute cardiopulmonary disease. No change from the prior exam MICROBIOLOGY: Please see below. ASSESSMENT: This is a 39-year-old female with history of laryngeal cancer status post tracheostomy and now decannulated stoma experiencing dysphagia and repeated neck cellulitis at the site of the stoma who presents with 4 days shortness of breath and dyspnea on exertion found to have leukocytosis, hypoxia and positive for rhinovirus concerning for asthma exacerbation. PLAN: #Acute shortness of breath likely 2/2 to acute bronchitis/COPD exacerbation likely 2/2 to Enterovirus/rhinovirus -CTA chest: cannot r/o PNA, findings concerning for neoplastic disease? -Currently saturating well on RA, humidified, persistent mild-mod wheezing -Procalcitonin low so unlikely PNA -C/w prednisone, home inhalers -Discussed with Dr. Boston, patient's director fraud, about abx and abnormal CT findings. Will need another CT in 4-6 weeks after discharge and f/u with Dr. Boston # Dysphagia with hx of laryngeal cancer s/p tracheostomy with decannulated stoma -According to pulmonary, she has needed dilation of stricture from laryngeal cancer for some time. Was told by ENT that she would have to go to [place] but she has not transportation to go. -Swallowing evaluation done, recommending cookie swallow. Unable to do cookie swallow over the weekend here. -F/u results -Dr. Cortez, ENT did not recall her story. Due to weekend we were unable to request records. -It is recommended she f/u with ENT after weekend and initiate the process to be seen in [place]. She will need cookie swallow as o/p done to thoroughly assess degree of dysphagia and risk for aspiration -It is advised she keep with thin liquids, pureed diet. # Hyponatremia, acute and likely 2/2 to dehydration- improving -F/u with PCP # Type 2 diabetes: Hemoglobin A1c found to be 6.9% -Sugars slightly more elevated >200 likely steroid induced -F/u with PCP, home meds #Hypothyroidism: Likely related to previous neck radiation -TSH found to be 6.770, free T4 0.98 -C/w levothyroxin 200 mcg daily #GERD: -C/w omeprazole #Hypertension: -Continue home labetalol #Chronic pain, unspecified -Continue home Cymbalta, gabapentin #Depression -Very tearful in room, multiple life stressors -Denies HI/SI -C/w home med. Would definetly benefit from therapy, behavioral health referral by PCP. DISPOSITION: Discharged home today in improved condition. TIME SPENT ON DISCHARGE: Greater than 30 minutes. Vital Signs/I&Os Vital Signs Date Time Temp Pulse Resp B/P (MAP) Pulse Ox O2 Delivery O2 Flow Rate FiO2 06/25/20 09:29 64 180/105 06/25/20 09:00 5.0 28 06/25/20 06:00 97.6 18 93 Trach Collar I&O- Last 24 Hours up to 6 AM 06/25/20 06:00 Intake Total 3090 ml Output Total 925 ml Balance 2165 ml Laboratory Data Labs 24H Laboratory Tests 2 06/24/20 20:09: Bedside Glucose (Misc Panel) 251H 06/25/20 05:17: Nucleated Red Blood Cells % (auto) 0.0, Anion Gap 5L, Glomerular Filtration Rate > 60.0, Calcium Level 9.4 06/25/20 11:17: Osmolality 291 CBC/BMP Laboratory Tests 06/25/20 05:17 FSBS Laboratory Tests Test 06/24/20 20:09 Range/Units Bedside Glucose (Misc Panel) 251 70-105 MG/DL Microbiology Microbiology 06/23/20 Blood Culture - Preliminary, Resulted No growth after 24 hours . All specim... 06/23/20 Respiratory Virus Panel (PCR) ([facility]UAN PABLO) - Final, Complete Human Rhinovirus/Enterovirus 06/23/20 Blood Culture - Preliminary, Resulted No growth after 24 hours . All specim... Discharge Medications Scheduled Budesonide (Budesonide) 1 Mg/2 Ml Ampul.neb, 2 MG INH BID, (Reported) Duloxetine Hcl (Duloxetine HCl) 60 Mg Capsule.dr, 60 MG PO DAILY, (Reported) Gabapentin (Gabapentin) 600 Mg Tab, 1,200 MG PO TID, (Reported) Guaifenesin (Mucinex) 600 Mg Tab.er.12h, 600 MG PO BID Labetalol HCl (Labetalol HCl) 100 Mg Tablet, 50 MG PO DAILY, (Reported) Levothyroxine Sodium (Levothyroxine Sodium) 200 Mcg Tablet, 200 MCG PO DAILY, (Reported) Meloxicam (Meloxicam) 15 Mg Tablet, 15 MG PO DAILY, (Reported) Montelukast Sodium (Montelukast Sodium) 10 Mg Tablet, 10 MG PO DAILY, (Reported) Omeprazole (Omeprazole) 40 Mg Cap, 40 MG PO DAILY, (Reported) Prednisone (Prednisone) 20 Mg Tablet, 40 MG PO DAILY Prednisone taper: 40 mg PO x 4 days, 20 mg PO x 3 days Scheduled PRN Fluticasone Propionate (Flonase Allergy Relief) 9.9 Ml [place].susp, 1 SPRAY NA BID PRN for NASAL CONGESTION, (Reported) Hydroxyzine HCl (Hydroxyzine HCl) 10 Mg Tablet, 10 MG PO Q8H PRN for ANXIETY, (Reported) Ipratropium/Albuterol Sulfate (Iprat-Albut 0.5-3(2.5) mg/3 ml) 1 Harriet Harriet, 3 ML INH QID PRN for SHORTNESS OF BREATH, (Reported) Sodium Chloride (Sodium Chloride 0.9% Saline Neb) 3 Ml Vial.neb, 3 ML INH TID PRN for SHORTNESS OF BREATH, (Reported) TAKES WITH DUONEB NEEDED Triamcinolone Acet (Triamcinolone Acetonide 0.1% Crm) 80 Gm Cream..g., 1 DOSE TOP BID PRN for REDNESS/IRRITATION, (Reported) APPLY TO STOMA Allergies Coded Allergies: cefuroxime (Verified Allergy, Intermediate, RASH/HIVES, 06/23/20) moxifloxacin (Verified Allergy, Intermediate, HIVES, 06/23/20) sulfamethoxazole (Verified Allergy, Intermediate, HIVES, 06/23/20) trimethoprim (Verified Allergy, Intermediate, HIVES, 06/23/20) Quinazolinones (Verified Allergy, Mild, RASH, 06/23/20) Xiomara Munoz MD Jun 25, 2020 17:33
== END 2020-06-25 12:19 | disposition home or self-care (01) | DRG 141 ==
LOC: M ED 16:11 → M ED INP 23:06 → ENRESERV 06-24 05:55 → M MSPAV 06-24 07:00
PROVIDERS: ADMIT Internal Medicine; ATTEND Internal Medicine
DX: J45.901 Unspecified asthma with (acute) exacerbation (principal); J44.0 Chronic obstructive pulmonary disease with (acute) lower respiratory infection; Z93.0 Tracheostomy status; E87.1 Hypo-osmolality and hyponatremia; R13.10 Dysphagia, unspecified; J44.1 Chronic obstructive pulmonary disease with (acute) exacerbation; E11.9 Type 2 diabetes mellitus without complications; I10 Essential (primary) hypertension; F32.9 Major depressive disorder, single episode, unspecified; R29.6 Repeated falls; B97.89 Other viral agents as the cause of diseases classified elsewhere; E89.0 Postprocedural hypothyroidism; J20.9 Acute bronchitis, unspecified; K21.9 Gastro-esophageal reflux disease without esophagitis; F17.200 Nicotine dependence, unspecified, uncomplicated; G89.29 Other chronic pain; Z79.899 Other long term (current) drug therapy; Z88.1 Allergy status to other antibiotic agents; Z88.2 Allergy status to sulfonamides; Z20.828 Contact with and (suspected) exposure to other viral communicable diseases; Z85.21 Personal history of malignant neoplasm of larynx; Z86.73 Personal history of transient ischemic attack (TIA), and cerebral infarction without residual deficits; E66.9 Obesity, unspecified; F41.0 Panic disorder [episodic paroxysmal anxiety]

== ENCOUNTER 2020-08-25 21:41 | Emergency (ER) | payer OTHER ==
[~2020-08-25] VITALS: Ht 180.3 cm; Wt 116.7 kg
[~2020-08-25 21:41] MED LIST changes: +AZIT-10 PO; +AZIT-12; +BUDE2SUS3 INH; +GABA-282 PO; -GABA-843 PO; -GLYB5TA PO; +GLYB5TAB6; +GLYB5TAB6 PO; -LISI-538 PO; +LISI20TA33 PO; +METH-1164 PO; -METH1TAB40 PO; +MONT10TA10 PO; -MONT5TAB2 PO; +MUCI600T31 PO; +NS3NEB INH; +PRED20TA
--- OUTSIDE RECORDS SUMMARY | 2020-08-25 21:52 | CCD | Continuity of Care Document ---
Author Author Kathy Mckeon Organization Unknown Address Unknown Phone [phone] Care Team Providers Care Facility Practice Specialist Name Role Phone Phyllis Gamez AUTM [phone] [facility] 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/2020 Pure hypercholesterolemia TOYA Swenson, PNP Onset: 10/2019 Cerebral artery occlusion TOYA Swenson, PNP Onset: 10/2019 Hemorrhage of rectum and anus TOYA Swenson, PNP Onset: 05/25/2020 FH: Arthritis TOYA Swenson, PNP Onset: 0 Family history of asthma TOYA Swenson, PNP Onset: 10/2019 Mental disorder TOYA Swenson, PNP Onset: 0 Family history of diabetes mellitus TOYA Swenson, PNP Onset: 05/25/2020 Family history of ischemic heart disease and other diseases of the circulatory system TOYA Swenson, PNP Onset: 05/25/2020 Family history of familial hypercholesterolemia TOYA Swenson, PNP Onset: 05/25/2020 Family history of endocrine disorders TOYA Swenson, PN P Onset: 05/25/2020 Family history of malignant neoplasm of thoracic cavit y structure TOYA Swenson, PNP Onset: 05/25/2020 Social History Type Date Description Comments Sex Unknown Tobacco Use Start: Unknown Current Cigarette Smoker 1/2 Pac k Daily Tobacco Use Start: Unknown Never Smoked Cigars Tobacco Use Start: Unknown Never Smoked A Pipe Tobacco Use Start: Unknown Never Used Smokeless Tobacco Tobacco Use Start: Unknown Patient is a current smoker, smo kes every day Recreational Drug Use Denies Drug Use Allergies, Adverse Reactions, Alerts Active Allergies Reaction Severity Comments Date Quinolones 05/16/2020 Sulfa Antibiotics 05/16/2020 Medications Active Medications SIG Qnty Indications Ordering Provide r Date Nystatin [id number]/GM Powder apply to rash in folds of skin on abdomen 2-3 times a day as needed 60gm TOYA Swenson, PNP Azithromycin 250mg Tablets Take Two Tablets By Mouth AT Once On The First Day Then Take One Daily Thereafter Unknown Mucus Relief ER 600mg Tablets ER 1 2HR Take One Tablet By Mouth Twice A Day For 10 Days Unkn own Prednisone 20mg Tablets Take 2 Tablets By Mouth Once Daily For 4 Days Then 1 Tablet Daily For 3 Days Unknown Metformin HCL 1000mg Tablets 1 by mouth twice a day 60tabs TOYA Swenson, PNP 00 Ventolin HFA 108(90Base) mcg/Act A erosol 2 puff every 4-6 hours as needed 8gm ABEBA Swenson C, PNP Fluticasone Propionate 50mcg/Act Suspension [place] 1 [place] In Each Nostril Once Daily Unknown Triamcinolone Acetonide 0.1% Cream Apply To Stoma Skin Two Times A Day Unknown Levothyroxine Sodium 200mcg Tablet s Take One Tablet By Mouth Every Day On An Empty Stomach Unknown Hydroxyzine HCL 10mg Tablets Take One Tablet By Mouth Every 8 Hours as Needed For Anxiety Unknown Budesonide 1mg/2ML Suspension Inhale [address]ials [address] Nebulizer Two Times A Day Unknown Ipratropium [place]/Albuterol Sulfate 0.5-2.5(3)mg/3ML Solution [place] 1 Vial Via Nebulizer 4 Times A Day as Needed Unknown ZigabidtoSurvival Media Ultra Strips Use To Test Four Times A Day Unknown Howcast Ultra 2 w/Device Kit Use To Test Four Times A Day Unknown Onetouch Ultrasoft Lancets Misc Use To Test Four Times A Day Unknown Sodium Chloride 0.9% Nebulizer Inhale [address] Nebulizer 2 To 3 Times A Day as Needed With Albuterol Unknown Onetouch Delica Plus Lancets Extra Fine 33G Plus 33G Misc Use To Test Four Times A Day Unknown Cyclobenzaprine HCL 10mg Tablets take one tablet by mouth three times a day as needed for muscle spasms 90tabs Phyllis Gamez, ANP-BC, PNP Omeprazole 40mg Capsules DR Take One Capsule By Mouth Every Day Unknown Montelukast Sodium 10mg Tablets Take One Tablet By Mouth Every Day Unknown Meloxicam 15mg Tablets Take One Tablet By Mouth Every Day Unknown Glyburide 5mg Tablets Take One Tablet By Mouth Every Day With Food Unknown Gabapentin 600mg Tablets Take Two Tablets By Mouth Three Times A Day Unknown Duloxetine HCL 60mg Caps DR Part Take One Capsule By Mouth Every Day Unknown Immunizations CPT Code Status Date Vaccine Lot # 30869 Given 05/16/2020 Influenza (>= 6 Months) P.F. Vaccine 9HT27 Vital Signs Date Vital Result Comment 05/16/2020 1:31pm BP Systolic 130 mmHg BP Diastolic 72 mmHg Heart Rate 80 /min Body Temperature 98.1 F Respiratory Rate 18 /min O2 % BldC Oximetry 90 % Weight 275.00 lb Weight 124.740 kg Height 71 inches 5'11" BMI (Body Mass Index) 38.4 kg/m2 BSA (Body Surface Area) 2.41 m2 01/27/2020 12:49pm BP Systolic 122 mmHg BP Diastolic 78 mmHg Heart Rate 82 /min O2 % BldC Oximetry 96 % Height 71 inches Results Test Acquired Date Facility Test Result H/L Range Note CBC With Differential 06/23/2020 [facility] White Blood Count 17.6 10 High 4.0-10.0 Red Blood Count 5.33 10 Normal 4.00-5.40 Hemoglobin 14.4 g/dL Normal 12.0-15.5 Hematocrit 45.8 % Normal 36.0-47.0 Mean Corpuscular Volume 85.9 fl Normal 80.0-96.0 Mean Corpuscular Hemoglobin 27.0 pg Normal 27.0-33.0 Mean Corpuscular HGB Conc 31.4 g/dL Low 32.0-36.5 Red Cell Distribution Width 14.8 % High 11.5-14.5 Platelet Count, Automated 338 10 Normal 150-450 Neutrophils % 79.1 % High 36.0-66.0 Lymph % 10.8 % Low 24.0-44.0 [place] % 9.0 % High 0.0-5.0 Eos % 0.2 % Normal 0.0-3.0 Baso % 0.2 % Normal 0.0-1.0 Immature Granulocyte % 0.7 % Normal 0-3.0 Nucleated Red Blood Cell % 0.0 % Normal 0-0 Neutrophils # 13.9 10 High 1.5-8.5 Lymph # 1.9 10 Normal 1.5-5.0 [place] # 1.6 10 High 0.0-0.8 Eos # 0.0 10 Normal 0.0-0.5 Baso # 0.0 10 Normal 0.0-0.2 Basic Metabolic Profile 06/23/2020 [facility] Glucose, Fasting 206 mg/dL High 70-100 Blood Urea Nitrogen 6 mg/dL Low 7-18 Creatinine For GFR 0.68 mg/dL Normal 0.55-1.30 Glomerular Filtration Rate > 60.0 Normal >58 1 Sodium Level 128 mEq/L Low 136-145 Potassium Serum 4.1 mEq/L Normal 3.5-5.1 Chloride Level 92 mEq/L Low 98-107 Carbon Dioxide Level 31 mEq/L Normal 21-32 Anion Gap 5 mEq/L Low 8-16 Calcium Level 9.4 mg/dL Normal 8.5-10.1 Laboratory test finding 06/23/2020 [facility] Lactic Acid Sepsis Protocol 1.4 mmol/L Normal 0.4-2.0 2 Respiratory Panel 06/23/2020 [facility] Respiratory Panel This respiratory <SEE NOTE> 3 Arterial Blood Gas 06/23/2020 [facility] ABG pH (Arterial) 7.399 units Normal 7.350-7.450 ABG Partial Pressure Co2 49.9 mmHg High 35.0-45.0 ABG Partial Pressure O2 50.8 mmHg Low 75.0-100.0 ABG Total Co2 31.7 mEq/L High 22.0-29.0 ABG Hco3 30.1 mEq/L High 22.0-26.0 ABG Base Excess 4.2 High -2.0-2.0 ABG Standard Hco3 27.9 mEq/L High 22.0-26.0 ABG O2 Saturation 88.7 % Low 95.0-99.0 Inhouse Ua 05/16/2020 In Office Ua Color yellow Ua Appearance clear Spec Jewell 1.000 Ua PH Test Strip 8 Leukocytes negative Ua Nitrate negative Ua Protein negative Inhouse Glucose normal Ua Ketones negative Urobilinogen normal Blood negative CBC with Auto Differential 02/19/2020 N2N/CCD Impor t Lymphocytes% (Auto) 29.9 20.0-55.0 Monocytes% (Auto) 8.6 4.0-12.0 Eosinophils% (Auto) 2.0 1.0-8.0 Basophils% (Auto) 0.5 0.0-2.0 Immature Granulocytes% (Auto) 0.3 0.0-2.0 Neutrophils# (Auto) 7.01 High 1.50-6.20 Lymphocytes# (Auto) 3.57 1.20-4.00 Monocytes# (Auto) 1.03 High 0.00-0.90 Eosinophils# (Auto) 0.24 0.00-0.50 Basophils# (Auto) 0.06 0.00-0.20 Immature Granulocytes# (Auto) 0.04 0.00-7.00 White Blood Count 12.0 High 3.5-10.5 Red Blood Count 5.30 High 3.90-5.00 Hemoglobin 15.7 High 12.0-15.5 Hematocrit 45.8 High 34.9-44.5 Mean Corpuscular Volume 86.4 81.2-95.1 Mean Corpuscular Hgb 29.6 25.6-32.2 Mean Corpuscular Hgb Conc 34.3 32.0-36.0 Red Cell Distribution Width 12.5 11.9-15.5 Platelet Count 304 x103/uL 150-450 Mean Platelet Volume 10.7 9.4-12.4 Neutrophils% (Auto) 58.7 31.0-71.0 HCG,Ur 02/19/2020 N2N/CCD Import HCG,Ur Negative Negative Urinalysis Auto w/Microscopy 02/19/2020 N2N/CCD Imp ort Bacteria,Urine Rare None Seen WBC,Urine Rare None Seen Nitrite,Urine Negative Negative Leukocyte Esterase,Urine Negative Negative Urobilinogen,Urine 0.2 0.2-1.0 Bilirubin,Urine Negative Negative Blood,Urine Negative Negative Ketones,Urine Negative Negative Glucose,Urine Negative Negative Protein,Urine Negative Negative pH,Urine 6.0 5.0-8.0 Specific Jewell,Urine <=1.005 1.005-1.030 Clarity,Urine Clear Clear Color,Urine Yellow Colorl-Dk Y Lipase 02/19/2020 N2N/CCD Import Lipase 152 U/L 73-393 Troponin I 02/19/2020 N2N/CCD Import Troponin I < 0.017 0.000-0.056 Amylase 02/19/2020 N2N/CCD Import Amylase 18 U/L Low 25-115 Comprehensive Metabolic Pnl 02/19/2020 N2N/CCD Impo rt Albumin Level 3.6 3.4-5.0 Total Protein 7.4 6.0-8.2 Alkaline Phosphatase 81 U/L 38-126 4 SGPT(Alt) 30 U/L 12-78 5 Sgot(Ast) 20 U/L 15-37 6 Bilirubin,Total 0.3 0.1-1.9 Calcium 8.9 8.5-10.1 Glucose Level 124 mg/dL High 60-99 7 GFR > 60 >60 Creatinine,Serum 0.7 0.7-1.2 BUN 9 mg/dL 7-18 Anion Gap 9.6 5.0-16.0 Carbon Dioxide Co2 27.4 21-32 Chloride 93 mmol/L Low 98-107 Potassium 3.5 3.5-5.1 Sodium 130 mmol/L Low 136-145 B-Type Natriuretic Peptide BNP 02/19/2020 N2N/CCD I mport B-Type Natriuretic Peptide BNP 79.0 <125 8 Liver Profile 02/09/2020 N2N/CCD Import Albumin 3.9 GM/DL 3.2-5.2 Total Protein 7.2 GM/DL 6.4-8.2 Bilirubin,Direct 0.1 MG/DL 0.0-0.2 Bilirubin,Total 0.4 MG/DL 0.2-1.0 Alkaline Phosphatase 80 U/L 45-117 Alt/SGPT 35 U/L 12-78 Ast/Sgot 21 U/L 7-37 Albumin/Globulin Ratio 1.2 1.2-2.2 NT-Pro BNP 02/09/2020 N2N/CCD Import NT-Pro BNP 11 PG/ML <125 Thyroxine (T4) 02/09/2020 N2N/CCD Import Thyroxine (T4) 14.2 Ug/DL High 4.5-12.0 Thyroid Stimulating Hormone 02/09/2020 N2N/CCD Impo rt Thyroid Stimulating Hormone 0.103 uIU/ML Low 0.358-3.740 Lactic Acid Sepsis Protocol 02/09/2020 N2N/CCD Impo rt Lactic Acid Sepsis Protocol 2.7 Mmol/L Critical high 0.4-2.0 CBC With Differential 02/09/2020 N2N/CCD Import Lymph % 12.4 % Low 24.0-44.0 Neutrophils % 78.3 % High 36.0-66.0 Platelet Count, Automated 284 10 150-450 Red Cell Distribution Width 12.6 % 11.5-14.5 Mean Corpuscular HGB Conc 32.3 g/dl 32.0-36.5 [place] % 6.3 % High 0.0-5.0 Eos % 1.9 % 0.0-3.0 Baso % 0.6 % 0.0-1.0 Immature Granulocyte % 0.5 % 0-3.0 Nucleated Red Blood Cell % 0.0 % 0-0 Neutrophils # 8.6 10 High 1.5-8.5 Lymph # 1.4 10 Low 1.5-5.0 [place] # 0.7 10 0.0-0.8 Eos # 0.2 10 0.0-0.5 Baso # 0.1 10 0.0-0.2 Mean Corpuscular Hemoglobin 29.6 pg 27.0-33.0 Mean Corpuscular Volume 91.6 fl 80.0-96.0 Hematocrit 46.7 % 36.0-47.0 Hemoglobin 15.1 g/dl 12.0-15.5 Red Blood Count 5.10 10 4.00-5.40 White Blood Count 10.9 10 High 4.0-10.0 iSTAT Chem8+ Panel 02/09/2020 N2N/CCD Import iSTAT HCT 47.0 % 38.0-51.0 iSTAT Glucose 198 MG/DL High 70-105 iSTAT Sodium 133 Meq/L Low 136-145 iSTAT Potassium 4.3 Meq/L 3.5-5.1 iSTAT CA++ 4.8 MG/DL 4.5-5.3 iSTAT Chloride 96 Meq/L Low 98-109 iSTAT Co2 26.0 mm/L 23.0-27.0 iSTAT BUN 11 MG/DL 8-26 iSTAT Creatinine 0.5 MG/DL Low 0.6-1.3 Sars-CoV-2 (Covid 19) 02/08/2020 N2N/CCD Import Sars-CoV-2 (Covid 19) Negative - Sars-CoV-2 (Covid19) 9 1 Units are mL/min/1.73 m2 Chronic Kidney Disease Staging per NKF: Stage I & II GFR >=60 Normal to Mildly Decreased Stage III GFR 30-59 Moderately Decreased Stage IV GFR 15-29 Severely Decreased Stage V GFR <15 Very Little GFR Left ESRD GFR <15 on CONDITIONING MACHINE OPERATOR 2 Y/N query for Sepsis Lactate Rule: Y 3 This respiratory PCR panel d etects Influenza A H1, H3 and 2009 H1 viruses, Influenza B virus, Resp iratory Syncytial Virus, Human metapneumovirus, Parainfluenza virus 1, 2, 3 and 4, Adenovirus, Rhinovirus/Enterovirus, Coronavirus HKU1, NL63, OC43, 229E and SARS-CoV-2 (COVID 19), Bordetella pertussis, Bordetella parapertussis, Mycoplasma pneumoniae and Chlamydia pneumoniae. POSITIVE by MULTIPLEXED NUCLEIC ACID PCR SARS-CoV-2 (COVID 19) NEGATIVE - SARS-CoV-2 (COVID19) ORGANISM 1: HUMAN RHINOVIRUS/ENTEROVIRUS Rhinovirus is noted as causing the "common cold", but may also be involved in precipitating asthma attacks and severe complications. Enteroviruses can be associated with different clinical manifestations, including non-specific respiratory illness. These viruses are closely related and therefore not able to be reliably differentiated. ORGANISM 1: HUMAN RHINOVIRUS/ENTEROVIRUS 4 can increase Alkal ine Phosp levels up to 2 times the normal adult value. Normal values for children and adolescents are 2 to 3 times the normal adult value. 5 Note the following drug inte rference: Sulfasalazine Sulfapyridine Can see falsely depressed Can see falsely elevated result with up to 29% results with up to 10% decrease in measurement increase in measurement Recommend patients be collected for this test prior to administration of either drug. 6 Note the following drug inte rference: Sulfasalazine Sulfapyridine Can see falsely depressed Can see falsely elevated result with up to 10% results with up to 10% decrease in measurement increase in measurement Recommend patients be collected for this test prior to administration of either drug. 7 Reference range is only appl icable when patient is fasting Note the following drug interference: Sulfasalazine Sulfapyridine Can see falsely depressed Can see falsely elevated result with up to 17% results with up to 11% decrease in measurement increase in measurement Recommend patients be collected for this test prior to administration of either drug. 8 Results of this test should always be used in conjunction with the patients medical history, clinical presentation, and other findings. 9 This lab was ordered by [facility] and reported by [facility]. 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 TOYA Swenson, PNP 06/29/2020 J44.9 Chronic obstructive pulmonary di sease, unspecified TOYA Swenson, PNP 06/29/2020 K21.9 Gastro-esophageal reflux disease without esophagitis TOYA Swenson, PNP 06/29/2020 G89.4 Chronic pain syndrome TOYA Swenson, PNP 06/29/2020 F41.9 Anxiety disorder, unspecified TOYA Brambila, PNP 06/29/2020 Z79.899 Other shelter (current) drug t herapy TOYA Swenson, PNP 05/16/2020 Z00.01 Encounter for genera l adult medical examination with abnormal findings TOYA Swenson, PNP 05/16/2020 R13.19 Other dysphagia KIKO Swenson, PNP 05/16/2020 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 TOYA Swenson, PNP 05/16/2020 R30.0 Dysuria KIKO Swenson, PNP 05/16/2020 I10 Essential (primary) hypertension TOYA Swenson, PNP 05/16/2020 E03.9 Hypothyroidism, unspecified TOYA Swenson, PNP 05/16/2020 J44.9 Chronic obstructive pulmonary di sease, unspecified TOYA Swenson, PNP 05/16/2020 K21.9 Gastro-esophageal reflux disease without esophagitis TOYA Swenson, PNP 05/16/2020 G89.4 Chronic pain syndrome TOYA Swenson, PNP 05/16/2020 F41.9 Anxiety disorder, unspecified TOYA Brambila, PNP 05/16/2020 J30.2 Other seasonal allergic rhinitis TOYA Swenson, PNP 05/16/2020 Z79.899 Other shelter (current) drug t herapy TOYA Swenson, PNP 05/16/2020 Z23 Encounter for immunization TOYA Swenson, PNP 05/16/2020 F33.1 Major depressive disorder, recur rent, moderate KIKO Swenson, PNP 05/16/2020 E11.65 Type 2 diabetes mellitus with hy perglycemia KIKO Swenson, PNP 05/16/2020 E78.00 Pure hypercholesterolemia, unspe cified TOYA Swenson, PNP 05/16/2020 I63.9 Cerebral infarction, unspecified TOYA Swenson, PNP 05/16/2020 K62.5 Hemorrhage of anus and rectum TOYA Brambila, PNP 05/16/2020 Z82.61 Family history of arthritis TOYA Swenson, PNP 05/16/2020 Z82.5 Family history of as thma and other chronic lower respiratory diseases TOYA Swenson, PNP 05/16/2020 Z81.8 Family history of other mental a nd behavioral disorders TOYA Swenson, PNP 05/16/2020 Z83.3 Family history of diabetes melli tus TOYA Swenson, PNP 05/16/2020 Z82.49 Family history of is chemic heart disease and other diseases of the circulatory system TOYA Swenson PNP 05/16/2020 Z83.42 Family history of familial hyper cholesterolemia TOYA Swenson, IRIS 05/16/2020 Z83.49 Family history of ot her endocrine, nutritional and metabolic diseases TOYA Swenson, IRIS 05/16/2020 Z80.2 Family history of ma lignant neoplasm of other respiratory and intrathoracic organs TOYA Swenson, IRIS Plan of Treatment Future Appointment(s):* 08/19/2020 7:00 am - TOYA Swenson PNP at [facility] * 08/12/2020 7:00 am - [facility] 05/16/2020 - TOYA Swenson PNP* Z00.01 Encounter for general adult medical examination with abnormal findings* Comments:* Encouraged to exercise on a regular basis and watch her weight. She is due for her routine labs. Goal is to keep her health issues stable so she can remain active and live independently. * Follow up:* Return for fasting labs FU in 3 months, fasting labs 1 week prior * R13.19 Other dysphagia* Comments:* Difficulty swallowing due to tracheostomy not healed completely.We will continue to monitor. 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 She will benefit from maintaining a low sodium diet. * E03.9 Hypothyroidism, unspecified* Comments:* She is due for her labs. Routine labs ordered. The patient was advised to continue current medication regimen. We will need to monitor her TSH periodically. * Follow up:* Return for fasting labs FU in 3 months, fasting labs 1 week prior * J44.9 Chronic obstructive pulmonary disease, unspecified* Comments:* Currently stable.To continue current medication and plan of care.We will continue to monitor. * K21.9 Gastro-esophageal reflux disease without esophagitis* Comments:* She was advised to continue with her current medication. Avoid spicy food and control diet as advised. * G89.4 Chronic pain syndrome* Comments:* Currently stable.To continue current medication and plan of care.We will continue to monitor. * Follow up:* Return for fasting labs FU in 3 months, fasting labs 1 week prior * F41.9 Anxiety disorder, unspecified* Comments:* The patient is relatively doing well on current regimen without any adverse effects, will continue the same. We will continue to monitor. * J30.2 Other seasonal allergic rhinitis* Comments:* Currently stable.To continue her allergy medication as needed.We will continue to monitor. * Z79.899 Other shelter (current) drug therapy* Comments:* Patient to continue to follow the current plan of care and to look for any new or worsening symptoms. We will continue to monitor through periodic blood work. * Follow up:* FU in 3 months, fasting labs first. * Z23 Encounter for immunization* Comments:* Administered flu vaccination after reviewing the side-effects. Handouts provided. The patient tolerated well. * F33.1 Major depressive disorder, recurrent, moderate * E11.65 Type 2 diabetes mellitus with hyperglycemia * E78.00 Pure hypercholesterolemia, unspecified * I63.9 Cerebral infarction, unspecified * K62.5 Hemorrhage of anus and rectum * Z82.61 Family history of arthritis * Z82.5 Family history of asthma and other chronic lower respiratory diseases * Z81.8 Family history of other mental and behavioral disorders * Z83.3 Family history of diabetes mellitus * Z82.49 Family history of ischemic heart disease and other diseases of the circulatory system * Z83.42 Family history of familial hypercholesterolemia * Z83.49 Family history of other endocrine, nutritional and metabolic diseases * Z80.2 Family history of malignant neoplasm of other respiratory and intrathoracic organs Functional Status Description No Information Available Mental Status Description No Information Available Referrals Description No Information Available
--- OUTSIDE RECORDS SUMMARY | 2020-08-25 21:52 | CCD | Continuity of Care Document ---
Author Author Kathy GAMEZ Organization Unknown Address [address] [place] [address] [address] [place] [address] Phone [phone] Care Team Providers Care In Flight Technician Name Role Phone Phyllis Gamez AUTM [phone] [facility] 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 Onset: 05/25/2020 Pure hypercholesterolemia TOYA Swenson, PNP Onset: 10/2019 Cerebral artery occlusion TOYA Swenson PNP Onset: 10/2019 Hemorrhage of rectum and anus TOYA Swenson, PNP Onset: 05/25/2020 FH: Arthritis TOYA Swenson, PNP Onset: 0 Family history of asthma TOYA Swenson PNP Onset: 10/2019 Mental disorder TOYA Swenson, PNP Onset: 0 Family history of diabetes mellitus TOYA Swenson, PNP Onset: 05/25/2020 Family history of ischemic heart disease and other diseases of the circulatory system TOYA Swenson PNP Onset: 05/25/2020 Family history of familial hypercholesterolemia TOYA Swenson, PNP Onset: 05/25/2020 Family history of endocrine disorders TOYA Swenson PN P Onset: 05/25/2020 Family history of [...] Qnty Indications Ordering Provide r Date Nystatin 727193Nudf/GM Powder apply to rash in folds of [...] Swenson C, PNP Fluticasone Propionate 50mcg/Act Suspension [place] 1 [place] In Each Nostril Once Daily Unknown Triamcinolone [...] Nebulizer Two Times A Day Unknown Ipratropium [place]/Albuterol Sulfate 0.5-2.5(3)mg/3ML Solution [place] 1 Vial Via Nebulizer 4 Times A Day as Needed Unknown Positronics Strips Use To Test Four Times A Day Unknown Onetouch Ultra 2 w/Device Kit Use To Test Four Times A Day Unknown Onetouch Ultrasoft Lancets Misc Use To Test Four Times A Day Unknown Sodium Chloride 0.9% Nebulizer Inh[place] 1 Vial Via Nebulizer 2 To 3 Times A Day as Needed With Albuterol Unknown ContactMonkeytouch Delica Plus Lancets Extra Fine 33G Plus [...] CPT Code Status Date Vaccine Lot # [id number] Given 05/16/2020 Influenza (>= 6 Months) P.F. [...] H/L Range Note CBC With Differential 06/23/2020 [facility] White Blood Count 17.6 10 High 4.0-10.0 [...] 36.0-66.0 Lymph % 10.8 % Low 24.0-44.0 [place] % 9.0 % High 0.0-5.0 Eos % 0.2 % Normal 0.0-3.0 Baso % 0.2 % Normal 0.0-1.0 Immature Granulocyte % 0.7 % Normal 0-3.0 Nucleated Red Blood Cell % 0.0 % Normal 0-0 Neutrophils # 13.9 10 High 1.5-8.5 Lymph # 1.9 10 Normal 1.5-5.0 [place] # 1.6 10 High 0.0-0.8 Eos # 0.0 10 Normal 0.0-0.5 Baso # 0.0 10 Normal 0.0-0.2 Basic Metabolic Profile 06/23/2020 [facility] Glucose, Fasting 206 mg/dL High 70-100 Blood [...] mg/dL Normal 8.5-10.1 Laboratory test finding 06/23/2020 [facility] Lactic Acid Sepsis Protocol 1.4 mmol/L Normal 0.4-2.0 2 Respiratory Panel 06/23/2020 [facility] Respiratory Panel This respiratory <SEE NOTE> 3 Arterial Blood Gas 06/23/2020 [facility] ABG pH (Arterial) 7.399 units Normal 7.350-7.450 [...] Ua Color yellow Ua Appearance clear Spec [place] 1.000 Ua PH Test Strip 8 Leukocytes [...] Protein,Urine Negative Negative pH,Urine 6.0 5.0-8.0 Specific [place],Urine <=1.005 1.005-1.030 Clarity,Urine Clear Clear Color,Urine Yellow [...] Mean Corpuscular HGB Conc 32.3 g/dl 32.0-36.5 [place] % 6.3 % High 0.0-5.0 Eos % 1.9 % 0.0-3.0 Baso % 0.6 % 0.0-1.0 Immature Granulocyte % 0.5 % 0-3.0 Nucleated Red Blood Cell % 0.0 % 0-0 Neutrophils # 8.6 10 High 1.5-8.5 Lymph # 1.4 10 Low 1.5-5.0 [place] # 0.7 10 0.0-0.8 Eos # 0.2 [...] Little GFR Left ESRD GFR <15 on [place] MASSEUSE 2 Y/N query for Sepsis Lactate Rule: [...] [facility] and reported by [facility]. Procedures Date Code Description Status 05/16/2020 58352 Admin Patient Focused Health Ris k Assessment Instrument Completed 05/16/2020 16057 Brief Emotional/Beha v Assessment W/ Scoring Doc Per Standard Inst Completed 02/19/2020 72658 Computer Tomography, Abdomen And Pelvis W/O Contrast [...] unspecified TOYA Brambila, PNP 06/29/2020 Z79.899 Other computer terminal operator (current) drug t herapy TOYA Swenson, PNP [...] rhinitis TOYA Swenson, PNP 05/16/2020 Z79.899 Other long-term (current) drug t herapy TOYA Swenson, PNP [...] Family history of familial hyper cholesterolemia TOYA Swenson PNP 05/16/2020 Z83.49 Family history of ot her endocrine, nutritional and metabolic diseases TOYA Swenson PNP 05/16/2020 Z80.2 Family history of ma lignant neoplasm of other respiratory and intrathoracic organs TOYA Swenson PNP Plan of Treatment Future Appointment(s):* 08/19/2020 7:00 am - TOYA Swenson PNP at [facility] * 08/12/2020 7:00 am - [facility] at [facility] 05/16/2020 - TOYA Swenson PNP* Z00.01 [...] will continue to monitor. * Z79.899 Other computer terminal operator (current) drug therapy* Comments:* Patient to continue [...]
--- OUTSIDE RECORDS SUMMARY | 2020-08-25 21:52 | CCD | Continuity of Care Document ---
Author Author Kathy Mckeon Organization Unknown Address Unknown Phone [phone] Care Team Providers Care Cut Off Tender Glass Name Role Phone Phyllis Gamez AUTM [phone] [facility] 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: 05/25/2020 Pure hypercholesterolemia TOYA Swenson, PNP [...] Qnty Indications Ordering Provide r Date Nystatin 607119Usjc/GM Powder apply to rash in folds of [...] Swenson C, PNP Fluticasone Propionate 50mcg/Act Suspension [place] 1 [place] In Each Nostril Once Daily Unknown Triamcinolone [...] Nebulizer Two Times A Day Unknown Ipratropium [place]/Albuterol Sulfate 0.5-2.5(3)mg/3ML Solution [place] 1 Vial Via Nebulizer 4 Times A Day as Needed Unknown [employer] Ultra Strips Use To Test Four Times A Day Unknown Played Ultra 2 w/Device Kit Use To Test [...] CPT Code Status Date Vaccine Lot # [id number] Given 05/16/2020 Influenza (>= 6 Months) P.F. [...] H/L Range Note CBC With Differential 06/23/2020 [facility] White Blood Count 17.6 10 High [...] 36.0-66.0 Lymph % 10.8 % Low 24.0-44.0 [place] % 9.0 % High 0.0-5.0 Eos % 0.2 % Normal 0.0-3.0 Baso % 0.2 % Normal 0.0-1.0 Immature Granulocyte % 0.7 % Normal 0-3.0 Nucleated Red Blood Cell % 0.0 % Normal 0-0 Neutrophils # 13.9 10 High 1.5-8.5 Lymph # 1.9 10 Normal 1.5-5.0 [place] # 1.6 10 High 0.0-0.8 Eos # 0.0 10 Normal 0.0-0.5 Baso # 0.0 10 Normal 0.0-0.2 Basic Metabolic Profile 06/23/2020 [facility] Glucose, Fasting 206 mg/dL High 70-100 [...] mg/dL Normal 8.5-10.1 Laboratory test finding 06/23/2020 [facility] Lactic Acid Sepsis Protocol 1.4 mmol/L Normal 0.4-2.0 2 Respiratory Panel 06/23/2020 [facility] Respiratory Panel This respiratory <SEE NOTE> 3 Arterial Blood Gas 06/23/2020 [facility] ABG pH (Arterial) 7.399 units Normal [...] Ua Color yellow Ua Appearance clear Spec [place] 1.000 Ua PH Test Strip 8 Leukocytes [...] Protein,Urine Negative Negative pH,Urine 6.0 5.0-8.0 Specific [place],Urine <=1.005 1.005-1.030 Clarity,Urine Clear Clear Color,Urine Yellow [...] Mean Corpuscular HGB Conc 32.3 g/dl 32.0-36.5 [place] % 6.3 % High 0.0-5.0 Eos % 1.9 % 0.0-3.0 Baso % 0.6 % 0.0-1.0 Immature Granulocyte % 0.5 % 0-3.0 Nucleated Red Blood Cell % 0.0 % 0-0 Neutrophils # 8.6 10 High 1.5-8.5 Lymph # 1.4 10 Low 1.5-5.0 [place] # 0.7 10 0.0-0.8 Eos # 0.2 [...] Little GFR Left ESRD GFR <15 on OFFICE CLINICIAN 2 Y/N query for Sepsis Lactate Rule: [...] findings. 9 This lab was ordered by [facility] and reported by [facility]. Procedures Date Code Description Status 05/16/2020 54514 Admin Patient Focused Health Ris k Assessment Instrument Completed 05/16/2020 29559 Brief Emotional/Beha v Assessment W/ Scoring Doc Per Standard Inst Completed 02/19/2020 27563 Computer Tomography, Abdomen And Pelvis W/O Contrast [...] unspecified TOYA Brambila, PNP 06/29/2020 Z79.899 Other longterm (current) drug t herapy TOYA Swenson, PNP [...] rhinitis TOYA Swenson, PNP 05/16/2020 Z79.899 Other longterm (current) drug t herapy TOYA Swenson, PNP [...] and other diseases of the circulatory system TYOA Swenson PNP 05/16/2020 Z83.42 Family history of familial hyper cholesterolemia TOYA Swenson, IRIS 05/16/2020 Z83.49 Family history of ot her endocrine, nutritional and metabolic diseases TOYA Swenson, IRIS 05/16/2020 Z80.2 Family history of ma lignant neoplasm of other respiratory and intrathoracic organs TOYA Swenson, IRIS Plan of Treatment Future Appointment(s):* 08/19/2020 7:00 am - TOYA Swenson PNP at [facility] * 08/12/2020 7:00 am - [facility] at [facility] 05/16/2020 - TOYA Swenson PNP* Z00.01 Encounter [...] will continue to monitor. * Z79.899 Other longterm (current) drug therapy* Comments:* Patient to continue [...]
--- OUTSIDE RECORDS SUMMARY | 2020-08-25 21:54 | CCD ---
Author Author [facility] Organization [facility] Address Unknown Phone Unavailable Care Team Providers Care Manometer Technician Name Role Phone PETROFF, TIGIST PA Unavailable Unavailable PETROFF, TIGIST PA Unavailable Unavailable PETROFF, TIGIST PA Unavailable Unavailable PETROFF, TIGIST PA Unavailable Unavailable PETROFF, TIGIST PA Unavailable Unavailable PETROFF, TIGIST PA Unavailable Unavailable PETROFF, TIGIST PA Unavailable Unavailable PETROFF, TIGIST PA Unavailable Unavailable SYMENOW, G CHRISTOPHER PA Unavailable Unavailable SYMENOW, G CHRISTOPHER PA Unavailable Unavailable SYMENOW, G CHRISTOPHER PA Unavailable Unavailable SYMENOW, G CHRISTOPHER PA Unavailable Unavailable SYMENOW, G CHRISTOPHER PA Unavailable Unavailable SYMENOW, G CHRISTOPHER PA Unavailable Unavailable SYMENOW, G CHRISTOPHER PA Unavailable Unavailable SYMENOW, G CHRISTOPHER PA Unavailable Unavailable SYMENOW, G CHRISTOPHER PA Unavailable Unavailable SYMENOW, G CHRISTOPHER PA Unavailable Unavailable SYMENOW, G CHRISTOPHER PA Unavailable Unavailable SYMENOW, G CHRISTOPHER PA Unavailable Unavailable SYMENOW, G CHRISTOPHER PA Unavailable Unavailable SYMENOW, G CHRISTOPHER PA Unavailable Unavailable SYMENOW, G CHRISTOPHER PA Unavailable Unavailable SYMENOW, G CHRISTOPHER PA Unavailable Unavailable SYMENOW, G CHRISTOPHER PA Unavailable Unavailable MIRANDA, RUSH SUKUMAR PA Unavailable Unavailable MIRANDA, RUSH SUKUMAR PA Unavailable Unavailable MIRANDA, RUSH SUKUMAR PA Unavailable Unavailable MIRANDA, RUSH SUKUMAR PA Unavailable Unavailable MIRANDA, RUSH SUKMUAR PA Unavailable Unavailable MIRANDA, RUSH SUKUMAR PA Unavailable Unavailable MIRANDA, RUSH SUKUMAR PA Unavailable Unavailable MIRANDA, RUSH SUKUMAR PA Unavailable Unavailable MIRANDA, RUSH SUKUMAR PA Unavailable Unavailable MIRANDA, RUSH SUKUMAR PA Unavailable Unavailable MIRANDA, RUSH SUKUMAR PA Unavailable Unavailable MIRANDA, RUSH SUKUMAR PA Unavailable Unavailable MIRANDA, RUSH SUKUMAR PA Unavailable Unavailable MIRANDA, RUSH SUKUMAR PA Unavailable Unavailable MIRANDA, RUSH SUKUMAR PA Unavailable Unavailable MIRANDA, RUSH SUKUMAR PA Unavailable Unavailable MIRANDA, RUSH SUKUMAR PA Unavailable Unavailable MIRANDA, RUSH SUKUMAR PA Unavailable Unavailable MIRANDA, RUSH SUKUMAR PA Unavailable Unavailable MIRANDA, RUSH SUKUMAR PA Unavailable Unavailable MIRANDA, RUSH SUKUMAR PA Unavailable Unavailable MIRANDA, RUSH SUKUMAR PA Unavailable Unavailable MIRANDA, RUSH SUKUMAR PA Unavailable Unavailable MIRANDA, RUSH SUKUMAR PA Unavailable Unavailable MIRANDA, RUSH SUKUMAR PA Unavailable Unavailable MIRANDA, RUSH SUKUMAR PA Unavailable Unavailable MIRANDA, RUSH SUKUMAR PA Unavailable Unavailable MIRANDA, RUSH SUKUMAR PA Unavailable Unavailable MIRANDA, RUSH SUKUMAR PA Unavailable Unavailable MIRANDA, RUSH SUKUMAR PA Unavailable Unavailable MIRANDA, RUSH SUKUMAR PA Unavailable Unavailable MIRANDA, RUSH SUKUMAR PA Unavailable Unavailable MIRANDA, RUSH SUKUMAR PA Unavailable Unavailable MIRANDA, RUSH SUKUMAR PA Unavailable Unavailable MIRANDA, RUSH SUKUMAR PA Unavailable Unavailable MIRANDA, RUSH SUKUMAR PA Unavailable Unavailable MIRANDA, RUSH SUKUMAR PA Unavailable Unavailable MIRANDA, RUSH SUKUMAR PA Unavailable Unavailable MIRANDA, RUSH SUKUMAR PA Unavailable Unavailable MIRANDA, RUSH SUKUMAR PA Unavailable Unavailable MIRANDA, RUSH SUKUMAR PA Unavailable Unavailable MIRANDA, RUSH SUKUMAR PA Unavailable Unavailable Savage, R Braxton PA Unavailable Unavailable Savage, R Braxton PA Unavailable Savage, R Braxton PA Unavailable Savage, R Braxton PA Unavailable Saavge, R Braxton PA Unavailable Savage, R Braxton PA Unavailable Savage, R Braxton PA Unavailable Savage, R Braxton PA Unavailable Savage, R Braxton PA Unavailable Abriss, B Chang LOPEZ Unavailable Unavailable Abriss, B Chang LOPEZ Unavailable Unavailable Abriss, B Chang LOPEZ Unavailable Unavailable Abriss, Simi Downing MD Unavailable Unavailable Abriss, B Chang LOPEZ Unavailable Unavailable Abriss, B Chang LOPEZ Unavailable Unavailable Abriss, Simi Downing MD Unavailable Unavailable Abriss, B Chang LOPEZ Unavailable Unavailable Abriss, B Chang LOPEZ Unavailable Unavailable Abriss, B Chang LOPEZ Unavailable Unavailable Abriss, B Chang LOPEZ Unavailable Unavailable Abriss, B Chang LOPEZ Unavailable Unavailable Abriss, B Chang LOPEZ Unavailable Unavailable Abriss, B Chang LOPEZ Unavailable Unavailable Abriss, B Chang LOPEZ Unavailable Unavailable Abriss, B Chang LOPEZ Unavailable Unavailable Abriss, B Chang LOPEZ Unavailable Unavailable Abriss, B Chang LOPEZ Unavailable Unavailable Sarthak, A Adina PARKING LOT SPOTTER Unavailable Unavailable Sarthak, A Adina PARKING LOT SPOTTER Unavailable Unavailable Sarthak, A Adina PARKING LOT SPOTTER Unavailable Unavailable Sarthak, A Adina PARKING LOT SPOTTER Unavailable Unavailable Sarthak, A Adina PARKING LOT SPOTTER Unavailable Unavailable Satrhak, A Adina PARKING LOT SPOTTER Unavailable Unavailable Sarthak, A Adina PARKING LOT SPOTTER Unavailable Unavailable Sarthak, A Adina PARKING LOT SPOTTER Unavailable Unavailable Sarthak, A Adina PARKING LOT SPOTTER Unavailable Unavailable Sarthak, A Adina PARKING LOT SPOTTER Unavailable Unavailable Sarthak, A Adina PARKING LOT SPOTTER Unavailable Unavailable Sarthak, A Adina PARKING LOT SPOTTER Unavailable Unavailable Sarthak, A Adina PARKING LOT SPOTTER Unavailable Unavailable Sarthak, A Adina PARKING LOT SPOTTER Unavailable Unavailable Sarthak, A Adina PARKING LOT SPOTTER Unavailable Unavailable Sarthak, A Adina PARKING LOT SPOTTER Unavailable Unavailable Sarthak, A Adina PARKING LOT SPOTTER Unavailable Unavailable Sarthak, A Adina PARKING LOT SPOTTER Unavailable Unavailable Sarthak, A Adina PARKING LOT SPOTTER Unavailable Unavailable Sarthak, A Adina PARKING LOT SPOTTER Unavailable Unavailable Sarthak, A Adina PARKING LOT SPOTTER Unavailable Unavailable Sarthak, A Adina PARKING LOT SPOTTER Unavailable Unavailable Sarthak, A Adina PARKING LOT SPOTTER Unavailable Unavailable Sarthak, A Adina PARKING LOT SPOTTER Unavailable Unavailable Sarthak, A Adina PARKING LOT SPOTTER Unavailable Unavailable Sarthak, A Adina PARKING LOT SPOTTER Unavailable Unavailable Sarthak, A Adina PARKING LOT SPOTTER Unavailable Unavailable Sarthak, A Adina PARKING LOT SPOTTER Unavailable Unavailable Sarthak, A Adina PARKING LOT SPOTTER Unavailable Unavailable Sarthak, A Adina PARKING LOT SPOTTER Unavailable Unavailable Sarthak, A Adina PARKING LOT SPOTTER Unavailable Unavailable Sarthak, A Adina PARKING LOT SPOTTER Unavailable Unavailable Sarthak, A Adina PARKING LOT SPOTTER Unavailable Unavailable Sarthak, A Adina PARKING LOT SPOTTER Unavailable Unavailable Sarthak, A Adina PARKING LOT SPOTTER Unavailable Unavailable Sarthak, A Adina PARKING LOT SPOTTER Unavailable Unavailable Sarthak, A Adina PARKING LOT SPOTTER Unavailable Unavailable Sarthak, A Adina PARKING LOT SPOTTER Unavailable Unavailable Sarthak, A Adina PARKING LOT SPOTTER Unavailable Unavailable Sarthak, A Adina PARKING LOT SPOTTER Unavailable Unavailable Sarthak, A Adina PARKING LOT SPOTTER Unavailable Unavailable Sarthak, A Adina PARKING LOT SPOTTER Unavailable Unavailable Sarthak, A Adina PARKING LOT SPOTTER Unavailable Unavailable Sarthak, A Adina PARKING LOT SPOTTER Unavailable Unavailable ZEGIL, D MARBELLA PARKING LOT SPOTTER Unavailable Unavailable ZEGIL, D MARBELLA PARKING LOT SPOTTER Unavailable Unavailable ZEGIL, D MARBELLA PARKING LOT SPOTTER Unavailable Unavailable Marilyn Gamez Phyllis ANP-BC Unavailable Unavailable Marilyn Gamez Phyllis ANP-BC Unavailable Unavailable Marilyn Gamez Phyllis ANP-BC Unavailable Unavailable Marilyn Gamez Phyllis ANP-BC Unavailable Unavailable Marilyn Gamez Phyllis ANP-BC Unavailable Unavailable Marilyn Gamez Phyllis ANP-BC Unavailable Unavailable Marilyn Gamez Phyllis ANP-BC Unavailable Unavailable Marilyn Gamez Phyllis ANP-BC Unavailable Unavailable Franco, Marilyn Phyllis ANP-BC Unavailable Unavailable Franco, Marilyn Phyllis ANP-BC Unavailable Unavailable Franco, Marilyn Phyllis ANP-BC Unavailable Unavailable Franco, Marilyn Phyllis ANP-BC Unavailable Unavailable Franco, Marilyn Phyllis ANP-BC Unavailable Unavailable Franco, Marilyn Phyllis ANP-BC Unavailable Unavailable Franco, Marilyn Phyllis ANP-BC Unavailable Unavailable Franco, Marilyn Phyllis ANP-BC Unavailable Unavailable Franco, Marilyn Phyllis ANP-BC Unavailable Unavailable Franco, Marilyn Phyllis ANP-BC Unavailable Unavailable Franco, Marilyn Phyllis ANP-BC Unavailable Unavailable Franco, Marilyn Phyllis ANP-BC Unavailable Unavailable Franco, Marilyn Phyllis ANP-BC Unavailable Unavailable Franco, Marilyn Phyllis ANP-BC Unavailable Unavailable Franco, Marilyn Phyllis ANP-BC Unavailable Unavailable Franco, Marilyn Phyllis ANP-BC Unavailable Unavailable Franco, Marilyn Phyllis ANP-BC Unavailable Unavailable Franco, Marilyn Phyllis ANP-BC Unavailable Unavailable Franco, Marilyn Phyllis ANP-BC Unavailable Unavailable Franco, Marilyn Phyllis ANP-BC Unavailable Unavailable Franco, Marilyn Phyllis ANP-BC Unavailable Unavailable Franco, Marilyn Phyllis ANP-BC Unavailable Unavailable Franco, Marilyn Phyllis ANP-BC Unavailable Unavailable Franco, Marilyn Phyllis ANP-BC Unavailable Unavailable Franco, Marilyn Phyllis ANP-BC Unavailable Unavailable Franco, Marilyn Phyllis ANP-BC Unavailable Unavailable Franco, Marilyn Phyllis ANP-BC Unavailable Unavailable Franco, Marilyn Phyllis ANP-BC Unavailable Unavailable Franco, Marilyn Phyllis ANP-BC Unavailable Unavailable Franco, Marilyn Phyllis ANP-BC Unavailable Unavailable Franco, Marilyn Phyllis ANP-BC Unavailable Unavailable Franco, Marilyn Phyllis ANP-BC Unavailable Unavailable Franco, Marilyn Phyllis ANP-BC Unavailable Unavailable Franco, Marilyn Phyllis ANP-BC Unavailable Unavailable Franco, Marilyn Phyllis ANP-BC Unavailable Unavailable Franco, Marilyn Phyllis ANP-BC Unavailable Unavailable Franco, Marilyn Phyllis ANP-BC Unavailable Unavailable Franco, Marilyn Phyllis ANP-BC Unavailable Unavailable Franco, Marilyn Phyllis ANP-BC Unavailable Unavailable Franco, Marilyn Phyllis ANP-BC Unavailable Unavailable Franco, Marilyn Phyllis ANP-BC Unavailable Unavailable Franco, Marilyn Phyllis ANP-BC Unavailable Unavailable Franco, Marilyn Phyllis ANP-BC Unavailable Unavailable FrancoMarilyn Phyllis ANP-BC Unavailable Unavailable Franco, Marilyn Phyllis ANP-BC Unavailable Unavailable Franco, Marilyn Phyllis ANP-BC Unavailable Unavailable Franco, Marilyn Phyllis ANP-BC Unavailable Unavailable Franco, Marilyn Phyllis ANP-BC Unavailable Unavailable Franco, Marilyn Phyllis ANP-BC Unavailable Unavailable Franco, Marilyn Phyllis ANP-BC Unavailable Unavailable Franco, Marilyn Phyllis ANP-BC Unavailable Unavailable Franco, Marilyn Phyllis ANP-BC Unavailable Unavailable Franco, Marilyn Phyllis ANP-BC Unavailable Unavailable Franco, Marilyn Phyllis ANP-BC Unavailable Unavailable Franco, Marilyn Phyllis ANP-BC Unavailable Unavailable Franco, Marilyn Phyllis ANP-BC Unavailable Unavailable Luz Marina Boston MD Unavailable Unavailable Luz Marina [place] MD Unavailable Unavailable Luz Marina [place] MD Unavailable Unavailable Luz Marina [place] MD Unavailable Unavailable Luz Marina [place] MD Unavailable Unavailable Luz Marina [place] MD Unavailable Unavailable Luz Marina [place] MD Unavailable Unavailable Luz Marina [place] MD Unavailable Unavailable Luz Marina [place] MD Unavailable Unavailable Luz Marina [place] MD Unavailable Unavailable Luz Marina [place] MD Unavailable Unavailable Luz Marina [place] MD Unavailable Unavailable Luz Marina [place] MD Unavailable Unavailable Luz Marina [place] MD Unavailable Unavailable Luz Marina [place] MD Unavailable Unavailable Luz Marina [place] MD Unavailable Unavailable Luz Marina [place] MD Unavailable Unavailable Luz Marina [place] MD Unavailable Unavailable Luz Marina [place] MD Unavailable Unavailable Luz Marina [place] MD Unavailable Unavailable Luz Marina [place] MD Unavailable Unavailable Luz Marina [place] MD Unavailable Unavailable Luz Marina [place] MD Unavailable Unavailable Luz Marina [place] MD Unavailable Unavailable Luz Marina [place] MD Unavailable Unavailable MIRANDARUSH MONTANO SUKUMAR PA Unavailable Unavailable MIRANDA, RUSH SUKUMAR PA Unavailable Unavailable MIRANDA, RUSH SUKUMAR PA Unavailable Unavailable MIRANDA, RUSH SUKUMAR PA Unavailable Unavailable MIRANDA, RUSH SUKUMAR PA Unavailable Unavailable MIRANDA, RUSH SUKUMAR PA Unavailable Unavailable MIRANDA, RUSH SUKUMAR PA Unavailable Unavailable MIRANDA, RUSH SUKUMAR PA Unavailable Unavailable MIRANDA, RUSH SUKUMAR PA Unavailable Unavailable MIRANDA, RUSH SUKUMAR PA Unavailable Unavailable MIRANDA, RUSH SUKUMAR PA Unavailable Unavailable MIRANDA, RUSH SUKUMAR PA Unavailable Unavailable MIRANDA, RUSH SUKUMAR PA Unavailable Unavailable MIRANDA, RUSH SUKUMAR PA Unavailable Unavailable MIRANDA, RUSH SUKUMAR PA Unavailable Unavailable MIRANDA, RUSH SUKUMAR PA Unavailable Unavailable MIRANDA, RUSH SUKUMAR PA Unavailable Unavailable MIRANDA, RUSH SUKUMAR PA Unavailable Unavailable MIRANDA, RUSH SUKUMAR PA Unavailable Unavailable MIRANDA, RUSH SUKUMAR PA Unavailable Unavailable MIRANDA, RUSH SUKUMAR PA Unavailable Unavailable PRIYANKA YOUSIF JR Unavailable Unavailable BACA SR, JOSE SORENSEN MD Unavailable Unavailable BACA SR, JOSE SORENSEN MD Unavailable Unavailable BACA SR, JOSE SORENSEN MD Unavailable Unavailable BACA SR, JOSE SORENSEN MD Unavailable Unavailable BACA SR, JOSE SORENSEN MD Unavailable Unavailable BACA SR, JOSE SORENSEN MD Unavailable Unavailable BACA SR, JOSE SORENSEN MD Unavailable Unavailable BACA SR, JOSE SORENSEN MD Unavailable Unavailable BACA SR, JOSE SORENSEN MD Unavailable Unavailable BACA SR, JOSE SORENSEN MD Unavailable Unavailable BACA SR, JOSE SORENSEN MD Unavailable Unavailable BACA SR, JOSE SORENSEN MD Unavailable Unavailable BACA SR, JOSE SORENSEN MD Unavailable Unavailable BACA SR, JOSE SORENSEN MD Unavailable Unavailable BACA SR, JOSE SORENSEN MD Unavailable Unavailable BACA SR, JOSE SORENSEN MD Unavailable Unavailable BACA SR, JOSE SORENSEN MD Unavailable Unavailable BACA SR, JOSE SORENSEN MD Unavailable Unavailable BACA SR, JOSE SORENSEN MD Unavailable Unavailable BACA SR, JOSE SORENSEN MD Unavailable Unavailable BACA SR, JOSE SORENSEN MD Unavailable Unavailable BACA SR, JOSE SORENSEN MD Unavailable Unavailable BACA SR, JOSE SORENSEN MD Unavailable Unavailable BACA SR, JOSE SORENSEN MD Unavailable Unavailable BACA SR, JOSE SORENSEN MD Unavailable Unavailable BACA SR, JOSE SORENSEN MD Unavailable Unavailable BACA SR, JOSE SORENSEN MD Unavailable Unavailable BACA SR, JOSE SORENSEN MD Unavailable Unavailable BACA SR, JOSE SORENSEN MD Unavailable Unavailable BACA SR, JOSE SORENSEN MD Unavailable Unavailable BACA SR, JOSE SORENSEN MD Unavailable Unavailable BACA SR, JOSE SORENSEN MD Unavailable Unavailable BACA SR, JOSE SORENSEN MD Unavailable Unavailable BACA SR, JOSE SORENSEN MD Unavailable Unavailable BACA SR, JOSE SORENSEN MD Unavailable Unavailable BACA SR, JOSE SORENSEN MD Unavailable Unavailable BACA SR, JOSE SORENSEN MD Unavailable Unavailable BACA SR, JOSE SORENSEN MD Unavailable Unavailable BACA SR, JOSE SORENSEN MD Unavailable Unavailable BACA SR, JOSE SORENSEN MD Unavailable Unavailable BACA SR, JOSE SORENSEN MD Unavailable Unavailable BACA SR, JOSE SORENSEN MD Unavailable Unavailable BACA SR, JOSE SORENSEN MD Unavailable Unavailable BACA SR, JOSE SORENSEN MD Unavailable Unavailable BACA SR, JOSE SORENSEN MD Unavailable Unavailable BACA SR, JOSE SORENSEN MD Unavailable Unavailable BACA SR, JOSE SORENSEN MD Unavailable Unavailable BACA SR, JOSE SORENSEN MD Unavailable Unavailable BACA SR, JOSE SORENSEN MD Unavailable Unavailable BACA SR, JOSE SORENSEN MD Unavailable Unavailable BACA SR, JOSE SORENSEN MD Unavailable Unavailable BACA SR, JOSE SORENSEN MD Unavailable Unavailable BACA SR, JOSE SORENSEN MD Unavailable Unavailable BACA SR, JOSE SORENSEN MD Unavailable Unavailable Marzouk, F Micha Unavailable Unavailable Marzouk, F Micha Unavailable Unavailable Marzouk, F Micha Unavailable Unavailable Marzouk, F Micha Unavailable Unavailable Marzouk, F Micha Unavailable Unavailable Marzouk, F Micha Unavailable Unavailable Marzouk, F Micha Unavailable Unavailable Marzouk, F Micha Unavailable Unavailable Marzouk, F Micha Unavailable Unavailable Marzouk, F Micha Unavailable Unavailable Marzouk, F Micha Unavailable Unavailable Marzouk, F Micha Unavailable Unavailable Marzouk, F Micha Unavailable Unavailable Marzouk, F Micha Unavailable Unavailable Marzouk, F Micha Unavailable Unavailable Marzouk, F Micha Unavailable Unavailable Marzouk, F Micha Unavailable Unavailable Marzouk, F Micha Unavailable Unavailable Marzouk, F Micha Unavailable Unavailable Marzouk, F Micha Unavailable Unavailable Marzouk, F Micha Unavailable Unavailable Marzouk, F Micha Unavailable Unavailable Marzouk, F Micha Unavailable Unavailable Marzouk, F Micha Unavailable Unavailable Marzouk, F Micha Unavailable Unavailable Marzouk, F Micha Unavailable Unavailable Marzouk, F Micha Unavailable Unavailable Marzouk, F Micha Unavailable Unavailable Marzouk, F Micha Unavailable Unavailable Marzouk, F Micha Unavailable Unavailable Marzouk, F Micha Unavailable Unavailable Marzouk, F Micha Unavailable Unavailable Marzouk, F Micha Unavailable Unavailable Marzouk, F Micha Unavailable Unavailable Marzouk, F Micha Unavailable Unavailable Marzouk, F Micha Unavailable Unavailable Marzouk, F Micha Unavailable Unavailable Marzouk, F Micha Unavailable Unavailable Marzouk, F Micha Unavailable Unavailable Marzouk, F Micha Unavailable Unavailable Marzouk, F Micha Unavailable Unavailable Marzouk, F Micha Unavailable Unavailable Marzouk, F Micha Unavailable Unavailable Marzouk, F Micha Unavailable Unavailable Marzouk, F Micha Unavailable Unavailable Marzouk, F Micha Unavailable Unavailable Marzouk, F Micha Unavailable Unavailable Marzouk, F Micha Unavailable Unavailable Marzouk, F Micha Unavailable Unavailable Marzouk, F Micha Unavailable Unavailable Marzouk, F Micha Unavailable Unavailable Marzouk, F Micha Unavailable Unavailable Marzouk, F Micha Unavailable Unavailable Marzouk, F Micha Unavailable Unavailable Marzouk, F Micha Unavailable Unavailable Marzouk, F Micha Unavailable Unavailable Marzouk, F Micha Unavailable Unavailable Marzouk, F Micha Unavailable Unavailable Marzouk, F Micha Unavailable Unavailable Joseph Frederick MD Unavailable Unavailable Joseph Frederick MD Unavailable Unavailable Joseph Frederick MD Unavailable Unavailable Joseph Frederick MD Unavailable Unavailable Joseph Frederick MD Unavailable Unavailable Joseph Frederick MD Unavailable Unavailable Joseph Frederick MD Unavailable Unavailable Joseph Frederick MD Unavailable Unavailable Joseph Frederick MD Unavailable Unavailable Joseph Frederick MD Unavailable Unavailable Joseph Frederick MD Unavailable Unavailable Joseph Frederick MD Unavailable Unavailable Joseph Frederick MD Unavailable Unavailable Joseph Frederick MD Unavailable Unavailable Joseph Frederick MD Unavailable Unavailable Joseph Frederick MD Unavailable Unavailable Joseph Frederick MD Unavailable Unavailable Joseph Frederick MD Unavailable Unavailable Joseph Frederick MD Unavailable Unavailable Joseph Frederick MD Unavailable Unavailable Joseph Frederick MD Unavailable Unavailable Joseph Frederick MD Unavailable Unavailable Joseph Frederick MD Unavailable Unavailable Joseph Frederick MD Unavailable Unavailable Joseph Frederick MD Unavailable Unavailable Joseph Frederick MD Unavailable Unavailable Joseph Frederick MD Unavailable Unavailable Joseph Frederick MD Unavailable Unavailable Joseph Frederick MD Unavailable Unavailable Joseph Frederick MD Unavailable Unavailable Joseph Frederick MD Unavailable Unavailable Joseph Frederick MD Unavailable Unavailable Joseph Frederick MD Unavailable Unavailable Joseph Frederick MD Unavailable Unavailable Joseph Frederick MD Unavailable Unavailable Joseph Frederick MD Unavailable Unavailable Joseph Frederick MD Unavailable Unavailable Joseph Frederick MD Unavailable Unavailable Joseph Frederick MD Unavailable Unavailable Joseph Frederick MD Unavailable Unavailable Joseph Frederick MD Unavailable Unavailable Joseph Frederick MD Unavailable Unavailable Joseph Frederick MD Unavailable Unavailable Joseph Frederick MD Unavailable Unavailable Joseph Frederick MD Unavailable Unavailable Joseph Frederick MD Unavailable Unavailable Joseph Frederick MD Unavailable Unavailable Joseph Frederick MD Unavailable Unavailable Joseph Frederick MD Unavailable Unavailable Joseph Frederick MD Unavailable Unavailable Joseph Frederick MD Unavailable Unavailable Joseph Frederick MD Unavailable Unavailable Joseph Frederick MD Unavailable Unavailable Joseph Frederick MD Unavailable Unavailable Joseph Frederick MD Unavailable Unavailable Joseph Frederick MD Unavailable Unavailable Joseph Frederick MD Unavailable Unavailable Joseph Frederick MD Unavailable Unavailable Joseph Frederick MD Unavailable Unavailable Joseph Frederick MD Unavailable Unavailable Joseph Frederick MD Unavailable Unavailable Joseph Frederick MD Unavailable Unavailable Joseph Frederick MD Unavailable Unavailable Joseph Frederick MD Unavailable Unavailable Joseph Frederick MD Unavailable Unavailable Joseph Frederick MD Unavailable Unavailable Joseph Frederick MD Unavailable Unavailable Joseph Frederick MD Unavailable Unavailable Joseph Frederick MD Unavailable Unavailable Joseph Frederick MD Unavailable Unavailable Joseph Frederick MD Unavailable Unavailable Joseph Frederick MD Unavailable Unavailable Joseph Frederick MD Unavailable Unavailable Joseph Frederick MD Unavailable Unavailable Joseph Frederick MD Unavailable Unavailable Joseph Frederick MD Unavailable Unavailable Joseph Frederick MD Unavailable Unavailable Joseph Frederick MD Unavailable Unavailable Joseph Frederick MD Unavailable Unavailable Joseph Frederick MD Unavailable Unavailable Joseph Frederick MD Unavailable Unavailable Joseph Frederick MD Unavailable Unavailable Joseph Frederick MD Unavailable Unavailable Joseph Frederick MD Unavailable Unavailable Joseph Frederick MD Unavailable Unavailable Joseph Frederick MD Unavailable Unavailable Joseph Frederick MD Unavailable Unavailable Joseph Frederick MD Unavailable Unavailable Joseph Frederick MD Unavailable [facility]available [facility] Unavailable Unavailable Rydberg, Margaret PA Unavailable Unavailable Rydberg, Margaret PA Unavailable Unavailable Rydberg, Margaret PA Unavailable Unavailable Rydberg, Margaret PA Unavailable Unavailable Rydberg, Margaret PA Unavailable Unavailable Rydberg, Margaret PA Unavailable Unavailable Rydberg, Margaret PA Unavailable Unavailable Rydberg, Margaret PA Unavailable Unavailable Rydberg, Margaret PA Unavailable Unavailable Rydberg, Margaret PA Unavailable Unavailable Rydberg, Margaret PA Unavailable Unavailable Rydberg, Margaret PA Unavailable Unavailable Rydberg, Margaret PA Unavailable Unavailable Rydberg, Margaret PA Unavailable Unavailable Rydberg, Margaret PA Unavailable Unavailable Rydberg, Margaret PA Unavailable Unavailable Rydberg, Margaret PA Unavailable Unavailable Rydberg, Margaret PA Unavailable Unavailable Rydberg, Margaret PA Unavailable Unavailable Rydberg, Margaret PA Unavailable Unavailable Rydberg, Margaret PA Unavailable Unavailable Rydberg, Margaret PA Unavailable Unavailable Re-disclosure Warning The records that you are about to access may contain information from federally-assisted alcohol or drug abuse programs. If such information is present, then the following federally mandated warning applies: This information has been disclosed to you from records protected by federal confidentiality rules (42 CFR part 2). The federal rules prohibit you from making any further disclosure of this information unless further disclosure is expressly permitted by the written consent of the person to whom it pertains or as otherwise permitted by 42 CFR part 2. A general authorization for the release of medical or other information is NOT sufficient for this purpose. The Federal rules restrict any use of the information to criminally investigate or prosecute any alcohol or drug abuse patient.The records that you are about to access may contain highly sensitive health information, the redisclosure of which is protected by Article 27-F of the [facility] Public Health law. If you continue you may have access to information: Regarding HIV / AIDS; Provided by facilities licensed or operated by the [facility] Office of Mental Health; or Provided by the [facility] Office for People With Developmental Disabilities. If such information is present, then the following [facility] mandated warning applies: This information has been disclosed to you from confidential records which are protected by state law. State law prohibits you from making any further disclosure of this information without the specific written consent of the person to whom it pertains, or as otherwise permitted by law. Any unauthorized further disclosure in violation of state law may result in a fine or shelter sentence or both. A general authorization for the release of medical or other information is NOT sufficient authorization for further disc losure. Allergies and Adverse Reactions Type Description Substance Reaction Status Data Source(s ) Drug allergy Drug allergy Quinolones [facility] Drug allergy Drug allergy Sulfa (Sulfonamide Antibiotics) Rash I [facility] Family History Family Member Name Family Member Gender Family Member Status Date o f Status Description Data Source(s) Unknown Unknown Problem [facility] ([facility]) Unknown Female Problem [facility] ([facility]) Unknown Female Problem [facility] ([facility]) Encounters Encounter Providers Location Date Indications Data Source(s ) Outpatient Attender: Micha Goss 08/31/2020 12:00:00 AM E [facility] Emergency Attender: MARBELLA BLOCK [facility] ED-ED 07/2019 08:23:00 PM EST - 06/21/2020 09:29:00 PM EST HARD TIME BREATHING [facility] HARD TIME BREATHING Patient discharged. Outpatient Attender: Phyllis WEBER-BC 04/22 01:04:00 PM EDT - 05/16/2020 01:04:00 PM EDT [facility] Outpatient Attender: Franco MOORE 04/05/2020 10:28:00 AM EDT [facility] Outpatient Attender: Franco Frederick MD FP 03/24/2020 12:02:07 AM EDT [facility] Outpatient Attender: Micha Goss 03/24/2020 12:00:00 AM [facility] Outpatient Attender: Franco Frederick MD FP 03/23/2020 09:32:01 AM EDT [facility] Outpatient Attender: Franco Frederick MD FP 03/23/2020 09:31:00 AM EDT [facility] Outpatient Attender: Franco Frederick MD FP 03/08/2020 03:31:00 PM EDT [facility] Outpatient Attender: Franco Frederick MD FP 03/02/2020 02:29:00 PM EDT [facility] Outpatient Attender: Franco Frederick MD FP 03/02/2020 02:26:01 PM EDT [facility] Emergency Attender: Braxton VALENTINOttender: Braxton FAROOQ ED-ED 02/19/2020 09:40:00 PM EDT - 02/20/2020 12:22:00 AM EDT GEN WEAKNESS [facility] GEN WEAKNESS Patient discharged. Outpatient Attender: Franco Frederick MD FP 02/19/2020 10:51:01 AM EDT [facility] Outpatient Attender: Franco Frederick MD FP 02/17/2020 08:52:00 AM EDT [facility] Outpatient Attender: Franco Frederick MD FP 02/02/2020 02:00:03 PM EDT [facility] Outpatient Attender: Franco Frederick MD FP 01/27/2020 06:00:04 PM EDT [facility] Outpatient Attender: Luz Marina David/Charlie/Antonio/Eugene nd 01/27/2020 02:30:00 PM [facility] Outpatient Attender: Franco Frederick MD FP 01/27/2020 01:55:00 PM EDT [facility] Outpatient Attender: Franco Frederick MD FP 01/27/2020 01:08:00 PM EDT [facility] Outpatient Attender: Franco Frederick MD FP 01/26/2020 11:45:00 AM EDT [facility] Outpatient Attender: Franco Frederick MD FP 01/26/2020 09:08:01 AM EDT [facility] Outpatient Attender: Franco Frederick MD FP 01/25/2020 10:05:00 AM EDT [facility] Outpatient Attender: Franco Frederick MD FP 01/14/2020 08:04:01 AM EDT [facility] Outpatient Attender: Franco Frederick MD FP 01/08/2020 10:00:00 AM EDT [facility] Outpatient Attender: Franco Frederick MD FP 01/01/2020 04:32:02 PM EDT [facility] Outpatient Attender: Franco Frederick MD FP 12/26/2019 12:02:03 AM EDT [facility] Outpatient Attender: Franco Frederick MD FP 12/25/2019 05:44:06 PM EDT [facility] Outpatient Attender: Franco Frederick MD FP 12/25/2019 05:44:02 PM EDT [facility] Outpatient Attender: Franco Frederick MD FP 12/25/2019 05:14:00 PM EDT [facility] Outpatient Attender: Franco Frederick MD FP 12/25/2019 05:13:00 PM EDT [facility] Outpatient Attender: Franco Frederick MD FP 12/23/2019 11:34:01 AM EDT [facility] Outpatient Attender: Franco Frederick MD FP 12/18/2019 03:06:00 PM EDT [facility] ENTER 12/08/2019 12:00:00 AM EDT eCW1 ([facility]) Outpatient Attender: Franco Frederick MD FP 12/07/2019 07:44:01 AM EDT [facility] Outpatient Attender: Franco Frederick MD FP 12/04/2019 08:31:01 AM EDT [facility] Outpatient Attender: Franco Frederick MD FP 12/04/2019 08:28:00 AM EDT [facility] Outpatient Attender: Franco Frederick MD FP 12/04/2019 08:27:01 AM EDT [facility] Outpatient Attender: Franco Frederick MD FP 12/03/2019 09:00:03 AM EDT [facility] Emergency Referrer: SUKUMAR FAROOQ 05:58:00 AM EDT - 12/02/2019 06:25:21 AM EDT hx esophageal cancer, [facility] hx esophageal cancer, dysphagia Outpatient Attender: SUKUMAR JEAN PAConsultant: [facility] [id number] 12/01/2019 02:55:00 AM EDT [facility] Emergency Attender: SUKUMAR Rivaserrer: Joseph [facility] EMERGENCY ROOM-ER 12/01/2019 02:36:00 AM EDT - 12/01/2019 06:50:00 AM EDT [facility] Patient discharged. Outpatient Attender: Franco Frederick MD FP 11/26/2019 09:01:03 PM EDT [facility] Outpatient Attender: Franco Frederick MD FP 11/26/2019 01:16:00 PM EDT [facility] Outpatient Attender: Franco Frederick MD FP 11/19/2019 09:01:02 PM EDT [facility] Outpatient Attender: Franco Frederick MD FP 11/19/2019 12:36:02 PM EDT [facility] Outpatient Attender: Franco Frederick MD FP 11/19/2019 12:35:05 PM EDT [facility] Outpatient Attender: Franco Frederick MD FP 11/19/2019 12:22:06 PM EDT [facility] Outpatient Attender: Franco Frederick MD FP 11/19/2019 11:21:01 AM EDT [facility] Outpatient Attender: Franco Frederick MD FP 11/19/2019 11:20:00 AM EDT [facility] Outpatient Attender: Franco Frederick MD FP 11/19/2019 10:41:00 AM EDT [facility] Outpatient Attender: Franco Frederick MD FP 11/13/2019 03:10:01 PM EDT [facility] Outpatient Attender: Franco Frederick MD FP 11/13/2019 12:08:01 PM EDT [facility] Outpatient Attender: Franco Frederick MD FP 11/13/2019 12:08:01 PM EDT [facility] Outpatient Attender: Chang David/Charlie/Antonio/Re indl 11/13/2019 11:00:00 AM EDT [facility] ([facility]) Outpatient Attender: Franco Frederick MD FP 11/13/2019 10:34:00 AM EDT [facility] Outpatient Attender: Franco Frederick MD FP 11/12/2019 09:01:03 PM EDT [facility] Outpatient Attender: Franco Frederick MD FP 11/12/2019 04:10:01 PM EDT [facility] Outpatient Attender: Franco Frederick MD FP 11/12/2019 04:10:00 PM EDT [facility] Outpatient Attender: Franco Frederick MD 11/12/2019 12:42:02 PM EDT [facility] Outpatient Attender: Franco Frederick MD 11/12/2019 12:42:01 PM EDT [facility] Outpatient Attender: Franco Frederick MD 11/12/2019 10:58:00 AM EDT [facility] Outpatient Attender: Franco Frederick MD FP 11/12/2019 10:51:00 AM EDT [facility] Outpatient Attender: Franco Frederick MD 11/12/2019 10:50:00 AM EDT [facility] Outpatient Attender: Franco Frederick MD 11/12/2019 09:06:01 AM EDT [facility] Outpatient Attender: Franco Frederick MD 11/12/2019 08:28:00 AM EDT [facility] Outpatient Attender: Franco Frederick MD 11/09/2019 03:14:00 PM EDT [facility] Outpatient Attender: Franco Frederick MD 11/09/2019 01:48:00 PM EDT [facility] Outpatient Attender: Franco Frederick MD 07/15/2019 09:01:05 PM [facility] Emergency Attender: LAURENCE Rodriguezer: EDU BACA SR 04/02/2018 12:14:00 AM EDT - 04/02/2018 01:35:00 AM [facility] Emergency Attender: MOSHE YOUSIF JRReferrer: Me ga De León [facility] EMERGENCY ROOM-ER 03/15/2018 11:49:00 AM EDT - 03/15/2018 01:00:00 PM [facility] Emergency Attender: TIGIST Rivaserrer: Jessy De León [facility] EMERGENCY [facility]-ER 11/08/2017 12:27:00 PM EDT - 11/08/2017 02:20:00 PM [facility] Outpatient Attender: Margaret Rodriguezer: Saba Denney [place] [facility] 07/30/2012 02:51:00 PM [facility] Emergency Attender: LAURENCE FAROOQ EMERGENCY ROOM- ER 03/13/2012 02:04:00 PM EDT - 03/13/2012 06:15:00 PM [facility] Immunizations Vaccine Date Status Description Data Source(s) New in 2011. IIV4 05/16/2020 01:38:00 PM EDT completed [facility] ([facility]) Medications Medication Brand Name Start Date Product Form Dose Route Admi nistrative Instructions Pharmacy Instructions Status Indications Reaction Description Data Source(s) 1 mg/2 mL 08/17/2020 12:00:00 AM EST suspension for nebuliza tion 120 INHALE ONE VIAL VIA NEBULIZER TWICE A DAY INHALE ONE VIAL VIA NEBULIZER TWICE A DAY SOLD: 08/18/2020 [facility] 60 mg 08/02/2020 12:00:00 AM EST capsule,delayed release (DR/EC) 90 TAKE ONE CAPSULE BY MOUTH EVERY DAY TAKE ONE CAPSULE BY MOUTH EVERY DAY SOLD: 08/02/2020 [facility] 200 mcg 08/02/2020 12:00:00 AM EST tablet 30 TAKE ONE TABLET BY MOUTH EVERY MORNING ON AN EMPTY STOMACH TAKE ONE TABLET BY MOUTH EVERY MORNING O N AN EMPTY STOMACH SOLD: 08/02/2020 [facility] 10 mg 08/02/2020 12:00:00 AM EST tablet 90 TAKE 1 TABLET BY MOUTH EVERY 8 HOURS NEEDED FOR ANXIETY TAKE 1 TABLET BY MOUTH EVERY 8 HOURS NEEDED FOR ANXIETY SOLD: 08/02/2020 [facility] 40 mg 08/02/2020 12:00:00 AM EST capsule,delayed release (DR/EC) 90 TAKE ONE CAPSULE BY MOUTH EVERY DAY TAKE ONE CAPSULE BY MOUTH EVERY DAY SOLD: 08/02/2020 [facility] Nystatin 100 UNT/MG Topical Powder 100,000 unit/gram [place]STATI N 07/07/2020 12:00:00 AM EST powder 15 APPLY TO RASH IN SKIN FOLDS ON ABDOMEN 2-3 TIMES DAILY NEEDED APPLY TO RASH IN SKIN FOLDS ON ABDOMEN 2 -3 TIMES DAILY NEEDED SOLD: 07/07/2020 [facility] Cyclobenzaprine hydrochloride 10 MG Oral Tablet CYCLOBENZAPR INE HCL 07/06/2020 12:00:00 AM EST tablet 90 TAKE ONE TABLET BY MOUTH THREE TIMES A DAY NEEDED FOR MUSCLE SPASMS TAKE ONE TABLET BY MOUTH THREE TIMES A D AY NEEDED FOR MUSCLE SPASMS SOLD: 07/07/2020 [facility] 90 mcg/actuation 07/06/2020 12:00:00 AM EST HFA aerosol inha ler 18 INHALE TWO PUFFS BY MOUTH EVERY 4 TO 6 HOURS NEEDED INHALE TWO PUFFS BY MOUTH EVERY 4 TO 6 HOURS NEEDED SOLD: 07/07/2020 [facility] Metformin hydrochloride 1000 MG Oral Tablet 1,000 mg METFORM IN HCL 07/06/2020 12:00:00 AM EST tablet 60 TAKE ONE TABLET BY MOUTH TWICE A DAY TAKE ONE TABLET BY MOUTH TWICE A DAY SOLD: 07/07/2020 [facility] 20 mg 06/26/2020 12:00:00 AM EST tablet 11 TAKE 2 TABLETS BY MOUTH ONCE DAILY FOR 4 DAYS, THEN 1 TABLET DAILY FOR 3 DAYS TAKE 2 TABLETS BY MOUTH ONCE DAILY FOR 4 DAYS, THEN 1 TABLET DAILY FOR 3 DAYS SOLD: 06/26/2020 [facility] 12 HR Guaifenesin 600 MG Extended Release Oral Tablet GUAIFE NESIN 06/25/2020 12:00:00 AM EST tablet extended release 12hr 20 TOREY E ONE TABLET BY MOUTH TWICE A DAY FOR 10 DAYS TAKE ONE TABLET BY MOUTH TWICE A DAY FOR 10 DAYS SOLD: 06/26/2020 [facility] 20 mg 06/22/2020 12:00:00 AM EST tablet 10 TAKE TWO TABLETS BY MOUTH EVERY DAY TAKE TWO TABLETS BY MOUTH EVERY DAY SOLD: 06/22/2020 [facility] 250 mg 06/22/2020 12:00:00 AM EST tablet 6 TAKE TWO TABLETS BY MOUTH AT ONCE ON THE FIRST DAY THEN TAKE ONE DAILY THEREAFTER TAKE TWO TABLETS BY MOUTH AT ONCE ON THE FIRST DAY THEN TAKE ONE DAILY THEREAFTER SOLD: 06/22/2020 [facility] montelukast 10 MG Oral Tablet MONTELUKAST SODIUM 06/20/2020 12:0 0:00 AM EST tablet 30 TAKE ONE TABLET BY MOUTH EVERY D AY TAKE ONE TABLET BY MOUTH EVERY DAY SOLD: 06/20/2020 [facility] 0.1 % 06/05/2020 12:00:00 AM EST cream 15 APPLY TO STOMA SKIN TWO TIMES A DAY APPLY TO STOMA SKIN TWO TIMES A DAY SOLD: 06/06/2020 [facility] 100 mg 02/09/2020 12:00:00 AM EDT capsule 20 TAKE ONE CAPSULE BY MOUTH EVERY 12 HOURS TAKE ONE CAPSULE BY MOUTH EVERY 12 HOURS SOLD: 02/10/2020 [facility] 33 gauge 01/30/2020 12:00:00 AM EDT misc 100 USE TO TEST FOUR TIMES A DAY USE TO TEST FOUR TIMES A DAY SOLD: 02/01/2020 [facility] montelukast 10 MG Oral Tablet MONTELUKAST SODIUM 01/28/2020 12:0 0:00 AM EDT tablet 30 TAKE ONE TABLET BY MOUTH EVERY D AY TAKE ONE TABLET BY MOUTH EVERY DAY SOLD: 04/11/2020 [facility] 1 mg/2 mL 01/28/2020 12:00:00 AM EDT suspension for nebuliza tion 180 INHALE 2 VIALS VIA NEBULIZER TWO TIMES A DAY INHALE 2 VIALS VIA NEBULIZER TWO TIMES A DAY SOLD: 01/28/2020 [facility] montelukast 10 MG Oral Tablet MONTELUKAST SODIUM 01/28/2020 12:0 0:00 AM EDT tablet 30 TAKE ONE TABLET BY MOUTH EVERY D AY TAKE ONE TABLET BY MOUTH EVERY DAY SOLD: 01/28/2020 [facility] 0.5 mg-3 mg(2.5 mg base)/3 mL 01/28/2020 12:00:0 0 AM EDT solution for nebulization 360 INHLAE 1 VIAL VIA NEBULIZER 4 TI MES A DAY NEEDED INHLAE 1 VIAL VIA NEBULIZER 4 TIMES A DAY NEEDED SOLD: 01/28/2020 [facility] montelukast 10 MG Oral Tablet MONTELUKAST SODIUM 01/28/2020 12:0 0:00 AM EDT tablet 30 TAKE ONE TABLET BY MOUTH EVERY D AY TAKE ONE TABLET BY MOUTH EVERY DAY SOLD: 03/07/2020 [facility] 0.9 % 01/28/2020 12:00:00 AM EDT solution for nebulizati on 300 INHALE 1 VIAL VIA NEBULIZER 2 TO 3 TIMES A DAY NEEDED WITH ALBUTEROL INHALE 1 VIAL VIA NEBULIZER 2 TO 3 TIMES A DAY NEEDED WITH ALBUTEROL SOLD: 01/28/2020 [facility] LANCETS 01/28/2020 12:00:00 AM EDT misc 100 USE T O TEST FOUR TIMES A DAY USE TO TEST FOUR TIMES A DAY SOLD: 01/28/2020 [facility] BLOOD SUGAR DIAGNOSTIC 01/28/2020 12:00:00 AM EDT strip 100 USE TO TEST FOUR TIMES A DAY USE TO TEST FOUR TIMES A DAY SOLD: 01/28/2020 [facility] montelukast 10 MG Oral Tablet MONTELUKAST SODIUM 01/28/2020 12:0 0:00 AM EDT tablet 30 TAKE ONE TABLET BY MOUTH EVERY D AY TAKE ONE TABLET BY MOUTH EVERY DAY SOLD: 05/14/2020 [facility] BLOOD-GLUCOSE METER 01/28/2020 12:00:00 AM EDT misc 1 USE TO TEST FOUR TIMES A DAY USE TO TEST FOUR TIMES A DAY SOLD: 01/28/2020 [facility] Sodium Chloride 0.154 MEQ/ML Inhalant Solution Sodium Chlori de 01/27/2020 12:00:00 AM EDT active M [facility] ([facility] ) montelukast 10 MG Oral Tablet [Singulair] Singulair 2019 12:00:00 AM EDT ORAL active MED[facility] ( [facility], ) 10 mg 01/21/2020 12:00:00 AM EDT tablet 90 TAKE ONE TABLET BY MOUTH EVERY 8 HOURS NEEDED FOR ANXIETY TAKE ONE TABLET BY MOUTH EVERY 8 HOURS A S NEEDED FOR ANXIETY SOLD: 01/25/2020 [facility] Cyclobenzaprine hydrochloride 10 MG Oral Tablet CYCLOBENZAPR INE HCL 01/14/2020 12:00:00 AM EDT tablet 30 TAKE ONE TABLET BY MOUTH THREE TIMES A DAY NEEDED FOR MUSCLE SPASMS TAKE ONE TABLET BY MOUTH THREE TIMES A D AY NEEDED FOR MUSCLE SPASMS SOLD: 01/17/2020 [facility] Cyclobenzaprine hydrochloride 10 MG Oral Tablet CYCLOBENZAPR INE HCL 01/14/2020 12:00:00 AM EDT tablet 30 TAKE ONE TABLET BY MOUTH THREE TIMES A DAY NEEDED FOR MUSCLE SPASMS TAKE ONE TABLET BY MOUTH THREE TIMES A D AY NEEDED FOR MUSCLE SPASMS SOLD: 02/21/2020 [facility] buspirone hydrochloride 10 MG Oral Tablet BUSPIRONE HCL 01/12/2020 12:00:00 AM EDT tablet 60 TAKE ONE TABLET BY MOUTH NELLY RY 12 HOURS NEEDED FOR ANXIETY TAKE ONE TABLET BY MOUTH EVERY 12 HOURS NEEDED FOR ANXIETY SOLD: 01/17/2020 [facility] 40 mg 01/05/2020 12:00:00 AM EDT capsule,delayed release (DR/EC) 30 TAKE ONE CAPSULE BY MOUTH EVERY DAY TAKE ONE CAPSULE BY MOUTH EVERY DAY SOLD: 01/17/2020 [facility] 40 mg 01/05/2020 12:00:00 AM EDT capsule,delayed release (DR/EC) 30 TAKE ONE CAPSULE BY MOUTH EVERY DAY TAKE ONE CAPSULE BY MOUTH EVERY DAY SOLD: 06/20/2020 [facility] 40 mg 01/05/2020 12:00:00 AM EDT capsule,delayed release (DR/EC) 30 TAKE ONE CAPSULE BY MOUTH EVERY DAY TAKE ONE CAPSULE BY MOUTH EVERY DAY SOLD: 03/17/2020 [facility] 40 mg 01/05/2020 12:00:00 AM EDT capsule,delayed release (DR/EC) 30 TAKE ONE CAPSULE BY MOUTH EVERY DAY TAKE ONE CAPSULE BY MOUTH EVERY DAY SOLD: 05/09/2020 [facility] 200 mcg 01/01/2020 12:00:00 AM EDT tablet 30 TAKE ONE TABLET BY MOUTH EVERY DAY ON AN EMPTY STOMACH TAKE ONE TABLET BY MOUTH EVERY DAY ON AN EMPTY STOMACH SOLD: 01/17/2020 [facility] 15 mg 01/01/2020 12:00:00 AM EDT tablet 30 TAKE ONE TABLET BY MOUTH EVERY DAY TAKE ONE TABLET BY MOUTH EVERY DAY SOLD: 01/17/2020 [facility] 15 mg 01/01/2020 12:00:00 AM EDT tablet 30 TAKE ONE TABLET BY MOUTH EVERY DAY TAKE ONE TABLET BY MOUTH EVERY DAY SOLD: 06/20/2020 [facility] 15 mg 01/01/2020 12:00:00 AM EDT tablet 30 TAKE ONE TABLET BY MOUTH EVERY DAY TAKE ONE TABLET BY MOUTH EVERY DAY SOLD: 03/17/2020 [facility] 15 mg 01/01/2020 12:00:00 AM EDT tablet 30 TAKE ONE TABLET BY MOUTH EVERY DAY TAKE ONE TABLET BY MOUTH EVERY DAY SOLD: 05/14/2020 [facility] 60 mg 12/31/2019 12:00:00 AM EDT capsule,delayed release (DR/EC) 30 TAKE ONE CAPSULE BY MOUTH EVERY DAY TAKE ONE CAPSULE BY MOUTH EVERY DAY SOLD: 02/22/2020 [facility] 60 mg 12/31/2019 12:00:00 AM EDT capsule,delayed release (DR/EC) 30 TAKE ONE CAPSULE BY MOUTH EVERY DAY TAKE ONE CAPSULE BY MOUTH EVERY DAY SOLD: 01/17/2020 [facility] 60 mg 12/31/2019 12:00:00 AM EDT capsule,delayed release (DR/EC) 30 TAKE ONE CAPSULE BY MOUTH EVERY DAY TAKE ONE CAPSULE BY MOUTH EVERY DAY SOLD: 05/14/2020 [facility] 60 mg 12/31/2019 12:00:00 AM EDT capsule,delayed release (DR/EC) 30 TAKE ONE CAPSULE BY MOUTH EVERY DAY TAKE ONE CAPSULE BY MOUTH EVERY DAY SOLD: 06/20/2020 [facility] 60 mg 12/31/2019 12:00:00 AM EDT capsule,delayed release (DR/EC) 30 TAKE ONE CAPSULE BY MOUTH EVERY DAY TAKE ONE CAPSULE BY MOUTH EVERY DAY SOLD: 04/11/2020 [facility] 5 mg 12/29/2019 12:00:00 AM EDT tablet 30 TAKE ONE TABLET BY MOUTH EVERY DAY WITH FOOD TAKE ONE TABLET BY MOUTH EVERY DAY WITH FOOD SOLD: 05/14/2020 [facility] 5 mg 12/29/2019 12:00:00 AM EDT tablet 30 TAKE ONE TABLET BY MOUTH EVERY DAY WITH FOOD TAKE ONE TABLET BY MOUTH EVERY DAY WITH FOOD SOLD: 06/20/2020 [facility] 5 mg 12/29/2019 12:00:00 AM EDT tablet 30 TAKE ONE TABLET BY MOUTH EVERY DAY WITH FOOD TAKE ONE TABLET BY MOUTH EVERY DAY WITH FOOD SOLD: 01/17/2020 [facility] 5 mg 12/29/2019 12:00:00 AM EDT tablet 30 TAKE ONE TABLET BY MOUTH EVERY DAY WITH FOOD TAKE ONE TABLET BY MOUTH EVERY DAY WITH FOOD SOLD: 03/17/2020 [facility] venlafaxine 75 MG Oral Tablet VENLAFAXINE HCL 12/26/2019 12:00:00 A M EDT tablet 60 TAKE ONE TABLET BY MOUTH TWICE A DAY TAKE ONE TA BLET BY MOUTH TWICE A DAY SOLD: 12/26/2019 [facility] 100 mg 12/26/2019 12:00:00 AM EDT tablet 60 TAKE ONE TABLET BY MOUTH TWICE A DAY TAKE ONE TABLET BY MOUTH TWICE A DAY SOLD: 12/26/2019 [facility] venlafaxine 75 MG Oral Tablet VENLAFAXINE HCL 12/26/2019 12:00:00 A M EDT tablet 60 TAKE ONE TABLET BY MOUTH TWICE A DAY TAKE ONE TA BLET BY MOUTH TWICE A DAY SOLD: 01/17/2020 [facility] 20 mg 12/26/2019 12:00:00 AM EDT tablet 30 TAKE ONE TABLET BY MOUTH EVERY DAY TAKE ONE TABLET BY MOUTH EVERY DAY SOLD: 01/25/2020 [facility] 20 mg 12/26/2019 12:00:00 AM EDT tablet 30 TAKE ONE TABLET BY MOUTH EVERY DAY TAKE ONE TABLET BY MOUTH EVERY DAY SOLD: 12/26/2019 [facility] 600 mg 12/25/2019 12:00:00 AM EDT tablet 120 TAKE TWO TABLETS BY MOUTH THREE TIMES A DAY TAKE TWO TABLETS BY MOUTH THREE TIMES A DAY SOLD: 04/11/2020 [facility] 10 mg 12/25/2019 12:00:00 AM EDT tablet 90 TAKE ONE TABLET BY MOUTH EVERY 8 HOURS NEEDED FOR ANXEITY TAKE ONE TABLET BY MOUTH EVERY 8 HOURS A S NEEDED FOR ANXEITY SOLD: 12/26/2019 [facility] 600 mg 12/25/2019 12:00:00 AM EDT tablet 120 TAKE TWO TABLETS BY MOUTH THREE TIMES A DAY TAKE TWO TABLETS BY MOUTH THREE TIMES A DAY SOLD: 06/20/2020 [facility] 600 mg 12/25/2019 12:00:00 AM EDT tablet 120 TAKE TWO TABLETS BY MOUTH THREE TIMES A DAY TAKE TWO TABLETS BY MOUTH THREE TIMES A DAY SOLD: 12/26/2019 [facility] 600 mg 12/25/2019 12:00:00 AM EDT tablet 120 TAKE TWO TABLETS BY MOUTH THREE TIMES A DAY TAKE TWO TABLETS BY MOUTH THREE TIMES A DAY SOLD: 03/07/2020 [facility] 600 mg 12/25/2019 12:00:00 AM EDT tablet 120 TAKE TWO TABLETS BY MOUTH THREE TIMES A DAY TAKE TWO TABLETS BY MOUTH THREE TIMES A DAY SOLD: 02/08/2020 [facility] 600 mg 12/25/2019 12:00:00 AM EDT tablet 120 TAKE TWO TABLETS BY MOUTH THREE TIMES A DAY TAKE TWO TABLETS BY MOUTH THREE TIMES A DAY SOLD: 05/14/2020 [facility] 10 mg 12/03/2019 12:00:00 AM EDT tablet 90 TAKE ONE TABLET BY MOUTH EVERY 8 HOURS NEEDED FOR ANXIETY TAKE ONE TABLET BY MOUTH EVERY 8 HOURS A S NEEDED FOR ANXIETY SOLD: 12/06/2019 [facility] venlafaxine 75 MG Oral Tablet VENLAFAXINE HCL 11/20/2019 12:00:00 A M EDT tablet 60 TAKE ONE TABLET BY MOUTH TWICE A DAY TAKE ONE TA BLET BY MOUTH TWICE A DAY SOLD: 11/20/2019 [facility] 10 mg 11/19/2019 12:00:00 AM EDT tablet 30 TAKE ONE TABLET BY MOUTH THREE TIMES A DAY NEEDED FOR MUSCLE SPASMS TAKE ONE TABLET BY MOUTH THREE TIMES A DAY NEEDED FOR MUSCLE SPASMS SOLD: 11/19/2019 [facility] 10 mg 11/19/2019 12:00:00 AM EDT tablet 30 TAKE ONE TABLET BY MOUTH THREE TIMES A DAY NEEDED FOR MUSCLE SPASMS TAKE ONE TABLET BY MOUTH THREE TIMES A DAY NEEDED FOR MUSCLE SPASMS SOLD: 12/06/2019 [facility] 0.1 % 11/13/2019 12:00:00 AM EDT cream 30 APPLY TO STOMA SKIN TWO TIMES A DAY APPLY TO STOMA SKIN TWO TIMES A DAY SOLD: 11/13/2019 [facility] Triamcinolone Acetonide 1 MG/ML Topical Cream Triamcinolone Acetonide 11/13/2019 12:00:00 AM EDT active [facility] ([facility] ) . UNIT 11/12/2019 12:00:00 AM EDT Aerosol 1 USE A S DIRECTED USE DIRECTED SOLD: 11/12/2019 [facility] 200 mcg 11/12/2019 12:00:00 AM EDT tablet 30 TAKE ONE TABLET BY MOUTH EVERY DAY ON AN EMPTY STOMACH TAKE ONE TABLET BY MOUTH EVERY DAY ON AN EMPTY STOMACH SOLD: 12/06/2019 [facility] 50 mcg/actuation 11/12/2019 12:00:00 AM EDT spray,suspension 16 SPRAY 1 SPRAY IN EACH NOSTRIL ONCE DAILY SPRAY 1 SPRAY IN EACH NOSTRIL ONCE DAILY SOLD: 11/12/2019 [facility] 600 mg 11/12/2019 12:00:00 AM EDT tablet 120 TAKE TWO TABLETS BY MOUTH THREE TIMES A DAY TAKE TWO TABLETS BY MOUTH THREE TIMES A DAY SOLD: 11/12/2019 [facility] 40 mg 11/12/2019 12:00:00 AM EDT capsule,delayed release (DR/EC) 30 TAKE ONE CAPSULE BY MOUTH EVERY DAY TAKE ONE CAPSULE BY MOUTH EVERY DAY SOLD: 12/06/2019 [facility] buspirone hydrochloride 10 MG Oral Tablet BUSPIRONE HCL 11/12/2019 12:00:00 AM EDT tablet 60 TAKE ONE TABLET BY MOUTH NELLY RY 12 HOURS NEEDED FOR ANXIETY TAKE ONE TABLET BY MOUTH EVERY 12 HOURS NEEDED FOR ANXIETY SOLD: 11/12/2019 [facility] 40 mg 11/12/2019 12:00:00 AM EDT capsule,delayed release (DR/EC) 30 TAKE ONE CAPSULE BY MOUTH EVERY DAY TAKE ONE CAPSULE BY MOUTH EVERY DAY SOLD: 11/12/2019 [facility] 10 mg 11/12/2019 12:00:00 AM EDT tablet 30 TAKE ONE TABLET BY MOUTH EVERY 8 HOURS NEEDED FOR ANXIETY TAKE ONE TABLET BY MOUTH EVERY 8 HOURS A S NEEDED FOR ANXIETY SOLD: 11/12/2019 [facility] 15 mg 11/12/2019 12:00:00 AM EDT tablet 30 TAKE ONE TABLET BY MOUTH EVERY DAY TAKE ONE TABLET BY MOUTH EVERY DAY SOLD: 11/12/2019 [facility] 200 mcg 11/12/2019 12:00:00 AM EDT tablet 30 TAKE ONE TABLET BY MOUTH EVERY DAY ON AN EMPTY STOMACH TAKE ONE TABLET BY MOUTH EVERY DAY ON AN EMPTY STOMACH SOLD: 11/12/2019 [facility] 600 mg 11/12/2019 12:00:00 AM EDT tablet 120 TAKE TWO TABLETS BY MOUTH THREE TIMES A DAY TAKE TWO TABLETS BY MOUTH THREE TIMES A DAY SOLD: 12/06/2019 [facility] 15 mg 11/12/2019 12:00:00 AM EDT tablet 30 TAKE ONE TABLET BY MOUTH EVERY DAY TAKE ONE TABLET BY MOUTH EVERY DAY SOLD: 12/06/2019 [facility] 20 mg 11/10/2019 12:00:00 AM EDT tablet 30 TAKE ONE TABLET BY MOUTH EVERY DAY TAKE ONE TABLET BY MOUTH EVERY DAY SOLD: 11/12/2019 [facility] 0.5 mg/2 mL 10/30/2019 12:00:00 AM EDT suspension for nebuli zation 120 INHALE ONE VIAL VIA NEBULIZER TWICE A DAY INHALE ONE VIAL VIA NEBULIZER TWICE A DAY SOLD: 11/02/2019 [facility] 875-125 mg 10/30/2019 12:00:00 AM EDT tablet 20 TAKE ONE TABLET BY MOUTH TWICE A DAY TAKE ONE TABLET BY MOUTH TWICE A DAY SOLD: 11/02/2019 [facility] 20 mg 10/30/2019 12:00:00 AM EDT tablet 15 TAKE THREE TABLETS BY MOUTH EVERY DAY TAKE THREE TABLETS BY MOUTH EVERY DAY SOLD: 11/02/2019 [facility] 0.5 mg-3 mg(2.5 mg base)/3 mL 10/30/2019 12:00:0 0 AM EDT solution for nebulization 180 INHALE 1 VIAL IN NEBULIZER FOUR TIMES A DAY INHALE 1 VIAL IN NEBULIZER FOUR TIMES A DAY SOLD: 11/02/2019 [facility] Insurance Providers Payer name Policy type / Coverage type Policy ID Covered alliance party ID Covered alliance party's relationship to mayers Policy Mayers Plan Information [facility] COMMUNITY PLAN [facility] [id number] SP [id number] [facility] I [id number] Self [id number] EMEDNY [id number] SP [id number] MVP MCDHMO [id number] SP [id number] [facility] COMMUNITY [id number] S [id number] MVP [facility] CARE [id number] S [id number] Managed Care - [facility] Community Plan P [id number] S [id number] Medicaid S [id number] S [id number] Medicaid P [id number] S [id number] MEDICAID [id number] S [id number] MEDICAID [id number] SP [id number] MEDICAID [id number] S [id number] [facility] MEDICAID [id number] S [id number] MEDICAID [id number] S [id number] [facility] MEDICAID [id number] S [id number] [facility] [id number] S [id number] Managed Care - [facility] Community Plan P [id number] S [id number] Medicaid S [id number] S [id number] SELF PAY ONLY [id number] SP [id number] UN COMMUNITY PLAN MCDHMO [id number] SP [id number] [facility] Health Maintenance Organization (HMO) [id number] Self [id number] Managed Care - Community Plan [facility] P [id number] S [id number] [facility] Health Maintenance Organization (HMO) [id number] Self [id number] Self Pay P UNAVAILABLE S UNAVAILA BLE Managed Care - Community Plan [facility] S [id number] S [id number] [facility](MCAID) O [id number] S [id number] Medicaid S [id number] S [id number] Managed Care - Community Plan [facility] P [id number] S [id number] ANSI-Medicaid [id number] ANSI-Medicaid [id number] [place] 4 [place] [id number] S [id number] UN[facility] FBH [id number] S [id number] [facility] [place]/MCR Medigap Part B [id number] Self [id number] [facility] [place]/MCR Health Maintenance Organization (HMO) [id number] Self [id number] [facility] [place]/MCR Medigap Part B [id number] Self [id number] UNHC COMMUNITY PLAN MCDHMO [id number] SP [id number] [facility] MEDICAID [id number] S [id number] [facility] [place] [id number] S [id number] [facility] EP[facility] [id number] SP [id number] MEDICAID [place] [id number] SP [id number] MEDICAID [id number] SP [id number] A [facility] Plan-[place] Commercial [id number] Self [id number] UNHC COMMUNITY PLAN MCDHMO [id number] SP [id number] UNHC COMMUNITY PLAN MCDHMO [id number] SP [id number] [facility](MCAID) O [id number] S [id number] [facility] [place]/MCR Medigap Part B Self [facility] [place]/MCR Health Maintenance Organization (HMO) Self [facility] COMMUNITY PLAN MCDHMO [id number] SP [id number] [facility] Community Plan Commercial Self [facility](MCAID) O [id number] S [id number] MEDICAID [id number] SP [id number] [facility] [id number] SP [id number] Medicaid S [id number] S [id number] Managed Care - Community Plan [facility] P [id number] S [id number] Medicaid S [id number] S [id number] UNHC COMMUNITY PLAN MCDHMO [id number] SP [id number] MEDICAID [id number] SP [id number] MEDICAID [id number] SP [id number] [facility] [id number] HU [id number] [facility] [place] [id number] HU [id number] [facility] [id number] SP [id number] [facility] [place] [id number] SP [id number] ACTIVE DUTY [id number] HU [id number] [facility] [place] [id number] HU [id number] [facility] [id number] [id number] [facility] [place] SP MEDICAID -O/P [id number] Problems, Conditions, and Diagnoses Code Display Name Description Problem Type Effective Dates Data Source(s) 463031894 Family history of malignant neoplasm of thoracic cavity structure Family history of malignant neoplasm of thoracic cavity structure Problem 05/25/2020 12:00:00 AM EST [facility] ([facility]) [id number] Family history of endocrine disorders Fa kenneth history of endocrine disorders Problem 05/25/2020 12:00:00 AM EST [facility] ([facility]) 591482683 Family history of familial hypercholeste rolemia Family history of familial hypercholesterolemia Problem 05/25/2020 12:00:00 AM EST [facility] ([facility]) Family history of ischemic h eart disease and other diseases of the circulatory system Family history of ischemic heart disease and other diseases of the circulatory system Problem 05/25/2020 12:00:00 AM EST [facility] ([facility]) 120478705 Family history of diabetes mellitus Fami ly history of diabetes mellitus Problem 05/25/2020 12:00:00 AM EST [facility] ([facility]) 81541769 Mental disorder Mental disorder Problem 05/25/2020 12:0 0:00 AM EST [facility] ([facility]) 220300632 Family history of asthma Family history of asthma Prob andrew 05/25/2020 12:00:00 AM EST [facility] ([facility]) 472961531 FH: Arthritis FH: Arthritis Problem 05/25/2020 12:00:00 AM EST [facility] ([facility]) 341302591 Hemorrhage of rectum and anus Hemorrhage of rectum and anus Problem 05/25/2020 12:00:00 AM EST [facility] ([facility]) 96628798 Cerebral artery occlusion Cerebral artery occlusion Pr oblem 05/25/2020 12:00:00 AM EST [facility] ([facility]) 221022953 Pure hypercholesterolemia Pure hypercholesterolemia Pr oblem 05/25/2020 12:00:00 AM EST [facility] ([facility]) 363425708 Type II diabetes mellitus uncontrolled T ype II diabetes mellitus uncontrolled Problem 05/25/2020 12:00:00 AM EST [facility] ([facility]) 19932515 Moderate recurrent major depression Mode rate recurrent major depression Problem 05/25/2020 12:00:00 AM EST [facility] ([facility]) 627.2 Menopausal flushing Menopausal flushing 020 05:43:25 PM EDT [facility] G54.0 Brachial plexus disorders Right thoracic outlet syndro me 11/19/2019 12:34:19 PM EDT [facility] 339.12 Chronic tension-type headache, intractab le Chronic tension-type headache, intractable 11/12/2019 12:41:20 PM EDT [facility] K12.1 Other forms of stomatitis Stomatitis 11/12/2019 12:41:20 PM EDT [facility] 786.50 Chest pain Chest pain 11/12/2019 12:41:20 PM ED T [facility] L40.0 Psoriasis vulgaris Actively extending plaque psoriasis 11/12/2019 12:41:20 PM EDT [facility] Z93.0 Tracheostomy status TRACHEOSTOMY STATUS Diagnosis 0 02/19/2020 09:40:00 PM [facility] 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 PERSONAL HISTORY OF MALIGNANT NEOPLASM OF LARYNX Diagnosis 02/19/2020 09:40:00 PM [facility] R53.1 Weakness WEAKNESS Diagnosis 02/19/2020 09:40:00 PM ED [facility] R10.84 Generalized abdominal pain GENERALIZED ABDOMINAL PAIN Diagnosis 02/19/2020 09:40:00 PM [facility] hx esophageal cancer, dysphagia hx esophageal cancer, dysphagia Diagnosis 12/02/2019 06:25:26 AM [facility] Y92.[address] specified [address] as the place of o ccurrence of the external cause OTH PLACES THE PLACE OF OCCURRENCE OF THE EXTER Diagnosis 06/2020 02:36:00 AM [facility] X58.XXXA Exposure to other specified factors, ini tial encounter EXPOSURE TO OTHER SPECIFIED FACTORS, INITIAL ENCOU Diagnosis 12/01/2019 02:36:00 A M [facility] Y93.89 Activity, other specified ACTIVITY, OTHER SPECIFIED Di agnosis 12/01/2019 02:36:00 AM [facility] Z93.3 Colostomy status COLOSTOMY STATUS Diagnosis 12/01/2019 02 :36:00 AM [facility] Z79.899 Other assisted (current) drug therapy O THER HALF-WAY (CURRENT) DRUG THERAPY Diagnosis 12/01/2019 02:36:00 AM [facility] Z79.84 SUPERVISOR METALIZING (CURRENT) USE OF ORAL HYPOGLYC EMIC DRUGS SUPERVISOR METALIZING (CURRENT) USE OF ORAL HYPOGLYCEMIC DRUGS Diagnosis 12/01/2019 02:36:00 AM [facility] Z79.51 emt intermediate (current) use of inhaled stero ids HALF-WAY (CURRENT) USE OF INHALED STEROIDS Diagnosis 12/01/2019 02:36:00 AM [facility] 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 PERSONAL HISTORY OF MALIGNANT NEOPLASM OF LARYNX Diagnosis 12/01/2019 02:36:00 AM [facility] L90.5 Scar conditions and fibrosis of skin SCAR CONDIT IONS AND FIBROSIS OF SKIN Diagnosis 12/01/2019 02:36:00 AM [facility] F17.210 Nicotine dependence, cigarettes, uncompl icated NICOTINE DEPENDENCE, CIGARETTES, UNCOMPLICATED Diagnosis 12/01/2019 02:36:00 AM [facility] E78.00 PURE HYPERCHOLESTEROLEMIA, UNSPECIFIED P URE HYPERCHOLESTEROLEMIA, UNSPECIFIED Diagnosis 12/01/2019 02:36:00 AM [facility] l E11.9 Type 2 diabetes mellitus without complic ations TYPE 2 DIABETES MELLITUS WITHOUT COMPLICATIONS Diagnosis 12/01/2019 02:36:00 AM [facility] reinier J44.9 Chronic obstructive pulmonary disease, u nspecified CHRONIC OBSTRUCTIVE PULMONARY DISEASE, UNSPECIFIED Diagnosis 12/01/2019 02:36:00 AM [facility] I10 Essential (primary) hypertension ESSENTIAL (PRIMARY) H YPERTENSION Diagnosis 12/01/2019 02:36:00 AM [facility] T18.128A Food in esophagus causing other injury, initial encounter FOOD IN ESOPHAGUS CAUSING OTHER INJURY, INITIAL EN Diagnosis 12/01/2019 02:36: 00 AM [facility] R47.02 Dysphasia DYSPHASIA Diagnosis 12/01/2019 02:36:00 AM [facility] Surgeries/Procedures Procedure Description Date Indications Data Source(s) Brief Emotional/Behav Assessment W/ Scoring Doc Per Standard Inst 05/16/2020 12:00:00 AM [facility]) Admin Patient Focused Health Risk Assessment Instrument 05/16/2020 12:00:00 AM [facility] ([facility]) Non-covered item or service NON-COVERED ITEM OR SERVICE 07/2019 12:00:00 AM [facility] CT ABDOMEN & PELVIS W/O CONTRAST MATERIAL 02/19/2020 1 2:00:00 AM EDT [facility] ([facility]) CT ABDOMEN & PELVIS W/O CONTRAST MATERIAL CT ABD & PELVIS W/ O CONTRAST 02/19/2020 12:00:00 AM [facility] [address] X-RAY EXAM CHEST 1 VIEW 02/19/2020 12:00:00 AM [facility] URINALYSIS MICROSCOPIC ONLY MICROSCOPIC EXAM OF URINE 2019 12:00:00 AM [facility] BLOOD COUNT COMPLETE AUTO&AUTO DIFRNTL WBC COUNT COMPLETE CB C W/AUTO DIFF WBC 02/19/2020 12:00:00 AM [facility] AMYLASE ASSAY OF AMYLASE 02/19/2020 12:00:00 AM [facility] URINE TEST VISUAL COLOR CMPRSN METHS URINE PREGNAN CY TEST 02/19/2020 12:00:00 AM [facility] NATRIURETIC PEPTIDE ASSAY OF NATRIURETIC PEPTIDE 02/19/2020 12:00:0 0 AM [facility] TROPONIN QUANTITATIVE ASSAY OF TROPONIN QUANT 02/19/2020 12:00:00 A M [facility] LIPASE ASSAY OF LIPASE 02/19/2020 12:00:00 AM [facility] COMPREHENSIVE METABOLIC PANEL COMPREHEN METABOLIC PANEL 01/21 12:00:00 AM [facility] Infusion, normal saline solution , 1000 cc 02/19/2020 12:00:00 AM [facility] EMERGENCY DEPARTMENT VISIT HIGH/URGENT SEVERITY EMERGENCY DE PT VISIT 02/19/2020 12:00:00 AM [facility] Results ID Date Data Source [id number] 06/23/2020 05:54:00 PM EST [facility] Name Value Range Interpretation Code Description Data Elizabeth rce(s) Supporting Document(s) SARS-CoV-2 (COVID 19) [facility] This lab was ordered by [facility] a nd reported by [facility]. ID Date Data Source [id number] 06/23/2020 05:54:00 PM EST [facility] ([facility]) Name Value Range Interpretation Code Description Data Elizabeth rce(s) Supporting Document(s) Respiratory Panel Laboratory test result [facility]) This respiratory PCR panel detects Influ mattie A H1, H3 and 2009 H1 viruses, [...] be reliably differentiated. ORGANISM 1: HUMAN RHINOVIRUS/ENTEROVIRUS ID Date Data Source [id number] 06/23/2020 05:54:00 PM EST [facility] ([facility]) Name Value Range Interpretation Code Description Data Elizabeth rce(s) Supporting Document(s) Lactate [Mass/volume] in Serum or Plasma 1.4 mmol/L 0.4-2.0 Normal (applies to non-numeric results) [facility]) Y/N query for Sepsis Lactate Rule: Y ID Date Data Source [id number] 06/23/2020 05:54:00 PM EST [facility] ([facility]) Name Value Range Interpretation Code Description Data Elizabeth rce(s) Supporting Document(s) Blood Urea Nitrogen 6 mg/dL 7-18 Below low normal [facility] ([facility]) Glucose, Fasting 206 mg/dL 70-100 Above high normal [facility] ([facility]) Glomerular Filtration Rate Laboratory test result Normal (applies to non- numeric results) [facility] ([facility]) <content>Units are mL/min/1.73 m2</content>
<content></content>
<content>Chronic Kidney Disease Staging per NKF:</content>
<content></content>
<content>Stage I & II GFR >=60 Normal to Mildly Decreased</content>
<content>Stage III GFR 30- 59 Moderately Decreased</content>
<content>Stage IV GFR 15-29 Severely Decreased</content>
<content>Stage V GFR <15 Very Little GFR Left</content>
<content>ESRD GFR <15 on MARINE GEAR KEEPER</content>
<content></content> Sodium Level 128 meq/L 136-145 Below low normal [facility] ([facility]) Creatinine For GFR 0.68 mg/dL 0.55-1.30 Normal (applies to non -numeric results) [facility] ([facility]) Carbon Dioxide Level 31 meq/L 21-32 Normal (applies to non-num sukumar results) [facility] ([facility]) Chloride Level 92 meq/L 98-107 Below low normal [facility] ([facility]) Potassium Serum 4.1 meq/L 3.5-5.1 Normal (applies to non-numeric results) [facility] ([facility]) Calcium Level 9.4 mg/dL 8.5-10.1 Normal (applies to non-numeric re sults) [facility] ([facility]) Anion Gap 5 meq/L 8-16 Below low normal [facility] ( [facility]) ID Date Data Source [id number] 06/23/2020 05:54:00 PM EST [facility] ([facility]) Name Value Range Interpretation Code Description Data Elizabeth rce(s) Supporting Document(s) White Blood Count 17.6 10 4.0-10.0 Above high normal [facility] ([facility]) Hemoglobin 14.4 g/dL 12.0-15.5 Normal (applies to non-numeric resul ts) [facility] ([facility]) Red Blood Count 5.33 10 4.00-5.40 Normal (applies to non-numeric results) [facility] ([facility]) Hematocrit 45.8 % 36.0-47.0 Normal (applies to non-numeric resul ts) [facility] ([facility]) Mean Corpuscular Volume 85.9 fl 80.0-96.0 Normal ( applies to non-numeric results) [facility]) Mean Corpuscular HGB Conc 31.4 g/dL 32.0-36.5 Below low normal [facility] ([facility]) Mean Corpuscular Hemoglobin 27.0 pg 27.0-33.0 Norm al (applies to non-numeric results) [facility] ([facility]) Platelet Count, Automated 338 10 150-450 Normal (applies to non-numeric results) [facility]) Red Cell Distribution Width 14.8 % 11.5-14.5 Above high normal [facility] ([facility]) Neutrophils % 79.1 % 36.0-66.0 Above high normal [facility] ([facility]) Lymph % 10.8 % 24.0-44.0 Below low normal [facility] ( [facility]) Miller % 9.0 % 0.0-5.0 Above high normal [facility] ([facility]) Eos % 0.2 % 0.0-3.0 Normal (applies to non-numeric resul ts) [facility] ([facility]) Immature Granulocyte % 0.7 % 0-3.0 Normal (applies to non-n umeric results) [facility] ([facility]) Baso % 0.2 % 0.0-1.0 Normal (applies to non-numeric resul ts) [facility] ([facility]) Nucleated Red Blood Cell % 0.0 % 0-0 Normal (applies to n on-numeric results) [facility] ([facility]) Miller # 1.6 10 0.0-0.8 Above high normal [facility] ([facility]) Neutrophils # 13.9 10 1.5-8.5 Above high normal [facility] ([facility]) Lymph # 1.9 10 1.5-5.0 Normal (applies to non-numeric resul ts) [facility] ([facility]) Eos # 0.0 10 0.0-0.5 Normal (applies to non-numeric resul ts) [facility] ([facility]) Baso # 0.0 10 0.0-0.2 Normal (applies to non-numeric resul ts) [facility] ([facility]) ID Date Data Source [id number] 06/23/2020 05:08:00 PM EST [facility] ([facility]) Name Value Range Interpretation Code Description Data Elizabeth rce(s) Supporting Document(s) ABG Partial Pressure O2 50.8 mmHg 75.0-100.0 Below low normal [facility] ([facility]) ABG Partial Pressure Co2 49.9 mmHg 35.0-45.0 Above high normal [facility] ([facility]) ABG pH (Arterial) 7.399 units 7.350-7.450 Normal (applie s to non-numeric results) [facility] ([facility]) ABG Total Co2 31.7 meq/L 22.0-29.0 Above high normal [facility] ([facility]) ABG Hco3 30.1 meq/L 22.0-26.0 Above high normal [facility] ([facility]) ABG Base Excess 4.2 Above high normal [facility] ([facility]) ABG O2 Saturation 88.7 % 95.0-99.0 Below low normal [facility] ([facility]) ABG Standard Hco3 27.9 meq/L 22.0-26.0 Above high normal [facility] ([facility]) ID Date Data Source [id number] 06/29/2020 08:28:00 AM [facility] Imaging Services Department Imaging Report [address], [place] [address] %(RAD)RES..mtdd.print.filter("line") Name: KATHY BRADSHAW : 1980 Age/Sex: 39F Ordering Provider: VANESSA Haywood Med Rec #: [id number] Reg Status: [facility] ER Room #: Date of Service: 06/21/20 Report Number: [id number] cc:KIKO Gorman Send Report To: [id number] XRP/XR Chest 2 View [Pa & Lat] Reason for exam: cough Comparison is made to 05/17/09. A preliminary report was provided but the dictation did not go through and the study was resubmitted for dictation on 06/28/20. FINDINGS: The cardiac and mediastinal silhouettes appear normal and the lungs are clear. The bones and soft tissues are normal. The upper abdomen is unremarkable. IMPRESSION: No acute disease identifiable. Time portable performed: Fluoroscopy time in seconds: Number of Exposures: Contrast Agent in ml: Method of Administration: REPORT S IGNATURE ON FILE Reported By: Henrique Ballesteros MD <Electronically signed by Henrique Ballesteros MD> 06/29/20 1023 Dictation Date/Time: 06/28/20 1355 Transcribed Date/Time: 06/29/20 0828 Pipe Wrapping Machine Operator: [email or web address] Name Value Range Interpretation Code Description Data Elizabeth rce(s) Supporting Document(s) ID Date Data Source [id number] 05/16/2020 02:20:00 PM EDT [facility] ([facility]) Name Value Range Interpretation Code Description Data Elizabeth rce(s) Supporting Document(s) Appearance of Urine Laboratory test result [facility] ([facility]) Color of Urine Laboratory test result [facility] ([facility]) Spec [place] 1.000 [facility] ([facility]) Leukocytes Laboratory test result [facility] ([facility]) pH of Urine by Test strip 8 [facility] ([facility]) Protein [Presence] in Urine by Test strip Laboratory test result [facility] ([facility]) Nitrate [Presence] in Urine Laboratory test result [facility] ([facility]) Inhouse Glucose Laboratory test result [facility] ([facility]) Ketones [Presence] in Urine by Test strip Laboratory test result [facility] ([facility]) Urobilinogen Laboratory test result [facility] ([facility]) Blood type and Indirect antibody screen panel - Blood Laboratory test result [facility] ([facility]) ID Date Data Source [id number] 02/20/2020 09:20:00 AM EDT [facility] Imaging Services Department Imaging Report [address], [place] [address] %(RAD)RES..mtdd.print.filter("line") Name: KATHY BRDASHAW : 1980 Age/Sex: 39F Ordering Provider: CAPRI Lawrence Med Rec #: [id number] Reg Status: [facility] ER Room #: Date of Service: 02/19/20 Report Number: [id number] cc:PCP None Send Report To: [id number] XRP/XR Chest Xray Portable Reason for exam: chest pain FINDINGS: The cardiac and mediastinal silhouettes appear normal and the lungs are clear. The bones and soft tissues are normal. The upper abdomen is unremarkable. IMPRESSION: No acute disease identifiable. Time portable performed: 2245 Fluoroscopy time in seconds: Number of Exposures: Contrast Agent in ml: Method of Administration: REPORT SIGNATURE ON FILE Reported By: Caleb Jose MD <Electronically signed by Caleb Jose MD> 02/22/20 1144 Dictation Date/Time: 02/19/20 6741 Transcribed Date/Time: 02/20/20 0920 Pipe Wrapping Machine Operator: [email or web address] Name Value Range Interpretation Code Description Data Elizabeth rce(s) Supporting Document(s) ID Date Data Source [id number] [facility] Name Value Range Interpretation Code Description Data Elizabeth rce(s) Supporting Document(s) B-Type Natriuretic Peptide BNP <125 Normal (applies to non-numeric results) [facility] Results of this test should always be us ed in conjunction with the patients medical history, clinical presentation, and other findings. ID Date Data Source [id number] 02/19/2020 10:10:00 PM EDT [facility] ([facility]) Name Value Range Interpretation Code Description Data Elizabeth rce(s) Supporting Document(s) Laboratory test finding (navigational concept) 79.0 [facility] ([facility]) Results of this test should always be us ed in conjunction with the patients medical history, clinical presentation, and other findings. ID Date Data Source [id number] 02/19/2020 11:43:00 PM EDT [facility] Imaging Services Department Imaging Report [address], [place] [address] %(RAD)RES..mtdd.print.filter("line") Name: KATHY BRADSHAW : 1980 Age/Sex: 39F Ordering Provider: CAPRI Lawrence Med Rec #: [id number] Reg Status: REG ER Room #: Date of Service: 02/19/20 Report Number: [id number] cc:CAPRI Lawrence; PCP None Send Report To: EXAM: CT Abdomen and Pelvis Without IV contrast CLINICAL HISTORY:abd pain generalized TECHNIQUE: Axial computed tomography images of the abdomen and pelvis without intravenous contrast. CONTRAST: No IV contrast. COMPARISON:None prov ided. FINDINGS: LUNG BASES: The lung bases appear clear. No pleural effusions are seen. LIVER: Unremarkable. GALLBLADDER AND BILE DUCTS:Prior cholecystectomy is noted. PANCREAS: Unremarkable. SPLEEN: Unremarkable. ADRENAL GLANDS: Unremarkable. KIDNEYS, URETERS, AND BLADDER: The kidneys appear within normal limits. There is no hydronephrosis or hydroureter. No urinary calculi are seen. STOMACH AND BOWEL: Unremarkable appearance of the stomach and bowel. No evidence of bowel obstruction. No evidence suggesting enteritis or colitis. APPENDIX:Normal appendix. PERITONEUM: No free fluid. No free air. LYMPH NODES: No lymphadenopathy is evident. REPRODUCTIVE:Prior hysterectomy is noted. VASCULATURE: No evidence of abdominal aortic aneurysm. BONES: No aggressive appearing osseous lesion. No acute osseous pathology evident. MISCELLANEOUS:There is a small, omentum containing. Umbilical hernia. IMPRESSION: No acute intra-abdominal or pelvic abnormality. Time portable performed: Fluoroscopy time in seconds: Number of Exposures: Contrast Agent in ml: Method of Administration: REPORT SIGNATURE ON FILE Reported By: Higinio Betancourt MD 02/19/202342 Dictation Date/Time: 02/19/202342 Transcribed Date/Time: 02/19/202342 Pipe Wrapping Machine Operator: Name Value Range Interpretation Code Description Data Elizabeth rce(s) Supporting Document(s) ID Date Data Source [id number] 02/19/2020 11:22:00 PM EDT [facility] Name Value Range Interpretation Code Description Data Elizabeth rce(s) Supporting Document(s) Sodium 130 mmol/L 136-145 Below low normal [facility] Potassium 3.5-5.1 Normal (applies to non-numeric resul ts) [facility] Chloride 93 mmol/L 98-107 Below low normal [facility] Carbon Dioxide CO2 21-32 Normal (applies to non-numer ic results) [facility] Anion Gap 5.0-16.0 Normal (applies to non-numeric resul ts) [facility] BUN 9 mg/dL 7-18 Normal (applies to non-numeric results) [facility] Creatinine,Serum 0.7-1.2 Normal (applies to non-numeric results) [facility] GFR >60 Normal (applies to non-numeric results) [facility] Glucose Level 124 mg/dL 60-[address] [facility] Reference range is only applicable when patient is fasting Note the following drug interference: Sulfasalazine Sulfapyridine Can see falsely depressed Can see falsely elevated result with up to 17% results with up to 11% decrease in measurement increase in measurement Recommend patients be collected for this test prior to administration of either drug. Calcium 8.5-10.1 Normal (applies to non-numeric resul ts) [facility] Bilirubin,Total 0.1-1.9 Normal (applies to non-numeric results) [facility] SGOT(AST) 20 U/L 15-37 Normal (applies to non-numeric resul ts) [facility] Note the following drug interference: Sulfasalazine Sulfapyridine Can see falsely depressed Can see falsely elevated result with up to 10% results with up to 10% decrease in measurement increase in measurement Recommend patients be collected for this test prior to administration of either drug. SGPT(ALT) 30 U/L 12-78 Normal (applies to non-numeric resul ts) [facility] Note the following drug interference: Sulfasalazine Sulfapyridine Can see falsely depressed Can see falsely elevated result with up to 29% results with up to 10% decrease in measurement increase in measurement Recommend patients be collected for this test prior to administration of either drug. Alkaline Phosphatase 81 U/L 38-126 Normal (applies to non-num sukumar results) [facility] can increase Alkaline Phosp le vels up to 2 times the normal adult value. Normal values for children and adolescents are 2 to 3 times the normal adult value. Total Protein 6.0-8.2 Normal (applies to non-numeric re sults) [facility] Albumin Level 3.4-5.0 Normal (applies to non-numeric re sults) [facility] ID Date Data Source [id number] 02/19/2020 11:22:00 PM EDT [facility] Name Value Range Interpretation Code Description Data Elizabeth rce(s) Supporting Document(s) Amylase 18 U/L 25-115 Below low normal [facility] spital ID Date Data Source [id number] 02/19/2020 11:22:00 PM EDT [facility] Name Value Range Interpretation Code Description Data Elizabeth rce(s) Supporting Document(s) Troponin I 0.000-0.056 Normal (applies to non-numeric resu lts) [facility] ID Date Data Source [id number] 02/19/2020 11:22:00 PM EDT [facility] Name Value Range Interpretation Code Description Data Elizabeth rce(s) Supporting Document(s) Lipase 152 U/L 73-393 Normal (applies to non-numeric resul ts) [facility] ID Date Data Source [id number] 02/19/2020 10:44:00 PM EDT [facility] Collected By: Nurse Initials: pc Time Collected: 2218 Collected By: Nurse Initials: pc Time Collected: 2218 Name Value Range Interpretation Code Description Data Elizabeth rce(s) Supporting Document(s) Color,Urine Colorl-Dk Y Normal (applies to non-numeric res ults) [facility] Clarity,Urine Clear Normal (applies to non-numeric re sults) [facility] Specific [place],Urine 1.005-1.030 Normal (applies to non- numeric results) [facility] pH,Urine 5.0-8.0 Normal (applies to non-numeric resul ts) [facility] Protein,Urine Negative Normal (applies to non-numeric re sults) [facility] Glucose,Urine Negative Normal (applies to non-numeric re sults) [facility] Ketones,Urine Negative Normal (applies to non-numeric re sults) [facility] Blood,Urine Negative Normal (applies to non-numeric resu lts) [facility] Bilirubin,Urine Negative Normal (applies to non-numeric results) [facility] Urobilinogen,Urine 0.2-1.0 Normal (applies to non-numer ic results) [facility] Leukocyte Esterase,Urine Negative Normal (applies to non -numeric results) [facility] Nitrite,Urine Negative Normal (applies to non-numeric re sults) [facility] WBC,Urine None Seen [facility] Bacteria,Urine None Seen [facility] ital ID Date Data Source [id number] 02/19/2020 10:44:00 PM EDT [facility] Collected By: Nurse Initials: pc Time Collected: 2218 Collected By: Nurse Initials: pc Time Collected: 2218 Name Value Range Interpretation Code Description Data Elizabeth rce(s) Supporting Document(s) HCG,Ur Negative Normal (applies to non-numeric results) [facility] ID Date Data Source [id number] 02/19/2020 10:37:00 PM EDT [facility] Name Value Range Interpretation Code Description Data Elizabeth rce(s) Supporting Document(s) White Blood Count 3.5-10.5 Above high normal [facility] Red Blood Count 3.90-5.00 Above high normal [facility] Hemoglobin 12.0-15.5 Above high normal [facility] Hematocrit 34.9-44.5 Above high normal [facility] Mean Corpuscular Volume 81.2-95.1 Normal (applies to non- numeric results) [facility] Mean Corpuscular Hgb 25.6-32.2 Normal (applies to non-num sukumar results) [facility] Mean Corpuscular Hgb Conc 32.0-36.0 Normal (applies to no n-numeric results) [facility] Red Cell Distribution Width 11.9-15.5 Normal (appli es to non-numeric results) [facility] Platelet Count 304 x10 3/uL 150-450 Normal (applies to non-numeric results) [facility] Mean Platelet Volume 9.4-12.4 Normal (applies to non-num sukumar results) [facility] Neutrophils% (Auto) 31.0-71.0 Normal (applies to non-nume brianne results) [facility] Lymphocytes% (Auto) 20.0-55.0 Normal (applies to non-nume brianne results) [facility] Monocytes% (Auto) 4.0-12.0 Normal (applies to non-numeri c results) [facility] Eosinophils% (Auto) 1.0-8.0 Normal (applies to non-nume brianne results) [facility] Basophils% (Auto) 0.0-2.0 Normal (applies to non-numeri c results) [facility] Immature Granulocytes% (Auto) 0.0-2.0 Normal (pavithra lies to non-numeric results) [facility] Neutrophils# (Auto) 1.50-6.20 Above high normal [facility] Lymphocytes# (Auto) 1.20-4.00 Normal (applies to non-nume brianne results) [facility] Monocytes# (Auto) 0.00-0.90 Above high normal [facility] Eosinophils# (Auto) 0.00-0.50 Normal (applies to non-nume brianne results) [facility] Basophils# (Auto) 0.00-0.20 Normal (applies to non-numeri c results) [facility] Immature Granulocytes# (Auto) 0.00-7.00 No rmal (applies to non-numeric results) [facility] ID Date Data Source [id number] 02/19/2020 09:50:00 PM EDT [facility] ([facility]) Name Value Range Interpretation Code Description Data Elizabeth rce(s) Supporting Document(s) Laboratory test finding (navigational concept) 3.6 3.4-5.0 [facility] ([facility]) Laboratory test finding (navigational concept) 30 U/L 12-78 [facility] ([facility]) Note the following drug interference: Sulfasalazine Sulfapyridine Can see falsely depressed Can see falsely elevated result with up to 29% results with up to 10% decrease in measurement increase in measurement Recommend patients be collected for this test prior to administration of either drug. Alkaline phosphatase [Enzymatic activity/volume] in Serum or Plasma 81 U/L 38-126 [facility] ([facility]) can increase Alkaline Phosp le vels up to 2 times the normal adult value. Normal values for children and adolescents are 2 to 3 times the normal adult value. Total Protein 7.4 6.0-8.2 [facility] ([facility]) Bilirubin,Total 0.3 0.1-1.9 [facility] ([facility]) Calcium [Mass/volume] in Serum or Plasma 8.9 8.5-10.1 [facility] ([facility]) Laboratory test finding (navigational concept) 20 U/L 15-37 [facility] ([facility]) Note the following drug interference: Sulfasalazine Sulfapyridine Can see falsely depressed Can see falsely elevated result with up to 10% results with up to 10% decrease in measurement increase in measurement Recommend patients be collected for this test prior to administration of either drug. Laboratory test finding (navigational concept) 0.7 0.7-1.2 [facility] ([facility]) Laboratory test finding (navigational concept) 124 mg/dL 6 0-99 Above high normal [facility] ([facility]) Reference range is only applicable when patient is fasting Note the following drug interference: Sulfasalazine Sulfapyridine Can see falsely depressed Can see falsely elevated result with up to 17% results with up to 11% decrease in measurement increase in measurement Recommend patients be collected for this test prior to administration of either drug. Glomerular filtration rate/1.73 sq M.pre dicted [Volume Rate/Area] in Serum or Plasma by Creatinine-based formula (MDRD) Laboratory test result [facility] ([facility]) Laboratory test finding (navigational concept) 27.4 21-32 [facility] ([facility]) BUN 9 mg/dL 7-18 [facility] ([facility]) Anion Gap 9.6 5.0-16.0 [facility] ([facility]) Chloride 93 mmol/L 98-107 Below low normal [facility] ( [facility]) Sodium 130 mmol/L 136-145 Below low normal [facility] ( [facility]) Potassium 3.5 3.5-5.1 [facility] ([facility]) ID Date Data Source [id number] 02/19/2020 09:50:00 PM EDT [facility] ([facility]) Name Value Range Interpretation Code Description Data Elizabeth rce(s) Supporting Document(s) Amylase 18 U/L 25-115 Below low normal [facility] ( [facility]) ID Date Data Source [id number] 02/19/2020 09:50:00 PM EDT [facility] ([facility]) Name Value Range Interpretation Code Description Data Elizabeth rce(s) Supporting Document(s) Troponin I Laboratory test result 0.000-0.056 [facility] ([facility]) ID Date Data Source [id number] 02/19/2020 09:50:00 PM EDT [facility] ([facility]) Name Value Range Interpretation Code Description Data Elizabeth rce(s) Supporting Document(s) Lipase 152 U/L 73-393 [facility] ([facility]) ID Date Data Source [id number] 02/19/2020 09:50:00 PM EDT [facility] ([facility]) Name Value Range Interpretation Code Description Data Elizabeth rce(s) Supporting Document(s) Laboratory test finding (navigational concept) Laboratory test result [facility] ([facility]) Laboratory test finding (navigational concept) Laboratory test result [facility] ([facility]) Laboratory test finding (navigational concept) Laboratory test result [facility] ([facility]) Laboratory test finding (navigational concept) Laboratory test result [facility] ([facility]) Laboratory test finding (navigational concept) 0.2 0.2-1.0 [facility] ([facility]) Laboratory test finding (navigational concept) Laboratory test result [facility] ([facility]) Laboratory test finding (navigational concept) Laboratory test result [facility] ([facility]) Laboratory test finding (navigational concept) Laboratory test result [facility] ([facility]) Laboratory test finding (navigational concept) Laboratory test result [facility] ([facility]) Laboratory test finding (navigational concept) Laboratory test result [facility] ([facility]) Laboratory test finding (navigational concept) Laboratory test result [facility] ([facility]) Laboratory test finding (navigational concept) 6.0 5.0-8.0 [facility] ([facility]) Laboratory test finding (navigational concept) Laboratory te st result 1.005-1.030 [facility] ([facility]) Laboratory test finding (navigational concept) Laboratory test result 0-0 [facility] ([facility]) ID Date Data Source [id number] 02/19/2020 09:50:00 PM EDT [facility] ([facility]) Name Value Range Interpretation Code Description Data Elizabeth rce(s) Supporting Document(s) Laboratory test finding (navigational concept) Laboratory test result [facility] ([facility]) ID Date Data Source [id number] 02/19/2020 09:50:00 PM EDT [facility] ([facility]) Name Value Range Interpretation Code Description Data Elizabeth rce(s) Supporting Document(s) Laboratory test finding (navigational concept) 8.6 4.0-12.0 [facility] ([facility]) Laboratory test finding (navigational concept) 29.9 20.0-55.0 [facility] ([facility]) Laboratory test finding (navigational concept) 0.5 0.0-2.0 [facility] ([facility]) Laboratory test finding (navigational concept) 0.3 0.0-2.0 [facility] ([facility]) Laboratory test finding (navigational concept) 2.0 1.0-8.0 [facility] ([facility]) Laboratory test finding (navigational concept) 0.24 0.00-0.50 [facility] ([facility]) Laboratory test finding (navigational concept) 3.57 1.20-4.00 [facility] ([facility]) Laboratory test finding (navigational concept) 1.03 0 .00-0.90 Above high normal [facility] ([facility]) Laboratory test finding (navigational concept) 7.01 1 .50-6.20 Above high normal [facility] ([facility]) Laboratory test finding (navigational concept) 0.06 0.00-0.20 [facility] ([facility]) White Blood Count 12.0 3.5-10.5 Above high normal [facility] ([facility]) Laboratory test finding (navigational concept) 0.04 0.00-7.00 [facility] ([facility]) Hematocrit [Volume Fraction] of Blood by Automated count 45.8 34.9-44.5 Above high normal [facility] ([facility]) Hemoglobin 15.7 12.0-15.5 Above high normal [facility] ([facility]) Red Blood Count 5.30 3.90-5.00 Above high normal [facility] ([facility]) Laboratory test finding (navigational concept) 29.6 25.6-32.2 [facility] ([facility]) Laboratory test finding (navigational concept) 34.3 32.0-36.0 [facility] ([facility]) Mean Corpuscular Volume 86.4 81.2-95.1 M [facility] ([facility]) Red Cell Distribution Width 12.5 11.9-15.5 [facility] ([facility]) Laboratory test finding (navigational concept) 304 x103/uL 150-450 [facility] ([facility]) Mean Platelet Volume 10.7 9.4-12.4 [facility] ([facility]) Laboratory test finding (navigational concept) 58.7 31.0-71.0 [facility] ([facility]) ID Date Data Source [id number] 02/09/2020 12:52:00 AM EDT [facility] ([facility]) Name Value Range Interpretation Code Description Data Elizabeth rce(s) Supporting Document(s) Thyroid Stimulating Hormone Laboratory test result 0.358-3.740 Bel ow low normal [facility] ([facility]) ID Date Data Source [id number] 02/09/2020 12:52:00 AM EDT [facility] ([facility]) Name Value Range Interpretation Code Description Data Elizabeth rce(s) Supporting Document(s) Thyroxine (T4) Laboratory test result 4.5-12.0 Above high normal [facility] ([facility]) ID Date Data Source [id number] 02/09/2020 12:52:00 AM EDT [facility] ([facility]) Name Value Range Interpretation Code Description Data Elizabeth rce(s) Supporting Document(s) Laboratory test finding (navigational concept) Laboratory test result [facility] ([facility]) ID Date Data Source [id number] 02/09/2020 12:52:00 AM EDT [facility] ([facility]) Name Value Range Interpretation Code Description Data Elizabeth rce(s) Supporting Document(s) Total Protein Laboratory test result 6.4-8.2 [facility] ([facility]) Bilirubin,Direct Laboratory test result 0.0-0.2 [facility] ([facility]) Albumin Laboratory test result 3.2-5.2 [facility] ([facility]) Bilirubin,Total Laboratory test result 0.2-1.0 [facility] ([facility]) Aspartate aminotransferase [Enzymatic activity/volume] in Serum or Plasma Laboratory test result 7-37 [facility] ([facility]) Alkaline phosphatase [Enzymatic activity/volume] in Se rum or Plasma Laboratory test result 45-117 [facility] ([facility]) Alanine aminotransferase [Enzymatic activity/volume] i n Serum or Plasma Laboratory test result 12-78 [facility] ([facility]) Albumin/Globulin Ratio 1.2 1.2-2.2 [facility] ([facility]) ID Date Data Source [id number] 02/09/2020 12:51:00 AM EDT [facility] ([facility]) Name Value Range Interpretation Code Description Data Elizabeth rce(s) Supporting Document(s) Laboratory test finding (navigational concept) Laboratory test r esult 0.4-2.0 Above upper panic limits [facility] ([facility]) ID Date Data Source [id number] 02/09/2020 12:24:00 AM EDT [facility] ([facility]) Name Value Range Interpretation Code Description Data Elizabeth rce(s) Supporting Document(s) Lymphocytes/100 leukocytes in Blood by Automated count Labor atory test result 24.0-44.0 Below low normal [facility] ([facility]) Neutrophils % Laboratory test result 36.0-66.0 Above high normal [facility] ([facility]) Platelet Count, Automated Laboratory test result 150-450 [facility] ([facility]) Miller % Laboratory test result 0.0-5.0 Above high normal [facility] ([facility]) Red Cell Distribution Width Laboratory test result 11.5-14.5 [facility] ([facility]) Mean Corpuscular HGB Conc Laboratory test result 32.0-36.5 [facility] ([facility]) Baso % Laboratory test result 0.0-1.0 [facility] ([facility]) Eos % Laboratory test result 0.0-3.0 [facility] ([facility]) Nucleated Red Blood Cell % Laboratory test result 0-0 [facility] ([facility]) Immature Granulocyte % Laboratory test result 0-3.0 [facility] ([facility]) Neutrophils # Laboratory test result 1.5-8.5 Above high normal [facility] ([facility]) Miller # Laboratory test result 0.0-0.8 [facility] ([facility]) Lymph # Laboratory test result 1.5-5.0 Below low normal [facility] ([facility]) Baso # Laboratory test result 0.0-0.2 [facility] ([facility]) Mean Corpuscular Hemoglobin Laboratory test result 27.0-33.0 [facility] ([facility]) Eos # Laboratory test result 0.0-0.5 [facility] ([facility]) Hemoglobin Laboratory test result 12.0-15.5 [facility] ([facility]) Mean Corpuscular Volume Laboratory test result 80.0-96.0 [facility] ([facility]) Hematocrit [Volume Fraction] of Blood by Automated count Lab oratory test result 36.0-47.0 [facility] ([facility]) White Blood Count Laboratory test result 4.0-10.0 Above high normal [facility] ([facility]) Red Blood Count Laboratory test result 4.00-5.40 [facility] ([facility]) ID Date Data Source [id number] 02/09/2020 12:13:00 AM EDT [facility] ([facility]) Name Value Range Interpretation Code Description Data Elizabeth rce(s) Supporting Document(s) Laboratory test finding (navigational concept) Laboratory test r esult 38.0-51.0 [facility] ([facility]) Laboratory test finding (navigational concept) Laboratory test r esult 70-105 Above high normal [facility] ([facility]) Laboratory test finding (navigational concept) Laboratory test resu lt 4.5-5.3 [facility] ([facility]) Laboratory test finding (navigational concept) Laboratory test r esult 136-145 Below low normal [facility] ([facility]) Laboratory test finding (navigational concept) Laboratory test resu lt 3.5-5.1 [facility] ([facility]) Laboratory test finding (navigational concept) Laboratory test r esult 98-109 Below low normal [facility] ([facility]) Laboratory test finding (navigational concept) Laboratory test r esult 23.0-27.0 [facility] ([facility]) Urea nitrogen [Mass/volume] in Serum or Plasma Laboratory test result 8-26 [facility] ([facility]) Creatinine [Mass/volume] in Serum or Plasma Laboratory test resu lt 0.6-1.3 Below low normal [facility] ([facility]) ID Date Data Source [id number] 02/08/2020 12:11:00 AM EDT [facility] ([facility]) Name Value Range Interpretation Code Description Data Elizabeth rce(s) Supporting Document(s) Laboratory test finding (navigational concept) Laboratory test result [facility] ([facility]) This lab was ordered by [facility] a nd reported by [facility]. ID Date Data Source [id number] 12/25/2019 05:13:16 PM EDT [facility] Measurements & CalculationsHeight: 70.8 inches 179.83 cm Weight: 258 pounds 117.27 kg Body Mass Index (BMI): 36.32BMI Interpretation: ObeseBody Surface Area (BSA): 2.35Vital SignsTemperature: 97.6F 36.44C tympanic Pulse Rate: 98 beats/minuteRespiratory Rate: 20 respirations/minuteBlood Pressure: 112/77 right arm sitting automaticO2 Saturation: 93% room airVital Signs performed by: Francisca Whelan , December 25, 2019 5:23 PMNurses Note [facility]'t go [facility] transportation and issue with fathertrouble with swallowing taking food and medication looking for a referral to get upper giconcerned about diabetes as she can't take pills-looking for injections injury to neck -stoma very sorefirst layer of skin was cellulitis - still cddraining and infected-antibiotics are not working-needs tools for suctioning machine as stoma gets plugged - [facility] is not takiing care of suppl iesneeds supplies reordered they [facility] girectal bleedingInitial Intake Information From: /patientRoom #: 12Infectious Disease / Travel ScreeningRecent travel for you or any close contacts? NoHave you had any close contact with anyone diagnosed with or under investigation for COVID-19 (coronavirus)? NoFever? NoRespiratory symptoms: cough, cold, congestion, shortness of breath, difficulty breathing? NoLoss of smell? NoLoss of taste? NoSmoking, Tobacco, Vaping or Smoke Exposure StatusSmoke Status: current every day smokerTobacco Use: YesAdv to Quit: YesDo you vape? NoMenstrual HistoryComments: total hysterectomyHealthcare HistorySince your last office visit...Have you been admitted to the hospital? NoHave you been to an emergency room (ER) or urgent care clinic? YesHave you seen another healthcare provider? NoHave you seen a dentist? NoIntake performed by: Francisca Whelan , December 25, 2019 5:22 PMRate Your HealthIn general, would you say your health is? FairPain AssessmentPain ScaleNumeric Rating Scale: 5 / 10Location: neckDuration: chronicPatient History Medical History:Anxiety DisorderDepressionDiabetes, Type 2G E R DThyroid DisorderTotal Abdominal HysterectomyHyperlipidemiastrokerectal bleedingSurgical History:Cholecystectomy-1998Total Abdominal Babfqllxlkqo-[id number]-6784lkunjfqazlu-2002teeth removed m38Momozh History:Family History of ArthritisFH of AnxietyFamily History of AsthmaFH DepressionFH DiabetesFH Heart DiseaseFH High CholesterolFH Lung/Respiratory DiseaseFH Other CancerFamily History Coronary Heart Disease male < 55FH HeadachesFH Lung CancerFH Psychiatric CareSocial/Personal History:Mother passed recently (06-02-2014)Smoking History:Patient has never smoked. Advised to Quit/Tobacco Education: YesChief Complaintfollow up ed-referral to ent-for stoma/rectal bleeding- /lab results from 11/11History of Present Illness (HPI)Pt c/o chronic yellowish sputum/d/c from her stoma. ENT had no constructive advice. STill waiting for pulmonary consult. No fevers.Transitions of Care InboundAdult Preventive CareProvider Calculated and Reviewed all Clinical Protocols for patient today. Screening Tobacco Screening: Smoking Status: current every day smoker (12/25/2019) Tobacco Use: Currently (12/25/2019) Advised to Quit: Yes (12/25/2019)Review of Systems General: Denies loss of appetite, chills, dizziness, fatigue, fever, continued fever, headache, feeling ill, sweats, night sweats, sleep disturbances, weight loss. Cardiovascular: Denies chest pain, palpitations, feeling faint, trouble breathing w/exertion, SOB upon lying down, SOB at night, peripheral edema, elevated blood pressure, decreased heart rate. Respiratory: Complains of cough. Denies difficulty breathing, shortness of breath, excessive sputum, coughing up blood, wheezing, chest pain. Physical ExamGeneral Appearance: well nourished, well hydrated, no acute distressPharynx: stoma colonizedRespiratory, Auscultation: clear to auscultation bilaterally; no rales, rhonchi, or wheezesRespiratory, Effort: no intercostal retractions or use of accessory musclesCardiovascular, Auscultation: S1, S2 audible; no murmur, rub, or gallop; RRRGait & Station: normalOrientation: oriented to time, place, and personMood & Affect: no depression, anxiety, or agitationJudgment & Insight: intactCare Management Plan Transitions of CareInboundRate Your HealthIn general, would you say your health is? FairAssessment & Plan Problems:Added: Menopausal flushing (ICD-627.2) (PIG54-Z41.1)Medication Changes:Refilled:LISINOPRIL 20 MG ORAL TABLET-One tablet by mouth every day Qty: 30[Tablet] Refills: 5 Method: ElectronicLABETALOL HCL 100 MG ORAL TABLET- take one tab po bid Qty: 60[Tablet] Refills: 5 Method: ElectronicOMEPRAZOLE 40 MG ORAL CAPSULE DELAYED RELEASE-One tablet by mouth every day Qty: 30[Capsule] Refills: 5 Method: ElectronicHYDROXYZINE HCL 10 MG ORAL TABLET- One po q8h prn anxiety. MDD 3. Qty: 90[Tablet] Refills: 1 Method: ElectronicFLONASE 50 MCG/ACT NASAL SUSPENSION-one spray in each nostril daily Qty: 1 Refills: 5 Method: Print then Give to PatientGABAPENTIN 600 MG ORAL TABLET-take 2 tab po tid Qty: 120[Tablet] Refills: 5 Method: Electroni cLEVOTHYROXINE SODIUM 200 MCG ORAL TABLET-take one tab po daily on an empty stomach Qty: 30[Tablet] Refills: 5 Method: ElectronicVENLAFAXINE HCL 75 MG ORAL TABLET-one tab po BID Qty: 60[Tablet] Refills: 1 Method: ElectronicLISINOPRIL 20 MG ORAL TABLET-One tablet by mouth every day Qty: 30[Tablet] Refills: 5 Method: ElectronicOMEPRAZOLE 40 MG ORAL CAPSULE DELAYED RELEASE-One tablet by mouth every day Qty: 30[Capsule] Refills: 5 Method: ElectronicHYDROXYZINE HCL 10 MG ORAL TABLET-One po q8h prn anxiety. MDD 3. Qty: 90[Tablet] Refills: 1 Method: ElectronicFLONASE 50 MCG/ACT NASAL JOSHUA SPENSION-one spray in each nostril daily Qty: 1 Refills: 5 Method: Print then Give to PatientGABAPENTIN 600 MG ORAL TABLET-take 2 tab po tid Qty: 120[Tablet] Refills: 5 Method: ElectronicGLYBURIDE 5 MG ORAL TABLET-take one tab po daily with food Qty: 30[Tablet] Refills: 5 Method: ElectronicGABAPENTIN 600 MG ORAL TABLET-take 2 tab po tid Qty: 120[Tablet] Refills: 5 Method: ElectronicMELOXICAM 15 MG ORAL TABLET-take one tab po daily Qty: 30[Tablet] Refills: 3 Method: ElectronicNew Prescription:DULOXETINE HCL 60 MG ORAL CAPSULE DELAYED RELEASE PARTICLES-one tab po QD Qty: 30[Capsule] Refills: 5 Method: ElectronicDULOXETINE HCL 60 MG ORAL CAPSULE DELAYED RELEASE PARTICLES-one tab po QD Qty: 30[Capsule] Refills: 5 Method: ElectronicOrders:Adult - Ofc Vst, EST, Level III [CPT-47621] CBC W/DIFF [CPT-45320] ESTROGENS TOTAL [CPT-23493] PROGESTERONE [CPT-06439] GONADOTROPIN FOLLICLE STIMULATING HORMONE [CPT-50566] GONADOTROPIN LUTEINIZING HORMONE [CPT-57900] TSH [CPT-99943] Medications:MELOXICAM 15 MG ORAL TABLET (MELOXICAM) take one tab po daily #30[Tablet] x 3 Route:ORAL Entered and Authorized by: Jai Mccarty DO Method used: Electronically to [facility] (retail) [address] [place] [address] [phone] Note to Pharmacy: Route: ORAL; RxID: [id number] 600 MG ORAL TABLET (GABAPENTIN) take 2 tab po tid #120[Tablet] x 5 Route:ORAL Entered and Authorized by: Jai Mccarty DO Method used: Electronically to [facility] (retail) [address] [place] [address] [phone] Note to Pharmacy: Route: ORAL; RxID: [id number] 5 MG ORAL TABLET (GLYBURIDE) take one tab po daily with food #30[Tablet] x 5 Route:ORAL Entered and Authorized by: Jai Mccarty DO Method used: Electronically to [facility] (retail) [address] [place] [address] [phone] Note to Pharmacy: Route: ORAL; RxID: [id number] 600 MG ORAL TABLET (GABAPENTIN) take 2 tab po tid #120[Tablet] x 5 Route:ORAL Entered and Authorized by: Jai Mccarty DO Method used: Electronically to [facility] (retail) [address] [place] [address] [id number] Note to Pharmacy: Route: ORAL; RxID: [id number] 50 MCG/ACT NASAL SUSPENSION (FLUTICASONE PROPIONATE) one spray in each nostril daily #1 x 5 Route:NASAL Entered and Authorized by: Jai Mccarty DO Method used: Print then Give to Patient Note to Pharmacy: Route: NASAL; RxID: [id number] YDROXYZINE HCL 10 MG ORAL TABLET (HYDROXYZINE HCL) One po q8h prn anxiety. MDD 3. #90[Tablet] x 1 Route:ORAL Entered and Authorized by: Jai Mccarty DO Method used: Electronically to [facility] (retail) [address] [place] [address] [phone] Ph: [phone] Note to Pharmacy: Route: ORAL; RxID: [id number] 40 MG ORAL CAPSULE DELAYED RELEASE (OMEPRAZOLE) One tablet by mouth every day #30[Capsule] x 5 Route:ORAL Entered and Authorized by: Jai Mccarty DO Method used: Electronically to [facility] (retail) [address] [place] [address] [id number] Note to Pharmacy: Route: ORAL; RxID: [id number] 20 MG ORAL TABLET (LISINOPRIL) One tablet by mouth every day #30[Tablet] x 5 Route:ORAL Entered and Authorized by: Jai Mccarty DO Method used: Electronically to [facility] (retail) [address] [place] [address] [phone] Note to Pharmacy: Route: ORAL; RxID: [id number] 75 MG ORAL TABLET (VENLAFAXINE HCL) one tab po BID #60[Tablet] x 1 Route:ORAL Entered and Authorized by: Jai Mccarty DO Method used: Electronically to [facility] (retail) [address] [place] [address] [id number] Note to Pharmacy: Route: ORAL; RxID: [id number] 60 MG ORAL CAPSULE DELAYED RELEASE PARTICLES (DULOXETINE HCL) one tab po QD #30[Capsule] x 5 Route:ORAL Entered and Authorized by: Jai Mccarty DO Method used: Electronically to [facility] (retail) [address] [place] [address] [phone] Note to Pharmacy: Route: ORAL; RxID: [id number] 60 MG ORAL CAPSULE DELAYED RELEASE PARTICLES (DULOXETINE HCL) one tab po QD #30[Capsule] x 5 Route:ORAL Entered and Authorized by: Jai Mccarty DO Method used: Electronically to [facility]* (retail) [address] [place] [address] Note to Pharmacy: Route: ORAL; RxID: [id number] 200 MCG ORAL TABLET (LEVOTHYROXINE SODIUM) take one tab po daily on an empty stomach #30[Tablet] x 5 Route:ORAL Entered and Authorized by: Jai Mccarty DO Method used: Electronically to [facility] (retail) [address] [place] [address] [phone] Note to Pharmacy: Route: ORAL; RxID: [id number] 600 MG ORAL TABLET (GABAPENTIN) take 2 tab po tid #120[Tablet] x 5 Route:ORAL Entered and Authorized by: Jai Mccarty DO Method used: Electronically to [facility] (retail) [address] [place] [address] [phone] Note to Pharmacy: Route: ORAL; RxID: [id number] 50 MCG/ACT NASAL SUSPENSION (FLUTICASONE PROPIONATE) one spray in each nostril daily #1 x 5 Route:NASAL Entered and Authorized by: Jai Mccarty DO Method used: Print then Give to Patient Note to Pharmacy: Route: NASAL; RxID: [id number] [id number] 10 MG ORAL TABLET (HYDROXYZINE HCL) One po q8h prn anxiety. MDD 3. #90[Tablet] x 1 Route:ORAL Entered and Authorized by: Jai Mccarty DO Method used: Electronically to [facility] (retail) [address] [place] [address] [phone] Note to Pharmacy: Route: ORAL; RxID: [id number] 40 MG ORAL CAPSULE DELAYED RELEASE (OMEPRAZOLE) One tablet by mouth every day #30[Capsule] x 5 Route:ORAL Entered and Authorized by: Jai Mccarty DO Method used: Electronically to [facility] (retail) [address] [place] [address] [phone] Note to Pharmacy: Route: ORAL; RxID: [id number] 100 MG ORAL TABLET (LABETALOL HCL) take one tab po bid #60[Tablet] x 5 Entered and Authorized by: Jai Mccarty DO Method used: Electronically to [facility] (retail) [address] [place] [address] [id number] RxID: [id number] 20 MG ORAL TABLET (LISINOPRIL) One tablet by mouth every day #30[Tablet] x 5 Route:ORAL Entered and Authorized by: Jai Mccarty DO Method us ed: Electronically to [facility] (retail) [address] [place] [address] [phone] Ph: [phone] Note to Pharmacy: Route: ORAL; RxID: [id number] signed by Jai Mccarty DO on 12/25/2019 at 5:43 PM Name Value Range Interpretation Code Description Data Elizabeth rce(s) Supporting Document(s) ID Date Data Source [id number] 12/07/2019 09:22:00 AM EDT [facility] ([facility]) Name Value Range Interpretation Code Description Data Elizabeth rce(s) Supporting Document(s) Laboratory test finding (navigational concept) Laboratory test result [facility] ([facility]) Laboratory test finding (navigational concept) Laboratory test result [facility] ([facility]) ID Date Data Source [id number] 12/03/2019 08:14:00 AM EDT [facility] DATE OF EXAMINATION: 12/01/2019 2:43 EDT NECK W/IV CONTRAST HISTORY: Esophageal cancer. Pain. This CT exam was performed using the following dose reduction techniques:automated exposure control, adjustment of mA and or kV according to thepatient's size, and use of iterative reconstruction technique. Standard contiguous axial spiral imaging was obtained from the skull basethrough the thoracic inlet with contrast administration and with coronalreformatting. Patient is status post tracheostomy. Postradiation and postsurgical changes arenoted. Few scattered subcentimeter nodes are likely inflammatory in nature.Neoplastic process not excluded. Extensive plaque formation of both carotids isidentified. IMPRESSION: Postsurgical and postradiation changes as well as tracheostomy. Extensive plaque formation of carotids bilaterally. Subcentimeter jugular chain nodes likely inflammatory. Neoplastic involvement isnot excluded. Electronically signed in [facility] by: Sarbjit Cuadra M.D. 12/03/2019 8:09 EDT Name Value Range Interpretation Code Description Data [facility] rce(s) Supporting Document(s) ID Date Data Source [id number] 12/03/2019 01:47:00 AM EDT [facility] Patient: KATHY BRADSHAWo yudi Report - [facility].VisitID: [id number] [place] [address] [phone], FRegistration Date/Time: 12/01/2019 02:00 Weight:115.6 kg (S). Height/Length:71 inches (S). BMI:35.6 PAST HISTORYProblems:Cellulitis [Active].Hypertension [Chronic].Asthma [Chronic].Anxiety Reaction [Chronic].Elevated Cholesterol [Chronic].COPD - Chronic Obstructive Pulmonary Disease [Chronic].Depression [Chronic].Diabetes Mellitus [Chronic].Hemoptysis [Intermittent].CVA - Cerebrovascular Accident [Resolved].Cancer [Resolved].Pneumonia [Resolved].Bronchitis [Resolved].Contusion [Resolved].URI [Resolved].Fever [RuleOut].Bronchitis [RuleOut].Cough [RuleOut].URI [RuleOut]. Additional Surgeries:Cancer removal trachea.Cholecystectomy.Hysterectomy.Laryngectomy.Stoma.Teeth extraction.Tubal Ligation. Medications:Lisinopril Oral (Tablet 20 mg) 1 tablet, daily, last dose yesterday .Effexor XR Oral (Capsule Extended Release 24 Hour 75 mg) 1 capsule, 2x a day, last dose yesterday .Albuterol Sulfate Inhalation 2 puffs, PRN, last dose yesterday .Albuterol-Ipratropium Inhalation (Solution 0.5-2.5 (3) mg/3mL), PRN, last dose one day ago .BusPIRone HCl Oral 10 mg, 2x a day, last dose yesterday .Gabapentin Oral (Tablet 600 mg) 1 tablet, 3x a day, last dose yesterday .GlyBURIDE Oral unk, daily (not taking ).HydrOXYzine HCl Oral 10 mg, 3x a day before meals, last dose yesterday .Levothyroxine Sodium Oral 225 mcg, daily every AM, last dose yesterday am.MetFORMIN HCl Oral 1000mg , 2x a day, last dose yesterday .Omeprazole Oral 40 mg, daily, last dose yesterday . Allergies:fluoroquinolones.(hives)MDX - Moxifloxacin.(hives)MDX - SULFA (sulfonamide).(hives). FAMILY HISTORYNo significant family medical history. (Electronically signed by Sukumar Jean P.A. 12/01/2019 06:35) Addenda for KATHY BRADSHAW VisitID: [id number] Date: 12/01/2019 12/01/2019 19:13[facility] transfer center called at 1800 and spoke with Radha Cheung RN to report that Kathy Bradshaw had not shown up to the ED. Pt was accepted at 0550 this am and requested to go POV to [facility]. A call was placed to Kathy Noriega contact number by this RN. Kathy was not home but a conversation with her son Manan took place at 1805. The nursing catalyst supervisor instructed Manan to given his parents the phone number to contact the catalyst supervisor, and he verbalized understanding. [facility] was contacted and given the information just stated.(Electronically signed by Francisca Joshi R.N. - 12/01/2019 19:13) 12/03/2019 1:35ON 12/01/2019 2345, I received a return call from Mr. Summer Bradshaw, Kathy Noriega . I informed him that [facility] called to inform that the patient had not shown up. Mr Bradshaw stated that they would like to go to [place] and that the patient is not being taken care. I informed Mr. Bradshaw at this time that they were supposed to be at [facility] and that facility was expecting the patient, and if that wasn't what they wanted they should have informed the provider ELINOR Nielsen when he informed the patient that she had been accepted at [facility]. Mr. Bradshaw said at this time that his car was not running to well and I stated that instead of declining ambulance transport that maybe she should have gone by ambulance. I further stated that if they wanted her to be taken care of it is important to show up for appointments. Mr. Bradshaw said I being rude and that he doesn't deserve to be spoken to like that. I simply stated that he did not arrive at the hospital as scheduled and we were concerned about the welfare of the patient and Mr. Bradshaw ended the conversation by hanging up.(Electronically signed by Francisca Joshi R.N. - 12/03/2019 1:35) Name Value Range Interpretation Code Description Data Elizabeth rce(s) Supporting Document(s) ID Date Data Source [id number] 12/01/2019 07:15:00 PM EDT [facility] Patient: KATHY BRADSHAW Observatio n Report - [facility].VisitID: [id number] [place] [address] [phone], FRegistration Date/Time: 12/01/2019 02:00 Weight:115.6 kg (S). Height/Length:71 inches (S). BMI:35.6 PAST HISTORYProblems:Cellulitis [Active].Hypertension [Chronic].Asthma [Chronic].Anxiety Reaction [Chronic].Elevated Cholesterol [Chronic].COPD - Chronic Obstructive Pulmonary Disease [Chronic].Depression [Chronic].Diabetes Mellitus [Chronic].Hemoptysis [Intermittent].CVA - Cerebrovascular Accident [Resolved].Cancer [Resolved].Pneumonia [Resolved].Bronchitis [Resolved].Contusion [Resolved].URI [Resolved].Fever [RuleOut].Bronchitis [RuleOut].Cough [RuleOut].URI [RuleOut]. Additional Surgeries:Cancer removal trachea.Cholecystectomy.Hysterectomy.Laryngectomy.Stoma.Teeth extraction.Tubal Ligation. Medications:Lisinopril Oral (Tablet 20 mg) 1 tablet, daily, last dose yesterday .Effexor XR Oral (Capsule Extended Release 24 Hour 75 mg) 1 capsule, 2x a day, last dose yesterday .Albuterol Sulfate Inhalation 2 puffs, PRN, last dose yesterday .Albuterol-Ipratropium Inhalation (Solution 0.5-2.5 (3) mg/3mL), PRN, last dose one day ago .BusPIRone HCl Oral 10 mg, 2x a day, last dose yesterday .Gabapentin Oral (Tablet 600 mg) 1 tablet, 3x a day, last dose yesterday .GlyBURIDE Oral unk, daily (not taking ).HydrOXYzine HCl Oral 10 mg, 3x a day before meals, last dose yesterday .Levothyroxine Sodium Oral 225 mcg, daily every AM, last dose yesterday am.MetFORMIN HCl Oral 1000mg , 2x a day, last dose yesterday .Omeprazole Oral 40 mg, daily, last dose yesterday . Allergies:fluoroquinolones.(hives)MDX - Moxifloxacin.(hives)MDX - SULFA (sulfonamide).(hives). FAMILY HISTORYNo significant family medical history. (Electronically signed by Sukumar Jean P.A. 12/01/2019 06:35) Addenda for KATHY BRADSHAW VisitID: [id number] Date: 12/01/2019 12/01/2019 19:13[facility] transfer center called at 1800 and spoke with Radha Cheung RN to report that Kathy Bradshaw had not shown up to the ED. Pt was accepted at 0550 this am and requested to go POV to [facility]. A call was placed to Kathy Noriega contact number by this RN. Kathy was not home but a conversation with her son Manan took place at 1805. The nursing catalyst supervisor instructed Manan to given his parents the phone number to contact the catalyst supervisor, and he verbalized understanding. [facility] transfer d[facility]ey was contacted and given the information just stated.(Electronically signed by Francisca Joshi R.N. - 12/01/2019 19:13) Name Value Range Interpretation Code Description Data Elizabeth rce(s) Supporting Document(s) ID Date Data Source [id number] 12/01/2019 09:11:00 AM EDT [facility] DATE OF EXAMINATION: 12/01/2019 2:43 EDT CHEST W/IV CONTRAST HISTORY: 39-year-old esophageal cancer prior surgery pain TECHNIQUE: This CT exam was performed using the following dose reduction techniques:automatic exposure control, adjustment of mA and/or kV according to thepatient's size, and use of iterative reconstruction technique. Standard contiguous axial spiral imaging was obtained from lung apices to thelung bases with intravenous contrast administration and with coronalreformatting. FINDINGS: Lungs: Scarring is noted in both lung apices. Subsegmental atelectatic changesare identified. No focal mass.Pleural space: No effusionMediastinum: Distal esophagus and proximal stomach are grossly unremarkable. Nolymphadenopathy or pericardial effusionBones/joints: Degenerative changes. No pulmonary emboli IMPRESSION: Status post tracheostomy. Biapical pleural parenchymal scarring. DATE OF EXAMINATION: 12/01/2019 2:43 EDT CHEST W/IV CONTRAST HISTORY: Esophageal cancer. Pain. This CT exam was performed using the following dose reduction techniques:automated exposure control, adjustment of mA and or kV according to thepatient's size, and use of iterative reconstruction technique. Standard cont iguous axial spiral imaging was obtained from the skull basethrough the thoracic inlet with contrast administration and with coronalreformatting. Patient is status post tracheostomy. Postradiation and postsurgical changes arenoted. Few scattered subcentimeter nodes are likely inflammatory in nature.Neoplastic process not excluded. Extensive plaque formation of both carotids isidentified. IMPRESSION: Postsurgical and postradiation changes as well as tracheostomy. Extensive plaque formation of carotids bilaterally. Subcentimeter jugular chain nodes likely inflammatory. Neoplastic involvement isnot excluded. Electronically signed in [id number] by: Sarbjit Cuadra M.D. 12/01/2019 9:05 EDT Name Value Range Interpretation Code Description Data Elizabeth rce(s) Supporting Document(s) ID Date Data Source [id number] 12/01/2019 07:02:00 AM EDT [facility] Patient: KATHY BRADSHAW Observatio n Report - [facility]VisitID: [id number] [place] [address] [phone], FRegistration Date/Time: 12/01/2019 02:00 Weight:115.6 kg (S). Height/Length:71 inches (S). BMI:35.6 PAST HISTORYProblems:Cellulitis [Active].Hypertension [Chronic].Asthma [Chronic].Anxiety Reaction [Chronic].Elevated Cholesterol [Chronic].COPD - Chronic Obstructive Pulmonary Disease [Chronic].Depression [Chronic].Diabetes Mellitus [Chronic].Hemoptysis [Intermittent].CVA - Cerebrovascular Accident [Resolved].Cancer [Resolved].Pneumonia [Resolved].Bronchitis [Resolved].Contusion [Resolved].URI [Resolved].Fever [RuleOut].Bronchitis [RuleOut].Cough [RuleOut].URI [RuleOut]. Additional Surgeries:Cancer removal trachea.Cholecystectomy.Hysterectomy.Laryngectomy.Stoma.Teeth extraction.Tubal Ligation. Medications:Lisinopril Oral (Tablet 20 mg) 1 tablet, daily, last dose yesterday .Effexor XR Oral (Capsule Extended Release 24 Hour 75 mg) 1 capsule, 2x a day, last dose yesterday .Albuterol Sulfate Inhalation 2 puffs, PRN, last dose yesterday .Albuterol-Ipratropium Inhalation (Solution 0.5-2.5 (3) mg/3mL), PRN, last dose one day ago .BusPIRone HCl Oral 10 mg, 2x a day, last dose yesterday .Gabapentin Oral (Tablet 600 mg) 1 tablet, 3x a day, last dose yesterday .GlyBURIDE Oral unk, daily (not taking ).HydrOXYzine HCl Oral 10 mg, 3x a day before meals, last dose yesterday .Levothyroxine Sodium Oral 225 mcg, daily every AM, last dose yesterday am.MetFORMIN HCl Oral 1000mg , 2x a day, last dose yesterday .Omeprazole Oral 40 mg, daily, last dose yesterday . Allergies:fluoroquinolones.(hives)MDX - Moxifloxacin.(hives)MDX - SULFA (sulfonamide).(hives). FAMILY HISTORYNo significant family medical history. (Electronically signed by Sukumar Jean, PCharles 12/01/2019 06:35) Name Value Range Interpretation Code Description Data Elizabeth rce(s) Supporting Document(s) ID Date Data Source [id number] 12/07/2019 09:23:00 AM EDT [facility] Name Value Range Interpretation Code Description Data Elizabeth rce(s) Supporting Document(s) [facility] ID Date Data Source [id number] 12/01/2019 02:55:00 AM EDT [facility] ([facility]) Name Value Range Interpretation Code Description Data Elizabeth rce(s) Supporting Document(s) Laboratory test finding (navigational concept) 4.04 uIU/mL 0 .36-3.74 Above high normal [facility] ([facility]) ID Date Data Source [id number] 12/01/2019 02:55:00 AM EDT [facility] ([facility]) Name Value Range Interpretation Code Description Data Elizabeth rce(s) Supporting Document(s) Partial Thromboplastin Time 25.8 s 21.4-30.2 [facility] ([facility]) ID Date Data Source [id number] 12/01/2019 02:55:00 AM EDT [facility] ([facility]) Name Value Range Interpretation Code Description Data Elizabeth rce(s) Supporting Document(s) Inr 1.05 0.87-1.06 [facility] ([facility]) Laboratory test finding (navigational concept) 10.9 s 9.2-11.6 [facility] ([facility]) ID Date Data Source [id number] 12/01/2019 02:55:00 AM EDT [facility] ([facility]) Name Value Range Interpretation Code Description Data Elizabeth rce(s) Supporting Document(s) Albumin 4.8 gm/dL 3.4-5.0 [facility] ([facility]) Total Protein 9.1 g/dL 6.4-8.2 [facility] ([facility]) Total Bilirubin 0.7 mg/dL 0.2-1.0 [facility] ([facility]) Alkaline phosphatase [Enzymatic activity/volume] in Serum or Plasma 125 U/L 46-116 Above high normal [facility] ([facility]) Ast 29 U/L 15-37 [facility] ([facility]) Alt 42 U/L 12-78 [facility] ([facility]) Glomerular Filtration Rate 55 mL/min [facility] ([facility]) <content>GFR IS CALCULATED IN mL/min/1.7 3m2</content>
<content> </content>
<content>NORMAL FUNCTION: >90</content>
<content>MILDLY DECREASED: 60- 89</content>
<content>MILDY TO MODERATELY DECREASED: 45-59 </content>
<content>MODERATELY TO SEVERELY DECREASED: 30-44</cont ent>
<content>SEVERELY DECREASED: 15- 29</content>
<content>RENAL FAILURE: <15</content>
<content></content> Anion Gap 8.0 mmol/L 5-12 [facility] ([facility]) Co2 32 mmol/L 21-32 [facility] ([facility]) Calcium [Mass/volume] in Serum or Plasma 9.5 mg/dL 8.5-10.1 [facility] ([facility]) Chloride 94 mmol/L 98-107 [facility] ([facility]) Sodium 134 mmol/L 136-145 Below low normal [facility] ( [facility]) Potassium 3.7 mmol/L 3.5-5.1 [facility] ([facility]) Creatinine [Mass/volume] in Serum or Plasma 1.1 mg/dL 0.6-1.0 Above high normal [facility] ([facility]) Glucose [Mass/volume] in Serum or Plasma 154 mg/dL 74-106 Above high normal [facility] ([facility]) Blood Urea Nitrogen 15 mg/dL 7-18 [facility] ([facility]) ID Date Data Source [id number] 12/01/2019 02:55:00 AM EDT [facility] ([facility]) Name Value Range Interpretation Code Description Data Elizabeth rce(s) Supporting Document(s) Magnesium 2.0 mg/dL 1.8-2.4 [facility] ([facility]) ID Date Data Source [id number] 12/01/2019 02:55:00 AM EDT [facility] ([facility]) Name Value Range Interpretation Code Description Data Elizabeth rce(s) Supporting Document(s) Lactic Acid 0.9 mmol/L 0.4-2.0 [facility] ([facility]) ID Date Data Source [id number] 12/01/2019 02:55:00 AM EDT [facility] ([facility]) Name Value Range Interpretation Code Description Data Elizabeth rce(s) Supporting Document(s) C Reactive Protein 17.1 mg/L 0.0-3.0 Above high normal [facility] ([facility]) ID Date Data Source [id number] 12/01/2019 02:55:00 AM EDT [facility] ([facility]) Name Value Range Interpretation Code Description Data Elizabeth rce(s) Supporting Document(s) Laboratory test finding (navigational concept) Laboratory test result 0-5 [facility] ([facility]) Erythrocytes [#/area] in Urine sediment by Microscopy high power field Laboratory test result 0-3 [facility] ([facility]) Laboratory test finding (navigational concept) Laboratory test result [facility] ([facility]) Laboratory test finding (navigational concept) Laboratory test result [facility] ([facility]) URINE CULTURE ORDERED ID Date Data Source [id number] 12/01/2019 02:55:00 AM EDT [facility] ([facility]) Name Value Range Interpretation Code Description Data Elizabeth rce(s) Supporting Document(s) Urine Bilirubin Laboratory test result [facility] ([facility]) Blood [Presence] in Urine by Visual Laboratory test result [facility] ([facility]) Laboratory test finding (navigational concept) Laboratory test result 0-1 [facility] ([facility]) Laboratory test finding (navigational concept) Laboratory test result [facility] ([facility]) Laboratory test finding (navigational concept) Laboratory test result [facility] ([facility]) PH,Urine 5.5 5.0-9.0 [facility] ([facility]) Laboratory test finding (navigational concept) Laboratory test r esult Above high normal [facility] ([facility]) Laboratory test finding (navigational concept) Laboratory test result [facility] ([facility]) Laboratory test finding (navigational concept) Laboratory test result [facility] ([facility]) Laboratory test finding (navigational concept) 1.020 1.001-1.035 [facility] ([facility]) Laboratory test finding (navigational concept) Laboratory test result [facility] ([facility]) Laboratory test finding (navigational concept) Laboratory test result [facility] ([facility]) ID Date Data Source [id number] 12/01/2019 02:55:00 AM EDT [facility] ([facility]) Name Value Range Interpretation Code Description Data Elizabeth rce(s) Supporting Document(s) Miller % 10.4 % 2.0-10.0 Above high normal [facility] ([facility]) Lymphocytes/100 leukocytes in Blood by Automated count 35.8 % 25. 0-50.0 [facility] ([facility]) Ig% 0.3 % 0.0-0.2 Above high normal [facility] ([facility]) Baso % 0.3 % 0.0-2.0 [facility] ([facility]) Laboratory test finding (navigational concept) 5.4 K/mm3 2.0-8.00 [facility] ([facility]) Eos % 2.7 % 0-5.0 [facility] ([facility]) Lymph # 3.8 K/mm3 1.0-5.0 [facility] ([facility]) Miller # 1.1 K/mm3 0.10-1.20 [facility] ([facility]) Ig# 0.0 K/mm3 0.0-0.2 [facility] ([facility]) Baso # 0.0 K/mm3 0.0-0.2 [facility] ([facility]) Eos # 0.3 K/mm3 0.0-0.5 [facility] ([facility]) Mean Platelet Volume 10.2 fl 9.0-13.0 [facility] ([facility]) Laboratory test finding (navigational concept) 50.5 % 50-80.0 [facility] ([facility]) Laboratory test finding (navigational concept) 365 K/mm3 172-450 [facility] ([facility]) Mean Corpuscular HGB Conc 32.9 g/dL 32.0-36.0 [facility] ([facility]) Mean Corpuscular Hemoglobin 30.3 pg 27.0-31.0 [facility] ([facility]) Red Cell Distribution Width 14.0 % 10.0-14.5 [facility] ([facility]) Laboratory test finding (navigational concept) 92.2 fl 80-96 [facility] ([facility]) Hematocrit [Volume Fraction] of Blood by Automated count 51.1 % 36.0-48.8 Above high normal [facility] ([facility]) Red Blood Count 5.54 M/mm3 4.00-5.50 Above high normal [facility] ([facility]) Hemoglobin 16.8 gm/dL 12.0-16.0 Above high normal [facility] ([facility]) White Blood Count 10.7 K/mm3 4.0-10.0 Above high normal [facility] ([facility]) ID Date Data Source [id number] 12/01/2019 02:55:00 AM EDT [facility] ([facility]) Name Value Range Interpretation Code Description Data Elizabeth rce(s) Supporting Document(s) Laboratory test finding (navigational concept) Laboratory test result [facility] ([facility]) ID Date Data Source [id number] 12/07/2019 09:22:00 AM EDT [facility] Name Value Range Interpretation Code Description Data Elizabeth rce(s) Supporting Document(s) [facility] ID Date Data Source [id number] 12/01/2019 03:34:00 AM EDT [facility] [id number] Name Value Range Interpretation Code Description Data Elizabeth rce(s) Supporting Document(s) TSH 4.04 uIU/mL 0.36-3.74 H [facility] ID Date Data Source [id number] 12/01/2019 03:34:00 AM EDT [facility] [id number] Name Value Range Interpretation Code Description Data Elizabeth rce(s) Supporting Document(s) PARTIAL THROMBOPLASTIN TIME 25.8 SECONDS 21.4-30.2 [facility] ID Date Data Source [id number] 12/01/2019 03:34:00 AM EDT [facility] TSYSORDER [id number] Name Value Range Interpretation Code Description Data Elizabeth rce(s) Supporting Document(s) PROTHROMBIN TIME (PATIENT) 10.9 SECONDS 9.2-11.6 [facility] INR 1.05 0.87-1.06 [facility] ID Date Data Source [id number] 12/01/2019 03:34:00 AM EDT [facility] TSYSORDER [id number] Name Value Range Interpretation Code Description Data Elizabeth rce(s) Supporting Document(s) GLUCOSE 154 mg/dL 74-106 H [facility] BLOOD UREA NITROGEN 15 mg/dL 7-18 [facility] ital CREATININE 1.1 mg/dL 0.6-1.0 H [facility] SODIUM 134 mmol/L 136-145 L [facility] POTASSIUM 3.7 mmol/L 3.5-5.1 [facility] CHLORIDE 94 mmol/L 98-107 *L [facility] CO2 32 mmol/L 21-32 [facility] CALCIUM 9.5 mg/dL 8.5-10.1 [facility] ANION GAP 8.0 mmol/L 5-12 [facility] GLOMERULAR FILTRATION RATE 55 mL/min [facility] GFR IS CALCULATED IN mL/min/1.73m2 BRENDA L FUNCTION: >90MILDLY DECREASED: 60-89MILDY TO MODERATELY DECREASED: 45-59 MODERATELY TO SEVERELY DECREASED: 30-44SEVERELY DECREASED: 15-29RENAL FAILURE: <15 AST 29 U/L 15-37 [facility] ALT 42 U/L 12-78 [facility] ALKALINE PHOSPHATASE 125 U/L 46-116 H [facility] pital TOTAL BILIRUBIN 0.7 mg/dL 0.2-1.0 [facility] TOTAL PROTEIN 9.1 g/dl 6.4-8.2 *H [facility] ALBUMIN 4.8 gm/dL 3.4-5.0 [facility] ID Date Data Source [id number] 12/01/2019 03:34:00 AM EDT [facility] TSYSORDER [id number] Name Value Range Interpretation Code Description Data Elizabeth rce(s) Supporting Document(s) MAGNESIUM 2.0 mg/dL 1.8-2.4 [facility] ID Date Data Source [id number] 12/01/2019 03:26:[address] [facility] TSYSORDER [id number] Name Value Range Interpretation Code Description Data Elizabeth rce(s) Supporting Document(s) LACTIC ACID 0.9 mmol/L 0.4-2.0 [facility] ID Date Data Source [id number] 12/01/2019 03:24:00 AM EDT [facility] TSYSORDER [id number] Name Value Range Interpretation Code Description Data Elizabeth rce(s) Supporting Document(s) C REACTIVE PROTEIN 17.1 mg/L 0.0-3.0 H [facility] ID Date Data Source [id number] 12/01/2019 03:20:00 AM EDT [facility] TSYSORDER [id number] Name Value Range Interpretation Code Description Data Elizabeth rce(s) Supporting Document(s) URINE RBC 0-2 /hpf 0-3 [facility] URINE WBC 3-5 /hpf 0-5 [facility] URINE EPITHELIAL CELLS 2+ /hpf 0 [facility] URINE BACTERIA 2+ NONE SEEN [facility] URINE CULTURE ORDERED ID Date Data Source [id number] 12/01/2019 03:06:00 AM T [facility] ital TSYSORDER [id number] Name Value Range Interpretation Code Description Data Elizabeth rce(s) Supporting Document(s) URINE COLOR. DARK YELLOW [facility] URINE APPEARANCE CLOUDY [facility] SPECIFIC GRAVITY,URINE 1.020 1.001-1.035 [facility] URINE LEUKOCYTE ESTERASE TRACE NEGATIVE [facility] URINE NITRATE NEGATIVE NEGATIVE [facility] PH,URINE 5.5 5.0-9.0 [facility] URINE PROTEIN 1+(30) mg/dL NEGATIVE [facility] URINE GLUCOSE (UA) NEGATIVE mg/dL NEGATIVE [facility] URINE KETONE NEGATIVE mg/dL NEGATIVE [facility] URINE UROBILINOGEN NORMAL(0.2-1) mg/dL 0-1 R [facility] URINE BILIRUBIN NEGATIVE NEGATIVE [facility] URINE BLOOD NEGATIVE NEGATIVE [facility] ID Date Data Source [id number] 12/01/2019 03:18:00 AM EDT [facility] TSYSORDER [id number] Name Value Range Interpretation Code Description Data Elizabeth rce(s) Supporting Document(s) WHITE BLOOD COUNT 10.7 K/mm3 4.0-10.0 H [facility] RED BLOOD COUNT 5.54 M/mm3 4.00-5.50 H [facility] HEMOGLOBIN 16.8 gm/dL 12.0-16.0 H [facility] HEMATOCRIT 51.1 % 36.0-48.8 H [facility] MEAN CELL VOLUME 92.2 fl 80-96 [facility] MEAN CORPUSCULAR HEMOGLOBIN 30.3 pg 27.0-31.0 [facility] MEAN CORPUSCULAR HGB CONC 32.9 g/dl 32.0-36.0 [facility] RED CELL DISTRIBUTION WIDTH 14.0 % 10.0-14.5 [facility] PLATELET COUNT 365 K/mm3 172-450 [facility] MEAN PLATELET VOLUME 10.2 fl 9.0-13.0 [facility] pital GRAN % 50.5 % 50-80.0 [facility] IG% 0.3 % 0.0-0.2 H [facility] LYMPH % 35.8 % 25.0-50.0 [facility] MONO % 10.4 % 2.0-10.0 H [facility] EOS % 2.7 % 0-5.0 [facility] BASO % 0.3 % 0.0-2.0 [facility] GRAN # 5.4 K/mm3 2.0-8.00 [facility] IG# 0.0 K/mm3 0.0-0.2 [facility] LYMPH # 3.8 K/mm3 1.0-5.0 [facility] MONO # 1.1 K/mm3 0.10-1.20 [facility] EOS # 0.3 K/mm3 0.0-0.5 [facility] BASO # 0.0 K/mm3 0.0-0.2 [facility] ID Date Data Source [id number] 12/01/2019 02:55:00 AM EDT [facility] TSYSORDER [id number] Name Value Range Interpretation Code Description Data Elizabeth rce(s) Supporting Document(s) HCG URINE NEGATIVE NEGATIVE [facility] ID Date Data Source [id number] 11/22/2019 01:28:00 PM EDT [facility] ([facility]) Name Value Range Interpretation Code Description Data Elizabeth rce(s) Supporting Document(s) Troponin I Laboratory test result [facility]) <content>Troponin I Reference Interval f or Siemens [place] LOCI: </content>
<content> </content>
<content> 99th Percentile= 0.00-0.045 ng/ml </content>
<content> </content>
<content>Risk Stratification: </content>
<content> <= 0.10 ng/ml Decreased Risk for Adverse Clinical </content>
<content> Events. </content>
<content> 0.10-1.50 ng/ml Increased Risk for Adverse Clinical </content>
<content> Events. Evaluation of additional </content>
<content> criterion and/or repeat testing in 2-6 </content>
<content> hours is suggested to rule out myocardial </content>
<content> damage. </content>
<content> >= 1.50 ng/ml Indicative of Myocardial Injury.</content>
<content></content> ID Date Data Source [id number] 11/22/2019 01:28:00 PM EDT [facility] ([facility]) Name Value Range Interpretation Code Description Data Elizabeth rce(s) Supporting Document(s) Lipase Laboratory test result 73-393 Above high normal [facility] ([facility]) ID Date Data Source [id number] 11/22/2019 01:28:00 PM EDT [facility] ([facility]) Name Value Range Interpretation Code Description Data Elizabeth rce(s) Supporting Document(s) Thyroid Stimulating Hormone Laboratory test result 0.358-3.740 Above high normal [facility] ([facility]) ID Date Data Source [id number] 11/22/2019 01:28:00 PM EDT [facility] ([facility]) Name Value Range Interpretation Code Description Data Elizabeth rce(s) Supporting Document(s) Free T4 Laboratory test result 0.76-1.46 [facility] ([facility]) ID Date Data Source [id number] 11/22/2019 01:27:00 PM EDT [facility] ([facility]) Name Value Range Interpretation Code Description Data Elizabeth rce(s) Supporting Document(s) CK-MB Value Mass Laboratory test result [facility] ([facility]) CPK Creatine Phosphokinase Laboratory test result 26-192 [facility] ([facility]) MB/CK Relative Index 0.93 [facility] ([facility]) <content>DIAGNOSIS CRITERIA </content>< br/><content> MMB ng/ml Relative Index (RI) </content>
<content>NON-AMI < or = 5 N/A </content>
<content>WEI ZONE > 5 < or = 4 </content>
<content>AMI > 5 > 4</content>
<content></content> ID Date Data Source [id number] 11/22/2019 01:27:00 PM EDT [facility] ([facility]) Name Value Range Interpretation Code Description Data Elizabeth rce(s) Supporting Document(s) Albumin Laboratory test result 3.2-5.2 [facility] ([facility]) Albumin/Globulin Ratio 1.19 1.00-1.93 [facility] ([facility]) Bilirubin,Direct Laboratory test result 0.0-0.2 [facility] ([facility]) Total Protein Laboratory test result 6.4-8.2 [facility] ([facility]) Bilirubin,Total Laboratory test result 0.2-1.0 [facility] ([facility]) Alkaline phosphatase [Enzymatic activity/volume] in Se rum or Plasma Laboratory test result 45-117 [facility] Alanine aminotransferase [Enzymatic activity/volume] i n Serum or Plasma Laboratory test result 12-78 [facility] ([facility]) Testing was performed on a lipemic speci men. Suggest recollection of a FASTING specimen for more accurate test results. Aspartate aminotransferase [Enzymatic activity/volume] in Serum or Plasma Laboratory test result 7-37 [facility] ([facility]) ID Date Data Source [id number] 11/22/2019 12:49:00 PM EDT [facility] ([facility]) Name Value Range Interpretation Code Description Data Elizabeth rce(s) Supporting Document(s) Laboratory test finding (navigational concept) Laboratory test result [facility] ([facility]) ID Date Data Source [id number] 11/22/2019 12:22:00 PM EDT [facility] ([facility]) Name Value Range Interpretation Code Description Data Elizabeth rce(s) Supporting Document(s) Platelet Count, Automated Laboratory test result 150-450 [facility] ([facility]) Mean Corpuscular HGB Conc Laboratory test result 32.0-36.5 [facility] ([facility]) Red Cell Distribution Width Laboratory test result 11.5-14.5 [facility] ([facility]) Neutrophils % Laboratory test result 36.0-66.0 [facility] ([facility]) Miller % Laboratory test result 0.0-5.0 Above high normal [facility] ([facility]) Lymphocytes/100 leukocytes in Blood by Automated count Labor atory test result 24.0-44.0 [facility] ([facility]) Eos % Laboratory test result 0.0-3.0 Above high normal [facility] ([facility]) Baso % Laboratory test result 0.0-1.0 [facility] ([facility]) Nucleated Red Blood Cell % Laboratory test result 0-0 [facility] ([facility]) Immature Granulocyte % Laboratory test result 0-3.0 [facility] ([facility]) Neutrophils # Laboratory test result 1.5-8.5 [facility] ([facility]) Lymph # Laboratory test result 1.5-5.0 [facility] ([facility]) Eos # Laboratory test result 0.0-0.5 [facility] ([facility]) Miller # Laboratory test result 0.0-0.8 [facility] ([facility]) Baso # Laboratory test result 0.0-0.2 [facility] ([facility]) Mean Corpuscular Volume Laboratory test result 80.0-96.0 [facility] ([facility]) Mean Corpuscular Hemoglobin Laboratory test result 27.0-33.0 [facility] ([facility]) Hematocrit [Volume Fraction] of Blood by Automated count Lab oratory test result 36.0-47.0 [facility] ([facility]) Hemoglobin Laboratory test result 12.0-15.5 [facility] ([facility]) Red Blood Count Laboratory test result 4.00-5.40 [facility] ([facility]) White Blood Count Laboratory test result 4.0-10.0 [facility] ([facility]) ID Date Data Source [id number] 11/22/2019 12:17:00 PM EDT [facility] ([facility]) Name Value Range Interpretation Code Description Data Elizabeth rce(s) Supporting Document(s) Laboratory test finding (navigational concept) Laboratory test result [facility] ([facility]) <content>QUANTITATIVE RESULT QU ALITATIVE INTERPRETATION </content>
<content> </content>
<content> <5.0 IU/L NEGATIVE </content>
<content> 5.0 - 25.0 IU/L INDETERMINATE </content>
<content> >25.0 IU/L POSITIVE</content>
<content></content> ID Date Data Source [id number] 11/22/2019 12:10:00 PM EDT [facility] ([facility]) Name Value Range Interpretation Code Description Data Elizabeth rce(s) Supporting Document(s) Creatinine [Mass/volume] in Serum or Plasma Laboratory test result 0. 6-1.3 [facility] ([facility]) Laboratory test finding (navigational concept) Laboratory test r esult 23.0-27.0 Above high normal [facility] ([facility]) Urea nitrogen [Mass/volume] in Serum or Plasma Laboratory test result 8-26 [facility] ([facility]) Laboratory test finding (navigational concept) Laboratory test r esult 98-109 Below low normal [facility] ([facility]) Laboratory test finding (navigational concept) Laboratory test resu lt 4.5-5.3 [facility] ([facility]) Laboratory test finding (navigational concept) Laboratory test resu lt 3.5-5.1 [facility] ([facility]) Laboratory test finding (navigational concept) Laboratory test r esult 136-145 Below low normal [facility] ([facility]) Laboratory test finding (navigational concept) Laboratory test r esult 38.0-51.0 [facility] ([facility]) Laboratory test finding (navigational concept) Laboratory test r esult 70-105 Above high normal [facility] ([facility]) ID Date Data Source [id number] 11/19/2019 11:32:07 AM EDT [facility] Measurements & CalculationsHeight: 70.80 inches 179.83 cm 5 ft. 10.8 in.Weight: 267 pounds 3 oz. 121.45 kg Body Mass Index (BMI): 37.61BMI Interpretation: ObeseBody Surface Area (BSA): 2.38Weight Management Education Done (Nutrition/Physical Activity)Vital SignsTemperature: 98.3F tympanic Pulse Rate: 73 beats/minuteRespiratory Rate: 22 respirations/minuteBlood Pressure: 142/87 left arm sitting automaticO2 Saturation: 92% room airVital Signs performed by: Martin Woods MA, November 19, 2019 11:51 AMInitial Intake Information From: patientRoom #: 1Infectious Disease / Travel ScreeningRecent travel for you or any close contacts? NoHave you had any close contact with anyone diagnosed with or under investigation for COVID-19 (coronavirus)? NoFever? NoRespiratory symptoms: cough, cold, congestion, shortness of breath, difficulty breathing? NoLoss of smell? NoLoss of taste? NoSmoking, Tobacco, Vaping or Smoke Exposure StatusSmoke Status: current every day smokerTobacco Use: YesDo you vape? NoPassive Smoke Exposure: YesMenstrual HistoryAny possibility of ? NoComments: total hysterectomy Healthcare HistorySince your last office visit...Have you been admitted to the hospital? NoHave you been to an emergency room (ER) or urgent care clinic? Yes - [facility] Emergency room (ER) or urgent care date reported today: 11/17/2019Have you seen another healthcare provider? Yes - pipe liner, ENT Have you seen a dentist? NoIntake performed by: Martin Woods MA, November 19, 2019 11:34 AMRate Your HealthIn general, would you say your health is? PoorPain AssessmentAre you currently having any pain which... You would like your provider to address? Yes Affects your activity level? YesDepression Screening - PHQ-2Over the last two weeks, have you... Had little interest or pleasure in doing things? More than half the days Been feeling down, depressed, or hopeless? More than half the days PHQ-2 Score: 4Anxiety Screening - CASEY-2Over the last two weeks, have you been... Feeling nervous, anxious, or on edge? Nearly every day Unable to stop or control worrying? Nearly every day CASEY-2 Score: 6Food InsecurityWithin the past year...Did you worry whether your food would run out before you got money to buy more? NoWas there a time when the food you bought didn't last and you didn't have money to get more? NoGeneralized Anxiety Disorder 7-Item Screening (CASEY-7)Answer Guide:0 = Not at all1 = Several days2 = Over half the days3 = Nearly every dayOver the last 2 weeks, how often have you been bothered by the following problems?Feeling nervous, anxious, or on edge: 3Not being able to stop or control worryinWorrying too much about different things: 3Trouble relaxinBeing so restless that it's hard to sit still: 3Becoming easily annoyed or irritable: 3Feeling afraid as if something awful might happen: 3Answer Guide:0 = Not difficult at all1 = Somewhat difficult2 = Very difficult3 = Extremely difficultHow difficult have these made it for you to do your work, take care of things at home, or get along with other people? 2GAD-7 Screening Results CASEY-2 Score: 6GAD-7 Score: 21Functional Impairment: Very difficultRecommendation: Severe anxietyPHQ-9 1. Over the last 2 weeks, patient reports the following frequency of symptoms: a. Little interest or pleasure in doing things -More than half the days b. Feeling down, depressed, or hopeless - More than half the days c. Trouble falling asleep, staying asleep, or sleeping too much -Nearly every day d. Feeling tired or having little energy -Nearly every day e. Poor appetite or overeating -Nearly every day f. Feeling bad about yourself, feeling that you are a failure, or feeling that you have let yourself or your family down -Nearly every day g. Trouble concentrating on things such as reading the newspaper or watching television -Several days h. Moving or speaking so slowly that other people could have noticed. Or being so fidgety or restless that you have been moving around a lot more than usual -Several days i. Thinking that you would be better off or that you want to hurt yourself in some way -Not at all2. If you checked off any problems, how difficult have these problems made it for you to do your work, take care of things at home, or get along with other people? -Very DifficultToday's PHQ-9 Results Score: 18 Severity: Moderately Severe Diagnosis Recommendation: Major Depression Functional Impairment: Very DifficultPain AssessmentPain ScaleNumeric Rating Scale: 10 / 10Location: jaw/ neck Duration: months Frequency: DailyCharacter/Quality: aching, sharp, stabbing and throbbingIs the pain radiating? NoScreening, Brief Intervention, & Referral to Treatment (SBIRT)Pre-Screening Questions How many times have you have 4 or more drinks in a day? 0How many times have you used an illegal drug or used a prescription medication for a non-medical reason? 0Performed by: Martin Woods MA, November 19, 2019 11:42 AMPatient History Medical History:Anxiety DisorderDepressionDiabetes, Type 2G E R DThyroid DisorderTotal Abdominal HysterectomyHyperlipidemiaSurgical History:Cholecystectomy-1998Total Abdominal Pvgwuxfpgfmu-[id number]-3895zbppunfpyam-2002teeth removed s73Kfezpg History:Family History of ArthritisFH of AnxietyFamily History of AsthmaFH DepressionFH DiabetesFH Heart DiseaseFH High CholesterolFH Lung/Respiratory DiseaseFH Other CancerFamily History Coronary Heart Disease male < 55FH HeadachesFH Lung CancerFH Psychiatric CareSocial/Personal History:Mother passed recently (06-02-2014)Smoking History:Patient has never smoked. Chief Complaintjaw/ neck pain RM 1History of Present Illness (HPI)39 yr old female here today with complaints of jaw/ and neck pain. Pt states she has been seen mutliple times in the ER and nothing is being done for her pain. I reviewed her ENT notes, Rxed for stomatitis. Her pain radiates from her neck to the top of her head, and from her right upper back to her right chest. Pain worse with movement, and has been getting worse over 8 months. She also wanted to be restarted on Effexor, helped her in the past, last had it 2008.Transitions of Care InboundProblem ReviewProblem List was reviewed and/or updated during this visit.Medication Reconciliation & ReviewMedication List was reviewed and/or updated during this visit, including review of any spaj-yqr-yemqbnd medications, herbal therapies, and/or supplements.Allergy ReviewAllergy List was reviewed and/or updated during this visit.Adult Preventive CareProvider Calculated and Reviewed all Clinical Protocols for patient today. Labs/Meds/Other Counseling- Nutrition and Physical Activity:BMI Interpretation: Obese (11/19/2019) Counseling: Done (11/19/2019) Physical Activity: Done (11/19/2019)Review of Systems General: Complains of fatigue, headache, feeling ill. Ears/Nose/Throat: Denies earache, ear discharge, ringing in ears, decreased hearing, nasal congestion, nosebleeds, runny nose, sore throat, hoarseness, difficulty swallowing, dry mouth, tooth pain, bleeding gums, swollen glands. Cardiovascular: Complains of chest pain. Denies palpitations, feeling faint, trouble breathing w/exertion, SOB upon lying down, SOB at night, peripheral edema, elevated blood pressure, decreased heart rate. Respiratory: Denies cough, difficulty breathing, shortness of breath, excessive sputum, coughing up blood, wheezing, chest pain. Musculoskeletal: Complains of back pain, body aches, muscle aches. Physical ExamGeneral Appearance: well nourished, well hydrated, in moderate distressRespiratory, Auscultation: clear to auscultation bilaterally; no rales, rhonchi, or wheezesRespiratory, Effort: no intercostal retractions or use of accessory musclesCardiovascular, Auscultation: S1, S2 audible; no murmur, rub, or gallop; RRRGait & Station: normalHead & Neck: spasm C2-4 on leftBack: 1st rib on right, T3-6 on rightOrientation: oriented to time, place, and personMood & Affect: no depression, anxiety, or agitationJudgment & Insight: intactCare Management Plan Transitions of CareInboundRate Your HealthIn general, would you say your health is? PoorAssessment & Plan Problems:Added: R ight thoracic outlet syndrome (AWG78-M42.0)Assessed:Chronic tension-type headache, intractable (ICD-339.12) (IHE53-S44.221) Assessment: OMT done w/reliefChest pain (ICD-786.50) (AQO05-Y02.9) Assessment: OMT done w/reliefAssessment not SavedRight thoracic outlet syndrome (RMO47-H45.0): OMT done w/reliefMedications:VENLAFAXINE HCL 75 MG ORAL TABLETCYCLOBENZAPRINE HCL 10 MG ORAL TABLETNICODERM CQ 14 MG/24HR TRANSDERMAL PATCH 24 HOURNYSTATIN 800000 UNIT/ML MOUTH/THROAT SUSPENSIONLISINOPRIL 20 MG ORAL TABLETNEBULIZER/TUBING/MOUTHPIECE KITBUSPIRONE HCL 10 MG ORAL TABLETLABETALOL HCL 100 MG ORAL TABLETMOTORIZED SCOOTERONETOUCH ULTRASOFT LANCETSONETOUCH ULTRA 2 W/DEVICE KITONETOUCH ULTRA BLUE IN VITRO STRIPHYDROXYZINE HCL 10 MG ORAL TABLETOMEPRAZOLE 40 MG ORAL CAPSULE DELAYED RELEASEFLONASE 50 MCG/ACT NASAL SUSPENSIONGABAPENTIN 600 MG ORAL TABLETGLYBURIDE 5 MG ORAL TABLETSYNTHROID 25 MCG ORAL TABLETMELOXICAM 15 MG ORAL TABLETLEVOTHYROXINE SODIUM 200 MCG ORAL TABLETMETFORMIN HCL 1000 MG ORAL TABLETALCOHOL WIPES PADAEROCHAMBER MVMedication Changes:New Prescription:CYCLOBENZAPRINE HCL 10 MG ORAL TABLET-one tab po TID prn muscle spasm Qty: 30[Tablet] Refills: 1 Method: ElectronicVENLAFAXINE HCL 75 MG ORAL TABLET-one tab po BID Qty: 60[Tablet] Refills: 1 Method: ElectronicRemoved:CYMBALTA 60 MG ORAL CAPSULE DELAYED RELEASE PARTICLES-take one tab po daily Qty: 30[Capsule] Refills: 1Allergies:* QUINOLONES (Critical)SULFA (Moderate)* AVELOX (Moderate)Orders:Adult - Ofc Vst, EST, Level IV [CPT-03817] Medications:VENLAFAXINE HCL 75 MG ORAL TABLET (VENLAFAXINE HCL) one tab po BID #60[Tablet] x 1 Route:ORAL Entered and Authorized by: Jai Mccarty DO Method used: Electronically to [facility] (retail) [address] [place] [address] Note to Pharmacy: Route: ORAL; RxID: [id number] HCL 10 MG ORAL TABLET (CYCLOBENZAPRINE HCL) one tab po TID prn muscle spasm #30[Tablet] x 1 Route:ORAL Entered and Authorized by: Jai Mccarty DO Method used: Electronically to [facility] (retail) [address] [place] [address] Note to Pharmacy: Route: ORAL; RxID: [id number] CYMBALTA 60 MG ORAL CAPSULE DELAYED RELEASE PARTICLES (DULOXETINE HCL) take one tab po daily #30[Capsule] x 1 Route:ORAL Entered and Authorized by: Jai Mccarty DO Method used: Electronically to [facility] (retail) [address] [place] [address] Fax: RxID: [id number] signed by Jai Mccarty DO on 11/19/2019 at 12:34 PM_ Name Value Range Interpretation Code Description Data Elizabeth rce(s) Supporting Document(s) ID Date Data Source [id number] 11/18/2019 01:43:00 PM EDT [facility] ([facility]) Name Value Range Interpretation Code Description Data Elizabeth rce(s) Supporting Document(s) Laboratory test finding (navigational concept) Laboratory test result [facility] ([facility]) A false negative result may occur if a specimen is improperly collected, transported or handled. False negative results may also occur if inadequate numbers of organisms are present in the specimen. As with any molecular test, mutations within the target regions of Xpert Xpress SARS-CoV-2 could affect primer and/or probe binding resulting in failure to detect the presence of virus. This test cannot rule out diseases caused by other bacterial or viral pathogens. DISCLAIMER: Testing was performed using the [employer] SARS-CoV-2 test. This test was developed and its performance characteristics determined by [employer]. This test has not been FDA cleared or approved. This test has been authorized by FDA under an Emergency Use Authorization (EUA). This test is only authorized for the duration of time the declaration that circumstances exist justifying the authorization of the emergency use of in vitro diagnostic tests for detection of SARS-CoV-2 virus and/or diagnosis of COVID-19 infection under section 564(b)(1) of the Act, 21 U.S.C. 360bbb-3(b)(1), unless the authorization is terminated or revoked sooner. ID Date Data Source [id number] 11/18/2019 12:35:00 AM EDT [facility] ([facility]) Name Value Range Interpretation Code Description Data Elizabeth rce(s) Supporting Document(s) Laboratory test finding (navigational concept) Laboratory test result 0-20 [facility] ([facility]) ID Date Data Source [id number] 11/18/2019 12:24:00 AM EDT [facility] ([facility]) Name Value Range Interpretation Code Description Data Elizabeth rce(s) Supporting Document(s) Laboratory test finding (navigational concept) Laboratory test r esult 0.00-0.30 Above high normal [facility] ([facility]) ID Date Data Source [id number] 11/17/2019 11:02:00 PM EDT [facility] ([facility]) Name Value Range Interpretation Code Description Data Elizabeth rce(s) Supporting Document(s) Calcium Level Laboratory test result 8.5-10.1 Below low normal [facility] ([facility]) Anion Gap Laboratory test result 8-16 [facility] ([facility]) Carbon Dioxide Level Laboratory test result 21-32 [facility] ([facility]) Chloride Level Laboratory test result 98-107 [facility] ([facility]) Potassium Serum Laboratory test result 3.5-5.1 [facility] ([facility]) Glomerular Filtration Rate Laboratory test result [facility] ([facility]) <content>Units are mL/min/1.73 m2 </con tent>
<content> </content>
<content>Chronic Kidney Disease Staging per NKF: </content>
<content> </content>
<content>Stage I & II GFR >=60 Normal to Mildly Decreased </content>
<content>Stage III GFR 30-59 Moderately Decreased </content>
<content>Stage IV GFR 15-29 Severely Decreased </content>
<content>Stage V GFR <15 Very Little GFR Left </content>
<content>ESRD GFR <15 on MARINE GEAR KEEPER</content>
<content></content> Sodium Level Laboratory test result 136-145 [facility] ([facility]) Creatinine For GFR Laboratory test result 0.55-1.30 [facility] ([facility]) Glucose, Fasting Laboratory test result 70-100 Above high normal [facility] ([facility]) Blood Urea Nitrogen Laboratory test result 7-18 [facility] ([facility]) ID Date Data Source [id number] 11/17/2019 11:02:00 PM EDT [facility] ([facility]) Name Value Range Interpretation Code Description Data Elizabeth rce(s) Supporting Document(s) Albumin/Globulin Ratio 1.27 1.00-1.93 [facility] ([facility]) Albumin Laboratory test result 3.2-5.2 [facility] ([facility]) Total Protein Laboratory test result 6.4-8.2 [facility] ([facility]) Bilirubin,Direct Laboratory test result 0.0-0.2 [facility] ([facility]) Alkaline phosphatase [Enzymatic activity/volume] in Se rum or Plasma Laboratory test result 45-117 [facility] ([facility]) Alanine aminotransferase [Enzymatic activity/volume] i n Serum or Plasma Laboratory test result 12-78 [facility] ([facility]) Bilirubin,Total Laboratory test result 0.2-1.0 [facility] ([facility]) Aspartate aminotransferase [Enzymatic activity/volume] in Serum or Plasma Laboratory test result 7-37 [facility] ([facility]) ID Date Data Source [id number] 11/17/2019 10:37:00 PM EDT [facility] ([facility]) Name Value Range Interpretation Code Description Data Elizabeth rce(s) Supporting Document(s) White Blood Count Laboratory test result 4.0-10.0 [facility] ([facility]) Red Blood Count Laboratory test result 4.00-5.40 [facility] ([facility]) Hemoglobin Laboratory test result 12.0-15.5 [facility] ([facility]) Hematocrit [Volume Fraction] of Blood by Automated count Lab oratory test result 36.0-47.0 [facility] ([facility]) Mean Corpuscular Volume Laboratory test result 80.0-96.0 [facility] ([facility]) Mean Corpuscular Hemoglobin Laboratory test result 27.0-33.0 [facility] ([facility]) Mean Corpuscular HGB Conc Laboratory test result 32.0-36.5 [facility] ([facility]) Red Cell Distribution Width Laboratory test result 11.5-14.5 [facility] ([facility]) Nucleated Red Blood Cell % Laboratory test result 0-0 [facility] ([facility]) Platelet Count, Automated Laboratory test result 150-450 [facility] ([facility]) ID Date Data Source [id number] 11/17/2019 10:21:00 PM EDT [facility] ([facility]) Name Value Range Interpretation Code Description Data Elizabeth rce(s) Supporting Document(s) Laboratory test finding (navigational concept) Laboratory test result [facility] ([facility]) This lab was ordered by [facility] a nd reported by [facility]. ID Date Data Source [id number] 11/12/2019 10:20:00 AM EDT [facility] Name Value Range Interpretation Code Description Data Elizabeth rce(s) Supporting Document(s) BG FASTING 180 mg/dL 70-100 H [facility] T3, TOTAL < 10.0 NG/DL ng/dL 60.0-181.0 L [facility] T4, FREE 0.78 ng/dL 0.76-1.46 N [facility] TSH 66.200 microintl units/mL 0.358-3.740 [facility] TOT 6.0 ng/mL 30.0-100.0 L [facility] ID Date Data Source [id number] 11/12/2019 10:20:00 AM EDT [facility] Name Value Range Interpretation Code Description Data Elizabeth rce(s) Supporting Document(s) HCT 53.6 % 36.0-47.0 H [facility] HGB 18.3 g/dL 12.0-15.5 H [facility] MCH 34.1 G/DL pg 32.0-36.5 N [facility] MCHC 30.8 PG % 27.0-33.0 N [facility] PLATELETS 384 10 10*3/mm3 150-450 N [facility] RBC 5.94 10 10*6/mm3 4.00-5.40 H [facility] RDW 14.0 % 11.5-14.5 N [facility] WBC TOTAL 15.6 4.0-10.0 H [facility] ID Date Data Source [id number] 11/12/2019 10:20:00 AM EDT [facility] Name Value Range Interpretation Code Description Data Elizabeth rce(s) Supporting Document(s) HGBA1C 8.3 % N [facility] ID Date Data Source [id number] 11/12/2019 09:07:15 AM EDT [facility] Measurements & CalculationsHeight: 70.80 inches 179.83 cm 5 ft. 10.8 in.Weight Management Education Done (Nutrition/Physical Activity)Vital SignsTemperature: 97.8F tympanic Pulse Rate: 75 beats/minuteRespiratory Rate: 20 respirations/minuteBlood Pressure: 134/93 right arm sitting automaticInitial Intake Information from: ptRoom #: 14Smoking, Tobacco, Vaping or Smoke Exposure StatusSmoke Status: current every day smokerTobacco Use: YesDo you vape? NoPassive Smoke Exposure: YesMenstrual HistoryComments: full hyesterectomyHealthcare HistorySince your last office visit...Have you been admitted to the hospital? NoHave you been to an emergency room (ER) or urgent care clinic? Yes - [facility] care date reported today: 11/10/2019Have you seen another healthcare provider? NoHave you seen a dentist? NoIntake performed by: Russell Can MA, November 12, 2019 9:11 AMRate Your HealthIn general, would you say your health is? GoodPain AssessmentAre you currently having any pain which... You would like your provider to address? No Affects your activity level? NoDepression Screening - PHQ-2Over the last two weeks, have you... Had little interest or pleasure in doing things? Nearly every day Been feeling down, depressed, or hopeless? Nearly every day PHQ-2 Score: 6Anxiety Screening - CASEY-2Over the last two weeks, have you been... Feeling nervous, anxious, or on edge? Nearly every day Unable to stop or control worrying? Nearly every day CASEY-2 Score: 6Infectious Disease / Travel ScreeningRecent travel for you or any close contacts? NoHave you had any close contact with anyone diagnosed with or under investigation for COVID-19 (coronavirus)? NoHave you had any of the following symptoms recently? Fever? NoRespiratory symptoms: cough, cold, congestion, shortness of breath, difficulty breathing? NoGeneralized Anxiety Disorder 7-Item Screening (CASEY-7)Answer Guide:0 = Not at all1 = Several days2 = Over half the days3 = Nearly every dayOver the last 2 weeks, how often have you been bothered by the following problems?Feeling nervous, anxious, or on edge: 3Not being able to stop or control worryinWorrying too much about different things: 3Trouble relaxinBeing so restless that it's hard to sit still: 3Becoming easily annoyed or irritable: 3Feeling afraid as if something awful might happen: 3Answer Guide:0 = Not difficult at all1 = Somewhat difficult2 = Very difficult3 = Extremely difficultHow difficult have these made it for you to do your work, take care of things at home, or get along with other people? 3GAD-7 Screening Results CASEY-2 Score: 6GAD-7 Score: 21Functional Impairment: Extremely difficultRecommendation: Severe anxietyPHQ-9 1. Over the last 2 weeks, patient reports the following frequency of symptoms: a. Little interest or pleasure in doing things -Nearly every day b. Feeling down, depressed, or hopeless -Nearly every day c. Trouble falling asleep, staying asleep, or sleeping too much -Nearly every day d. Feeling tired or having little energy -Nearly every day e. Poor appetite or overeating -Several days f. Feeling bad about yourself, feeling that you are a failure, or feeling that you have let yourself or your family down -Nearly every day g. Trouble concentrating on things such as reading the newspaper or watching television -Nearly every day h. Moving or speaking so slowly that other people could have noticed. Or being so fidgety or restless that you have been moving around a lot more than usual -Nearly every day2. If you checked off any problems, how difficult have these problems made it for you to do your work, take care of things at home, or get along with other people? - Extremely DifficultPain AssessmentLocation: chest painScreening, Brief Intervention, & Referral to Treatment (SBIRT)Pre-Screening Questions How many times have you have 4 or more drinks in a day? 0How many times have you used an illegal drug or used a prescription medication for a non-medical reason? 0Performed by: Russell Can MA, November 12, 2019 9:15 AMPatient History Medical History:Anxiety DisorderDepressionDiabetes, Type 2G E R DThyroid DisorderTotal Abdominal HysterectomyHyperlipidemiaSurgical History:Cholecystectomy-1998Total Abdominal Dqlmuwmbruew-[id number]-4586icvvqdidswa-2002teeth removed e99Nmcizb History:Family History of ArthritisFH of AnxietyFamily History of AsthmaFH Depre ssionFH DiabetesFH Heart DiseaseFH High CholesterolFH Lung/Respiratory DiseaseFH Other CancerFamily History Coronary Heart Disease male < 55FH HeadachesFH Lung CancerFH Psychiatric CareSocial/Personal History:Mother passed recently (06-02-2014)Smoking History:Patient has never smoked. Chief Complaintpt medicationHistory of Present Illness (HPI)pt's depression medications has to be raised. pt's main concern is stress. pt has literally picked a hole in her stoma because she is so stressed/ pt states that it is bleeding constantly. [facility] and pt ended up moving because of stress level. what she was told that she has a blocked artery somehwere she is getting light headed all the time. she was told to go back to the hospital and and thy keep having her leave. she was out on 3 antibitoics for her stoma and it is still not cleared up it is still draining. pt's blood pressure has been spiking constantly.hbc DO did manipulate pt's back to relieve pt's chest pain. DO manipulated pt's neck to relieve pain. Transitions of Care InboundProblem ReviewProblem List was reviewed and/or updated during this visit.Medication Reconciliation & ReviewMedication List was reviewed and/or updated during this visit, including review of any luzk-cfw-fcyefvw medications, herbal therapies, and/or supplements.Allergy ReviewAllergy List was reviewed and/or updated during this visit.Adult Preventive CareLabs/Meds/Other Counseling-Nutrition and Physical Activity:BMI Interpretation: Obese (12/25/2018) Counseling: Done (11/12/2019) Physical Activity: Done (11/12/2019)Care Management Plan Transitions of CareInboundRate Your HealthIn general, would you say your health is? 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) (ICD10- L40.0)Chronic tension-type headache, intractable (ICD-339.12) (ICD10- G44.221)Stomatitis (ICD-528.00) (JYX87-Q70.1) Assessment: refer to pulmChest pain (ICD-786.50) (BPV33-I44.9) Assessment: OMT doneAssessment not SavedOcclusion and stenosis of bilateral carotid arteries (XCW81-F98.23): Medications:NICODERM CQ 14 MG/24HR TRANSDERMAL PATCH 24 HOURNYSTATIN 489757 UNIT/ML MOUTH/THROAT SUSPENSIONLISINOPRIL 20 MG ORAL TABLETNEBULIZER/TUBING/MOUT HPIECE KITBUSPIRONE HCL 10 MG ORAL TABLETLABETALOL HCL 100 MG ORAL TABLETCYMBALTA 60 MG ORAL CAPSULE DELAYED RELEASE PARTICLESMOTORIZED SCOOTERONETOUCH ULTRASOFT LANCETSONETOUCH ULTRA 2 W/DEVICE KITONETOUCH ULTRA BLUE IN VITRO STRIPHYDROXYZINE HCL 10 MG ORAL TABLETOMEPRAZOLE 40 MG ORAL CAPSULE DELAYED RELEASEFLONASE 50 MCG/ACT NASAL SUSPENSIONGABAPENTIN 600 MG ORAL TABLETGLYBURIDE 5 MG ORAL TABLETSYNTHROID 25 MCG ORAL TABLETMELOXICAM 15 MG ORAL TABLETLEVOTHYROXINE SODIUM 200 MCG ORAL TABLETMETFORMIN HCL 1000 MG ORAL TABLETALCOHOL WIPES PADAEROCHAMBER MVMedication Changes:Refilled:NEBULIZER/TUBING/MOUTHPIECE KIT-UAD. Qty: 1[Kit] Refills: 0 Method: ElectronicBUSPIRONE HCL 10 MG ORAL TABLET-One po q12h prn anxiety. MDD 2. Qty: 60[Tablet] Refills: 1 Method: ElectronicCYMBALTA 60 MG ORAL CAPSULE DELAYED RELEASE PARTICLES-take one tab po daily Qty: 30[Capsule] Refills: 1 Method: ElectronicHYDROXYZINE HCL 10 MG ORAL TABLET-One po q8h prn anxiety. MDD 3. Qty: 30[Tablet] Refills: 0 Method: ElectronicOMEPRAZOLE 40 MG ORAL CAPSULE DELAYED RELEASE-One tablet by mouth every day Qty: 30[Capsule] Refills: 5 Method: ElectronicFLONASE 50 MCG/ACT NASAL SUSPENSION-one spray in each nostril daily Qty: 0 Refills: 0 Method: Print then Give to PatientGABAPENTIN 600 MG ORAL TABLET-take 2 tab po tid Qty: 120[Tablet] Refills: 5 Method: ElectronicGLYBURIDE 5 MG ORAL TABLET-take one tab po daily with food Qty: 30[Tablet] Refills: 5 Method: ElectronicMELOXICAM 15 MG ORAL TABLET-take one tab po daily Qty: 30[Tablet] Refills: 3 Method: ElectronicLEVOTHYROXINE SODIUM 200 MCG ORAL TABLET-take one tab po daily on an empty stomach Qty: 30[Tablet] Refills: 5 Method: ElectronicAllergies:* QUINOLONES (Critical)SULFA (Moderate)* AVELOX (Moderate)Orders:Adult - Ofc Vst, EST, Level IV [CPT-72054] COMP METABOLIC PANEL [CPT-51075] CBC W/DIFF [CPT-63879] HgBA1c [CPT-20100] TSH [CPT-08388] T-4 free [CPT-15123] Vitamin D 250H Unspecified [CPT-16915] T3 Total [CPT-96862] Thyroid Peroxidase Antibody [CPT_86376] Thyroglobulin antibody [CPT-94574] 69590 - Venipuncture [CPT-38585] Medications:LEVOTHYROXINE SODIUM 200 MCG ORAL TABLET (LEVOTHYROXINE SODIUM) take one tab po daily on an empty stomach #30[Tablet] x 5 Route:ORAL Entered and Authorized by: Jai Mccarty DO Method used: Electronically to [facility] (retail) [address] [place] [address] Note to Pharmacy: Route: ORAL; RxID: [id number] 15 MG ORAL TABLET (MELOXICAM) take one tab po daily #30[Tablet] x 3 Route:ORAL Entered and Authorized by: Jai Mccarty DO Method used: Electronically to [facility] (retail) [address] [place] [address] Note to Pharmacy: Route: ORAL; RxID: [id number] 5 MG ORAL TABLET (GLYBURIDE) take one tab po daily with food #30[Tablet] x 5 Route:ORAL Entered and Authorized by: Jai Mccarty DO Method used: Electronically to [facility] ([facility]) [address] [place] [address] Note to Pharmacy: Route: ORAL; RxID: [id number] 600 MG ORAL TABLET (GABAPENTIN) take 2 tab po tid #120[Tablet] x 5 Route:ORAL Entered and Authorized by: Jai Mccarty DO Method used: Electronically to [facility] ([facility]) [address] [place] [address] Note to Pharmacy: Route: ORAL; RxID: [id number] 50 MCG/ACT NASAL SUSPENSION (FLUTICASONE PROPIONATE) one spray in each nostril daily #0 x 0 Route:NASAL Entered and Authorized by: Jai Mccarty DO Method used: Print then Give to Patient Note to Pharmacy: Route: NASAL; RxID: [id number] 40 MG ORAL CAPSULE DELAYED RELEASE (OMEPRAZOLE) One tablet by mouth every day #30[Capsule] x 5 Route:ORAL Entered and Authorized by: Jai Mccarty DO Method used: Electronically to [facility] ([facility]ail) [address] [place] [address] Note to Pharmacy: Route: ORAL; RxID: [id number] 10 MG ORAL TABLET (HYDROXYZINE HCL) One po q8h prn anxiety. MDD 3. #30[Tablet] x 0 Route:ORAL Entered and Authorized by: Jai Mccarty DO Method used: Electronically to [facility] ([facility]ail) [address] [place] [address] Fax: Note to Pharmacy: Route: ORAL; RxID: [id number] 60 MG ORAL CAPSULE DELAYED RELEASE PARTICLES (DULOXETINE HCL) take one tab po daily #30[Capsule] x 1 Route:ORAL Entered and Authorized by: Jai Mccarty DO Method used: Electronically to [facility] ([facility]) [address] [place] [address] Note to Pharmacy: Route: ORAL; RxID: [id number] [id number] 10 MG ORAL TABLET (BUSPIRONE HCL) One po q12h prn anxiety. MDD 2. #60[Tablet] x 1 Route:ORAL Entered and Authorized by: Jai Mccarty DO Method used: Electronically to [facility] ([facility]) [address] [place] [address] Note to Pharmacy: Route: ORAL; RxID: [id number]/TUBING/MOUTHPIECE KIT (RESPIRATORY THERAPY SUPPLIES) UAD. #1[Kit] x 0 Entered and Authorized by: Jai Mccarty DO Method used: Electronically to [facility] ([facility]) [address] [place] [address] RxID: [id number] In-House Blood TestsDate/Time Collected: November 12, 2019 10:26 AMTest Result Reference Range Normal ValueComments: blood draw done in office, taken from right ac, tolerated well.Adriana Carcamo, November 12, 2019 10:26 AM Name Value Range Interpretation Code Description Data Elizabeth rce(s) Supporting Document(s) Procedure Vital Signs ID Date Data Source UNK Name Value Range Interpretation Code Description Data Source(s) Body surface area Derived from formula 2.41 m2 2.41 m2 [facility]) Body mass index (BMI) [Ratio] 38.4 kg/m2 38.4 k g/m2 [facility] ([facility]) Body height 71 [in_i] 71 [in_i] [facility] ([facility]) 5'11" Body weight 124.740 kg 124.740 kg [facility] ([facility]) Body weight 275.00 [lb_av] 275.00 [lb_av] [facility] ([facility]) Oxygen saturation in Arterial blood by Pulse oximetry 90 % 90 % [facility] ([facility]) Respiratory rate 18 /min 18 /min [facility] ( [facility]) Body temperature 98.1 [degF] 98.1 [degF] [facility] ([facility]) Heart rate 80 /min 80 /min [facility] ([facility]) Diastolic blood pressure 72 mm[Hg] 72 mm[Hg] [facility] ([facility]) Systolic blood pressure 130 mm[Hg] 130 mm[Hg] [facility] ([facility]) Body height 71 [in_i] 71 [in_i] [facility] ([facility]) Oxygen saturation in Arterial blood by Pulse oximetry 96 % 96 % [facility] Heart rate 82 /min 82 /min [facility] Diastolic blood pressure 78 mm[Hg] 78 mm[Hg] [facility] ([facility]) Systolic blood pressure 122 mm[Hg] 122 mm[Hg] [facility] ([facility]) Body height 71 [in_i] 71 [in_i] [facility] ([facility], ) 5'11" Oxygen saturation in Arterial blood by Pulse oximetry 96 % 96 % [facility] ([facility], ) Heart rate 82 /min 82 /min [facility] ([facility], ) Diastolic blood pressure 78 mm[Hg] 78 mm[Hg] [facility] ([facility], ) Systolic blood pressure 122 mm[Hg] 122 mm[Hg] [facility] ([facility], ) Body weight 122.472 kg 122.472 kg [facility] ([facility], ) Body mass index (BMI) [Ratio] 37.7 kg/m2 37.7 k g/m2 [facility] ([facility], ) Body weight 270.00 [lb_av] 270.00 [lb_av] [facility] ([facility], ) Body height 71 [in_i] 71 [in_i] [facility] 5'11" ID Date Data Source [id number] 06/29/2020 10:24:00 AM EST [facility] Name Value Range Interpretation Code Description Data Source(s) Weight Measurement Method 8 8 [facility] Weight 4400 4400 [facility] pital Temperature Source 7 7 [facility] Temperature 97.1 97.1 [facility] Respiratory Effort 1 1 [facility] Respiratory Rate [address] [facility] Pulse Assessment Method 4 4 [facility] Pulse Rate 86 86 [facility]ital Height 71 71 [facility] 111/78 111/78 [facility] ID Date Data Source [id number] 02/26/2020 06:00:00 AM EDT [facility] Name Value Range Interpretation Code Description Data Source(s) Weight 24605 36421 [facility] pital Temperature Source 7 7 [facility] Temperature 97.1 97.1 [facility] Respiratory Effort 1 1 [facility] Respiratory Rate [address] [facility] Pulse Assessment Method 4 4 [facility] Pulse Rate 78 78 [facility] 126/92 126/92 [facility] Weight 55738 10254 [facility] pital Temperature Source 7 7 [facility] Temperature 97.1 97.1 [facility] Respiratory Effort 1 1 [facility] Respiratory Rate [address] [facility] Pulse Assessment Method 4 4 [facility] Pulse Rate 78 78 [facility] 126/92 126/92 [facility] Weight 25996 40015 [facility] pital Temperature Source 7 7 [facility] Temperature 97.1 97.1 [facility] Respiratory Effort 1 1 [facility] Respiratory Rate 18 18 [facility] Pulse Assessment Method 4 4 [facility] Pulse Rate 90 90 [facility] pital Blood Pressure 175/114 175/114 [facility] Weight 27111 07681 [facility] pital Temperature Source 7 7 [facility] Temperature 97.1 97.1 [facility] Respiratory Effort 1 1 [facility] Respiratory Rate [address] [facility] Pulse Assessment Method 4 4 [facility] Pulse Rate 90 90 [facility] pital Blood Pressure 175/114 175/114 [facility] Weight 96545 29194 [facility] pital Temperature Source 7 7 [facility] Temperature 97.1 97.1 [facility] Respiratory Effort 1 1 [facility] Respiratory Rate [address] [facility] Pulse Assessment Method 4 4 [facility] Pulse Rate 90 90 [facility] 175/114 175/114 [facility] Weight 30322 73861 [facility] pital Temperature Source 7 7 [facility] Temperature 97.1 97.1 [facility] Respiratory Effort 1 1 [facility] Respiratory Rate [address] [facility] Pulse Assessment Method 4 4 [facility] Pulse Rate 90 90 [facility] pital Blood Pressure 175/114 175/114 [facility]
[2020-08-26] MEDS ORDERED: NS 1,000 ML IV ONE
--- NOTE | 2020-08-26 00:28 | REPVR ---
PROCEDURE INFORMATION: Exam: CT Abdomen And Pelvis Without Contrast Exam date and time: 08/25/2020 11:59 PM Age: 39 years old Clinical indication: Abdominal pain; Flank; Right; Additional info: Right flank pain TECHNIQUE: Imaging protocol: Computed tomography of the abdomen and pelvis without contrast. Radiation optimization: All CT scans at this facility use at least one of these dose optimization techniques: automated exposure control; mA and/or kV adjustment per patient size (includes targeted exams where dose is matched to clinical indication); or iterative reconstruction. COMPARISON: CT ABD/PEL W/IV CONTRAST ONLY 06/08/2018 10:17 PM FINDINGS: Lungs: Atelectasis or scarring in the right middle lobe and lingula. Liver: Hepatomegaly and steatosis. Focal fat along the falciform ligament fissure. Gallbladder and bile ducts: Status post cholecystectomy. Pancreas: Normal. No ductal dilation. Spleen: Normal. No splenomegaly. Adrenal glands: Normal. No mass. Kidneys and ureters: Normal. No hydronephrosis. Stomach and bowel: Diverticulosis of the colon. No evidence of acute diverticulitis. Appendix: No evidence of appendicitis. Intraperitoneal space: Unremarkable. No free air. No significant fluid collection. Vasculature: Atherosclerotic disease of the abdominal aorta. Lymph nodes: Unremarkable. No enlarged lymph nodes. Urinary bladder: Unremarkable as visualized. Reproductive: Status post hysterectomy. Bones/joints: Degenerative disc disease at L4-L5. Stenosis of the spinal canal at this level. Soft tissues: Fat containing umbilical hernia. Mild stranding of the omental fat adjacent to the umbilical hernia possibly reflecting omental infarct. IMPRESSION: Fat containing umbilical hernia. Mild stranding of the omental fat adjacent to the umbilical hernia possibly reflecting omental infarct. Correlate for point tenderness. No bowel obstruction. Normal appendix. No hydronephrosis or nephrolithiasis bilaterally. Electronically signed by: Wali Acosta On 08/26/2020 00:27:46 AM
[2020-08-26 00:53] LABS: BASO # 0.1 10^3/uL (0.0-0.2); BASO % 0.5 % (0.0-1.0); EOS # 0.3 10^3/uL (0.0-0.5); EOS % 1.6 % (0.0-3.0); HEMATOCRIT 53.2 % (36.0-47.0); HEMOGLOBIN 16.4 g/dl (12.0-15.5); LYMPH # 3.1 10^3/uL (1.5-5.0); LYMPH % 16.9 % (24.0-44.0); MEAN CORPUSCULAR HEMOGLOBIN 25.8 pg (27.0-33.0); MEAN CORPUSCULAR HGB CONC 30.8 g/dl (32.0-36.5); MEAN CORPUSCULAR VOLUME 83.8 fl (80.0-96.0); MONO # 1.5 10^3/uL (0.0-0.8); MONO % 8.3 % (0.0-5.0); NEUTROPHILS # 13.2 10^3/uL (1.5-8.5); PLATELET COUNT, AUTOMATED 490 10^3/uL (150-450); RED BLOOD COUNT 6.35 10^6/uL (4.00-5.40); WHITE BLOOD COUNT 18.3 10^3/uL (4.0-10.0)
[2020-08-26 01:24] LABS: BILIRUBIN,DIRECT 0.1 MG/DL (0.0-0.2); BILIRUBIN,TOTAL 0.3 MG/DL (0.2-1.0); CALCIUM LEVEL 10.3 MG/DL (8.5-10.1); CREATININE FOR GFR 1.72 MG/DL (0.55-1.30); GLOMERULAR FILTRATION RATE 34.8 (>58); POTASSIUM SERUM 4.2 MEQ/L (3.5-5.1); TOTAL PROTEIN 8.5 GM/DL (6.4-8.2)
[2020-08-26] MEDS ORDERED: fentaNYL 100 MCG/2 ML INJECTION (J3010) IV ONE (03:15)
[2020-08-26 03:41] VITALS: BP 132/70
--- OUTSIDE RECORDS SUMMARY | 2020-08-26 04:11 | CCD ---
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 Name Role Phone PETROFF, TIGIST PA Unavailable [...] Chang LOPEZ Unavailable Unavailable Sarthak, A Adina BILLING SERVICES MANAGER Unavailable Unavailable Sarthak, A Adina BILLING SERVICES MANAGER Unavailable Unavailable Sarthak, A Adina BILLING SERVICES MANAGER Unavailable Unavailable Sarthak, A Adina BILLING SERVICES MANAGER Unavailable Unavailable Sarthak, A Adina BILLING SERVICES MANAGER Unavailable Unavailable Sarthak, A Adina BILLING SERVICES MANAGER Unavailable Unavailable Sarthak, A Adina BILLING SERVICES MANAGER Unavailable Unavailable Sarthak, A Adina BILLING SERVICES MANAGER Unavailable Unavailable Sarthak, A Adina BILLING SERVICES MANAGER Unavailable Unavailable Sarthak, A Adina BILLING SERVICES MANAGER Unavailable Unavailable Sarthak, A Adina BILLING SERVICES MANAGER Unavailable Unavailable Sarthak, A Adina BILLING SERVICES MANAGER Unavailable Unavailable Sarthak, A Adina BILLING SERVICES MANAGER Unavailable Unavailable Sarthak, A Adina BILLING SERVICES MANAGER Unavailable Unavailable Sarthak, A Adina BILLING SERVICES MANAGER Unavailable Unavailable Sarthak, A Adina BILLING SERVICES MANAGER Unavailable Unavailable Sarthak, A Adina BILLING SERVICES MANAGER Unavailable Unavailable Sarthak, A Adina BILLING SERVICES MANAGER Unavailable Unavailable Sarthak, A Adina BILLING SERVICES MANAGER Unavailable Unavailable Sarthak, A Adina BILLING SERVICES MANAGER Unavailable Unavailable Sarthak, A Adina BILLING SERVICES MANAGER Unavailable Unavailable Sarthak, A Adina BILLING SERVICES MANAGER Unavailable Unavailable Sarthak, A Adina BILLING SERVICES MANAGER Unavailable Unavailable Sarthak, A Adina BILLING SERVICES MANAGER Unavailable Unavailable Sarthak, A Adina BILLING SERVICES MANAGER Unavailable Unavailable Sarthak, A Adina BILLING SERVICES MANAGER Unavailable Unavailable Sarthak, A Aidna BILLING SERVICES MANAGER Unavailable Unavailable Sarthak, A Adina BILLING SERVICES MANAGER Unavailable Unavailable Sarthak, A Adina BILLING SERVICES MANAGER Unavailable Unavailable Sarthak, A Adina BILLING SERVICES MANAGER Unavailable Unavailable Sarthak, A Adina BILLING SERVICES MANAGER Unavailable Unavailable Sarthak, A Adina BILLING SERVICES MANAGER Unavailable Unavailable Sarthak, A Adina BILLING SERVICES MANAGER Unavailable Unavailable Sarthak, A Adina BILLING SERVICES MANAGER Unavailable Unavailable Sarthak, A Adina BILLING SERVICES MANAGER Unavailable Unavailable Sarthak, A Adina BILLING SERVICES MANAGER Unavailable Unavailable Sarthak, A Adina BILLING SERVICES MANAGER Unavailable Unavailable Sarthak, A Adina BILLING SERVICES MANAGER Unavailable Unavailable Sarthak, A Adina BILLING SERVICES MANAGER Unavailable Unavailable Sarthak, A Adina BILLING SERVICES MANAGER Unavailable Unavailable Sarthak, A Adina BILLING SERVICES MANAGER Unavailable Unavailable Sarthak, A Adina BILLING SERVICES MANAGER Unavailable Unavailable Sarthak, A Adina BILLING SERVICES MANAGER Unavailable Unavailable Sarthak, A Adina BILLING SERVICES MANAGER Unavailable Unavailable ZEGIL, D MARBELLA BILLING SERVICES MANAGER Unavailable Unavailable ZEGIL, D MARBELLA BILLING SERVICES MANAGER Unavailable Unavailable ZEGIL, D MARBELLA BILLING SERVICES MANAGER Unavailable Unavailable Marilyn Gamez Phyllis ANP-BC Unavailable [...] Franco, Marilyn Phyllis ANP-BC Unavailable Unavailable Franco, Mrailyn Phyllis ANP-BC Unavailable Unavailable Franco, Marilyn Phyllis [...] BACA SR, JOSE SORENSEN MD Unavailable Unavailable BAAC SR, JOSE SORENSEN MD Unavailable Unavailable BACA [...] is protected by Article 27-F of the [facility] Public Health law. If you continue you may have access to information: Regarding HIV / AIDS; Provided by facilities licensed or operated by the [facility] Office of Mental Health; or Provided by the [facility] Office for People With Developmental Disabilities. If such information is present, then the following [facility] mandated warning applies: This information has been [...] law may result in a fine or longterm sentence or both. A general authorization for the release of medical or other information is NOT sufficient authorization for further disc losure. Allergies and Adverse Reactions Type Description Substance Reaction Status Data Source(s ) Drug allergy Drug allergy Quinolones [facility] Drug allergy Drug allergy Sulfa (Sulfonamide Antibiotics) Rash I [facility] Family History Family Member Name Family Member Gender Family Member Status Date o f Status Description Data Source(s) Unknown Unknown Problem [facility] ([facility]) Unknown Female Problem [facility] ([facility]) Unknown Female Problem [facility] ([facility]) Encounters Encounter Providers Location Date Indications Data Source(s ) Outpatient Attender: Micha Goss 08/31/2020 12:00:00 AM E [facility] Emergency Attender: MARBELLA BLOCK [facility] ED-ED 07/2019 08:23:00 PM EST - 06/21/2020 09:29:00 PM EST HARD TIME BREATHING [facility] HARD TIME BREATHING Patient discharged. Outpatient Attender: Phyllis WEBER-BC 04/22 01:04:00 PM EDT - 05/16/2020 01:04:00 PM EDT [facility] Outpatient Attender: Franco MOORE 04/05/2020 10:28:00 AM EDT [facility] Outpatient Attender: Franco Frederick MD FP 03/24/2020 12:02:07 AM EDT [facility] Outpatient Attender: Micha Goss 03/24/2020 12:00:00 AM [facility] Outpatient Attender: Franco Frederick MD FP 03/23/2020 09:32:01 AM EDT [facility] Outpatient Attender: Franco Frederick MD FP 03/23/2020 09:31:00 AM EDT [facility] Outpatient Attender: Franco Frederick MD FP 03/08/2020 03:31:00 PM EDT [facility] Outpatient Attender: Franco Frederick MD FP 03/02/2020 02:29:00 PM EDT [facility] Outpatient Attender: Franco Frederick MD FP 03/02/2020 02:26:01 PM EDT [facility] Emergency Attender: Braxton VALENTINOttender: Braxton FAROOQ ED-ED 02/19/2020 09:40:00 PM EDT - 02/20/2020 12:22:00 AM EDT GEN WEAKNESS [facility] GEN WEAKNESS Patient discharged. Outpatient Attender: Franco Frederick MD FP 02/19/2020 10:51:01 AM EDT [facility] Outpatient Attender: Franco Frederick MD FP 02/17/2020 08:52:00 AM EDT [facility] Outpatient Attender: Franco Frederick MD FP 02/02/2020 02:00:03 PM EDT [facility] Outpatient Attender: Franco Frederick MD FP 01/27/2020 06:00:04 PM EDT [facility] Outpatient Attender: Luz Marina David/Charlie/Antonio/Eugene nd 01/27/2020 02:30:00 PM [facility] Outpatient Attender: Franco Frederick MD FP 01/27/2020 01:55:00 PM EDT [facility] Outpatient Attender: Franco Frederick MD FP 01/27/2020 01:08:00 PM EDT [facility] Outpatient Attender: Franco Frederick MD FP 01/26/2020 11:45:00 AM EDT [facility] Outpatient Attender: Franco Frederick MD FP 01/26/2020 09:08:01 AM EDT [facility] Outpatient Attender: Franco Frederick MD FP 01/25/2020 10:05:00 AM EDT [facility] Outpatient Attender: Franco Frederick MD FP 01/14/2020 08:04:01 AM EDT [facility] Outpatient Attender: Franco Frederick MD FP 01/08/2020 10:00:00 AM EDT [facility] Outpatient Attender: Franco Frederick MD FP 01/01/2020 04:32:02 PM EDT [facility] Outpatient Attender: Franco Frederick MD FP 12/26/2019 12:02:03 AM EDT [facility] Outpatient Attender: Franco Frederick MD FP 12/25/2019 05:44:06 PM EDT [facility] Outpatient Attender: Franco Frederick MD FP 12/25/2019 05:44:02 PM EDT [facility] Outpatient Attender: Franco Frederick MD FP 12/25/2019 05:14:00 PM EDT [facility] Outpatient Attender: Franco Frederick MD FP 12/25/2019 05:13:00 PM EDT [facility] Outpatient Attender: Franco Frederick MD FP 12/23/2019 11:34:01 AM EDT [facility] Outpatient Attender: Franco Frederick MD FP 12/18/2019 03:06:00 PM EDT [facility] C ENTER 12/08/2019 12:00:00 AM EDT eCW1 ([facility]) Outpatient Attender: Franco Frederick MD FP 12/07/2019 07:44:01 AM EDT [facility] Outpatient Attender: Franco Frederick MD FP 12/04/2019 08:31:01 AM EDT [facility] Outpatient Attender: Franco Frederick MD FP 12/04/2019 08:28:00 AM EDT [facility] Outpatient Attender: Franco Frederick MD FP 12/04/2019 08:27:01 AM EDT [facility] Outpatient Attender: Franco Frederick MD FP 12/03/2019 09:00:03 AM EDT [facility] Emergency Referrer: SUKUMAR FAROOQ 05:58:00 AM EDT - 12/02/2019 06:25:21 AM EDT hx esophageal cancer, [facility] hx esophageal cancer, dysphagia Outpatient Attender: SUKUMAR JEAN PAConsultant: [facility] os [id number] 12/01/2019 02:55:00 AM EDT [facility] Emergency Attender: SUKUMAR Rivaserrer: Joseph BACA EMERGENCY ROOM-ER 12/01/2019 02:36:00 AM EDT - 12/01/2019 06:50:00 AM EDT [facility] Patient discharged. Outpatient Attender: Franco Frederick MD FP 11/26/2019 09:01:03 PM EDT [facility] Outpatient Attender: Franco Frederick MD FP 11/26/2019 01:16:00 PM EDT [facility] Outpatient Attender: Franco Frederick MD FP 11/19/2019 09:01:02 PM EDT [facility] Outpatient Attender: Franco Frederick MD FP 11/19/2019 12:36:02 PM EDT [facility] Outpatient Attender: Franco Frederick MD FP 11/19/2019 12:35:05 PM EDT [facility] Outpatient Attender: Franco Frederick MD FP 11/19/2019 12:22:06 PM EDT [facility] Outpatient Attender: Franco Frederick MD FP 11/19/2019 11:21:01 AM EDT [facility] Outpatient Attender: Franco Frederick MD FP 11/19/2019 11:20:00 AM EDT [facility] Outpatient Attender: Franco Frederick MD FP 11/19/2019 10:41:00 AM EDT [facility] Outpatient Attender: Franco Frederick MD FP 11/13/2019 03:10:01 PM EDT [facility] Outpatient Attender: Franco Frederick MD FP 11/13/2019 12:08:01 PM EDT [facility] Outpatient Attender: Franco Frederick MD FP 11/13/2019 12:08:01 PM EDT [facility] Outpatient Attender: Chang David/Charlie/Antonio/Re indl 11/13/2019 11:00:00 AM EDT [facility] ([facility]) Outpatient Attender: Franco Frederick MD FP 11/13/2019 10:34:00 AM EDT [facility] Outpatient Attender: Fracno Frederick MD FP 11/12/2019 09:01:03 PM EDT [facility] Outpatient Attender: Franco Frederick MD FP 11/12/2019 04:10:01 PM EDT [facility] Outpatient Attender: Franco Frederick MD FP 11/12/2019 04:10:00 PM EDT [facility] Outpatient Attender: Franco Frederick MD 11/12/2019 12:42:02 PM EDT [facility] Outpatient Attender: Franco Frederick MD 11/12/2019 12:42:01 PM EDT [facility] Outpatient Attender: Franco Frederick MD 11/12/2019 10:58:00 AM EDT [facility] Outpatient Attender: Franco Frederick MD FP 11/12/2019 10:51:00 AM EDT [facility] Outpatient Attender: Franco Frederick MD 11/12/2019 10:50:00 AM EDT [facility] Outpatient Attender: Franco Frederick MD 11/12/2019 09:06:01 AM EDT [facility] Outpatient Attender: Franco Frederick MD 11/12/2019 08:28:00 AM EDT [facility] Outpatient Attender: Franco Frederick MD 11/09/2019 03:14:00 PM EDT [facility] Outpatient Attender: Franco Frederick MD 11/09/2019 01:48:00 PM EDT [facility] Outpatient Attender: Franco Frederick MD 07/15/2019 09:01:05 PM [facility] Emergency Attender: LAURENCE Rodriguezer: EDU BACA SR 04/02/2018 12:14:00 AM EDT - 04/02/2018 01:35:00 AM [facility] Emergency Attender: MOSHE YOUSIF JRReferrer: Me ga De León [facility] EMERGENCY ROOM-ER 03/15/2018 11:49:00 AM EDT - 03/15/2018 01:00:00 PM [facility] Emergency Attender: TIGIST Rivaserrer: Jessy De León [facility] EMERGENCY ROOM-ER 11/08/2017 12:27:00 PM EDT - 11/08/2017 02:20:00 PM [facility] Outpatient Attender: Margaret Rodriguezer: Saba [place] [facility] 07/30/2012 02:51:00 PM [facility] Emergency Attender: LAURENCE FAROOQ EMERGENCY ROOM- ER 03/13/2012 02:04:00 PM EDT - 03/13/2012 06:15:00 PM [facility] Immunizations Vaccine Date Status Description Data Source(s) New in 2011. IIV4 05/16/2020 01:38:00 PM EDT completed MED[facility] ([facility]) Medications Medication Brand Name Start Date [...] DAILY FOR 3 DAYS SOLD: 06/26/2020 [employer] 12 HR Guaifenesin 600 MG Extended Release [...] TAKE ONE DAILY THEREAFTER SOLD: 06/22/2020 [employer] montelukast 10 MG Oral Tablet MONTELUKAST SODIUM [...] FOUR TIMES A DAY SOLD: 01/28/2020 [employer] montelukast 10 MG Oral Tablet MONTELUKAST SODIUM [...] 01/27/2020 12:00:00 AM EDT active M EDENT ([facility], ) montelukast 10 MG Oral Tablet [Singulair] Singulair 2019 12:00:00 AM EDT ORAL active MED[facility] ( [facility], ) 10 mg 01/21/2020 12:00:00 AM EDT [...] Acetonide 11/13/2019 12:00:00 AM EDT active [facility] ([facility], ) . UNIT 11/12/2019 12:00:00 AM EDT [...] type / Coverage type Policy ID Covered democrat ID Covered democrat's relationship to mayers Policy Mayers Plan Information [facility] COMMUNITY PLAN [facility] [id number] SP [id number] [facility] I [id number] Self [id number] EMEDNY [id number] SP [id number] MVP MCDHMO [id number] SP [id number] [facility] COMMUNITY [id number] S [id number] MVP [facility] CARE [id number] S [id number] Managed Care - [facility] Community Plan P [id number] S [id number] Medicaid S [id number] S [id number] Medicaid P [id number] S [id number] MEDICAID [id number] S [id number] MEDICAID [id number] SP [id number] MEDICAID [id number] S [id number] [facility] MEDICAID [id number] S [id number] MEDICAID [id number] S [id number] [facility] MEDICAID [id number] S [id number] [facility] [id number] S [id number] Managed Care - [facility] Community Plan P [id number] S [id number] Medicaid S [id number] S [id number] SELF PAY ONLY [id number] SP [id number] UN COMMUNITY PLAN MCDHMO [id number] SP [id number] [facility] Health Maintenance Organization (HMO) [id number] Self [id number] Managed Care - Community Plan [facility] P [id number] S [id number] [facility] Health Maintenance Organization (HMO) [id number] Self [id number] Self Pay P UNAVAILABLE S UNAVAILA BLE Managed Care - Community Plan [facility] S [id number] S [id number] [facility](MCAID) O [id number] S [id number] Medicaid S [id number] S [id number] Managed Care - Community Plan [facility] P [id number] S [id number] ANSI-Medicaid [id number] ANSI-Medicaid [id number] UNHC WELL 4 [place] [id number] S [id number] UNHC FBH [id number] S [id number] [facility] Lisette/MCR Medigap Part B [id number] Self [id number] [facility] Lisette/MCR Health Maintenance Organization (HMO) [id number] Self [id number] [facility] [place]/MCR Medigap Part B [id number] Self [id number] UNHC COMMUNITY PLAN MCDHMO [id number] SP [id number] [facility] MEDICAID [id number] S [id number] [facility] WELL 4 [place] [id number] S [id number] NCO EPALS [id number] SP [id number] MED[place]ID IN [place] [id number] SP [id number] MEDICAID [id number] SP [id number] A [facility]-Community Plan-[place]isette Commercial [id number] Self [id number] UNHC COMMUNITY PLAN MCDHMO [id number] SP [id number] UNHC COMMUNITY PLAN MCDHMO [id number] SP [id number] [facility](MCAID) O [id number] S [id number] [facility] Lisette/MCR Medigap Part B Self [facility] Lis[place]/MCR Health Maintenance Organization (HMO) Self [facility] COMMUNITY PLAN MCDHMO [id number] SP [id number] [facility] Community Plan Commercial Self [facility](MCAID) O [id number] S [id number] MEDICAID [id number] SP [id number] [facility] [id number] SP [id number] Medicaid S [id number] S [id number] Managed Care - Community Plan [facility] P [id number] S [id number] Medicaid S [id number] S [id number] UNHC COMMUNITY PLAN MCDHMO [id number] SP [id number] MEDICAID [id number] SP [id number] MEDICAID [id number] SP [id number] [facility] [id number] HU [id number] [facility] [id number] HU [id number] [facility] [id number] [id number] [employer] [id number] SP [id number] ACTIVE DUTY [id number] HU [id number] [facility] [id number] HU [id number] [facility] [id number] [id number] [employer] [place] [facility] SP MEDICAID -O/P [id number] Problems, Conditions, and Diagnoses Code Display Name Description Problem Type Effective Dates Data Source(s) 644020228 Family history of malignant neoplasm of thoracic cavity structure Family history of malignant neoplasm of thoracic cavity structure Problem 05/25/2020 12:00:00 AM EST MEDENT ([facility]) [id number] Family history of endocrine disorders Fa kenneth history of endocrine disorders Problem 05/25/2020 12:00:00 AM EST MED[facility] ([facility]) 307537491 Family history of familial hypercholeste rolemia Family history of familial hypercholesterolemia Problem 05/25/2020 12:00:00 AM EST MED ENT ([facility]) Family history of ischemic h eart disease and other diseases of the circulatory system Family history of ischemic heart disease and other diseases of the circulatory system Problem 05/25/2020 12:00:00 AM EST MED[facility] ([facility]) 300623712 Family history of diabetes mellitus Fami ly history of diabetes mellitus Problem 05/25/2020 12:00:00 AM EST [facility] ([facility]) [id number] Mental disorder Mental disorder Problem 05/25/2020 12:0 0:00 AM EST MED[facility] ([facility]) 323355065 Family history of asthma Family history of asthma Prob andrew 05/25/2020 12:00:00 AM EST MED[facility] ([facility]) 609355988 FH: Arthritis FH: Arthritis Problem 05/25/2020 12:00:00 AM EST [facility] ([facility]) 888683285 Hemorrhage of rectum and anus Hemorrhage of rectum and anus Problem 05/25/2020 12:00:00 AM EST [facility] ([facility]) 28876270 Cerebral artery occlusion Cerebral artery occlusion Pr oblem 05/25/2020 12:00:00 AM EST [facility] ([facility]) 531102891 Pure hypercholesterolemia Pure hypercholesterolemia Pr oblem 05/25/2020 12:00:00 AM EST [facility] ([facility]) [id number] Type II diabetes mellitus uncontrolled T ype II diabetes mellitus uncontrolled Problem 05/25/2020 12:00:00 AM EST [facility] ([facility]) 04729003 Moderate recurrent major depression Mode rate recurrent major depression Problem 05/25/2020 12:00:00 AM EST [facility] ([facility]) 627.2 Menopausal flushing Menopausal flushing 020 05:43:25 PM EDT [facility] G54.0 Brachial plexus disorders Right thoracic outlet syndro me 11/19/2019 12:34:19 PM EDT [facility] 339.12 Chronic tension-type headache, intractab le Chronic tension-type headache, intractable 11/12/2019 12:41:20 PM EDT [facility] K12.1 Other forms of stomatitis Stomatitis 11/12/2019 12:41:20 PM EDT [facility] 786.50 Chest pain Chest pain 11/12/2019 12:41:20 PM ED T [facility] L40.0 Psoriasis vulgaris Actively extending plaque psoriasis 11/12/2019 12:41:20 PM EDT [facility] Z93.0 Tracheostomy status TRACHEOSTOMY STATUS Diagnosis 0 02/19/2020 09:40:00 PM [facility] 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 R10.84 Generalized abdominal pain GENERALIZED ABDOMINAL PAIN Diagnosis 02/19/2020 09:40:00 PM [facility] hx esophageal cancer, dysphagia hx esophageal cancer, dysphagia Diagnosis 12/02/2019 06:25:26 AM [facility] Y92.[address] Other specified places as the place of o ccurrence of the external cause OTH PLACES THE PLACE OF OCCURRENCE OF THE EXTER Diagnosis 06/2020 02:36:00 AM [facility] X58.XXXA Exposure to other specified factors, ini tial encounter EXPOSURE TO OTHER SPECIFIED FACTORS, INITIAL ENCOU Diagnosis 12/01/2019 02:36:00 A M [facility] Y93.89 Activity, other specified ACTIVITY, OTHER SPECIFIED Di agnosis 12/01/2019 02:36:00 AM [facility] Z93.3 Colostomy status COLOSTOMY STATUS Diagnosis 12/01/2019 02 :36:00 AM [facility] Z79.899 Other half-way (current) drug therapy O THER SNF (CURRENT) DRUG THERAPY Diagnosis 12/01/2019 02:36:[address] 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 L90.5 Scar conditions and fibrosis of skin SCAR CONDIT IONS AND FIBROSIS OF SKIN Diagnosis 12/01/2019 02:36:00 AM [facility] F17.210 Nicotine dependence, cigarettes, uncompl icated NICOTINE DEPENDENCE, CIGARETTES, UNCOMPLICATED Diagnosis 12/01/2019 02:36:00 AM [facility] E78.00 PURE HYPERCHOLESTEROLEMIA, UNSPECIFIED P URE HYPERCHOLESTEROLEMIA, UNSPECIFIED Diagnosis 12/01/2019 02:36:00 AM [facility] E11.9 Type 2 diabetes mellitus without complic ations TYPE 2 DIABETES MELLITUS WITHOUT COMPLICATIONS Diagnosis 12/01/2019 02:36:00 AM [facility] J44.9 Chronic obstructive pulmonary disease, u nspecified CHRONIC OBSTRUCTIVE PULMONARY DISEASE, UNSPECIFIED Diagnosis 12/01/2019 02:36:00 AM [facility] I10 Essential (primary) hypertension ESSENTIAL (PRIMARY) H YPERTENSION Diagnosis 12/01/2019 02:36:00 AM [facility] T18.128A Food in esophagus causing other injury, initial encounter FOOD IN ESOPHAGUS CAUSING OTHER INJURY, INITIAL EN Diagnosis 12/01/2019 02:36: 00 AM [facility] R47.02 Dysphasia DYSPHASIA Diagnosis 12/01/2019 02:36:00 AM [facility] Surgeries/Procedures Procedure Description Date Indications Data Source(s) Brief Emotional/Behav Assessment W/ Scoring Doc Per Standard Inst 05/16/2020 12:00:00 AM [facility]) Admin Patient Focused Health Risk Assessment Instrument 05/16/2020 12:00:00 AM [facility]) Non-covered item or service NON-COVERED ITEM OR SERVICE 07/2019 12:00:00 AM [facility] CT ABDOMEN & PELVIS W/O CONTRAST MATERIAL 02/19/2020 1 2:00:00 AM EDT [facility] ([facility]) CT ABDOMEN & PELVIS W/O CONTRAST MATERIAL CT ABD & PELVIS W/ O CONTRAST 02/19/2020 12:00:00 AM [facility] [address] X-RAY EXAM CHEST 1 VIEW 02/19/2020 12:00:00 AM [facility] URINALYSIS MICROSCOPIC ONLY MICROSCOPIC EXAM OF URINE 2019 12:00:00 AM [facility] BLOOD COUNT COMPLETE AUTO&AUTO DIFRNTL WBC COUNT COMPLETE CB C W/AUTO DIFF WBC 02/19/2020 12:00:00 AM [facility] AMYLASE ASSAY OF AMYLASE 02/19/2020 12:00:00 AM [facility] URINE TEST VISUAL COLOR CMPRSN METHS URINE PREGNAN CY TEST 02/19/2020 12:00:00 AM [facility] NATRIURETIC PEPTIDE ASSAY OF NATRIURETIC PEPTIDE 02/19/2020 12:00:0 0 AM [facility] TROPONIN QUANTITATIVE ASSAY OF TROPONIN QUANT 02/19/2020 12:00:00 A M [facility] LIPASE ASSAY OF LIPASE 02/19/2020 12:00:00 AM [facility] COMPREHENSIVE METABOLIC PANEL COMPREHEN METABOLIC PANEL 01/21 12:00:00 AM [facility] Infusion, normal saline solution , 1000 cc 02/19/2020 12:00:00 AM [facility] EMERGENCY DEPARTMENT VISIT HIGH/URGENT SEVERITY EMERGENCY DE PT VISIT 02/19/2020 12:00:00 AM [facility] Results ID Date Data Source [id number] 06/23/2020 05:54:00 PM EST [facility] Name Value Range Interpretation Code Description Data Elizabeth rce(s) Supporting Document(s) SARS-CoV-2 (COVID 19) [facility] This lab was ordered by [facility] a nd reported by [facility]. ID Date Data Source [id number] 06/23/2020 05:54:00 PM EST [facility] ([facility]) Name Value Range Interpretation Code Description Data Elizabeth rce(s) Supporting Document(s) Respiratory Panel Laboratory test result [facility] ([facility]) This respiratory PCR panel detects Influ [...] 1: HUMAN RHINOVIRUS/ENTEROVIRUS ID Date Data Source [id number] 06/23/2020 05:54:00 PM EST [facility] ([facility]) Name Value Range Interpretation Code Description Data Elizabeth rce(s) Supporting Document(s) Lactate [Mass/volume] in Serum or Plasma 1.4 mmol/L 0.4-2.0 Normal (applies to non-numeric results) [facility] ([facility]) Y/N query for Sepsis Lactate Rule: Y ID Date Data Source [id number] 06/23/2020 05:54:00 PM EST [facility] ([facility]) Name Value Range Interpretation Code Description Data Elizabeth rce(s) Supporting Document(s) Blood Urea Nitrogen 6 mg/dL 7-18 Below low normal [facility] ([facility]) Glucose, Fasting 206 mg/dL 70-100 Above high normal [facility] ([facility]) Glomerular Filtration Rate Laboratory test result Normal (applies to non- numeric results) [facility] ([facility]) <content>Units are mL/min/1.73 m2</content>
<content></content>
<content>Chronic Kidney Disease Staging per NKF:</content>
<content></content>
<content>Stage I & II GFR >=60 Normal to Mildly Decreased</content>
<content>Stage III GFR 30- 59 Moderately Decreased</content>
<content>Stage IV GFR 15-29 Severely Decreased</content>
<content>Stage V GFR <15 Very Little GFR Left</content>
<content>ESRD GFR <15 on SOFT WORK WRAPPER EXAMINER</content>
<content></content> Sodium Level 128 meq/L 136-145 Below low normal [facility] ([facility]) Creatinine For GFR 0.68 mg/dL 0.55-1.30 Normal (applies to non -numeric results) [facility] ([facility]) Carbon Dioxide Level 31 meq/L 21-32 Normal (applies to non-num sukumar results) [facility] ([facility]) Chloride Level 92 meq/L 98-107 Below low normal [facility] ([facility]) Potassium Serum 4.1 meq/L 3.5-5.1 Normal (applies to non-numeric results) [facility] ([facility]) Calcium Level 9.4 mg/dL 8.5-10.1 Normal (applies to non-numeric re sults) [facility] ([facility]) Anion Gap 5 meq/L 8-16 Below low normal [facility] ( [facility]) ID Date Data Source [id number] 06/23/2020 05:54:00 PM EST [facility] ([facility]) Name Value Range Interpretation Code Description Data Elizabeth rce(s) Supporting Document(s) White Blood Count 17.6 10 4.0-10.0 Above high normal [facility] ([facility]) Hemoglobin 14.4 g/dL 12.0-15.5 Normal (applies to non-numeric resul ts) [facility] ([facility]) Red Blood Count 5.33 10 4.00-5.40 Normal (applies to non-numeric results) [facility] ([facility]) Hematocrit 45.8 % 36.0-47.0 Normal (applies to non-numeric resul ts) [facility] ([facility]) Mean Corpuscular Volume 85.9 fl 80.0-96.0 Normal ( applies to non-numeric results) [facility] ([facility]) Mean Corpuscular HGB Conc 31.4 g/dL 32.0-36.5 Below low normal [facility] ([facility]) Mean Corpuscular Hemoglobin 27.0 pg 27.0-33.0 Norm al (applies to non-numeric results) [facility] ([facility]) Platelet Count, Automated 338 10 150-450 Normal (applies to non-numeric results) [facility] ([facility]) Red Cell Distribution Width 14.8 % 11.5-14.5 Above high normal [facility] ([facility]) Neutrophils % 79.1 % 36.0-66.0 Above high normal [facility] ([facility]) Lymph % 10.8 % 24.0-44.0 Below low normal [facility] ( [facility]) [place] % 9.0 % 0.0-5.0 Above high normal [facility] ([facility]) Eos % 0.2 % 0.0-3.0 Normal (applies to non-numeric resul ts) [facility] ([facility]) Immature Granulocyte % 0.7 % 0-3.0 Normal (applies to non-n umeric results) [facility] ([facility]) Baso % 0.2 % 0.0-1.0 Normal (applies to non-numeric resul ts) [facility] ([facility]) Nucleated Red Blood Cell % 0.0 % 0-0 Normal (applies to n on-numeric results) [facility] ([facility]) [place] # 1.6 10 0.0-0.8 Above high normal [facility] ([facility]) Neutrophils # 13.9 10 1.5-8.5 Above high normal [facility] ([facility]) Lymph # 1.9 10 1.5-5.0 Normal (applies to non-numeric resul ts) [facility] ([facility]) Eos # 0.0 10 0.0-0.5 Normal (applies to non-numeric resul ts) [facility] ([facility]) Baso # 0.0 10 0.0-0.2 Normal (applies to non-numeric resul ts) [facility] ([facility]) ID Date Data Source [id number] 06/23/2020 05:08:00 PM EST [facility] ([facility]) Name Value Range Interpretation Code Description Data Elizabeth rce(s) Supporting Document(s) ABG Partial Pressure O2 50.8 mmHg 75.0-100.0 Below low normal [facility] ([facility]) ABG Partial Pressure Co2 49.9 mmHg 35.0-45.0 Above high normal [facility] ([facility]) ABG pH (Arterial) 7.399 units 7.350-7.450 Normal (applie s to non-numeric results) [facility] ([facility]) ABG Total Co2 31.7 meq/L 22.0-29.0 Above high normal [facility] ([facility]) ABG Hco3 30.1 meq/L 22.0-26.0 Above high normal [facility] ([facility]) ABG Base Excess 4.2 Above high normal [facility] ([facility]) ABG O2 Saturation 88.7 % 95.0-99.0 Below low normal [facility] ([facility]) ABG Standard Hco3 27.9 meq/L 22.0-26.0 Above high normal [facility] ([facility]) ID Date Data Source [id number] 06/29/2020 08:28:00 AM [facility] Imaging Services Department Imaging Report [address] [place], [place] [address] %(RAD)RES..mtdd.print.filter("line") Name: KATHY BRADSHAW : 1980 Age/Sex: 39F Ordering Provider: VANESSA Haywood Med Rec #: [id number] Reg Status: [facility] ER Room #: Date of Service: 06/21/20 Report Number: [id number] cc:KIKO Gorman Send Report To: [id number] XRP/XR Chest 2 View [Pa & Lat] [...] Date/Time: 06/28/20 1355 Transcribed Date/Time: 06/29/20 0828 Swatch Cutter: DIAZ Name Value Range Interpretation Code Description Data Elizabeth rce(s) Supporting Document(s) ID Date Data Source [id number] 05/16/2020 02:20:00 PM EDT [facility] ([facility]) Name Value Range Interpretation Code Description Data Elizabeth rce(s) Supporting Document(s) Appearance of Urine Laboratory test result [facility] ([facility]) Color of Urine Laboratory test result [facility] ([facility]) Spec [place] 1.000 [facility] ([facility]) Leukocytes Laboratory test result [facility] ([facility]) pH of Urine by Test strip 8 [facility] ([facility]) Protein [Presence] in Urine by Test strip Laboratory test result [facility] ([facility]) Nitrate [Presence] in Urine Laboratory test result [facility] ([facility]) Inhouse Glucose Laboratory test result [facility] ([facility]) Ketones [Presence] in Urine by Test strip Laboratory test result [facility] ([facility]) Urobilinogen Laboratory test result [facility] ([facility]) Blood type and Indirect antibody screen panel - Blood Laboratory test result [facility] ([facility]) ID Date Data Source [id number] 02/20/2020 09:20:00 AM EDT [facility] Imaging Services Department Imaging Report [address] [place], [place] [address] %(RAD)RES..mtdd.print.filter("line") Name: KATHY BRADSHAW : 1980 Age/Sex: 39F Ordering Provider: CAPRI Lawrence Med Rec #: [id number] Reg Status: [facility] ER Room #: Date of Service: 02/19/20 Report Number: [id number] cc:PCP None Send Report To: [id number] XRP/XR Chest Xray Portable Reason for exam: [...] Jose MD> 02/22/20 1144 Dictation Date/Time: 02/19/20 2108 Transcribed Date/Time: 02/20/20 0920 Swatch Cutter: [email or web address] Name Value Range Interpretation Code Description Data Elizabeth rce(s) Supporting Document(s) ID Date Data Source [id number] 02/19/2020 10:53:00 PM [facility] Name Value Range Interpretation Code Description Data Elizabeth rce(s) Supporting Document(s) B-Type Natriuretic Peptide BNP <125 Normal (applies to non-numeric results) [facility] Results of this test should always be us ed in conjunction with the patients medical history, clinical presentation, and other findings. ID Date Data Source [id number] 02/19/2020 10:10:00 PM EDT [facility] ([facility]) Name Value Range Interpretation Code Description Data Elizabeth rce(s) Supporting Document(s) Laboratory test finding (navigational concept) 79.0 [facility] ([facility]) Results of this test should always be us ed in conjunction with the patients medical history, clinical presentation, and other findings. ID Date Data Source [id number] 02/19/2020 11:43:00 PM EDT [facility] Imaging Services Department Imaging Report [address] [place], [place] [address] %(RAD)RES..mtdd.print.filter("line") Name: KATHY BRADSHAW : 1980 Age/Sex: 39F Ordering Provider: CAPRI Lawrence Med Rec #: [id number] Reg Status: REG ER Room #: Date of Service: 02/19/20 Report Number: [id number] cc:CAPRI Lawrence; PCP None Send Report To: [...] 02/19/202342 Dictation Date/Time: 02/19/202342 Transcribed Date/Time: 02/19/202342 Swatch Cutter: Name Value Range Interpretation Code Description Data Elizabeth rce(s) Supporting Document(s) ID Date Data Source [id number] 02/19/2020 11:22:[address] [facility] Name Value Range Interpretation Code Description Data Elizabeth rce(s) Supporting Document(s) Sodium 130 mmol/L 136-145 Below low normal [facility] Potassium 3.5-5.1 Normal (applies to non-numeric resul ts) [facility] Chloride 93 mmol/L 98-107 Below low normal [facility] spital Carbon Dioxide CO2 21-32 Normal (applies to non-numer ic results) [facility] Anion Gap 5.0-16.0 Normal (applies to non-numeric resul ts) [facility] BUN 9 mg/dL 7-18 Normal (applies to non-numeric results) [facility] Creatinine,Serum 0.7-1.2 Normal (applies to non-numeric results) [facility] GFR >60 Normal (applies to non-numeric results) [facility] Glucose Level 124 mg/dL 60-99 Above high normal [facility] Reference range is only applicable when patient is fasting Note the following drug interference: Sulfasalazine Sulfapyridine Can see falsely depressed Can see falsely elevated result with up to 17% results with up to 11% decrease in measurement increase in measurement Recommend patients be collected for this test prior to administration of either drug. Calcium 8.5-10.1 Normal (applies to non-numeric resul ts) [facility] Bilirubin,Total 0.1-1.9 Normal (applies to non-numeric results) [facility] SGOT(AST) 20 U/L 15-37 Normal (applies to non-numeric resul ts) [facility] Note the following drug interference: Sulfasalazine Sulfapyridine Can see falsely depressed Can see falsely elevated result with up to 10% results with up to 10% decrease in measurement increase in measurement Recommend patients be collected for this test prior to administration of either drug. SGPT(ALT) 30 U/L 12-78 Normal (applies to non-numeric resul ts) [facility] Note the following drug interference: Sulfasalazine Sulfapyridine Can see falsely depressed Can see falsely elevated result with up to 29% results with up to 10% decrease in measurement increase in measurement Recommend patients be collected for this test prior to administration of either drug. Alkaline Phosphatase 81 U/L 38-126 Normal (applies to non-num sukumar results) [facility] can increase Alkaline Phosp le vels up to 2 times the normal adult value. Normal values for children and adolescents are 2 to 3 times the normal adult value. Total Protein 6.0-8.2 Normal (applies to non-numeric re sults) [facility] Albumin Level 3.4-5.0 Normal (applies to non-numeric re sults) [facility] ID Date Data Source [id number] 02/19/2020 11:22:[address] [facility] Name Value Range Interpretation Code Description Data Elizabeth rce(s) Supporting Document(s) Amylase 18 U/L 25-115 Below low normal [facility] spital ID Date Data Source [id number] 02/19/2020 11:22:[address] [facility] Name Value Range Interpretation Code Description Data Elizabeth rce(s) Supporting Document(s) Troponin I 0.000-0.056 Normal (applies to non-numeric resu lts) [facility] ID Date Data Source [id number] 02/19/2020 11:22:[address] [facility] Name Value Range Interpretation Code Description Data Elizabeth rce(s) Supporting Document(s) Lipase 152 U/L 73-393 Normal (applies to non-numeric resul ts) [facility] ID Date Data Source [id number] 02/19/2020 10:44:[address] [facility] Collected By: Nurse Initials: pc Time Collected: 2218 Collected By: Nurse Initials: pc Time Collected: 2218 Name Value Range Interpretation Code Description Data Elizabeth rce(s) Supporting Document(s) Color,Urine Colorl-Dk Y Normal (applies to non-numeric res ults) [facility] Clarity,Urine Clear Normal (applies to non-numeric re sults) [facility] Specific [place],Urine 1.005-1.030 Normal (applies to non- numeric results) [facility] pH,Urine 5.0-8.0 Normal (applies to non-numeric resul ts) [facility] Protein,Urine Negative Normal (applies to non-numeric re sults) [facility] Glucose,Urine Negative Normal (applies to non-numeric re sults) [facility] Ketones,Urine Negative Normal (applies to non-numeric re sults) [facility] Blood,Urine Negative Normal (applies to non-numeric resu lts) [facility] Bilirubin,Urine Negative Normal (applies to non-numeric results) [facility] Urobilinogen,Urine 0.2-1.0 Normal (applies to non-numer ic results) [facility] Leukocyte Esterase,Urine Negative Normal (applies to non -numeric results) [facility] Nitrite,Urine Negative Normal (applies to non-numeric re sults) [facility] WBC,Urine None Seen [facility] Bacteria,Urine None Seen [place] [facility] ital ID Date Data Source [id number] 02/19/2020 10:44:[address] [facility] Collected By: Nurse Initials: pc Time Collected: 2218 Collected By: Nurse Initials: pc Time Collected: 2218 Name Value Range Interpretation Code Description Data Elizabeth rce(s) Supporting Document(s) HCG,Ur Negative Normal (applies to non-numeric results) [facility] ID Date Data Source [id number] 02/19/2020 10:37:[address] [facility] Name Value Range Interpretation Code Description Data Elizabeth rce(s) Supporting Document(s) White Blood Count 3.5-10.5 Above high normal [facility] Red Blood Count 3.90-5.00 Above high normal [facility] Hemoglobin 12.0-15.5 Above high normal [facility] Hematocrit 34.9-44.5 Above high normal [facility] Mean Corpuscular Volume 81.2-95.1 Normal (applies to non- numeric results) [facility] Mean Corpuscular Hgb 25.6-32.2 Normal (applies to non-num sukumar results) [facility] Mean Corpuscular Hgb Conc 32.0-36.0 Normal (applies to no n-numeric results) [facility] Red Cell Distribution Width 11.9-15.5 Normal (appli es to non-numeric results) [facility] Platelet Count 304 x10 3/uL 150-450 Normal (applies to non-numeric results) [facility] Mean Platelet Volume 9.4-12.4 Normal (applies to non-num sukumar results) [facility] Neutrophils% (Auto) 31.0-71.0 Normal (applies to non-nume brianne results) [facility] Lymphocytes% (Auto) 20.0-55.0 Normal (applies to non-nume brianne results) [facility] Monocytes% (Auto) 4.0-12.0 Normal (applies to non-numeri c results) [facility] Eosinophils% (Auto) 1.0-8.0 Normal (applies to non-nume brianne results) [facility] Basophils% (Auto) 0.0-2.0 Normal (applies to non-numeri c results) [facility] Immature Granulocytes% (Auto) 0.0-2.0 Normal (pavithra lies to non-numeric results) [facility] Neutrophils# (Auto) 1.50-6.20 Above high normal [facility] Lymphocytes# (Auto) 1.20-4.00 Normal (applies to non-nume brianne results) [facility] Monocytes# (Auto) 0.00-0.90 Above high normal [facility] Eosinophils# (Auto) 0.00-0.50 Normal (applies to non-nume brianne results) [facility] Basophils# (Auto) 0.00-0.20 Normal (applies to non-numeri c results) [facility] Immature Granulocytes# (Auto) 0.00-7.00 No rmal (applies to non-numeric results) [facility] ID Date Data Source [id number] 02/19/2020 09:50:00 PM EDT [facility] ([facility]) Name Value Range Interpretation Code Description Data Elizabeth rce(s) Supporting Document(s) Laboratory test finding (navigational concept) 3.6 3.4-5.0 [facility] ([facility]) Laboratory test finding (navigational concept) 30 U/L 12-78 [facility] ([facility]) Note the following drug interference: Sulfasalazine Sulfapyridine Can see falsely depressed Can see falsely elevated result with up to 29% results with up to 10% decrease in measurement increase in measurement Recommend patients be collected for this test prior to administration of either drug. Alkaline phosphatase [Enzymatic activity/volume] in Serum or Plasma 81 U/L 38-126 [facility] ([facility]) can increase Alkaline Phosp le vels up to 2 times the normal adult value. Normal values for children and adolescents are 2 to 3 times the normal adult value. Total Protein 7.4 6.0-8.2 [facility] ([facility]) Bilirubin,Total 0.3 0.1-1.9 [facility] ([facility]) Calcium [Mass/volume] in Serum or Plasma 8.9 8.5-10.1 [facility] ([facility]) Laboratory test finding (navigational concept) 20 U/L 15-37 [facility] ([facility]) Note the following drug interference: Sulfasalazine Sulfapyridine Can see falsely depressed Can see falsely elevated result with up to 10% results with up to 10% decrease in measurement increase in measurement Recommend patients be collected for this test prior to administration of either drug. Laboratory test finding (navigational concept) 0.7 0.7-1.2 [facility] ([facility]) Laboratory test finding (navigational concept) 124 mg/dL 6 0-99 Above high normal [facility] ([facility]) Reference range is only applicable when [...] Creatinine-based formula (MDRD) Laboratory test result [facility] ([facility]) Laboratory test finding (navigational concept) 27.4 21-32 [facility] ([facility]) BUN 9 mg/dL 7-18 [facility] ([facility]) Anion Gap 9.6 5.0-16.0 [facility] ([facility]) Chloride 93 mmol/L 98-107 Below low normal [facility] ( [facility]) Sodium 130 mmol/L 136-145 Below low normal [facility] ( [facility]) Potassium 3.5 3.5-5.1 [facility] ([facility]) ID Date Data Source [id number] 02/19/2020 09:50:00 PM EDT [facility] ([facility]) Name Value Range Interpretation Code Description Data Elizabeth rce(s) Supporting Document(s) Amylase 18 U/L 25-115 Below low normal [facility] ( [facility]) ID Date Data Source [id number] 02/19/2020 09:50:00 PM EDT [facility] ([facility]) Name Value Range Interpretation Code Description Data Elizabeth rce(s) Supporting Document(s) Troponin I Laboratory test result 0.000-0.056 [facility] ([facility]) ID Date Data Source [id number] 02/19/2020 09:50:00 PM EDT [facility] ([facility]) Name Value Range Interpretation Code Description Data Elizabeth rce(s) Supporting Document(s) Lipase 152 U/L 73-393 [facility] ([facility]) ID Date Data Source [id number] 02/19/2020 09:50:00 PM EDT [facility] ([facility]) Name Value Range Interpretation Code Description Data Elizabeth rce(s) Supporting Document(s) Laboratory test finding (navigational concept) Laboratory test result [facility] ([facility]) Laboratory test finding (navigational concept) Laboratory test result [facility] ([facility]) Laboratory test finding (navigational concept) Laboratory test result [facility] ([facility]) Laboratory test finding (navigational concept) Laboratory test result [facility] ([facility]) Laboratory test finding (navigational concept) 0.2 0.2-1.0 [facility] ([facility]) Laboratory test finding (navigational concept) Laboratory test result [facility] ([facility]) Laboratory test finding (navigational concept) Laboratory test result [facility] ([facility]) Laboratory test finding (navigational concept) Laboratory test result [facility] ([facility]) Laboratory test finding (navigational concept) Laboratory test result [facility] ([facility]) Laboratory test finding (navigational concept) Laboratory test result [facility] ([facility]) Laboratory test finding (navigational concept) Laboratory test result [facility] ([facility]) Laboratory test finding (navigational concept) 6.0 5.0-8.0 [facility] ([facility]) Laboratory test finding (navigational concept) Laboratory te st result 1.005-1.030 [facility] ([facility]) Laboratory test finding (navigational concept) Laboratory test result 0-0 [facility] ([facility]) ID Date Data Source [id number] 02/19/2020 09:50:00 PM EDT [facility] ([facility]) Name Value Range Interpretation Code Description Data Elizabeth rce(s) Supporting Document(s) Laboratory test finding (navigational concept) Laboratory test result [facility] ([facility]) ID Date Data Source [id number] 02/19/2020 09:50:00 PM EDT [facility] ([facility]) Name Value Range Interpretation Code Description Data Elizabeth rce(s) Supporting Document(s) Laboratory test finding (navigational concept) 8.6 4.0-12.0 [facility] ([facility]) Laboratory test finding (navigational concept) 29.9 20.0-55.0 [facility] ([facility]) Laboratory test finding (navigational concept) 0.5 0.0-2.0 [facility] ([facility]) Laboratory test finding (navigational concept) 0.3 0.0-2.0 [facility] ([facility]) Laboratory test finding (navigational concept) 2.0 1.0-8.0 [facility] ([facility]) Laboratory test finding (navigational concept) 0.24 0.00-0.50 [facility] ([facility]) Laboratory test finding (navigational concept) 3.57 1.20-4.00 [facility] ([facility]) Laboratory test finding (navigational concept) 1.03 0 .00-0.90 Above high normal [facility] ([facility]) Laboratory test finding (navigational concept) 7.01 1 .50-6.20 Above high normal [facility] ([facility]) Laboratory test finding (navigational concept) 0.06 0.00-0.20 [facility] ([facility]) White Blood Count 12.0 3.5-10.5 Above high normal [facility] ([facility]) Laboratory test finding (navigational concept) 0.04 0.00-7.00 [facility] ([facility]) Hematocrit [Volume Fraction] of Blood by Automated count 45.8 34.9-44.5 Above high normal [facility] ([facility]) Hemoglobin 15.7 12.0-15.5 Above high normal [facility] ([facility]) Red Blood Count 5.30 3.90-5.00 Above high normal ME D[facility] ([facility]) Laboratory test finding (navigational concept) 29.6 25.6-32.2 [facility] ([facility]) Laboratory test finding (navigational concept) 34.3 32.0-36.0 [facility] ([facility]) Mean Corpuscular Volume 86.4 81.2-95.1 M [facility] ([facility]) Red Cell Distribution Width 12.5 11.9-15.5 [facility] ([facility]) Laboratory test finding (navigational concept) 304 x103/uL 150-450 [facility] ([facility]) Mean Platelet Volume 10.7 9.4-12.4 [facility] ([facility]) Laboratory test finding (navigational concept) 58.7 31.0-71.0 [facility] ([facility]) ID Date Data Source [id number] 02/09/2020 12:52:00 AM EDT [facility] ([facility]) Name Value Range Interpretation Code Description Data Elizabeth rce(s) Supporting Document(s) Thyroid Stimulating Hormone Laboratory test result 0.358-3.740 Bel ow low normal [facility] ([facility]) ID Date Data Source [id number] 02/09/2020 12:52:00 AM EDT [facility] ([facility]) Name Value Range Interpretation Code Description Data Elizabeth rce(s) Supporting Document(s) Thyroxine (T4) Laboratory test result 4.5-12.0 Above high normal [facility] ([facility]) ID Date Data Source [id number] 02/09/2020 12:52:00 AM EDT [facility] ([facility]) Name Value Range Interpretation Code Description Data Elizabeth rce(s) Supporting Document(s) Laboratory test finding (navigational concept) Laboratory test result [facility] ([facility]) ID Date Data Source [id number] 02/09/2020 12:52:00 AM EDT [facility] ([facility]) Name Value Range Interpretation Code Description Data Elizabeth rce(s) Supporting Document(s) Total Protein Laboratory test result 6.4-8.2 [facility] ([facility]) Bilirubin,Direct Laboratory test result 0.0-0.2 [facility] ([facility]) Albumin Laboratory test result 3.2-5.2 [facility] ([facility]) Bilirubin,Total Laboratory test result 0.2-1.0 [facility] ([facility]) Aspartate aminotransferase [Enzymatic activity/volume] in Serum or Plasma Laboratory test result 7-37 [facility] ([facility]) Alkaline phosphatase [Enzymatic activity/volume] in Se rum or Plasma Laboratory test result 45-117 [facility] ([facility]) Alanine aminotransferase [Enzymatic activity/volume] i n Serum or Plasma Laboratory test result 12-78 [facility] ([facility]) Albumin/Globulin Ratio 1.2 1.2-2.2 [facility] ([facility]) ID Date Data Source [id number] 02/09/2020 12:51:00 AM EDT [facility] ([facility]) Name Value Range Interpretation Code Description Data Elizabeth rce(s) Supporting Document(s) Laboratory test finding (navigational concept) Laboratory test r esult 0.4-2.0 Above upper panic limits [facility] ([facility]) ID Date Data Source [id number] 02/09/2020 12:24:00 AM EDT [facility] ([facility]) Name Value Range Interpretation Code Description Data Elizabeth rce(s) Supporting Document(s) Lymphocytes/100 leukocytes in Blood by Automated count Labor atory test result 24.0-44.0 Below low normal [facility] ([facility]) Neutrophils % Laboratory test result 36.0-66.0 Above high normal [facility] ([facility]) Platelet Count, Automated Laboratory test result 150-450 [facility] ([facility]) [place] % Laboratory test result 0.0-5.0 Above high normal [facility] ([facility]) Red Cell Distribution Width Laboratory test result 11.5-14.5 [facility] ([facility]) Mean Corpuscular HGB Conc Laboratory test result 32.0-36.5 [facility] ([facility]) Baso % Laboratory test result 0.0-1.0 [facility] ([facility]) Eos % Laboratory test result 0.0-3.0 [facility] ([facility]) Nucleated Red Blood Cell % Laboratory test result 0-0 [facility] ([facility]) Immature Granulocyte % Laboratory test result 0-3.0 [facility] ([facility]) Neutrophils # Laboratory test result 1.5-8.5 Above high normal [facility] ([facility]) [place] # Laboratory test result 0.0-0.8 [facility] ([facility]) Lymph # Laboratory test result 1.5-5.0 Below low normal [facility] ([facility]) Baso # Laboratory test result 0.0-0.2 [facility] ([facility]) Mean Corpuscular Hemoglobin Laboratory test result 27.0-33.0 [facility] ([facility]) Eos # Laboratory test result 0.0-0.5 [facility] ([facility]) Hemoglobin Laboratory test result 12.0-15.5 [facility] ([facility]) Mean Corpuscular Volume Laboratory test result 80.0-96.0 [facility] ([facility]) Hematocrit [Volume Fraction] of Blood by Automated count Lab oratory test result 36.0-47.0 [facility] ([facility]) White Blood Count Laboratory test result 4.0-10.0 Above high normal [facility] ([facility]) Red Blood Count Laboratory test result 4.00-5.40 [facility] ([facility]) ID Date Data Source [id number] 02/09/2020 12:13:00 AM EDT [facility] ([facility]) Name Value Range Interpretation Code Description Data Elizabeth rce(s) Supporting Document(s) Laboratory test finding (navigational concept) Laboratory test r esult 38.0-51.0 [facility] ([facility]) Laboratory test finding (navigational concept) Laboratory test r esult 70-105 Above high normal [facility] ([facility]) Laboratory test finding (navigational concept) Laboratory test resu lt 4.5-5.3 [facility] ([facility]) Laboratory test finding (navigational concept) Laboratory test r esult 136-145 Below low normal [facility] ([facility]) Laboratory test finding (navigational concept) Laboratory test resu lt 3.5-5.1 [facility] ([facility]) Laboratory test finding (navigational concept) Laboratory test r esult 98-109 Below low normal [facility] ([facility]) Laboratory test finding (navigational concept) Laboratory test r esult 23.0-27.0 [facility] ([facility]) Urea nitrogen [Mass/volume] in Serum or Plasma Laboratory test result 8-26 [facility] ([facility]) Creatinine [Mass/volume] in Serum or Plasma Laboratory test resu lt 0.6-1.3 Below low normal [facility] ([facility]) ID Date Data Source [id number] 02/08/2020 12:11:00 AM EDT [facility] ([facility]) Name Value Range Interpretation Code Description Data Elizabeth rce(s) Supporting Document(s) Laboratory test finding (navigational concept) Laboratory test result [facility] ([facility]) This lab was ordered by [facility] a nd reported by [facility]. ID Date Data Source [id number] 12/25/2019 05:13:16 PM EDT [facility] Measurements & CalculationsHeight: 70.8 inches 179.83 cm Weight: 258 pounds 117.27 kg Body Mass Index (BMI): 36.32BMI Interpretation: ObeseBody Surface Area (BSA): 2.35Vital SignsTemperature: 97.6F 36.44C tympanic Pulse Rate: 98 beats/minuteRespiratory Rate: 20 respirations/minuteBlood Pressure: 112/77 right arm sitting automaticO2 Saturation: 93% room airVital Signs performed by: Francisca Whelan , December 25, 2019 5:23 PMNurses Note [facility]'t go [facility] with transportation and issue with fathertrouble with [...] supplies reordered [facility] bleedingInitial Intake Information From: /patientRoom #: [...] DThyroid DisorderTotal Abdominal HysterectomyHyperlipidemiastrokerectal bleedingSurgical History:Cholecystectomy-1998Total Abdominal Qinhysbswxij-0620dtoik-5041lvqgqczhnnl-2002teeth removed a67Cqlsvn History:Family History of ArthritisFH of AnxietyFamily History [...] FairAssessment & Plan Problems:Added: Menopausal flushing (ICD-627.2) (DXS38-F52.1)Medication Changes:Refilled:LISINOPRIL 20 MG ORAL TABLET-One tablet by [...] ElectronicOrders:Adult - Ofc Vst, EST, Level III [CPT-66797] CBC W/DIFF [CPT-83747] ESTROGENS TOTAL [CPT-66103] PROGESTERONE [CPT-38228] GONADOTROPIN FOLLICLE STIMULATING HORMONE [CPT-47378] GONADOTROPIN LUTEINIZING HORMONE [CPT-11269] TSH [CPT-24270] Medications:MELOXICAM 15 MG ORAL TABLET (MELOXICAM) take one tab po daily #30[Tablet] x 3 Route:ORAL Entered and Authorized by: Jai Mccarty DO Method used: Electronically to [facility] (retail) [address] [place] [address] [phone] Note to Pharmacy: Route: ORAL; RxID: [id number] 600 MG ORAL TABLET (GABAPENTIN) take 2 tab po tid #120[Tablet] x 5 Route:ORAL Entered and Authorized by: Jai Mccarty DO Method used: Electronically to [facility] (retail) [address] [place] [address] [phone] Note to Pharmacy: Route: ORAL; RxID: [id number] 5 MG ORAL TABLET (GLYBURIDE) take one tab po daily with food #30[Tablet] x 5 Route:ORAL Entered and Authorized by: Jai Mccarty DO Method used: Electronically to [facility] (retail) [address] [place] [address] [phone] Note to Pharmacy: Route: ORAL; RxID: [id number] 600 MG ORAL TABLET (GABAPENTIN) take 2 tab po tid #120[Tablet] x 5 Route:ORAL Entered and Authorized by: Jai Mccarty DO Method used: Electronically to [facility] (retail) [address] [place] [address] [phone] Note to Pharmacy: Route: ORAL; RxID: [id number] 50 MCG/ACT NASAL SUSPENSION (FLUTICASONE PROPIONATE) one spray in each nostril daily #1 x 5 Route:NASAL Entered and Authorized by: Jai Mccarty DO Method used: Print then Give to Patient Note to Pharmacy: Route: NASAL; RxID: [id number] HCL 10 MG ORAL TABLET (HYDROXYZINE HCL) One po q8h prn anxiety. MDD 3. #90[Tablet] x 1 Route:ORAL Entered and Authorized by: Jai Mccarty DO Method used: Electronically to [facility] (retail) [address] [place] [address] [phone] Ph: Note to Pharmacy: Route: ORAL; RxID: [id number] 40 MG ORAL CAPSULE DELAYED RELEASE (OMEPRAZOLE) One tablet by mouth every day #30[Capsule] x 5 Route:ORAL Entered and Authorized by: Jai Mccarty DO Method used: Electronically to [facility] (retail) [address] [place] [address] [phone] Note to Pharmacy: Route: ORAL; RxID: [id number] 20 MG ORAL TABLET (LISINOPRIL) One tablet by mouth every day #30[Tablet] x 5 Route:ORAL Entered and Authorized by: Jai Mccarty DO Method used: Electronically to [facility] (retail) [address] [place] [address] [phone] Note to Pharmacy: Route: ORAL; RxID: [id number] 75 MG ORAL TABLET (VENLAFAXINE HCL) one tab po BID #60[Tablet] x 1 Route:ORAL Entered and Authorized by: Jai Mccarty DO Method used: Electronically to [facility] (retail) [address] [place] [address] [phone] Note to Pharmacy: Route: ORAL; RxID: [id number] 60 MG ORAL CAPSULE DELAYED RELEASE PARTICLES (DULOXETINE HCL) one tab po QD #30[Capsule] x 5 Route:ORAL Entered and Authorized by: Jai Mccarty DO Method used: Electronically to [facility] (retail) [address] [place] [address] [phone] Note to Pharmacy: Route: ORAL; RxID: [id number] 60 MG ORAL CAPSULE DELAYED RELEASE PARTICLES (DULOXETINE HCL) one tab po QD #30[Capsule] x 5 Route:ORAL Entered and Authorized by: Jai Mccarty DO Method used: Electronically to [facility]* (retail) [address] [place] [address] Note to Pharmacy: Route: ORAL; RxID: [id number] [id number] 200 MCG ORAL TABLET (LEVOTHYROXINE SODIUM) take one tab po daily on an empty stomach #30[Tablet] x 5 Route:ORAL Entered and Authorized by: Jai Mccarty DO Method used: Electronically to [facility] (retail) [address] [place] [address] [phone] Note to Pharmacy: Route: ORAL; RxID: [id number] 600 MG ORAL TABLET (GABAPENTIN) take 2 tab po tid #120[Tablet] x 5 Route:ORAL Entered and Authorized by: Jai Mccarty DO Method used: Electronically to [facility] (retail) [address] [place] [address] [phone] Note to Pharmacy: Route: ORAL; RxID: [id number] 50 MCG/ACT NASAL SUSPENSION (FLUTICASONE PROPIONATE) one spray in each nostril daily #1 x 5 Route:NASAL Entered and Authorized by: Jai Mccarty DO Method used: Print then Give to Patient Note to Pharmacy: Route: NASAL; RxID: [id number] [id number] 10 MG ORAL TABLET (HYDROXYZINE HCL) One po q8h prn anxiety. MDD 3. #90[Tablet] x 1 Route:ORAL Entered and Authorized by: Jai Mccarty DO Method used: Electronically to [facility] (retail) [address] [place] [address] [phone] Note to Pharmacy: Route: ORAL; RxID: [id number] 40 MG ORAL CAPSULE DELAYED RELEASE (OMEPRAZOLE) One tablet by mouth every day #30[Capsule] x 5 Route:ORAL Entered and Authorized by: Jai Mccarty DO Method used: Electronically to [facility] (retail) [address] [place] [address] [phone] Note to Pharmacy: Route: ORAL; RxID: [id number] 100 MG ORAL TABLET (LABETALOL HCL) take one tab po bid #60[Tablet] x 5 Entered and Authorized by: Jai Mccarty DO Method used: Electronically to [facility] (retail) [address] [place] [address] [phone] RxID: [id number] 20 MG ORAL TABLET (LISINOPRIL) One tablet by mouth every day #30[Tablet] x 5 Route:ORAL Entered and Authorized by: Jai Mccarty DO Method us ed: Electronically to [facility] (retail) [address] [place] [address] [phone] Ph: [phone] Note to Pharmacy: Route: ORAL; RxID: [id number] signed by Jai Mccarty DO on 12/25/2019 at 5:43 PM Name Value Range Interpretation Code Description Data Elizabeth rce(s) Supporting Document(s) ID Date Data Source [id number] 12/07/2019 09:22:00 AM EDT [facility] ([facility]) Name Value Range Interpretation Code Description Data Elizabeth rce(s) Supporting Document(s) Laboratory test finding (navigational concept) Laboratory test result [facility] ([facility]) Laboratory test finding (navigational concept) Laboratory test result [facility] ([facility]) ID Date Data Source [id number] 12/03/2019 08:14:00 AM EDT [facility] [...] Name Value Range Interpretation Code Description Data [facility] rce(s) Supporting Document(s) ID Date Data Source [id number] 12/03/2019 01:47:00 AM EDT [facility] Patient: KATHY BRADSHAWo yudi Report - [facility].VisitID: [id number] [place] [address] [phone], FRegistration Date/Time: 12/01/2019 02:00 Weight:115.6 kg (S). [...] 12/01/2019 06:35) Addenda for KATHY BRADSHAW VisitID: [id number] Date: 12/01/2019 12/01/2019 19:13[facility] called at 1800 and spoke with Radha Cheung RN to report that Kathy Bradshaw had not shown up to the ED. Pt was accepted at 0550 this am and requested to go POV to [facility]. A call was placed to Kathy Noriega contact number by this RN. Kathy was not home but a conversation with her son Manan took place at 1805. The nursing surgical supervisor instructed Manan to given his parents the phone number to contact the surgical supervisor, and he verbalized understanding. [facility] was contacted and given the information just stated.(Electronically signed by Francisca Joshi R.N. - 12/01/2019 19:13) 12/03/2019 1:35ON 12/01/2019 2345, I received a return call from Mr. Summer Bradshaw, Kathy Noriega . I informed him that [facility] called to inform that the patient had not shown up. Mr Bradshaw stated that they would like to go to [place] and that the patient is not being taken care. I informed Mr. Bradshaw at this time that they were supposed to be at [facility] and that facility was expecting the patient, and if that wasn't what they wanted they should have informed the provider ELINOR Nielsen when he informed the patient that she had been accepted at [facility]. Mr. Bradshaw said at this time that [...] rce(s) Supporting Document(s) ID Date Data Source [id number] 12/01/2019 07:15:00 PM EDT [facility] Patient: KATHY BRADSHAW Observatio n Report - [facility].VisitID: [id number] [place] [address] [phone], FRegistration Date/Time: 12/01/2019 02:00 Weight:115.6 kg (S). [...] 12/01/2019 06:35) Addenda for KATHY BRADSHAW VisitID: [id number] Date: 12/01/2019 12/01/2019 19:13[facility] called at 1800 and spoke with Radha Cheung RN to report that Kathy Bradshaw had not shown up to the ED. Pt was accepted at 0550 this am and requested to go POV to [facility]. A call was placed to Kathy Noriega contact number by this RN. Kathy was not home but a conversation with her son Manan took place at 1805. The nursing surgical supervisor instructed Manan to given his parents the phone number to contact the surgical supervisor, and he verbalized understanding. [facility] transfer [facility] was contacted and given the information just stated.(Electronically signed by Francisca Joshi R.N. - 12/01/2019 19:13) Name Value Range Interpretation Code Description Data Elizabeth rce(s) Supporting Document(s) ID Date Data Source [id number] 12/01/2019 09:11:00 AM EDT [facility] [...] rce(s) Supporting Document(s) ID Date Data Source [id number] 12/01/2019 07:02:00 AM EDT [facility] Patient: KATHY BRADSHAW Observatio n Report - [facility].VisitID: [id number] [place] [address] [phone], FRegistration Date/Time: 12/01/2019 02:00 Weight:115.6 kg (S). [...] rce(s) Supporting Document(s) ID Date Data Source [id number] 12/07/2019 09:23:00 AM EDT [facility] Name Value Range Interpretation Code Description Data Elizabeth rce(s) Supporting Document(s) [facility] ID Date Data Source [id number] 12/01/2019 02:55:00 AM EDT [facility] ([facility]) Name Value Range Interpretation Code Description Data Elizabeth rce(s) Supporting Document(s) Laboratory test finding (navigational concept) 4.04 uIU/mL 0 .36-3.74 Above high normal [facility] ([facility]) ID Date Data Source [id number] 12/01/2019 02:55:00 AM EDT [facility] ([facility]) Name Value Range Interpretation Code Description Data Elizabeth rce(s) Supporting Document(s) Partial Thromboplastin Time 25.8 s 21.4-30.2 [facility] ([facility]) ID Date Data Source [id number] 12/01/2019 02:55:00 AM EDT [facility] ([facility]) Name Value Range Interpretation Code Description Data Elizabeth rce(s) Supporting Document(s) Inr 1.05 0.87-1.06 [facility] ([facility]) Laboratory test finding (navigational concept) 10.9 s 9.2-11.6 [facility] ([facility]) ID Date Data Source [id number] 12/01/2019 02:55:00 AM EDT [facility] ([facility]) Name Value Range Interpretation Code Description Data Elizabeth rce(s) Supporting Document(s) Albumin 4.8 gm/dL 3.4-5.0 [facility] ([facility]) Total Protein 9.1 g/dL 6.4-8.2 [facility] ([facility]) Total Bilirubin 0.7 mg/dL 0.2-1.0 [facility] ([facility]) Alkaline phosphatase [Enzymatic activity/volume] in Serum or Plasma 125 U/L 46-116 Above high normal [facility] ([facility]) Ast 29 U/L 15-37 [facility] ([facility]) Alt 42 U/L 12-78 [facility] ([facility]) Glomerular Filtration Rate 55 mL/min [facility] ([facility]) <content>GFR IS CALCULATED IN mL/min/1.7 3m2</content>
<content> </content>
<content>NORMAL FUNCTION: >90</content>
<content>MILDLY DECREASED: 60- 89</content>
<content>MILDY TO MODERATELY DECREASED: 45-59 </content>
<content>MODERATELY TO SEVERELY DECREASED: 30-44</cont ent>
<content>SEVERELY DECREASED: 15- 29</content>
<content>RENAL FAILURE: <15</content>
<content></content> Anion Gap 8.0 mmol/L 5-12 [facility] ([facility]) Co2 32 mmol/L 21-32 [facility] ([facility]) Calcium [Mass/volume] in Serum or Plasma 9.5 mg/dL 8.5-10.1 [facility] ([facility]) Chloride 94 mmol/L 98-107 [facility] ([facility]) Sodium 134 mmol/L 136-145 Below low normal [facility] ( [facility]) Potassium 3.7 mmol/L 3.5-5.1 [facility] ([facility]) Creatinine [Mass/volume] in Serum or Plasma 1.1 mg/dL 0.6-1.0 Above high normal [facility] ([facility]) Glucose [Mass/volume] in Serum or Plasma 154 mg/dL 74-106 Above high normal [facility] ([facility]) Blood Urea Nitrogen 15 mg/dL 7-18 [facility] ([facility]) ID Date Data Source [id number] 12/01/2019 02:55:00 AM EDT [facility] ([facility]) Name Value Range Interpretation Code Description Data Elizabeth rce(s) Supporting Document(s) Magnesium 2.0 mg/dL 1.8-2.4 [facility] ([facility]) ID Date Data Source [id number] 12/01/2019 02:55:00 AM EDT [facility] ([facility]) Name Value Range Interpretation Code Description Data Elizabeth rce(s) Supporting Document(s) Lactic Acid 0.9 mmol/L 0.4-2.0 [facility] ([facility]) ID Date Data Source [id number] 12/01/2019 02:55:00 AM EDT [facility] ([facility]) Name Value Range Interpretation Code Description Data Elizabeth rce(s) Supporting Document(s) C Reactive Protein 17.1 mg/L 0.0-3.0 Above high normal [facility] ([facility]) ID Date Data Source [id number] 12/01/2019 02:55:00 AM EDT [facility] ([facility]) Name Value Range Interpretation Code Description Data Elizabeth rce(s) Supporting Document(s) Laboratory test finding (navigational concept) Laboratory test result 0-5 [facility] ([facility]) Erythrocytes [#/area] in Urine sediment by Microscopy high power field Laboratory test result 0-3 [facility] ([facility]) Laboratory test finding (navigational concept) Laboratory test result [facility] ([facility]) Laboratory test finding (navigational concept) Laboratory test result [facility] ([facility]) URINE CULTURE ORDERED ID Date Data Source [id number] 12/01/2019 02:55:00 AM EDT [facility] ([facility]) Name Value Range Interpretation Code Description Data Elizabeth rce(s) Supporting Document(s) Urine Bilirubin Laboratory test result [facility] ([facility]) Blood [Presence] in Urine by Visual Laboratory test result [facility] ([facility]) Laboratory test finding (navigational concept) Laboratory test result 0-1 [facility] ([facility]) Laboratory test finding (navigational concept) Laboratory test result [facility] ([facility]) Laboratory test finding (navigational concept) Laboratory test result [facility] ([facility]) PH,Urine 5.5 5.0-9.0 [facility] ([facility]) Laboratory test finding (navigational concept) Laboratory test r esult Above high normal [facility] ([facility]) Laboratory test finding (navigational concept) Laboratory test result [facility] ([facility]) Laboratory test finding (navigational concept) Laboratory test result [facility] ([facility]) Laboratory test finding (navigational concept) 1.020 1.001-1.035 [facility] ([facility]) Laboratory test finding (navigational concept) Laboratory test result [facility] ([facility]) Laboratory test finding (navigational concept) Laboratory test result [facility] ([facility]) ID Date Data Source [id number] 12/01/2019 02:55:00 AM EDT [facility] ([facility]) Name Value Range Interpretation Code Description Data Elizabeth rce(s) Supporting Document(s) [place] % 10.4 % 2.0-10.0 Above high normal [facility] ([facility]) Lymphocytes/100 leukocytes in Blood by Automated count 35.8 % 25. 0-50.0 [facility] ([facility]) Ig% 0.3 % 0.0-0.2 Above high normal [facility] ([facility]) Baso % 0.3 % 0.0-2.0 [facility] ([facility]) Laboratory test finding (navigational concept) 5.4 K/mm3 2.0-8.00 [facility] ([facility]) Eos % 2.7 % 0-5.0 [facility] ([facility]) Lymph # 3.8 K/mm3 1.0-5.0 [facility] ([facility]) [place] # 1.1 K/mm3 0.10-1.20 [facility] ([facility]) Ig# 0.0 K/mm3 0.0-0.2 [facility] ([facility]) Baso # 0.0 K/mm3 0.0-0.2 [facility] ([facility]) Eos # 0.3 K/mm3 0.0-0.5 [facility] ([facility]) Mean Platelet Volume 10.2 fl 9.0-13.0 MEDE NT ([facility]) Laboratory test finding (navigational concept) 50.5 % 50-80.0 [facility] ([facility]) Laboratory test finding (navigational concept) 365 K/mm3 172-450 [facility] ([facility]) Mean Corpuscular HGB Conc 32.9 g/dL 32.0-36.0 [facility] ([facility]) Mean Corpuscular Hemoglobin 30.3 pg 27.0-31.0 [facility] ([facility]) Red Cell Distribution Width 14.0 % 10.0-14.5 [facility] ([facility]) Laboratory test finding (navigational concept) 92.2 fl 80-96 [facility] ([facility]) Hematocrit [Volume Fraction] of Blood by Automated count 51.1 % 36.0-48.8 Above high normal [facility] ([facility]) Red Blood Count 5.54 M/mm3 4.00-5.50 Above high normal [facility] ([facility]) Hemoglobin 16.8 gm/dL 12.0-16.0 Above high normal [facility] ([facility]) White Blood Count 10.7 K/mm3 4.0-10.0 Above high normal [facility] ([facility]) ID Date Data Source [id number] 12/01/2019 02:55:00 AM EDT [facility] ([facility]) Name Value Range Interpretation Code Description Data Elizabeth rce(s) Supporting Document(s) Laboratory test finding (navigational concept) Laboratory test result [facility] ([facility]) ID Date Data Source [id number] 12/07/2019 09:22:00 AM EDT [facility] #1 Name Value Range Interpretation Code Description Data Elizabeth rce(s) Supporting Document(s) [facility] ID Date Data Source [id number] 12/01/2019 03:34:00 AM EDT [facility] TSYS[facility] [id number] Name Value Range Interpretation Code Description Data Elizabeth rce(s) Supporting Document(s) TSH 4.04 uIU/mL 0.36-3.74 H [facility] ID Date Data Source [id number] 12/01/2019 03:34:00 AM EDT [facility] TSYS[facility] [id number] Name Value Range Interpretation Code Description Data Elizabeth rce(s) Supporting Document(s) PARTIAL THROMBOPLASTIN TIME 25.8 SECONDS 21.4-30.2 [facility] ID Date Data Source [id number] 12/01/2019 03:34:00 AM EDT [facility] TSYSORDER [id number] Name Value Range Interpretation Code Description Data Elizabeth rce(s) Supporting Document(s) PROTHROMBIN TIME (PATIENT) 10.9 SECONDS 9.2-11.6 [facility] INR 1.05 0.87-1.06 [facility] ID Date Data Source [id number] 12/01/2019 03:34:00 AM EDT [facility] TSYSORDER [id number] Name Value Range Interpretation Code Description Data Elizabeth rce(s) Supporting Document(s) GLUCOSE 154 mg/dL 74-106 H [facility] BLOOD UREA NITROGEN 15 mg/dL 7-18 [facility] CREATININE 1.1 mg/dL 0.6-1.0 H [facility] SODIUM 134 mmol/L 136-145 L [facility] POTASSIUM 3.7 mmol/L 3.5-5.1 [facility] CHLORIDE 94 mmol/L 98-107 *L [facility] CO2 32 mmol/L 21-32 [facility] CALCIUM 9.5 mg/dL 8.5-10.1 [facility] ANION GAP 8.0 mmol/L 5-12 [facility] GLOMERULAR FILTRATION RATE 55 mL/min [facility] GFR IS CALCULATED IN mL/min/1.73m2 BRENDA L FUNCTION: >90MILDLY DECREASED: 60-89MILDY TO MODERATELY DECREASED: 45-59 MODERATELY TO SEVERELY DECREASED: 30-44SEVERELY DECREASED: 15-29RENAL FAILURE: <15 AST 29 U/L 15-37 [facility] ALT 42 U/L 12-78 [facility] ALKALINE PHOSPHATASE 125 U/L 46-116 H [facility] pital TOTAL BILIRUBIN 0.7 mg/dL 0.2-1.0 [facility] TOTAL PROTEIN 9.1 g/dl 6.4-8.2 *H [facility] ALBUMIN 4.8 gm/dL 3.4-5.0 [facility] ID Date Data Source [id number] 12/01/2019 03:34:00 AM EDT [facility] TSYSORDER [id number] Name Value Range Interpretation Code Description Data Elizabeth rce(s) Supporting Document(s) MAGNESIUM 2.0 mg/dL 1.8-2.4 [facility] ID Date Data Source [id number] 12/01/2019 03:26:00 AM [facility] TSYSORDER [id number] Name Value Range Interpretation Code Description Data Elizabeth rce(s) Supporting Document(s) LACTIC ACID 0.9 mmol/L 0.4-2.0 [facility] ID Date Data Source [id number] 12/01/2019 03:24:00 AM EDT [facility] TSYSORDER [id number] Name Value Range Interpretation Code Description Data Elizabeth rce(s) Supporting Document(s) C REACTIVE PROTEIN 17.1 mg/L 0.0-3.0 H [facility] ID Date Data Source [id number] 12/01/2019 03:20:00 AM EDT [facility] l TSYSORDER [id number] Name Value Range Interpretation Code Description Data Elizabeth rce(s) Supporting Document(s) URINE RBC 0-2 /hpf 0-3 [facility] URINE WBC 3-5 /hpf 0-5 [facility] URINE EPITHELIAL CELLS 2+ /hpf 0 [facility] ospital URINE BACTERIA 2+ NONE SEEN [facility] URINE CULTURE ORDERED ID Date Data Source [id number] 12/01/2019 03:06:00 AM T [facility] ital TSYSORDER [id number] Name Value Range Interpretation Code Description Data Elizabeth rce(s) Supporting Document(s) URINE COLOR. DARK YELLOW [facility] URINE APPEARANCE CLOUDY [facility] SPECIFIC GRAVITY,URINE 1.020 1.001-1.035 [facility] URINE LEUKOCYTE ESTERASE TRACE NEGATIVE [facility] URINE NITRATE NEGATIVE NEGATIVE [facility] PH,URINE 5.5 5.0-9.0 [facility] URINE PROTEIN 1+(30) mg/dL NEGATIVE H [facility] URINE GLUCOSE (UA) NEGATIVE mg/dL NEGATIVE [facility] URINE KETONE NEGATIVE mg/dL NEGATIVE [facility] al URINE UROBILINOGEN NORMAL(0.2-1) mg/dL 0-1 R [facility] URINE BILIRUBIN NEGATIVE NEGATIVE [facility] URINE BLOOD NEGATIVE NEGATIVE [facility] ID Date Data Source [id number] 12/01/2019 03:18:00 AM EDT [facility] l TSYSORDER [id number] Name Value Range Interpretation Code Description Data Elizabeth rce(s) Supporting Document(s) WHITE BLOOD COUNT 10.7 K/mm3 4.0-10.0 H [facility] RED BLOOD COUNT 5.54 M/mm3 4.00-5.50 H [facility] HEMOGLOBIN 16.8 gm/dL 12.0-16.0 H [facility] HEMATOCRIT 51.1 % 36.0-48.8 H [facility] MEAN CELL VOLUME 92.2 fl 80-96 [facility] MEAN CORPUSCULAR HEMOGLOBIN 30.3 pg 27.0-31.0 [facility] MEAN CORPUSCULAR HGB CONC 32.9 g/dl 32.0-36.0 [facility] RED CELL DISTRIBUTION WIDTH 14.0 % 10.0-14.5 [facility] PLATELET COUNT 365 K/mm3 172-450 [facility] MEAN PLATELET VOLUME 10.2 fl 9.0-13.0 [facility] pital GRAN % 50.5 % 50-80.0 [facility] IG% 0.3 % 0.0-0.2 H [facility] LYMPH % 35.8 % 25.0-50.0 [facility] MONO % 10.4 % 2.0-10.0 H [facility] EOS % 2.7 % 0-5.0 [facility] BASO % 0.3 % 0.0-2.0 [facility] GRAN # 5.4 K/mm3 2.0-8.00 [facility] IG# 0.0 K/mm3 0.0-0.2 [facility] LYMPH # 3.8 K/mm3 1.0-5.0 [facility] MONO # 1.1 K/mm3 0.10-1.20 [facility] EOS # 0.3 K/mm3 0.0-0.5 [facility] BASO # 0.0 K/mm3 0.0-0.2 [facility] ID Date Data Source [id number] 12/01/2019 02:55:00 AM EDT [facility] TSYSORDER [id number] Name Value Range Interpretation Code Description Data Elizabeth rce(s) Supporting Document(s) HCG URINE NEGATIVE NEGATIVE [facility] ID Date Data Source [id number] 11/22/2019 01:28:00 PM EDT [facility] ([facility]) Name Value Range Interpretation Code Description Data Elizabeth rce(s) Supporting Document(s) Troponin I [facility] <content>Troponin I Reference Interval f or [employer] [place] LOCI: </content>
<content> </content>
<content> 99th Percentile= [...] Myocardial Injury.</content>
<content></content> ID Date Data Source [id number] 11/22/2019 01:28:00 PM EDT [facility] ([facility]) Name Value Range Interpretation Code Description Data Elizabeth rce(s) Supporting Document(s) Lipase Laboratory test result 73-393 Above high normal [facility] ([facility]) ID Date Data Source [id number] 11/22/2019 01:28:00 PM EDT [facility] ([facility]) Name Value Range Interpretation Code Description Data Elizabeth rce(s) Supporting Document(s) Thyroid Stimulating Hormone Laboratory test result 0.358-3.740 Above high normal [facility] ([facility]) ID Date Data Source [id number] 11/22/2019 01:28:00 PM EDT [facility] ([facility]) Name Value Range Interpretation Code Description Data Elizabeth rce(s) Supporting Document(s) Free T4 Laboratory test result 0.76-1.46 [facility] ([facility]) ID Date Data Source [id number] 11/22/2019 01:27:00 PM EDT [facility] ([facility]) Name Value Range Interpretation Code Description Data Elizabeth rce(s) Supporting Document(s) CK-MB Value Mass Laboratory test result [facility] ([facility]) CPK Creatine Phosphokinase Laboratory test result 26-192 [facility] ([facility]) MB/CK Relative Index 0.93 [facility] ([facility]) <content>DIAGNOSIS CRITERIA </content>< br/><content> MMB ng/ml Relative Index (RI) </content>
<content>NON-AMI < or = 5 N/A </content>
<content>WEI ZONE > 5 < or = 4 </content>
<content>AMI > 5 > 4</content>
<content></content> ID Date Data Source [id number] 11/22/2019 01:27:00 PM EDT [facility] ([facility]) Name Value Range Interpretation Code Description Data Elizabeth rce(s) Supporting Document(s) Albumin Laboratory test result 3.2-5.2 [facility] ([facility]) Albumin/Globulin Ratio 1.19 1.00-1.93 [facility] ([facility]) Bilirubin,Direct Laboratory test result 0.0-0.2 [facility] ([facility]) Total Protein Laboratory test result 6.4-8.2 [facility] ([facility]) Bilirubin,Total Laboratory test result 0.2-1.0 [facility] ([facility]) Alkaline phosphatase [Enzymatic activity/volume] in Se rum or Plasma Laboratory test result 45-117 [facility] Alanine aminotransferase [Enzymatic activity/volume] i n Serum or Plasma Laboratory test result 12-78 [facility] ([facility]) Testing was performed on a lipemic speci men. Suggest recollection of a FASTING specimen for more accurate test results. Aspartate aminotransferase [Enzymatic activity/volume] in Serum or Plasma Laboratory test result 7-37 [facility] ([facility]) ID Date Data Source [id number] 11/22/2019 12:49:00 PM EDT [facility] ([facility]) Name Value Range Interpretation Code Description Data Elizabeth rce(s) Supporting Document(s) Laboratory test finding (navigational concept) Laboratory test result [facility] ([facility]) ID Date Data Source [id number] 11/22/2019 12:22:00 PM EDT [facility] ([facility]) Name Value Range Interpretation Code Description Data Elizabeth rce(s) Supporting Document(s) Platelet Count, Automated Laboratory test result 150-450 [facility] ([facility]) Mean Corpuscular HGB Conc Laboratory test result 32.0-36.5 [facility] ([facility]) Red Cell Distribution Width Laboratory test result 11.5-14.5 [facility] ([facility]) Neutrophils % Laboratory test result 36.0-66.0 [facility] ([facility]) [place] % Laboratory test result 0.0-5.0 Above high normal [facility] ([facility]) Lymphocytes/100 leukocytes in Blood by Automated count Labor atory test result 24.0-44.0 [facility] ([facility]) Eos % Laboratory test result 0.0-3.0 Above high normal [facility] ([facility]) Baso % Laboratory test result 0.0-1.0 [facility] ([facility]) Nucleated Red Blood Cell % Laboratory test result 0-0 [facility] ([facility]) Immature Granulocyte % Laboratory test result 0-3.0 [facility] ([facility]) Neutrophils # Laboratory test result 1.5-8.5 [facility] ([facility]) Lymph # Laboratory test result 1.5-5.0 [facility] ([facility]) Eos # Laboratory test result 0.0-0.5 [facility] ([facility]) [place] # Laboratory test result 0.0-0.8 [facility] ([facility]) Baso # Laboratory test result 0.0-0.2 [facility] ([facility]) Mean Corpuscular Volume Laboratory test result 80.0-96.0 [facility] ([facility]) Mean Corpuscular Hemoglobin Laboratory test result 27.0-33.0 [facility] ([facility]) Hematocrit [Volume Fraction] of Blood by Automated count Lab oratory test result 36.0-47.0 [facility] ([facility]) Hemoglobin Laboratory test result 12.0-15.5 [facility] ([facility]) Red Blood Count Laboratory test result 4.00-5.40 [facility] ([facility]) White Blood Count Laboratory test result 4.0-10.0 [facility] ([facility]) ID Date Data Source [id number] 11/22/2019 12:17:00 PM EDT [facility] ([facility]) Name Value Range Interpretation Code Description Data Elizabeth rce(s) Supporting Document(s) Laboratory test finding (navigational concept) Laboratory test result [facility] ([facility]) <content>QUANTITATIVE RESULT QU ALITATIVE INTERPRETATION </content>
<content> </content>
<content> <5.0 IU/L NEGATIVE </content>
<content> 5.0 - 25.0 IU/L INDETERMINATE </content>
<content> >25.0 IU/L POSITIVE</content>
<content></content> ID Date Data Source [id number] 11/22/2019 12:10:00 PM EDT [facility] ([facility]) Name Value Range Interpretation Code Description Data Elizabeth rce(s) Supporting Document(s) Creatinine [Mass/volume] in Serum or Plasma Laboratory test result 0. 6-1.3 [facility] ([facility]) Laboratory test finding (navigational concept) Laboratory test r esult 23.0-27.0 Above high normal [facility] ([facility]) Urea nitrogen [Mass/volume] in Serum or Plasma Laboratory test result 8-26 [facility] ([facility]) Laboratory test finding (navigational concept) Laboratory test r esult 98-109 Below low normal [facility] ([facility]) Laboratory test finding (navigational concept) Laboratory test resu lt 4.5-5.3 [facility] ([facility]) Laboratory test finding (navigational concept) Laboratory test resu lt 3.5-5.1 [facility] ([facility]) Laboratory test finding (navigational concept) Laboratory test r esult 136-145 Below low normal [facility] ([facility]) Laboratory test finding (navigational concept) Laboratory test r esult 38.0-51.0 [facility] ([facility]) Laboratory test finding (navigational concept) Laboratory test r esult 70-105 Above high normal [facility] ([facility]) ID Date Data Source [id number] 11/19/2019 11:32:07 AM EDT [facility] Measurements & CalculationsHeight: 70.80 inches 179.83 [...] (ER) or urgent care clinic? Yes - [facility] Emergency room (ER) or urgent care date reported today: 11/17/2019Have you seen another healthcare provider? 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 NoIntake [...] R DThyroid DisorderTotal Abdominal HysterectomyHyperlipidemiaSurgical History:Cholecystectomy-1998Total Abdominal Geqwmevmtpgf-2669aizad-5547qohqiazhvtf-2002teeth removed s78Sttivv History:Family History of ArthritisFH of AnxietyFamily History [...] during this visit, including review of any qkyo-stz-wqoagxe medications, herbal therapies, and/or supplements.Allergy ReviewAllergy List [...] Plan Problems:Added: R ight thoracic outlet syndrome (NBY75-B34.0)Assessed:Chronic tension-type headache, intractable (ICD-339.12) (SII27-E27.221) Assessment: OMT done w/reliefChest pain (ICD-786.50) (QJO91-K63.9) Assessment: OMT done w/reliefAssessment not SavedRight thoracic outlet syndrome (FHN23-H07.0): OMT done w/reliefMedications:VENLAFAXINE HCL 75 MG ORAL TABLETCYCLOBENZAPRINE HCL 10 MG ORAL TABLETNICODERM CQ 14 MG/24HR TRANSDERMAL PATCH 24 HOURNYSTATIN [id number] UNIT/ML MOUTH/THROAT SUSPENSIONLISINOPRIL 20 MG ORAL TABLETNEBULIZER/TUBING/MOUTHPIECE [...] (Moderate)Orders:Adult - Ofc Vst, EST, Level IV [CPT-[id number]] Medications:VENLAFAXINE HCL 75 MG ORAL TABLET (VENLAFAXINE HCL) one tab po BID #60[Tablet] x 1 Route:ORAL Entered and Authorized by: Jai Mccarty DO Method used: Electronically to [facility] (retail) [address] [place] [address] Note to Pharmacy: Route: ORAL; RxID: [id number] 10 MG ORAL TABLET (CYCLOBENZAPRINE HCL) one tab po TID prn muscle spasm #30[Tablet] x 1 Route:ORAL Entered and Authorized by: Jai Mccarty DO Method used: Electronically to [facility] (retail) [address] [place] [address] Note to Pharmacy: Route: ORAL; RxID: [id number] CYMBALTA 60 MG ORAL CAPSULE DELAYED RELEASE PARTICLES (DULOXETINE HCL) take one tab po daily #30[Capsule] x 1 Route:ORAL Entered and Authorized by: Jai Mccarty DO Method used: Electronically to [facility] (retail) [address] [place] [address] Fax: RxID: [id number] signed by Jai Mccarty DO on 11/19/2019 at 12:34 PM_ Name Value Range Interpretation Code Description Data Elizabeth rce(s) Supporting Document(s) ID Date Data Source [id number] 11/18/2019 01:43:00 PM EDT [facility] ([facility]) Name Value Range Interpretation Code Description Data Elizabeth rce(s) Supporting Document(s) Laboratory test finding (navigational concept) Laboratory test result [facility] ([facility]) A false negative result may occur [...] pathogens. DISCLAIMER: Testing was performed using the [employer] SARS-CoV-2 test. This test was developed and its performance characteristics determined by [employer]. This test has not been FDA cleared [...] or revoked sooner. ID Date Data Source [id number] 11/18/2019 12:35:00 AM EDT [facility] ([facility]) Name Value Range Interpretation Code Description Data Elizabeth rce(s) Supporting Document(s) Laboratory test finding (navigational concept) Laboratory test result 0-20 [facility] ([facility]) ID Date Data Source [id number] 11/18/2019 12:24:00 AM EDT [facility] ([facility]) Name Value Range Interpretation Code Description Data Elizabeth rce(s) Supporting Document(s) Laboratory test finding (navigational concept) Laboratory test r esult 0.00-0.30 Above high normal [facility] ([facility]) ID Date Data Source [id number] 11/17/2019 11:02:00 PM EDT [facility] ([facility]) Name Value Range Interpretation Code Description Data Elizabeth rce(s) Supporting Document(s) Calcium Level Laboratory test result 8.5-10.1 Below low normal [facility] ([facility]) Anion Gap Laboratory test result 8-16 [facility] ([facility]) Carbon Dioxide Level Laboratory test result 21-32 [facility] ([facility]) Chloride Level Laboratory test result 98-107 [facility] ([facility]) Potassium Serum Laboratory test result 3.5-5.1 [facility] ([facility]) Glomerular Filtration Rate Laboratory test result [facility] ([facility]) <content>Units are mL/min/1.73 m2 </con tent>
<content> </content>
<content>Chronic Kidney Disease Staging per NKF: </content>
<content> </content>
<content>Stage I & II GFR >=60 Normal to Mildly Decreased </content>
<content>Stage III GFR 30-59 Moderately Decreased </content>
<content>Stage IV GFR 15-29 Severely Decreased </content>
<content>Stage V GFR <15 Very Little GFR Left </content>
<content>ESRD GFR <15 on SOFT WORK WRAPPER EXAMINER</content>
<content></content> Sodium Level Laboratory test result 136-145 [facility] ([facility]) Creatinine For GFR Laboratory test result 0.55-1.30 [facility] ([facility]) Glucose, Fasting Laboratory test result 70-100 Above high normal [facility] ([facility]) Blood Urea Nitrogen Laboratory test result 7-18 [facility] ([facility]) ID Date Data Source [id number] 11/17/2019 11:02:00 PM EDT [facility] ([facility]) Name Value Range Interpretation Code Description Data Elizabeth rce(s) Supporting Document(s) Albumin/Globulin Ratio 1.27 1.00-1.93 [facility] ([facility]) Albumin Laboratory test result 3.2-5.2 [facility] ([facility]) Total Protein Laboratory test result 6.4-8.2 [facility] ([facility]) Bilirubin,Direct Laboratory test result 0.0-0.2 [facility] ([facility]) Alkaline phosphatase [Enzymatic activity/volume] in Se rum or Plasma Laboratory test result 45-117 [facility] ([facility]) Alanine aminotransferase [Enzymatic activity/volume] i n Serum or Plasma Laboratory test result 12-78 [facility] ([facility]) Bilirubin,Total Laboratory test result 0.2-1.0 [facility] ([facility]) Aspartate aminotransferase [Enzymatic activity/volume] in Serum or Plasma Laboratory test result 7-37 [facility] ([facility]) ID Date Data Source [id number] 11/17/2019 10:37:00 PM EDT [facility] ([facility]) Name Value Range Interpretation Code Description Data Elizabeth rce(s) Supporting Document(s) White Blood Count Laboratory test result 4.0-10.0 [facility] ([facility]) Red Blood Count Laboratory test result 4.00-5.40 [facility] ([facility]) Hemoglobin Laboratory test result 12.0-15.5 [facility] ([facility]) Hematocrit [Volume Fraction] of Blood by Automated count Lab oratory test result 36.0-47.0 [facility] ([facility] Mean Corpuscular Volume Laboratory test result 80.0-96.0 [facility] ([facility]) Mean Corpuscular Hemoglobin Laboratory test result 27.0-33.0 [facility] ([facility]) Mean Corpuscular HGB Conc Laboratory test result 32.0-36.5 [facility] ([facility]) Red Cell Distribution Width Laboratory test result 11.5-14.5 [facility] ([facility]) Nucleated Red Blood Cell % Laboratory test result 0-0 [facility] ([facility]) Platelet Count, Automated Laboratory test result 150-450 [facility] [facility] ID Date Data Source [id number] 11/17/2019 10:21:00 PM EDT [facility] ([facility]) Name Value Range Interpretation Code Description Data Elizabeth rce(s) Supporting Document(s) Laboratory test finding (navigational concept) Laboratory test result [facility] ([facility]) This lab was ordered by [facility] a nd reported by [facility]. ID Date Data Source [id number] 11/12/2019 10:20:00 AM EDT [facility] Name Value Range Interpretation Code Description Data Elizabeth rce(s) Supporting Document(s) BG FASTING 180 mg/dL 70-100 H [facility] T3, TOTAL < 10.0 NG/DL ng/dL 60.0-181.0 L [facility] T4, FREE 0.78 ng/dL 0.76-1.46 N [facility] TSH 66.200 microintl units/mL 0.358-3.740 [facility]25 TOT 6.0 ng/mL 30.0-100.0 L [facility] ID Date Data Source [id number] 11/12/2019 10:20:00 AM EDT [facility] Name Value Range Interpretation Code Description Data Elizabeth rce(s) Supporting Document(s) HCT 53.6 % 36.0-47.0 H [facility] HGB 18.3 g/dL 12.0-15.5 H [facility] MCH 34.1 G/DL pg 32.0-36.5 N [facility] MCHC 30.8 PG % 27.0-33.0 N [facility] PLATELETS 384 10 10*3/mm3 150-450 N [facility] RBC 5.94 10 10*6/mm3 4.00-5.40 H [facility] RDW 14.0 % 11.5-14.5 N [facility] WBC TOTAL 15.6 4.0-10.0 H [facility] ID Date Data Source [id number] 11/12/2019 10:20:00 AM EDT [facility] Name Value Range Interpretation Code Description Data Elizabeth rce(s) Supporting Document(s) HGBA1C 8.3 % N [facility] ID Date Data Source [id number] 11/12/2019 09:07:15 AM EDT [facility] Measurements & CalculationsHeight: 70.80 inches 179.83 [...] R DThyroid DisorderTotal Abdominal HysterectomyHyperlipidemiaSurgical History:Cholecystectomy-1998Total Abdominal Rgusbgvoggce-1217tjypq-5414qmyyeijefod-2002teeth removed k06Idbloh History:Family History of ArthritisFH of AnxietyFamily History [...] it is bleeding constantly. pt went to [facility] [place] and pt ended up moving because of [...] during this visit, including review of any uzcq-lyp-ufcqmog medications, herbal therapies, and/or supplements.Allergy ReviewAllergy List was reviewed and/or updated during this visit.Adult Preventive CareLabs/Meds/Other Counseling-Nutrition and Physical Activity:BMI Interpretation: Obese (12/25/2018) Counseling: Done (11/12/2019) Physical Activity: Done (11/12/2019)Care Management Plan Transitions of CareInboundRate Your HealthIn general, would you say your health is? 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) (ICD10- L40.0)Chronic tension-type headache, intractable (ICD-339.12) (ICD10- G44.221)Stomatitis (ICD-528.00) (YMO10-P57.1) Assessment: refer to pulmChest pain (ICD-786.50) (URK43-Z10.9) Assessment: OMT doneAssessment not SavedOcclusion and stenosis of bilateral carotid arteries (GJR09-T06.23): Medications:NICODERM CQ 14 MG/24HR TRANSDERMAL PATCH 24 HOURNYSTATIN 288131 UNIT/ML MOUTH/THROAT SUSPENSIONLISINOPRIL 20 MG ORAL TABLETNEBULIZER/TUBING/MOUT [...] (Moderate)Orders:Adult - Ofc Vst, EST, Level IV [CPT-80021] COMP METABOLIC PANEL [CPT-29665] CBC W/DIFF [CPT-47881] HgBA1c [CPT-13203] TSH [CPT-08817] T-4 free [CPT-26400] Vitamin D 250H Unspecified [CPT-37071] T3 Total [CPT-80955] Thyroid Peroxidase Antibody [CPT_86376] Thyroglobulin antibody [CPT-50746] 86462 - Venipuncture [CPT-59050] Medications:LEVOTHYROXINE SODIUM 200 MCG ORAL TABLET (LEVOTHYROXINE SODIUM) take one tab po daily on an empty stomach #30[Tablet] x 5 Route:ORAL Entered and Authorized by: Jai Mccarty DO Method used: Electronically to [facility] (retail) [address] [place] [address] Note to Pharmacy: Route: ORAL; RxID: [id number] 15 MG ORAL TABLET (MELOXICAM) take one tab po daily #30[Tablet] x 3 Route:ORAL Entered and Authorized by: Jai Mccarty DO Method used: Electronically to [facility] (retail) [address] [place] [address] Note to Pharmacy: Route: ORAL; RxID: [id number] 5 MG ORAL TABLET (GLYBURIDE) take one tab po daily with food #30[Tablet] x 5 Route:ORAL Entered and Authorized by: Jai Mccarty DO Method used: Electronically to [facility] (retail) [address] [place] [address] Note to Pharmacy: Route: ORAL; RxID: [id number] 600 MG ORAL TABLET (GABAPENTIN) take 2 tab po tid #120[Tablet] x 5 Route:ORAL Entered and Authorized by: Jai Mccarty DO Method used: Electronically to [facility] (retail) [address] [place] [address] Note to Pharmacy: Route: ORAL; RxID: [id number] 50 MCG/ACT NASAL SUSPENSION (FLUTICASONE PROPIONATE) one spray in each nostril daily #0 x 0 Route:NASAL Entered and Authorized by: Jai Mccarty DO Method used: Print then Give to Patient Note to Pharmacy: Route: NASAL; RxID: [id number] 40 MG ORAL CAPSULE DELAYED RELEASE (OMEPRAZOLE) One tablet by mouth every day #30[Capsule] x 5 Route:ORAL Entered and Authorized by: Jai Mccarty DO Method used: Electronically to [facility] (retail) [address] [place] [address] Note to Pharmacy: Route: ORAL; RxID: [id number] 10 MG ORAL TABLET (HYDROXYZINE HCL) One po q8h prn anxiety. MDD 3. #30[Tablet] x 0 Route:ORAL Entered and Authorized by: Jai Mccarty DO Method used: Electronically to [facility] (retail) [address] [place] [address] Fax: Note to Pharmacy: Route: ORAL; RxID: [id number] 60 MG ORAL CAPSULE DELAYED RELEASE PARTICLES (DULOXETINE HCL) take one tab po daily #30[Capsule] x 1 Route:ORAL Entered and Authorized by: Jai Mccarty DO Method used: Electronically to [facility] (retail) [address] [place] [address] Note to Pharmacy: Route: ORAL; RxID: [id number] [id number] 10 MG ORAL TABLET (BUSPIRONE HCL) One po q12h prn anxiety. MDD 2. #60[Tablet] x 1 Route:ORAL Entered and Authorized by: Jai Mccarty DO Method used: Electronically to [facility] (retail) [address] [place] [address] Note to Pharmacy: Route: ORAL; RxID: [id number]/TUBING/MOUTHPIECE KIT (RESPIRATORY THERAPY SUPPLIES) UAD. #1[Kit] x 0 Entered and Authorized by: Jai Mccarty DO Method used: Electronically to [facility] (retail) [address] [place] [address] RxID: [id number] In-House Blood TestsDate/Time Collected: November 12, 2019 [...] Derived from formula 2.41 m2 2.41 m2 [facility] ([facility]) Body mass index (BMI) [Ratio] 38.4 kg/m2 38.4 k g/m2 [facility] ([facility]) Body height 71 [in_i] 71 [in_i] [facility] ([facility]) 5'11" Body weight 124.740 kg 124.740 kg [facility] ([facility]) Body weight 275.00 [lb_av] 275.00 [lb_av] [facility] ([facility]) Oxygen saturation in Arterial blood by Pulse oximetry 90 % 90 % [facility] ([facility]) Respiratory rate 18 /min 18 /min [facility] ( [facility]) Body temperature 98.1 [degF] 98.1 [degF] [facility] ([facility]) Heart rate 80 /min 80 /min [facility] ([facility]) Diastolic blood pressure 72 mm[Hg] 72 mm[Hg] [facility] ([facility]) Systolic blood pressure 130 mm[Hg] 130 mm[Hg] [facility] ([facility]) Body height 71 [in_i] 71 [in_i] [facility] ([facility]) Oxygen saturation in Arterial blood by Pulse oximetry 96 % 96 % [facility] Heart rate 82 /min 82 /min [facility] Diastolic blood pressure 78 mm[Hg] 78 mm[Hg] [facility] ([facility]) Systolic blood pressure 122 mm[Hg] 122 mm[Hg] [facility] ([facility]) Body height 71 [in_i] 71 [in_i] [facility] ([facility], ) 5'11" Oxygen saturation in Arterial blood by Pulse oximetry 96 % 96 % [facility] ([facility], ) Heart rate 82 /min 82 /min [facility] ([facility], ) Diastolic blood pressure 78 mm[Hg] 78 mm[Hg] [facility] ([facility], ) Systolic blood pressure 122 mm[Hg] 122 mm[Hg] [facility] ([facility], ) Body weight 122.472 kg 122.472 kg [facility] ([facility], ) Body mass index (BMI) [Ratio] 37.7 kg/m2 37.7 k g/m2 [facility] ([facility], ) Body weight 270.00 [lb_av] 270.00 [lb_av] [facility] T ([facility], ) Body height 71 [in_i] 71 [in_i] [facility] ([facility], ) 5'11" ID Date Data Source [id number] 06/29/2020 10:24:00 AM EST [facility] Name Value Range Interpretation Code Description Data Source(s) Weight Measurement Method [address] [facility] Weight 4400 4400 [facility] pital Temperature Source 7 7 [facility] Temperature 97.1 97.1 [facility] Respiratory Effort 1 1 [facility] Respiratory Rate 16 16 [facility] Pulse Assessment Method 4 4 G [facility] Pulse Rate 86 86 [facility]ital [facility] 71 71 [facility] 111/78 111/[address] [facility] ID Date Data Source [id number] 02/26/2020 06:00:00 AM EDT [facility] Name Value Range Interpretation Code Description Data Source(s) Weight 13002 80867 [facility] pital Temperature Source 7 7 [facility] Temperature 97.1 97.1 [facility] Respiratory Effort 1 1 [facility] Respiratory Rate 18 18 [facility] Pulse Assessment Method 4 4 G [facility] Pulse [facility] 78 78 [facility] 126/92 126/[address] [facility] Weight 90022 42018 [facility] pital Temperature Source 7 7 [facility] Temperature 97.1 97.1 [facility] Respiratory Effort 1 1 [facility] Respiratory Rate 18 18 [facility] Pulse Assessment Method 4 4 G [facility] Pulse Rate 78 78 [facility] 126/92 126/[address] [facility] Weight 69405 32198 [facility] pital Temperature Source 7 7 [facility] Temperature 97.1 97.1 [facility] Respiratory Effort 1 1 [facility] Respiratory Rate [address] [facility] Pulse Assessment Method 4 4 G [facility] Pulse Rate 90 90 [facility] pital Blood Pressure 175/114 175/[address] [facility] Weight 76032 22170 [facility] pital Temperature Source 7 7 [facility] Temperature 97.1 97.1 [facility] Respiratory Effort 1 1 [facility] Respiratory Rate 18 18 [facility] Pulse Assessment Method 4 4 G [facility] Pulse Rate 90 90 [facility] pital Blood Pressure 175/114 175/[address] [facility] Weight 67002 94235 [facility] pital Temperature Source 7 7 [facility] Temperature 97.1 97.1 [facility] Respiratory Effort 1 1 [facility] Respiratory Rate 18 18 [facility] Pulse Assessment Method 4 4 G [facility] Pulse Rate 90 90 [facility] 175/114 175/[address] [facility] Weight 74897 36818 [facility] pital Temperature Source 7 7 [facility] Temperature 97.1 97.1 [facility] Respiratory Effort 1 1 [facility] Respiratory Rate 18 18 [facility] Pulse Assessment Method 4 4 G [facility] Pulse Rate 90 90 [facility] pital Blood Pressure 175/114 175/[address] [facility]
== END 2020-08-26 04:33 | disposition left against medical advice (07) ==
LOC: M ED 21:41
DX: N17.9 Acute kidney failure, unspecified (principal); J45.909 Unspecified asthma, uncomplicated; E11.9 Type 2 diabetes mellitus without complications; K21.9 Gastro-esophageal reflux disease without esophagitis; F17.210 Nicotine dependence, cigarettes, uncomplicated; F12.20 Cannabis dependence, uncomplicated
CPT/HCPCS: 74176; 80048; 80076; 83690; 85025; 93041; 96361; 96374; 99285; J3010

== ENCOUNTER 2020-09-25 21:04 | Emergency (ER) | payer OTHER ==
[~2020-09-25] VITALS: Ht 180.3 cm; Wt 120.1 kg
[~2020-09-25 21:04] MED LIST changes: -LABE100T36 PO; +LABE100T5 PO
[2020-09-25] MEDS ORDERED: NS 1,000 ML IV ONE (22:25)
[2020-09-25] MEDS ORDERED: MORPHINE 4 MG/ML 1ML VIAL/SYRINGE (J2270) IV ONE (22:25)
[2020-09-25 23:21] LABS: BASO # 0.1 10^3/uL (0.0-0.2); BASO % 0.7 % (0.0-1.0); EOS # 0.5 10^3/uL (0.0-0.5); EOS % 4.4 % (0.0-3.0); HEMATOCRIT 51.8 % (36.0-47.0); HEMOGLOBIN 16.1 g/dl (12.0-15.5); LYMPH # 3.2 10^3/uL (1.5-5.0); LYMPH % 26.5 % (24.0-44.0); MEAN CORPUSCULAR HEMOGLOBIN 26.3 pg (27.0-33.0); MEAN CORPUSCULAR HGB CONC 31.1 g/dl (32.0-36.5); MEAN CORPUSCULAR VOLUME 84.6 fl (80.0-96.0); MONO % 8.4 % (2.0-8.0); NEUTROPHILS # 7.3 10^3/uL (1.5-8.5); NEUTROPHILS % 59.7 % (36.0-66.0); PLATELET COUNT, AUTOMATED 356 10^3/uL (150-450); RED BLOOD COUNT 6.12 10^6/uL (4.00-5.40); WHITE BLOOD COUNT 12.2 10^3/uL (4.0-10.0)
[2020-09-25 23:31] LABS: INR 0.95; PROTHROMBIN TIME 12.9 SECONDS (12.5-14.3)
[2020-09-25 23:32] LABS: PARTIAL THROMBOPLASTIN TIME 31.5 SECONDS (24.2-38.5)
[2020-09-26] MEDS ORDERED: ISOVUE-370 76% 100ML VIAL As Ordered ONE (00:13)
--- NOTE | 2020-09-26 01:03 | REPVR ---
PROCEDURE INFORMATION: Exam: CT Abdomen And Pelvis With Contrast Exam date and time: 09/26/2020 12:27 AM Age: 40 years old Clinical indication: Abdominal pain; Additional info: Gi bleed, lower abd pain TECHNIQUE: Imaging protocol: Computed tomography of the abdomen and pelvis with contrast. Axial, coronal and sagittal reformatted images were created and reviewed. Radiation optimization: All CT scans at this facility use at least one of these dose optimization techniques: automated exposure control; mA and/or kV adjustment per patient size (includes targeted exams where dose is matched to clinical indication); or iterative reconstruction. Contrast material: ISO 370; Contrast volume: 100 ml; Contrast route: INTRAVENOUS (IV); COMPARISON: CT ABD PELVIS W/O CONTRAST 08/26/2020 12:08 AM FINDINGS: Lungs: Mild peribronchial thickening, suggestive of airway inflammation. Liver: Mild hepatomegaly. Gallbladder and bile ducts: Status post cholecystectomy. No biliary ductal dilatation. Pancreas: Unremarkable. Spleen: Unremarkable. Adrenal glands: Normal. No mass. Kidneys and ureters: No mass. No radiodense calculi. No hydronephrosis. Stomach and bowel: Scattered colonic diverticula without evidence of diverticulitis. Moderate amount of gas and stool in the colon. No obstruction. No bowel wall thickening. No pneumatosis. Appendix: Normal. Intraperitoneal space: No free fluid. No organized fluid collection. No free air. Vasculature: Mild atherosclerotic disease. No aneurysm or dissection. Lymph nodes: No pathologically enlarged lymph nodes. Urinary bladder: Unremarkable as visualized. Reproductive: Status post hysterectomy. Bones/joints: No acute osseous abnormality. Mild degenerative changes. Soft tissues: Fat containing umbilical hernia. IMPRESSION: 1. No CT evidence of acute intra-abdominal or pelvic pathology. 2. Additional findings, as above. Electronically signed by: Melquiades Nunez On 09/26/2020 01:03:39 AM
--- NOTE | 2020-09-26 01:05 | REPVR ---
PROCEDURE INFORMATION: Exam: CT Neck With Contrast Exam date and time: 09/26/2020 12:27 AM Age: 40 years old Clinical indication: Neck pain; Additional info: Pain, has been sticking finger in trach stoma TECHNIQUE: Imaging protocol: Computed tomography images of the neck with intravenous contrast. Radiation optimization: All CT scans at this facility use at least one of these dose optimization techniques: automated exposure control; mA and/or kV adjustment per patient size (includes targeted exams where dose is matched to clinical indication); or iterative reconstruction. Contrast material: ISO 370; Contrast volume: 100 ml; Contrast route: INTRAVENOUS (IV); COMPARISON: No relevant prior studies available. FINDINGS: Paranasal sinuses: Right and to a much lesser degree left maxillary sinus mucosal thickening. Nasopharynx: Unremarkable. Oropharynx: Unremarkable. No significant tonsillar enlargement. Hypopharynx: Unremarkable. Larynx: Tracheostomy stoma with previous laryngectomy. Retropharyngeal space: Unremarkable. Submandibular/Parotid glands: Atrophic or absent submandibular glands. Thyroid: The thyroid gland is absent. Lymph nodes: Unremarkable. No lymphadenopathy. Trachea: Visualized trachea is unremarkable. Lungs: Unremarkable as visualized. Bones/joints: Congenital fusion of C7-T1. There are anterior and posterior defects in the C1 ring which are congenital. Soft tissues: Unremarkable. No significant soft tissue swelling. IMPRESSION: 1. Status post laryngectomy with tracheostomy stoma. The thyroid lobes are absent. 2. Absent or atrophic submandibular glands. 3. Right maxillary and to a much lesser degree left maxillary sinus disease. 4. 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 5. Otherwise negative CT neck. Electronically signed by: Chang Hess On 09/26/2020 01:06:09 AM
--- NOTE | 2020-09-26 01:07 | REPVR ---
PROCEDURE INFORMATION: Exam: CT Chest With Contrast; Diagnostic Exam date and time: 09/26/2020 12:27 AM Age: 40 years old Clinical indication: Chest pain; Additional info: Pain, has been sticking finger in trach stoma, SOB TECHNIQUE: Imaging protocol: Diagnostic computed tomography of the chest with contrast. Axial, coronal and sagittal reformatted images were created and reviewed. Radiation optimization: All CT scans at this facility use at least one of these dose optimization techniques: automated exposure control; mA and/or kV adjustment per patient size (includes targeted exams where dose is matched to clinical indication); or iterative reconstruction. Contrast material: ISO 370; Contrast volume: 100 ml; Contrast route: INTRAVENOUS (IV); COMPARISON: CT ANGIO CHEST 06/23/2020 9:11 PM FINDINGS: Lungs: Mild peribronchial thickening, suggestive of airway inflammation. No consolidation. Pleural spaces: Biapical pleural thickening. No pleural effusion. No pneumothorax. Heart: Unremarkable. No cardiomegaly. No pericardial effusion. Aorta: Unremarkable. No aneurysm or dissection. Lymph nodes: No pathologically enlarged lymph nodes. Bones/joints: No acute osseous abnormality. Mild degenerative changes. Soft tissues: Unremarkable. IMPRESSION: 1. Mild peribronchial thickening, suggestive of airway inflammation. 2. Additional findings, as above. Electronically signed by: Melquiades Nunez On 09/26/2020 01:07:43 AM
[2020-09-26] MEDS ORDERED: ANUS25SU PR (01:35)
[2020-09-26 01:44] VITALS: BP 123/76
== END 2020-09-26 01:53 | disposition home or self-care (01) ==
LOC: M ED 21:04
DX: K92.1 Melena (principal); K94.09 Other complications of colostomy; I10 Essential (primary) hypertension; J44.9 Chronic obstructive pulmonary disease, unspecified; J45.909 Unspecified asthma, uncomplicated; E11.9 Type 2 diabetes mellitus without complications; E03.9 Hypothyroidism, unspecified; E78.00 Pure hypercholesterolemia, unspecified; F33.9 Major depressive disorder, recurrent, unspecified; F41.9 Anxiety disorder, unspecified; F42.9 Obsessive-compulsive disorder, unspecified; K21.9 Gastro-esophageal reflux disease without esophagitis; Z79.899 Other long term (current) drug therapy; Z79.890 Hormone replacement therapy; Z88.1 Allergy status to other antibiotic agents; Z88.2 Allergy status to sulfonamides; Z88.8 Allergy status to other drugs, medicaments and biological substances
CPT/HCPCS: 70491; 71260; 74177; 80047; 84702; 85025; 85610; 85730; 86850; 86900; 86901; 96361; 96374; 99284; J2270; Q9967

== ENCOUNTER 2020-10-04 01:09 | Emergency (ER) | payer OTHER ==
[~2020-10-04] VITALS: Ht 180.3 cm; Wt 120.0 kg
[~2020-10-04 01:09] MED LIST changes: +ANUS25SU PR
[2020-10-04 01:10] VITALS: BP 139/89
[2020-10-04] MEDS ORDERED: CYCL-707 PO (01:34)
== END 2020-10-04 03:02 | disposition left against medical advice (07) ==
LOC: M ED 01:09
DX: Z53.21 Procedure and treatment not carried out due to patient leaving prior to being seen by health care provider (principal)

== ENCOUNTER 2020-10-04 04:41 | Emergency (ER) | payer OTHER ==
[~2020-10-04] VITALS: Ht 180.3 cm; Wt 120.0 kg
[~2020-10-04 04:41] MED LIST changes: +CYCL-707 PO
[2020-10-04 09:15] VITALS: BP 140/88
== END 2020-10-04 09:29 | disposition home or self-care (01) ==
LOC: M ED 04:41
DX: K94.01 Colostomy hemorrhage (principal); E11.9 Type 2 diabetes mellitus without complications; J44.9 Chronic obstructive pulmonary disease, unspecified; J45.909 Unspecified asthma, uncomplicated; E03.9 Hypothyroidism, unspecified; K64.9 Unspecified hemorrhoids; Z86.73 Personal history of transient ischemic attack (TIA), and cerebral infarction without residual deficits; Z85.01 Personal history of malignant neoplasm of esophagus; Z79.899 Other long term (current) drug therapy; Z79.890 Hormone replacement therapy; Z88.1 Allergy status to other antibiotic agents; Z88.2 Allergy status to sulfonamides; Z88.8 Allergy status to other drugs, medicaments and biological substances; F17.210 Nicotine dependence, cigarettes, uncomplicated

== ENCOUNTER 2020-10-10 12:50 | Emergency (ER) | payer OTHER ==
[~2020-10-10] VITALS: Ht 180.3 cm; Wt 119.8 kg
[2020-10-10] MEDS ORDERED: hydrOXYzine 10 MG TAB PO STA (14:42)
--- NOTE | 2020-10-10 14:52 | REP ---
INDICATION: bilateral lower lobe rhonchi, sputum production. COMPARISON: Portable chest dated 06/23/2020, portable chest dated 02/09/2020, chest CT dated 09/26/2020. TECHNIQUE: Portable AP chest with the patient sitting. FINDINGS: There is focal increased density inferomedially in the right lung as an interval change. This is nonspecific and could be artifact from patient positioning and radiographic penetration or could represent a right lower lobe infiltrate. There are no pleural effusions. Cardiac size is normal. The william, mediastinum, and skeletal structures are unremarkable. IMPRESSION: Increased radiodensity inferior rim medially in the right lung, nonspecific, infiltrate versus artifact as discussed above. <Electronically signed by Wilbur Moise > 10/10/20 0333
[2020-10-10 15:12] LABS: BASO # 0.1 10^3/uL (0.0-0.2); BASO % 0.9 % (0.0-1.0); EOS # 0.6 10^3/uL (0.0-0.5); EOS % 4.2 % (0.0-3.0); HEMATOCRIT 53.5 % (36.0-47.0); LYMPH # 3.8 10^3/uL (1.5-5.0); LYMPH % 26.7 % (24.0-44.0); MEAN CORPUSCULAR HEMOGLOBIN 27.2 pg (27.0-33.0); MEAN CORPUSCULAR HGB CONC 31.8 g/dl (32.0-36.5); MEAN CORPUSCULAR VOLUME 85.7 fl (80.0-96.0); MONO # 1.1 10^3/uL (0.0-0.8); MONO % 7.9 % (2.0-8.0); NEUTROPHILS # 8.4 10^3/uL (1.5-8.5); NEUTROPHILS % 59.7 % (36.0-66.0); PLATELET COUNT, AUTOMATED 433 10^3/uL (150-450); RED BLOOD COUNT 6.24 10^6/uL (4.00-5.40); WHITE BLOOD COUNT 14.1 10^3/uL (4.0-10.0)
[2020-10-10 17:00] VITALS: BP 130/82
== END 2020-10-10 17:16 | disposition home or self-care (01) ==
LOC: EEVIPCON 12:50 → M ED 12:50
DX: R09.3 Abnormal sputum (principal); Z91.19 Patient's noncompliance with other medical treatment and regimen; E11.9 Type 2 diabetes mellitus without complications; J45.909 Unspecified asthma, uncomplicated; E78.5 Hyperlipidemia, unspecified; K21.9 Gastro-esophageal reflux disease without esophagitis; E03.9 Hypothyroidism, unspecified; F41.0 Panic disorder [episodic paroxysmal anxiety]; Z79.899 Other long term (current) drug therapy; Z79.890 Hormone replacement therapy; Z88.0 Allergy status to penicillin; Z88.2 Allergy status to sulfonamides; Z88.8 Allergy status to other drugs, medicaments and biological substances; F17.210 Nicotine dependence, cigarettes, uncomplicated

== ENCOUNTER 2021-01-03 14:21 | Inpatient (IN) | payer OTHER ==
[~2021-01-03] VITALS: Ht 180.3 cm; Wt 119.7 kg
[~2021-01-03 14:21] MED LIST changes: -DOXY100C37 PO; +DOXY1CAP62 PO; +GABA-283 PO; -GABA-845 PO; +OMEP40CA4 PO; -OMEP40CA97 PO
[2021-01-03 15:28] LABS: BASO # 0.1 10^3/uL (0.0-0.2); BASO % 0.8 % (0.0-1.0); EOS # 0.2 10^3/uL (0.0-0.5); EOS % 1.5 % (0.0-3.0); HEMATOCRIT 55.1 % (36.0-47.0); HEMOGLOBIN 17.6 g/dl (12.0-15.5); LYMPH # 2.6 10^3/uL (1.5-5.0); LYMPH % 20.1 % (24.0-44.0); MEAN CORPUSCULAR HEMOGLOBIN 28.9 pg (27.0-33.0); MEAN CORPUSCULAR HGB CONC 31.9 g/dl (32.0-36.5); MEAN CORPUSCULAR VOLUME 90.6 fl (80.0-96.0); MONO # 1.3 10^3/uL (0.0-0.8); MONO % 10.2 % (2.0-8.0); NEUTROPHILS # 8.6 10^3/uL (1.5-8.5); NEUTROPHILS % 66.5 % (36.0-66.0); PLATELET COUNT, AUTOMATED 474 10^3/uL (150-450); RED BLOOD COUNT 6.08 10^6/uL (4.00-5.40); WHITE BLOOD COUNT 12.9 10^3/uL (4.0-10.0)
[2021-01-03] MEDS ORDERED: ACET1TAB55 PO (15:33)
[2021-01-03 15:55] LABS: ALT/SGPT 35 U/L (12-78); BILIRUBIN,DIRECT < 0.1 MG/DL (0.0-0.2); BILIRUBIN,TOTAL 0.5 MG/DL (0.2-1.0); BLOOD UREA NITROGEN 16 MG/DL (7-18); CALCIUM LEVEL 11.2 MG/DL (8.5-10.1); CARBON DIOXIDE LEVEL 27 MEQ/L (21-32); CHLORIDE LEVEL 93 MEQ/L (98-107); CREATININE FOR GFR 1.06 MG/DL (0.55-1.30); GLOMERULAR FILTRATION RATE > 60.0 (>58); GLUCOSE, FASTING 280 MG/DL (70-100); LIPASE 117 U/L (73-393); POTASSIUM SERUM 3.7 MEQ/L (3.5-5.1); SODIUM LEVEL 129 MEQ/L (136-145); TOTAL PROTEIN 8.5 GM/DL (6.4-8.2)
[2021-01-03] MEDS ORDERED: ISOVUE-370 76% 100ML VIAL As Ordered ONE (16:47)
[2021-01-03 17:12] LABS: CK-MB VALUE MASS < 1.0 NG/ML (<3.6); CPK CREATINE PHOSPHOKINASE 63 U/L (26-192); MB/CK RELATIVE INDEX 1.59 (< OR =4); TROPONIN I 0.18 NG/ML (< 0.10)
[2021-01-03 18:30] LABS: INR 0.98; PROTHROMBIN TIME 13.2 SECONDS (12.5-14.3)
[2021-01-03 18:31] LABS: PARTIAL THROMBOPLASTIN TIME 29.2 SECONDS (24.2-38.5)
--- NOTE | 2021-01-03 18:51 | REPVR ---
PROCEDURE INFORMATION: Exam: CT Abdomen And Pelvis With Contrast Exam date and time: 01/03/2021 5:18 PM Age: 40 years old Clinical indication: Abdominal pain; Localized; Lower; Additional info: Bloody stools, lower abd pain, dairrhea TECHNIQUE: Imaging protocol: Computed tomography of the abdomen and pelvis with contrast. Radiation optimization: All CT scans at this facility use at least one of these dose optimization techniques: automated exposure control; mA and/or kV adjustment per patient size (includes targeted exams where dose is matched to clinical indication); or iterative reconstruction. Contrast material: ISOVUE 370; Contrast volume: 100 ml; Contrast route: INTRAVENOUS (IV); COMPARISON: CT ABD/PEL W/IV CONTRAST ONLY 09/26/2020 12:21 AM FINDINGS: Liver: There is hypodense fatty infiltration of the liver. The liver measures 20.3 cm in the craniocaudad dimension, consistent with hepatomegaly. Gallbladder and bile ducts: Surgical clips are identified within the gallbladder fossa, compatible with cholecystectomy. Pancreas: Unremarkable. No ductal dilation. Spleen: The spleen measures 12.8 cm in length, borderline for splenomegaly. Adrenal glands: No mass. Kidneys and ureters: Artifact limits evaluation of the lower poles of the kidneys bilaterally. No hydronephrosis of the kidneys. Stomach and bowel: Colonic diverticula are identified, without acute inflammatory stranding of the adjacent mesentery. Wall thickening is visualized of the colon from the transverse colon to the rectum, suggestive of proctocolitis. Incomplete distension of bowel can contribute to this finding. Evaluation of bowel is limited by the absence of oral contrast. Appendix: No evidence of appendicitis. Intraperitoneal space: No free air. No significant fluid collection. Vasculature: There is atherosclerotic calcification of the abdominal aorta and iliac arteries. Lymph nodes: No enlarged lymph nodes. Urinary bladder: The bladder is nearly empty. Reproductive: The uterus is absent. Bones/joints: Hypertrophic degenerative changes are noted involving the spine. A left-sided disc herniation is identified at L4-L5 with moderate spinal canal stenosis. Moderate to severe spinal canal stenosis is identified at L4-L5 and L5-S1. Neural foraminal narrowing is identified from L3-L4 through L5-S1. Artifact limits evaluation of the lower lumbar spinal canal on the previous study. Soft tissues: Unremarkable. IMPRESSION: 1. Wall thickening is visualized of the colon from the transverse colon to the rectum, suggestive of proctocolitis. Incomplete distension of bowel can contribute to this finding. Clinical correlation is recommended. 2. There is fatty infiltration of the liver. Stable hepatomegaly. 3. Borderline splenomegaly. 4. Diverticulosis. 5. A left-sided disc herniation is identified at L4-L5 with moderate spinal canal stenosis. Moderate to severe spinal canal stenosis is identified at L4-L5 and L5-S1. These findings can be further evaluated with MRI. 6. Additional findings described above. Electronically signed by: Randall Monreal On 01/03/2021 18:50:47 PM
[2021-01-03] MEDS ORDERED: ONDANSETRON 4MG/2ML VIAL IV ONE (19:10)
[2021-01-03] MEDS ORDERED: ASPIRIN 81 MG CHEW TABLET PO ONE (19:10)
--- NOTE | 2021-01-03 19:27 | REP ---
INDICATION: CP, +trop. COMPARISON: 10/10/2020. TECHNIQUE: Single portable AP view of the chest was performed. FINDINGS: There is no acute infiltrate or pulmonary edema. Lungs are clear. The heart is not significantly enlarged. The mediastinal silhouette is unremarkable. The visualized osseous structures are intact. IMPRESSION: No acute pulmonary disease. <Electronically signed by Wilbur Juárez > 01/03/21 1922
[2021-01-03 19:44] LABS: BASO # 0.1 10^3/uL (0.0-0.2); BASO % 0.6 % (0.0-1.0); EOS # 0.3 10^3/uL (0.0-0.5); HEMATOCRIT 61.4 % (36.0-47.0); HEMOGLOBIN 17.6 g/dl (12.0-15.5); LYMPH # 3.6 10^3/uL (1.5-5.0); LYMPH % 27.2 % (24.0-44.0); MEAN CORPUSCULAR HEMOGLOBIN 31.2 pg (27.0-33.0); MEAN CORPUSCULAR HGB CONC 28.7 g/dl (32.0-36.5); MEAN CORPUSCULAR VOLUME 108.9 fl (80.0-96.0); MONO # 1.5 10^3/uL (0.0-0.8); MONO % 10.9 % (2.0-8.0); NEUTROPHILS # 7.8 10^3/uL (1.5-8.5); NEUTROPHILS % 58.7 % (36.0-66.0); PLATELET COUNT, AUTOMATED 537 10^3/uL (150-450); RED BLOOD COUNT 5.64 10^6/uL (4.00-5.40)
[2021-01-03 19:47] LABS: WHITE BLOOD COUNT 13.3 10^3/uL (4.0-10.0)
[2021-01-03] MEDS ORDERED: ANUSOL HC 25MG SUPP PR STA (19:48)
[2021-01-03] MEDS ORDERED: MORPHINE 4 MG/ML 1ML VIAL/SYRINGE (J2270) IV ONE (19:50)
[2021-01-03 20:31] LABS: BLOOD UREA NITROGEN 18 MG/DL (7-18); CALCIUM LEVEL 10.4 MG/DL (8.5-10.1); CARBON DIOXIDE LEVEL 31 MEQ/L (21-32); CHLORIDE LEVEL 94 MEQ/L (98-107); CK-MB VALUE MASS < 1.0 NG/ML (<3.6); CPK CREATINE PHOSPHOKINASE 48 U/L (26-192); CREATININE FOR GFR 0.88 MG/DL (0.55-1.30); GLOMERULAR FILTRATION RATE > 60.0 (>58); GLUCOSE, FASTING 231 MG/DL (70-100); MB/CK RELATIVE INDEX 2.08 (< OR =4); POTASSIUM SERUM 4.4 MEQ/L (3.5-5.1); SODIUM LEVEL 131 MEQ/L (136-145); TROPONIN I 0.14 NG/ML (< 0.10)
[2021-01-03] MEDS: HumaLOG INSULIN (NovoLOG) PER UNIT SC SCH (21:00)
[2021-01-03 21:09] LABS: RSV AMPLIFICATION NEGATIVE (NEGATIVE)
--- NOTE | 2021-01-03 21:15 | ECGEPIP ---
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
--- NOTE | 2021-01-03 21:17 | ECGEPIP ---
[facility] - ED Test Date: 2021-01-03 Pat Name: ESSENCE AGUERO Department: Room: - Gender: Female Profile Saw Setup Operator: FADY : 1980 Requested By: NICHOLE Prabhakar PA-C Order Number: [id number] Reading MD: Leia Martinez Measurements Intervals [place] Rate: 78 P: 38 RI: 136 QRS: -74 QRSD: 82 T: 230 QT: 424 QTc: 483 Interpretive Statements Normal sinus rhythm Left axis deviation Minimal voltage criteria for LVH, may be normal variant ( Mookie product ) Inferior infarct , age undetermined Anterolateral infarct , age undetermined similar 01/03/21 Electronically Signed on 01-03-2021 21:17:06 EDT by Leia Martinez
[2021-01-03] MEDS ORDERED: MOM 30ML SUSPENSION UDC PO PRN (22:05)
[2021-01-03] MEDS ORDERED: DEXTROSE 50% 50 ML SYRINGE IV PRN (22:05)
[2021-01-03] MEDS ORDERED: MAALOX 30 ML SUSP *UDC PO PRN (22:05)
[2021-01-03] MEDS ORDERED: GLUCOSE 4GM CHEW TABLET PO PRN (22:05)
[2021-01-03] MEDS ORDERED: GLUCAGON INJ 1MG VIAL SC PRN (22:05)
--- NOTE | 2021-01-03 22:07 | HPEPDOC ---
[facility] Medical History & Physical Date of Admission Jan 03, 2021 Date of Service: Jan 03, 2021 Attending Physician: CITLALLI HECTOR MD History and Physical TIME OF SERVICE: 1115pm CHIEF COMPLAINT: bloody stool HISTORY OF PRESENT ILLNESS: is a 40 yr old F who presented w c/o 3 days of bloody stool associated with non-radiating, 7/10 in severity, lower abdominal pain. She denied having fever or vomiting but has had chills. She had transient burning chest pain that resolved earlier on during the day. She also has chronic mid-lower back pain, has had episodes of her legs buckling when she stands up for years and along with urinary incontinence for years. REVIEW OF SYSTEMS: 12-point review of systems negative except as listed in HPI PAST MEDICAL/ SURGICAL HISTORY: History of laryngeal cancer status post laryngectomy and radiation in 2001 currently has a decannulated stoma, NIDDM, CVA in 2016 with no residual deficits, Obesity, Panic disorder with history of depression, GERD, DLP, Asthma, Hypothyroidism, Hysterectomy, Cholecystectomy SOCIAL HISTORY: she smokes THC and tobacco products FAMILY HISTORY: DM and HTN in family ALLERGIES: Please see below. HOME MEDICATIONS: Please see below. PHYSICAL EXAMINATION: Vital Signs Date Time Temp Pulse Resp B/P (MAP) Pulse Ox O2 Delivery O2 Flow Rate FiO2 01/03/21 14:31 66 16 112/77 95 Room Air GENERAL APPEARANCE: well nourished and developed/ NAD HEENT: EOMI / MM pink but dry CARDIOVASCULAR: RRR/NMRG/ no BLE edema LUNGS: CTAB on RA ABDOMEN: contour obese/ MUSCULOSKELETAL: GRIS x 4 and in back / no c/o tenderness w percussion along the spine INTEGUMENT: + tattoos NEUROLOGICAL: speech difficult to understand bc of stoma PSYCHIATRIC: A&Ox 3 /able to understand and follow all commands LABORATORY DATA: IMAGING: Chest xray IMPRESSION: No acute pulmonary disease. CT abd/pelvis IMPRESSION: 1. Wall thickening is visualized of the colon from the transverse colon to the rectum, suggestive of proctocolitis. Incomplete distension of bowel can contribute to this finding. Clinical correlation is recommended. 2. There is fatty infiltration of the liver. Stable hepatomegaly. 3. Borderline splenomegaly. 4. Diverticulosis. 5. A left-sided disc herniation is identified at L4-L5 with moderate spinal canal stenosis. Moderate to severe spinal canal stenosis is identified at L4-L5 and L5-S1. These findings can be further evaluated with MRI. 6. Additional find ings described above. MICROBIOLOGY: respiratory panel neg ASSESSMENT: is a 40 yr old w a History of laryngeal cancer status post laryngectomy and radiation in 2001 currently has a decannulated stoma, NIDDM, CVA w/o residual deficits, Obesity, Panic disorder with history of depression, GERD, DLP, Asthma, Hypothyroidism who will be admitted for tx of SIRS vs Sepsis 2/2 proctocolitis & suspected demand ischemia. PLAN: 1 SIRS vs Sepsis 2/2 Proctocolitis Per CAPRI Ernst the rectal exam was remarkable for cong blood and hemorrhoids. She has leucocytosis (which may be chronic) and tachycardia. Its possible the proctocolitis is due to anal intercourse Plan: admit to medical floor /f/u blood cx and lactic acid / start IV ceftriaxone and azithromycin /pending rectal & urine gonorrhea/chylamida, T pallidium, stool ova and parasites and rectal HSV / she has an allergy to cefuroxime so I cant give her ceftriaxone, I will start Zosyn and doxycycline for now, the day time team may consider consulting ID for guidance w additional testing and her abx bc of her allergies 2 Possible demand ischemia The pt reported transient burning chest pain which has resolved The EKG showed inferior and anterolateral infarcts. CAPRI Funes discussed the case with who felt that the patient is not having an acute NJ and recommended trending the trops Plan: telemetry / trend trops / ASA / f/u lipid panel A1C, BNP and Echo to r/o structural heart dz 3 Pancytosis Appears to be chronic since about Aug May be due to myeloproliferative disorder (which she is at increased risk of after having radiation tx) or polycythemia vera Plan: f/u repeat CBC and peripheral smear 4 Mild asymptomatic hyponatremia Plan: IVF / f/u repeat BMP 5 Gamma Gap Her gamma gap is 4.5 Differential: acute HIV, plasma cell dyscrasia, generalized inflammation, latent infection Plan: f/u SPEP, UPEP, ELY/ if the work up is neg the day time team may consider obtaining consent to check her HIV status 6 Moderate to severe L4/L5 spinal canal stenosis She has chronic back pain and chronic urinary incontinence (which she thinks begun after her hysterectomy). She hasnt fallen Plan: f/u MRI spine/ Flector patch / Cyclobenzaprine 7 NIDDM Plan: diabetic diet / f/u accuchecks / hypoglycemia protocol / sliding scale insulin / hold oral anti-glycemic / f/u A1C (target A1C is <7 to 6.5%) / c/w Gabapentin for neuropathy ? 8 hx of CVA w/o residual deficits/ DLP Plan: start ASA and Statin 9 Panic disorder with history of depression Plan: Duloxetine Hydroxyzine 10 GERD Plan: Omeprazole 11 Chronic Asthma Plan: Montelukast, Ipratropium/Albuterol Sulfate 12 Hypothyroidism Plan: Levothyroxine 13 Obesity Complicates care DVT px w SCDs (Lynnette Score =2 points = pharmacological px not indicated) Dispo: home after at least 2 midnights stay Home Medications Scheduled Amoxicillin/Potassium Clav (Amox-Clav 875-125 mg Tablet) 1 Each Tablet, 875 MG PO BID Aspirin (Aspirin EC) 81 Mg Tablet.dr, 81 MG PO DAILY Atorvastatin Calcium (Atorvastatin Calcium) 20 Mg Tablet, 20 MG PO DAILY Budesonide (Budesonide) 1 Mg/2 Ml Ampul.neb, 1 MG INH BID Doxycycline Hyclate (Doxycycline Hyclate) 100 Mg Tablet, 100 MG PO BID Duloxetine Hcl (Duloxetine HCl) 60 Mg Capsule.dr, 60 MG PO QHS Gabapentin (Gabapentin) 600 Mg Tab, 1,200 MG PO TID Levothyroxine Sodium (Levothyroxine Sodium) 200 Mcg Tablet, 200 MCG PO DAILY Metformin HCl (Metformin HCl) 1,000 Mg Tablet, 1,000 MG PO BID Metronidazole (Flagyl) 500 Mg Tablet, 500 MG PO TID Montelukast Sodium (Montelukast Sodium) 10 Mg Tablet, 10 MG PO QHS Omeprazole (Omeprazole) 40 Mg Cap, 40 MG PO QHS Scheduled PRN Acetaminophen (Tylenol) 325 Mg Tablet, 650 MG PO Q4H PRN for PAIN / FEVER Cyclobenzaprine HCl (Cyclobenzaprine HCl) 10 Mg Tablet, 10 MG PO TID PRN for MUSCLE SPASMS Fluticasone Propionate (Flonase Allergy Relief) 9.9 Ml [place].susp, 1 SPRAY NA BID PRN for NASAL CONGESTION Hydroxyzine HCl (Hydroxyzine HCl) 25 Mg Tablet, 25 MG PO QID PRN for ANXIETY Ipratropium/Albuterol Sulfate (Iprat-Albut 0.5-3(2.5) mg/3 ml) 1 Harriet Harriet, 3 ML INH QID PRN for SHORTNESS OF BREATH Triamcinolone Acet (Triamcinolone Acetonide 0.1% Crm) 80 Gm Cream..g., 1 DOSE TOP BID PRN for REDNESS/IRRITATION APPLY TO STOMA Allergies Coded Allergies: cefuroxime (Verified Allergy, Intermediate, RASH/HIVES, 09/25/20) moxifloxacin (Verified Allergy, Intermediate, HIVES, 09/25/20) sulfamethoxazole (Verified Allergy, Intermediate, HIVES, 09/25/20) trimethoprim (Verified Allergy, Intermediate, HIVES, 09/25/20) Quinazolinones (Verified Allergy, Mild, RASH, 09/25/20) A-FIB/CHADSVASC A-FIB History Current/History of A-Fib/PAF?: No Current PO Anticoag Therapy: No CITLALLI HECTOR MD Jan 03, 2021 22:07
[2021-01-03] MEDS ORDERED: BUDE2SUS3 INH (22:49)
[2021-01-03] MEDS ORDERED: METF10004 PO (22:49)
[2021-01-03] MEDS ORDERED: ACET-907 PO (22:49)
[2021-01-03] MEDS ORDERED: CYCL-707 PO (22:49)
[2021-01-03] MEDS ORDERED: HYDR-3363 PO (22:49)
[2021-01-04] MEDS: ACETAMINOPHEN TAB 650MG DOSE (2X325MG) PO PRN ×2 (01:31→05:44)
[2021-01-04] MEDS ORDERED: FLUTICASONE PROP 0.05% NASAL SPRAY 16 GM (FLONASE) PRN (01:40)
[2021-01-04] MEDS: BUDESONIDE 180MCG INHALER (PULMICORT FLEXHALER) INH SCH ×2 (01:40→11:14)
[2021-01-04] MEDS: MELOXICAM (MOBIC) 7.5 MG TAB PO SCH ×2 (01:40→21:45)
[2021-01-04] MEDS ORDERED: IPRATROPIUM 0.5MG/ALBUTEROL 2.5MG INH SOL UD 3ML (DUONEB) INH PRN (01:40)
[2021-01-04] MEDS: RAMELTEON 8 MG TAB (ROZEREM) PO SCH ×2 (03:01→21:45)
[2021-01-04] MEDS: GABAPENTIN 300 MG CAP PO SCH ×4 (03:01→21:45)
[2021-01-04] MEDS: DOXYCYCLINE HYCLATE 100MG TABLET PO SCH ×3 (03:02→21:45)
[2021-01-04] MEDS: DULoxetine 30 MG CAP (CYMBALTA) PO SCH ×2 (03:02→21:45)
[2021-01-04] MEDS: MONTELUKAST 10 MG TAB PO SCH ×2 (03:02→21:45)
[2021-01-04] MEDS: OMEPRAZOLE 20 MG CAP PO SCH ×2 (03:02→21:45)
[2021-01-04] MEDS: metroNIDAZOLE 500 MG in IV 1 EA IV SCH ×3 (03:03→17:15)
[2021-01-04] MEDS: PIPERACILLIN/TAZOBACTAM SOD 3.375 GM in D5W MINI-BAG PLUS 50 ML IV SCH ×4 (04:18→21:46)
[2021-01-04 04:30] VITALS: BP 111/75
[2021-01-04] MEDS: hydrOXYzine 25 MG TAB PO PRN ×3 (05:44→21:45)
[2021-01-04 05:47] LABS: HEMATOCRIT 49.7 % (36.0-47.0); HEMOGLOBIN 15.9 g/dl (12.0-15.5); MEAN CORPUSCULAR HEMOGLOBIN 28.9 pg (27.0-33.0); MEAN CORPUSCULAR VOLUME 90.2 fl (80.0-96.0); PLATELET COUNT, AUTOMATED 442 10^3/uL (150-450); RED BLOOD COUNT 5.51 10^6/uL (4.00-5.40); WHITE BLOOD COUNT 10.5 10^3/uL (4.0-10.0)
[2021-01-04 06:22] LABS: HEMOGLOBIN A1c 9.2 %
[2021-01-04] MEDS: LEVOTHYROXINE 100MCG TABLET (0.1MG) PO SCH (06:34)
[2021-01-04] MEDS: DICLOFENAC EPOLAMINE 1.3 % PATCH TOP SCH ×3 (06:35→17:28)
[2021-01-04 07:11] LABS: BLOOD UREA NITROGEN 20 MG/DL (7-18); CALCIUM LEVEL 9.5 MG/DL (8.5-10.1); CARBON DIOXIDE LEVEL 27 MEQ/L (21-32); CHLORIDE LEVEL 94 MEQ/L (98-107); CHOLESTEROL LEVEL 276 MG/DL (<200); CHOLESTEROL RISK RATIO 10.222 (<5); CREATININE FOR GFR 0.95 MG/DL (0.55-1.30); GLOMERULAR FILTRATION RATE > 60.0 (>58); GLUCOSE, FASTING 258 MG/DL (70-100); HDL CHOLESTEROL 27 MG/DL (>40); NON-HDL-C 249 MG/DL; NT-PRO BNP 1736 PG/ML (<125); POTASSIUM SERUM 4.5 MEQ/L (3.5-5.1); SODIUM LEVEL 129 MEQ/L (136-145); TOTAL PROTEIN 7.3 GM/DL (6.4-8.2); TRIGLYCERIDES LEVEL 717 MG/DL (<150); TROPONIN I 0.15 NG/ML (< 0.10)
[2021-01-04 08:03] VITALS: BP 110/73
--- NOTE | 2021-01-04 08:14 | ECGEPIP ---
[facility] - ED Test Date: 2021-01-03 Pat Name: ESSENCE AGUERO Department: Room: [place] [address] Gender: Female Channel Manager: lizzie : 1980 Requested By: NICHOLE Prabhakar PA-C Order Number: [id number] Reading MD: Gómez Alfred Measurements Intervals [place] Rate: 71 P: 60 NE: 160 QRS: -77 QRSD: 88 T: 245 QT: 498 QTc: 541 Interpretive Statements Normal sinus rhythm Left axis deviation Minimal voltage criteria for LVH, may be normal variant ( [place] product ) Inferior infarct , age undetermined Anterolateral infarct , age undetermined Prolonged QT SIMILAR TO PRIOR ON SAME DATE Electronically Signed on 01-04-2021 8:13:48 EDT by Gómez Alfred
[2021-01-04] MEDS ORDERED: ENOXAPARIN 40MG/0.4ML SYRINGE (J1650 PER 10MG) SC SCH (09:00)
[2021-01-04] MEDS: HumaLOG INSULIN (NovoLOG) PER UNIT SC SCH ×4 (09:13→21:46)
[2021-01-04] MEDS: ASPIRIN 81MG ENTERIC TABLET PO SCH (09:14)
[2021-01-04] MEDS: ATORVASTATIN 20 MG TAB PO SCH (09:14)
[2021-01-04 13:26] LABS: ALBUMIN 4.26 GM/DL (3.29-5.55); ALBUMIN % 58.4 % (55.8-66.1); ALPHA-1-GLOBULIN % 4.2 % (2.9-4.9); ALPHA-1-GLOBULINS 0.31 GM/DL (0.17-0.41); ALPHA-2-GLOBULINS 1.07 GM/DL (0.42-0.99); ALPHA-2-GLOBULINS % 14.7 % (7.1-11.8); BETA-1-GLOBULINS % 6.2 % (4.7-7.2); GAMMA GLOBULIN % 11.3 % (11.1-18.8)
[2021-01-04 13:27] LABS: BETA-1-GLOBULINS 0.45 GM/DL (0.28-0.60); BETA-2-GLOBULINS 0.38 GM/DL (0.19-0.55); BETA-2-GLOBULINS % 5.2 % (3.2-6.5); GAMMA GLOBULINS 0.82 GM/DL (0.65-1.58)
[2021-01-04 16:00] VITALS: BP 114/56
--- NOTE | 2021-01-04 18:29 | IPNPDOC ---
Subjective Date Seen The patient was seen on 01/04/21. Subjective Chief Complaint/HPI Mrs. Bradshaw is a 40 year old female with NIDDM and history of laryngeal cancer s/p laryngectomy and radiation in 2001 with decannulated stoma who is here with bloody stool and abdominal pain. Due to patient's laryngectomy, it was difficult to understand patient. Otherwise, she reports having intermittent diarrhea with blood in stool and flank pain. Objective Physical Examination General Exam: Positive: Alert, Cooperative Eye Exam: Negative: Sclera icteric ENT Exam: Positive: Other ENT (Has decannulated stoma from laryngectomy) Chest Exam: Positive: Diminished Heart Exam: Positive: Rate Normal, Regular Rhythm Abdomen Exam: Positive: Normal bowel sounds, Soft Extremity Exam: Positive: Edema (mild bilateral pitting edema) Neuro Exam: Negative: Normal Speech Psych Exam: Positive: Anxiety Assessment /Plan Assessment Mrs. Bradshaw is a 40 year old female with NIDDM and history of laryngeal cancer s/p laryngectomy and radiation in 2001 with decannulated stoma who is here with bloody stool and abdominal pain. Imaging demonstrated proctocolitis. Work up for Proctitis initiated, and patient is on metronidazole and Zosyn. Otherwise, Troponin were trended. Peaked at 0.17. Trending CBC due to lower GI bleed Plan/VTE VTE Prophylaxis Ordered?: Yes Plan 1. Proctocolitis -No tachycardia. Leukocytes improving -Work up initiated -Empirically on Zosyn and metronidazole day 1 2. NSTEMI -Patient had transient burning chest pain. Now resolved -Troponin peaked at 0.19. Started to down trend -May be demand ischemia 3. Pancytosis -Peripheral smear demonstrates polycythemia, thrombosis, and leukocytosis -Patient should follow up with Heme/Onc outpatient for further evaluation 4. Gamma Gap -Gamma gap is 4.5 -SPEP is negative for M-spike 5. Moderate to severe L4/L5 spinal canal stenosis -Chronic back pain and urinary incontinence -Pending MRI spine -Continue diclofenac and cyclobenzaprine 6. NIDDM -Sliding scale insulin 7. History of CVA -Continue aspirin and atorvastatin 8. Depression and panic disorder -Continue duloxetine and hydroxyzine 9. GERD -Continue omeprazole 10. Chronic Asthma -Continue montelukast, budesonide, and duonebs 11. Hypothyroidism -Continue levothyroxine 12. Obesity -BMI of 35.9 -Complicates care 13. DVT ppx -TEDs Disposition: Pending improvement in bloody stools and symptoms VS, I&O, 24H, Fishbone Vital Signs/I&O Vital Signs Date Time Temp Pulse Resp B/P (MAP) Pulse Ox O2 Delivery O2 Flow Rate FiO2 01/04/21 16:00 97.2 73 18 114/56 (75) 91 Room Air I&O- Last 24 Hours up to 6 AM 01/04/21 06:00 Intake Total 105 ml Balance 105 ml Laboratory Data 24H LABS Laboratory Tests 2 01/03/21 17:11: Urine Color SHEBA, Urine Appearance CLOUDYH, Urine pH 5.0, Urine Specific [place] 1.035, Urine Protein 3+H, Urine Glucose (UA) 1+H, Urine Ketones TRACEH, Urine Blood NEGATIVE, Urine Nitrite NEGATIVE, Urine Bilirubin 2+H, Urine Urobi linogen 2.0H, Urine Leukocyte Esterase NEGATIVE, Urine WBC (Auto) 6H, Urine RBC (Auto) 0, Urine Hyaline Casts (Auto) 4, Urine Bacteria (Auto) NEGATIVE, Urine Squamous Epithelial Cells 9, Urine Mucus (Auto) SMALL, Urine Sperm (Auto) 01/03/21 17:59: Prothrombin Time 13.2, Prothromb Time International Ratio 0.98, Activated Partial Thromboplast Time 29.2 01/03/21 19:23: Immature Granulocyte % (Auto) 0.6, Neutrophils (%) (Auto) 58.7, Lymphocytes (%) (Auto) 27.2, Monocytes (%) (Auto) 10.9H, Eosinophils (%) (Auto) 2.0, Basophils (%) (Auto) 0.6, Neutrophils # (Auto) 7.8, Lymphocytes # (Auto) 3.6, Monocytes # (Auto) 1.5H, Eosinophils # (Auto) 0.3, Basophils # (Auto) 0.1, Nucleated Red Blood Cells % (auto) 0.0, Anion Gap 6L, Glomerular Filtration Rate > 60.0, Calcium Level 10.4H, Total Creatine Kinase 48, Creatine Kinase MB < 1.0, Creatine Kinase MB Relative Index 2.08, Troponin I 0.14#H 01/03/21 20:23: Coronavirus (COVID-19)(PCR) NEGATIVE, Influenza Type A (RT-PCR) NEGATIVE, Influenza Type B (RT-PCR) NEGATIVE, Respiratory Syncytial Virus (PCR) NEGATIVE 01/03/21 23:11: Bedside Glucose (Misc Panel) 266H 01/03/21 23:59: Lactic Acid Level 1.3, Troponin I 0.12H 01/04/21 05:22: Troponin I 0.15#H, Nucleated Red Blood Cells % (auto) 0.0, Differential Slide Review Report, Peripheral Blood Smear Path Consult PERIPHERAL SMEAR, Anion Gap 8, Glomerular Filtration Rate > 60.0, Estimated Mean Plasma Glucose 217H, Hemoglobin A1c 9.2, Calcium Level 9.5, GL-Yvp-T-Type Natriuretic Peptide 1736H, Total Protein (PEP) 7.3, Albumin (%) 58.4, Zlefs-7-Qsbqcwere (%) 4.2, Scjsr-0-Cpfccvalv (%) 14.7H, Gamma Globulins (%) 11.3, Ujkat-4-Kxvjmoygb 0.31, Wrpcy-0-Bhwcayeeq 1.07H, Gamma Globulins 0.82, Protein Electrophoresis Interpret SEE COMMENT, Albumin (PEP) 4.26, Fjej-8-Vgqgbjsy 0.45, Lusb-5-Awydafnj (%) 6.2, Vzjp-5-Cfkzxqsc 0.38, Slxm-0-Hvdzxxtv (%) 5.2, Serum PEP Pathologist Review REV'D BY Ranjan HARDING, Triglycerides Level 717H, Total Cholesterol 276H, LDL Cholesterol , Non-HDL Cholesterol (LDL + VLDL) 249, Total HDL Cholesterol 27L, Cholesterol/HDL Ratio 10.222H 01/04/21 11:14: Troponin I 0.19#H 01/04/21 11:53: Bedside Glucose (Misc Panel) 224H CBC/BMP Laboratory Tests 01/03/21 19:23 01/04/21 05:22 Microbiology Microbiology 01/03/21 Blood Culture, Received Pending KATHRYN LAUREN DO Jan 04, 2021 18:17
[2021-01-04 19:33] VITALS: BP_SYST 131; BP_SYST 148; BP_DIAS 86; BP_DIAS 87
[2021-01-04] MEDS: BUDESONIDE 0.5 MG/2 ML INHALATION SUSPENSION INH SCH (20:00)
[2021-01-04] MEDS ORDERED: PROHANCE 279.3MG/ML 5ML VIAL As Ordered ONE (21:00)
[2021-01-04] MEDS ORDERED: PROHANCE 279.3MG/ML 15ML VIAL As Ordered ONE (21:01)
[2021-01-04] MEDS: CYCLOBENZAPRINE 10MG TABLET PO PRN (21:45)
--- NOTE | 2021-01-04 22:17 | REPVR ---
PROCEDURE INFORMATION: Exam: MR Lumbar Spine Without and With Contrast Exam date and time: 01/04/2021 8:37 PM Age: 40 years old Clinical indication: Low back pain; Additional info: Back pain with unsteady gait TECHNIQUE: Imaging protocol: Multiplanar magnetic resonance images of the lumbar spine without and with intravenous contrast. Contrast material: PROHANCE; Contrast volume: 20 ml; Contrast route: INTRAVENOUS (IV); COMPARISON: No relevant prior studies available. FINDINGS: Vertebrae: Unremarkable. Loss of normal signal within the discs on the T2 weighted images at L2-L3 and L4-L5 reflecting disc desiccation. Spinal cord: Normal signal. No cord compression. Canal is congenitally small. Conus located posterior to T12-L1. L1-L2: No significant disc disease. No significant spinal canal stenosis. No neural foraminal stenosis. L2-L3: Circumferential annulus bulge.. No significant spinal canal stenosis. No neural foraminal stenosis. L3-L4: No significant disc disease. Mild facet arthropathy. No significant spinal canal stenosis. No neural foraminal stenosis. L4-L5: Small complex tear of the annulus posteriorly with bulging and mild impression upon the ventral margin of the thecal sac. Mild hypertrophic facet arthropathy. Mild narrowing of the lateral recesses bilaterally. Mild to moderate spinal canal stenosis. No neural foraminal stenosis. L5-S1: Small posterior central disc protrusion asymmetric to the right with impression upon the ventral margin of the thecal sac and narrowing of the right lateral recess. Mild canal stenosis. Moderate hypertrophic facet arthropathy. Soft tissues: Unremarkable. IMPRESSION: 1. Congenitally small canal with facet arthropathy and degenerative disc disease. 2. Complex posterior annular tear at L4-L5 with facet arthropathy and mild central stenosis. 3. Posterior disc protrusion at L5-S1 asymmetric to the right with narrowing the right lateral recess and mild central stenosis. Electronically signed by: Megan Sandra On 01/04/2021 22:17:31 PM
[2021-01-05] MEDS: metroNIDAZOLE 500 MG in IV 1 EA IV SCH (01:06)
[2021-01-05 01:22] LABS: OSMOLALITY URINE 512 MOSM/KG (50-1400)
[2021-01-05 01:39] LABS: SODIUM,RANDOM URINE < 10 MEQ/L
[2021-01-05] MEDS: CYCLOBENZAPRINE 10MG TABLET PO PRN (01:50)
[2021-01-05] MEDS: hydrOXYzine 25 MG TAB PO PRN (01:50)
[2021-01-05] MEDS: PIPERACILLIN/TAZOBACTAM SOD 3.375 GM in D5W MINI-BAG PLUS 50 ML IV SCH ×2 (02:35→09:02)
[2021-01-05 04:02] VITALS: BP 155/79
[2021-01-05] MEDS: LEVOTHYROXINE 100MCG TABLET (0.1MG) PO SCH (05:15)
[2021-01-05] MEDS: DICLOFENAC EPOLAMINE 1.3 % PATCH TOP SCH (05:16)
[2021-01-05 05:38] LABS: HEMATOCRIT 47.5 % (36.0-47.0); MEAN CORPUSCULAR HEMOGLOBIN 28.8 pg (27.0-33.0); MEAN CORPUSCULAR HGB CONC 31.6 g/dl (32.0-36.5); MEAN CORPUSCULAR VOLUME 91.3 fl (80.0-96.0); PLATELET COUNT, AUTOMATED 360 10^3/uL (150-450); WHITE BLOOD COUNT 7.8 10^3/uL (4.0-10.0)
[2021-01-05 05:57] LABS: BLOOD UREA NITROGEN 17 MG/DL (7-18); CALCIUM LEVEL 9.2 MG/DL (8.5-10.1); CARBON DIOXIDE LEVEL 28 MEQ/L (21-32); CHLORIDE LEVEL 100 MEQ/L (98-107); CREATININE FOR GFR 0.81 MG/DL (0.55-1.30); GLOMERULAR FILTRATION RATE > 60.0 (>58); GLUCOSE, FASTING 223 MG/DL (70-100); POTASSIUM SERUM 4.1 MEQ/L (3.5-5.1); SODIUM LEVEL 135 MEQ/L (136-145)
[2021-01-05 07:21] VITALS: BP 112/64
[2021-01-05] MEDS: BUDESONIDE 0.5 MG/2 ML INHALATION SUSPENSION INH SCH (07:26)
[2021-01-05] MEDS: DOXYCYCLINE HYCLATE 100MG TABLET PO SCH (09:00)
[2021-01-05] MEDS: ASPIRIN 81MG ENTERIC TABLET PO SCH (09:00)
[2021-01-05] MEDS ORDERED: metroNIDAZOLE (FLAGYL) 500MG TABLET PO SCH (09:00)
[2021-01-05] MEDS: GABAPENTIN 300 MG CAP PO SCH (09:00)
[2021-01-05] MEDS ORDERED: AUGMENTIN 875 MG TAB PO SCH (09:00)
[2021-01-05] MEDS: ATORVASTATIN 20 MG TAB PO SCH (09:01)
[2021-01-05] MEDS: HumaLOG INSULIN (NovoLOG) PER UNIT SC SCH ×2 (09:02→12:14)
[2021-01-05 09:34] LABS: C REACTIVE PROTEIN QUANTITATIV 0.94 MG/DL (0.00-0.30)
[2021-01-05] MEDS ORDERED: E-Z-PAQUE 96% w/w SUSP 176GM BTL As Ordered ONE (09:38)
[2021-01-05] MEDS ORDERED: E-Z-HD 98% w/w 340GM SUSP BTL As Ordered ONE (09:39)
[2021-01-05] MEDS ORDERED: E-Z-GAS II EFFERVESCENT PACKET (SODIUM BICARB./CITRIC ACID/SIMETHICONE) As Ordered ONE (09:39)
[2021-01-05 10:45] LABS: ERYTHROCYTE SEDIMENTATION RATE 9 mm/hr (0-20)
[2021-01-05 11:09] LABS: ANTINUCLEAR ANTIBODIES DIRECT Negative (Negative)
[2021-01-05 11:12] VITALS: BP 116/82
[2021-01-05] MEDS ORDERED: DOXY100T PO (11:14)
[2021-01-05] MEDS ORDERED: FLAG500T PO (11:14)
[2021-01-05] MEDS ORDERED: ATOR1TAB21 PO (11:14)
[2021-01-05] MEDS ORDERED: AMOX875T2 PO (11:14)
[2021-01-05] MEDS ORDERED: ASPI-551 PO (11:14)
[2021-01-05 11:26] LABS: CHLAMYDIA DNA AMPLIFICATION NEGATIVE (NEGATIVE); GC DNA AMPLIFICATION NEGATIVE (NEGATIVE)
--- NOTE | 2021-01-05 12:47 | ECHO ---
ECHOCARDIOGRAM DATE OF PROCEDURE: 01/04/2021 Age: 40 Gender: Height: Weight: REFERRING PROVIDER: Ana Nelson MD. PATIENT LOCATION: Room 3218. REASON FOR THE TESTING: Cardiac arrhythmias. 2D MEASUREMENTS: IVS 1.3 cm LV 3.9 cm LVPW 1.2 cm LA 3.0 cm Aorta 3.4 cm DOPPLER MEASUREMENT Peak velocity across the LVOT 1.0 m/s Mitral E 0.59 Mitral A 0.64 with a ratio of 0.9 2D COMMENTS: 1. Normal left ventricular size, wall thickness, and normal global left ventricular systolic function. The estimated left ventricular systolic ejection fraction is 60 to 65%. 2. Normal left atrium. Normal right atrium and right ventricle. 3. The atrial septum appeared to be normal without evidence of defect or shunt. 4. Normal aortic root. 5. No pericardial effusion seen. 6. Normal aortic valve. Minimally calcified mitral annulus with normal anterior mitral valve leaflet motion. Normal tricuspid valve. The pulmonic valve and proximal pulmonary artery branches were not well visualized. 7. The inferior vena cava was not visualized. DOPPLER: No significant valvular abnormalities detected. Abnormal relaxation pattern was noted across the mitral valve leaflets as well as the mitral valve annulus consistent with features of grade 1 left ventricular diastolic dysfunction. IMPRESSION: 1. Normal global left ventricular systolic function. There are some features of grade 1 left ventricular diastolic dysfunction manifested by abnormal relaxation. 2. No significant valvular abnormalities.
--- NOTE | 2021-01-05 18:30 | REP ---
INDICATION: Trouble swallowing solid foods, stricture?. COMPARISON: Cookie swallow dated 06/24/2020 TECHNIQUE: This procedure was performed by Latanya Streeter [facility], under the direct supervision of . Images were reviewed with prior to dictation. Liquid barium and gas producing crystals were given in the erect position, as well as liquid barium in the prone oblique position in order to perform a double contrast esophagram examination. FINDINGS: A single view PA chest x-ray is submitted as a recruiting intern film. The superior mediastinal structures are midline. The heart size is within normal limits. The lungs are clear. Patient is status post laryngectomy. The oral and pharyngeal stages of deglutition were unremarkable. There is a mild smooth stricture of the a cervical esophagus at the level of C5. Just inferior to that at the level of the thoracic inlet is an anteriorly projecting diverticulum. This was also visualized on the 06/24/2020 cookie swallow. Barium was retained in this diverticulum but cleared after multiple swallows. Esophageal transport is prompt and efficient however tertiary contractions were visualized throughout the exam. There no evidence of a hiatal hernia. There was no gastroesophageal reflux noted . IMPRESSION: 1. Mild smooth stricture of the cervical esophagus at the level of C5. 2. Anterior diverticulum at the level of the thoracic inlet is again visualized. 3. Tertiary contractions were visualized throughout the exam. 0.4 minutes of fluoroscopy time was utilized for this procedure. Some fluoroscopic images are performed with last image hold technology. These images require no additional radiation. <Electronically signed by Latanya Streeter > 01/05/21 1645 <Electronically signed by Wilbur Juárez > 01/05/21 [id number]
--- NOTE | 2021-01-05 20:55 | DS.PDOC ---
Discharge Summary General Date of Admission Jan 03, 2021 at 22:01 Date of Discharge Jan 05, 2021 Discharge Summary PROCEDURES PERFORMED DURING STAY: None ADMITTING DIAGNOSES: 1. Proctocolitis 2. NSTEMI type 2 (demand ischemia) 3. Pancytosis 4. Gamma Gap 5. Moderate to severe L4/L5 spinal canal stenosis 6. NIDDM 7. History of CVA 8. Dyslipidemia 9. Panic disorder with history of depression 10. GERD 11. Chronic asthma 12. Hypothyroidism 13. Obestiy DISCHARGE DIAGNOSES: 1. Proctocolitis 2. NSTEMI type 2 (demand ischemia) 3. Pancytosis 4. Gamma Gap 5. Moderate to severe L4/L5 spinal canal stenosis 6. NIDDM 7. History of CVA 8. Dyslipidemia 9. Panic disorder with history of depression 10. GERD 11. Chronic asthma 12. Hypothyroidism 13. Obestiy COMPLICATIONS/CHIEF COMPLAINT: Proctocolitis,Sirs (Syst Inflamm Resp Syndrome). HISTORY OF PRESENT ILLNESS: Copied from admitting physician's H&P " is a 40 yr old F who presented w c/o 3 days of bloody stool associated with non-radiating, 7/10 in severity, lower abdominal pain. She denied having fever or vomiting but has had chills. She had transient burning chest pain that resolved earlier on during the day. She also has chronic mid-l ower back pain, has had episodes of her legs buckling when she stands up for years and along with urinary incontinence for years. " HOSPITAL COURSE: Patient's troponins were trended until plateaued at 0.19. Down trended afterwards. Otherwise, during patient's hospitalization she did not have any bloody stools. Patient did have constipation. Hemoglobin remained stable. Patient is very anxious about trying to get to [place] for EGD. I reached out to our GI specialist Dr. Holguin and he said that we could do a colonoscopy and EGD during this hospitalization. I discussed this with the patient, but she did not want to stay to do these procedures. She tells me that she wants to have control and schedule these procedures outpatient. I explained that because of her tracheal stoma, GI preferred to do this inpatient, but she still declined and wanted you outpatient. Otherwise, patient was able to have MRI LS spine which was negative for cauda equina. Patient was put on Augmentin (patient had allergy to cephalosporins), Metronidazole, and Doxycycline for empiric coverage for proctocolitis. Doxycycline for possible chlamydia from proctitis. Pending rectal swab for gonorrhea and chlamydia. Patient felt ready for home and was subsequently discharged home. DISCHARGE MEDICATIONS: Please see below. ALLERGIES: Please see below. PHYSICAL EXAMINATION ON DISCHARGE: VITAL SIGNS: Please see below. GENERAL: Comfortable, in no apparent distress. HEENT: EOMI, sclera clear. NECK: Has decannulated stoma from laryngectomy RESPIRATORY: Diminished CARDIOVASCULAR: Regular rate and rhythm. ABDOMEN: Soft. Normal bowel sounds. MUSCLE SKELETAL: Mild bilateral pitting edema. PSYCHOLOGICAL: Anxious and emotional. LABORATORY DATA: Please see below. IMAGING: Radiologist interpretation CT abd/pelvis with IV contrast FINDINGS: Liver: There is hypodense fatty infiltration of the liver. The liver measures 20.3 cm in the craniocaudad dimension, consistent with hepatomegaly. Gallbladder and bile ducts: Surgical clips are identified within the gallbladder fossa, compatible with cholecystectomy. Pancreas: Unremarkable. No ductal dilation. Spleen: The spleen measures 12.8 cm in length, borderline for splenomegaly. Adrenal glands: No mass. Kidneys and ureters: Artifact limits evaluation of the lower poles of the kidneys bilaterally. No hydronephrosis of the kidneys. Stomach and bowel: Colonic diverticula are identified, without acute inflammatory stranding of the adjacent mesentery. Wall thickening is visualized of the colon from the transverse colon to the rectum, suggestive of proctocolitis. Incomplete distension of bowel can contribute to this finding. Evaluation of bowel is limited by the absence of oral contrast. Appendix: No evidence of appendicitis. Intraperitoneal space: No free air. No significant fluid collection. Vasculature: There is atherosclerotic calcification of the abdominal aorta and iliac arteries. Lymph nodes: No enlarged lymph nodes. Urinary bladder: The bladder is nearly empty. Reproductive: The uterus is absent. Bones/joints: Hypertrophic degenerative changes are noted involving the spine. A left-sided disc herniation is identified at L4-L5 with moderate spinal canal stenosis. Moderate to severe spinal canal stenosis is identified at L4-L5 and L5-S1. Neural foraminal narrowing is identified from L3-L4 through L5-S1. Artifact limits evaluation of the lower lumbar spinal canal on the previous study. Soft tissues: Unremarkable. IMPRESSION: 1. Wall thickening is visualized of the colon from the transverse colon to the rectum, suggestive of proctocolitis. Incomplete distension of bowel can contribute to this finding. Clinical correlation is recommended. 2. There is fatty infiltration of the liver. Stable hepatomegaly. 3. Borderline splenomegaly. 4. Diverticulosis. 5. A left-sided disc herniation is identified at L4-L5 with moderate spinal canal stenosis. Moderate to severe spinal canal stenosis is identified at L4-L5 and L5-S1. These findings can be further evaluated with MRI. 6. Additional findings described above. MRI lumbar spine IMPRESSION: 1. Congenitally small canal with facet arthropathy and degenerative disc disease. 2. Complex posterior annular tear at L4-L5 with facet arthropathy and mild central stenosis. 3. Posterior disc protrusion at L5-S1 asymmetric to the right with narrowing the right lateral recess and mild central stenosis. Barium esophagram IMPRESSION: 1. Mild smooth stricture of the cervical esophagus at the level of C5. 2. Anterior diverticulum at the level of the thoracic inlet is again visualized. 3. Tertiary contractions were visualized throughout the exam. PROGNOSIS: Good ACTIVITY: As tolerated. DIET: Consistent carbohydrates DISCHARGE PLAN: Home DISPOSITION: Home, Self-Care. DISCHARGE INSTRUCTIONS: 1. Follow up with PCP within 1 week 2. GI referral for EGD and colonoscopy. EGD for strictures seen from esophagram. Stricture may be from radiation for laryngeal cancer. Colonoscopy for proctocolitis. Proctocolitis may be infectious vs malignancy vs inflammatory bowel disease (Ulcerative colitis) 3. Patient may benefit from seen orthopedic spine surgeon for MRI findings. ITEMS TO FOLLOWUP ON ON OUTPATIENT: 1. Rectal swab cultures for chlamydia and gonorrhea 2. HSV PCR results 3. T. vaginalis PCR result DISCHARGE CONDITION: Stable. Total time spent on discharge planning, discharge summary, and medication reconciliation: 75 minutes Vital Signs/I&Os Vital Signs Date Time Temp Pulse Resp B/P (MAP) Pulse Ox O2 Delivery O2 Flow Rate FiO2 01/05/21 11:12 97.5 91 18 116/82 (93) 91 Room Air I&O- Last 24 Hours up to 6 AM 01/05/21 06:00 Intake Total 1950 ml Output Total 750 ml Balance 1200 ml Laboratory Data Labs 24H Laboratory Tests 2 01/05/21 00:56: Urine Osmolality 512, Urine Random Sodium < 10, Chlamydia trachomatis DNA (BA) NEGATIVE, Neisseria gonorrhoeae DNA (BA) NEGATIVE 01/05/21 04:45: Nucleated Red Blood Cells % (auto) 0.0, Erythrocyte Sedimentation Rate 9, Anion Gap 7L, Glomerular Filtration Rate > 60.0, Calcium Level 9.2, C-Reactive Protein, Quantitative 0.94H 01/05/21 11:35: Bedside Glucose (Misc Panel) 226H 01/05/21 13:05: CBC/BMP Laboratory Tests 01/05/21 04:45 FSBS Laboratory Tests Test 01/05/21 11:35 Range/Units Bedside Glucose (Misc Panel) 226 70-105 MG/DL Microbiology Microbiology 01/03/21 Blood Culture - Preliminary, Resulted No growth after 24 hours . All specim... Discharge Medications Scheduled Amoxicillin/Potassium Clav (Amox-Clav 875-125 mg Tablet) 1 Each Tablet, 875 MG PO BID Aspirin (Aspirin EC) 81 Mg Tablet.dr, 81 MG PO DAILY Atorvastatin Calcium (Atorvastatin Calcium) 20 Mg Tablet, 20 MG PO DAILY Budesonide (Budesonide) 1 Mg/2 Ml Ampul.neb, 1 MG INH BID, (Reported) Doxycycline Hyclate (Doxycycline Hyclate) 100 Mg Tablet, 100 MG PO BID Duloxetine Hcl (Duloxetine HCl) 60 Mg Capsule.dr, 60 MG PO QHS, (Reported) Gabapentin (Gabapentin) 600 Mg Tab, 1,200 MG PO TID, (Reported) Levothyroxine Sodium (Levothyroxine Sodium) 200 Mcg Tablet, 200 MCG PO DAILY, (Reported) Metformin HCl (Metformin HCl) 1,000 Mg Tablet, 1,000 MG PO BID, (Reported) Metronidazole (Flagyl) 500 Mg Tablet, 500 MG PO TID Montelukast Sodium (Montelukast Sodium) 10 Mg Tablet, 10 MG PO QHS, (Reported) Omeprazole (Omeprazole) 40 Mg Cap, 40 MG PO QHS, (Reported) Scheduled PRN Acetaminophen (Tylenol) 325 Mg Tablet, 650 MG PO Q4H PRN for PAIN / FEVER, (Reported) Cyclobenzaprine HCl (Cyclobenzaprine HCl) 10 Mg Tablet, 10 MG PO TID PRN for MUSCLE SPASMS, (Reported) Fluticasone Propionate (Flonase Allergy Relief) 9.9 Ml [place].susp, 1 SPRAY NA BID PRN for NASAL CONGESTION, (Reported) Hydroxyzine HCl (Hydroxyzine HCl) 25 Mg Tablet, 25 MG PO QID PRN for ANXIETY, (Reported) Ipratropium/Albuterol Sulfate (Iprat-Albut 0.5-3(2.5) mg/3 ml) 1 Harriet Harriet, 3 ML INH QID PRN for SHORTNESS OF BREATH, (Reported) Triamcinolone Acet (Triamcinolone Acetonide 0.1% Crm) 80 Gm Cream..g., 1 DOSE TOP BID PRN for REDNESS/IRRITATION, (Reported) APPLY TO STOMA Allergies Coded Allergies: cefuroxime (Verified Allergy, Intermediate, RASH/HIVES, 09/25/20) moxifloxacin (Verified Allergy, Intermediate, HIVES, 09/25/20) sulfamethoxazole (Verified Allergy, Intermediate, HIVES, 09/25/20) trimethoprim (Verified Allergy, Intermediate, HIVES, 09/25/20) Quinazolinones (Verified Allergy, Mild, RASH, 09/25/20) KATHRYN LAUREN DO Jan 05, 2021 20:55
[2021-01-07 05:07] LABS: HSV-1 DNA Negative (Negative); HSV-2 DNA Negative (Negative)
== END 2021-01-05 13:37 | disposition home or self-care (01) | DRG 254 ==
LOC: M ED 14:21 → EDBD 14:21 → M ED INP 22:01 → M PCU 01-04 04:26
PROVIDERS: ADMIT Internal Medicine; ATTEND Internal Medicine
DX: K62.89 Other specified diseases of anus and rectum (principal); E87.1 Hypo-osmolality and hyponatremia; E11.9 Type 2 diabetes mellitus without complications; F32.9 Major depressive disorder, single episode, unspecified; E03.9 Hypothyroidism, unspecified; D72.829 Elevated white blood cell count, unspecified; R32 Unspecified urinary incontinence; Z86.73 Personal history of transient ischemic attack (TIA), and cerebral infarction without residual deficits; E66.9 Obesity, unspecified; F41.0 Panic disorder [episodic paroxysmal anxiety]; K21.9 Gastro-esophageal reflux disease without esophagitis; E78.5 Hyperlipidemia, unspecified; J45.909 Unspecified asthma, uncomplicated; Z90.79 Acquired absence of other genital organ(s); Z90.49 Acquired absence of other specified parts of digestive tract; Z92.3 Personal history of irradiation; F17.290 Nicotine dependence, other tobacco product, uncomplicated; K64.9 Unspecified hemorrhoids; D75.89 Other specified diseases of blood and blood-forming organs; Z79.899 Other long term (current) drug therapy; Z79.82 Long term (current) use of aspirin; Z79.84 Long term (current) use of oral hypoglycemic drugs; Z88.1 Allergy status to other antibiotic agents; Z88.2 Allergy status to sulfonamides; Z88.8 Allergy status to other drugs, medicaments and biological substances; Z20.822 Contact with and (suspected) exposure to COVID-19; Z85.21 Personal history of malignant neoplasm of larynx; R07.89 Other chest pain; M48.061 Spinal stenosis, lumbar region without neurogenic claudication; Z68.35 Body mass index [BMI] 35.0-35.9, adult

== ENCOUNTER 2021-07-02 18:14 | Inpatient (IN) | payer OTHER ==
[~2021-07-02] VITALS: Ht 170.2 cm; Wt 121.5 kg
[~2021-07-02 18:14] MED LIST changes: +ACET-907 PO; +ACET1TAB55 PO; +ASPI-551 PO; +ATOR1TAB21 PO; -CYMB60CA3 PO; +CYMB60CA4 PO; +DOXY-443 PO; +DOXY100T PO; -DOXY1CAP62 PO; +HYDR-3363 PO
[2021-07-02] MEDS ORDERED: COMBIVENT RESPIMAT 100-20MCG INHALER 4GM INH ONE ×2 (18:35→20:20)
[2021-07-02] MEDS ORDERED: methylPREDNISolone 125MG 2ML VIAL IV ONE (18:35)
[2021-07-02 18:56] LABS: BASO # 0.1 10^3/uL (0.0-0.2); EOS # 0.3 10^3/uL (0.0-0.5); EOS % 3.2 % (0.0-3.0); HEMATOCRIT 53.1 % (36.0-47.0); HEMOGLOBIN 16.8 g/dl (12.0-15.5); LYMPH # 1.1 10^3/uL (1.5-5.0); LYMPH % 14.2 % (24.0-44.0); MEAN CORPUSCULAR HEMOGLOBIN 26.6 pg (27.0-33.0); MEAN CORPUSCULAR HGB CONC 31.6 g/dl (32.0-36.5); MONO # 0.8 10^3/uL (0.0-0.8); NEUTROPHILS # 5.7 10^3/uL (1.5-8.5); NEUTROPHILS % 71.4 % (36.0-66.0); PLATELET COUNT, AUTOMATED 313 10^3/uL (150-450); RED BLOOD COUNT 6.32 10^6/uL (4.00-5.40)
--- OUTSIDE RECORDS SUMMARY | 2021-07-02 18:57 | CCD ---
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 Name Role Phone Swathi Bishop Unavailable PROBLEMS Type Condition ICD9-CM Code [id number] Code Onset Dates Condition S tatus W/U Status Risk SNOMED Code Notes Problem Mixed hyperlipidemia 272.2 Active confirmed 207583921 Problem Hyperlipidemia, unspecified hyperlipidemia type E7 8.5 Active confirmed 50219148 Problem Presence of tracheostomy Z93.0 Active confirmed 513434021 Problem Gastroesophageal reflux disease, esophagitis pre sence not specified K21.9 Active confirmed 297447701 Problem Acquired hypothyroidism E03.9 Active confirmed 246401152 Problem Psoriasis L40.9 Active confirmed 2452368 Problem Hypothyroidism, unspecified type E03.9 Active conf irmed 28427402 Problem History of laryngectomy Z90.02 Active confirmed 826480639 Problem 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 confirmed 145 30407 Problem Diabetes mellitus without me ntion of complication, type II or unspecified type, not stated as uncontrolled 250.00 Activ e confirmed 595114982 Problem Other and unspecified hyperlipidemia 272.4 Act jodi confirmed 26062644 Problem COPD exacerbation J44.1 Active confirmed 19 1794159 Problem Gastro-esophageal reflux disease without esophagitis K21.9 Active confirmed 062407196 Problem CASEY (generalized anxiety disorder) F41.1 Activ e confirmed 38280258 Problem MDD (major depressive disorder), recurrent episode, mild F33.0 Active confirmed 527579167 Problem Lumbago with sciatica, right side M54.41 Active confirmed 460889452 Problem Lumbago with sciatica, left side M54.42 Active confirmed 241059641 Problem H/O: hysterectomy Z90.710 Active confirmed 1 97081422 Problem Herniated lumbar intervertebral disc M51.26 Act jodi confirmed 635476064 Problem 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 Acti ve confirmed 9030103306449 Problem Peripheral arterial disease I73.9 Active confirmed 798476981 Problem History of radiation therapy Z92.3 Active confirme d 263984166 Problem Smoker F17.200 Active confirmed 70944384 Problem Type 2 diabetes mellitus wit hout complication, without long-term current use of insulin E11.9 Active confirmed 732764318 Problem Mixed hyperlipidemia E78.2 Active confirmed 451934651 Problem Anxiety F41.9 Active confirmed 75419586 Problem Peripheral polyneuropathy G62.9 Active confirmed 44916792 Problem Difficulty swallowing solids R13.10 Active confirme d 973091582 Problem Chronic obstructive pulmonary disease, unspecified COPD ty pe J44.9 Active confirmed 21116900 Problem BMI 38.0-38.9,adult Z68.38 Active confirmed 902163852 Problem Obesity (BMI 30-39.9) E66.9 Active confirmed 021602304 ALLERGIES Allergen (clinical drug ingredient) Drug/Non Drug Allergy do cumented on EMR Reaction Allergy Type Onset Date Status Sulfacet-R HIVES Drug Allergy Active moxifloxacin Avelox HIVES Drug Allergy Active ENCOUNTERS from 1978 to 2021-06-27 Encounter Location Date Provider Diagnosis [address] [address] 24 May, 2021 Swathi Bishop Encounter to establish care Z76.89 ; Hypothyroidism, unspecified type E03.9 ; Type 2 diabetes mellitus without complication, without long-term current use of insulin E11.9 ; Chronic obstructive pulmonary disease, unspecified COPD type J44.9 ; 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 ; Need for influenza vaccination Z23 ; Rectal bleeding K62.5 ; Anxiety F41.9 ; Numbness of left hand R20.0 ; Left low back pain, unspecified chronicity, unspecified whether sciatica present M54.50 ; Left hip pain M25.552 ; Pain in right shoulder M25.511 ; Pain in left shoulder M25.512 ; Peripheral arterial disease I73.9 ; History of laryngectomy Z90.02 ; History of tracheostomy Z98.890 ; Abnormal CT scan, esophagus R93.3 ; History of radiation therapy Z92.3 ; Difficulty swallowing solids R13.10 ; 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 ; Esophageal dilatation K22.89 ; Incomplete bladder emptying R33.9 ; Smoker F17.200 ; Cool skin R23.1 ; Mixed hyperlipidemia E78.2 ; Obesity (BMI 30-39.9) E66.9 and BMI 38.0-38.9,adult Z68.38 IMMUNIZATIONS Vaccine Route Administration Date Status Fluarix IM Intramuscular Jun 14, 2021 Administered IM Intramuscular Jul 02, 2012 Administered SOCIAL HISTORY Tobacco Use: Social History Observation Description Date Details (start date - stop date) Current Smoker Sex Assigned At : Social History Observation Description Sex Assigned At Female Tobacco Use/Smoking Question Answer Notes Are you a current smoker How many cigarettes a day do you smoke? 11-20 How often do you smoke cigarettes? every day REASON FOR REFERRAL from 1978 to 2021-06-27 Reason The patient is a 40-year-old female has a history of rectal bleeding. Needs evaluation by Gastroenterology for further management. Please evaluate and treat as needed. Thank you. Diagnosis 1 Rectal bleeding (K62.5) Referral Organization [facility] Referring Provider First Name Swathi Referring Provider Last Name Dario Referring Provider Specialty Family Medicine Referred [facility] Referred Provider Juan Gavin Referred Address [address] [place] [address] Referred Provider Specialty Colorectal Surgery Referral Priority Routine General Notes Dayna Gar LPN 8:48:23 AM >Bindu Mcclellan RN 06/27/2021 8:00:41 AM > Please schedule with Dr. Gavin on 09/15. Thank you Reason further management. Please evaluate and treat as needed. Thank you. Diagnosis 1 Incomplete bladder emptying (R33.9) Referral Organization [facility] Referring Provider First Name Swathi Referring Provider Last Name Dario Referring Provider Specialty Family Medicine Referred [facility] Referred Provider Braxton Dunaway Referred Address [address] [place] [address] Referred Provider Specialty Urology Referral Priority Routine General Notes Dayna Gar LPN 8:48:54 AM > Please complete Sanjuana Connelly 06/20/2021 11:48:09 AM > Per [facility] system PCP is still listed as Phyllis Gamez pt will need to call phone number on back of insurance card and have PCP changed to Prashanth.Sanjuana Avalos 06/22/2021 11:50:59 AM > Sandhya did call and make pt aware this needed to happen and pt verbalized understanding.Sanjuana Avalos 06/26/2021 12:39:42 PM > [facility] referral completed will have scanned in to be attached and sent.Sanjuana Avalos 06/26/2021 1:04:29 PM > [facility] referral attached please schedule. Thanks Reason The patient is a 40-year-old female with complaints of left sided low back pain. Needs evaluation by Orthopedic for further management. Please evaluate and treat as needed. Thank you. Diagnosis 1 Left low back pain, unspecif ied chronicity, unspecified whether sciatica present (M54.50) Referral Organization [facility] Referring Provider First Name Swathi Referring Provider Last Name Dario Referring Provider Specialty Family Medicine Referred Provider [facility] Referred Provider Specialty Orthopedic Surgery Referral Priority Routine General Notes Dayna Gar LPN 8:49:15 AM > Please complete Sanjuana Connelly 06/20/2021 11:48:03 AM > Per [facility] PCP is still listed as Phyllis Gamez pt will need to call phone number on back of insurance card and have PCP changed to Prashanth.Sanjuana Avalos 06/22/2021 11:52:05 AM > Sandhya did call and make pt aware this needed to happen and pt verbalized understanding.Sanjuana Avalos 06/26/2021 12:39:35 PM > [facility] referral completed will have scanned in to be attached and sent.Sanjuana Avalos 06/26/2021 1:03:42 PM > [facility] referral attached and referral faxed. Reason The patient is a 40-year-old female, [facility]. Please evaluate and treat as needed. Thank you. Diagnosis 1 Anxiety (F41.9) Referral Organization [facility] Referring Provider First Name Swathi Referring Provider Last Name Dario Referring Provider Specialty Family Medicine Referred Organization [facility] Referred Provider Taylor Aparicio Referred Address [address] [facility],[address] Referred Provider Specialty Psychiatry Referral Priority Routine General Notes Dayna Gar LPN 8:49:24 AM > Please complete Sanjuana Connelly 06/20/2021 11:37:35 AM > Psy does not need [facility] referral. Referral faxed P2P Reason The patient is a 40-year-old female, needs evaluation by ENT for further management. Please evaluate and treat as needed. Thank you. Diagnosis 1 Presence of tracheostomy (Z9 3.0) Referral Organization [facility] Referring Provider First Name Swathi Referring Provider Last Name Dario Referring Provider Specialty Family Medicine Referred Provider CROW ZAMBRANO Referred Provider Specialty Otolaryngology Referral Priority Routine General Notes Dayna Gar LPN 8:49:33 AM > Please complete Sanjuana Connelly 06/20/2021 11:47:56 AM > Per [facility] system PCP is still listed as Phyllis Gamez pt will need to call phone number on back of insurance card and have PCP changed to Prashanth.Sanjuana Avalos 06/22/2021 11:51:58 AM > Sandhya did call and make pt aware this needed to happen and pt verbalized understanding.Sanjuana Avalos 06/26/2021 12:39:23 PM > [facility] referral completed will have scanned in to be attached and sent.Sanjuana Avalos 06/26/2021 1:03:01 PM > [facility] referral attached and referal faxed. Reason The patient is a 40-year-old female with complaints of left hand numbness. Needs evaluation by Orthopedic for further management. Please evaluate and treat as needed. Thank you. Diagnosis 1 Numbness of left hand (R20.0 ) Referral Organization [facility] Referring Provider First Name Swathi Referring Provider Last Name Dario Referring Provider Specialty Family Medicine Referred Provider [facility] Referred Provider Specialty Orthopedic Surgery Referral Priority Routine General Notes Dayna Gar LPN 8:49:43 AM > Please complete Sanjuana Connelly 06/20/2021 11:47:50 AM > Per [facility] system PCP is still listed as Phyllis Gamez pt will need to call phone number on back of insurance card and have PCP changed to Prashanth.Sanjuana Avalos 06/22/2021 11:51:51 AM > Sandhya did call and make pt aware this needed to happen and pt verbalized understanding.Sanjuana Avalos 06/26/2021 12:39:11 PM > [facility] referral completed will have scanned in to be attached and sent.Sanjuana Avalos 06/26/2021 12:55:51 PM > [facility] referral completed and attached. Referral faxed.Sanjuana Avalso 06/26/2021 1:01:24 PM > [facility] referral attached and referral sent. Reason The patient is a 40-year-old female with complaints of left hip pain. Needs evaluation by Orthopedic for further management. Please evaluate and treat as needed. Thank you. Diagnosis 1 Left hip pain (M25.552) Referral Organization [facility] Referring Provider First Name Swathi Referring Provider Last Name Dario Referring Provider Specialty Family Medicine Referred Provider [facility] Referred Provider Specialty Orthopedic Surgery Referral Priority Routine General Notes Dayna Gar LPN 8:49:56 AM > Please complete Sanjuana Connelly 06/20/2021 11:47:45 AM > Per [facility] system PCP is still listed as Phyllis Gamez pt will need to call phone number on back of insurance card and have PCP changed to Prashanth.Sanjuana Avalos 06/22/2021 11:51:44 AM > Sandhya did call and make pt aware this needed to happen and pt verbalized understanding.Sanjuana Avalos 06/26/2021 12:38:52 PM > [facility] referral completed will have scanned in to be attached and sent.Sanjuana Avalos 06/26/2021 12:55:12 PM > [facility] referral attached and referral faxed. Reason The patient is a 40-year-old female with complaints of pain in right shoulder. Needs evaluation by Orthopedic for further management. Please evaluate and treat as needed. Thank you. Diagnosis 1 Pain in right shoulder (M25. 511) Referral Organization [facility] Referring Provider First Name Swathi Referring Provider Last Name Dario Referring Provider Specialty Family Medicine Referred Provider [facility] Referred Provider Specialty Orthopedic Surgery Referral Priority Routine General Notes Dayna Gar LPN 8:50:04 AM > Please complete Sanjuana Connelly 06/20/2021 11:47:40 AM > Per [facility] system PCP is still listed as Phyllis Gamez pt will need to call phone number on back of insurance card and have PCP changed to Prashanth.Sanjuana Avalos 06/22/2021 11:51:37 AM > Sandhya did call and make pt aware this needed to happen and pt verbalized understanding.Sanjuana Avalos 06/26/2021 12:38:20 PM > [facility] referral completed will have scanned in to be attached and sent.Sanjuana Avalos 06/26/2021 12:54:28 PM > [facility] referral attached and referral faxed. Reason The patient is a 40-year-old female with complaints of pain in left shoulder. Needs evaluation by Orthopedic for further management. Please evaluate and treat as needed. Thank you. Diagnosis 1 Pain in left shoulder (M25.5 12) Referral Organization [facility] Referring Provider First Name Swathi Referring Provider Last Name Dario Referring Provider Specialty Family Medicine Referred Provider [facility] Referred Provider Specialty Orthopedic Surgery Referral Priority Routine General Notes Dayna Gar LPN 8:50:12 AM > Please complete Sanjuana Connelly 06/20/2021 11:46:52 AM > Per [facility] system PCP is still listed as Phyllis Gamez pt will need to call phone number on back of insurance card and have PCP changed to Prashanth.Dayna Gar LPN 06/20/2021 1:54:03 PM > Spoke to patient she was made aware of the above and will do this.Dayna Gar LPN 06/26/2021 12:05:15 PM > Can you see if her PCP has been updated? thanks !Sanjuana Avalos 06/26/2021 12:52:36 PM > I already did this morning it hadnt changed as of Saturday. [facility] referral completed and attached. Referral faxed. VITAL SIGNS Height 69.25 in May, Weight 264.0 lbs May, BMI 38.70 kg/m2 May, Temperature 98.0 degrees Fahrenheit May, Heart Rate 90 /min May, Respiratory Rate 22 /min May, Oximetry 92 % May, Blood pressure systolic 132 mmHg May, Blood pressure diastolic 88 mmHg May, MEDICATIONS Medication SIG (Take, Route, Frequency, Duration) Notes Start Da te End Date Status Cephalexin 500 MG 1 capsule Orally Four times a day for 5 day(s) Active OneTouch Ultra Blue - as directed In Vitro 4 times a day as needed for 90 days Dec, Unknown Synthroid 25 MCG 1 tablet on an empty stomach in the morning with 25 mcg tablet Orally Once a day for 90 days Oct, Ac tive Motorized Scooter 1 1 scooter Z93.0 / J44.1 as directed for cont inuous Dec, Unknown Gabapentin 600 MG 2 tablets Orally 3x daily for 30 days November, Active Nulytely with Flavor Packs 420 GM as directed Orally once for 1 dose Unknown Cymbalta 60 MG 1 capsule Orally Once a day for 30 days Dec, Active Flonase Allergy Relief 50 MCG/ACT 1 spray in each nost ril Nasally Once a day for 30 day(s) November, Active Budesonide 0.5 MG/2ML 2 ml Inhalation Twice a day for 30 days Active OneTouch Lancets - 4 times a day and as needed for 90 days Dec, Unknown Omeprazole 40 MG 1 capsule Orally Once a day for 90 days Active Doxycycline Monohydrate 100 MG 1 capsule Orally Twice a day for 10 da y(s) Active OneTouch Ultra 2 w/Device as directed 4 times per day and as needed for 30 days Dec, Unknown hydrOXYzine HCl 25 MG as directed Orally three times a day Feb, Active Levothyroxine Sodium 200 MCG 1 tablet on an empty stom ach in the morning Orally Once a day for 90 days Active Ipratropium-Albuterol 0.5-2.5 (3) MG/3ML 3 ml as neede d Inhalation every 6 hrs for 30 days Active Meloxicam 15 MG 1 tablet Orally Once a day for 90 days Oct, Not-Taking metFORMIN HCl 1000 MG 1 tablet with meals Orally Twice a day for 90 days Only takes when she can swallow Oct, Active PROCEDURES No Information RESULTS No Results REASON FOR VISIT EST CARE MEDICAL (GENERAL) HISTORY Type Description Date Medical History Throat cancer age 21 Medical History Tracheostomy Medical History Hypothyroid Medical History Hyperlipidemia Medical History Bipolar Disorder Medical History GERD Medical History T2DM Surgical History Total laryngectomy 2001 Surgical History Laparoscopic payal 1996 Surgical History Hysterectomy 2009 Surgical History BTL Surgical History Teeth extracted 2005 Hospitalization History Surgeries Hospitalization History Pneumonia Hospitalization History Hemoptysis 11/08/2017 Hospitalization History [facility]- COPD 12/2017 Goals Section No Information Health Concerns No Information MEDICAL EQUIPMENT No Information MENTAL STATUS No Information FUNCTIONAL STATUS No Information ASSESSMENTS Encounter Date Diagnosis Assessment Notes Treatment Notes Treatm ent Clinical Notes May, Encounter to establish care (ICD-10 - Z76.89) - Follow up yearly for annual PE - Follow up as directed for routine condition monitoring - Follow up as needed for acute injury/illness/questions/concerns Health Maintenance: - Ensure diet high in fruits, vegetables, lean protein - Moderate alcohol, caffiene - Avoid tobacco - Obtain at least 120 mins of heart raising physical activity a week - Wear seatbelt - Use CO and smoke detectors in home Screenings: - Start colonoscopy at age 50 unless otherwise directed - Obtain yearly fasting labs - Start yearly mammograms at age 40 unless otherwise directed - Obtain yearly pelvic exams and every 3 years pap smear starting at age 21 unless otherwise directed May, Hypothyroidism, unspecified type (ICD-10 - E03.9 ) Will obtain updated labs May, Type 2 diabetes mellitus wit hout complication, without long-term current use of insulin (ICD-10 - E11.9) Advised to continue on the current medication regimen. Things that you can do at home to improve glycemic control (improve blood sugars) 1. Avoid foods with added sugars (read nutrition labels) 2. Avoid foods high in carbohydrates (bread, pasta, rice, sugar, sweets, processed foods) 3. Increase physical activity 4. Avoid snacking/eating between meals 5. Avoid sugary beverages like fruit juice, soda, alcohol May, Chronic obstructive pulmonar y disease, unspecified COPD type (ICD- 10 - J44.9) Refill provided today Continue with current management. May, History of primary laryngeal cancer (ICD-10 - Z8 5.21) Noted history. Patient needs ENT follow up May, Need for influenza vaccination (ICD-10 - Z23) Will administer vaccine today. Pt denies any allergies to eggs or reaction to previous vaccine. VIS sheet provided May, Rectal bleeding (ICD-10 - K62.5) Referral sent to GI for further treatment. May, Anxiety (ICD-10 - F41.9) Today, her CASEY-7 score is 14 which revealed moderate anxiety. Discussed a referral to [facility], pt accepts referral at this time. Encouraged to find family and friend support to talk to. Pt to report to the ED immediately with any thoughts of self-harm and/or harm to others. Pt v/u and agree. May, Numbness of left hand (ICD-10 - R20.0) Referral sent to Orthopedic for further management. May, Left low back pain, unspecif ied chronicity, unspecified whether sciatica present (ICD-10 - M54.50) Ordered x-ray to rule out any bony abnormality. Referral sent ot Orthopedic for further management. Further treatment pending based on x-ray result. May, Left hip pain (ICD-10 - M25.552) Ordered x-ray to rule out any bony abnormality. Referral sent ot Orthopedic for further management. Further treatment pending based on x-ray result. May, Pain in right shoulder (ICD-10 - M25.511) Referral sent ot Orthopedic for further management. May, Pain in left shoulder (ICD-10 - M25.512) Referral sent ot Orthopedic for further management. May, Peripheral arterial disease (ICD-10 - I73.9) Ordered arterial Doppler bilateral upper and lower extremity ultrasound for further evaluation May, History of laryngectomy (ICD-10 - Z90.02) Noted history. Needs to follow up with ENT May, History of tracheostomy (ICD-10 - Z98.890) As above May, Abnormal CT scan, esophagus (ICD-10 - R93.3) Noted abnormality on CT. May, History of radiation therapy (ICD-10 - Z92.3) Noted history. 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 Referral sent to Dr. Dunaway, Urology for further management. May, Smoker (ICD-10 - F17.200) Discussed the risks and dangers of smoking/chewing tobacco/vaping. Strongly encouraged patient to quit smoking. Discussed various cessation options including nicotine patches, Chantix, and Zyban. Patient will get back to us about cessation May, Cool skin (ICD-10 - R23.1) Will assess for PAD May, Mixed hyperlipidemia (ICD-10 - E78.2) Advised to continue with the current medication regimen. Things that you can do at home to help control cholesterol: - Decrease unhealthy fats (sweeney, butter, meat) - Increase activity - Lose weight May, Obesity (BMI 30-39.9) (ICD-10 - E66.9) Recommend increasing low impact activity (walking, swimming, yoga), weight loss and diet including portion control, avoidance of high glycemic index foods like white bread, white pasta, white rice, white sugar and avoidance of fatty foods like butter, fried foods, steak/ground beef, full fat dairy products. Avoid sugary beverages like fruit juice, soda and alcohol. Consume lean protein including fish, chicken and healthy fats like avocado, nuts and olive oil. Check food labels and avoid foods high in salt especially prepackaged meals. Try to eat structured meals throughout the day, ensuring obtaining macronutrients at each meal (proteins, fats, carbohydrates). [employer] recommends at least 120 minutes of aerobic activity per week. This can include any heart raising activity and does not need to be done all at once May, BMI 38.0-38.9,adult (ICD-10 - Z68.38) as above May, Other All questions an d concerns addressed, patient understanding and agreeable to plan. Patient encouraged to follow up at the clinic for any additional or new questions or concerns. Time spent includes face to face time with patient and review of any pertinent laboratory results, consult documentation/hospital notes and diagnostic imaging. Time spent:45 mins Janay Yuen, scribing the following service on behalf of Swathi Bishop NP on 06/14/2021. PLAN OF TREATMENT Medication Medication Name Sig Start Date Stop Date Budesonide 0.5 MG/2ML 2 ml Inhalation Twice a day for 30 days Ipratropium-Albuterol 0.5-2.5 (3) MG/3ML 3 ml as neede d Inhalation every 6 hrs for 30 days Treatment Notes Assessment Notes Clinical Notes Peripheral arterial disease Ordered arterial Doppler b ilateral upper and lower extremity ultrasound for further evaluation Pain in left shoulder Referral sent ot Orthopedic for furthe r management. History of tracheostomy As above History of laryngectomy Noted history. Needs to follow up wi ENT History of radiation therapy Noted history. Abnormal CT scan, esophagus Noted abnormality on CT. Tracheal anomaly As above Difficulty swallowing solids Referral made to ENT Pain in right shoulder Referral sent ot Orthopedic for fur er management. Left hip pain Ordered x-ray to rule out an y bony abnormality.Referral sent ot Orthopedic for further management.Further treatment pending based on x-ray result. Mixed hyperlipidemia Advised to continue with the current medication regimen. Things that you can do at home to help control cholesterol:- Decrease unhealthy fats (sweeney, butter, meat)- Increase activity- Lose weight Encounter to establish care - Follow up yearly for [facility] PE- Follow up as directed for routine condition monitoring- Follow up as needed for acute injury/illness/questions/concernsHealth Maintenance:- Ensure diet high in fruit s, vegetables, lean protein- Moderate alcohol, caffiene- Avoid tobacco- Obtain at least 120 mins of heart raising physical activity a week- Wear seatbelt- Use CO and smoke detectors in homeScreenings:- Start colonoscopy at age 50 unless otherwise directed- Obtain yearly fasting labs- Start yearly mammograms at age 40 unless otherwise directed- Obtain yearly pelvic exams and every 3 years pap smear starting at age 21 unless otherwise directed Cool skin Will assess for PAD Hypothyroidism, unspecified type Will obtain updated labs BMI 38.0-38.9,adult as above Type 2 diabetes mellitus without complic ation, without long-term current use of insulin Advised to continue on the current medic ation regimen. Things that you can do at home to improve glycemic control (improve blood sugars) 1. Avoid foods with added sugars (read nutrition labels) 2. Avoid foods high in carbohydrates (bread, pasta, rice, sugar, sweets, processed foods) 3. Increase physical activity 4. Avoid snacking/eating between meals 5. Avoid sugary beverages like fruit juice, soda, alcohol Obesity (BMI 30-39.9) Recommend increasing low imp act activity (walking, swimming, yoga), weight loss and diet including portion control, avoidance of high glycemic index foods like white bread, white pasta, white rice, white sugar and avoidance of fatty foods like butter, fried foods, steak/ground beef, full fat dairy products. Avoid sugary beverages like fruit juice, soda and alcohol. Consume lean protein including fish, chicken and healthy fats like avocado, nuts and olive oil. Check food labels and avoid foods high in salt especially prepackaged meals. Try to eat structured meals throughout the day, ensuring obtaining macronutrients at each meal (proteins, fats, carbohydrates). [employer] recommends at least 120 minutes of aerobic activity per week. 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 History of primary laryngeal cancer Noted history. Patient n eeds ENT follow up Need for influenza vaccination Will administer vaccine today. Pt denies any allergies to eggs or reaction to previous vaccine.VIS sheet provided Rectal bleeding Referral sent to GI for further treatmen t. Esophageal dilatation As above Smoker Discussed the risks and peres ers of smoking/chewing tobacco/vaping. Strongly encouraged patient to quit smoking. Discussed various cessation options including nicotine patches, Chantix, and Zyban. Patient will get back to us about cessation Incomplete bladder emptying The patient complains havi ng incomplete bladder emptying.Referral sent to Dr. Dunaway, Urology for further management. Anxiety Today, her CASEY-7 score is 14 which revealed moderate anxiety. Discussed a referral to [facility], pt accepts referral at this time. Encouraged to find family and friend support to talk to. Pt to report to the ED immediately with any thoughts of self-harm and/or harm to others. Pt v/u and agree. Numbness of left hand Referral sent to Orthopedic for furthe r management. Left low back pain, unspecified chronici ty, unspecified whether sciatica present Ordered x-ray to rule out any bony abnor mality.Referral sent ot Orthopedic for further management.Further treatment pending based on x-ray result. Pending Tests Test Name Order Date X ray : Hip, left 2021-06-14 XRAY LUMBAR SPINE 2021-06-14 US ART DOPPLER JERRY LOWER EXTREMITY - [id number] 2021-06-14 US ART DOPPLER JERRY UPPER EXTREM - [id number] 2021-06-14 COMPLETE METABOLIC PROLFILE 2021-06-14 HGBA1C 2021-06-14 MICROALB/CREAT 2021-06-14 LIPID PROFILE 2021-06-14 TSH 2021-06-14 FREE T4 2021-06-14 Referrals Referral Date Details The patient is a 40-year-old female has a history of rectal bleeding. Needs evaluation by Gastroenterology for further management. Please evaluate and treat as needed. Thank you., Juan Gavin, [address] [place] [address], [id number], further management. Please evaluate and treat as needed. Thank you., Braxton Dunaway, [address] [place] [address], [phone], The patient is a 40-year-old female with complaints of left sided low back pain. Needs evaluation by Orthopedic for further management. Please evaluate and treat as needed. Thank you., [facility] The patient is a 40-year-old female, needs evaluation by [facility] for counselling. Please evaluate and treat as needed. Thank you., Taylor Aparicio, [address] [place] [address], [phone], The patient is a 40-year-old female, needs evaluation by ENT for further management. Please evaluate and treat as needed. Thank you., [facility] ZAMBRAN[facility] The patient is a 40-year-old female with complaints of left hand numbness. Needs evaluation by Orthopedic for further management. Please evaluate and treat as needed. Thank you., [facility] The patient is a 40-year-old female with complaints of left hip pain. Needs evaluation by Orthopedic for further management. Please evaluate and treat as needed. Thank you., [facility] The patient is a 40-year-old female with complaints of pain in right shoulder. Needs evaluation by Orthopedic for further management. Please evaluate and treat as needed. Thank you., [facility] The patient is a 40-year-old female with complaints of pain in left shoulder. Needs evaluation by Orthopedic for further management. Please evaluate and treat as needed. Thank you., [facility] Next Appt Details within the next 4 weeks Reason:Labs/Resu lts Provider Name:Swathi Bishop, 2021-12-0 8 02:00:00 PM, [address] [place] [address], [phone], Follow Up:within the next 4 weeksLabs/Results Insurance Providers Payer Name Payer Address Payer Phone Insured Name Patient Relati onship to Insured Coverage Start Date Coverage End Date Subscriber Number Group Nu mber [employer] M[employer] - [employer] MEDICAID [address] [address] [address] AGUERO [facility] [id number]
--- OUTSIDE RECORDS SUMMARY | 2021-07-02 18:57 | CCD | Continuity of Care Document ---
Author Author Kathy SEQUEIRA [facility] Organization Unknown Address [address] [place] [address] Phone [phone] Care Team Providers Care Coin Purse Assembler Name Role Phone [facility] Emma Sequeira AUTM [phone] Problems Active Problems Provider Date Moderate recurrent major depression TOYA Swenson, PNP Onset: 05/25/2020 Type II diabetes mellitus uncontrolled TOYA Swenson P SPECIAL EDUCATION INCLUSION TEACHER Onset: 05/25/2020 Pure hypercholesterolemia TOYA Swenson, PNP Onset: 10/2019 Cerebral artery occlusion TOYA Swenson, PNP Onset: 10/2019 Hemorrhage of rectum and anus TOYA Swenson PNP Onset: 05/25/2020 FH: Arthritis TOYA Swenson, PNP Onset: 0 Family history of asthma TOYA Swenson PNP Onset: 10/2019 Mental disorder TOYA Swenson PNP Onset: 0 Family history of diabetes [...] Use Allergies, Adverse Reactions, Alerts Active Allergies Criticality Reaction | Severity Comments Date Quinolones Unable to assess criticality 05/16/2020 Sulfa Antibiotics Unable to assess criticality 05/16/2020 Medications Active Medications SIG Qnty Indications Ordering Provide r Date Bathtub Safety Rail Misc Use as dairected 1unsally Blackburn MD 02/02/2021 Motorized Scooter Use as directed for assistance with mobility. 1un its Kalyan Blackburn MD 02/02/2021 Anucort-HC 25mg Suppository insert 1 suppository hakeem rectally twice a day a needed. 24units Kalyan Blackburn MD 02/02/2021 Hydroxyzine HCL 25mg Tablets 1 tab by mouth 1-4 times a day as needed for anxiety 120tabs Thien Blackburn MD 10/27/2020 Atorvastatin Calcium 20mg Tablets 1 by mouth every day 30tabs Kalyan Blackburn MD Aspirin 81 Low Dose 81mg Chewtabs 1 tab by mouth every day as directed 30units Kalyan Blackburn MD Nystatin [id number]/GM Powder apply to rash in folds of skin on abdomen 2-3 times a day as needed 60gm TOYA Swenson, PNP Metformin HCL 1000mg Tablets 1 by mouth twice a day 60tabs TOYA Swenson, PNP 00 Ventolin HFA 108(90Base) mcg/Act A erosol 2 puff every 4-6 hours as needed 8gm Kalyan Blackburn MD Fluticasone Propionate 50mcg/Act Suspension Camillus 1 Camillus In Each Nostril Once Daily Unknown Triamcinolone Acetonide 0.1% Cream Apply To Stoma Skin Two Times A Day Unknown Levothyroxine Sodium 200mcg Tablet s take one tablet by mouth every day on an empty stomach 30tabs Kalyan Blackburn MD Budesonide 1mg/2ML Suspension Inhale [address] Nebulizer Two Times A Day Unknown Ipratropium [place]/Albuterol Sulfate 0.5-2.5(3)mg/3ML Solution Inhlae 1 Vial Via Nebulizer 4 Times A Day as Needed Unknown [employer] Ultra Strips Use To Test Four Times A Day Unknown [employer] Ultra 2 w/Device Kit Use To Test Four Times A Day Unknown [employer] Ultrasoft Lancets Misc Use To Test Four Times A Day Unknown Sodium Chloride 0.9% Nebulizer Inhale [address] Nebulizer 2 To 3 Times A Day as Needed With Albuterol Unknown [employer] Delica Plus Lancets Extra Fine 33G Plus 33G Misc Use To Test Four Times A Day Unknown Cyclobenzaprine HCL 10mg Tablets take one tablet by mouth three times a day as needed for muscle spasms 90tabs Kalyan Blackburn MD Omeprazole 40mg Capsules DR take one capsule by mouth every day 90ruiz Blackburn MD 0 Montelukast Sodium 10mg Tablets take one tablet by mouth every day 30tabs Kalyan Blackburn MD Meloxicam 15mg Tablets take one tablet by mouth every day 30tabs Kalyan Blackburn MD Glyburide 5mg Tablets Take One Tablet By Mouth Every Day With Food Unknown Gabapentin 600mg Tablets take two tablets by mouth three times a day 180tabs Kalyan Blackburn MD 0 Duloxetine HCL 60mg Caps DR Part take one capsule by mouth every day 30ruiz Blackburn MD 0 Immunizations CPT Code Status Date Vaccine Lot # [id number] Given 05/16/2020 Influenza (>= 6 Months) P.F. Vaccine [id number] Vital Signs Date Vital Result Comment 02/02/2021 10:07am BP Systolic 122 mmHg BP Diastolic 80 mmHg Heart Rate 78 /min Body Temperature 97.3 F Respiratory Rate 16 /min O2 % BldC Oximetry 89 % Weight 264.25 lb Weight 119.864 kg Height 71 inches 5'11" BMI (Body Mass Index) 36.9 kg/m2 BSA (Body Surface Area) 2.37 m2 10/27/2020 2:14pm BP Systolic 132 mmHg BP Diastolic 78 mmHg Heart Rate 112 /min Body Temperature 97.9 F Respiratory Rate 20 /min O2 % BldC Oximetry 94 % Weight 267.25 lb Weight 121.225 kg Height 71 inches 5'11" BMI (Body Mass Index) 37.3 kg/m2 BSA (Body Surface Area) 2.39 m2 Results Test Acquired Date Facility Test Result H/L Range Note CBC W/Automated Diff 02/02/2021 [facility] CBC W/Automated Diff (SEE NOTE) 1, 2 WBC 10.6 10^3/uL 4.2 - 11.0 RBC 5.63 10^6/uL High 4.20 - 5.40 Hemoglobin 15.9 g/dL 12.0 - 16.0 Hematocrit 49.7 % High 37.0 - 47.0 MCV 88.3 fL 81.0 - 101 MCH 28.2 pg 27.0 - 34.0 MCHC 32.0 g/dL 31.0 - 36.0 RDW 13.2 % 11.5 - 14.5 Platelets 397 10^3/uL 150 - 450 MPV 10.1 fL 7.4 - 10.4 Neut 59.3 % 37.0 - 80.0 Lymph 28.9 % 25.0 - 40.0 [place] 8.1 % High 3.0 - 8.0 Eos 2.7 % 0.0 - 7.0 Baso 0.7 % 0.0 - 2.5 %Ig 0.3 % High 0.0 - 0.0 %NRBC 0.0 % 0.0 - 0.0 #Neut 6.27 10^3/uL 2.00 - 6.90 #Lymph 3.05 10^3/uL 0.60 - 3.40 #[place] 0.86 10^3/uL 0.00 - 0.90 #Eos 0.29 10^3/uL 0.00 - 0.70 #Baso 0.07 10^3/uL 0.00 - 0.20 #Ig 0.03 10^3/uL 0.00 - 0.10 #NRBC 0.00 10^3/uL 0.00 - 0.00 Manual Diff NOT INDICATED RBC Morph NOT INDICATED Comprehensive Metabolic Panel 02/02/2021 [facility] Comprehensive Metabo (SEE NOTE) 3 Sodium 133 mEq/L Low 134 - 153 Potassium 4.7 mEq/L 3.6 - 5.0 Chloride 93 mEq/L Low 98 - 107 Co2 29 mEq/L 22 - 30 Glucose 200 mg/dL High 70 - 99 BUN 5 mg/dL Low 7 - 21 Creatinine 0.6 mg/dL Low 0.7 - 1.5 BUN/Creat 8 8 - 27 Total Protein 7.6 g/dL 6.3 - 8.2 Albumin 4.6 g/dL 3.9 - 5.0 Globulin 3.0 GM/DL 2.4 - 3.2 A/G Ratio 1.5 0.8 - 2.0 Calcium 9.5 mg/dL 8.4 - 10.2 Total Bili <0.7 mg/dL 0.2 - 1.3 Alkaline Phos 116 U/L 38 - 126 Sgot/Ast 24 U/L 5 - 40 SGPT/Alt 17 U/L 7 - 56 Anion Gap 11.0 mmol/L 8.0 - 16.0 Age 40 yrs Non-Aa GFR >60 mL/min Afr Amer GFR >60 mL/min 4 [facility] test [facility] Hgba1c 9.1 % High 4.4 - 6.1 5 Cve Panel 02/02/2021 [facility] Cve Panel (SEE NOTE) 6 Cholesterol 196 mg/dL 131 - 200 Triglycerides 568 mg/dL High 35 - 160 HDL 28 mg/dL Low 29 - 86 LDL 92 mg/dL 65 - 175 Risk Factor 7.0 High 3.2 - 4.4 LDL/HDL 3.29 High 1.47 - 3.22 7 Laboratory test finding 02/02/2021 [facility] Magnesium Serum 1.7 mg/dL 1.7 - 2.2 Vitamin D (25-Hydroxy) 11 NG/ML 8 TSH Highly Sensitive 6.52 uIU/mL High 0.47 - 5.01 T4 - Free 0.60 ng/dL Low 0.93 - 1.70 1 Is patient fasting? Y 2 COMPLETE BLOOD COUNT 3 COMPREHENSIVE METABOLIC PANE L 4 Male GFR Interprentation 20-49 yrs >60 mL/min Normal 50-59 yrs >56 mL/min Normal 60-69 yrs >49 mL/min Normal 70-79yrs >42 mL/min Normal 80 and above >35 mL/min Normal Female GFR Interpretation 20-39 yrs >60 mL/min Normal 40-49 yrs >58 mL/min Normal 50-59 yrs >51 mL/min Normal 60-69 yrs >45 mL/min Normal 70-79 yrs >39 mL/min Normal 80 and above >32 mL/min Normal 5 {A1] {HB] 6 LIPID PANEL 7 CVE RISK CHOL/HDL LDL/HDL MEN: 1/2 AVERAGE 3.43 1.00 AVERAGE 4.97 3.55 2X AVERAGE 9.55 6.25 3X AVERAGE 23.99 7.99 WOMEN: 1/2 AVERAGE 3.27 1.47 AVERAGE 4.44 3.22 2X AVERAGE 7.05 5.03 3X AVERAGE 11.04 6.14 8 VITAMIN-D(25HYDROXY) Deficiency: <=20 ng/ml Insufficiency: 21-29 ng/ml Preferred level: => 30 ng/ml Procedures Date Code Description Status 04/17/2021 91868 Office/Outpatient Established Lo w MDM 20-29 Min Completed 02/02/2021 81462 Office/Outpatient Established Mo d MDM 30-39 Min Completed 01/17/2021 77382 Office/Outpatient Established Lo w MDM 20-29 Min Completed 10/27/2020 52414 Office/Outpatient Established Mo d MDM 30-39 Min Completed Medical Devices Description No Information Available Encounters Description No Information Available Assessments Date Code Description Provider 04/17/2021 E03.9 Hypothyroidism, unspecified Cadence n Nevills, [facility] 04/17/2021 E11.65 Type 2 diabetes mellitus with hy perglycemia Emma Nevills, [facility] 04/17/2021 E78.00 Pure hypercholesterolemia, unspe cified Emma Nevills, [facility] 04/17/2021 E55.9 Vitamin D deficiency, unspecifie d Emma Nevills, [facility] 04/17/2021 K21.9 Gastro-esophageal reflux disease without esophagitis Emma Nevills, [facility] 04/17/2021 F41.9 Anxiety disorder, unspecified Ka damián Nevills, [facility] 04/17/2021 F33.1 Major depressive disorder, recur rent, moderate Emma Nevills, [facility] 04/17/2021 Z79.899 Other bed bug exterminator (current) drug t herapy Emma Nevills, PULMONARY FUNCTION TECHNOLOGIST 02/14/2021 E03.9 Hypothyroidism, unspecified Cadence n Nevills, PULMONARY FUNCTION TECHNOLOGIST 02/14/2021 Z90.02 Acquired absence of larynx Emma Nevills, PULMONARY FUNCTION TECHNOLOGIST 02/14/2021 I21.9 Acute myocardial infarction, uns pecified Emma Nevills, PULMONARY FUNCTION TECHNOLOGIST 02/14/2021 J44.9 Chronic obstructive pulmonary di sease, unspecified Emma Nevills, PULMONARY FUNCTION TECHNOLOGIST 02/14/2021 F41.9 Anxiety disorder, unspecified Ka damián Nevills, PULMONARY FUNCTION TECHNOLOGIST 02/14/2021 F33.1 Major depressive disorder, recur rent, moderate Emma Nevills, PULMONARY FUNCTION TECHNOLOGIST 02/14/2021 E11.65 Type 2 diabetes mellitus with hy perglycemia Emma Nevills, [facility] 02/14/2021 E78.00 Pure hypercholesterolemia, unspe cified Emma Nevills, [facility] 02/14/2021 K21.9 Gastro-esophageal reflux disease without esophagitis Emma Nevills, PULMONARY FUNCTION TECHNOLOGIST 02/14/2021 R47.02 Dysphasia Emma Nevills, F SPECIAL EDUCATION INCLUSION TEACHER 02/14/2021 E55.9 Vitamin D deficiency, unspecifie d Emma Nevills, [facility] 02/14/2021 Z79.899 Other bed bug exterminator (current) drug t herapy Emma Nevills, [facility] 02/02/2021 I21.9 Acute myocardial infarction, uns pecified Emma Nevills, [facility] 02/02/2021 J44.9 Chronic obstructive pulmonary di sease, unspecified Emma Nevills, PULMONARY FUNCTION TECHNOLOGIST 02/02/2021 F41.9 Anxiety disorder, unspecified Ka damián Nevills, [facility] 02/02/2021 Z90.02 Acquired absence of larynx Emma Nevills, [facility] 02/02/2021 F33.1 Major depressive disorder, recur rent, moderate Emma Nevills, PULMONARY FUNCTION TECHNOLOGIST 02/02/2021 E03.9 Hypothyroidism, unspecified Cadence n Nevills, PULMONARY FUNCTION TECHNOLOGIST 02/02/2021 E11.65 Type 2 diabetes mellitus with hy perglycemia Emma Nevills, PULMONARY FUNCTION TECHNOLOGIST 02/02/2021 E78.00 Pure hypercholesterolemia, unspe cified Emma Nevills, PULMONARY FUNCTION TECHNOLOGIST 02/02/2021 K21.9 Gastro-esophageal reflux disease without esophagitis Emma Nevills, PULMONARY FUNCTION TECHNOLOGIST 02/02/2021 Z79.899 Other bed bug exterminator (current) drug t herapy Emma Nevills, PULMONARY FUNCTION TECHNOLOGIST 02/02/2021 R47.02 Dysphasia Emma Nevills, F SPECIAL EDUCATION INCLUSION TEACHER 02/02/2021 E55.9 Vitamin D deficiency, unspecifie d Emma Nevills, PULMONARY FUNCTION TECHNOLOGIST 01/17/2021 I21.9 Acute myocardial infarction, uns pecified Emma Nevills, PULMONARY FUNCTION TECHNOLOGIST 01/17/2021 R22.42 Localized swelling, mass and lum p, left lower limb Emma Nevills, [facility] 01/17/2021 J44.9 Chronic obstructive pulmonary di sease, unspecified Emma Nevills, [facility] 01/17/2021 Z90.02 Acquired absence of larynx Emma Nevills, [facility] 01/17/2021 F41.9 Anxiety disorder, unspecified Ka damián Nevills, [facility] 01/17/2021 F33.1 Major depressive disorder, recur rent, moderate Emma Nevills, PULMONARY FUNCTION TECHNOLOGIST 01/17/2021 E03.9 Hypothyroidism, unspecified Cadence n Nevills, [facility] 01/17/2021 E11.65 Type 2 diabetes mellitus with hy perglycemia Emma Nevills, [facility] 01/17/2021 E78.00 Pure hypercholesterolemia, unspe cified Emma Nevills, [facility] 01/17/2021 K21.9 Gastro-esophageal reflux disease without esophagitis Emma Nevills, [facility] 01/17/2021 Z79.899 Other bed bug exterminator (current) drug t herapy Emma Nevills, PULMONARY FUNCTION TECHNOLOGIST 11/28/2020 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 Emma Nevills, [facility] 11/28/2020 J44.9 Chronic obstructive pulmonary di sease, unspecified Emma Nevills, [facility] 11/28/2020 Z90.02 Acquired absence of larynx Emma Nevills, [facility] 11/28/2020 F41.9 Anxiety disorder, unspecified Ka damián Nevills, [facility] 11/28/2020 F33.1 Major depressive disorder, recur rent, moderate Emma Nevills, PULMONARY FUNCTION TECHNOLOGIST 11/28/2020 E03.9 Hypothyroidism, unspecified Cadence n Nevills, PULMONARY FUNCTION TECHNOLOGIST 11/28/2020 E11.65 Type 2 diabetes mellitus with hy perglycemia Emma Sequeira, PULMONARY FUNCTION TECHNOLOGIST 11/28/2020 S42.001G Fracture of unspecif ied part of right clavicle, subsequent encounter for fracture with delayed healing Emma Sequeira, PULMONARY FUNCTION TECHNOLOGIST 11/28/2020 E78.00 Pure hypercholesterolemia, unspe cified Emma Sequeira, PULMONARY FUNCTION TECHNOLOGIST 10/27/2020 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 TOYA Swenson, PNP 10/27/2020 J44.9 Chronic obstructive pulmonary di sease, unspecified TOYA Swenson, PNP 10/27/2020 Z90.02 Acquired absence of larynx TOYA Swenson, PNP 10/27/2020 F41.9 Anxiety disorder, unspecified TOYA Brambila, PNP 10/27/2020 F33.1 Major depressive disorder, recur rent, moderate KIKO Swenson, PNP 10/27/2020 E03.9 Hypothyroidism, unspecified TOYA Swenson, PNP 10/27/2020 E11.65 Type 2 diabetes mellitus with hy perglycemia KIKO Swenson, PNP 10/27/2020 S42.001G Fracture of unspecif ied part of right clavicle, subsequent encounter for fracture with delayed healing TOYA Swenson, PNP 10/27/2020 E78.00 Pure hypercholesterolemia, unspe cified TOYA Swenson, PNP Plan of Treatment 04/17/2021 - Emma Sequeira, [facility]* E03.9 Hypothyroidism, unspecified* Comments:* Her laboratory reports dated 02/14/21 were reviewed in detail. TSH high at 6.52.Advised fresh lab work and lab orders were given.The patient was advised to continue current medication regimen. We will need to monitor her TSH periodically. * Follow up:* Will have transport arranged for FU and lab draw. Tele-med FU to review labs once they are back. * E11.65 Type 2 diabetes mellitus with hyperglycemia* Comments:* Her laboratory reports dated 02/14/21 were reviewed in detail. Advised fresh lab work and lab orders were given.Fasting glucose high at 200 with an A1c high at 9.1.The patient was advised to continue with her current medication regimen. She will benefit from maintaining a diabetic diet and a regular exercise regimen. We will continue to monitor. * Follow up:* Will have transport arranged for FU and lab draw. Tele-med FU to review labs once they are back. * E78.00 Pure hypercholesterolemia, unspecified* Comments:* Her laboratory reports dated 02/14/21 were reviewed in detail. Lipid panel showed:CHOL at 196.TRG high at 568.HDL low at 28.LDL at 92.Advised fresh lab work and lab orders were given.She will continue with her current regimen. She was enco uraged to maintain a low cholesterol diet and a regular exercise regimen. We will continue to monitor. TRG elevatedDecrease saturated Fats (meat, dairy products and processed foods)Increase Unsaturated fats (fish, plants, nuts, seeds, beans and vegetable oils)Read Labels. * Follow up:* Will have transport arranged for FU and lab draw. Tele-med FU to review labs once they are back. * E55.9 Vitamin D deficiency, unspecified* Comments:* Her laboratory reports dated 02/14/21 were reviewed in detail.Vit D low at 11.Advised fresh lab work and lab orders were given. * Follow up:* Will have transport arranged for FU and lab draw. Tele-med FU to review labs once they are back. * K21.9 Gastro-esophageal reflux disease without esophagitis* Comments:* She was advised to continue with her current medication. Avoid spicy food and control diet as advised. * F41.9 Anxiety disorder, unspecified* Comments:* The patient is relatively doing well on current regimen without any adverse effects, will continue the same. We will continue to monitor. * F33.1 Major depressive disorder, recurrent, moderate* Comments:* Condition reviewed in detail, the patient's mood is stable at present with current medication regimen, will continue the same. We will continue to monitor. * Z79.899 Other bed bug exterminator (current) drug therapy* Comments:* Patient to continue to follow the current plan of care and to look for any new or worsening symptoms. We will continue to monitor through periodic blood work. * Follow up:* Will have transport arranged for FU and lab draw. Tele-med FU to review labs once they are back. Functional Status Description No Information Available Mental Status Description No Information Available Referrals Refer to Reason for Referral Status Appt [facility] Please see this patien t for c/o dysphagia, may require esophageal dilitation. [facility] [address] [place] [address] [phone] Rigoberto Ortiz MD Please reevaluate and treat patient. Seen previously by you. S/P recent hospital adm. for MA. See recent [facility] admission notes. Sent 06/12/2021 [address] [facility] [address] [place], [place] [id number] [phone] [facility] Outpatient Mental Health Please see this 40 yo fem steffanie with Hx Bipolar Disorder, most recent episode primarily MDD mixed. Under treated for past 1-2 years. Pt also has s/s OCD and insomnia. Sent [address] [place], [place] [id number] [phone] Please see this 40 yo female for TE Fistula Sen t 01/06/2021 Please see this 40 yo female for right fx clavicle 2018 which was not treated, causing pain and getting worse Closed
--- OUTSIDE RECORDS SUMMARY | 2021-07-02 18:57 | CCD ---
Author Author [facility] Organization [facility] Address Unknown Phone Unavailable Care Team Providers Care Well Tester Name Role Phone Wei Baldwin Unavailable PROBLEMS Type Condition ICD9-CM Code QVB04-EQ Code Onset Dates Condition S tatus W/U Status Risk SNOMED Code Notes Problem Mixed hyperlipidemia 272.2 Active confirmed 472080505 Problem Diabetes mellitus without me ntion of complication, type II or unspecified type, not stated as uncontrolled 250.00 Activ e confirmed 780744652 Problem Hyperlipidemia, unspecified hyperlipidemia type E7 8.5 Active confirmed 39292834 Problem Presence of tracheostomy Z93.0 Active confirmed 493791611 Problem Acquired hypothyroidism E03.9 Active confirmed 679033362 Problem Gastroesophageal reflux disease, esophagitis pre sence not specified K21.9 Active confirmed 575030807 Problem Anxiety F41.9 Active confirmed 76605889 Problem Psoriasis L40.9 Active confirmed 5400299 Problem Gastro-esophageal reflux disease without esophagitis K21.9 Active confirmed 712950960 Problem Peripheral polyneuropathy G62.9 Active confirmed 19308818 Problem COPD exacerbation J44.1 Active confirmed 19 8259355 Problem Lumbago with sciatica, left side M54.42 Active confirmed 671837963 Problem Type 2 diabetes mellitus wit hout complication, without long-term current use of insulin E11.9 Active confirmed 110954973 Problem Lumbago with sciatica, right side M54.41 Active confirmed 753995681 Problem Hypothyroidism, unspecified type E03.9 Active conf irmed 63729896 Problem Other and unspecified hyperlipidemia 272.4 Act jodi confirmed 19912879 Problem MDD (major depressive disorder), recurrent episode, mild F33.0 Active confirmed 998276178 Problem CASEY (generalized anxiety disorder) F41.1 Activ e confirmed 83644460 Problem Herniated lumbar intervertebral disc M51.26 Act jodi confirmed 370005667 Problem H/O: hysterectomy Z90.710 Active confirmed 1 29749092 ALLERGIES Allergen (clinical drug ingredient) Drug/Non Drug Allergy do cumented on EMR Reaction Allergy Type Onset Date Status Sulfacet-R HIVES Drug Allergy Active none Unknown Non Drug Allergy Active moxifloxacin Avelox HIVES Drug Allergy Active ENCOUNTERS from 1978 to 2021-06-08 Encounter Location Date Provider Diagnosis [address] [address] May, Wei Baldwin IMMUNIZATIONS Vaccine Route Administration Date Status IM Intramuscular Jul 02, 2012 Administered SOCIAL HISTORY Tobacco Use: Social History Observation Description Date Details (start date - stop date) Current Smoker Sex Assigned At : Social History Observation Description Sex Assigned At Female Tobacco Use/Smoking Question Answer Notes Are you a current smoker How many cigarettes a day do you smoke? 6-10 How often do you smoke cigarettes? every day REASON FOR REFERRAL No Information VITAL SIGNS No information MEDICATIONS Medication SIG (Take, Route, Frequency, Duration) Notes Start Da te End Date Status metFORMIN HCl 1000 MG 1 tablet with meals Orally Twice a day for 90 days Oct, Unknown glyBURIDE 5 MG 1 tablet with breakfast or t he first main meal of the day Orally Once a day for 90 days Oct, Unknown hydrOXYzine HCl 10 MG as directed Orally every 6 hrs for 30 days Feb, Unknown Meloxicam 15 MG 1 tablet Orally Once a day for 90 days Oct, Unknown Nulytely with Flavor Packs 420 GM as directed Orally once for 1 dose Unknown Omeprazole 40 MG 1 capsule Orally Once a day for 90 days Unknown busPIRone HCl 10 MG 1 tablet Orally in the pm for 30 days Feb, Unknown Synthroid 25 MCG 1 tablet on an empty stomach in the morning with 25 mcg tablet Orally Once a day for 90 days Oct, Un known Gabapentin 600 MG 2 tablets Orally 3x daily for 30 days November, Unknown OneTouch Ultra Blue - as directed In Vitro 4 times a day as needed for 90 days Dec, Unknown Motorized Scooter 1 1 scooter Z93.0 / J44.1 as directed for cont inuous Dec, Unknown Flonase Allergy Relief 50 MCG/ACT 1 spray in each nost ril Nasally Once a day for 30 day(s) November, Unknown OneTouch Ultra 2 w/Device as directed 4 times per day and as needed for 30 days Dec, Unknown Levothyroxine Sodium 200 MCG 1 tablet on an empty stom ach in the morning Orally Once a day for 90 days Unknown Cymbalta 60 MG 1 capsule Orally Once a day for 30 days Dec, Unknown OneTouch Lancets - 4 times a day and as needed for 90 days Dec, Unknown PROCEDURES No Information RESULTS No Results REASON FOR VISIT referral MEDICAL (GENERAL) HISTORY Type Description Date Medical History Throat cancer age 21 Medical History Tracheostomy Medical History Hypothyroid Medical History Hyperlipidemia Medical History Bipolar Disorder Medical History GERD Medical History T2DM Surgical History Total laryngectomy Surgical History Laparoscopic payal Surgical History Hysterectomy Surgical History BTL Surgical History Teeth extracted Hospitalization History Surgeries Hospitalization History Pneumonia Hospitalization History Hemoptysis 11/08/2017 Hospitalization History [facility]- COPD 12/2017 Goals Section No Information Health Concerns No Information MEDICAL EQUIPMENT No Information MENTAL STATUS No Information FUNCTIONAL STATUS No Information ASSESSMENTS No Information PLAN OF TREATMENT Next Appt Details Provider Name:Swathi Bishop, 2020-11-2 4 10:00:00 AM, [address] [place] [address], [id number], Insurance Providers Payer Name Payer Address Payer Phone Insured Name Patient Relati onship to Insured Coverage Start Date Coverage End Date [employer] - [employer] MEDICAID [address] [facility] [id number] ESSENCE AGUERO
--- OUTSIDE RECORDS SUMMARY | 2021-07-02 18:57 | CCD | Continuity of Care Document ---
Author Author Kathy SEQUEIRA [facility] Organization Unknown Address [address] [place] [address] Phone [phone] Care Team Providers Care Managed Care Manager Name Role Phone [facility] AUT[facility] mEma Sequeira AUTM [phone] Problems Active Problems Provider Date Moderate recurrent major depression TOYA Swenson, PNP Onset: 05/25/2020 Type II diabetes mellitus uncontrolled TOYA Swenson P FILTER PRESS SUPERVISOR Onset: 05/25/2020 Pure hypercholesterolemia TOYA Swenson, PNP [...] as directed 30units Kalyan Blackburn MD Nystatin 756310Nouv/GM Powder apply to rash in folds of skin on abdomen 2-3 times a day as needed 60gm TOYA Swenson, PNP Metformin HCL 1000mg Tablets 1 by mouth twice a day 60tabs TOYA Swenson, PNP 00 Ventolin HFA 108(90Base) mcg/Act A erosol 2 puff every 4-6 hours as needed 8gm Kalyan Blackburn MD Fluticasone Propionate 50mcg/Act Suspension Nenzel 1 Nenzel In Each Nostril Once Daily Unknown Triamcinolone Acetonide 0.1% Cream Apply To Stoma Skin Two Times A Day Unknown Levothyroxine Sodium 200mcg Tablet s take one tablet by mouth every day on an empty stomach 30tabs Kalyan Blackburn MD Budesonide 1mg/2ML Suspension Inhale 2 Vials Via Nebulizer Two Times A Day Unknown Ipratropium [place]/Albuterol Sulfate 0.5-2.5(3)mg/3ML Solution [place] 1 Vial Via Nebulizer 4 Times A Day as Needed Unknown 2345.comtouch Ultra Strips Use To Test Four Times A Day Unknown 2345.comtouch Ultra 2 w/Device Kit Use To Test Four Times A Day Unknown 2345.comtouch Ultrasoft Lancets Misc Use To Test Four Times A Day Unknown Sodium Chloride 0.9% Nebulizer Inhale 1 Vial Via Nebulizer 2 To 3 Times A Day as Needed With Albuterol Unknown Internal Gaminguch Delica Plus Lancets Extra Fine 33G Plus [...] CPT Code Status Date Vaccine Lot # [id number] Given 05/16/2020 Influenza (>= 6 Months) P.F. [...] H/L Range Note CBC W/Automated Diff 02/02/2021 [facility] CBC W/Automated Diff (SEE NOTE) 1, 2 [...] 80.0 Lymph 28.9 % 25.0 - 40.0 [place] 8.1 % High 3.0 - 8.0 Eos 2.7 % 0.0 - 7.0 Baso 0.7 % 0.0 - 2.5 %Ig 0.3 % High 0.0 - 0.0 %NRBC 0.0 % 0.0 - 0.0 #Neut 6.27 10^3/uL 2.00 - 6.90 #Lymph 3.05 10^3/uL 0.60 - 3.40 #[place] 0.86 10^3/uL 0.00 - 0.90 #Eos 0.29 10^3/uL 0.00 - 0.70 #Baso 0.07 10^3/uL 0.00 - 0.20 #Ig 0.03 10^3/uL 0.00 - 0.10 #NRBC 0.00 10^3/uL 0.00 - 0.00 Manual Diff NOT INDICATED RBC Morph NOT INDICATED Comprehensive Metabolic Panel 02/02/2021 [facility] Comprehensive Metabo (SEE NOTE) 3 Sodium [...] >60 mL/min 4 Laboratory test finding 02/02/2021 [facility] l Hgba1c 9.1 % High 4.4 - 6.1 5 Cve Panel 02/02/2021 [facility] Cve Panel (SEE NOTE) 6 Cholesterol 196 mg/dL 131 - 200 Triglycerides 568 mg/dL High 35 - 160 HDL 28 mg/dL Low 29 - 86 LDL 92 mg/dL 65 - 175 Risk Factor 7.0 High 3.2 - 4.4 LDL/HDL 3.29 High 1.47 - 3.22 7 Laboratory test finding 02/02/2021 [facility] l Magnesium Serum 1.7 mg/dL 1.7 - [...] 30 ng/ml Procedures Date Code Description Status 02/02/2021 29918 Office/Outpatient Established Mo d MDM 30-39 Min Completed 01/17/2021 33486 Office/Outpatient Established Lo w MDM 20-29 Min Completed 10/27/2020 50650 Office/Outpatient Established Mo d MDM 30-39 Min Completed Medical Devices Description No Information Available Encounters Description No Information Available Assessments Date Code Description Provider 04/17/2021 E03.9 Hypothyroidism, unspecified Cadence n Nevills, [facility] 04/17/2021 E11.65 Type 2 diabetes mellitus with hy perglycemia Emma Nevills, [facility] 04/17/2021 E78.00 Pure hypercholesterolemia, unspe cified Emma Nevills, [facility] 04/17/2021 E55.9 Vitamin D deficiency, unspecifie d Emma Nevills, [facility] 04/17/2021 K21.9 Gastro-esophageal reflux disease without esophagitis Emma Nevills, [facility] 04/17/2021 F41.9 Anxiety disorder, unspecified Ka damián Nevills, [facility] 04/17/2021 F33.1 Major depressive disorder, recur rent, moderate Emma Nevills, [facility] 04/17/2021 Z79.899 Other [facility] (current) drug t herapy Emma Nevills, [facility] 02/14/2021 E03.9 Hypothyroidism, unspecified Cadence n Nevills, [facility] 02/14/2021 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 Emma Nevills, [facility] 02/14/2021 I21.9 Acute myocardial infarction, uns pecified Emma Nevills, [facility] 02/14/2021 J44.9 Chronic obstructive pulmonary di sease, unspecified Emma Nevills, [facility] 02/14/2021 F41.9 Anxiety disorder, unspecified Ka damián Nevills, CHANGE MANAGEMENT ANALYST 02/14/2021 F33.1 Major depressive disorder, recur rent, moderate Emma Nevills, CHANGE MANAGEMENT ANALYST 02/14/2021 E11.65 Type 2 diabetes mellitus with hy perglycemia Emma Nevills, [facility] 02/14/2021 E78.00 Pure hypercholesterolemia, unspe cified Emma Nevills, [facility] 02/14/2021 K21.9 Gastro-esophageal reflux disease without esophagitis Emma Nevills, [facility] 02/14/2021 R47.02 Dysphasia Emma Nevills, F 02/14/2021 E55.9 Vitamin D deficiency, unspecifie d Emma Nevills, [facility] 02/14/2021 Z79.899 Other [facility] (current) drug t herapy Emma Nevills, [facility] 02/02/2021 I21.9 Acute myocardial infarction, uns pecified Emma Nevills, [facility] 02/02/2021 J44.9 Chronic obstructive pulmonary di sease, unspecified Emma Nevills, [facility] 02/02/2021 F41.9 Anxiety disorder, unspecified Ka damián Nevills, [facility] 02/02/2021 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 Emma Nevills, [facility] 02/02/2021 F33.1 Major depressive disorder, recur rent, moderate Emma Nevills, [facility] 02/02/2021 E03.9 Hypothyroidism, unspecified Cadence n Nevills, [facility] 02/02/2021 E11.65 Type 2 diabetes mellitus with hy perglycemia Emma Nevills, [facility] 02/02/2021 E78.00 Pure hypercholesterolemia, unspe cified Emma Nevills, [facility] 02/02/2021 K21.9 Gastro-esophageal reflux disease without esophagitis Emma Nevills, [facility] 02/02/2021 Z79.899 Other mcc (current) drug t herapy Emma Nevills, CHANGE MANAGEMENT ANALYST 02/02/2021 R47.02 Dysphasia Emma Nevills, F FILTER PRESS SUPERVISOR 02/02/2021 E55.9 Vitamin D deficiency, unspecifie d Emma Nevills, CHANGE MANAGEMENT ANALYST 01/17/2021 I21.9 Acute myocardial infarction, uns pecified Emma Nevills, CHANGE MANAGEMENT ANALYST 01/17/2021 R22.42 Localized swelling, mass and lum p, left lower limb Emma Nevills, CHANGE MANAGEMENT ANALYST 01/17/2021 J44.9 Chronic obstructive pulmonary di sease, unspecified Emma Nevills, [facility] 01/17/2021 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 Emma Nevills, [facility] 01/17/2021 F41.9 Anxiety disorder, unspecified Ka damián Nevills, CHANGE MANAGEMENT ANALYST 01/17/2021 F33.1 Major depressive disorder, recur rent, moderate Emma Nevills, [facility] 01/17/2021 E03.9 Hypothyroidism, unspecified Cadence n Nevills, [facility] 01/17/2021 E11.65 Type 2 diabetes mellitus with hy perglycemia Emma Nevills, [facility] 01/17/2021 E78.00 Pure hypercholesterolemia, unspe cified Emma Nevills, [facility] 01/17/2021 K21.9 Gastro-esophageal reflux disease without esophagitis Emma Nevills, [facility] 01/17/2021 Z79.899 Other buttermaker helper (current) drug t herapy Emma Nevills, [facility] 11/28/2020 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 Emma Nevills, [facility] 11/28/2020 J44.9 Chronic obstructive pulmonary di sease, unspecified Emma Nevills, [facility] 11/28/2020 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 Emma Nevills, [facility] 11/28/2020 F41.9 Anxiety disorder, unspecified Ka damián Nevills, [facility] 11/28/2020 F33.1 Major depressive disorder, recur rent, moderate Emma Nevills, [facility] 11/28/2020 E03.9 Hypothyroidism, unspecified Cadence n Nevills, [facility] 11/28/2020 E11.65 Type 2 diabetes mellitus with hy perglycemia Emma Sequeira, CHANGE MANAGEMENT ANALYST 11/28/2020 S42.001G Fracture of unspecif ied part of right clavicle, subsequent encounter for fracture with delayed healing Emma Sequeira, CHANGE MANAGEMENT ANALYST 11/28/2020 E78.00 Pure hypercholesterolemia, unspe cified Emma Sequeira, CHANGE MANAGEMENT ANALYST 10/27/2020 Q39.1 Atresia of esophagus with trache [...] Plan of Treatment 04/17/2021 - Emma Sequeira, CHANGE MANAGEMENT ANALYST* E03.9 Hypothyroidism, unspecified* New Labs:* Magnesium Serum, Scheduled: 04/17/21 * TSH Highly Sensitive, Scheduled: 04/17/21 * T4 - Free, Scheduled: 04/17/21 * Comments:* Her laboratory reports dated 02/14/21 were [...] E11.65 Type 2 diabetes mellitus with hyperglycemia* New Labs:* CBC W/Automated Diff, Scheduled: 04/17/21 * Comprehensive Metabolic Panel, Scheduled: 04/17/21 * Hgba1c, Scheduled: 04/17/21 * Cve Panel, Scheduled: 04/17/21 * Vitamin D (25-Hydroxy), Scheduled: 04/17/21 * TSH Highly Sensitive, Scheduled: 04/17/21 * T4 - Free, Scheduled: 04/17/21 * Comments:* Her laboratory reports dated 02/14/21 were [...] are back. * E78.00 Pure hypercholesterolemia, unspecified* New Labs:* Comprehensive Metabolic Panel, Scheduled: 04/17/21 * Hgba1c, Scheduled: 04/17/21 * Cve Panel, Scheduled: 04/17/21 * Comments:* Her laboratory reports dated 02/14/21 were reviewed in detail. Lipid panel showed:CHOL at 196.TRG high at 568.HDL low at 28.LDL at 92.Advised fresh lab work and lab orders were given.She will continue with her current regimen. She was encouraged to maintain a low cholesterol diet and [...] back. * E55.9 Vitamin D deficiency, unspecified* New Labs:* Vitamin D (25-Hydroxy), Scheduled: 04/17/21 * Comments:* Her laboratory reports dated 02/14/21 were reviewed in detail.Vit D low at 11.Advised fresh lab work and lab orders were given. * Follow up:* Will have transport arranged for FU and lab draw. Tele-med FU to review labs once they are back. * K21.9 Gastro-esophageal reflux disease without esophagitis* New Labs:* CBC W/Automated Diff, Scheduled: 04/17/21 * Magnesium Serum, Scheduled: 04/17/21 * Comments:* She was advised to continue with [...] will continue to monitor. * Z79.899 Other [facility]cc (current) drug therapy* New Labs:* CBC W/Automated Diff, Scheduled: 04/17/21 * Comprehensive Metabolic Panel, Scheduled: 04/17/21 * Hgba1c, Scheduled: 04/17/21 * Cve Panel, Scheduled: 04/17/21 * Magnesium Serum, Scheduled: 04/17/21 * Vitamin D (25-Hydroxy), Scheduled: 04/17/21 * TSH Highly Sensitive, Scheduled: 04/17/21 * T4 - Free, Scheduled: 04/17/21 * Comments:* Patient to continue to follow the [...] Refer to Reason for Referral Status Appt Date [facility] Please see this patien t for c/o dysphagia, may require esophageal dilitation. Sent [address] [address] [phone] Rigoberto Ortiz MD Please reevaluate and treat patient. Seen previously by you. S/P recent hospital adm. for PR. See recent [facility] admission notes. Sent 04/19/2021 [id number] [facility] [place] [address] [phone] [facility] Outpatient Mental Health Please see this 40 yo fem steffanie with Hx Bipolar Disorder, most recent episode primarily MDD mixed. Under treated for past 1-2 years. Pt also has s/s OCD and insomnia. Sent [address] [place] [address] [phone] Please see this 40 yo female for TE Fistula Sen t 01/06/2021 Please see this 40 yo female for right fx clavicle 2018 which was not treated, causing pain and getting worse Closed
--- OUTSIDE RECORDS SUMMARY | 2021-07-02 18:57 | CCD | Continuity of Care Document ---
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: 05/25/2020 Pure hypercholesterolemia TOYA Swenson, PNP [...] as directed 30units Kalyan Blackburn MD Nystatin [id number]/GM Powder apply to rash in folds of skin on abdomen 2-3 times a day as needed 60gm TOYA Swenson, PNP Metformin HCL 1000mg Tablets 1 by mouth twice a day 60tabs TOYA Swenson, PNP 00 Ventolin HFA 108(90Base) mcg/Act A erosol 2 puff every 4-6 hours as needed 8gm Kalyan Blackburn MD Fluticasone Propionate 50mcg/Act Suspension [place] 1 [place] In Each Nostril Once Daily Unknown Triamcinolone Acetonide 0.1% Cream Apply To Stoma Skin Two Times A Day Unknown Levothyroxine Sodium 200mcg Tablet s take one tablet by mouth every day on an empty stomach 30tabs Kalyan Blackburn MD Budesonide 1mg/2ML Suspension Inhale 2 Vials Via Nebulizer Two Times A Day Unknown Ipratropium [place]/Albuterol Sulfate 0.5-2.5(3)mg/3ML Solution [place] 1 Vial Via Nebulizer 4 Times A Day as Needed Unknown [employer] Ultra Strips Use To Test Four Times A Day Unknown Needlytouch Ultra 2 w/Device Kit Use To Test Four Times A Day Unknown [employer] Ultrasoft Lancets Misc Use To Test Four Times A Day Unknown Sodium Chloride 0.9% Nebulizer Inhale 1 Vial Via Nebulizer 2 To 3 Times A Day as Needed With Albuterol Unknown [employer] Delica Plus Lancets Extra Fine 33G Plus [...] CPT Code Status Date Vaccine Lot # [id number] Given 05/16/2020 Influenza (>= 6 Months) P.F. [...] H/L Range Note CBC W/Automated Diff 02/02/2021 [facility] CBC W/Automated Diff (SEE NOTE) 1, [...] 80.0 Lymph 28.9 % 25.0 - 40.0 [place] 8.1 % High 3.0 - 8.0 Eos 2.7 % 0.0 - 7.0 Baso 0.7 % 0.0 - 2.5 %Ig 0.3 % High 0.0 - 0.0 %NRBC 0.0 % 0.0 - 0.0 #Neut 6.27 10^3/uL 2.00 - 6.90 #Lymph 3.05 10^3/uL 0.60 - 3.40 #[place] 0.86 10^3/uL 0.00 - 0.90 #Eos 0.29 10^3/uL 0.00 - 0.70 #Baso 0.07 10^3/uL 0.00 - 0.20 #Ig 0.03 10^3/uL 0.00 - 0.10 #NRBC 0.00 10^3/uL 0.00 - 0.00 Manual Diff NOT INDICATED RBC Morph NOT INDICATED Comprehensive Metabolic Panel 02/02/2021 [facility] Comprehensive Metabo (SEE NOTE) 3 Sodium 133 [...] >60 mL/min 4 Laboratory test finding 02/02/2021 [facility] l Hgba1c 9.1 % High 4.4 - 6.1 5 Cve Panel 02/02/2021 [facility] Cve Panel (SEE NOTE) 6 Cholesterol 196 mg/dL 131 - 200 Triglycerides 568 mg/dL High 35 - 160 HDL 28 mg/dL Low 29 - 86 LDL 92 mg/dL 65 - 175 Risk Factor 7.0 High 3.2 - 4.4 LDL/HDL 3.29 High 1.47 - 3.22 7 Laboratory test finding 02/02/2021 [facility] l Magnesium Serum 1.7 mg/dL 1.7 - [...] ng/ml Procedures Date Code Description Status 02/02/2021 19943 Office/Outpatient Established Mo d MDM 30-39 Min Completed 01/17/2021 28146 Office/Outpatient Established Lo w MDM 20-29 Min Completed 10/27/2020 62873 Office/Outpatient Established Mo d MDM 30-39 Min Completed Medical Devices Description No Information Available Encounters Description No Information Available Assessments Date Code Description Provider 04/17/2021 E03.9 Hypothyroidism, unspecified Cadence n Nevills, [facility] 04/17/2021 E11.65 Type 2 diabetes mellitus with hy perglycemia Emma Nevills, [facility] 04/17/2021 E78.00 Pure hypercholesterolemia, unspe cified Emma Nevills, [facility] 04/17/2021 E55.9 Vitamin D deficiency, unspecifie d Emma Nevills, [facility] 04/17/2021 K21.9 Gastro-esophageal reflux disease without esophagitis Emma Nevills, [facility] 04/17/2021 F41.9 Anxiety disorder, unspecified Ka damián Nevills, [facility] 04/17/2021 F33.1 Major depressive disorder, recur rent, moderate Emma Nevills, [facility] 04/17/2021 Z79.899 Other jail (current) drug t herapy Emma Nevills, [facility] 02/14/2021 E03.9 Hypothyroidism, unspecified Cadence n Nevills, [facility] 02/14/2021 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 Mema Nevills, [facility] 02/14/2021 I21.9 Acute myocardial infarction, uns pecified Emma Nevills, [facility] 02/14/2021 J44.9 Chronic obstructive pulmonary di sease, unspecified Emma Nevills, [facility] 02/14/2021 F41.9 Anxiety disorder, unspecified Ka damián Nevills, [employer] 02/14/2021 F33.1 Major depressive disorder, recur rent, moderate Emma Nevills, [employer] COORDIN[employer] 02/14/2021 E11.65 Type 2 diabetes mellitus with hy perglycemia Emma Nevills, [facility] 02/14/2021 E78.00 Pure hypercholesterolemia, unspe cified Emma Nevills, [facility] 02/14/2021 K21.9 Gastro-esophageal reflux disease without esophagitis Emma Nevills, [facility] 02/14/2021 R47.02 Dysphasia Emma Nevills, F 02/14/2021 E55.9 Vitamin D deficiency, unspecifie d Emma Nevills, [facility] 02/14/2021 Z79.899 Other jail (current) drug t herapy Emma Nevills, [facility] 02/02/2021 I21.9 Acute myocardial infarction, uns pecified Emma Nevills, [facility] 02/02/2021 J44.9 Chronic obstructive pulmonary di sease, unspecified Emma Nevills, [facility] 02/02/2021 F41.9 Anxiety disorder, unspecified Ka damián Nevills, [facility] 02/02/2021 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 Emma Nevills, [facility] 02/02/2021 F33.1 Major depressive disorder, recur rent, moderate Emma Nevills, [facility] 02/02/2021 E03.9 Hypothyroidism, unspecified Cadence n Nevills, [facility] 02/02/2021 E11.65 Type 2 diabetes mellitus with hy perglycemia Emma Nevills, [facility] 02/02/2021 E78.00 Pure hypercholesterolemia, unspe cified Emma Nevills, [facility] 02/02/2021 K21.9 Gastro-esophageal reflux disease without esophagitis Emma Nevills, [facility] 02/02/2021 Z79.899 Other jail (current) drug t herapy Emma Nevills, [employer] SERVICES COORDINATOR 02/02/2021 R47.02 Dysphasia Emma Nevills, F [employer]ILROOM MESSENGER 02/02/2021 E55.9 Vitamin D deficiency, unspecifie d Emma Nevills, [employer] SERVICES COORDINATOR 01/17/2021 I21.9 Acute myocardial infarction, uns pecified Emma Nevills, SOCIAL SERVICES COORDINATOR 01/17/2021 R22.42 Localized swelling, mass and lum p, left lower limb Emma Nevills, [employer] SERVICES COORDINATOR 01/17/2021 J44.9 Chronic obstructive pulmonary di sease, unspecified Emma Nevills, [facility] 01/17/2021 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 Emma Nevills, [facility] 01/17/2021 F41.9 Anxiety disorder, unspecified Ka damián Nevills, [employer] SERVICES COORDINATOR 01/17/2021 F33.1 Major depressive disorder, recur rent, moderate Emma Nevills, [facility] 01/17/2021 E03.9 Hypothyroidism, unspecified Cadence n Nevills, [facility] 01/17/2021 E11.65 Type 2 diabetes mellitus with hy perglycemia Emma Nevills, [facility] 01/17/2021 E78.00 Pure hypercholesterolemia, unspe cified Emma Nevills, [facility] 01/17/2021 K21.9 Gastro-esophageal reflux disease without esophagitis Emma Nevills, [facility] 01/17/2021 Z79.899 Other oil heaterman (current) drug t herapy Emma Nevills, [facility] 11/28/2020 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 Emma Nevills, [facility] 11/28/2020 J44.9 Chronic obstructive pulmonary di sease, unspecified Emma Nevills, [facility] 11/28/2020 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 Emma Nevills, [facility] 11/28/2020 F41.9 Anxiety disorder, unspecified Ka damián Nevills, [facility] 11/28/2020 F33.1 Major depressive disorder, recur rent, moderate Emma Nevills, [facility] 11/28/2020 E03.9 Hypothyroidism, unspecified Cadence n Nevills, [facility] 11/28/2020 E11.65 Type 2 diabetes mellitus with hy perglycemia Emma Sequeira, [employer] SERVICES COORDINATOR 11/28/2020 S42.001G Fracture of unspecif ied part of right clavicle, subsequent encounter for fracture with delayed healing Emma Sequeira, [employer] SERVICES COORDINATOR 11/28/2020 E78.00 Pure hypercholesterolemia, unspe cified Emma Sequeira, SOCIAL SERVICES COORDINATOR 10/27/2020 Q39.1 Atresia of esophagus with trache [...] Plan of Treatment 04/17/2021 - Emma Sequeira, SOCIAL SERVICES COORDINATOR* E03.9 Hypothyroidism, unspecified* New Labs:* Magnesium Serum, [...] will continue to monitor. * Z79.899 Other jail (current) drug therapy* New Labs:* CBC W/Automated [...] for Referral Status Appt Date [facility] Please see this patien t for c/o dysphagia, may require esophageal dilitation. Sent [address] [address] [phone] Rigoberto Ortiz MD Please reevaluate and treat patient. Seen previously by you. S/P recent hospital adm. for [place]. See recent [facility] admission notes. Sent 04/19/2021 [id number] [address] [facility] [address] [phone] [facility] Outpatient Mental Health Please see this 40 yo fem steffanie with Hx Bipolar Disorder, most recent episode primarily MDD mixed. Under treated for past 1-2 years. Pt also has s/s OCD and insomnia. Sent [address] [place] [address] [phone] Please see this 40 yo female for TE Fistula Sen t 01/06/2021 Please see this 40 yo female for right fx clavicle 2018 which was not treated, causing pain and getting worse Closed
--- OUTSIDE RECORDS SUMMARY | 2021-07-02 18:57 | CCD | Continuity of Care Document ---
Author Author Kathy SEQUEIAR 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: 05/25/2020 Pure hypercholesterolemia TOYA Swenson, PNP [...] as directed 30units Kalyan Blackburn MD Nystatin [id number]/GM Powder apply to rash in folds of skin on abdomen 2-3 times a day as needed 60gm TOYA Swenson, PNP Metformin HCL 1000mg Tablets 1 by mouth twice a day 60tabs TOYA Swenson, PNP 00 Ventolin HFA 108(90Base) mcg/Act A erosol 2 puff every 4-6 hours as needed 8gm Kalyan Blackburn MD Fluticasone Propionate 50mcg/Act Suspension [place] 1 [place] In Each Nostril Once Daily Unknown Triamcinolone Acetonide 0.1% Cream Apply To Stoma Skin Two Times A Day Unknown Levothyroxine Sodium 200mcg Tablet s take one tablet by mouth every day on an empty stomach 30tabs Kalyan Blackburn MD Budesonide 1mg/2ML Suspension Inhale 2 Vials Via Nebulizer Two Times A Day Unknown Ipratropium [place]/Albuterol Sulfate 0.5-2.5(3)mg/3ML Solution [place] 1 Vial Via Nebulizer 4 Times A Day as Needed Unknown [employer] Ultra Strips Use To Test Four Times A Day Unknown [employer] Ultra 2 w/Device Kit Use To Test Four Times A Day Unknown [employer] Ultrasoft Lancets Misc Use To Test Four Times A Day Unknown Sodium Chloride 0.9% Nebulizer Inhale 1 Vial Via Nebulizer 2 To 3 Times A Day as Needed With Albuterol Unknown [employer] Delica Plus Lancets Extra Fine 33G Plus [...] CPT Code Status Date Vaccine Lot # [id number] Given 05/16/2020 Influenza (>= 6 Months) P.F. [...] H/L Range Note CBC W/Automated Diff 02/02/2021 [facility] CBC W/Automated Diff (SEE NOTE) 1, 2 [...] 80.0 Lymph 28.9 % 25.0 - 40.0 [place] 8.1 % High 3.0 - 8.0 Eos 2.7 % 0.0 - 7.0 Baso 0.7 % 0.0 - 2.5 %Ig 0.3 % High 0.0 - 0.0 %NRBC 0.0 % 0.0 - 0.0 #Neut 6.27 10^3/uL 2.00 - 6.90 #Lymph 3.05 10^3/uL 0.60 - 3.40 #[place] 0.86 10^3/uL 0.00 - 0.90 #Eos 0.29 10^3/uL 0.00 - 0.70 #Baso 0.07 10^3/uL 0.00 - 0.20 #Ig 0.03 10^3/uL 0.00 - 0.10 #NRBC 0.00 10^3/uL 0.00 - 0.00 Manual Diff NOT INDICATED RBC Morph NOT INDICATED Comprehensive Metabolic Panel 02/02/2021 [facility] Comprehensive Metabo (SEE NOTE) 3 Sodium [...] >60 mL/min 4 Laboratory test finding 02/02/2021 [facility] l Hgba1c 9.1 % High 4.4 - 6.1 5 Cve Panel 02/02/2021 [facility] Cve Panel (SEE NOTE) 6 Cholesterol 196 mg/dL 131 - 200 Triglycerides 568 mg/dL High 35 - 160 HDL 28 mg/dL Low 29 - 86 LDL 92 mg/dL 65 - 175 Risk Factor 7.0 High 3.2 - 4.4 LDL/HDL 3.29 High 1.47 - 3.22 7 Laboratory test finding 02/02/2021 [facility] l Magnesium Serum 1.7 mg/dL 1.7 [...] ng/ml Procedures Date Code Description Status 02/02/2021 05128 Office/Outpatient Established Mo d MDM 30-39 Min Completed 01/17/2021 30952 Office/Outpatient Established Lo w MDM 20-29 Min Completed 10/27/2020 72735 Office/Outpatient Established Mo d MDM 30-39 Min Completed Medical Devices Description No Information Available Encounters Description No Information Available Assessments Date Code Description Provider 04/17/2021 E03.9 Hypothyroidism, unspecified Cadence n Nevills, [facility] 04/17/2021 E11.65 Type 2 diabetes mellitus with hy perglycemia Emma Nevills, [facility] 04/17/2021 E78.00 Pure hypercholesterolemia, unspe cified Emma Nevills, [facility] 04/17/2021 E55.9 Vitamin D deficiency, unspecifie d Emma Nevills, [facility] 04/17/2021 K21.9 Gastro-esophageal reflux disease without esophagitis Emma Nevills, [facility] 04/17/2021 F41.9 Anxiety disorder, unspecified Ka damián Nevills, [facility] 04/17/2021 F33.1 Major depressive disorder, recur rent, moderate Emma Nevills, [facility] 04/17/2021 Z79.899 Other [facility] (current) drug t herapy Emma Nevills, [facility] 02/14/2021 E03.9 Hypothyroidism, unspecified Cadence n Nevills, 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 02/14/2021 I21.9 Acute myocardial infarction, uns pecified Emma Nevills, [facility] 02/14/2021 J44.9 Chronic obstructive pulmonary di sease, unspecified Emma Nevills, [facility] 02/14/2021 F41.9 Anxiety disorder, unspecified Ka damián Nevills, [employer] OVER[employer] 02/14/2021 F33.1 Major depressive disorder, recur rent, moderate Emma Nevills, [employer] 02/14/2021 E11.65 Type 2 diabetes mellitus with hy perglycemia Emma Nevills, [facility] 02/14/2021 E78.00 Pure hypercholesterolemia, unspe cified Emma Nevills, [facility] 02/14/2021 K21.9 Gastro-esophageal reflux disease without esophagitis Emma Nevills, [facility] 02/14/2021 R47.02 Dysphasia Emma Nevills, F 02/14/2021 E55.9 Vitamin D deficiency, unspecifie d Emma Nevills, [facility] 02/14/2021 Z79.899 Other [facility] (current) drug t herapy Emma Nevills, [facility] 02/02/2021 I21.9 Acute myocardial infarction, uns pecified Emma Nevills, [facility] 02/02/2021 J44.9 Chronic obstructive pulmonary di sease, unspecified Emma Nevills, [facility] 02/02/2021 F41.9 Anxiety disorder, unspecified Ka damián Nevills, 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 02/02/2021 F33.1 Major depressive disorder, recur rent, moderate Emma Nevills, [facility] 02/02/2021 E03.9 Hypothyroidism, unspecified Cadence n Nevills, [facility] 02/02/2021 E11.65 Type 2 diabetes mellitus with hy perglycemia Emma Nevills, [facility] 02/02/2021 E78.00 Pure hypercholesterolemia, unspe cified Emma Nevills, [facility] 02/02/2021 K21.9 Gastro-esophageal reflux disease without esophagitis Emma Nevills, [facility] 02/02/2021 Z79.899 Other [facility] (current) drug t herapy Emma Nevills, [employer] OVER[employer] 02/02/2021 R47.02 Dysphasia Emma Nevills, F [employer] GL[employer] INST[employer]ER 02/02/2021 E55.9 Vitamin D deficiency, unspecifie d Emma Nevills, [employer] 01/17/2021 I21.9 Acute myocardial infarction, uns pecified Emma Nevills, [employer] OVER[employer] 01/17/2021 R22.42 Localized swelling, mass and lum p, left lower limb Emma Nevills, [employer] OVER[employer] 01/17/2021 J44.9 Chronic obstructive pulmonary di sease, unspecified Emam Nevills, 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 01/17/2021 F41.9 Anxiety disorder, unspecified Ka damián Nevills, [employer] OVERHA[employer]ER 01/17/2021 F33.1 Major depressive disorder, recur rent, moderate Emma Nevills, [facility] 01/17/2021 E03.9 Hypothyroidism, unspecified Cadence n Nevills, [facility] 01/17/2021 E11.65 Type 2 diabetes mellitus with hy perglycemia Emma Nevills, [facility] 01/17/2021 E78.00 Pure hypercholesterolemia, unspe cified Emma Nevills, [facility] 01/17/2021 K21.9 Gastro-esophageal reflux disease without esophagitis Emma Nevills, [facility] 01/17/2021 Z79.899 Other rn long term care (current) drug t herapy Emma Nevills, 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 11/28/2020 J44.9 Chronic obstructive pulmonary di sease, unspecified Emma Nevills, 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 11/28/2020 F41.9 Anxiety disorder, unspecified Ka damián Nevills, [facility] 11/28/2020 F33.1 Major depressive disorder, recur rent, moderate Emma Nevills, [facility] 11/28/2020 E03.9 Hypothyroidism, unspecified Cadence n Nevills, [facility] 11/28/2020 E11.65 Type 2 diabetes mellitus with hy perglycemia Emma Sequeira, [employer] 11/28/2020 S42.001G Fracture of unspecif ied part of right clavicle, subsequent encounter for fracture with delayed healing Emma Sequeira, [employer] 11/28/2020 E78.00 Pure hypercholesterolemia, unspe cified Emma Sequeira, [employer] OVER[employer] 10/27/2020 Q39.1 Atresia of esophagus with trache [...] Plan of Treatment 04/17/2021 - Emma Sequeira, [employer] OVER[employer]* E03.9 Hypothyroidism, unspecified* New Labs:* Magnesium Serum, [...] will continue to monitor. * Z79.899 Other [facility] (current) drug therapy* New Labs:* CBC W/Automated [...] to Reason for Referral Status Appt Date [facility] Please see this patien t for c/o dysphagia, may require esophageal dilitation. Sent [address] [address] [phone] Rigoberto Ortiz MD Please reevaluate and treat patient. Seen previously by you. S/P recent hospital adm. for [place]. See recent [facility] admission notes. Sent 04/19/2021 [id number] [address] [facility] [place] [address] [phone] [facility] Outpatient Mental Health Please see this 40 yo fem steffanie with Hx Bipolar Disorder, most recent episode primarily MDD mixed. Under treated for past 1-2 years. Pt also has s/s OCD and insomnia. Sent [address] [place] [address] [phone] Please see this 40 yo female for TE Fist[place] Sen t 01/06/2021 Please see this 40 yo female for right fx clavicle 2018 which was not treated, causing pain and getting worse Closed
--- OUTSIDE RECORDS SUMMARY | 2021-07-02 18:58 | CCD ---
Author Author [facility] Organization [facility] Address Unknown Phone Unavailable Care Team Providers Care Capacity Management Specialist Name Role Phone Dario, L Swathi PLAYER DEVELOPMENT EXECUTIVE Unavailable Unavailable [place], L Swathi PLAYER DEVELOPMENT EXECUTIVE Unavailable Unavailable [place], L Swathi PLAYER DEVELOPMENT EXECUTIVE Unavailable Unavailable [place], L Swathi PLAYER DEVELOPMENT EXECUTIVE Unavailable Unavailable Dario, L Swathi PLAYER DEVELOPMENT EXECUTIVE Unavailable Unavailable Dario, L Swathi PLAYER DEVELOPMENT EXECUTIVE Unavailable Unavailable Dario, L Swathi PLAYER DEVELOPMENT EXECUTIVE Unavailable Unavailable Dario, L Swathi PLAYER DEVELOPMENT EXECUTIVE Unavailable Unavailable [place], L Swathi PLAYER DEVELOPMENT EXECUTIVE Unavailable Unavailable Dario, L Swathi PLAYER DEVELOPMENT EXECUTIVE Unavailable Unavailable Dario, L Swathi PLAYER DEVELOPMENT EXECUTIVE Unavailable Unavailable Dario, L Swathi PLAYER DEVELOPMENT EXECUTIVE Unavailable Unavailable [place], L Swathi PLAYER DEVELOPMENT EXECUTIVE Unavailable Unavailable [place], L Swathi PLAYER DEVELOPMENT EXECUTIVE Unavailable Unavailable Dario, L Swathi PLAYER DEVELOPMENT EXECUTIVE Unavailable Unavailable Dario, L Swathi PLAYER DEVELOPMENT EXECUTIVE Unavailable Unavailable Dario, L Swathi PLAYER DEVELOPMENT EXECUTIVE Unavailable Unavailable [place], L Swathi PLAYER DEVELOPMENT EXECUTIVE Unavailable Unavailable [place], L Swathi PLAYER DEVELOPMENT EXECUTIVE Unavailable Unavailable [place], L Swathi PLAYER DEVELOPMENT EXECUTIVE Unavailable Unavailable [place], L Swathi PLAYER DEVELOPMENT EXECUTIVE Unavailable Unavailable Dario, L Swathi PLAYER DEVELOPMENT EXECUTIVE Unavailable Unavailable Dario, L Swathi PLAYER DEVELOPMENT EXECUTIVE Unavailable Unavailable Dario, L Swathi PLAYER DEVELOPMENT EXECUTIVE Unavailable Unavailable [place], L Swathi PLAYER DEVELOPMENT EXECUTIVE Unavailable Unavailable [place], L Swathi PLAYER DEVELOPMENT EXECUTIVE Unavailable Unavailable Dario, L Swathi PLAYER DEVELOPMENT EXECUTIVE Unavailable Unavailable Dario, L Swathi PLAYER DEVELOPMENT EXECUTIVE Unavailable Unavailable Dario, L Swathi PLAYER DEVELOPMENT EXECUTIVE Unavailable Unavailable [place], L Swathi PLAYER DEVELOPMENT EXECUTIVE Unavailable Unavailable [place], L Swathi PLAYER DEVELOPMENT EXECUTIVE Unavailable Unavailable Dario, L Swathi PLAYER DEVELOPMENT EXECUTIVE Unavailable Unavailable Dario, L Swathi PLAYER DEVELOPMENT EXECUTIVE Unavailable Unavailable [place], L Swathi PLAYER DEVELOPMENT EXECUTIVE Unavailable Unavailable [place], L Swathi PLAYER DEVELOPMENT EXECUTIVE Unavailable Unavailable [place], L Swathi PLAYER DEVELOPMENT EXECUTIVE Unavailable Unavailable Dario, L Swathi PLAYER DEVELOPMENT EXECUTIVE Unavailable Unavailable Dario, L Swathi PLAYER DEVELOPMENT EXECUTIVE Unavailable Unavailable [place], L Swathi PLAYER DEVELOPMENT EXECUTIVE Unavailable Unavailable Dario, L Swathi PLAYER DEVELOPMENT EXECUTIVE Unavailable Unavailable PETROFF, TIGIST PA Unavailable Unavailable PETROFF, TIGIST PA Unavailable Unavailable PETROFF, TIGIST PA Unavailable Unavailable PETROFF, TIGIST PA Unavailable Unavailable PETROFF, TIGIST PA Unavailable Unavailable PETROFF, TIGIST PA Unavailable Unavailable PETROFF, TIGIST PA Unavailable Unavailable PETROFF, TIGIST PA Unavailable Unavailable Suki Kinney MD Unavailable Unavailable Suki Kinney MD Unavailable Unavailable Suki Kinney MD Unavailable Unavailable Suki Kinney MD Unavailable Unavailable Suki Kinney MD Unavailable Unavailable Suki Kinney MD Unavailable Unavailable SYMENOW, G CHRISTOPHER PA Unavailable [...] Unavailable SYMENOW, G CHRISTOPHER PA Unavailable Unavailable Rydberg, Margaret PA Unavailable [...] Unavailable Unavailable Rydberg, Margaret PA Unavailable Unavailable BACA SR, JOSE SORENSEN MD [...] JOSE SORENSEN MD Unavailable Unavailable BACA SR, JOES SORENSEN MD Unavailable Unavailable BACA SR, JOSE [...] BACA SR, JOSE SORENSEN MD Unavailable Unavailable RECIO, A NICK PA Unavailable Unavailable RECIO, A NICK PA Unavailable Unavailable RECIO, A NICK PA Unavailable Unavailable RECIO, A NICK PA Unavailable Unavailable RECIO, A NICK PA Unavailable Unavailable RECIO, A NICK PA Unavailable Unavailable RECIO, A NICK PA Unavailable Unavailable RECIO, A NICK PA Unavailable Unavailable RECIO, A NICK PA Unavailable Unavailable RECIO, A NICK PA Unavailable Unavailable RECIO, A NICK PA Unavailable Unavailable RECIO, A NICK PA Unavailable Unavailable RECIO, A NICK PA Unavailable Unavailable PRIYANKA YOUSIF JR Unavailable Unavailable MIRANDA, RUSH SUKUMAR PA Unavailable [...] Unavailable MIRANDA, RUSH SUKUMAR PA Unavailable Unavailable KARL, Michelle PA-C Unavailable Unavailable KARL, Michelle PA-C Unavailable Unavailable KARL, Michelle PA-C Unavailable Unavailable KARL, Michelle PA-C Unavailable Unavailable KARL, Michelle PA-C Unavailable Unavailable KARL, Michelle PA-C Unavailable Unavailable KARL, Michelle PA-C Unavailable Unavailable KARL, Michelle PA-C Unavailable Unavailable KARL, Michelle PA-C Unavailable Unavailable KARL, Michelle PA-C Unavailable Unavailable KARL, Michelle PA-C Unavailable Unavailable KARL, Michelle PA-C Unavailable Unavailable KARL, Michelle PA-C Unavailable Unavailable KARL, Michelle PA-C Unavailable Unavailable KARL, Michelle PA-C Unavailable Unavailable KARL, Michelle PA-C Unavailable Unavailable KARL, Michelle PA-C Unavailable Unavailable KARL, Michelle PA-C Unavailable Unavailable KARL, Michelle PA-C Unavailable Unavailable KARL, Michelle PA-C Unavailable Unavailable KARL, Michelle PA-C Unavailable Unavailable KARL, Michelle PA-C Unavailable Unavailable KARL, Michelle PA-C Unavailable Unavailable KARL, Michelle PA-C Unavailable Unavailable KARL, Michelle PA-C Unavailable Unavailable KARL, Michelle PA-C Unavailable Unavailable KARL, Michelle PA-C Unavailable Unavailable KARL, Michelle PA-C Unavailable Unavailable KARL, Michelle PA-C Unavailable Unavailable KARL, Michelle PA-C Unavailable Unavailable KARL, Michelle PA-C Unavailable Unavailable KARL, Michelle PA-C Unavailable Unavailable KARL, Michelle PA-C Unavailable Unavailable KARL, Michelle PA-C Unavailable Unavailable KARL, Michelle PA-C Unavailable Unavailable KARL, Michelle PA-C Unavailable Unavailable KARL, Michelle PA-C Unavailable Unavailable KARL, Michelle PA-C Unavailable Unavailable KARL, Michelle PA-C Unavailable Unavailable KARL, Michelle PA-C Unavailable Unavailable KARL, Michelle PA-C Unavailable Unavailable KARL, Michelle PA-C Unavailable Unavailable KARL, Michelle PA-C Unavailable Unavailable KARL, Michelle PA-C Unavailable Unavailable KARL, Michelle PA-C Unavailable Unavailable MOSHE YOUSIF JR Unavailable [phone] MOSHE YOUSIF JR Unavailable [phone] MOSHE YOUSIF JR Unavailable [phone] JAROD PATEL MD Unavailable Unavailable JAROD PATEL MD Unavailable Unavailable JAROD PATEL MD Unavailable Unavailable JAROD PATEL MD Unavailable Unavailable Marzouk, F Micha Unavailable Unavailable Marzouk, F Micha Unavailable Unavailable Marzouk, F Micha Unavailable Unavailable Marzouk, F Micha Unavailable Unavailable Marzouk, F Micha Unavailable Unavailable Marzouk, F Micha Unavailable Unavailable Marzouk, F Mciha Unavailable Unavailable Marzouk, F Micha Unavailable Unavailable [...] Unavailable Unavailable Marzouk, F Micha Unavailable Unavailable ZEGIL, D MARBELLA APPARATUS OPERATOR Unavailable Unavailable ZEGIL, D MARBELLA APPARATUS OPERATOR Unavailable Unavailable ZEGIL, D MARBELLA APPARATUS OPERATOR Unavailable Unavailable Nevills, C Emma CERTIFIED EMERGENCY VEHICLE TECHNICIAN Unavailable Unavailable Nevills, C Emma CERTIFIED EMERGENCY VEHICLE TECHNICIAN Unavailable Unavailable Nevills, C Emma CERTIFIED EMERGENCY VEHICLE TECHNICIAN Unavailable Unavailable Nevills, C Emma CERTIFIED EMERGENCY VEHICLE TECHNICIAN Unavailable Unavailable Nevills, C Emma CERTIFIED EMERGENCY VEHICLE TECHNICIAN Unavailable Unavailable Nevills, C Emma CERTIFIED EMERGENCY VEHICLE TECHNICIAN Unavailable Unavailable Nevills, C Emma CERTIFIED EMERGENCY VEHICLE TECHNICIAN Unavailable Unavailable Nevills, C Emma CERTIFIED EMERGENCY VEHICLE TECHNICIAN Unavailable Unavailable Nevills, C Emma CERTIFIED EMERGENCY VEHICLE TECHNICIAN Unavailable Unavailable Nevills, C Emma CERTIFIED EMERGENCY VEHICLE TECHNICIAN Unavailable Unavailable Nevills, C Emma CERTIFIED EMERGENCY VEHICLE TECHNICIAN Unavailable Unavailable Nevills, C Emma CERTIFIED EMERGENCY VEHICLE TECHNICIAN Unavailable Unavailable Nevills, C Emma CERTIFIED EMERGENCY VEHICLE TECHNICIAN Unavailable Unavailable Nevills, C Emma CERTIFIED EMERGENCY VEHICLE TECHNICIAN Unavailable Unavailable Nevills, C Emma CERTIFIED EMERGENCY VEHICLE TECHNICIAN Unavailable Unavailable Nevills, C Emma CERTIFIED EMERGENCY VEHICLE TECHNICIAN Unavailable Unavailable Nevills, C Emma CERTIFIED EMERGENCY VEHICLE TECHNICIAN Unavailable Unavailable Nevills, C Emma CERTIFIED EMERGENCY VEHICLE TECHNICIAN Unavailable Unavailable Nevills, C Emma CERTIFIED EMERGENCY VEHICLE TECHNICIAN Unavailable Unavailable Nevills, C Emma CERTIFIED EMERGENCY VEHICLE TECHNICIAN Unavailable Unavailable Nevills, C Emma CERTIFIED EMERGENCY VEHICLE TECHNICIAN Unavailable Unavailable Nevills, C Emma CERTIFIED EMERGENCY VEHICLE TECHNICIAN Unavailable Unavailable Nevills, C Emma CERTIFIED EMERGENCY VEHICLE TECHNICIAN Unavailable Unavailable Nevills, C Emma CERTIFIED EMERGENCY VEHICLE TECHNICIAN Unavailable Unavailable Nevills, C Emma CERTIFIED EMERGENCY VEHICLE TECHNICIAN Unavailable Unavailable Nevills, C Emma CERTIFIED EMERGENCY VEHICLE TECHNICIAN Unavailable Unavailable Nevills, C Emma CERTIFIED EMERGENCY VEHICLE TECHNICIAN Unavailable Unavailable Nevills, C Emma CERTIFIED EMERGENCY VEHICLE TECHNICIAN Unavailable Unavailable Nevills, C Emma CERTIFIED EMERGENCY VEHICLE TECHNICIAN Unavailable Unavailable Nevills, C Emma CERTIFIED EMERGENCY VEHICLE TECHNICIAN Unavailable Unavailable Nevills, C Emma CERTIFIED EMERGENCY VEHICLE TECHNICIAN Unavailable Unavailable Nevills, C Emma CERTIFIED EMERGENCY VEHICLE TECHNICIAN Unavailable Unavailable Nevills, C Emma CERTIFIED EMERGENCY VEHICLE TECHNICIAN Unavailable Unavailable Nevills, C Emma CERTIFIED EMERGENCY VEHICLE TECHNICIAN Unavailable Unavailable Nevills, C Emma CERTIFIED EMERGENCY VEHICLE TECHNICIAN Unavailable Unavailable Sarthak, A Adina APPARATUS OPERATOR Unavailable Unavailable Sarthak, A Adina APPARATUS OPERATOR Unavailable Unavailable Sarthak, A Adina APPARATUS OPERATOR Unavailable Unavailable Sarthak, A Adina APPARATUS OPERATOR Unavailable Unavailable Sarthak, A Adina APPARATUS OPERATOR Unavailable Unavailable Sarthak, A Adina APPARATUS OPERATOR Unavailable Unavailable Sarthak, A Adina APPARATUS OPERATOR Unavailable Unavailable Sarthak, A Adina APPARATUS OPERATOR Unavailable Unavailable Sarthak, A Adina APPARATUS OPERATOR Unavailable Unavailable Sarthak, A Adina APPARATUS OPERATOR Unavailable Unavailable Sarthak, A Adina APPARATUS OPERATOR Unavailable Unavailable Sarthak, A Adina APPARATUS OPERATOR Unavailable Unavailable Sarthak, A Adina APPARATUS OPERATOR Unavailable Unavailable Sarthak, A Adina APPARATUS OPERATOR Unavailable Unavailable Sarthak, A Adina APPARATUS OPERATOR Unavailable Unavailable Sarthak, A Adina APPARATUS OPERATOR Unavailable Unavailable Sarthak, A Adina APPARATUS OPERATOR Unavailable Unavailable Sarthak, A Adina APPARATUS OPERATOR Unavailable Unavailable Sarthak, A Adina APPARATUS OPERATOR Unavailable Unavailable Sarthak, A Adina APPARATUS OPERATOR Unavailable Unavailable Sarthak, A Adina APPARATUS OPERATOR Unavailable Unavailable Sarthak, A Adina APPARATUS OPERATOR Unavailable Unavailable Sarthak, A Adina APPARATUS OPERATOR Unavailable Unavailable Sarthak, A Adina APPARATUS OPERATOR Unavailable Unavailable Sarthak, A Adina APPARATUS OPERATOR Unavailable Unavailable Sarthak, A Adina APPARATUS OPERATOR Unavailable Unavailable Sarthak, A Adina APPARATUS OPERATOR Unavailable Unavailable Sarthak, A Adina APPARATUS OPERATOR Unavailable Unavailable Sarthak, A Adina APPARATUS OPERATOR Unavailable Unavailable Sarthak, A Adina APPARATUS OPERATOR Unavailable Unavailable Sarthak, A Adina APPARATUS OPERATOR Unavailable Unavailable Sarthak, A Adina APPARATUS OPERATOR Unavailable Unavailable Sarthak, A Adina APPARATUS OPERATOR Unavailable Unavailable Sarthak, A Adina APPARATUS OPERATOR Unavailable Unavailable Sarthak, A Adina APPARATUS OPERATOR Unavailable Unavailable Sarthak, A Adina APPARATUS OPERATOR Unavailable Unavailable Sarthak, A Adina APPARATUS OPERATOR Unavailable Unavailable Sarthak, A Adina APPARATUS OPERATOR Unavailable Unavailable Sarthak, A Adina APPARATUS OPERATOR Unavailable Unavailable Sarthak, A Adina APPARATUS OPERATOR Unavailable Unavailable Sarthak, A Adina APPARATUS OPERATOR Unavailable Unavailable Sarthak, A Adina APPARATUS OPERATOR Unavailable Unavailable Sarthak, A Adina APPARATUS OPERATOR Unavailable Unavailable Sarthak, A Adina APPARATUS OPERATOR Unavailable Unavailable Sarthak, A Adina APPARATUS OPERATOR Unavailable Unavailable Sarthak, A Adina APPARATUS OPERATOR Unavailable Unavailable Sarthak, A Adina APPARATUS OPERATOR Unavailable Unavailable Sarthak, A Adina APPARATUS OPERATOR Unavailable Unavailable Sarthak, A Adina APPARATUS OPERATOR Unavailable Unavailable Sarthak, A Adina APPARATUS OPERATOR Unavailable Unavailable Sarthak, A Adina APPARATUS OPERATOR Unavailable Unavailable Sarthak, A Adina APPARATUS OPERATOR Unavailable Unavailable Sarthak, A Adina APPARATUS OPERATOR Unavailable Unavailable Sarthak, A Adina APPARATUS OPERATOR Unavailable Unavailable Sarthak, A Adina APPARATUS OPERATOR Unavailable Unavailable Sarthak, A Adina APPARATUS OPERATOR Unavailable Unavailable Franco, Marilyn Phyllis ANP-BC Unavailable Unavailable Franco, Marilyn Phyllis ANP-BC Unavailable Unavailable Franco, Marilyn Phyllis ANP-BC Unavailable Unavailable Rfanco, Marilyn Phyllis ANP-BC Unavailable Unavailable Franco, Marilyn [...] Unavailable Franco, Marilyn Phyllis ANP-BC Unavailable Unavailable Re-disclosure Warning The records that [...] is protected by Article 27-F of the [facility] Public Health law. If you continue you may have access to information: Regarding HIV / AIDS; Provided by facilities licensed or operated by the [facility] Office of Mental Health; or Provided by the [facility] Office for People With Developmental Disabilities. If such information is present, then the following [facility] mandated warning applies: This information [...] law may result in a fine or correction sentence or both. A general authorization for the release of medical or other information is NOT sufficient authorization for further disc losure. Allergies and Adverse Reactions Type Description Substance Reaction Status Data Source(s ) Drug allergy Drug allergy Quinolones [facility] Drug allergy Drug allergy Sulfa (Sulfonamide Antibiotics) Rash I [facility] Family History Family Member Name Family Member Gender Family Member Status Date o f Status Description Data Source(s) Unknown Unknown Problem MEDENT ([facility]) Unknown Female Problem [facility] ([facility]) Unknown Female Problem MEDENT ([facility]) Encounters Encounter Providers Location Date Indications Data Source(s ) Preadmit Attender: Swathi KAMARA 06/23/2021 02:00:00 PM [facility] Outpatient Attender: Swathi KAMARA 06/14/2021 09:53:00 AM [facility] Outpatient [facility] 06/14/2021 12:00:00 AM EST eCW1 ([facility]) Emergency Attender: Jose Kinney MD ED-ED 05/23 11:29:00 AM EST - 06/10/2021 01:33:00 PM EST DIFFICULTY BREATHING [facility] DIFFICULTY BREATHING Patient discharged. Outpatient Attender: Michelle BARAJAS PA-C 06/09/2021 12: 00:00 AM [facility] Outpatient [facility] 06/08/2021 12:00:00 AM EST eCW1 ([facility]) Outpatient Attender: NICK FAROOQ 06/05/2021 12:00:00 AM [facility] Outpatient Attender: Emma Sequeira NP 04/17 09:46:00 AM EDT - 04/17/2021 09:46:00 AM EDT [facility] Outpatient Attender: Emma Sequeira NP 02/02 09:46:00 AM EDT - 02/02/2021 09:46:00 AM EDT [facility] Outpatient Attender: Emma Sequeira NP 01/17 09:36:00 AM EDT - 01/17/2021 09:36:00 AM EDT [facility] Emergency Attender: MARBELLA BLOCK [facility] ED-ED 07/2020 07:20:00 PM EDT - 12/20/2020 07:45:00 PM EDT PAIN FROM THROAT TO EAR LEFT SIDE [facility] PAIN FROM THROAT TO EAR LEFT SIDE Patient discharged. Outpatient Attender: Micha Goss 11/08/2020 12:00:00 AM [facility] Outpatient Attender: Phyllis PITTMAN 02/2021 02:03:00 PM EDT - 10/27/2020 02:03:00 PM EDT [facility] Emergency Attender: JAROD PATEL MD 07A-ERMADULT 10/12/2020 12:00:00 AM EDT - 10/12/2020 10:27:00 PM EDT Other acute postprocedural pain [facility] Other acute postprocedural pain Patient discharged. Outpatient Attender: Micha Goss 08/31/2020 12:00:[address] [facility] Emergency Attender: MARBELLA BLOCK [facility] ED-ED 07/2019 08:23:00 PM EST - 06/21/2020 09:29:00 PM EST HARD TIME BREATHING [facility] HARD TIME BREATHING Patient discharged. Outpatient Attender: Phyllis PITTMAN 04/22 01:04:00 PM EDT - 05/16/2020 01:04:00 PM EDT [facility] Emergency Attender: SUKUMAR KAUFMANeferrer: Joseph BACA EMERGENCY ROOM-ER 12/01/2019 02:36:00 AM EDT - 12/01/2019 06:50:00 AM [facility] Patient discharged. Emergency Attender: LAURENCE KAUFMANeferrer: EDU BACA SR 04/02/2018 12:14:00 AM EDT - 04/02/2018 01:35:00 AM [facility] Emergency Attender: MOSHE YOUSIF JR Attender: MOSHE YOUSIF JRReferrer: Adina De León [facility] EMERGENCY ROOM-ER 03/15/2018 11:49:00 AM EDT - 03/15/2018 01:00:00 PM [facility] Emergency Attender: TIGIST KAUFMANeferrer: Jessy De León [facility] EMERGENCY ROOM-ER 11/08/2017 12:27:00 PM EDT - 11/08/2017 02:20:00 PM [facility] Outpatient Attender: Margaret Rivaserrer: Saba Denney [place] [facility] 07/30/2012 02:51:00 PM EST [facility] Emergency Attender: LAURENCE FAROOQ EMERGENCY ROOM- ER 03/13/2012 02:04:00 PM EDT - 03/13/2012 06:15:00 PM [facility] Immunizations Vaccine Date Status Description Data Source(s) New in 2011. IIV4 06/14/2021 11:21:00 AM EST completed eCW1 ([facility]) New in 2011. IIV4 05/16/2020 01:38:00 PM EDT completed MEDENT ([facility]) Medications Medication Brand Name Start Date Product Form Dose Route Admi nistrative Instructions Pharmacy Instructions Status Indications Reaction Description Data Source(s) 0.5 mg/2 mL 06/21/2021 12:00:00 AM EST suspension for nebuli zation 120 INHALE ONE VIAL VIA NEBULIZER TWICE A DAY INHALE ONE VIAL VIA NEBULIZER TWICE A DAY SOLD: 06/25/2021 [facility] Albuterol 0.833 MG/ML / Ipratropium Brom dong 0.167 MG/ML Inhalation Solution 0.5 mg-3 mg(2.5 mg base)/3 mL IPRATROPIUM/ALBUTEROL SULFATE 06/14/2021 12:00:00 AM EST solution for nebulization 360 INHALE THE CONTENTS OF ONE VIAL VIA NEBULIZER EVERY 6 HOURS NEEDED INHALE THE CONTENTS OF ONE VIAL VIA NEBU LIZER EVERY 6 HOURS NEEDED SOLD: 06/14/2021 [facility] Cephalexin 500 MG Oral Capsule CEPHALEXIN 06/10/2021 12:00:00 AM EST capsule 40 TAKE ONE CAPSULE BY MOUTH FOUR TIMES A DAY TAKE ONE CA PSULE BY MOUTH FOUR TIMES A DAY SOLD: 06/11/2021 [facility] doxycycline hyclate 100 MG Oral Capsule DOXYCYCLINE HYCLATE 06/10/2021 12:00:00 AM EST capsule 20 TAKE ONE CAPSULE BY MOUTH EV CARLOZ 12 HOURS FOR 10 DAYS TAKE ONE CAPSULE BY MOUTH EVERY 12 HOURS FOR 10 DAYS SOLD: 06/11/2021 [facility] montelukast 10 MG Oral Tablet MONTELUKAST SODIUM 05/08/2021 12:0 0:00 AM EDT tablet 30 TAKE ONE TABLET BY MOUTH EVERY D AY TAKE ONE TABLET BY MOUTH EVERY DAY SOLD: 05/09/2021 [facility] 40 mg 05/08/2021 12:00:00 AM EDT capsule,delayed release (DR/EC) 90 TAKE ONE CAPSULE BY MOUTH EVERY DAY TAKE ONE CAPSULE BY MOUTH EVERY DAY SOLD: 05/09/2021 [facility] 81 mg 03/23/2021 12:00:00 AM EDT tablet,chewable 30 CHEW ONE TABLET BY MOUTH EVERY DAY DIRECTED CHEW ONE TABLET BY MOUTH EVERY DAY DIRECTED SOLD: 03/23/2021 [facility] atorvastatin 20 MG Oral Tablet ATORVASTATIN CALCIUM 03/23/2021 1 2:00:00 AM EDT tablet 30 TAKE ONE TABLET BY MOUTH EVERY D AY TAKE ONE TABLET BY MOUTH EVERY DAY SOLD: 03/23/2021 [facility] 81 mg 03/23/2021 12:00:00 AM EDT tablet,chewable 30 CHEW ONE TABLET BY MOUTH EVERY DAY DIRECTED CHEW ONE TABLET BY MOUTH EVERY DAY DIRECTED SOLD: 05/09/2021 [facility] atorvastatin 20 MG Oral Tablet ATORVASTATIN CALCIUM 03/23/2021 1 2:00:00 AM EDT tablet 30 TAKE ONE TABLET BY MOUTH EVERY D AY TAKE ONE TABLET BY MOUTH EVERY DAY SOLD: 05/09/2021 [facility] montelukast 10 MG Oral Tablet MONTELUKAST SODIUM 03/10/2021 12:0 0:00 AM EDT tablet 30 TAKE ONE TABLET BY MOUTH EVERY D AY TAKE ONE TABLET BY MOUTH EVERY DAY SOLD: 03/13/2021 [facility] 200 mcg 02/23/2021 12:00:00 AM EDT tablet 30 TAKE 1 TABLET BY MOUTH EVERY DAY ON AN EMPTY STOMACH TAKE 1 TABLET BY MOUTH EVERY DAY ON AN EMPTY STOMACH SOLD: 02/27/2021 [facility] 25 mg 02/08/2021 12:00:00 AM EDT tablet 120 TAKE ONE TABLET BY MOUTH 1-4 TIMES DAILY NEEDED FOR ANXIETY TAKE ONE TABLET BY MOUTH 1-4 TIMES DAILY NEEDED FOR ANXIETY SOLD: 02/08/2021 [facility] Cyclobenzaprine hydrochloride 10 MG Oral Tablet CYCLOBENZAPR INE HCL 02/08/2021 12:00:00 AM EDT tablet 90 TAKE ONE TABLET BY MOUTH THREE TIMES A DAY NEEDED FOR MUSCLE SPASMS TAKE ONE TABLET BY MOUTH THREE TIMES A D AY NEEDED FOR MUSCLE SPASMS SOLD: 02/08/2021 [facility] 90 mcg/actuation 02/02/2021 12:00:00 AM EDT HFA aerosol inha ler 18 INHALE TWO PUFFS BY MOUTH EVERY 4 TO 6 HOURS NEEDED INHALE TWO PUFFS BY MOUTH EVERY 4 TO 6 HOURS NEEDED SOLD: 05/09/2021 [facility] [employer] 02/02/2021 12:00:00 AM EDT active MEDENT ([facility]) hydrocortisone acetate 25 MG Rectal Suppository [Anucort-HC] Anucort-HC 02/02/2021 12:00:00 AM EDT active MEDENT ([facility]) 90 mcg/actuation 02/02/2021 12:00:00 AM EDT HFA aerosol inha ler 18 INHALE TWO PUFFS BY MOUTH EVERY 4 TO 6 HOURS NEEDED INHALE TWO PUFFS BY MOUTH EVERY 4 TO 6 HOURS NEEDED SOLD: 03/19/2021 [facility] Motorized Scooter 02/02/2021 12:00:00 AM EDT active MEDENT ([facility]) 90 mcg/actuation 02/02/2021 12:00:00 AM EDT HFA aerosol inha ler 18 INHALE TWO PUFFS BY MOUTH EVERY 4 TO 6 HOURS NEEDED INHALE TWO PUFFS BY MOUTH EVERY 4 TO 6 HOURS NEEDED SOLD: 02/05/2021 [facility] 60 mg 01/16/2021 12:00:00 AM EDT capsule,delayed release (DR/EC) 30 TAKE ONE CAPSULE BY MOUTH EVERY DAY TAKE ONE CAPSULE BY MOUTH EVERY DAY SOLD: 03/07/2021 [facility] 40 mg 01/16/2021 12:00:00 AM EDT capsule,delayed release (DR/EC) 90 TAKE ONE CAPSULE BY MOUTH EVERY DAY TAKE ONE CAPSULE BY MOUTH EVERY DAY SOLD: 01/16/2021 [facility] 60 mg 01/16/2021 12:00:00 AM EDT capsule,delayed release (DR/EC) 30 TAKE ONE CAPSULE BY MOUTH EVERY DAY TAKE ONE CAPSULE BY MOUTH EVERY DAY SOLD: 01/16/2021 [facility] 60 mg 01/16/2021 12:00:00 AM EDT capsule,delayed release (DR/EC) 30 TAKE ONE CAPSULE BY MOUTH EVERY DAY TAKE ONE CAPSULE BY MOUTH EVERY DAY SOLD: 04/22/2021 [facility] Amoxicillin 875 MG / Clavulanate 125 MG Oral Tablet 87 5-125 mg AMOXICILLIN/POTASSIUM CLAV 01/05/2021 12:00:00 AM EDT tablet 10 TAKE ONE TABLET BY MOUTH TWICE A DAY UNTIL GONE TAKE ONE TABLET BY MOUTH TWICE A DAY UNTIL GONE SOLD: 01/06/2021 [facility] atorvastatin 20 MG Oral Tablet ATORVASTATIN CALCIUM 01/05/2021 1 2:00:00 AM EDT tablet 30 TAKE ONE TABLET BY MOUTH EVERY D AY TAKE ONE TABLET BY MOUTH EVERY DAY SOLD: 01/06/2021 [facility] 81 mg 01/05/2021 12:00:00 AM EDT tablet,delayed release (DR/EC) 30 TAKE ONE TABLET BY MOUTH EVERY DAY TAKE ONE TABLET BY MOUTH EVERY DAY SOLD: 01/06/2021 [facility] Metronidazole 500 MG Oral Tablet METRONIDAZOLE 01/05/2021 12:0 0:00 AM EDT tablet 15 TAKE ONE TABLET BY MOUTH THREE T IMES A DAY UNTIL GONE TAKE ONE TABLET BY MOUTH THREE TIMES A DAY UNTIL GONE SOLD: 01/06/2021 [facility] doxycycline hyclate 100 MG Oral Tablet DOXYCYCLINE HYCLATE 0 01/05/2021 12:00:00 AM EDT tablet 10 TAKE ONE TABLET BY MOUTH TWI CE A DAY TAKE ONE TABLET BY MOUTH TWICE A DAY SOLD: 01/06/2021 [facility] 20 mg 12/21/2020 12:00:00 AM EDT tablet 15 TAKE THREE TABLETS BY MOUTH EVERY DAY FOR 5 DAYS TAKE THREE TABLETS BY MOUTH EVERY DAY FOR 5 DAYS SOLD: 12/21/2020 [facility] 500 mg 12/21/2020 12:00:00 AM EDT tablet 10 TAKE ONE TABLET BY MOUTH EVERY DAY FOR 10 DAYS TAKE ONE TABLET BY MOUTH EVERY DAY FOR 10 DAYS SOLD: [facility] 60 mg 12/09/2020 12:00:00 AM EDT capsule,delayed release (DR/EC) 30 TAKE ONE CAPSULE BY MOUTH EVERY DAY TAKE ONE CAPSULE BY MOUTH EVERY DAY SOLD: 12/12/2020 [facility] 200 mcg 12/09/2020 12:00:00 AM EDT tablet 30 TAKE ONE TABLET BY MOUTH EVERY DAY ON AN EMPTY STOMACH TAKE ONE TABLET BY MOUTH EVERY DAY ON AN EMPTY STOMACH SOLD: 12/12/2020 [facility] 15 mg 11/16/2020 12:00:00 AM EDT tablet 30 TAKE ONE TABLET BY MOUTH EVERY DAY TAKE ONE TABLET BY MOUTH EVERY DAY SOLD: 11/17/2020 [facility] Cyclobenzaprine hydrochloride 10 MG Oral Tablet CYCLOBENZAPR INE HCL 11/16/2020 12:00:00 AM EDT tablet 90 TAKE ONE TABLET BY MOUTH THREE TIMES A DAY NEEDED FOR MUSCLE SPASMS TAKE ONE TABLET BY MOUTH THREE TIMES A D AY NEEDED FOR MUSCLE SPASMS SOLD: 11/17/2020 [facility] 600 mg 11/16/2020 12:00:00 AM EDT tablet 180 TAKE TWO TABLETS BY MOUTH THREE TIMES A DAY TAKE TWO TABLETS BY MOUTH THREE TIMES A DAY SOLD: 11/17/2020 [facility] 600 mg 11/16/2020 12:00:00 AM EDT tablet 180 TAKE TWO TABLETS BY MOUTH THREE TIMES A DAY TAKE TWO TABLETS BY MOUTH THREE TIMES A DAY SOLD: 03/19/2021 [facility] 25 mg 10/27/2020 12:00:00 AM EDT tablet 120 TAKE 1 TABLET 1 TO 4 TIMES A DAY NEEDED FOR ANXIETY TAKE 1 TABLET 1 TO 4 TIMES A DAY NEEDED FOR ANXIETY SOLD: 10/27/2020 [facility] Hydroxyzine Hydrochloride 25 MG Oral Tablet Hydroxyzine HCL 10/27/2020 12:00:00 AM EDT ORAL active [facility] ([facility]) 40 mg 10/18/2020 12:00:00 AM EDT capsule,delayed release (DR/EC) 30 TAKE ONE CAPSULE BY MOUTH EVERY DAY TAKE ONE CAPSULE BY MOUTH EVERY DAY SOLD: 10/27/2020 [facility] 60 mg 10/18/2020 12:00:00 AM EDT capsule,delayed release (DR/EC) 30 TAKE ONE CAPSULE BY MOUTH EVERY DAY TAKE ONE CAPSULE BY MOUTH EVERY DAY SOLD: 10/27/2020 [facility] 5 mg 10/15/2020 12:00:00 AM EDT tablet 30 TAKE ONE TABLET BY MOUTH EVERY DAY WITH FOOD TAKE ONE TABLET BY MOUTH EVERY DAY WITH FOOD SOLD: 10/15/2020 [facility] Metformin hydrochloride 1000 MG Oral Tablet 1,000 mg METFORM IN HCL 10/14/2020 12:00:00 AM EDT tablet 60 TAKE ONE TABLET BY MOUTH TWICE A DAY TAKE ONE TABLET BY MOUTH TWICE A DAY SOLD: 10/15/2020 [facility] montelukast 10 MG Oral Tablet MONTELUKAST SODIUM 10/14/2020 12:0 0:00 AM EDT tablet 30 TAKE ONE TABLET BY MOUTH EVERY D AY TAKE ONE TABLET BY MOUTH EVERY DAY SOLD: 10/15/2020 [facility] 10 mg 10/14/2020 12:00:00 AM EDT tablet 90 TAKE 1 TABLET BY MOUTH EVERY 8 HOURS NEEDED FOR ANXIETY TAKE 1 TABLET BY MOUTH EVERY 8 HOURS NEEDED FOR ANXIETY SOLD: 10/15/2020 [facility] Hydroxyzine Hydrochloride 10 MG Oral Tablet hydrOXYzin e (ATARAX) tablet 10 mg hydrOXYzine (ATARAX) tablet 10 mg 10/12/2020 08:45:00 PM EDT 10 mg Oral completed 10 mg, Oral, Once, Sat10/12/20 a t 2044, For 1 dose [facility] Medication administered onsite iohexol (OMNIPAQUE) 300 MG/ML contrast injection 100 mL 1776 10/12/2020 08:30:00 PM EDT 100 mL Given by IV completed 100 mL, Given by IV, 1 TIME IMAGING, 10/12/20 at 2030, For 1 dose [facility] Medication administered onsite 1 mg/2 mL 08/17/2020 12:00:00 AM EST suspension for nebuliza tion 120 INHALE ONE VIAL VIA NEBULIZER TWICE A DAY INHALE ONE VIAL VIA NEBULIZER TWICE A DAY SOLD: 08/18/2020 [facility] 10 mg 08/02/2020 12:00:00 AM EST tablet 90 TAKE 1 TABLET BY MOUTH EVERY 8 HOURS NEEDED FOR ANXIETY TAKE 1 TABLET BY MOUTH EVERY 8 HOURS NEEDED FOR ANXIETY SOLD: 08/02/2020 [facility] 200 mcg 08/02/2020 12:00:00 AM EST tablet 30 TAKE ONE TABLET BY MOUTH EVERY MORNING ON AN EMPTY STOMACH TAKE ONE TABLET BY MOUTH EVERY MORNING O N AN EMPTY STOMACH SOLD: 08/02/2020 [facility] 40 mg 08/02/2020 12:00:00 AM EST capsule,delayed release (DR/EC) 90 TAKE ONE CAPSULE BY MOUTH EVERY DAY TAKE ONE CAPSULE BY MOUTH EVERY DAY SOLD: 08/02/2020 [facility] 60 mg 08/02/2020 12:00:00 AM EST capsule,delayed release (DR/EC) 90 TAKE ONE CAPSULE BY MOUTH EVERY DAY TAKE ONE CAPSULE BY MOUTH EVERY DAY SOLD: 08/02/2020 [facility] Nystatin 100 UNT/MG Topical Powder 100,000 unit/gram NYSTATI N 07/07/2020 12:00:00 AM EST powder 15 APPLY TO RASH IN SKIN FOLDS ON ABDOMEN 2-3 TIMES DAILY NEEDED APPLY TO RASH IN SKIN FOLDS ON ABDOMEN 2 -3 TIMES DAILY NEEDED SOLD: 07/07/2020 [facility] 1,000 mg 07/06/2020 12:00:00 AM EST tablet 60 TAKE ONE TABLET BY MOUTH TWICE A DAY TAKE ONE TABLET BY MOUTH TWICE A DAY SOLD: 04/22/2021 [facility] Cyclobenzaprine hydrochloride 10 MG Oral Tablet CYCLOBENZAPR INE HCL 07/06/2020 12:00:00 AM EST tablet 90 TAKE ONE TABLET BY MOUTH THREE TIMES A DAY NEEDED FOR MUSCLE SPASMS TAKE ONE TABLET BY MOUTH THREE TIMES A D AY NEEDED FOR MUSCLE SPASMS SOLD: 07/07/2020 [facility] Metformin hydrochloride 1000 MG Oral Tablet 1,000 mg METFORM IN HCL 07/06/2020 12:00:00 AM EST tablet 60 TAKE ONE TABLET BY MOUTH TWICE A DAY TAKE ONE TABLET BY MOUTH TWICE A DAY SOLD: 07/07/2020 [facility] 90 mcg/actuation 07/06/2020 12:00:00 AM EST HFA aerosol inha ler 18 INHALE TWO PUFFS BY MOUTH EVERY 4 TO 6 HOURS NEEDED INHALE TWO PUFFS BY MOUTH EVERY 4 TO 6 HOURS NEEDED SOLD: 07/07/2020 [facility] 20 mg 06/26/2020 12:00:00 AM EST tablet 11 TAKE 2 TABLETS BY MOUTH ONCE DAILY FOR 4 DAYS, THEN 1 TABLET DAILY FOR 3 DAYS TAKE 2 TABLETS BY MOUTH ONCE DAILY FOR 4 DAYS, THEN 1 TABLET DAILY FOR 3 DAYS SOLD: 06/26/2020 [facility] 12 HR Guaifenesin 600 MG Extended Release Oral Tablet GUAIFE NESIN 06/25/2020 12:00:00 AM EST tablet extended release 12hr 20 TOREY E ONE TABLET BY MOUTH TWICE A DAY FOR 10 DAYS TAKE ONE TABLET BY MOUTH TWICE A DAY FOR 10 DAYS SOLD: 06/26/2020 [facility] 250 mg 06/22/2020 12:00:00 AM EST tablet 6 TAKE TWO TABLETS BY MOUTH AT ONCE ON THE FIRST DAY THEN TAKE ONE DAILY THEREAFTER TAKE TWO TABLETS BY MOUTH AT ONCE ON THE FIRST DAY THEN TAKE ONE DAILY THEREAFTER SOLD: 06/22/2020 [facility] 20 mg 06/22/2020 12:00:00 AM EST tablet 10 TAKE TWO TABLETS BY MOUTH EVERY DAY TAKE TWO TABLETS BY MOUTH EVERY DAY SOLD: 06/22/2020 [facility] montelukast 10 MG Oral Tablet MONTELUKAST SODIUM 06/20/2020 12:0 0:00 AM EST tablet 30 TAKE ONE TABLET BY MOUTH EVERY D AY TAKE ONE TABLET BY MOUTH EVERY DAY SOLD: 06/20/2020 [facility] montelukast 10 MG Oral Tablet Montelukast Sodium 06/20/2020 12:00:00 AM EST ORAL active MEDENT ([facility], ) 0.1 % 06/05/2020 12:00:00 AM EST cream 15 APPLY TO STOMA SKIN TWO TIMES A DAY APPLY TO STOMA SKIN TWO TIMES A DAY SOLD: 06/06/2020 [facility] montelukast 10 MG Oral Tablet MONTELUKAST SODIUM 01/28/2020 12:0 0:00 AM EDT tablet 30 TAKE ONE TABLET BY MOUTH EVERY D AY TAKE ONE TABLET BY MOUTH EVERY DAY SOLD: 05/14/2020 [facility] 40 mg 01/05/2020 12:00:00 AM EDT capsule,delayed release (DR/EC) 30 TAKE ONE CAPSULE BY MOUTH EVERY DAY TAKE ONE CAPSULE BY MOUTH EVERY DAY SOLD: 06/20/2020 [facility] 40 mg 01/05/2020 12:00:00 AM EDT capsule,delayed release (DR/EC) 30 TAKE ONE CAPSULE BY MOUTH EVERY DAY TAKE ONE CAPSULE BY MOUTH EVERY DAY SOLD: 05/09/2020 [facility] 15 mg 01/01/2020 12:00:00 AM [...] MOUTH EVERY DAY SOLD: 06/20/2020 [facility] 5 mg 12/29/2019 [...] DAY WITH FOOD SOLD: 05/14/2020 [facility] 600 mg 12/25/2019 12:00:00 AM EDT tablet 120 TAKE TWO TABLETS BY MOUTH THREE TIMES A DAY TAKE TWO TABLETS BY MOUTH THREE TIMES A DAY SOLD: 06/20/2020 [facility] 600 mg 12/25/2019 12:00:00 AM EDT tablet 120 TAKE TWO TABLETS BY MOUTH THREE TIMES A DAY TAKE TWO TABLETS BY MOUTH THREE TIMES A DAY SOLD: 05/14/2020 [facility] Insurance Providers Payer name Policy type / Coverage type Policy ID Covered libertarian ID Covered libertarian's relationship to mayers Policy Mayers Plan Information Medicaid S [id number] S [id number] Managed Care - Community Plan [facility] P [id number] S [id number] Medicaid S [id number] Managed Care - Community Plan [facility] P [id number] S [id number] [facility] [id number] SP [id number] Medicaid S [id number] S [id number] UH I [id number] Self [id number] [place] 4 [place] [id number] S [id number] [facility] MEDICAID [id number] S [id number] UNHC COMMUNITY PLAN MCDHMO [id number] SP [id number] Medicaid S [id number] S [id number] Managed Care - [facility] Community Plan P [id number] S [id number] Managed Care - Community Plan [facility] P [id number] S [id number] Medicaid P [id number] S [id number] Managed Care - [facility] Community Plan P [id number] S [id number] Medicaid S [id number] S [id number] [facility] I [id number] Self [id number] [facility] Health Maintenance Organization (HMO) [id number] Self [id number] [facility] Health Maintenance Organization (HMO) [id number] Self [id number] Self Pay P UNAVAILABLE S UNAVAILA BLE Managed Care - Community Plan [facility] S [id number] S [id number] [facility](MCAID) O [id number] S [id number] ANS-Medicaid [id number] ANSI-Medicaid [id number] [place] 4 [place] [id number] S [id number] UNHC FBH [id number] S [id number] [facility] [place]/MCR Medigap Part B [id number] Self [id number] [facility]/[facility] Health Maintenance Organization (HMO) [id number] Self [id number] [facility] Lis[place]/MCR Medigap Part B [id number] Self [id number] [employer] COMMUNITY PLAN MCDHMO [id number] SP [id number] NCO EPA [id number] SP [id number] MED[place] IN [place] [id number] SP [id number] MEDICAID [id number] SP [id number] A [facility]-Community Plan-[facility] Commercial [id number] Self [id number] [employer] COMMUNITY PLAN MCDHMO [id number] SP [id number] UNHC COMMUNITY PLAN MCDHMO [id number] SP [id number] [facility](MCAID) O [id number] S [id number] [facility] [place]/MCR Medigap Part B [id number] Self [facility]te/MCR Health Maintenance Organization (HMO) [id number] Self [facility] Community Plan Commercial [id number] Self [facility](MCAID) O [id number] S [id number] MEDICAID [id number] SP [id number] [employer] COMMUNITY PLAN MCDHMO [id number] SP [id number] MEDICAID [id number] SP [id number] MEDICAID [id number] SP [id number] [facility] [id number] [facility] [id number] HU [id number] [facility] [id number] SP [id number] [facility] [facility] [id number] SP [id number] ACTIVE DUTY [id number] HU [id number] [facility] [id number] PCAP [facility] [id number] [id number] [facility] UNHC COMMUNITY PLAN MCDO [id number] SP [id number] MEDICAID -O/P [id number] [facility] MEDICAID [id number] S [id number] [facility] MEDICAID [id number] S [id number] MEDICAID [id number] S [id number] MEDICAID [id number] S [id number] [facility] [id number] S [id number] [facility] [id number] Unknown [id number] [facility] COMMUNTY PLAN [id number] 18 [id number] UNHC COMMUNITY PLAN XIX [id number] 18 [id number] UNHC COMMUNITY PLAN MCDO [id number] SP [id number] [facility](MCAID) O [id number] S [id number] [facility]NY [id number] SP [id number] MVP MCDO [id number] SP [id number] MVP [facility] [id number] S [id number] MEDICAID [id number] S [id number] MEDICAID [id number] SP [id number] SELF PAY ONLY [id number] SP [id number] Problems, Conditions, and Diagnoses Code Display Name Description Problem Type Effective Dates Data Source(s) I73.9 Peripheral vascular disease, unspecified PERIPHERAL VASCULAR DISEASE, UNSPECIFIED Diagnosis 06/23/2021 02:00:00 PM EST [facility] [id number] Other assisted (current) drug therapy 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 manager intermediate (current) drug therapy Diagnosis 01/17/2021 09:36:00 AM EDT [facility] K219 Gastro-esophageal reflux disease without esophagitis Gastro-esophageal reflux disease without esophagitis Diagnosis 01/17/2021 09:36:00 AM ED T [facility] E7800 Pure hypercholesterolemia, unspecified P ure hypercholesterolemia, unspecified Diagnosis 01/17/2021 09:36:00 AM EDT [facility] E1165 Type 2 diabetes mellitus with hyperglyce lorin Type 2 diabetes mellitus with hyperglycemia Diagnosis 01/17/2021 09:36:00 AM EDT [facility] E039 Hypothyroidism, unspecified Hypothyroidism, unspecifie d Diagnosis 01/17/2021 09:36:00 AM EDT [facility] F331 Major depressive disorder, recurrent, mo derate Major depressive disorder, recurrent, moderate Diagnosis 01/17/2021 09:36:00 AM EDT [facility] F419 Anxiety disorder, unspecified Anxiety disorder, unspec ified Diagnosis 01/17/2021 09:36:00 AM EDT [facility] 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 Diagnosis 01/17/2021 09:36:00 AM EDT [facility] J449 Chronic obstructive pulmonary disease, u nspecified Chronic obstructive pulmonary disease, unspecified Diagnosis 01/17/2021 09:36:00 AM EDT [facility] R2242 Localized swelling, mass and lump, left lower limb Localized swelling, mass and lump, left lower limb Diagnosis 01/17/2021 09:36:00 AM EDT [facility] I219 Acute myocardial infarction, unspecified Acute myocardial infarction, unspecified Diagnosis 01/17/2021 09:36:00 AM EDT [facility] Z51.89 Encounter for other specified aftercare Encounter for other specified aftercare Diagnosis 10/12/2020 05:18:00 PM EDT [facility] G89.18 Other acute postprocedural pain Other acute post procedural pain Diagnosis 10/12/2020 05:18:00 PM EDT [facility] stoma bleeding heavily, not healing stoma bleedi ng heavily, not healing Diagnosis 10/12/2020 05:18:00 PM EDT [facility] stoma bleeding heavily stoma bleeding heavily Diagnosi s 10/12/2020 04:51:00 PM EDT [facility] E66.9 [id number] Obesity (BMI 30-39.9) Problem 06/27/2021 12: 00:00 AM EST eCW1 ([facility]) Z68.38 [id number] BMI 38.0-38.9,adult Problem 06/27/2021 12:00 :00 AM EST eCW1 ([facility]) J44.9 [id number] Chronic obstructive pulmonary di sease, unspecified COPD type Problem 06/14/2021 12:00:00 AM EST eCW1 ([facility]) R13.10 [id number] Difficulty swallowing solids Problem 06/14/2021 12:00:00 AM EST eCW1 ([facility]) E78.2 Mixed hyperlipidemia Mixed hyperlipidemia Problem 06/14/2021 12:00:00 AM EST eCW1 ([facility]) F17.200 [id number] Smoker Problem 06/14/2021 12:00:00 AM ES T eCW1 ([facility]) Z92.3 [id number] History of radiation therapy Problem 021 12:00:00 AM EST eCW1 ([facility]) I73.9 [id number] Peripheral arterial disease Problem 06/14/20 21 12:00:00 AM EST eCW1 ([facility]) Z85.21 [id number] History of primary laryngeal cancer Prob andrew 06/14/2021 12:00:00 AM EST eCW1 ([facility]) 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 Problem 06/14/2021 12:00:00 AM EST eCW1 ([facility]) Z90.02 [id number] History of laryngectomy Problem 06/14/2021 1 2:00:00 AM EST eCW1 ([facility]) Z82.5 Family history of asthma Family history of asthma Prob andrew 05/25/2020 12:00:00 AM EST MEDENT ([facility]) Z82.61 FH: Arthritis FH: Arthritis Problem 05/25/2020 12:00:00 AM EST [facility] ([facility]) K62.5 Hemorrhage of rectum and anus Hemorrhage of rectum and anus Problem 05/25/2020 12:00:00 AM EST [facility] ([facility]) I63.9 Cerebral artery occlusion Cerebral artery occlusion Pr oblem 05/25/2020 12:00:00 AM EST [facility] ([facility]) E78.00 Pure hypercholesterolemia Pure hypercholesterolemia Pr oblem 05/25/2020 12:00:00 AM EST [facility] ([facility]) E11.65 Type II diabetes mellitus uncontrolled T ype II diabetes mellitus uncontrolled Problem 05/25/2020 12:00:00 AM EST MED[facility] ([facility]) F33.1 Moderate recurrent major depression Moderate rec urrent major depression Problem 05/25/2020 12:00:00 AM EST MED[facility] ([facility]) Z80.2 Family history of malignant neoplasm of thoracic cavity structure Family history of malignant neoplasm of thoracic cavity structure Problem 05/25/2020 12:00:00 AM EST MED[facility] ([facility]) Z83.49 Family history of endocrine disorders Fa kenneth history of endocrine disorders Problem 05/25/2020 12:00:00 AM EST [facility] ([facility]) Z83.42 Family history of familial hypercholeste rolemia Family history of familial hypercholesterolemia Problem 05/25/2020 12:00:00 AM EST MED ENT ([facility]) Z82.49 Family history of ischemic h eart disease and other diseases of the circulatory system Family history of ischemic heart disease and other diseases of the circulatory system Problem 05/25/2020 12:00:00 AM EST [facility] ([facility]) Z83.3 Family history of diabetes mellitus Family histo ry of diabetes mellitus Problem 05/25/2020 12:00:00 AM EST [facility] ([facility]) Z81.8 Mental disorder Mental disorder Problem 05/25/2020 12:0 0:00 AM EST MED[facility] ([facility]) Surgeries/Procedures Procedure Description Date Indications Data Source(s) OFFICE OUTPATIENT VISIT 15 MINUTES 04/17/2021 12:00:00 AM EDT [facility] ([facility]) OFFICE OUTPATIENT VISIT 25 MINUTES 02/02/2021 12:00:00 AM EDT [facility] ([facility]) OFFICE OUTPATIENT VISIT 15 MINUTES 01/17/2021 12:00:00 AM EDT [facility] ([facility]) OFFICE OUTPATIENT VISIT 25 MINUTES 10/27/2020 12:00:00 AM EDT [facility] ([facility]) CT SOFT TISSUE NECK W/CONTRAST MATERIAL <td>CT SOFT TI SSUE NECK WITH CONTRAST 58242</td><td>STAT</td><td>10/12/2020 8:28 PM EDT</td><td></td><td> </td> 10/12/2020 08:28:11 PM T [facility] XR CHEST FRONTAL AND LATERAL [id number] <td>XR CHEST FRONTA L AND LATERAL 10864</td><td>STAT</td><td>10/12/2020 7:58 PM EDT</td><td></td><td> </td> 10/12/2020 07:58:36 PM [facility] BLOOD COUNT COMPLETE AUTO&AUTO DIFRNTL WBC COUNT <td>C BC AND DIFFERENTIAL</td><td>Routine</td><td>10/12/2020 7:37 PM EDT</td><td></td><td> </td> 10/12/2020 07:37:00 PM [facility] PROTHROMBIN TIME <td>PROTIME INR</td><td>STAT </td><td>10/12/2020 6:48 PM EDT</td><td></td><td> </td> 10/12/2020 06:48:00 PM [facility] BLOOD COUNT COMPLETE AUTO&AUTO DIFRNTL WBC COUNT <td>C BC AND DIFFERENTIAL</td><td>Routine</td><td>10/12/2020 6:48 PM EDT</td><td></td><td> </td> 10/12/2020 06:48:00 PM [facility] COMPREHENSIVE METABOLIC PANEL <td>COMPREHENSIVE METABO LIC PANEL</td><td>STAT</td><td>10/12/2020 6:48 PM EDT</td><td></td><td> </td> 10/12/2020 06:48:00 PM [facility] Brief Emotional/Behav Assessment W/ Scoring Doc Per Standard Inst 05/16/2020 12:00:00 AM EDT [facility]) Admin Patient Focused Health Risk Assessment Instrument 05/16/2020 12:00:00 AM EDT MEDGERMAINE ([facility]) Results ID Date Data Source [id number] 06/10/2021 12:56:00 PM [facility] Collected By: Nurse Initials: af Time Collected: 1243 Collected By: Nurse Initials: af Time Collected: 124 Name Value Range Interpretation Code Description Data Elizabeth rce(s) Supporting Document(s) Color,Urine Colorl-Dk Y Normal (applies to non-numeric res ults) [facility] Clarity,Urine Clear Normal (applies to non-numeric re sults) [facility] Specific [place],Urine 1.005-1.030 Normal (applies to non- numeric results) [facility] pH,Urine 5.0-8.0 Normal (applies to non-numeric resul ts) [facility] Protein,Urine Negative [facility] Glucose,Urine [facility] Ketones,Urine Negative Normal (applies to non-numeric re sults) [facility] Blood,Urine Negative Normal (applies to non-numeric resu lts) [facility] Bilirubin,Urine Negative Normal (applies to non-numeric results) [facility] Urobilinogen,Urine 0.2-1.0 Normal (applies to non-numer ic results) [facility] Leukocyte Esterase,Urine Negative Normal (applies to non -numeric results) [facility] Nitrite,Urine Negative Normal (applies to non-numeric re sults) [facility] ID Date Data Source [id number] 06/10/2021 12:56:00 PM [facility] Collected By: Nurse Initials: af Time Collected: 1242 Collected By: Nurse Initials: af Time Collected: 1242 Name Value Range Interpretation Code Description Data Elizabeth rce(s) Supporting Document(s) RBC,Urine None Seen [facility] WBC,Urine None Seen [facility] Casts,Urine None Seen Normal (applies to non-numeric resu lts) [facility] Squamous Cells,Urine None Seen [facility] Bacteria,Urine None Seen [facility] ID Date Data Source [id number] 06/10/2021 12:00:00 PM EST [facility] Name Value Range Interpretation Code Description Data Elizabeth rce(s) Supporting Document(s) Respiratory specimen severe acute respir atory syndrome coronavirus 2 (SARS-CoV-2) RNA Negative (qualifier value) LOCATED WITHIN [facility] reported by . ID Date Data Source [id number] 06/10/2021 12:19:00 PM EST [facility] Name Value Range Interpretation Code Description Data Elizabeth rce(s) Supporting Document(s) SARS-CoV-2 RNA Negative Normal (applies to non-numeric r esults) [facility] Negative results should be treated as pr esumptive and, if inconsistent with clinical signs and symptoms or necessary for patient management, should be tested with different authorized or cleared molecular tests. Negative results do not preclude SARS-CoV-2 infection and should not be used as the sole basis for patient management decisions. Negative results should be considered in the context of a patient???s recent exposures, history and the presence of clinical signs and symptoms consistent with COVID-19. This test has not been FDA cleared or approved; this test has been authorized by FDA under an Emergency Use Authorization for use by laboratories certified under the Clinical Laboratory Improvement Amendments of 1988 (CLIA), 42 U.S.C. ???263a, to perform moderate complexity/high complexity tests and at the Point of Care (POC), i.e., in patient care settings operating under a CLIA Certificate of Waiver, Certificate of Compliance, or Certificate of Accreditation. Factsheets for healthcare providers: https://www.fda.gov/media/639227/download Factsheets for patients: https://www.fda.gov/media/664362/download The ID NOW Instrument is a rapid molecular in vitro diagnostic test utilizing an isothermal nucleic acid amplification technology intended for the qualitative detection of nucleic acid from the SARS-CoV-2 viral RNA. THIS IS A STATE REPORTABLE COMMUNICABLE DISEASE. Manual entry verified by Crystal Acevedo 06/10/21 1218 ID Date Data Source [id number] 06/12/2021 07:45:00 AM [facility] Imaging Services Department Imaging Report [address] [place], [place] [address] %(RAD)RES..mtdd.print.filter("line") Name: ESSENCE AGUERO : 1980 Age/Sex: 40F Ordering Provider: Jose Kinney MD Med Rec #: [id number] Reg Status: [facility] ER Room #: Date of Service: 06/10/21 Report Number: [id number] cc:PCP None Send Report To: [id number] CT/CT Chest No Contrast Reason for exam: dyspnea FINDINGS: Some biapical pleural parenchymal scarring noted. The lung mercedes areotherwise clear. Heart and mediastinum within normal limits. Upper abdomen within normal limits. IMPRESSION: No signs of any acute disease. While performing the above CT exam, the following dose reduction techniques wereused: *Automated exposure control *Adjustment of the mA and/or kV according to patient size *Use of iterative reconstruction technique CT Dose in mGy: Contrast Agent: Amount in ml: Method of Administration: REPORT SIGNATURE ON FILE Reported By: Jose Barroso MD <Electronically signed by Giana Barroso MD> 06/12/21 1152 Dictation Date/Time: 06/10/21 1252 Transcribed Date/Time: 06/12/21 07 45 Film Cutter: [email or web address] Name Value Range Interpretation Code Description Data Elizabeth rce(s) Supporting Document(s) ID Date Data Source [id number] 06/12/2021 07:38:00 AM [facility] Imaging Services Department Imaging Report [address] [place], [place] [address] %(RAD)RES..mtdd.print.filter("line") Name: ESSENCE AGUERO : 1980 Age/Sex: 40F Ordering Provider: Jose Kinney MD Med Rec #: [id number] Reg Status: [facility] Room #: Date of Service: 06/10/21 Report Number: [id number] cc:PCP None Send Report To: [id number] CT/CT Neck Soft Tissue No Contras Reason for exam: dyspnea FINDINGS: Parapharyngeal and parotid spaces appear normal. Tracheostomy is present. Some narrowing of the upper cervical esophagus noted which may just berelated to technique. No signs of any other significant findings. IMPRESSION: Trach present with the trachea communicating with the anterior neck. Some slight narrowing in the upper cervical esophagus with no other abnormalities. While performing the above CT exam, the following dose reduction techniques wereused: *Automated exposure control *Adjustment of the mA and/or kV according to patient size *Use of iterative reconstruction technique CT Dose in mGy: Contrast Agent: Amount in ml: Method of Administration: REPORT SIGNATURE ON FILE Reported By: Jose Barroso MD <Electronically signed by Giana Barroso MD> 06/12/21 1152 Dictation Date/Time: 06/11/21 1252 Transcribed Date/Time: 06/12/21 0738 Film Cutter: [email or web address] Name Value Range Interpretation Code Description Data Elizabeth rce(s) Supporting Document(s) ID Date Data Source [id number] 06/10/2021 12:21:00 PM EST [facility] Name Value Range Interpretation Code Description Data Elizabeth rce(s) Supporting Document(s) B-Type Natriuretic Peptide BNP <125 Normal (applies to non-numeric results) [facility] Results of this test should always be us ed in conjunction with the patients medical history, clinical presentation, and other findings. ID Date Data Source [id number] 06/10/2021 12:16:00 PM EST [facility] Name Value Range Interpretation Code Description Data Elizabeth rce(s) Supporting Document(s) Sodium 129 mmol/L 136-[address] [facility] Potassium 3.5-5.1 Normal (applies to non-numeric resul ts) [facility] Chloride 88 mmol/L 98-107 Below low normal [facility] spital Carbon Dioxide CO2 21-32 Normal (applies to non-numer ic results) [facility] Anion Gap 5.0-16.0 Normal (applies to non-numeric resul ts) [facility] BUN 6 mg/dL 7-18 Below low normal [facility] spital Creatinine,Serum 0.7-1.2 Normal (applies to non-numeric results) [facility] GFR >60 Normal (applies to non-numeric results) [facility] Glucose Level 350 mg/dL 60-99 Above high normal [facility] Reference range is only applicable when patient is fasting Note the following drug interference: Sulfasalazine Sulfapyridine Can see falsely depressed Can see falsely elevated result with up to 17% results with up to 11% decrease in measurement increase in measurement Recommend patients be collected for this test prior to administration of either drug. Calcium 8.5-10.1 Normal (applies to non-numeric resul ts) [facility] Bilirubin,Total 0.1-1.9 Normal (applies to non-numeric results) [facility] SGOT(AST) 21 U/L 15-37 Normal (applies to non-numeric resul ts) [facility] Note the following drug interference: Sulfasalazine Sulfapyridine Can see falsely depressed Can see falsely elevated result with up to 10% results with up to 10% decrease in measurement increase in measurement Recommend patients be collected for this test prior to administration of either drug. SGPT(ALT) 23 U/L 12-78 Normal (applies to non-numeric resul ts) [facility] Note the following drug interference: Sulfasalazine Sulfapyridine Can see falsely depressed Can see falsely elevated result with up to 29% results with up to 10% decrease in measurement increase in measurement Recommend patients be collected for this test prior to administration of either drug. Alkaline Phosphatase 146 U/L 38-126 Above high normal [facility] can increase Alkaline Phosp le vels up to 2 times the normal adult value. Normal values for children and adolescents are 2 to 3 times the normal adult value. Total Protein 6.0-8.2 Above high normal [facility] Albumin Level 3.4-5.0 Normal (applies to non-numeric re sults) [facility] ID Date Data Source [id number] 06/10/2021 12:16:00 PM [facility] Name Value Range Interpretation Code Description Data Elizabeth rce(s) Supporting Document(s) Troponin I 0.000-0.056 Normal (applies to non-numeric resu lts) [facility] ID Date Data Source [id number] 06/10/2021 12:15:00 PM [facility] Name Value Range Interpretation Code Description Data Elizabeth rce(s) Supporting Document(s) D-Dimer,Quant 0.19-0.50 Normal (applies to non-numeric [facility]) [facility] The negative predictive value for DVT or PE is at 98% when the result is below the cut off value of 0.50 mg/L FEU. Increases in D-Dimer concentration observed with thromboembolic events can be variable due to localization, size, and age of thrombus. Therefore, a thromboembolic event cannot be diagnosed with certainty on the basis of the reference range. D-Dimers may also be elevated for a variety of disorders including: advanced age, , coronary disease, cancer, liver disease, infection, inflammation, hematoma, DIC, trauma, post surgery, diabetes, thrombolytic therapy, stress, and general hospitialization. D-Dimer levels may be decreased in patients on anticoagulant therapy. ID Date Data Source [id number] 06/10/2021 11:56:00 AM [facility] Name Value Range Interpretation Code Description Data Elizabeth rce(s) Supporting Document(s) White Blood Count 3.5-10.5 Above high normal [facility] Red Blood Count 3.90-5.00 Above high normal [facility] Hemoglobin 12.0-15.5 Normal (applies to non-numeric resul ts) [facility] Hematocrit 34.9-44.5 Above high normal [facility] Mean Corpuscular Volume 81.2-95.1 Normal (applies to non- numeric results) [facility] Mean Corpuscular Hgb 25.6-32.2 Normal (applies to non-num sukumar results) [facility] Mean Corpuscular Hgb Conc 32.0-36.0 Normal (applies to no n-numeric results) [facility] Red Cell Distribution Width 11.9-15.5 Normal (appli es to non-numeric results) [facility] Platelet Count 389 x10 3/uL 150-450 Normal (applies to non-numeric results) [facility] Mean Platelet Volume 9.4-12.4 Normal (applies to non-num sukumar results) [facility] Neutrophils% (Auto) 31.0-71.0 Normal (applies to non-nume brianne results) [facility] Lymphocytes% (Auto) 20.0-55.0 Normal (applies to non-nume brianne results) [facility] Monocytes% (Auto) 4.0-12.0 Normal (applies to non-numeri c results) [facility] Eosinophils% (Auto) 1.0-8.0 Normal (applies to non-nume brianne results) [facility] Basophils% (Auto) 0.0-2.0 Normal (applies to non-numeri c results) [facility] Immature Granulocytes% (Auto) 0.0-2.0 Normal (pavithra lies to non-numeric results) [facility] Neutrophils# (Auto) 1.50-6.20 Above high normal [facility] Lymphocytes# (Auto) 1.20-4.00 Normal (applies to non-nume brianne results) [facility] Monocytes# (Auto) 0.00-0.90 Above high normal [facility] Eosinophils# (Auto) 0.00-0.50 Normal (applies to non-nume brianne results) [facility] Basophils# (Auto) 0.00-0.20 Normal (applies to non-numeri c results) [facility] Immature Granulocytes# (Auto) 0.00-7.00 No rmal (applies to non-numeric results) [facility] ID Date Data Source [id number] 02/02/2021 10:27:00 AM EDT [facility] ([facility]) Name Value Range Interpretation Code Description Data Elizabeth rce(s) Supporting Document(s) Calcidiol [Mass/volume] in Serum or Plasma 11 ng/mL [facility] ([facility]) Is patient fasting? Y Magnesium [Mass/volume] in Serum or Plasma 1.7 mg/dL 1.7-2.2 [facility] ([facility]) Is patient fasting? Y Thyroxine (T4) free [Mass/volume] in Serum or Plasma 0.60 ng/dL 0.93-1.70 Below low normal [facility] ([facility]) Is patient fasting? Y Thyrotropin [Units/volume] in Serum or Plasma 6.52 uIU/mL 0. 47-5.01 Above high normal [facility] ([facility]) Is patient fasting? Y ID Date Data Source [id number] 02/02/2021 10:27:00 AM EDT [facility] ([facility]) Name Value Range Interpretation Code Description Data Elizabeth rce(s) Supporting Document(s) Cholesterol 196 mg/dL 131-200 [facility] ([facility]) Is patient fasting? Y Cve Panel Laboratory test result [facility] ([facility]) Is patient fasting? Y Triglycerides 568 mg/dL 35-160 Above high normal [facility] ([facility]) Is patient fasting? Y HDL 28 mg/dL 29-86 Below low normal [facility] ([facility]) Is patient fasting? Y LDL 92 mg/dL 65-175 [facility] ([facility]) Is patient fasting? Y LDL/HDL 3.29 1.47-3.22 Above high normal [facility] ([facility]) Is patient fasting? Y Risk Factor 7.0 3.2-4.4 Above high normal [facility] ([facility]) Is patient fasting? Y ID Date Data Source [id number] 02/02/2021 10:27:00 AM EDT [facility] ([facility]) Name Value Range Interpretation Code Description Data Elizabeth rce(s) Supporting Document(s) Hemoglobin A1c/Hemoglobin.total in Blood 9.1 % 4.4-6.1 Above high normal [facility] ([facility]) Is patient fasting? Y ID Date Data Source [id number] 02/02/2021 10:27:00 AM EDT [facility] ([facility]) Name Value Range Interpretation Code Description Data Elizabeth rce(s) Supporting Document(s) Comprehensive Metabo Laboratory test result [facility] ([facility]) Is patient fasting? Y Chloride 93 meq/L 98-107 Below low normal [facility] ( [facility]) Is patient fasting? Y Potassium 4.7 meq/L 3.6-5.0 [facility] ([facility]) Is patient fasting? Y Sodium 133 meq/L 134-153 Below low normal [facility] ( [facility]) Is patient fasting? Y BUN 5 mg/dL 7-21 Below low normal [facility] ([facility]) Is patient fasting? Y Co2 29 meq/L 22-30 [facility] ([facility]) Is patient fasting? Y Glucose 200 mg/dL 70-99 Above high normal [facility] ([facility]) Is patient fasting? Y Creatinine 0.6 mg/dL 0.7-1.5 Below low normal [facility] ( [facility]) Is patient fasting? Y BUN/Creat 8 8-27 [facility] ([facility]) Is patient fasting? Y Total Protein 7.6 g/dL 6.3-8.2 [facility] ([facility]) Is patient fasting? Y Albumin 4.6 g/dL 3.9-5.0 [facility] ([facility]) Is patient fasting? Y Globulin 3.0 GM/DL 2.4-3.2 [facility] ([facility]) Is patient fasting? Y A/G Ratio 1.5 0.8-2.0 [facility] ([facility]) Is patient fasting? Y Total Bili Laboratory test result 0.2-1.3 [facility] ([facility]) Is patient fasting? Y Alkaline Phos 116 U/L 38-126 [facility] ([facility]) Is patient fasting? Y Calcium 9.5 mg/dL 8.4-10.2 [facility] ([facility]) Is patient fasting? Y Sgot/Ast 24 U/L 5-40 [facility] ([facility]) Is patient fasting? Y SGPT/Alt 17 U/L 7-56 [facility] ([facility]) Is patient fasting? Y Anion Gap 11.0 mmol/L 8.0-16.0 [facility] ([facility]) Is patient fasting? Y Age 40 yrs [facility] ([facility]) Is patient fasting? Y Non-Aa GFR Laboratory test result [facility] ([facility]) Is patient fasting? Y Afr Amer GFR Laboratory test result [facility] ([facility]) Is patient fasting? Y ID Date Data Source [id number] 02/02/2021 10:27:00 AM EDT [facility] ([facility]) Name Value Range Interpretation Code Description Data Elizabeth rce(s) Supporting Document(s) CBC W/Automated Diff Laboratory test result [facility] ([facility]) Is patient fasting? Y WBC 10.6 10^3/uL 4.2-11.0 [facility] ([facility]) Is patient fasting? Y RBC 5.63 10^6/uL 4.20-5.40 Above high normal [facility] ([facility]) Is patient fasting? Y Hemoglobin 15.9 g/dL 12.0-16.0 [facility] ([facility]) Is patient fasting? Y Hematocrit 49.7 % 37.0-47.0 Above high normal [facility] ([facility]) Is patient fasting? Y MCH 28.2 pg 27.0-34.0 [facility] ([facility]) Is patient fasting? Y MCV 88.3 fL 81.0-101 [facility] ([facility]) Is patient fasting? Y MCHC 32.0 g/dL 31.0-36.0 [facility] ([facility]) Is patient fasting? Y Platelets 397 10^3/uL 150-450 [facility] ([facility]) Is patient fasting? Y RDW 13.2 % 11.5-14.5 [facility] ([facility]) Is patient fasting? Y Neut 59.3 % 37.0-80.0 [facility] ([facility]) Is patient fasting? Y Lymph 28.9 % 25.0-40.0 [facility] ([facility]) Is patient fasting? Y MPV 10.1 fL 7.4-10.4 [facility] ([facility]) Is patient fasting? Y Eos 2.7 % 0.0-7.0 [facility] ([facility]) Is patient fasting? Y Asotin 8.1 % 3.0-8.0 Above high normal [facility] ([facility]) Is patient fasting? Y Baso 0.7 % 0.0-2.5 [facility] ([facility]) Is patient fasting? Y %NRBC 0.0 % 0.0-0.0 [facility] ([facility]) Is patient fasting? Y #Neut 6.27 10^3/uL 2.00-6.90 [facility] ([facility]) Is patient fasting? Y %Ig 0.3 % 0.0-0.0 Above high normal [facility] ([facility]) Is patient fasting? Y #Asotin 0.86 10^3/uL 0.00-0.90 [facility] ([facility]) Is patient fasting? Y #Lymph 3.05 10^3/uL 0.60-3.40 [facility] ([facility]) Is patient fasting? Y #Baso 0.07 10^3/uL 0.00-0.20 [facility] ([facility]) Is patient fasting? Y #Eos 0.29 10^3/uL 0.00-0.70 [facility] ([facility]) Is patient fasting? Y #NRBC 0.00 10^3/uL 0.00-0.00 [facility] ([facility]) Is patient fasting? Y #Ig 0.03 10^3/uL 0.00-0.10 [facility] ([facility]) Is patient fasting? Y Manual Diff Laboratory test result [facility] ([facility]) Is patient fasting? Y RBC Morph Laboratory test result [facility] ([facility]) Is patient fasting? Y ID Date Data Source [id number] 02/03/2021 08:27:00 AM EDT [facility] Name Value Range Interpretation Code Description Data Elizabeth rce(s) Supporting Document(s) Calcidiol [Moles/volume] in Serum or Plasma 11 NG/ML [facility] VITAMIN-D(2 5HYDROXY) Deficiency: <=20 ng/ml Insufficiency: 21-29 ng/ml Preferred level: => 30 ng/ml ID Date Data Source [id number] 02/02/2021 05:56:00 PM EDT [facility] Value Range Interpretation Code Description Data Elizabeth rce(s) Supporting Document(s) Thyroxine (T4) free index in Serum or Plasma by calculation 0.60 NG/DL 0.93 - 1.70 L [facility] ID Date Data Source [id number] 02/02/2021 05:56:00 PM EDT [facility] Value Range Interpretation Code Description Data Elizabeth rce(s) Supporting Document(s) Thyrotropin [Units/volume] in Serum or Plasma by Detec tion limit <= 0.05 mIU/L 6.52 uIU/mL 0.47 - 5.01 H [facility] ID Date Data Source [id number] 02/02/2021 05:49:00 PM EDT [facility] Value Range Interpretation Code Description Data Elizabeth rce(s) Supporting Document(s) Hemoglobin A1c/Hemoglobin.total in Blood 9.1 % 4.4 - 6.1 H [facility] {A1]{HB] ID Date Data Source [id number] 02/02/2021 05:38:00 PM EDT [facility] Value Range Interpretation Code Description Data Elizabeth rce(s) Supporting Document(s) [facility] Cholesterol [Mass/volume] in Serum or Plasma 196 MG/DL 131 - 200 [facility] Deprecated Triglyceride [Mass/volume] in Serum or Plasma 568 MG/DL 3 5 - 160 H [facility] HDL 28 MG/DL 29 - 86 L [facility] al Cholesterol in LDL [Mass/volume] in Serum or Plasma by Direc t assay 92 mg/dL 65 - 175 [facility] Cholesterol.total/Cholesterol in HDL [Mass Ratio] in Serum o r Plasma 7.0 3.2 - 4.4 H [facility] LDL/HDL 3.29 1.47 - 3.22 H [facility] ital CVE RISK CHOL/HDL LDL/HDLMEN: 1/2 AVERAGE 3.43 1.00 AVERAGE 4.97 3.55 2X AVERAGE 9.55 6.25 3X AVERAGE 23.99 7.99WOMEN: 1/2 AVERAGE 3.27 1.47 AVERAGE 4.44 3.22 2X AVERAGE 7.05 5.03 3X AVERAGE 11.04 6.14 ID Date Data Source [id number] 02/02/2021 05:38:00 PM EDT [facility] Name Value Range Interpretation Code Description Data Elizabeth rce(s) Supporting Document(s) COMPREHENSIVE METABOLIC PANEL [facility] COMPREHENSIVE METABOLIC PANEL Sodium [Moles/volume] in Serum or Plasma 133 mEq/L 134 - 153 L [facility] Potassium [Moles/volume] in Serum or Plasma 4.7 mEq/L 3.6 - 5.0 [facility] Chloride [Moles/volume] in Serum or Plasma 93 mEq/L 98 - 107 L [facility] Carbon dioxide, total [Moles/volume] in Serum or Plasma 29 MEQ/L 22 - 30 [facility] Glucose [Mass/volume] in Serum or Plasma 200 MG/DL 70 - 99 H [facility] BUN 5 MG/DL 7 - 21 L [facility] al Creatinine [Mass/volume] in Serum or Plasma 0.6 MG/DL 0.7 - 1.5 L [facility] BUN/CREAT 8 8 - 27 [facility] al Protein [Mass/volume] in Serum or Plasma 7.6 G/DL 6.3 - 8.2 [facility] Albumin [Mass/volume] in Serum or Plasma 4.6 G/DL 3.9 - 5.0 [facility] Globulin [Mass/volume] in Serum by calculation 3.0 GM/DL 2.4 - 3.2 [facility] A/G RATIO 1.5 0.8 - 2.0 [facility] Calcium [Mass/volume] in Serum or Plasma 9.5 MG/DL 8.4 - 10.2 [facility] Bilirubin.total [Mass/volume] in Serum or Plasma <0.7 MG/DL 0.2 - 1.3 [facility] Alkaline phosphatase [Enzymatic activity/volume] in Serum or Plasma 116 U/L 38 - 126 [facility] Aspartate aminotransferase [Enzymatic activity/volume] in Serum or Plasma 24 U/L 5 - 40 [facility] Alanine aminotransferase [Enzymatic activity/volume] in Seru m or Plasma 17 U/L 7 - 56 [facility] Anion gap 3 in Serum or Plasma 11.0 mmol/L 8.0 - 16.0 [facility] AGE 40 yrs [facility] al NON-AA GFR >60 mL/min [facility] ital AFR AMER GFR >60 mL/min [facility] spital Male GFR In terprentation 20-49 yrs >60 mL/min Normal 50-59 yrs >56 mL/min Normal 60-69 yrs >49 mL/min Normal 70-79yrs >42 mL/min Normal 80 and above >35 mL/min Normal Female GFR Interpretation 20-39 yrs >60 mL/min Normal 40-49 yrs >58 mL/min Normal 50-59 yrs >51 mL/min Normal 60-69 yrs >45 mL/min Normal 70-79 yrs >39 mL/min Normal 80 and above >32 mL/min Normal ID Date Data Source [id number] 02/02/2021 05:35:00 PM EDT [facility] Name Value Range Interpretation Code Description Data Elizabeth rce(s) Supporting Document(s) Magnesium [Mass/volume] in Serum or Plasma 1.7 MG/DL 1.7 - 2.2 [facility] ID Date Data Source [id number] 02/02/2021 05:13:00 PM EDT [facility] Name Value Range Interpretation Code Description Data Elizabeth rce(s) Supporting Document(s) CBC W/AUTOMATED DIFF [facility] COMPLETE BLOOD COUNT Leukocytes [#/volume] in Blood by Automated count 10.6 10^3/uL 4.2 - 11.0 [facility] Erythrocytes [#/volume] in Blood by Automated count 5.63 10^6/uL 4. 20 - 5.40 H [facility] Hemoglobin [Mass/volume] in Blood 15.9 g/dL 12.0 - 16.0 [facility] Hematocrit [Volume Fraction] of Blood by Automated count 49.7 % 3 7.0 - 47.0 H [facility] Erythrocyte mean corpuscular volume [Entitic volume] by Auto mated count 88.3 fL 81.0 - 101 [facility] Erythrocyte mean corpuscular hemoglobin [Entitic mass] by Automated count 28.2 pg 27.0 - 34.0 [facility] Erythrocyte mean corpuscular hemoglobin concentration [Mass/volume] by Automated count 32.0 g/dL 31.0 - 36.0 [facility] Erythrocyte distribution width [Ratio] by Automated count 13.2 % 11.5 - 14.5 [facility] Platelets [#/volume] in Blood by Automated count 397 10^3/uL 150 - 45 0 [facility] Platelet mean volume [Entitic volume] in Blood by Automated count 10.1 fL 7.4 - 10.4 [facility] Neutrophils/100 leukocytes in Blood by Automated count 59.3 % 37. 0 - 80.0 [facility] Lymphocytes/100 leukocytes in Blood by Manual count 28.9 % 25.0 - 40.0 [facility] Monocytes/100 leukocytes in Blood by Automated count 8.1 % 3.0 - 8.0 H [facility] Eosinophils/100 leukocytes in Blood by Automated count 2.7 % 0.0 - 7.0 [facility] Basophils/100 leukocytes in Blood by Automated count 0.7 % 0.0 - 2.5 [facility] %IG 0.3 % 0.0 - 0.0 [facility] %NRBC 0.0 % 0.0 - 0.0 [facility] al Neutrophils [#/volume] in Blood by Automated count 6.27 10^3/uL 2.00 - 6.90 [facility] Lymphocytes [#/volume] in Blood by Automated count 3.05 10^3/uL 0.60 - 3.40 [facility] Monocytes [#/volume] in Blood by Automated count 0.86 10^3/uL 0.00 - 0.90 [facility] Eosinophils [#/volume] in Blood by Automated count 0.29 10^3/uL 0.00 - 0.70 [facility] Basophils [#/volume] in Blood by Automated count 0.07 10^3/uL 0.00 - 0.20 [facility] #IG 0.03 10^3/uL 0.00 - 0.10 [facility] ospital #NRBC 0.00 10^3/uL 0.00 - 0.00 [facility] H ospital MANUAL DIFF NOT INDICATED [facility] RBC MORPH NOT INDICATED [facility] Ho spital ID Date Data Source [id number] 01/17/2021 09:33:00 AM EDT [facility] ([facility]) Name Value Range Interpretation Code Description Data Elizabeth rce(s) Supporting Document(s) US Doppler Unilateral Venous Leg LT Laboratory test result [facility] ([facility]) ID Date Data Source [id number] 01/08/2021 07:05:00 PM EDT [facility] Name Value Range Interpretation Code Description Data Elizabeth rce(s) Supporting Document(s) Trich vag by BA [facility] TESTS RESULT FLAG UNI TS REF RANGE LAB Trich vag by BA Negative (Negative) 01 FLAG LEGEND: L-Low Normal,H-High Normal,LL-Alert Low,HH-Alert High <-Panic Low,>-Panic High,A-Abnormal,AA-Critical Abnormal Performed at:01 RN [facility] [address] [id number] Loretta Hauser MD, ID Date Data Source [id number] 01/03/2021 08:23:00 PM EDT [facility] Name Value Range Interpretation Code Description Data Elizabeth rce(s) Supporting Document(s) SARS coronavirus 2 RNA [Presence] in Res piratory specimen by BA with probe detection NEGATIVE [facility] This lab was ordered by [facility] a nd reported by [facility]. ID Date Data Source [id number] 10/14/2020 06:43:31 PM EDT [facility] Name Value Range Interpretation Code Description Data Elizabeth rce(s) Supporting Document(s) ED Provider Note [facility] USIRFf4hCiPNJjMo61/LSUibYVCqc0AoEKzoLTs1AGtlVYTfY3RpYAN3iX5lSSV4BBzLErYzLbCnZzN5 [facility] [file] K[employer]+uHwNBUTxHv/+M2rKGFDYpFvnF22+JBOExL4HxrrrMS9LdeEGgVCRxJPn76tOhoNvHZooCHG0rHl8s [file] 33MIhDUIcLJPpaNcfhAu+kVbIZr9vea6FRy/o8ZS8EsQvUSqPOXcjPeEeSNF+[employer]ot[employer] Operator+e+05qLyvju3+2wu+ [file] DWQhYDNmMJQgYo4vAZWUWo8+WKtrdFGibRivWFXZFjxaGsL6ZOulTOYDAb8R ID Date Data Source [id number] 10/13/2020 10:15:03 AM EDT [facility] Name Value Range Interpretation Code Description Data Elizabeth rce(s) Supporting Document(s) Consultation [facility] MYJTTw9oHeCMIiIk00/LDLijHGSga3EwHOviWHl2UNpoUDTwV2UjFBS4lV1xLYS2YNsPBxFjLbEbVjW5 lbm MbYgnYIxAkBBZiOecVJdNxZKnnPakmuOAnMO7LeQY8UUFdG22aIYCkLGMpN9PxSRX9FHm+Nd4LNHEhaB OjWJ0ALepA1A7sv8k2Oe9+lT4EIJ40eFa0eog6bqQkWDw3i2zrkNFMkPerftlLanXo87Q//ckSFWWmyq 1otJtn92IhdozzbkL2uNnZvdYBp+8aWfhyn1Fcy8s/ FtlT83kb826FYYoA11Xh/zPswPMqoV5tzkQ529H/f+DFQO2/aXJdapkvIC6rOXx+lk81uEmNclzjEJxd jQYVBMiTrKZZmifc58Lk6uInob7G1gZX47eb2If3CXG/8pomZtNw6iU+vL5jQRDz9v74x7YatvNdmHZT mohawk+sLw7GRzYq48A1Rx/GXom7tvf6nNoJqxCU43HEhU [file] HpXXXmSDY3EzAqBF5NFt1BXwV9BXN6nSCsOw8RSso8BeyBMyQpRE0UYDp= ID Date Data Source [id number] 10/12/2020 10:11:00 PM EDT [facility] CT SOFT TISSUE NECK WITH CONTRAST [id number] INAL RESULTInterpreted by:Francisca Brandon MDINDICATION: 40-year-old female presenting with bleeding with cough from stoma site, s/p laryngectomy x19 years ago.TECHNIQUE: Multidetector axial CT images from the skull base to the thoracic inlet were obtained after the uneventful administration of 100 mL of Omnipaque-300 intravenous contrast. Coronal and sagittal reformatted images were also obtained from the axial slices. Automated dose lowering techniques and/or adjustment according to patient size were utilized for this exam.COMPARISON: CTA neck dated 04/15/2016FINDINGS: Stable postsurgical changes from total laryngectomy. Tracheostomy in place. Mild wall thickening with luminal narrowing in the hypopharynx, unchanged from 2016 examination. Interval resolution of previously seen mild wall thickening in the oropharynxThere is no abnormal enhancement or collection around the stoma at the base of the neck.There is a tiny amount of secretion in the dependent portion of the mid to distal trachea.The visualized portions of the brain parenchyma and orbits are grossly normal.There is a large polyp versus retention cyst in the right maxillary sinus. The remaining paranasal sinuses and mastoid air cells are clear.The thyroid gland is not well visualized.There is partial fusion of the C7-T1 vertebral bodies and facet joints.The remaining visualized osseous structures appear intact. There is no cervical lymphadenopathy.There are extensive atherosclerotic calcifications in the bilateral common carotid arteries. 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 No abnormal enhancement/collection near the stoma site.2. 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 Tiny amount of secretion in the dependent portion of the mid to distal trachea.4. 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 TECHNIQUE: Frontal and lateral radiographs of the chest were performed.COMPARISON:FINDINGS: The patient is rotated. The trachea and mediastinal structures are within the midline. The heart does not appear abnormally enlarged. No focal consolidation, evidence of pleural effusion or pneumothorax is visualized. There is mild soft tissue prominence within the right hilar region. There is mild haziness within the bilateral lower lungs. Osseous structures appear intact.IMPRESSION:Haziness bilateral lower lungs which may represent atelectasis.Mild soft tissue prominence in the right hilar region which may resent adenopathy.This document has been electronically signed by Maryse Leblanc MD on 10/12/2020 8:22 PM Name Value Range Interpretation Code Description Data Elizabeth rce(s) Supporting Document(s) ID Date Data Source [id number] 10/12/2020 07:56:39 PM [facility] Name Value Range Interpretation Code Description Data [facility] rce(s) Supporting Document(s) Leukocytes [#/volume] in Blood by Automated count 10.6 10*3/uL 4-10 [facility] Erythrocytes [#/volume] in Blood by Automated count 5.36 10*6/uL 4.1- 5.3 H [facility] Hemoglobin [Mass/volume] in Blood 15.2 g/dL 11.5-15.5 [facility] Hematocrit [Volume Fraction] of Blood by Automated count 45.2 % 3 6-45 H [facility] Erythrocyte mean corpuscular volume [Entitic volume] by Auto mated count 84.2 fL 80-96 [facility] Erythrocyte mean corpuscular hemoglobin [Entitic mass] by Automated count 28.3 pg 27-33 [facility] Erythrocyte mean corpuscular hemoglobin concentration [Mass/volume] by Automated count 33.6 g/dL [facility].0[facility] width [Ratio] by Automated count 17.7 % 11.5-14.5 [facility] Platelets [#/volume] in Blood by Automated count 336 10*3/uL 150-400 [facility] Differential cell count method - Blood [facility] Neutrophils/100 leukocytes in Blood by Automated count 61 % [facility] Lymphocytes/100 leukocytes in Blood by Automated count 25 % [facility] Monocytes/100 leukocytes in Blood by Automated count 9 % [facility] Eosinophils/100 leukocytes in Blood by Automated count 4 % [facility] Basophils/100 leukocytes in Blood by Automated count 1 % [facility] Neutrophils [#/volume] in Blood by Automated count 6.48 10*3/uL 1.8-7 .0 [facility] Lymphocytes [#/volume] in Blood by Automated count 2.62 10*3/uL 1.2-4 .0 [facility] Monocytes [#/volume] in Blood by Automated count 0.92 10*3/uL 0-0.8 H [facility] Eosinophils [#/volume] in Blood by Automated count 0.44 10*3/uL 0-0.5 [facility] Basophils [#/volume] in Blood by Automated count 0.10 10*3/uL 0-0.2 [facility] Nucleated erythrocytes/100 leukocytes [Ratio] in Blood by Automated count 0 /100{WBCs} 0-0 [facility] ID Date Data Source [id number] 10/12/2020 07:10:29 PM EDT [facility] Name Value Range Interpretation Code Description Data Elizabeth rce(s) Supporting Document(s) Leukocytes [#/volume] in Blood by Automated count 4-10 [facility] CALLED TO ESSENCE SOTELO IN ED AT 1909 BY 1767 Erythrocytes [#/volume] in Blood by Automated count 4.1-5. 3 [facility] Hemoglobin [Mass/volume] in Blood 11.5-15.5 [facility] Hematocrit [Volume Fraction] of Blood by Automated count 3 6-45 [facility] Erythrocyte mean corpuscular volume [Entitic volume] by Automate d count 80-96 [facility] Erythrocyte mean corpuscular hemoglobin [Entitic mass] by Au tomated count 27-33 [facility] Erythrocyte mean corpuscular hemoglobin concentration [Mass/volume] by Automated count 32.0-36.0 [facility] E[facility]throcyte distribution width [Ratio] by Automated count 11.5-14.5 [facility] Platelets [#/volume] in Blood by Automated count 150-400 [facility] Sample quality of Dried blood spot [facility] Differential cell count method - Blood [facility] ID Date Data Source [id number] 10/12/2020 07:23:32 PM EDT [facility] Name Value Range Interpretation Code Description Data Elizabeth rce(s) Supporting Document(s) Prothrombin time (PT) 12.2 s 12.5-14.9 L [facility] INR in Platelet poor plasma by Coagulation assay 0.90 [facility] Routine intensity oral anticoagulation I NR is typically 2.0-3.0. Target INR must be clinically individualized. ID Date Data Source [id number] 10/12/2020 07:53:27 PM EDT [facility] Name Value Range Interpretation Code Description Data Elizabeth rce(s) Supporting Document(s) Albumin [Mass/volume] in Serum or Plasma by Bromocresol green (BCG) dye binding method 4.2 g/dL 3.5-5.2 [facility] Bilirubin.total [Mass/volume] in Serum or Plasma 0.2 mg/dL <1.2 [facility] Calcium [Mass/volume] in Serum or Plasma 9.7 mg/dL 8.6-10.0 [facility] Chloride [Moles/volume] in Serum or Plasma 90 mmol/L 98-107 L [facility] Creatinine [Mass/volume] in Serum or Plasma 0.84 mg/dL 0.50-0.90 [facility] Glucose [Mass/volume] in Serum or Plasma 323 mg/dL 70-140 H [facility] Alkaline phosphatase [Enzymatic activity/volume] in Serum or Plasma 109 U/L 35-104 H [facility] Potassium [Moles/volume] in Serum or Plasma 4.4 mmol/L 3.4-5.1 [facility] Hemolyzed Protein [Mass/volume] in Serum or Plasma 7.4 g/dL 6.4-8.3 [facility] Sodium [Moles/volume] in Serum or Plasma 134 mmol/L 136-145 L [facility] Aspartate aminotransferase [Enzymatic activity/volume] in Serum or Plasma 19 U/L <32 [facility] Hem[facility]zed Urea nitrogen [Mass/volume] in Serum or Plasma 4 mg/dL 6-20 L [facility] Osmolality of Serum or Plasma by calculation 287 mosm/kg 275-300 [facility] Creatinine/Urea nitrogen [Mass Ratio] in Serum or Plasma 5 [facility] Bicarbonate [Moles/volume] in Serum 35 mmol/L 22-29 H [facility] Alanine aminotransferase [Enzymatic activity/volume] in Seru m or Plasma 11 U/L <33 [facility] Anion gap 3 in Serum or Plasma 9 mmol/L 8-15 [facility] Glomerular filtration rate/1.73 sq M pre dicted among non-blacks [Volume Rate/Area] in Serum or Plasma by Creatinine-based formula (MDRD) 85 mL/min/1.73m2 >60 [facility] Glomerular filtration rate/1.73 sq M pre dicted among blacks [Volume Rate/Area] in Serum or Plasma by Creatinine-based formula (MDRD) >60 [facility] ID Date Data Source [id number] 08/22/2020 03:21:00 PM EST [facility] ([facility]) Name Value Range Interpretation Code Description Data Elizabeth rce(s) Supporting Document(s) Mammo Screening Bilateral with CAD Laboratory test result [facility] ([facility]) ID Date Data Source [id number] 06/23/2020 05:54:00 PM EST [facility] ([facility]) Name Value Range Interpretation Code Description Data Elizabeth e(s) Supporting Document(s) Respiratory Panel Laboratory test result [facility] ([facility]) This respiratory PCR panel detects Influ mattie [...] 1: HUMAN RHINOVIRUS/ENTEROVIRUS ID Date Data Source [id number] 06/23/2020 05:54:00 PM EST [facility] ([facility]) Name Value Range Interpretation Code Description Data Elizabeth rce(s) Supporting Document(s) Lactate [Mass/volume] in Serum or Plasma 1.4 mmol/L 0.4-2.0 Normal (applies to non-numeric results) [facility] Y/N query for Sepsis Lactate Rule: Y ID Date Data Source [id number] 06/23/2020 05:54:00 PM EST [facility] ([facility]) Name Value Range Interpretation Code Description Data Elizabeth rce(s) Supporting Document(s) Glucose, Fasting 206 mg/dL 70-100 Above high normal [facility] ([facility]) Blood Urea Nitrogen 6 mg/dL 7-18 Below low normal [facility] ([facility]) Creatinine For GFR 0.68 mg/dL 0.55-1.30 Normal (applies to non -numeric results) [facility] ([facility]) Glomerular Filtration Rate Laboratory test result Normal (applies to non- numeric results) [facility] ([facility]) <content>Units are mL/min/1.73 m2</content>
<content></content>
<content>Chronic Kidney Disease Staging per NKF:</content>
<content></content>
<content>Stage I & II GFR >=60 Normal to Mildly Decreased</content>
<content>Stage III GFR 30- 59 Moderately Decreased</content>
<content>Stage IV GFR 15-29 Severely Decreased</content>
<content>Stage V GFR <15 Very Little GFR Left</content>
<content>ESRD GFR <15 on DISPATCHER RADIOACTIVE WASTE DISPOSAL</content>
<content></content> Sodium Level 128 meq/L 136-145 Below low normal [facility] ([facility]) Potassium Serum 4.1 meq/L 3.5-5.1 Normal (applies to non-numeric results) [facility] ([facility]) Carbon Dioxide Level 31 meq/L 21-32 Normal (applies to non-num sukumar results) [facility] ([facility]) Chloride Level 92 meq/L 98-107 Below low normal [facility] ([facility]) Calcium Level 9.4 mg/dL 8.5-10.1 Normal (applies to non-numeric re sults) [facility] ([facility]) Anion Gap 5 meq/L 8-16 Below low normal [facility] ( [facility]) ID Date Data Source [id number] 06/23/2020 05:54:00 PM EST [facility] ([facility]) Name Value Range Interpretation Code Description Data Elizabeth rce(s) Supporting Document(s) White Blood Count 17.6 10 4.0-10.0 Above high normal [facility] ([facility]) Red Blood Count 5.33 10 4.00-5.40 Normal (applies to non-numeric results) [facility] ([facility]) Hemoglobin 14.4 g/dL 12.0-15.5 Normal (applies to non-numeric resul ts) [facility] ([facility]) Hematocrit 45.8 % 36.0-47.0 Normal (applies to non-numeric resul ts) [facility] ([facility]) Mean Corpuscular Volume 85.9 fl 80.0-96.0 Normal ( applies to non-numeric results) [facility] ([facility]) Mean Corpuscular Hemoglobin 27.0 pg 27.0-33.0 Norm al (applies to non-numeric results) [facility] ([facility]) Mean Corpuscular HGB Conc 31.4 g/dL 32.0-36.5 Below low normal [facility] ([facility]) Red Cell Distribution Width 14.8 % 11.5-14.5 Above high normal [facility] ([facility]) Platelet Count, Automated 338 10 150-450 Normal (applies to non-numeric results) [facility] ([facility]) Neutrophils % 79.1 % 36.0-66.0 Above high normal [facility] ([facility]) Lymph % 10.8 % 24.0-44.0 Below low normal [facility] ( [facility]) [place] % 9.0 % 0.0-5.0 Above high normal [facility] ([facility]) Eos % 0.2 % 0.0-3.0 Normal (applies to non-numeric resul ts) [facility] ([facility]) Baso % 0.2 % 0.0-1.0 Normal (applies to non-numeric resul ts) [facility] ([facility]) Immature Granulocyte % 0.7 % 0-3.0 Normal (applies to non-n umeric results) [facility] ([facility]) Nucleated Red Blood Cell % 0.0 % 0-0 Normal (applies to n on-numeric results) [facility] ([facility]) Neutrophils # 13.9 10 1.5-8.5 Above high normal [facility] ([facility]) Lymph # 1.9 10 1.5-5.0 Normal (applies to non-numeric resul ts) [facility] ([facility]) Eos # 0.0 10 0.0-0.5 Normal (applies to non-numeric resul ts) [facility] ([facility]) [place] # 1.6 10 0.0-0.8 Above high normal [facility] ([facility]) Baso # 0.0 10 0.0-0.2 Normal (applies to non-numeric resul ts) [facility] ([facility]) ID Date Data Source [id number] 06/23/2020 05:54:00 PM EST [facility] Name Value Range Interpretation Code Description Data Elizabeth rce(s) Supporting Document(s) SARS-CoV-2 (COVID 19) [facility] This lab was ordered by [facility] a nd reported by [facility]. ID Date Data Source [id number] 06/23/2020 05:08:00 PM EST [facility] ([facility]) Name Value Range Interpretation Code Description Data Elizabeth rce(s) Supporting Document(s) ABG pH (Arterial) 7.399 units 7.350-7.450 Normal (applie s to non-numeric results) [facility] ([facility]) ABG Partial Pressure O2 50.8 mmHg 75.0-100.0 Below low normal [facility] ([facility]) ABG Partial Pressure Co2 49.9 mmHg 35.0-45.0 Above high normal [facility] ([facility]) ABG Total Co2 31.7 meq/L 22.0-29.0 Above high normal [facility] ([facility]) ABG Hco3 30.1 meq/L 22.0-26.0 Above high normal [facility] ([facility]) ABG Base Excess 4.2 Above high normal [facility] ([facility]) ABG Standard Hco3 27.9 meq/L 22.0-26.0 Above high normal [facility] ([facility]) ABG O2 Saturation 88.7 % 95.0-99.0 Below low normal [facility] ([facility]) ID Date Data Source [id number] 06/29/2020 08:28:00 AM [facility] Imaging Services Department Imaging Report [address] [place], [place] [address] %(RAD)RES..mtdd.print.filter("line") Name: ESSENCE AGUERO : 1980 Age/Sex: 39F Ordering Provider: VANESSA Haywood Med Rec #: [id number] Reg Status: [facility] Room #: Date of Service: 06/21/20 Report Number: [id number] cc:TOYA Gorman Send Report To: [id number] XRP/XR Chest 2 View [Pa & Lat] [...] 1023 Dictation Date/Time: 06/28/20 1355 Transcribed Date/Time: 06/29/20827 Film Cutter: DIAZ Name Value Range Interpretation Code Description Data Elizabeth rce(s) Supporting Document(s) ID Date Data Source [id number] 05/16/2020 02:20:00 PM EDT [facility] ([facility]) Name Value Range Interpretation Code Description Data Elizabeth rce(s) Supporting Document(s) Appearance of Urine Laboratory test result [facility] ([facility]) Color of Urine Laboratory test result [facility] ([facility]) Spec [place] 1.000 [facility] ([facility]) pH of Urine by Test strip 8 [facility] ([facility]) Leukocytes Laboratory test result [facility] ([facility]) Protein [Presence] in Urine by Test strip Laboratory test result [facility] ([facility]) Nitrate [Presence] in Urine Laboratory test result [facility] ([facility]) Ketones [Presence] in Urine by Test strip Laboratory test result [facility] ([facility]) Inhouse Glucose Laboratory test result [facility] ([facility]) Urobilinogen Laboratory test result [facility] ([facility]) Blood type and Indirect antibody screen panel - Blood Laboratory test result [facility] ([facility]) Procedure Social History Code Duration Value Status Description Data Source(s ) Smoking 06/14/2021 12:00:00 AM EST Current Smoker completed Curre nt Smoker eCW1 ([facility]) Alcohol intake 10/12/2020 12:00:00 AM EDT Current drinker of al cohol (finding) completed Current drinker of alcohol (finding) [facility] Smoking 10/12/2020 12:00:00 AM EDT Current every day smoker co mpleted Current every day smoker [facility] Vital Signs ID Date Data Source UNK Name Value Range Interpretation Code Description Data Source(s) Body height 69.25 [in_i] 69.25 [in_i] [facility]CW1 ([facility]) Body weight 264.0 [lb_av] 264.0 [lb_av] eCW1 ([facility]) Body mass index (BMI) [Ratio] 38.70 kg/m2 38.70 kg/m2 [facility] ([facility]) Body temperature 98.0 [degF] 98.0 [degF] eCW1 ( [facility]) Heart rate 90 /min 90 /min eCW1 ([facility]) Respiratory rate 22 /min 22 /min eCW1 ([facility]) Oxygen saturation in Arterial blood by Pulse oximetry 92 % 92 % eCW1 ([facility]) Respiratory rate 16 /min 16 /min [facility] ( [facility]) Body height 71 [in_i] 71 [in_i] [facility] ([facility]) 5'11" Body surface area Derived from formula 2.37 m2 2.37 m2 [facility] ([facility]) Body temperature 97.3 [degF] 97.3 [degF] [facility] ([facility]) Systolic blood pressure 122 mm[Hg] 122 mm[Hg] [facility] ([facility]) Heart rate 78 /min 78 /min [facility] ([facility]) Oxygen saturation in Arterial blood by Pulse oximetry 89 % 89 % [facility] ([facility]) Body weight 264.25 [lb_av] 264.25 [lb_av] [facility] ([facility]) Body weight 119.864 kg 119.864 kg [facility] ([facility]) Diastolic blood pressure 80 mm[Hg] 80 mm[Hg] [facility] ([facility]) Body mass index (BMI) [Ratio] 36.9 kg/m2 36.9 k g/m2 [facility] ([facility]) Heart rate 112 /min 112 /min [facility] ([facility]) Body temperature 97.9 [degF] 97.9 [degF] [facility] ([facility]) Oxygen saturation in Arterial blood by Pulse oximetry 94 % 94 % [facility] ([facility]) Body weight 267.25 [lb_av] 267.25 [lb_av] [facility] ([facility]) Respiratory rate 20 /min 20 /min [facility] ( [facility]) Body surface area Derived from formula 2.39 m2 2.39 m2 [facility] ([facility]) Body weight 121.225 kg 121.225 kg [facility] ([facility]) Body height 71 [in_i] 71 [in_i] [facility] ([facility]) 5'11" Body mass index (BMI) [Ratio] 37.3 kg/m2 37.3 k g/m2 [facility] ([facility]) Systolic blood pressure 132 mm[Hg] 132 mm[Hg] [facility] ([facility]) Diastolic blood pressure 78 mm[Hg] 78 mm[Hg] [facility] ([facility]) Body surface area Derived from formula 2.41 m2 2.41 m2 [facility] ([facility]) Systolic blood pressure 130 mm[Hg] 130 mm[Hg] [facility] ([facility]) Diastolic blood pressure 72 mm[Hg] 72 mm[Hg] [facility] ([facility]) Heart rate 80 /min 80 /min [facility] ([facility]) Body temperature 98.1 [degF] 98.1 [degF] [facility] Respiratory rate 18 /min 18 /min [facility] ( [facility]) Oxygen saturation in Arterial blood by Pulse oximetry 90 % 90 % [facility] ([facility]) Body weight 275.00 [lb_av] 275.00 [lb_av] [facility] ([facility]) Body weight 124.740 kg 124.740 kg [facility] Body height 71 [in_i] 71 [in_i] [facility] 5'11" Body mass index (BMI) [Ratio] 38.4 kg/m2 38.4 k g/m2 [facility] [facility] ([facility]) ID Date Data Source [id number] 06/12/2021 11:54:00 AM EST [facility] Name Value Range Interpretation Code Description Data Source(s) Weight Measurement Method 8 8 [facility] Weight 3840 3840 [facility] pital Temperature Source 7 7 [facility] Temperature 97.4 97.4 [facility] spital Respiratory Effort 1 1 [facility] Respiratory Rate 18 18 [facility] Pulse Assessment Method 4 4 [facility] Pulse Rate 83 83 [facility] Height 71 71 [facility] Blood Pressure 127/90 127/90 [facility] Weight Measurement Method 8 8 [facility] Weight 3840 3840 [facility] pital Temperature Source 7 7 [facility] Temperature 97.4 97.4 [facility] spital Respiratory Effort 1 1 [facility] Respiratory Rate 18 18 [facility] Pulse Assessment Method 4 4 [facility] Pulse Rate 89 89 [facility] pital Height 71 71 [facility] pital Blood Pressure 199/118 199/118 [facility] ID Date Data Source [id number] 12/20/2020 07:48:00 PM EDT [facility] Name Value Range Interpretation Code Description Data Source(s) Weight 4160 4160 [facility] pital Temperature Source 7 7 [facility] Temperature 97.6 97.6 [facility] Respiratory Effort 1 1 [facility] Respiratory Rate 18 18 [facility] Pulse Assessment Method 4 4 [facility] Pulse Rate 95 95 [facility] pital Blood Pressure 129/87 129/87 [facility] Weight 4160 4160 [facility] pital Temperature Source 7 7 [facility] Temperature 97.6 97.6 [facility] Respiratory Effort 1 1 [facility] Respiratory Rate 18 18 [facility] Pulse Assessment Method 4 4 [facility] Pulse Rate 95 95 [facility] Blood Pressure 129/87 129/87 [facility] Weight 4160 4160 [facility] pital Temperature Source 7 7 [facility] Temperature 97.6 97.6 [facility] Respiratory Effort 1 1 [facility] Respiratory Rate 18 18 [facility] Pulse Assessment Method 4 4 [facility] Pulse Rate 95 95 [facility]ital Blood Pressure 129/87 129/87 [facility] ID Date Data Source [id number] 10/16/2020 05:15:29 PM EDT [facility] Name Value Range Interpretation Code Description Data Source(s) WEIGHT RECORDED 270 lb 270 lb [facility] Body height Measured 71 in 71 in [address] [facility] ID Date Data Source [id number] 06/29/2020 10:24:00 AM EST [facility] Name Value Range Interpretation Code Description Data Source(s) Weight Measurement Method 8 8 [facility] Weight 4400 4400 [facility] pital Temperature Source 7 7 [facility] Temperature 97.1 97.1 [facility] spital Respiratory Effort 1 1 [facility] Respiratory Rate 16 16 [facility] Pulse Assessment Method 4 4 [facility] Pulse Rate 86 86 [facility] pital Height 71 71 [facility] Blood Pressure 111/78 111/78 [facility]
[2021-07-02 19:01] LABS: ABG BASE EXCESS 2.5 (-2.0-2.0); ABG HCO3 26.8 MEQ/L (22.0-26.0); ABG O2 SATURATION 88.4 % (95.0-99.0); ABG PARTIAL PRESSURE CO2 40.3 mmHg (35.0-45.0); ABG STANDARD HCO3 26.5 MEQ/L (22.0-26.0); ABG TOTAL CO2 28.1 MEQ/L (22.0-29.0); ABG pH (ARTERIAL) 7.441 UNITS (7.350-7.450)
[2021-07-02 19:04] LABS: ABG PARTIAL PRESSURE O2 48.2 mmHg (75.0-100.0)
--- NOTE | 2021-07-02 19:11 | REP ---
INDICATION: CHEST PAIN. COMPARISON: January 03, 2021. TECHNIQUE: Portable upright AP chest radiograph. FINDINGS: The lungs are well inflated and free of infiltrate. Pleural angles are sharp. Heart size is normal. Pulmonary vasculature is not increased. IMPRESSION: No active disease. <Electronically signed by Jacinto Brady > 07/02/21 1549
[2021-07-02 20:15] LABS: CK-MB VALUE MASS < 1.0 NG/ML (<3.6); CPK CREATINE PHOSPHOKINASE 109 U/L (26-192); MB/CK RELATIVE INDEX 0.92 (< OR =4)
[2021-07-02 20:17] LABS: ALBUMIN 3.8 GM/DL (3.2-5.2); ALT/SGPT 49 U/L (12-78); BILIRUBIN,DIRECT < 0.1 MG/DL (0.0-0.2); BILIRUBIN,TOTAL 0.3 MG/DL (0.2-1.0); BLOOD UREA NITROGEN 8 MG/DL (7-18); CALCIUM LEVEL 9.3 MG/DL (8.5-10.1); CARBON DIOXIDE LEVEL 28 MEQ/L (21-32); CHLORIDE LEVEL 92 MEQ/L (98-107); CREATININE FOR GFR 0.84 MG/DL (0.55-1.30); FREE T4 0.28 NG/DL (0.76-1.46); GLOMERULAR FILTRATION RATE > 60.0 (>58); GLUCOSE, FASTING 261 MG/DL (70-100); NT-PRO BNP 20 PG/ML (<125); POTASSIUM SERUM 3.9 MEQ/L (3.5-5.1); SODIUM LEVEL 131 MEQ/L (136-145); TOTAL PROTEIN 7.3 GM/DL (6.4-8.2)
[2021-07-02] MEDS: ACETAMINOPHEN TAB 650MG DOSE (2X325MG) PO ONE ×2 (20:17→20:30)
[2021-07-02] MEDS: ACETAMINOPHEN 325 MG/10.15 ML UDC PO ONE (20:25)
[2021-07-02] MEDS ORDERED: MOM 30ML SUSPENSION UDC PO PRN (20:50)
[2021-07-02] MEDS ORDERED: MAALOX 30 ML SUSP *UDC PO PRN (20:50)
[2021-07-02] MEDS ORDERED: ACETAMINOPHEN TAB 650MG DOSE (2X325MG) PO PRN (20:50)
--- NOTE | 2021-07-02 20:58 | HPEPDOC ---
[facility] Medical History & Physical Date of Admission Jul 02, 2021 Date of Service: Jul 02, 2021 History and Physical CHIEF COMPLAINT: shortness of breath HISTORY OF PRESENT ILLNESS: Ms. Bradshaw is a pleasant 40-year-old female with a past medical history of laryngeal cancer status post laryngectomy and radiation 2001, status post decannulated stoma, type 2 diabetes, CVA 2015 with no residual deficits, panic disorder, depression, asthma, hypothyroidism. She presents to the ER with a 3-day history of shortness of breath. Her recently tested positive for Covid. [facility] panel is positive for COVID-19 in the ER. Patient was hypoxic to the mid 80s and required trach collar at 15 L/min. She is presently saturating 96% on the trach collar. It is important to note that the patient has limited ability to communicate although she speaks through her trach and some other words and her meaning are able to be determined if she speaks very slowly. At this time patient appears to be very anxious and has pressured speech therefore it is difficult to understand her entirely. Much of the prior medical history was obtained from previous records. She states that her shortness of breath is mildly improved. Of concern, she reports having hemoptysis for the past 3 years and has not followed up with a toe laster or an ENT surgeon. Patient also continues to report left-sided chest pressure unrelated to breathing. Initial troponins in the ER were negative. EKG did not show ischemic changes. He does not have leukocytosis but is febrile to 100.8. Her initial arterial blood gas showed a PO2 of 48.9 with a pH of 7.441 and bicarb of 26.8. Concern that this was a venous blood gas is that of an ABG. Repeat ABG showing improvement in PO2 at 69.2 with a pH of 7.387 and a CO2 of 47.0. Patient was admitted to [facility] for PCU status hospitalist service. She has numerous chronic complaints including right shoulder pain, right arm paresthesia with right neck pain, as well as repeated periods of unsteady gait and falls with left-sided lumbar radiculopathy radiating down the left posterior leg. 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 These findings are noted on MRI lumbar spine on 01/04/2021. Patient does not report acutely worsening symptoms and states that these changes are chronic. PAST MEDICAL HISTORY: History is obtained from previous medical record Laryngeal cancer status post laryngectomy and decannulated tracheostomy in 2001, post radiation therapy Type 2 diabetes [id number] Again 2016 without residual deficit Panic disorder Depression Obesity GERD Dyslipidemia Hypothyroidism PAST SURGICAL HISTORY: Decannulated tracheostomy in 2001 Hysterectomy Cholecystectomy SOCIAL HISTORY: Per notes uses THC and smokes tobacco per FAMILY HISTORY: This record indicates history of diabetes and hypertension in the family ALLERGIES: Please see below. REVIEW OF SYSTEMS: 10 point ROS was attempted to be performed, relevant findings were noted in the HPI. ROS is limited to the patient stimulability to communicate clearly. HOME MEDICATIONS: Please see below. PHYSICAL EXAMINATION: VITAL SIGNS: please see below General: Patient appears anxious in bed frequently turning clinic for HEENT: PERRLA, EOMI, sclerae clear Neck: supple, normal ROM, no JVD Respiratory: Fair inspiratory effort, no crackles, no rales. Lung expansion bilateral symmetric CVS: RRR, normal S1, S2, no murmurs Abdo: soft, no masses, no hepatosplenomegaly, BS+, no rebound tenderness Extremities: no edema, pulses 2+ MSK: no joint deformities, normal ROM Neuro: no focal neuro deficits, moving all 4 extremities, CN2-[address] ength 5/5 in all 4 extremities. No nystagmus. Psych: calm, cooperative, AAO x 3 LABORATORY DATA: See below. IMAGING: Chest x-ray on 07/02/2021: No active disease MICROBIOLOGY: Please see below. ASSESSMENT:Ms. 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 She presents with acute hypoxic respiratory failure secondary to COVID-19 infection, due to sick contact. She meets sepsis criteria. Patient also complaining of hemoptysis shortness of breath and left-sided chest pain. For this reason CT angiography will be ordered. Rule out pulmonary embolism. Patient has numerous medical complaints pertaining to her right shoulder pain right neck pain left sided radiculopathy. Patient is admitted to Covid unit under PCU status she will be given a Decadron remdesivir and likely baricitinib. . PLAN: Sepsis/Acute hypoxic respiratory failure secondary COVID-19 infection - febrile to 100.8. No leukocytosis. tachypneic. - desaturated to mid 80s, was placed on trach collar at 15 LPM, improved to 95%. - s/p 125 mg solumedrol - cardiac markers negative in ER - admit to PCU - start decadron 6 mg IV daily. - start remdesivir regimen - start baricitinib (14 days course, or until discharge home). - covid inflammatory lab marker panel ordered, will trend - levalburterol nebs prn #L chest pain - initial cardiac markers negative - no ischemic changes on EKG - will trend troponins - obtain CTA chest to r/o PE - obtain bilateral LE venous duplex to r/o DVT #Hemoptysis - chronic per patient, ongoing x 3 years - does not follow up with pulmonary or ENT - CXR reviewed above, no acute findings - obtain CTA chest to r/o PE, assess for masses? in hypercoagulable states 2/2 covid-19 - f/u bilateral venous duplex - use humidified O2 - D/w ENT Dr. David, agrees with plan - may require bronchoscopy in future - no anemia on CBC. 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 - PT eval ordered - reports no issues with toilet habit # NIDDM wit neuropathy - ISS, FSB S AC and HS - A1c 9.2 in 01/09 - repeat a1c - check lipid panel - takes gabapentin 1200 mg TID, dose is very high, resume at 800 mg TID # hx of CVA w/o residual deficits/ DLP -c/w start ASA and Statin # Panic disorder with history of depression -c/w Duloxetine Hydroxyzine - appears very anxious, will order ativan prn # GERD - Omeprazole # Chronic Asthma - c/w Montelukast, xopenex prn - c/w pulmicort # Hypothyroidism - TSH 48.5 - T4 0.28 - takes levothyroxine 200 mcg daily - I am uncertani about compliance, will increase dose slightly to 220 mcg daily - will need to repeat TFTs in 4-6 weeks. # Obesity Complicates care DVT ppx: - SCDs. TEDs. - heparin 5000 untis q8h. Hgb is stable, if drop, will stop (reported chronic hemoptysis) Vital Signs Vital Signs Date Time Temp Pulse Resp B/P (MAP) Pulse Ox O2 Delivery O2 Flow Rate FiO2 07/02/21 19:37 18 07/02/21 19:30 100.8 94 97 Trach Collar 15.0 07/02/21 19:15 150/78 (102) Laboratory Data Labs 24H Laboratory Tests 2 07/02/21 18:39: Blood Gas Bicarbonate Standard 26.5H, Arterial Blood pH 7.441, Arterial Blood Partial Pressure CO2 40.3, Arterial Blood Partial Pressure O2 48.2*L, Arterial Blood Total CO2 28.1, Arterial Blood HCO3 26.8H, Arterial Blood Base Excess 2.5H, Arterial Blood Oxygen Saturation 88.4L 07/02/21 18:43: Immature Granulocyte % (Auto) 0.2, Neutrophils (%) (Auto) 71.4H, Lymphocytes (%) (Auto) 14.2L, Monocytes (%) (Auto) 10.0H, Eosinophils (%) (Auto) 3.2H, Basophils (%) (Auto) 1.0, Neutrophils # (Auto) 5.7, Lymphocytes # (Auto) 1.1L, Monocytes # (Auto) 0.8, Eosinophils # (Auto) 0.3, Basophils # (Auto) 0.1, Nucleated Red Blood Cells % (auto) 0.0 07/02/21 19:21: Anion Gap 11, Glomerular Filtration Rate > 60.0, Calcium Level 9.3, Total Bilirubin 0.3, Direct Bilirubin < 0.1, Aspartate Amino Transf (AST/SGOT) 65H, Alanine Aminotransferase (ALT/SGPT) 49, Alkaline Phosphatase 106, Total Creatine Kinase 109, Creatine Kinase MB < 1.0, Creatine Kinase MB Relative Index 0.92, Troponin I High Sensitivity 9.0, MV-Ccb-K-Type Natriuretic Peptide 20, Total Protein 7.3, Albumin 3.8, Albumin/Globulin Ratio 1.1L, Thyroid Stimulating Hormone (TSH) 48.500H, Free Thyroxine 0.28L CBC/BMP Laboratory Tests 07/02/21 18:43 07/02/21 19:21 Microbiology Microbiology 07/02/21 Respiratory Virus Panel (PCR) (JUAN PABLO) - Final, Complete SARS-CoV-2 (COVID 19) 07/02/21 Blood Culture, Received Pending 07/02/21 Blood Culture, Received Pending Home Medications Scheduled Aspirin (Aspirin) 81 Mg Tab.chew, 81 MG PO DAILY Atorvastatin Calcium (Atorvastatin Calcium) 20 Mg Tablet, 20 MG PO DAILY Budesonide (Budesonide) 0.5 Mg/2 Ml Ampul.neb, 0.5 MG NEB BID Duloxetine Hcl (Duloxetine HCl) 60 Mg Capsule.dr, 60 MG PO QHS Gabapentin (Gabapentin) 600 Mg Tab, 1,200 MG PO TID Levothyroxine Sodium (Levothyroxine Sodium) 200 Mcg Tablet, 200 MCG PO DAILY Metformin HCl (Metformin HCl) 1,000 Mg Tablet, 1,000 MG PO BID Montelukast Sodium (Montelukast Sodium) 10 Mg Tablet, 10 MG PO QHS Omeprazole (Omeprazole) 40 Mg Cap, 40 MG PO QHS Scheduled PRN Acetaminophen (Tylenol) 325 Mg Tablet, 650 MG PO Q4H PRN for PAIN / FEVER Albuterol Sulfate (Albuterol Sulfate Hfa) 8.5 Gm Hfa.aer.ad, 2 PUFFS INH Q4-6HP PRN for SHORTNESS OF BREATH Cyclobenzaprine HCl (Cyclobenzaprine HCl) 10 Mg Tablet, 10 MG PO TID PRN for MUSCLE SPASMS Fluticasone Propionate (Flonase Allergy Relief) 9.9 Ml [place].susp, 1 SPRAY NA BID PRN for NASAL CONGESTION Hydroxyzine HCl (Hydroxyzine HCl) 25 Mg Tablet, 25 MG PO QID PRN for ANXIETY Ipratropium/Albuterol Sulfate (Iprat-Albut 0.5-3(2.5) mg/3 ml) 1 Harriet Harriet, 3 ML INH QID PRN for SHORTNESS OF BREATH Miscellaneous Medications [Med Rec Comment] PT. STATES PT HAS NOT TAKEN ANY MEDS IN 3 DAYS OR MORE DUE TO BEING ILL Allergies Coded Allergies: cefuroxime (Verified Allergy, Intermediate, RASH/HIVES, 09/25/20) moxifloxacin (Verified Allergy, Intermediate, HIVES, 09/25/20) sulfamethoxazole (Verified Allergy, Intermediate, HIVES, 09/25/20) trimethoprim (Verified Allergy, Intermediate, HIVES, 09/25/20) A-FIB/CHADSVASC A-FIB History Current/History of A-Fib/PAF?: No TIARA TRAVIS MD Jul 02, 2021 20:58
[2021-07-02] MEDS: OMEPRAZOLE 20 MG CAP PO SCH (21:00)
[2021-07-02] MEDS: HumaLOG INSULIN (NovoLOG) PER UNIT SC SCH (21:00)
[2021-07-02] MEDS: DULoxetine 30MG CAPSULE (CYMBALTA) PO SCH (21:00)
[2021-07-02] MEDS: MONTELUKAST 10 MG TAB PO SCH (21:00)
[2021-07-02] MEDS: zolPIDEM TARTRATE 5 MG TAB PO SCH (21:00)
[2021-07-02] MEDS: GABAPENTIN 400MG CAP PO SCH (21:00)
[2021-07-02] MEDS ORDERED: ALBU8.5H INH (21:13)
[2021-07-02] MEDS ORDERED: ATOR1TAB21 PO (21:13)
[2021-07-02] MEDS ORDERED: BUDE0.5S6 NEB (21:13)
[2021-07-02] MEDS ORDERED: ASPI81CH33 PO (21:13)
[2021-07-02] MEDS ORDERED: HOME MED LIST COMPLETE! XX SCH (21:15)
--- OUTSIDE RECORDS SUMMARY | 2021-07-02 21:19 | CCD ---
Author Author [facility] Organization [facility] Address Unknown Phone Unavailable Care Team Providers Care Environmental Conservation Officer Name Role Phone Dario, L Swathi DEAN OF BOYS Unavailable Unavailable Opolis, L Swathi DEAN OF BOYS Unavailable Unavailable Opolis, L Swathi DEAN OF BOYS Unavailable Unavailable Opolis, L Sawthi DEAN OF BOYS Unavailable Unavailable Dario, L Swathi DEAN OF BOYS Unavailable Unavailable Dario, L Swathi DEAN OF BOYS Unavailable Unavailable Dario, L Swathi DEAN OF BOYS Unavailable Unavailable Dario, L Swathi DEAN OF BOYS Unavailable Unavailable Opolis, L Swathi DEAN OF BOYS Unavailable Unavailable Dario, L Swathi DEAN OF BOYS Unavailable Unavailable Dario, L Swathi DEAN OF BOYS Unavailable Unavailable Dario, L Swathi DEAN OF BOYS Unavailable Unavailable Opolis, L Swathi DEAN OF BOYS Unavailable Unavailable Opolis, L Swathi DEAN OF BOYS Unavailable Unavailable Dario, L Swathi DEAN OF BOYS Unavailable Unavailable Dario, L Swathi DEAN OF BOYS Unavailable Unavailable Dario, L Swathi DEAN OF BOYS Unavailable Unavailable Opolis, L Swathi DEAN OF BOYS Unavailable Unavailable Opolis, L Swathi DEAN OF BOYS Unavailable Unavailable Opolis, L Swathi DEAN OF BOYS Unavailable Unavailable Opolis, L Swathi DEAN OF BOYS Unavailable Unavailable Dario, L Swathi DEAN OF BOYS Unavailable Unavailable Dario, L Swathi DEAN OF BOYS Unavailable Unavailable Dario, L Swathi DEAN OF BOYS Unavailable Unavailable Opolis, L Swathi DEAN OF BOYS Unavailable Unavailable Opolis, L Swathi DEAN OF BOYS Unavailable Unavailable Dario, L Swathi DEAN OF BOYS Unavailable Unavailable Dario, L Swathi DEAN OF BOYS Unavailable Unavailable Dario, L Swathi DEAN OF BOYS Unavailable Unavailable Opolis, L Swathi DEAN OF BOYS Unavailable Unavailable Opolis, L Swathi DEAN OF BOYS Unavailable Unavailable Dario, L Swathi DEAN OF BOYS Unavailable Unavailable Dario, L Swathi DEAN OF BOYS Unavailable Unavailable Opolis, L Swathi DEAN OF BOYS Unavailable Unavailable Opolis, L Swathi DEAN OF BOYS Unavailable Unavailable Opolis, L Swathi DEAN OF BOYS Unavailable Unavailable Dario, L Swathi DEAN OF BOYS Unavailable Unavailable Dario, L Swathi DEAN OF BOYS Unavailable Unavailable Opolis, L Swathi DEAN OF BOYS Unavailable Unavailable Dario, L Swathi DEAN OF BOYS Unavailable Unavailable PETROFF, TIGIST PA Unavailable Unavailable [...] PA-C Unavailable Unavailable MOSHE YOUSIF JR Unavailable [phone] MOSHE YOUSIF JR Unavailable [phone] MOSHE YOUSIF JR Unavailable [phone] JAROD PATEL MD Unavailable Unavailable JAROD PATEL [...] F Micha Unavailable Unavailable ZEGIL, D MARBELLA INSTRUCTIONAL SUPPORT SERVICES DIRECTOR Unavailable Unavailable ZEGIL, D MARBELLA INSTRUCTIONAL SUPPORT SERVICES DIRECTOR Unavailable Unavailable ZEGIL, D MARBELLA INSTRUCTIONAL SUPPORT SERVICES DIRECTOR Unavailable Unavailable Nevills, C Emma BARN HAND Unavailable Unavailable Nevills, C Emma BARN HAND Unavailable Unavailable Nevills, C Emma BARN HAND Unavailable Unavailable Nevills, C Emma BARN HAND Unavailable Unavailable Nevills, C Emma BARN HAND Unavailable Unavailable Nevills, C Emma BARN HAND Unavailable Unavailable Nevills, C Emma BARN HAND Unavailable Unavailable Nevills, C Emma BARN HAND Unavailable Unavailable Nevills, C Emma BARN HAND Unavailable Unavailable Nevills, C Emma BARN HAND Unavailable Unavailable Nevills, C Emma BARN HAND Unavailable Unavailable Nevills, C Emma BARN HAND Unavailable Unavailable Nevills, C Emma BARN HAND Unavailable Unavailable Nevills, C Emma BARN HAND Unavailable Unavailable Nevills, C Emma BARN HAND Unavailable Unavailable Nevills, C Emma BARN HAND Unavailable Unavailable Nevills, C Emma BARN HAND Unavailable Unavailable Nevills, C Emma BARN HAND Unavailable Unavailable Nevills, C Emma BARN HAND Unavailable Unavailable Nevills, C Emma BARN HAND Unavailable Unavailable Nevills, C Emma BARN HAND Unavailable Unavailable Nevills, C Emma BARN HAND Unavailable Unavailable Nevills, C Emma BARN HAND Unavailable Unavailable Nevills, C Emma BARN HAND Unavailable Unavailable Nevills, C Emma BARN HAND Unavailable Unavailable Nevills, C Emma BARN HAND Unavailable Unavailable Nevills, C Emma BARN HAND Unavailable Unavailable Nevills, C Emma BARN HAND Unavailable Unavailable Nevills, C Emma BARN HAND Unavailable Unavailable Nevills, C Emma BARN HAND Unavailable Unavailable Nevills, C Emma BARN HAND Unavailable Unavailable Nevills, C Emma BARN HAND Unavailable Unavailable Nevills, C Emma BARN HAND Unavailable Unavailable Nevills, C Emma BARN HAND Unavailable Unavailable Nevills, C Emma BARN HAND Unavailable Unavailable Sarthak, A Adina INSTRUCTIONAL SUPPORT SERVICES DIRECTOR Unavailable Unavailable Sarthak, A Adina INSTRUCTIONAL SUPPORT SERVICES DIRECTOR Unavailable Unavailable Sarthak, A Adina INSTRUCTIONAL SUPPORT SERVICES DIRECTOR Unavailable Unavailable Sarthak, A Adina INSTRUCTIONAL SUPPORT SERVICES DIRECTOR Unavailable Unavailable Sarthak, A Adina INSTRUCTIONAL SUPPORT SERVICES DIRECTOR Unavailable Unavailable Sarthak, A Adina INSTRUCTIONAL SUPPORT SERVICES DIRECTOR Unavailable Unavailable Sarthak, A Adina INSTRUCTIONAL SUPPORT SERVICES DIRECTOR Unavailable Unavailable Sarthak, A Adina INSTRUCTIONAL SUPPORT SERVICES DIRECTOR Unavailable Unavailable Sarthak, A Adina INSTRUCTIONAL SUPPORT SERVICES DIRECTOR Unavailable Unavailable Sarthak, A Adina INSTRUCTIONAL SUPPORT SERVICES DIRECTOR Unavailable Unavailable Sarthak, A Adina INSTRUCTIONAL SUPPORT SERVICES DIRECTOR Unavailable Unavailable Sarthak, A Adina INSTRUCTIONAL SUPPORT SERVICES DIRECTOR Unavailable Unavailable Sarthak, A Adina INSTRUCTIONAL SUPPORT SERVICES DIRECTOR Unavailable Unavailable Sarthak, A Adina INSTRUCTIONAL SUPPORT SERVICES DIRECTOR Unavailable Unavailable Sarthak, A Adina INSTRUCTIONAL SUPPORT SERVICES DIRECTOR Unavailable Unavailable Sarthak, A Adina INSTRUCTIONAL SUPPORT SERVICES DIRECTOR Unavailable Unavailable Sarthak, A Adina INSTRUCTIONAL SUPPORT SERVICES DIRECTOR Unavailable Unavailable Sarthak, A Adina INSTRUCTIONAL SUPPORT SERVICES DIRECTOR Unavailable Unavailable Sarthak, A Adina INSTRUCTIONAL SUPPORT SERVICES DIRECTOR Unavailable Unavailable Sarthak, A Adina INSTRUCTIONAL SUPPORT SERVICES DIRECTOR Unavailable Unavailable Sarthak, A Adina INSTRUCTIONAL SUPPORT SERVICES DIRECTOR Unavailable Unavailable Sarthak, A Adina INSTRUCTIONAL SUPPORT SERVICES DIRECTOR Unavailable Unavailable Sarthak, A Adina INSTRUCTIONAL SUPPORT SERVICES DIRECTOR Unavailable Unavailable Sarthak, A Adina INSTRUCTIONAL SUPPORT SERVICES DIRECTOR Unavailable Unavailable Sarthak, A Adina INSTRUCTIONAL SUPPORT SERVICES DIRECTOR Unavailable Unavailable Sarthak, A Adina INSTRUCTIONAL SUPPORT SERVICES DIRECTOR Unavailable Unavailable Sarthak, A Adina INSTRUCTIONAL SUPPORT SERVICES DIRECTOR Unavailable Unavailable Sarthak, A Adina INSTRUCTIONAL SUPPORT SERVICES DIRECTOR Unavailable Unavailable Sarthak, A Adina INSTRUCTIONAL SUPPORT SERVICES DIRECTOR Unavailable Unavailable Sarthak, A Adina INSTRUCTIONAL SUPPORT SERVICES DIRECTOR Unavailable Unavailable Sarthak, A Adina INSTRUCTIONAL SUPPORT SERVICES DIRECTOR Unavailable Unavailable Sarthak, A Adina INSTRUCTIONAL SUPPORT SERVICES DIRECTOR Unavailable Unavailable Sarthak, A Adina INSTRUCTIONAL SUPPORT SERVICES DIRECTOR Unavailable Unavailable Sarthak, A Adina INSTRUCTIONAL SUPPORT SERVICES DIRECTOR Unavailable Unavailable Sarthak, A Adina INSTRUCTIONAL SUPPORT SERVICES DIRECTOR Unavailable Unavailable Sarthak, A Adina INSTRUCTIONAL SUPPORT SERVICES DIRECTOR Unavailable Unavailable Sarthak, A Adina INSTRUCTIONAL SUPPORT SERVICES DIRECTOR Unavailable Unavailable Sarthak, A Adina INSTRUCTIONAL SUPPORT SERVICES DIRECTOR Unavailable Unavailable Sarthak, A Adina INSTRUCTIONAL SUPPORT SERVICES DIRECTOR Unavailable Unavailable Sarthak, A Adina INSTRUCTIONAL SUPPORT SERVICES DIRECTOR Unavailable Unavailable Sarthak, A Adina INSTRUCTIONAL SUPPORT SERVICES DIRECTOR Unavailable Unavailable Sarthak, A Adina INSTRUCTIONAL SUPPORT SERVICES DIRECTOR Unavailable Unavailable Sarthak, A Adina INSTRUCTIONAL SUPPORT SERVICES DIRECTOR Unavailable Unavailable Sarthak, A Adina INSTRUCTIONAL SUPPORT SERVICES DIRECTOR Unavailable Unavailable Sarthak, A Adina INSTRUCTIONAL SUPPORT SERVICES DIRECTOR Unavailable Unavailable Sarthak, A Adina INSTRUCTIONAL SUPPORT SERVICES DIRECTOR Unavailable Unavailable Sarthak, A Adina INSTRUCTIONAL SUPPORT SERVICES DIRECTOR Unavailable Unavailable Sarthak, A Adina INSTRUCTIONAL SUPPORT SERVICES DIRECTOR Unavailable Unavailable Sarthak, A Adina INSTRUCTIONAL SUPPORT SERVICES DIRECTOR Unavailable Unavailable Sarthak, A Adina INSTRUCTIONAL SUPPORT SERVICES DIRECTOR Unavailable Unavailable Sarthak, A Adina INSTRUCTIONAL SUPPORT SERVICES DIRECTOR Unavailable Unavailable Sarthak, A Adina INSTRUCTIONAL SUPPORT SERVICES DIRECTOR Unavailable Unavailable Sarthak, A Adina INSTRUCTIONAL SUPPORT SERVICES DIRECTOR Unavailable Unavailable Sarthak, A Adina INSTRUCTIONAL SUPPORT SERVICES DIRECTOR Unavailable Unavailable Sarthak, A Adina INSTRUCTIONAL SUPPORT SERVICES DIRECTOR Unavailable Unavailable Sarthak, A Adina INSTRUCTIONAL SUPPORT SERVICES DIRECTOR Unavailable Unavailable Franco, Marilyn Phyllis ANP-BC Unavailable [...] Unavailable Franco, Marilyn Phyllis ANP-BC Unavailable Unavailable Fracno, Marilyn Phyllis ANP-BC Unavailable Unavailable Franco, Marilyn Phyllis ANP-BC Unavailable Unavailable Franco, Marilyn Phyllis ANP-BC Unavailable Unavailable Franco, Marilyn Phyllis ANP-BC Unavailable Unavailable Franco, Marilyn Phyllis ANP-BC Unavailable Unavailable Franco, Marilyn Phyllis ANP-BC Unavailable Unavailable Franco, Marilyn Phyllis ANP-BC Unavailable Unavailable Franco, Marilyn Phyllis ANP-BC Unavailable Unavailable Franco, Mariyln Phyllis ANP-BC Unavailable Unavailable Franco, Marilyn Phyllis [...] is protected by Article 27-F of the [facility] Public Health law. If you continue you may have access to information: Regarding HIV / AIDS; Provided by facilities licensed or operated by the [facility] Office of Mental Health; or Provided by the [facility] Office for People With Developmental Disabilities. If such information is present, then the following [facility] mandated warning applies: This information has [...] law may result in a fine or prison sentence or both. A general authorization for the release of medical or other information is NOT sufficient authorization for further disc losure. Allergies and Adverse Reactions Type Description Substance Reaction Status Data Source(s ) Drug allergy Drug allergy Quinolones [facility] Drug allergy Drug allergy Sulfa (Sulfonamide Antibiotics) Rash I [facility] Family History Family Member Name Family Member Gender Family Member Status Date o f Status Description Data Source(s) Unknown Unknown Problem [facility]ENT ([facility]) Unknown Female Problem MED[facility] ([facility]) Unknown Female Problem MEDENT ([facility]) Encounters Encounter Providers Location Date Indications Data Source(s ) Preadmit Attender: Swathi KAMARA 06/23/2021 02:00:00 PM [facility] Outpatient Attender: Swathi KAMARA 06/14/2021 09:53:00 AM [facility] Outpatient [facility] 06/14/2021 12:00:00 AM EST eCW1 ([facility]) Emergency Attender: Jose Kinney MD ED-ED 05/23 11:29:00 AM EST - 06/10/2021 01:33:00 PM EST DIFFICULTY BREATHING [facility] DIFFICULTY BREATHING Patient discharged. Outpatient Attender: Michelle BARAJAS PA-C 06/09/2021 12: 00:00 AM [facility] Outpatient [facility] 06/08/2021 12:00:00 AM EST eCW1 ([facility]) Outpatient Attender: NICK FAROOQ 06/05/2021 12:00:00 AM [facility] Outpatient Attender: Emma Sequeira NP 04/17 09:46:00 AM EDT - 04/17/2021 09:46:00 AM EDT [facility] Outpatient Attender: Emma Sequeira NP 02/02 09:46:00 AM EDT - 02/02/2021 09:46:00 AM EDT [facility] Outpatient Attender: Emma Sequeira NP 01/17 09:36:00 AM EDT - 01/17/2021 09:36:00 AM EDT [facility] Emergency Attender: MARBELLA BLOCK [facility] ED-ED 07/2020 07:20:00 PM EDT - 12/20/2020 07:45:00 PM EDT PAIN FROM THROAT TO EAR LEFT SIDE [facility] PAIN FROM THROAT TO EAR LEFT SIDE Patient discharged. Outpatient Attender: Micha Goss 11/08/2020 12:00:00 AM [facility] Outpatient Attender: Phlylis PITTMAN 02/2021 02:03:00 PM EDT - 10/27/2020 02:03:00 PM EDT [facility] Emergency Attender: JAROD PATEL MD 07A-ERMADULT 10/12/2020 12:00:00 AM EDT - 10/12/2020 10:27:00 PM EDT Other acute postprocedural pain [facility] Other acute postprocedural pain Patient discharged. Outpatient Attender: Micha Goss 08/31/2020 12:00:00 AM [facility] Emergency Attender: MARBELLA BLOCK [facility] ED-ED 07/2019 08:23:00 PM EST - 06/21/2020 09:29:00 PM EST HARD TIME BREATHING [facility] HARD TIME BREATHING Patient discharged. Outpatient Attender: Phyllis PITTMAN 04/22 01:04:00 PM EDT - 05/16/2020 01:04:00 PM EDT [facility] Emergency Attender: SUKUMAR KAUFMANeferrer: Joseph [facility]ACA EMERGENCY ROOM-ER 12/01/2019 02:36:00 AM EDT - 12/01/2019 06:50:00 AM [facility] Patient discharged. Emergency Attender: LAURECNE KAUFMANeferrer: EDU BACA SR 04/02/2018 12:14:00 AM EDT - 04/02/2018 01:35:00 AM [facility] Emergency Attender: MOSHE YOUSIF JR Attender: MOSHE YOUSIF JRReferrer: Adina De León [facility] EMERGENCY ROOM-ER 03/15/2018 11:49:00 AM EDT - 03/15/2018 01:00:00 PM [facility] Emergency Attender: TIGIST KAUFMANeferrer: Jessy De León [facility] EMERGENCY ROOM-ER 11/08/2017 12:27:00 PM EDT - 11/08/2017 02:20:00 PM [facility] Outpatient Attender: Margaret Rivaserrer: Saba Denney [facility] 07/30/2012 02:51:00 PM EST [facility] Emergency Attender: LAURENCE FAROOQ EMERGENCY ROOM- ER 03/13/2012 02:04:00 PM EDT - 03/13/2012 06:15:00 PM [facility] Immunizations Vaccine Date Status Description Data Source(s) New in 2011. IIV4 06/14/2021 11:21:00 AM EST completed eCW1 ([facility]) New in 2011. IIV4 05/16/2020 01:38:00 PM EDT completed MEDENT ([facility]) Medications Medication Brand Name Start Date [...] Rail 02/02/2021 12:00:00 AM EDT active MEDENT ([facility]) hydrocortisone acetate 25 MG Rectal Suppository [Anucort-HC] Anucort-HC 02/02/2021 12:00:00 AM EDT active MEDENT ([facility]) 90 mcg/actuation 02/02/2021 12:00:00 AM EDT HFA aerosol inha ler 18 INHALE TWO PUFFS BY MOUTH EVERY 4 TO 6 HOURS NEEDED INHALE TWO PUFFS BY MOUTH EVERY 4 TO 6 HOURS NEEDED SOLD: 03/19/2021 Devang Alvarez Motorized Scooter 02/02/2021 12:00:00 AM EDT active MEDENT ([facility]) 90 mcg/actuation 02/02/2021 12:00:00 AM EDT HFA [...] NEEDED FOR MUSCLE SPASMS SOLD: 11/17/2020 [facility] 600 mg 11/16/2020 12:00:00 AM EDT [...] 10/27/2020 12:00:00 AM EDT ORAL active MEDENT ([facility]) 40 mg 10/18/2020 12:00:00 AM EDT capsule,delayed [...] Sat10/12/20 a t 2044, For [address] [facility] Medication administered onsite iohexol (OMNIPAQUE) 300 MG/ML contrast injection 100 mL 1776 10/12/2020 08:30:00 PM EDT 100 mL Given by IV completed 100 mL, Given by IV, 1 TIME IMAGING, 10/12/20 at 2030, For [address] [facility] Medication administered onsite 1 mg/2 mL [...] MOUTH EVERY DAY SOLD: 08/02/2020 [facility] 60 mg 08/02/2020 12:00:00 AM [...] DAILY NEEDED SOLD: 07/07/2020 [facility] 1,000 mg 07/06/2020 12:00:00 AM [...] 06/20/2020 12:00:00 AM EST ORAL active MEDENT ([facility] ) 0.1 % 06/05/2020 12:00:00 AM [...] mayers Policy Mayers Plan Information Medicaid S [id number] S [id number] Managed Care - Community Plan [facility] P [id number] S [id number] Medicaid S [id number] S [id number] Managed Care - Community Plan [facility] P [id number] S [id number] [facility] [id number] SP [id number] Medicaid S [id number] S [id number] UH I [id number] Self [id number] [place] 4 [place] [id number] S [id number] [facility] MEDICAID [id number] S [id number] UNHC COMMUNITY PLAN MCDHMO [id number] SP [id number] Medicaid S [id number] S [id number] Managed Care - [facility] Community Plan P [id number] S [id number] Managed Care - Community Plan [facility] P [id number] S [id number] Medicaid P [id number] S [id number] Managed Care - [facility] Community Plan P [id number] S [id number] Medicaid S [id number] S [id number] [facility] I [id number] Self [id number] [facility] Health Maintenance Organization (HMO) [id number] Self [id number] [facility] Health Maintenance Organization (HMO) [id number] Self [id number] Self Pay P UNAVAILABLE S UNAVAILA BLE Managed Care - Community Plan [facility] S [id number] S [id number] [facility](MCAID) O [id number] S [id number] ANS-Medicaid [id number] ANSI-Medicaid [id number] [place] 4 [place] [id number] S [id number] UNHC FBH [id number] S [id number] [facility] [place]/MCR Medigap Part B [id number] Self [id number] [facility] [place]/[facility] Health Maintenance Organization (HMO) [id number] Self [id number] [facility] [place]/MCR Medigap Part B [id number] Self [id number] UNHC COMMUNITY PLAN MCDHMO [id number] SP [id number] NCO EPA [id number] SP [id number] MED[place]ID [place] [id number] SP [id number] MEDICAID [id number] SP [id number] A [facility]-Community Plan-[facility] Commercial [id number] Self [id number] UNHC COMMUNITY PLAN MCDHMO [id number] SP [id number] UNHC COMMUNITY PLAN MCDHMO [id number] SP [id number] [facility](MCAID) O [id number] S [id number] [facility] [place]/MCR Medigap Part B [id number] Self [facility] [place]/[facility]CR Health Maintenance Organization (HMO) [id number] Self [facility] Community Plan Commercial [id number] Self [facility](MCAID) O [id number] S [id number] MEDICAID [id number] SP [id number] UNHC COMMUNITY PLAN MCDHMO [id number] SP [id number] MEDICAID [id number] SP [id number] MEDICAID [id number] SP [id number] [facility] [place] [id number] [facility] [place] [id number] HU [id number] [facility] [id number] [id number] [facility] [place] [id number] SP [id number] ACTIVE DUTY [id number] HU [id number] [facility] [id number] [facility] [id number] SP [id number] [facility] UNHC COMMUNITY PLAN MCDO [id number] SP [id number] MEDICAID -O/[id number] [facility] MEDICAID [id number] S [id number] [facility] MEDICAID [id number] S [id number] MEDICAID [id number] MEDICAID [id number] S [id number] [facility] [id number] S [id number] [facility] [id number] Unknown [id number] [facility] COMMUNTY PLAN [id number] 18 [id number] UNHC COMMUNITY PLAN XIX [id number] 18 [id number] UNHC COMMUNITY PLAN MCDO [id number] SP [id number] [facility](MCAID) O [id number] S [id number] EMEDNY [id number] SP [id number] MVP MCDO [id number] SP [id number] MVP [facility] [id number] S [id number] MEDICAID [id number] S [id number] MEDICAID [id number] SP [id number] SELF PAY ONLY [id number] SP [id number] Problems, Conditions, and Diagnoses Code Display Name Description Problem Type Effective Dates Data Source(s) I73.9 Peripheral vascular disease, unspecified PERIPHERAL VASCULAR DISEASE, UNSPECIFIED Diagnosis 06/23/2021 02:00:00 PM EST [facility] [id number] Other group home (current) drug therapy 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 Diagnosis 01/17/2021 09:36:00 AM EDT [facility] K219 Gastro-esophageal reflux disease without esophagitis Gastro-esophageal reflux disease without esophagitis Diagnosis 01/17/2021 09:36:00 AM ED T [facility] E7800 Pure hypercholesterolemia, unspecified P ure hypercholesterolemia, unspecified Diagnosis 01/17/2021 09:36:00 AM EDT [facility] E1165 Type 2 diabetes mellitus with hyperglyce lorin Type 2 diabetes mellitus with hyperglycemia Diagnosis 01/17/2021 09:36:00 AM EDT [facility] E039 Hypothyroidism, unspecified Hypothyroidism, unspecifie d Diagnosis 01/17/2021 09:36:00 AM EDT [facility] F331 Major depressive disorder, recurrent, mo derate Major depressive disorder, recurrent, moderate Diagnosis 01/17/2021 09:36:00 AM EDT [facility] F419 Anxiety disorder, unspecified Anxiety disorder, unspec ified Diagnosis 01/17/2021 09:36:00 AM EDT [facility] 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 Diagnosis 01/17/2021 09:36:00 AM EDT [facility] J449 Chronic obstructive pulmonary disease, u nspecified Chronic obstructive pulmonary disease, unspecified Diagnosis 01/17/2021 09:36:00 AM EDT [facility] R2242 Localized swelling, mass and lump, left lower limb Localized swelling, mass and lump, left lower limb Diagnosis 01/17/2021 09:36:00 AM EDT [facility] I219 Acute myocardial infarction, unspecified Acute myocardial infarction, unspecified Diagnosis 01/17/2021 09:36:00 AM EDT [facility] Z51.89 Encounter for other specified aftercare Encounter for other specified aftercare Diagnosis 10/12/2020 05:18:00 PM EDT [facility] G89.18 Other acute postprocedural pain Other acute post procedural pain Diagnosis 10/12/2020 05:18:[address] [facility] stoma bleeding heavily, not healing stoma bleedi ng heavily, not healing Diagnosis 10/12/2020 05:18:[address] [facility] stoma bleeding heavily stoma bleeding heavily Diagnosi s 10/12/2020 04:51:[address] [facility] E66.9 [id number] Obesity (BMI 30-39.9) Problem 06/27/2021 12: 00:00 AM EST eCW1 ([facility]) Z68.38 [id number] BMI 38.0-38.9,adult Problem 06/27/2021 12:00 :00 AM EST eCW1 ([facility]) J44.9 [id number] Chronic obstructive pulmonary di sease, unspecified COPD type Problem 06/14/2021 12:00:00 AM EST eCW1 ([facility]) R13.10 [id number] Difficulty swallowing solids Problem 06/14/2021 12:00:00 AM EST eCW1 ([facility]) E78.2 Mixed hyperlipidemia Mixed hyperlipidemia Problem 06/14/2021 12:00:00 AM EST eCW1 ([facility]) F17.200 [id number] Smoker Problem 06/14/2021 12:00:00 AM ES T eCW1 ([facility]) Z92.3 [id number] History of radiation therapy Problem 021 12:00:00 AM EST eCW1 ([facility]) I73.9 [id number] Peripheral arterial disease Problem 06/14/20 21 12:00:00 AM EST eCW1 ([facility]) Z85.21 [id number] History of primary laryngeal cancer Prob andrew 06/14/2021 12:00:00 AM EST eCW1 ([facility]) 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 Problem 06/14/2021 12:00:00 AM EST eCW1 ([facility]) Z90.02 [id number] History of laryngectomy Problem 06/14/2021 1 2:00:00 AM EST eCW1 ([facility]) Z82.5 Family history of asthma Family history of asthma Prob andrew 05/25/2020 12:00:00 AM EST MEDENT ([facility]) Z82.61 FH: Arthritis FH: Arthritis Problem 05/25/2020 12:00:00 AM EST [facility] ([facility]) K62.5 Hemorrhage of rectum and anus Hemorrhage of rectum and anus Problem 05/25/2020 12:00:00 AM EST [facility] ([facility]) I63.9 Cerebral artery occlusion Cerebral artery occlusion Pr oblem 05/25/2020 12:00:00 AM EST [facility] ([facility]) E78.00 Pure hypercholesterolemia Pure hypercholesterolemia Pr oblem 05/25/2020 12:00:00 AM EST [facility] ([facility]) E11.65 Type II diabetes mellitus uncontrolled T ype II diabetes mellitus uncontrolled Problem 05/25/2020 12:00:00 AM EST [facility] ([facility]) F33.1 Moderate recurrent major depression Moderate rec urrent major depression Problem 05/25/2020 12:00:00 AM EST [facility] ([facility]) Z80.2 Family history of malignant neoplasm of thoracic cavity structure Family history of malignant neoplasm of thoracic cavity structure Problem 05/25/2020 12:00:00 AM EST [facility] ([facility]) Z83.49 Family history of endocrine disorders Fa kenneth history of endocrine disorders Problem 05/25/2020 12:00:00 AM EST [facility] ([facility]) Z83.42 Family history of familial hypercholeste rolemia Family history of familial hypercholesterolemia Problem 05/25/2020 12:00:00 AM EST [facility] ([facility]) Z82.49 Family history of ischemic h eart disease and other diseases of the circulatory system Family history of ischemic heart disease and other diseases of the circulatory system Problem 05/25/2020 12:00:00 AM EST [facility] ([facility]) Z83.3 Family history of diabetes mellitus Family histo ry of diabetes mellitus Problem 05/25/2020 12:00:00 AM EST [facility] ([facility]) Z81.8 Mental disorder Mental disorder Problem 05/25/2020 12:0 0:00 AM EST [facility] ([facility]) Surgeries/Procedures Procedure Description Date Indications Data Source(s) OFFICE OUTPATIENT VISIT 15 MINUTES 04/17/2021 12:00:00 AM EDT [facility] ([facility]) OFFICE OUTPATIENT VISIT 25 MINUTES 02/02/2021 12:00:00 AM EDT [facility] ([facility]) OFFICE OUTPATIENT VISIT 15 MINUTES 01/17/2021 12:00:00 AM EDT [facility] ([facility]) OFFICE OUTPATIENT VISIT 25 MINUTES 10/27/2020 12:00:00 AM EDT [facility] ([facility]) CT SOFT TISSUE NECK W/CONTRAST MATERIAL <td>CT SOFT TI SSUE NECK WITH CONTRAST [id number]</td><td>STAT</td><td>10/12/2020 8:28 PM EDT</td><td></td><td> </td> 10/12/2020 08:28:[address] [facility] XR CHEST FRONTAL AND LATERAL [id number] <td>XR CHEST FRONTA L AND LATERAL 40727</td><td>STAT</td><td>10/12/2020 7:58 PM EDT</td><td></td><td> </td> 10/12/2020 07:58:36 PM [facility] BLOOD COUNT COMPLETE AUTO&AUTO DIFRNTL WBC COUNT <td>C BC AND DIFFERENTIAL</td><td>Routine</td><td>10/12/2020 7:37 PM EDT</td><td></td><td> </td> 10/12/2020 07:37:00 PM [facility] PROTHROMBIN TIME <td>PROTIME INR</td><td>STAT </td><td>10/12/2020 6:48 PM EDT</td><td></td><td> </td> 10/12/2020 06:48:00 PM [facility] BLOOD COUNT COMPLETE AUTO&AUTO DIFRNTL WBC COUNT <td>C BC AND DIFFERENTIAL</td><td>Routine</td><td>10/12/2020 6:48 PM EDT</td><td></td><td> </td> 10/12/2020 06:48:00 PM [facility] COMPREHENSIVE METABOLIC PANEL <td>COMPREHENSIVE METABO LIC PANEL</td><td>STAT</td><td>10/12/2020 6:48 PM EDT</td><td></td><td> </td> 10/12/2020 06:48:00 PM [facility] Brief Emotional/Behav Assessment W/ Scoring Doc Per Standard Inst 05/16/2020 12:00:[address] [facility]) Admin Patient Focused Health Risk Assessment Instrument 05/16/2020 12:00:00 AM EDT [facility] ([facility]) Results ID Date Data Source [id number] 06/10/2021 12:56:00 PM [facility] Collected By: Nurse Initials: af Time Collected: 1243 Collected By: Nurse Initials: af Time Collected: 124 Name Value Range Interpretation Code Description Data Elizabeth rce(s) Supporting Document(s) Color,Urine Colorl-Dk Y Normal (applies to non-numeric res ults) [facility] Clarity,Urine Clear Normal (applies to non-numeric re sults) [facility] Specific [place],Urine 1.005-1.030 Normal (applies to non- numeric results) [facility] pH,Urine 5.0-8.0 Normal (applies to non-numeric resul ts) [facility] Protein,Urine Negative [facility] Glucose,Urine Negative [facility] Ketones,Urine Negative Normal (applies to non-numeric re sults) [facility] Blood,Urine Negative Normal (applies to non-numeric resu lts) [facility] Bilirubin,Urine Negative Normal (applies to non-numeric results) [facility] Urobilinogen,Urine 0.2-1.0 Normal (applies to non-numer ic results) [facility] Leukocyte Esterase,Urine Negative Normal (applies to non -numeric results) [facility] Nitrite,Urine Negative Normal (applies to non-numeric re sults) [facility] ID Date Data Source [id number] 06/10/2021 12:56:00 PM [facility] Collected By: Nurse Initials: af Time Collected: 1242 Collected By: Nurse Initials: af Time Collected: 1242 Name Value Range Interpretation Code Description Data Elizabeth rce(s) Supporting Document(s) RBC,Urine None Seen [facility] WBC,Urine None Seen [facility] Casts,Urine None Seen Normal (applies to non-numeric resu lts) [facility] Squamous Cells,Urine None Seen [facility] Bacteria,Urine None Seen [facility] ID Date Data Source [id number] 06/10/2021 12:00:00 PM EST [facility] Name Value Range Interpretation Code Description Data Elizabeth rce(s) Supporting Document(s) Respiratory specimen severe acute respir atory syndrome coronavirus 2 (SARS-CoV-2) RNA Negative (qualifier value) [facility] and reported by . ID Date Data Source [id number] 06/10/2021 12:19:00 PM EST [facility] Name Value Range Interpretation Code Description Data Elizabeth rce(s) Supporting Document(s) SARS-CoV-2 RNA Negative Normal (applies to non-numeric r esults) [facility] Negative results should be treated as pr [...] Certificate of Accreditation. Factsheets for healthcare providers: https://www.fda.gov/media/507386/download Factsheets for patients: https://www.fda.gov/media/347925/download The ID NOW Instrument is a rapid molecular in vitro diagnostic test utilizing an isothermal nucleic acid amplification technology intended for the qualitative detection of nucleic acid from the SARS-CoV-2 viral RNA. THIS IS A STATE REPORTABLE COMMUNICABLE DISEASE. Manual entry verified by Crystal Acevedo 06/10/21 1218 ID Date Data Source [id number] 06/12/2021 07:45:00 AM [facility] Imaging Services Department Imaging Report [address], [place] [address] %(RAD)RES..mtdd.print.filter("line") Name: ESSENCE AGUERO : 1980 Age/Sex: 40F Ordering Provider: Jose Kinney MD Med Rec #: [id number] Reg Status: [facility] ER Room #: Date of Service: 06/10/21 Report Number: [id number] cc:PCP None Send Report To: [id number] CT/CT Chest No Contrast Reason for exam: [...] 06/10/21 1252 Transcribed Date/Time: 06/12/21 07 45 Automatic Grinding Machine Operator: NANCIE Name Value Range Interpretation Code Description Data Elizabeth rce(s) Supporting Document(s) ID Date Data Source [id number] 06/12/2021 07:38:00 AM [facility] Imaging Services Department Imaging Report [address], [place] [address] %(RAD)RES..mtdd.print.filter("line") Name: ESSENCE AGUERO : 1980 Age/Sex: 40F Ordering Provider: Jose Kinney MD Med Rec #: [id number] Reg Status: [facility] Room #: Date of Service: 06/10/21 Report Number: [id number] cc:PCP None Send Report To: [id number] CT/CT Neck Soft Tissue No Contras Reason [...] Date/Time: 06/11/21 1252 Transcribed Date/Time: 06/12/21 0738 Automatic Grinding Machine Operator: NANCIE Name Value Range Interpretation Code Description Data Elizabeth rce(s) Supporting Document(s) ID Date Data Source [id number] 06/10/2021 12:21:00 PM EST [facility] Name Value Range Interpretation Code Description Data Elizabeth rce(s) Supporting Document(s) B-Type Natriuretic Peptide BNP <125 Normal (applies to non-numeric results) [facility] Results of this test should always be us ed in conjunction with the patients medical history, clinical presentation, and other findings. ID Date Data Source [id number] 06/10/2021 12:16:00 PM EST [facility] Name Value Range Interpretation Code Description Data Elizabeth rce(s) Supporting Document(s) Sodium 129 mmol/L 136-145 Below low normal [facility] ospital Potassium 3.5-5.1 Normal (applies to non-numeric resul ts) [facility] Chloride 88 mmol/L 98-107 Below low normal [facility] spital Carbon Dioxide CO2 21-32 Normal (applies to non-numer ic results) [facility] Anion Gap 5.0-16.0 Normal (applies to non-numeric resul ts) [facility] BUN 6 mg/dL 7-18 Below low normal [facility] spital Creatinine,Serum 0.7-1.2 Normal (applies to non-numeric results) [facility] GFR >60 Normal (applies to non-numeric results) [facility] Glucose Level 350 mg/dL 60-99 Above high normal [facility] Reference range is only applicable when patient is fasting Note the following drug interference: Sulfasalazine Sulfapyridine Can see falsely depressed Can see falsely elevated result with up to 17% results with up to 11% decrease in measurement increase in measurement Recommend patients be collected for this test prior to administration of either drug. Calcium 8.5-10.1 Normal (applies to non-numeric resul ts) [facility] Bilirubin,Total 0.1-1.9 Normal (applies to non-numeric results) [facility] SGOT(AST) 21 U/L 15-37 Normal (applies to non-numeric resul ts) [facility] Note the following drug interference: Sulfasalazine Sulfapyridine Can see falsely depressed Can see falsely elevated result with up to 10% results with up to 10% decrease in measurement increase in measurement Recommend patients be collected for this test prior to administration of either drug. SGPT(ALT) 23 U/L 12-78 Normal (applies to non-numeric resul ts) [facility] Note the following drug interference: Sulfasalazine Sulfapyridine Can see falsely depressed Can see falsely elevated result with up to 29% results with up to 10% decrease in measurement increase in measurement Recommend patients be collected for this test prior to administration of either drug. Alkaline Phosphatase 146 U/L 38-126 Above high normal [facility] can increase Alkaline Phosp le vels up to 2 times the normal adult value. Normal values for children and adolescents are 2 to 3 times the normal adult value. Total Protein 6.0-8.2 Above high normal [facility] Albumin Level 3.4-5.0 Normal (applies to non-numeric re sults) [facility] ID Date Data Source [id number] 06/10/2021 12:16:00 PM [facility] Name Value Range Interpretation Code Description Data Elizabeth rce(s) Supporting Document(s) Troponin I 0.000-0.056 Normal (applies to non-numeric resu lts) [facility] ID Date Data Source [id number] 06/10/2021 12:15:00 PM [facility] Name Value Range Interpretation Code Description Data Elizabeth rce(s) Supporting Document(s) D-Dimer,Quant 0.19-0.50 Normal (applies to non-numeric [facility]) [facility] The negative predictive value for DVT or [...] on anticoagulant therapy. ID Date Data Source [id number] 06/10/2021 11:56:00 AM [facility] Name Value Range Interpretation Code Description Data Elizabeth rce(s) Supporting Document(s) White Blood Count 3.5-10.5 Above high normal [facility] Red Blood Count 3.90-5.00 Above high normal [facility] Hemoglobin 12.0-15.5 Normal (applies to non-numeric resul ts) [facility] Hematocrit 34.9-44.5 Above high normal [facility] Mean Corpuscular Volume 81.2-95.1 Normal (applies to non- numeric results) [facility] Mean Corpuscular Hgb 25.6-32.2 Normal (applies to non-num sukumar results) [facility] Mean Corpuscular Hgb Conc 32.0-36.0 Normal (applies to no n-numeric results) [facility] Red Cell Distribution Width 11.9-15.5 Normal (appli es to non-numeric results) [facility] Platelet Count 389 x10 3/uL 150-450 Normal (applies to non-numeric results) [facility] Mean Platelet Volume 9.4-12.4 Normal (applies to non-num sukumar results) [facility] Neutrophils% (Auto) 31.0-71.0 Normal (applies to non-nume brianne results) [facility] Lymphocytes% (Auto) 20.0-55.0 Normal (applies to non-nume brianne results) [facility] Monocytes% (Auto) 4.0-12.0 Normal (applies to non-numeri c results) [facility] Eosinophils% (Auto) 1.0-8.0 Normal (applies to non-nume brianne results) [facility] Basophils% (Auto) 0.0-2.0 Normal (applies to non-numeri c results) [facility] Immature Granulocytes% (Auto) 0.0-2.0 Normal (pavithra lies to non-numeric results) [facility] Neutrophils# (Auto) 1.50-6.20 Above high normal [facility] Lymphocytes# (Auto) 1.20-4.00 Normal (applies to non-nume brianne results) [facility] Monocytes# (Auto) 0.00-0.90 Above high normal [facility] Eosinophils# (Auto) 0.00-0.50 Normal (applies to non-nume brianne results) [facility] Basophils# (Auto) 0.00-0.20 Normal (applies to non-numeri c results) [facility] Immature Granulocytes# (Auto) 0.00-7.00 No rmal (applies to non-numeric results) [facility] ID Date Data Source [id number] 02/02/2021 10:27:00 AM EDT [facility] ([facility]) Name Value Range Interpretation Code Description Data Elizabeth rce(s) Supporting Document(s) Calcidiol [Mass/volume] in Serum or Plasma 11 ng/mL [facility] ([facility]) Is patient fasting? Y Magnesium [Mass/volume] in Serum or Plasma 1.7 mg/dL 1.7-2.2 [facility] ([facility]) Is patient fasting? Y Thyroxine (T4) free [Mass/volume] in Serum or Plasma 0.60 ng/dL 0.93-1.70 Below low normal [facility] ([facility]) Is patient fasting? Y Thyrotropin [Units/volume] in Serum or Plasma 6.52 uIU/mL 0. 47-5.01 Above high normal [facility] ([facility]) Is patient fasting? Y ID Date Data Source [id number] 02/02/2021 10:27:00 AM EDT [facility] ([facility]) Name Value Range Interpretation Code Description Data Elizabeth rce(s) Supporting Document(s) Cholesterol 196 mg/dL 131-200 [facility] ([facility]) Is patient fasting? Y Cve Panel Laboratory test result [facility] ([facility]) Is patient fasting? Y Triglycerides 568 mg/dL 35-160 Above high normal [facility] ([facility]) Is patient fasting? Y HDL 28 mg/dL 29-86 Below low normal [facility] ([facility]) Is patient fasting? Y LDL 92 mg/dL 65-175 [facility] ([facility]) Is patient fasting? Y LDL/HDL 3.29 1.47-3.22 Above high normal [facility] ([facility]) Is patient fasting? Y Risk Factor 7.0 3.2-4.4 Above high normal [facility] ([facility]) Is patient fasting? Y ID Date Data Source [id number] 02/02/2021 10:27:00 AM EDT [facility] ([facility]) Name Value Range Interpretation Code Description Data Elizabeth rce(s) Supporting Document(s) Hemoglobin A1c/Hemoglobin.total in Blood 9.1 % 4.4-6.1 Above high normal [facility] ([facility]) Is patient fasting? Y ID Date Data Source [id number] 02/02/2021 10:27:00 AM EDT [facility] ([facility]) Name Value Range Interpretation Code Description Data Elizabeth rce(s) Supporting Document(s) Comprehensive Metabo Laboratory test result [facility] ([facility]) Is patient fasting? Y Chloride 93 meq/L 98-107 Below low normal [facility] ( [facility]) Is patient fasting? Y Potassium 4.7 meq/L 3.6-5.0 [facility] ([facility]) Is patient fasting? Y Sodium 133 meq/L 134-153 Below low normal [facility] ( [facility]) Is patient fasting? Y BUN 5 mg/dL 7-21 Below low normal [facility] ([facility]) Is patient fasting? Y Co2 29 meq/L 22-30 [facility] ([facility]) Is patient fasting? Y Glucose 200 mg/dL 70-99 Above high normal [facility] ([facility]) Is patient fasting? Y Creatinine 0.6 mg/dL 0.7-1.5 Below low normal [facility] ( [facility]) Is patient fasting? Y BUN/Creat 8 8-27 [facility] ([facility]) Is patient fasting? Y Total Protein 7.6 g/dL 6.3-8.2 [facility] ([facility]) Is patient fasting? Y Albumin 4.6 g/dL 3.9-5.0 [facility] ([facility]) Is patient fasting? Y Globulin 3.0 GM/DL 2.4-3.2 [facility] ([facility]) Is patient fasting? Y A/G Ratio 1.5 0.8-2.0 [facility] ([facility]) Is patient fasting? Y Total Bili Laboratory test result 0.2-1.3 ME [facility] ([facility]) Is patient fasting? Y Alkaline Phos 116 U/L 38-126 [facility] ([facility]) Is patient fasting? Y Calcium 9.5 mg/dL 8.4-10.2 [facility] ([facility]) Is patient fasting? Y Sgot/Ast 24 U/L 5-40 [facility] ([facility]) Is patient fasting? Y SGPT/Alt 17 U/L 7-56 [facility] ([facility]) Is patient fasting? Y Anion Gap 11.0 mmol/L 8.0-16.0 [facility] ([facility]) Is patient fasting? Y Age 40 yrs [facility] ([facility]) Is patient fasting? Y Non-Aa GFR Laboratory test result [facility] ([facility]) Is patient fasting? Y Afr Amer GFR Laboratory test result [facility] ([facility]) Is patient fasting? Y ID Date Data Source [id number] 02/02/2021 10:27:00 AM EDT [facility] ([facility]) Name Value Range Interpretation Code Description Data Elizabeth rce(s) Supporting Document(s) CBC W/Automated Diff Laboratory test result [facility] ([facility]) Is patient fasting? Y WBC 10.6 10^3/uL 4.2-11.0 [facility] ([facility]) Is patient fasting? Y RBC 5.63 10^6/uL 4.20-5.40 Above high normal [facility] T ([facility]) Is patient fasting? Y Hemoglobin 15.9 g/dL 12.0-16.0 [facility] ([facility]) Is patient fasting? Y Hematocrit 49.7 % 37.0-47.0 Above high normal [facility] ([facility]) Is patient fasting? Y MCH 28.2 pg 27.0-34.0 [facility] ([facility]) Is patient fasting? Y MCV 88.3 fL 81.0-101 [facility] ([facility]) Is patient fasting? Y MCHC 32.0 g/dL 31.0-36.0 [facility] ([facility]) Is patient fasting? Y Platelets 397 10^3/uL 150-450 [facility] ([facility]) Is patient fasting? Y RDW 13.2 % 11.5-14.5 [facility] ([facility]) Is patient fasting? Y Neut 59.3 % 37.0-80.0 [facility] ([facility]) Is patient fasting? Y Lymph 28.9 % 25.0-40.0 [facility] ([facility]) Is patient fasting? Y MPV 10.1 fL 7.4-10.4 [facility] ([facility]) Is patient fasting? Y Eos 2.7 % 0.0-7.0 [facility] ([facility]) Is patient fasting? Y [place] 8.1 % 3.0-8.0 Above high normal [facility] ([facility]) Is patient fasting? Y Baso 0.7 % 0.0-2.5 [facility] ([facility]) Is patient fasting? Y %NRBC 0.0 % 0.0-0.0 [facility] ([facility]) Is patient fasting? Y #Neut 6.27 10^3/uL 2.00-6.90 [facility] ([facility]) Is patient fasting? Y %Ig 0.3 % 0.0-0.0 Above high normal [facility] ([facility]) Is patient fasting? Y #[place] 0.86 10^3/uL 0.00-0.90 [facility] ([facility]) Is patient fasting? Y #Lymph 3.05 10^3/uL 0.60-3.40 [facility] ([facility]) Is patient fasting? Y #Baso 0.07 10^3/uL 0.00-0.20 [facility] ([facility]) Is patient fasting? Y #Eos 0.29 10^3/uL 0.00-0.70 [facility] ([facility]) Is patient fasting? Y #NRBC 0.00 10^3/uL 0.00-0.00 [facility] ([facility]) Is patient fasting? Y #Ig 0.03 10^3/uL 0.00-0.10 [facility] ([facility]) Is patient fasting? Y Manual Diff Laboratory test result M [facility] ([facility]) Is patient fasting? Y RBC Morph Laboratory test result [facility] ([facility]) Is patient fasting? Y ID Date Data Source [id number] 02/03/2021 08:27:00 AM EDT [facility] Name Value Range Interpretation Code Description Data Elizabeth rce(s) Supporting Document(s) Calcidiol [Moles/volume] in Serum or Plasma 11 NG/ML [facility] VITAMIN-D(2 5HYDROXY) Deficiency: <=20 ng/ml Insufficiency: 21-29 ng/ml Preferred level: => 30 ng/ml ID Date Data Source [id number] 02/02/2021 05:56:00 PM EDT [facility] Value Range Interpretation Code Description Data Elizabeth rce(s) Supporting Document(s) Thyroxine (T4) free index in Serum or Plasma by calculation 0.60 NG/DL 0.93 - 1.70 L [facility] ID Date Data Source [id number] 02/02/2021 05:56:00 PM EDT [facility] Value Range Interpretation Code Description Data Elizabeth rce(s) Supporting Document(s) Thyrotropin [Units/volume] in Serum or Plasma by Detec tion limit <= 0.05 mIU/L 6.52 uIU/mL 0.47 - 5.01 H [facility] ID Date Data Source [id number] 02/02/2021 05:49:00 PM EDT [facility] Value Range Interpretation Code Description Data Elizabeth rce(s) Supporting Document(s) Hemoglobin A1c/Hemoglobin.total in Blood 9.1 % 4.4 - 6.1 H [facility] {A1]{HB] ID Date Data Source [id number] 02/02/2021 05:38:00 PM EDT [facility] Value Range Interpretation Code Description Data Elizabeth rce(s) Supporting Document(s) [facility] Cholesterol [Mass/volume] in Serum or Plasma 196 MG/DL 131 - 200 [facility] Deprecated Triglyceride [Mass/volume] in Serum or Plasma 568 MG/DL 3 5 - 160 H [facility] HDL 28 MG/DL 29 - [address] [facility] al Cholesterol in LDL [Mass/volume] in Serum or Plasma by Direc t assay 92 mg/dL 65 - 175 [facility] Cholesterol.total/Cholesterol in HDL [Mass Ratio] in Serum o r Plasma 7.0 3.2 - 4.4 H [facility] LDL/HDL 3.29 1.47 - 3.22 H [facility] ital CVE RISK CHOL/HDL LDL/HDLMEN: 1/2 AVERAGE 3.43 1.00 AVERAGE 4.97 3.55 2X AVERAGE 9.55 6.25 3X AVERAGE 23.99 7.99WOMEN: 1/2 AVERAGE 3.27 1.47 AVERAGE 4.44 3.22 2X AVERAGE 7.05 5.03 3X AVERAGE 11.04 6.14 ID Date Data Source [id number] 02/02/2021 05:38:00 PM EDT [facility] Name Value Range Interpretation Code Description Data Elizabeth rce(s) Supporting Document(s) COMPREHENSIVE METABOLIC PANEL [facility] COMPREHENSIVE METABOLIC PANEL Sodium [Moles/volume] in Serum or Plasma 133 mEq/L 134 - 153 L [facility] Potassium [Moles/volume] in Serum or Plasma 4.7 mEq/L 3.6 - 5.0 [facility] Chloride [Moles/volume] in Serum or Plasma 93 mEq/L 98 - 107 L [facility] Carbon dioxide, total [Moles/volume] in Serum or Plasma 29 MEQ/L 22 - 30 [facility] Glucose [Mass/volume] in Serum or Plasma 200 MG/DL 70 - 99 H [facility] BUN 5 MG/DL 7 - [address] [facility] al Creatinine [Mass/volume] in Serum or Plasma 0.6 MG/DL 0.7 - 1.5 L [facility] BUN/CREAT 8 8 - 27 [facility] al Protein [Mass/volume] in Serum or Plasma 7.6 G/DL 6.3 - 8.2 [facility] Albumin [Mass/volume] in Serum or Plasma 4.6 G/DL 3.9 - 5.0 [facility] Globulin [Mass/volume] in Serum by calculation 3.0 GM/DL 2.4 - 3.2 [facility] A/G RATIO 1.5 0.8 - 2.0 [facility] Calcium [Mass/volume] in Serum or Plasma 9.5 MG/DL 8.4 - 10.2 [facility] Bilirubin.total [Mass/volume] in Serum or Plasma <0.7 MG/DL 0.2 - 1.3 [facility] Alkaline phosphatase [Enzymatic activity/volume] in Serum or Plasma 116 U/L 38 - 126 [facility] Aspartate aminotransferase [Enzymatic activity/volume] in Serum or Plasma 24 U/L 5 - 40 [facility] Alanine aminotransferase [Enzymatic activity/volume] in Seru m or Plasma 17 U/L 7 - 56 [facility] Anion gap 3 in Serum or Plasma 11.0 mmol/L 8.0 - 16.0 [facility] AGE 40 yrs [facility] al NON-AA GFR >60 mL/min [facility] ital AFR AMER GFR >60 mL/min [facility] [place] [facility] Male GFR In terprentation 20-49 [...] >32 mL/min Normal ID Date Data Source [id number] 02/02/2021 05:35:00 PM EDT [facility] Name Value Range Interpretation Code Description Data Elizabeth rce(s) Supporting Document(s) Magnesium [Mass/volume] in Serum or Plasma 1.7 MG/DL 1.7 - 2.2 [facility] ID Date Data Source [id number] 02/02/2021 05:13:00 PM EDT [facility] Name Value Range Interpretation Code Description Data Elizabeth rce(s) Supporting Document(s) CBC W/AUTOMATED DIFF [facility] COMPLETE BLOOD COUNT Leukocytes [#/volume] in Blood by Automated count 10.6 10^3/uL 4.2 - 11.0 [facility] Erythrocytes [#/volume] in Blood by Automated count 5.63 10^6/uL 4. 20 - 5.40 H [facility] Hemoglobin [Mass/volume] in Blood 15.9 g/dL 12.0 - 16.0 [facility] Hematocrit [Volume Fraction] of Blood by Automated count 49.7 % 3 7.0 - 47.0 H [facility] Erythrocyte mean corpuscular volume [Entitic volume] by Auto mated count 88.3 fL 81.0 - 101 [facility] Erythrocyte mean corpuscular hemoglobin [Entitic mass] by Automated count 28.2 pg 27.0 - 34.0 [facility] Erythrocyte mean corpuscular hemoglobin concentration [Mass/volume] by Automated count 32.0 g/dL 31.0 - 36.0 [facility] Erythrocyte distribution width [Ratio] by Automated count 13.2 % 11.5 - 14.5 [facility] Platelets [#/volume] in Blood by Automated count 397 10^3/uL 150 - 45 0 [facility] Platelet mean volume [Entitic volume] in Blood by Automated count 10.1 fL 7.4 - 10.4 [facility] Neutrophils/100 leukocytes in Blood by Automated count 59.3 % 37. 0 - 80.0 [facility] Lymphocytes/100 leukocytes in Blood by Manual count 28.9 % 25.0 - 40.0 [facility] Monocytes/100 leukocytes in Blood by Automated count 8.1 % 3.0 - 8.0 H [facility] Eosinophils/100 leukocytes in Blood by Automated count 2.7 % 0.0 - 7.0 [facility] Basophils/100 leukocytes in Blood by Automated count 0.7 % 0.0 - 2.5 [facility] %IG 0.3 % 0.0 - 0.0 [facility] 0.0 % 0.0 - 0.0 [facility] al Neutrophils [#/volume] in Blood by Automated count 6.27 10^3/uL 2.00 - 6.90 [facility] Lymphocytes [#/volume] in Blood by Automated count 3.05 10^3/uL 0.60 - 3.40 [facility] Monocytes [#/volume] in Blood by Automated count 0.86 10^3/uL 0.00 - 0.90 [facility] Eosinophils [#/volume] in Blood by Automated count 0.29 10^3/uL 0.00 - 0.70 [facility] Basophils [#/volume] in Blood by Automated count 0.07 10^3/uL 0.00 - 0.20 [facility] #IG 0.03 10^3/uL 0.00 - 0.10 [facility] ospital #NRBC 0.00 10^3/uL 0.00 - 0.00 [facility] [place] [facility] MANUAL DIFF NOT INDICATED [facility] RBC MORPH NOT INDICATED [facility] [place] [facility] ID Date Data Source [id number] 01/17/2021 09:33:00 AM EDT [facility] ([facility]) Name Value Range Interpretation Code Description Data Elizabeth rce(s) Supporting Document(s) US Doppler Unilateral Venous Leg LT Laboratory test result [facility] ([facility]) ID Date Data Source [id number] 01/08/2021 07:05:00 PM EDT [facility] Name Value Range Interpretation Code Description Data Elizabeth rce(s) Supporting Document(s) Trich vag by BA [facility] TESTS RESULT FLAG UNI TS REF RANGE LAB Trich vag by BA Negative (Negative) 01 FLAG LEGEND: L-Low Normal,H-High Normal,LL-Alert Low,HH-Alert High <-Panic Low,>-Panic High,A-Abnormal,AA-Critical Abnormal Performed at:01 RN [facility] [address] [id number] Loretta Hauser MD, ID Date Data Source [id number] 01/03/2021 08:23:00 PM EDT [facility] Name Value Range Interpretation Code Description Data Elizabeth rce(s) Supporting Document(s) SARS coronavirus 2 RNA [Presence] in Res piratory specimen by BA with probe detection NEGATIVE [facility] This lab was ordered by [facility] a nd reported by [facility]. ID Date Data Source [id number] 10/14/2020 06:43:31 PM EDT [facility] Name Value Range Interpretation Code Description Data Elizabeth rce(s) Supporting Document(s) ED Provider Note [facility] JPOCRd6xBbKGFvIo63/YPSllKDIjv2OjPCoeXYt5FNtjWGQxS1NmDFJ4oM7dPWJ7THvTHqNjYiAhXjF9 [facility] [file] [employer]ENT+uHwNBUTxHv/+S8xUKADJtImbV17+LJBJaT9SmfgpMH2IdnVTiGXBdPNr01xTvcJnFTbnQJF5zSs9n [file] 33MIhDUIcLJPpaNcfhAu+xOnPRk5tlm9NXy/j2FO1BxNtSZbHWWlqSqHbWNY+[employer]+e+91mQrdqf5+2wu+ [file] CZCcXOXgGTQuDi5xZKVJKh3+HRaatTShfQizMMYZVscoRvV3YRrdXZFCZh3K ID Date Data Source [id number] 10/13/2020 10:15:03 AM EDT [facility] Name Value Range Interpretation Code Description Data Elizabeth rce(s) Supporting Document(s) Consultation [facility] AUTJNq7zOdUACyIu39/RPVzaSHHia9YhAGwjDHq2KQnpPGNkA8DzPQS7aH5cQBG7MXkYAyNlUtQhXlM2 lbm LjIvgVFfUgASEwBrjFDgVuOHiqNgmxfEUvKC6EfMV6MCDlO33zYQAxVYFqX1VwAFE5REh+Tm9DZOAuvN XyNR2SUogM8T4gu1e1La8+jA2IIF70eGp4ioy6msLpPVv5p0udmZJQrRpybskEfbTx76B//ckSFWWmyq 4cyOsk74JqvzuzxtL6aStLziZUa+7yCdpqk8Wzt0f/ XecE58nw155EASyM24Eo/vMekBRzzM4hmqP570M/f+DFQO2/aCMgpaoeZB9lZDa+br49cFsPbuepWTmd cEOBGEvVhYJUvmrg59Xl0nDcjh8Y9aHC60xa6Oy1YXP/9bvdAoYl7bO+eY1rXTJl1e03d8RijsIevESK lao+zKg6VZiVd39C0Jv/OMjz0epr1aLwOxxSP39VWsL [file] YoCOYkDXT7PeSaLE3QNx0QVoK6AFS5aKYhXb8ZVua9YbbMJjAaKC1GHFl= ID Date Data Source [id number] 10/12/2020 10:11:00 PM EDT [facility] CT SOFT TISSUE NECK WITH CONTRAST [id number] INAL RESULTInterpreted by:Francisca Brandon MDINDICATION: 40-year-old female [...] rce(s) Supporting Document(s) ID Date Data Source [id number] 10/12/2020 08:24:20 PM T [facility] XR CHEST FRONTAL AND LATERAL [id number] RESULTInterpreted by:Maryse Leblanc MDINDICATION: Dyspnea.COMPARISON: Chest radiograph 04/15/2016, Roll Filler from CT of the chest 06/23/2020. TECHNIQUE: [...] rce(s) Supporting Document(s) ID Date Data Source [id number] 10/12/2020 07:56:39 PM [facility] Name Value Range Interpretation Code Description Data [facility] rce(s) Supporting Document(s) Leukocytes [#/volume] in Blood by Automated count 10.6 10*3/uL 4-[address] [facility] Erythrocytes [#/volume] in Blood by Automated count 5.36 10*6/uL 4.1- 5.[address] [facility] Hemoglobin [Mass/volume] in Blood 15.2 g/dL 11.5-15.5 [facility] Hematocrit [Volume Fraction] of Blood by Automated count 45.2 % 3 6-[address] [facility] Erythrocyte mean corpuscular volume [Entitic volume] by Auto mated count 84.2 fL 80-96 [facility] Erythrocyte mean corpuscular hemoglobin [Entitic mass] by Automated count 28.3 pg 27-33 [facility] Erythrocyte mean corpuscular hemoglobin concentration [Mass/volume] by Automated count 33.6 g/dL 32.0-36.0 [facility]th[facility] distribution width [Ratio] by Automated count 17.7 % 11.5-14.[address] [facility] Platelets [#/volume] in Blood by Automated count 336 10*3/uL 150-400 [facility] Differential cell count method - Blood [facility] Neutrophils/100 leukocytes in Blood by Automated count 61 % [facility] Lymphocytes/100 leukocytes in Blood by Automated count 25 % [facility] Monocytes/100 leukocytes in Blood by Automated count 9 % [facility] Eosinophils/100 leukocytes in Blood by Automated count 4 % [facility] Basophils/100 leukocytes in Blood by Automated count 1 % [facility] Neutrophils [#/volume] in Blood by Automated count 6.48 10*3/uL 1.8-[address] [facility] Lymphocytes [#/volume] in Blood by Automated count 2.62 10*3/uL 1.2-[address] [facility] Monocytes [#/volume] in Blood by Automated count 0.92 10*3/uL 0-0.[address] [facility] Eosinophils [#/volume] in Blood by Automated count 0.44 10*3/uL 0-0.5 [facility] Basophils [#/volume] in Blood by Automated count 0.10 10*3/uL 0-0.2 [facility] Nucleated erythrocytes/100 leukocytes [Ratio] in Blood by Automated count 0 /100{WBCs} 0-0 [facility] ID Date Data Source [id number] 10/12/2020 07:10:29 PM EDT [facility] Name Value Range Interpretation Code Description Data Elizabeth rce(s) Supporting Document(s) Leukocytes [#/volume] in Blood by Automated count 4-10 [facility] CALLED TO ESSENCE SOTELO IN ED AT 1909 BY 1767 Erythrocytes [#/volume] in Blood by Automated count 4.1-5. 3 [facility] Hemoglobin [Mass/volume] in Blood 11.5-15.5 [facility] Hematocrit [Volume Fraction] of Blood by Automated count 3 6-45 [facility] Erythrocyte mean corpuscular volume [Entitic volume] by Automate d count 80-96 [facility] Erythrocyte mean corpuscular hemoglobin [Entitic mass] by Au tomated count 27-33 [facility] Erythrocyte mean corpuscular hemoglobin concentration [Mass/volume] by Automated count 32.0-36.0 [facility] Erythrocyte distribution width [Ratio] by Automated count 11.5-14.5 [facility] Platelets [#/volume] in Blood by Automated count 150-400 [facility] Sample quality of Dried blood spot [facility] Differential cell count method - Blood [facility] ID Date Data Source [id number] 10/12/2020 07:23:32 PM EDT [facility] Name Value Range Interpretation Code Description Data Elizabeth rce(s) Supporting Document(s) Prothrombin time (PT) 12.2 s 12.5-14.[address] [facility] INR in Platelet poor plasma by Coagulation assay 0.90 [facility] Routine intensity oral anticoagulation I NR is typically 2.0-3.0. Target INR must be clinically individualized. ID Date Data Source [id number] 10/12/2020 07:53:27 PM EDT [facility] Name Value Range Interpretation Code Description Data Elizabeth rce(s) Supporting Document(s) Albumin [Mass/volume] in Serum or Plasma by Bromocresol green (BCG) dye binding method 4.2 g/dL 3.5-5.2 [facility] Bilirubin.total [Mass/volume] in Serum or Plasma 0.2 mg/dL <1.2 [facility] Calcium [Mass/volume] in Serum or Plasma 9.7 mg/dL 8.6-10.0 [facility] Chloride [Moles/volume] in Serum or Plasma 90 mmol/L 98-[address] [facility] Creatinine [Mass/volume] in Serum or Plasma 0.84 mg/dL 0.50-0.90 [facility] Glucose [Mass/volume] in Serum or Plasma 323 mg/dL 70-[address] [facility] Alkaline phosphatase [Enzymatic activity/volume] in Serum or Plasma 109 U/L 35-[address] [facility] Potassium [Moles/volume] in Serum or Plasma 4.4 mmol/L 3.4-5.1 [facility] Hemolyzed Protein [Mass/volume] in Serum or Plasma 7.4 g/dL 6.4-8.3 [facility] Sodium [Moles/volume] in Serum or Plasma 134 mmol/L 136-[address] [facility] Aspartate aminotransferase [Enzymatic activity/volume] in Serum or Plasma 19 U/L <32 [facility] Hemolyzed Urea nitrogen [Mass/volume] in Serum or Plasma 4 mg/dL 6-[address] [facility] Osmolality of Serum or Plasma by calculation 287 mosm/kg 275-300 [facility] Creatinine/Urea nitrogen [Mass Ratio] in Serum or Plasma 5 [facility] Bicarbonate [Moles/volume] in Serum 35 mmol/L 22-[address] [facility] Alanine aminotransferase [Enzymatic activity/volume] in Seru m or Plasma 11 U/L <33 [facility] Anion gap 3 in Serum or Plasma 9 mmol/L 8-15 [facility] Glomerular filtration rate/1.73 sq M pre dicted among non-blacks [Volume Rate/Area] in Serum or Plasma by Creatinine-based formula (MDRD) 85 mL/min/1.73m2 >60 [facility] Glomerular filtration rate/1.73 sq M pre dicted among blacks [Volume Rate/Area] in Serum or Plasma by Creatinine-based formula (MDRD) >60 [facility] ID Date Data Source [id number] 08/22/2020 03:21:00 PM EST [facility] ([facility]) Name Value Range Interpretation Code Description Data Elizabeth rce(s) Supporting Document(s) Mammo Screening Bilateral with CAD Laboratory test result [facility] ([facility]) ID Date Data Source [id number] 06/23/2020 05:54:00 PM EST [facility] ([facility]) Name Value Range Interpretation Code Description Data Elizabeth e(s) Supporting Document(s) Respiratory Panel Laboratory test result [facility] ([facility]) This respiratory PCR panel detects Influ mattie [...] 1: HUMAN RHINOVIRUS/ENTEROVIRUS ID Date Data Source [id number] 06/23/2020 05:54:00 PM EST [facility] ([facility]) Name Value Range Interpretation Code Description Data Elizabeth rce(s) Supporting Document(s) Lactate [Mass/volume] in Serum or Plasma 1.4 mmol/L 0.4-2.0 Normal (applies to non-numeric results) [facility] Y/N query for Sepsis Lactate Rule: Y ID Date Data Source [id number] 06/23/2020 05:54:00 PM EST [facility] ([facility]) Name Value Range Interpretation Code Description Data Elizabeth rce(s) Supporting Document(s) Glucose, Fasting 206 mg/dL 70-100 Above high normal [facility] ([facility]) Blood Urea Nitrogen 6 mg/dL 7-18 Below low normal [facility] ([facility]) Creatinine For GFR 0.68 mg/dL 0.55-1.30 Normal (applies to non -numeric results) [facility] ([facility]) Glomerular Filtration Rate Laboratory test result Normal (applies to non- numeric results) [facility] ([facility]) <content>Units are mL/min/1.73 m2</content>
<content></content>
<content>Chronic Kidney Disease Staging per NKF:</content>
<content></content>
<content>Stage I & II GFR >=60 Normal to Mildly Decreased</content>
<content>Stage III GFR 30- 59 Moderately Decreased</content>
<content>Stage IV GFR 15-29 Severely Decreased</content>
<content>Stage V GFR <15 Very Little GFR Left</content>
<content>ESRD GFR <15 on TELEVISION NEWS PHOTOGRAPHER</content>
<content></content> Sodium Level 128 meq/L 136-145 Below low normal [facility] ([facility]) Potassium Serum 4.1 meq/L 3.5-5.1 Normal (applies to non-numeric results) [facility] ([facility]) Carbon Dioxide Level 31 meq/L 21-32 Normal (applies to non-num sukumar results) [facility] ([facility]) Chloride Level 92 meq/L 98-107 Below low normal [facility] ([facility]) Calcium Level 9.4 mg/dL 8.5-10.1 Normal (applies to non-numeric re sults) [facility] ([facility]) Anion Gap 5 meq/L 8-16 Below low normal [facility] ( [facility]) ID Date Data Source [id number] 06/23/2020 05:54:00 PM EST [facility] ([facility]) Name Value Range Interpretation Code Description Data Elizabeth rce(s) Supporting Document(s) White Blood Count 17.6 10 4.0-10.0 Above high normal [facility] ([facility]) Red Blood Count 5.33 10 4.00-5.40 Normal (applies to non-numeric results) [facility] ([facility]) Hemoglobin 14.4 g/dL 12.0-15.5 Normal (applies to non-numeric resul ts) [facility] ([facility]) Hematocrit 45.8 % 36.0-47.0 Normal (applies to non-numeric resul ts) [facility] ([facility]) Mean Corpuscular Volume 85.9 fl 80.0-96.0 Normal ( applies to non-numeric results) [facility] ([facility]) Mean Corpuscular Hemoglobin 27.0 pg 27.0-33.0 Norm al (applies to non-numeric results) [facility] ([facility]) Mean Corpuscular HGB Conc 31.4 g/dL 32.0-36.5 Below low normal [facility] ([facility]) Red Cell Distribution Width 14.8 % 11.5-14.5 Above high normal [facility] ([facility]) Platelet Count, Automated 338 10 150-450 Normal (applies to non-numeric results) [facility] ([facility]) Neutrophils % 79.1 % 36.0-66.0 Above high normal [facility] ([facility]) Lymph % 10.8 % 24.0-44.0 Below low normal [facility] ( [facility]) [place] % 9.0 % 0.0-5.0 Above high normal [facility] ([facility]) Eos % 0.2 % 0.0-3.0 Normal (applies to non-numeric resul ts) [facility] ([facility]) Baso % 0.2 % 0.0-1.0 Normal (applies to non-numeric resul ts) [facility] ([facility]) Immature Granulocyte % 0.7 % 0-3.0 Normal (applies to non-n umeric results) [facility] ([facility]) Nucleated Red Blood Cell % 0.0 % 0-0 Normal (applies to n on-numeric results) [facility] ([facility]) Neutrophils # 13.9 10 1.5-8.5 Above high normal [facility] ([facility]) Lymph # 1.9 10 1.5-5.0 Normal (applies to non-numeric resul ts) [facility] ([facility]) Eos # 0.0 10 0.0-0.5 Normal (applies to non-numeric resul ts) [facility] ([facility]) [place] # 1.6 10 0.0-0.8 Above high normal [facility] ([facility]) Baso # 0.0 10 0.0-0.2 Normal (applies to non-numeric resul ts) [facility] ([facility]) ID Date Data Source [id number] 06/23/2020 05:54:00 PM EST [facility] Name Value Range Interpretation Code Description Data Elizabeth rce(s) Supporting Document(s) SARS-CoV-2 (COVID 19) [facility] This lab was ordered by [facility] a nd reported by [facility]. ID Date Data Source [id number] 06/23/2020 05:08:00 PM EST [facility] ([facility]) Name Value Range Interpretation Code Description Data Elizabeth rce(s) Supporting Document(s) ABG pH (Arterial) 7.399 units 7.350-7.450 Normal (applie s to non-numeric results) [facility] ([facility]) ABG Partial Pressure O2 50.8 mmHg 75.0-100.0 Below low normal [facility] ([facility]) ABG Partial Pressure Co2 49.9 mmHg 35.0-45.0 Above high normal [facility] ([facility]) ABG Total Co2 31.7 meq/L 22.0-29.0 Above high normal [facility] ([facility]) ABG Hco3 30.1 meq/L 22.0-26.0 Above high normal [facility] ([facility]) ABG Base Excess 4.2 Above high normal [facility] ([facility]) ABG Standard Hco3 27.9 meq/L 22.0-26.0 Above high normal [facility] ([facility]) ABG O2 Saturation 88.7 % 95.0-99.0 Below low normal [facility] ([facility]) ID Date Data Source [id number] 06/29/2020 08:28:00 AM [facility] Imaging Services Department Imaging Report [address], [place] [address] %(RAD)RES..mtdd.print.filter("line") Name: ESSENCE AGUERO : 1980 Age/Sex: 39F Ordering Provider: VANESSA Haywood Med Rec #: [id number] Reg Status: [facility] Room #: Date of Service: 06/21/20 Report Number: [id number] cc:TOYA Gorman Send Report To: [id number] XRP/XR Chest 2 View [Pa & Lat] [...] Dictation Date/Time: 06/28/20 1355 Transcribed Date/Time: 06/29/20827 Automatic Grinding Machine Operator: [email or web address] Name Value Range Interpretation Code Description Data Elizabeth rce(s) Supporting Document(s) ID Date Data Source [id number] 05/16/2020 02:20:00 PM EDT [facility] ([facility]) Name Value Range Interpretation Code Description Data Elizabeth rce(s) Supporting Document(s) Appearance of Urine Laboratory test result [facility] ([facility]) Color of Urine Laboratory test result [facility] ([facility]) Spec [place] 1.000 [facility] ([facility]) pH of Urine by Test strip 8 [facility] ([facility]) Leukocytes Laboratory test result [facility] ([facility]) Protein [Presence] in Urine by Test strip Laboratory test result [facility] ([facility]) Nitrate [Presence] in Urine Laboratory test result [facility] ([facility]) Ketones [Presence] in Urine by Test strip Laboratory test result [facility] ([facility]) Inhouse Glucose Laboratory test result [facility] ([facility]) Urobilinogen Laboratory test result [facility] ([facility]) Blood type and Indirect antibody screen panel - Blood Laboratory test result [facility] ([facility]) Procedure Social History Code Duration Value Status Description Data Source(s ) Smoking 06/14/2021 12:00:00 AM EST Current Smoker completed Curre nt Smoker eCW1 ([facility]) Alcohol intake 10/12/2020 12:00:00 AM EDT Current drinker of al cohol (finding) completed Current drinker of alcohol (finding) [facility] Smoking 10/12/2020 12:00:00 AM EDT Current every day smoker co mpleted Current every day smoker [facility] Vital Signs ID Date Data Source [id number] Name Value Range Interpretation Code Description Data Source(s) Body height 69.25 [in_i] 69.25 [in_i] eCW1 ([facility]) Body weight 264.0 [lb_av] 264.0 [lb_av] eCW1 ([facility]) Body mass index (BMI) [Ratio] 38.70 kg/m2 38.70 kg/m2 [facility] ([facility]) Body temperature 98.0 [degF] 98.0 [degF] eCW1 ( [facility]) Heart rate 90 /min 90 /min eCW1 ([facility]) Respiratory rate 22 /min 22 /min eCW1 ([facility]) Oxygen saturation in Arterial blood by Pulse oximetry 92 % 92 % eCW1 ([facility]) Body height 71 [in_i] 71 [in_i] [facility] ([facility]) 5'11" Respiratory rate 16 /min 16 /min [facility] ( [facility]) Body surface area Derived from formula 2.37 m2 2.37 m2 [facility] ([facility]) Body temperature 97.3 [degF] 97.3 [degF] [facility] ([facility]) Systolic blood pressure 122 mm[Hg] 122 mm[Hg] [facility] ([facility]) Body weight 264.25 [lb_av] 264.25 [lb_av] [facility] ([facility]) Heart rate 78 /min 78 /min [facility] ([facility]) Oxygen saturation in Arterial blood by Pulse oximetry 89 % 89 % [facility] ([facility]) Body weight 119.864 kg 119.864 kg [facility] ([facility]) Diastolic blood pressure 80 mm[Hg] 80 mm[Hg] [facility] ([facility]) Body mass index (BMI) [Ratio] 36.9 kg/m2 36.9 k g/m2 [facility] ([facility]) Heart rate 112 /min 112 /min [facility] ([facility]) Body temperature 97.9 [degF] 97.9 [degF] [facility] ([facility]) Oxygen saturation in Arterial blood by Pulse oximetry 94 % 94 % [facility] ([facility]) Body weight 267.25 [lb_av] 267.25 [lb_av] [facility] ([facility]) Respiratory rate 20 /min 20 /min [facility] ( [facility]) Body surface area Derived from formula 2.39 m2 2.39 m2 [facility] ([facility]) Body weight 121.225 kg 121.225 kg [facility] ([facility]) Body height 71 [in_i] 71 [in_i] [facility] ([facility]) 5'11" Body mass index (BMI) [Ratio] 37.3 kg/m2 37.3 k g/m2 [facility] ([facility]) Systolic blood pressure 132 mm[Hg] 132 mm[Hg] [facility] ([facility]) Diastolic blood pressure 78 mm[Hg] 78 mm[Hg] [facility] ([facility]) Body surface area Derived from formula 2.41 m2 2.41 m2 [facility] ([facility]) Systolic blood pressure 130 mm[Hg] 130 mm[Hg] [facility] ([facility]) Diastolic blood pressure 72 mm[Hg] 72 mm[Hg] [facility] ([facility]) Heart rate 80 /min 80 /min [facility] ([facility]) Body temperature 98.1 [degF] 98.1 [degF] [facility]) Respiratory rate 18 /min 18 /min [facility] ( [facility]) Oxygen saturation in Arterial blood by Pulse oximetry 90 % 90 % [facility] ([facility]) Body weight 275.00 [lb_av] 275.00 [lb_av] [facility] ([facility]) Body weight 124.740 kg 124.740 [facility] Body height 71 [in_i] 71 [in_i] [facility] ([facility]) 5'11" Body mass index (BMI) [Ratio] 38.4 kg/m2 38.4 k g/m2 [facility] ([facility]) ID Date Data Source [id number] 06/12/2021 11:54:00 AM EST [facility] Name Value Range Interpretation Code Description Data Source(s) Weight Measurement Method 8 8 [facility] Weight 3840 3840 [facility] pital Temperature Source 7 7 [facility] Temperature 97.4 97.4 [facility] spital Respiratory Effort 1 1 [facility] Respiratory Rate 18 18 [facility] Pulse Assessment Method 4 4 [facility] P[facility] 83 83 [facility] p[facility] Height 71 71 [facility] pital Blood Pressure 127/90 127/90 [facility] Weight Measurement Method 8 8 [facility] Weight 3840 3840 [facility] pital Temperature Source 7 7 [facility] Temperature 97.4 97.4 [facility] spital Respiratory Effort 1 1 [facility] Respiratory Rate 18 18 [facility] Pulse Assessment Method 4 4 [facility] Pulse Rate 89 89 [facility] pital Height 71 71 [facility] pital Blood Pressure 199/118 199/118 [facility] ID Date Data Source [id number] 12/20/2020 07:48:00 PM EDT [facility] Name Value Range Interpretation Code Description Data Source(s) Weight 4160 4160 [facility] pital Temperature Source 7 7 [facility] 97.6 97.6 [facility] Res[facility] Effort 1 1 [facility] Respiratory Rate 18 18 [facility] Pulse Assessment Method 4 4 [facility] Pulse Rate 95 95 [facility] pital Blood Pressure 129/87 129/87 [facility] Weight 4160 4160 [facility] pital Temperature Source 7 7 [facility] Temperature 97.6 97.6 [facility] Res[facility] Effort 1 1 [facility] Respiratory Rate 18 18 [facility] Pulse Assessment Method 4 4 [facility] Pulse Rate 95 95 [facility] pital Blood Pressure 129/87 129/87 [facility] Weight 4160 4160 [facility] pital Temperature Source 7 7 [facility] Temperature 97.6 97.6 [facility] Respiratory Effort 1 1 [facility] Respiratory Rate 18 18 [facility] Pulse Assessment Method 4 4 [facility] Pulse Rate 95 95 [facility] pital Blood Pressure 129/87 129/87 [facility] ID Date Data Source [id number] 10/16/2020 05:15:29 PM EDT [facility] Name Value Range Interpretation Code Description Data Source(s) WEIGHT RECORDED 270 lb 270 lb [facility] Body height Measured 71 in [address] [facility] ID Date Data Source [id number] 06/29/2020 10:24:00 AM EST [facility] spital Name Value Range Interpretation Code Description Data Source(s) Weight Measurement Method 8 8 [facility] Weight 4400 4400 [facility] pital Temperature Source 7 7 [facility] Temperature 97.1 97.1 [facility] spital Respiratory Effort 1 1 [facility] Respiratory Rate 16 16 [facility] Pulse Assessment Method 4 4 [facility] Pulse Rate 86 86 [facility] pital Height 71 71 [facility] Blood Pressure 111/78 111/78 [facility]
[2021-07-02] MEDS ORDERED: MED REC COMMENT (21:21)
--- NOTE | 2021-07-02 21:23 | ECGEPIP ---
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
[2021-07-02] MEDS ORDERED: ISOVUE-370 76% 100ML VIAL As Ordered ONE (21:25)
[2021-07-02 21:29] LABS: ABG BASE EXCESS 1.9 (-2.0-2.0); ABG HCO3 27.6 MEQ/L (22.0-26.0); ABG O2 SATURATION 94.2 % (95.0-99.0); ABG PARTIAL PRESSURE O2 69.2 mmHg (75.0-100.0); ABG STANDARD HCO3 26.1 MEQ/L (22.0-26.0); ABG TOTAL CO2 29.1 MEQ/L (22.0-29.0); ABG pH (ARTERIAL) 7.387 UNITS (7.350-7.450)
[2021-07-02 22:02] LABS: ERYTHROCYTE SEDIMENTATION RATE 1 mm/hr (0-20)
[2021-07-02] MEDS ORDERED: GLUCOSE 4GM CHEW TABLET PO PRN (22:05)
[2021-07-02] MEDS ORDERED: GLUCAGON INJ 1MG VIAL SC PRN (22:05)
[2021-07-02] MEDS ORDERED: DEXTROSE 50% 50 ML SYRINGE IV PRN (22:05)
[2021-07-02] MEDS ORDERED: hydrOXYzine 25 MG TAB PO PRN (22:20)
[2021-07-02] MEDS ORDERED: CYCLOBENZAPRINE 10MG TABLET PO PRN (22:20)
[2021-07-02] MEDS ORDERED: FLUTICASONE PROP 0.05% NASAL SPRAY 16 GM (FLONASE) PRN (22:20)
--- NOTE | 2021-07-02 22:24 | REPVR ---
PROCEDURE INFORMATION: Exam: CTA Chest With Contrast Exam date and time: 07/02/2021 9:37 PM Age: 40 years old Clinical indication: Shortness of breath; Additional info: R/O pe, mass TECHNIQUE: Imaging protocol: Computed tomographic angiography of the chest with contrast. 3D rendering (Not supervised by radiologist): MIP and/or 3D reconstructed images were created by the technologist. Radiation optimization: All CT scans at this facility use at least one of these dose optimization techniques: automated exposure control; mA and/or kV adjustment per patient size (includes targeted exams where dose is matched to clinical indication); or iterative reconstruction. Contrast material: ISOVUE 370; Contrast volume: 75 ml; Contrast route: INTRAVENOUS (IV); COMPARISON: CT ANGIO CHEST 06/23/2020 9:11 PM FINDINGS: Pulmonary arteries: No focal pulmonary artery filling defect to suggest acute pulmonary embolus. Pulmonary vascular/interstitial pattern does not suggest active pulmonary edema. Aorta: No thoracic aortic aneurysm or dissection. Lungs: No suspicious lung mass or air space process. No central endobronchial lesion. Minimal linear atelectasis or scarring lateral left lung base. Pleural spaces: No pleural effusion or pneumothorax. Heart: No overt cardiac enlargement or abnormal volume of pericardial fluid. Lymph nodes: Small, nonspecific mediastinal nodes are present. Gallbladder and bile ducts: Gallbladder is surgically absent. Bones/joints: Bony structures show no acute fracture or destructive process. Soft tissues: Unremarkable. IMPRESSION: 1. No evidence of acute pulmonary embolus. 2. No other acute or concerning focal intrathoracic abnormality. Electronically signed by: Smith Chung On 07/02/2021 22:23:31 PM
--- NOTE | 2021-07-02 22:25 | REPVR ---
PROCEDURE INFORMATION: Exam: XR Right Clavicle, Complete Exam date and time: 07/02/2021 9:41 PM Age: 40 years old Clinical indication: Pain; Other: Clavicle; Additional info: Cervical radiculopathy TECHNIQUE: Imaging protocol: XR Right clavicle complete. Views: Any number of views. COMPARISON: CR PORTABLE CHEST X-RAY 07/02/2021 6:42 PM FINDINGS: Bones/joints: AC joint shows normal alignment. No acute fracture. No osseous lesion. AC joint space is well-maintained for age. Soft tissues: No focal soft tissue swelling or soft tissue defect. No radiopaque foreign body. IMPRESSION: Unremarkable radiograph series of the right clavicle and AC joint Electronically signed by: Smith Chung On 07/02/2021 22:24:57 PM
--- NOTE | 2021-07-02 22:27 | REPVR ---
PROCEDURE INFORMATION: Exam: XR Cervical Spine Exam date and time: 07/02/2021 9:41 PM Age: 40 years old Clinical indication: Radicular pain (radiculopathy); Cervical region; Additional info: Cervical radiculopathy TECHNIQUE: Imaging protocol: XR of the cervical spine. Views: 6 or more views. COMPARISON: CR Spine, Cervical 12/16/2018 2:24 PM FINDINGS: Bones/joints: No segmental vertebral malalignment. Odontoid and cervical spine lateral masses align normally. Vertebral body height and morphology are maintained. No acute fracture. No destructive or blastic bone lesion. Disc spaces are appropriate for age. Cervical obliques demonstrate mild left-sided neural foraminal stenosis C3-C4 and C5-C6 Soft tissues: No focal prevertebral soft tissue abnormality. Other findings: Lateral view is not provided IMPRESSION: 1. No acute process. 2. Suspected mild left-sided neural foraminal stenosis C3-C4 and C5-C6 secondary to uncovertebral arthropathy Electronically signed by: Smith Chung On 07/02/2021 22:27:14 PM
--- NOTE | 2021-07-02 22:29 | REPVR ---
PROCEDURE INFORMATION: Exam: XR Right Shoulder Exam date and time: 07/02/2021 9:41 PM Age: 40 years old Clinical indication: Pain; Shoulder; Right; Additional info: Cervical radiculopathy TECHNIQUE: Imaging protocol: XR Right shoulder. Views: 2 or more views. COMPARISON: CR Shoulder, complete RIGHT 12/16/2018 2:19 PM FINDINGS: Bones/joints: Osseous mineralization is normal for age. No evidence of acute fracture. No concerning osseous lesion. AC joint is aligned normally. Glenohumeral joint is aligned normally. Visualized upper ribs are unremarkable. Soft tissues: No abnormal soft tissue process. No concerning soft tissue calcifications. IMPRESSION: Unremarkable shoulder radiographs. Electronically signed by: Smith Chung On 07/02/2021 22:28:56 PM
--- NOTE | 2021-07-02 22:30 | REPVR ---
PROCEDURE INFORMATION: Exam: XR Left Hip Exam date and time: 07/02/2021 9:41 PM Age: 40 years old Clinical indication: Hip pain; Left hip; Additional info: Cervical radiculopathy TECHNIQUE: Imaging protocol: XR Left hip. Views: 2 or 3 views hip with pelvis when performed. COMPARISON: CT ABD/PEL W/IV CONTRAST ONLY 01/03/2021 5:09 PM FINDINGS: Bones/joints: Bones are aligned normally. No acute fracture. No concerning bone lesion. No evidence of femoral head osteonecrosis. Hip joint space is well-maintained for age. Imaged portion of the SI joint is unremarkable. Soft tissues: No focal soft tissue abnormality. IMPRESSION: Unremarkable radiographic series of the hip. Electronically signed by: Smith Chung On 07/02/2021 22:30:03 PM
[2021-07-02 22:40] VITALS: BP 130/81
[2021-07-02] MEDS ORDERED: REMDESIVIR 200 MG in NS 250 ML IV ONE (23:00)
--- NOTE | 2021-07-02 23:01 | REPVR ---
PROCEDURE INFORMATION: Exam: US Duplex Lower Extremity Veins, Bilateral Exam date and time: 07/02/2021 10:55 PM Age: 40 years old Clinical indication: Screening exam; SOB, covid positive; Additional info: R/O dvt TECHNIQUE: Imaging protocol: Real-time duplex ultrasound of the extremities with 2-D johansen scale, color Doppler flow and spectral waveform analysis with image documentation. Complete exam focused on the bilateral lower extremity veins. COMPARISON: US Duplex, Ext,LOWER veins,unilat RIGHT 03/20/2016 8:00 AM FINDINGS: Right deep veins: Common femoral, femoral, proximal profunda femoral and popliteal veins are patent without thrombus. Normal Doppler waveforms. Normal compressibility and/or augmentation response. Right superficial veins: Saphenofemoral junction is patent without thrombus. Left deep veins: Common femoral, femoral, proximal profunda femoral and popliteal veins are patent without thrombus. Normal Doppler waveforms. Normal compressibility and/or augmentation response. Left superficial veins: Saphenofemoral junction is patent without thrombus. Soft tissues: No abnormal focal fluid collection. IMPRESSION: No evidence of deep vein thrombosis. Electronically signed by: Smith Chung On 07/02/2021 23:00:47 PM
[2021-07-02] MEDS ORDERED: ACETAMINOPHEN 325 MG/10.15 ML UDC GT PRN (23:10)
[2021-07-03] VITALS (16 sets, daily range): BP systolic 102–142; BP diastolic 58–86
[2021-07-03] MEDS ORDERED: SODIUM CHLORIDE 0.9% INJ 10 ML SYR IV ONE (01:00)
[2021-07-03] MEDS: LEVALBUTEROL 1.25 MG/0.5 ML CONCENTRATE NEB INH SCH ×4 (02:00→20:00)
[2021-07-03 05:41] LABS: BASO % 0.4 % (0.0-1.0); HEMATOCRIT 46.8 % (36.0-47.0); LYMPH # 0.7 10^3/uL (1.5-5.0); LYMPH % 10.4 % (24.0-44.0); MEAN CORPUSCULAR HEMOGLOBIN 26.5 pg (27.0-33.0); MEAN CORPUSCULAR HGB CONC 31.4 g/dl (32.0-36.5); MEAN CORPUSCULAR VOLUME 84.5 fl (80.0-96.0); MONO # 0.2 10^3/uL (0.0-0.8); MONO % 2.2 % (2.0-8.0); NEUTROPHILS # 5.9 10^3/uL (1.5-8.5); NEUTROPHILS % 86.6 % (36.0-66.0); PLATELET COUNT, AUTOMATED 256 10^3/uL (150-450); RED BLOOD COUNT 5.54 10^6/uL (4.00-5.40); WHITE BLOOD COUNT 6.8 10^3/uL (4.0-10.0)
[2021-07-03 05:49] LABS: HEMOGLOBIN 14.7 g/dl (12.0-15.5)
[2021-07-03 05:54] LABS: INR 0.99; PROTHROMBIN TIME 13.5 SECONDS (12.7-14.5)
[2021-07-03 05:55] LABS: PARTIAL THROMBOPLASTIN TIME 31.2 SECONDS (25.9-37.0)
[2021-07-03 05:58] LABS: D-DIMER QUANT 382.21 ng/ml (<500)
[2021-07-03 06:19] LABS: C REACTIVE PROTEIN QUANTITATIV 0.95 MG/DL (0.00-0.30)
[2021-07-03 06:20] LABS: ALBUMIN 3.5 GM/DL (3.2-5.2); ALT/SGPT 50 U/L (12-78); BILIRUBIN,TOTAL 0.4 MG/DL (0.2-1.0); BLOOD UREA NITROGEN 9 MG/DL (7-18); CARBON DIOXIDE LEVEL 25 MEQ/L (21-32); CHLORIDE LEVEL 95 MEQ/L (98-107); CREATININE FOR GFR 0.94 MG/DL (0.55-1.30); GLOMERULAR FILTRATION RATE > 60.0 (>58); GLUCOSE, FASTING 429 MG/DL (70-100); MAGNESIUM LEVEL 1.8 MG/DL (1.8-2.4); POTASSIUM SERUM 4.6 MEQ/L (3.5-5.1); SODIUM LEVEL 131 MEQ/L (136-145); TOTAL PROTEIN 7.1 GM/DL (6.4-8.2)
[2021-07-03] MEDS: LEVOTHYROXINE 75MCG TABLET (0.075MG) PO SCH (06:25)
[2021-07-03] MEDS: HumaLOG INSULIN (NovoLOG) PER UNIT SC SCH ×4 (07:01→20:23)
[2021-07-03] MEDS: BUDESONIDE 0.5 MG/2 ML INHALATION SUSPENSION NEB SCH ×2 (08:00→20:00)
[2021-07-03 08:13] LABS: C REACTIVE PROTEIN QUANTITATIV 0.92 MG/DL (0.00-0.30); FERRITIN 34 NG/ML (8-252); LDH LACTATE DEHYDROGENASE 233 U/L (84-246)
[2021-07-03] MEDS: GABAPENTIN 400MG CAP PO SCH ×3 (08:25→20:09)
[2021-07-03] MEDS: ATORVASTATIN 20 MG TAB PO SCH (08:25)
[2021-07-03] MEDS: ASPIRIN 81 MG CHEW TABLET PO SCH (08:25)
[2021-07-03] MEDS: BARICITINIB 2MG TABLET (OLUMIANT) FOR EUA PO SCH (08:29)
[2021-07-03] MEDS: dexameTHASONE 4 MG/ML 1ML VIAL (J1100 PER 1MG) IV SCH (08:31)
[2021-07-03] MEDS: DULoxetine 30MG CAPSULE (CYMBALTA) PO SCH (20:08)
[2021-07-03] MEDS: OMEPRAZOLE 20 MG CAP PO SCH (20:08)
[2021-07-03] MEDS: MONTELUKAST 10 MG TAB PO SCH (20:09)
[2021-07-03] MEDS: zolPIDEM TARTRATE 5 MG TAB PO SCH (20:09)
[2021-07-03] MEDS ORDERED: REMDESIVIR 100 MG in NS 250 ML IV SCH (21:00)
--- NOTE | 2021-07-03 21:06 | IPNPDOC ---
Text Note Date of Service The patient was seen on 07/03/21. NOTE Subjective: Patient seen and examined at bedside. No acute overnight events reported. Patient voices no new medical complaints this morning. Very talkative. PHYSICAL EXAMINATION: Vital Signs: reviewed General: NAD, lying comfortably in bed HEENT: NC/AT, EOMI Neck: supple, no masses Chest: Fair inspiratory effort, no crackles, no rales. Lung expansion bilateral symmetric Heart: +S1S2, RRR Abd: soft, NT, ND, +BS Ext: no edema Skin: no rashes MSK: full ROM at large joints Neuro: no gross focal deficits Psych: AAOx3 ASSESSMENT: 40-year-old female with a past medical history of laryngeal cancer status post laryngectomy and radiation 2001, status post decannulated stoma, type 2 diabetes, CVA 2015 with no residual deficits, panic disorder, depression, asthma, hypothyroidism. She presents with acute hypoxic respiratory failure secondary to COVID-19 infection, due to sick contact. She meets sepsis criteria. Patient also complaining of hemoptysis shortness of breath and left-sided chest pain. For this reason CT angiography will be ordered. Rule out pulmonary embol ism. Patient has numerous medical complaints pertaining to her right shoulder pain right neck pain left sided radiculopathy. Patient is admitted to Covid unit under PCU status she will be given a Decadron remdesivir and baricitinib. . PLAN: Sepsis/Acute hypoxic respiratory failure secondary COVID-19 infection - on admission desaturated to mid 80s, was placed on trach collar at 15 LPM, improved to 95%. - s/p 125 mg solumedrol - cardiac markers negative in ER - continue decadron 6 mg IV daily. - continue remdesivir regimen - continue baricitinib (14 days course, or until discharge home). - covid inflammatory lab marker panel ordered, will trend - levalburterol nebs prn #L chest pain - initial cardiac markers negative - no ischemic changes on EKG - will trend troponins - CTA chest negative for PE - bilateral LE venous duplex negative for DVT #Hemoptysis - chronic per patient, ongoing x 3 years - does not follow up with pulmonary or ENT - CXR reviewed above, no acute findings - use humidified O2 - previously D/w ENT Dr. David, agrees with plan - may require bronchoscopy in future - no anemia on CBC. 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 - PT eval ordered - reports no issues with toilet habit # NIDDM wit neuropathy - ISS, FSB S AC and HS - takes gabapentin 1200 mg TID, dose is very high, resume at 800 mg TID # hx of CVA w/o residual deficits/ DLP -c/w start ASA and Statin # Panic disorder with history of depression -c/w Duloxetine Hydroxyzine - appears very anxious, will order ativan prn # GERD - Omeprazole # Chronic Asthma - c/w Montelukast, xopenex prn - c/w pulmicort # Hypothyroidism - TSH 48.5 - T4 0.28 - takes levothyroxine 200 mcg daily - increased dose slightly to 220 mcg daily - will need to repeat TFTs in 4-6 weeks. # Obesity Complicates care DVT ppx: - SCDs. TEDs. - heparin 5000 untis q8h Disposition: pending clinical improvement VS,Layne, I+O VS, Layne, I+O Laboratory Tests 07/03/21 05:21 Vital Signs Date Time Temp Pulse Resp B/P (MAP) Pulse Ox O2 Delivery O2 Flow Rate FiO2 07/03/21 20:00 98.9 82 20 127/73 (91) 94 Trach Collar 5.0 28 I&O- Last 24 Hours up to 6 AM 07/03/21 06:00 Intake Total 360 ml Output Total 500 ml Balance -140 ml NICK BRADFORD MD Jul 03, 2021 21:06
[2021-07-03] MEDS ORDERED: SODIUM CHLORIDE 0.9% INJ 10 ML SYR IV SCH (22:00)
[2021-07-04] VITALS: BP 100/60
[2021-07-04] MEDS: LEVALBUTEROL 1.25 MG/0.5 ML CONCENTRATE NEB INH SCH (02:24)
[2021-07-04 04:00] VITALS: BP 117/65
[2021-07-04 05:08] LABS: BASO % 0.2 % (0.0-1.0); EOS % 0.2 % (0.0-3.0); HEMOGLOBIN 13.4 g/dl (12.0-15.5); LYMPH # 2.1 10^3/uL (1.5-5.0); LYMPH % 23.3 % (24.0-44.0); MEAN CORPUSCULAR HEMOGLOBIN 26.5 pg (27.0-33.0); MEAN CORPUSCULAR HGB CONC 31.2 g/dl (32.0-36.5); MEAN CORPUSCULAR VOLUME 85.1 fl (80.0-96.0); MONO # 1.4 10^3/uL (0.0-0.8); MONO % 15.6 % (2.0-8.0); NEUTROPHILS # 5.4 10^3/uL (1.5-8.5); NEUTROPHILS % 60.4 % (36.0-66.0); PLATELET COUNT, AUTOMATED 266 10^3/uL (150-450); RED BLOOD COUNT 5.05 10^6/uL (4.00-5.40); WHITE BLOOD COUNT 8.9 10^3/uL (4.0-10.0)
[2021-07-04 05:33] LABS: ALBUMIN 3.1 GM/DL (3.2-5.2); ALT/SGPT 39 U/L (12-78); BILIRUBIN,TOTAL 0.2 MG/DL (0.2-1.0); BLOOD UREA NITROGEN 11 MG/DL (7-18); CALCIUM LEVEL 8.7 MG/DL (8.5-10.1); CARBON DIOXIDE LEVEL 29 MEQ/L (21-32); CHLORIDE LEVEL 96 MEQ/L (98-107); CREATININE FOR GFR 1.02 MG/DL (0.55-1.30); GLOMERULAR FILTRATION RATE > 60.0 (>58); GLUCOSE, FASTING 299 MG/DL (70-100); SODIUM LEVEL 132 MEQ/L (136-145)
[2021-07-04] MEDS: LEVOTHYROXINE 75MCG TABLET (0.075MG) PO SCH (05:51)
[2021-07-04] MEDS: HumaLOG INSULIN (NovoLOG) PER UNIT SC SCH ×2 (07:30→11:50)
[2021-07-04 08:00] VITALS: BP 139/77
[2021-07-04] MEDS ORDERED: BUDESONIDE 180MCG INHALER (PULMICORT FLEXHALER) INH SCH (08:00)
[2021-07-04] MEDS: GABAPENTIN 400MG CAP PO SCH (08:39)
[2021-07-04] MEDS: ASPIRIN 81 MG CHEW TABLET PO SCH (08:41)
[2021-07-04] MEDS: ATORVASTATIN 20 MG TAB PO SCH (08:41)
[2021-07-04] MEDS: BARICITINIB 2MG TABLET (OLUMIANT) FOR EUA PO SCH (08:41)
[2021-07-04] MEDS: dexameTHASONE 4 MG/ML 1ML VIAL (J1100 PER 1MG) IV SCH (08:42)
[2021-07-04] MEDS ORDERED: PRED10TA2 PO (10:15)
[2021-07-04 12:00] VITALS: BP 127/68
[2021-07-04] MEDS ORDERED: LEVALBUTEROL HFA 45MCG/ACT 15 GM INHALER INH SCH (14:00)
--- NOTE | 2021-07-04 23:04 | DS.PDOC ---
Discharge Summary General Date of Admission Jul 02, 2021 at 20:49 Date of Discharge 07/04/21 Attending Physician: Xiomara Munoz MD Discharge Summary PROCEDURES PERFORMED DURING STAY: None ADMITTING DIAGNOSES: #Sepsis/Acute hypoxic respiratory failure secondary COVID-19 infection #L chest pain #Hemoptysis, chronic #R arm parasthesia s/p R clavicle fx/R neck painate to severe L4/L5 spinal canal stenosis/radiculopathy radiating down L leg # NIDDM wit neuropathy # hx of CVA w/o residual deficits/ DLP # Panic disorder with history of depression # GERD # Chronic Asthma # Hypothyroidism # Obesity DISCHARGE DIAGNOSES: #Acute hypoxic respiratory failure secondary COVID-19 infection, resolved sepsis #L chest pain likely musculoskeletal #Hemoptysis, chronic #R arm parasthesia s/p R clavicle fx/R neck pain to severe L4/L5 spinal canal stenosis/radiculopathy radiating down L leg # NIDDM wit neuropathy # hx of CVA w/o residual deficits/ DLP # Panic disorder with history of depression # GERD # Chronic Asthma # Hypothyroidism # Obesity COMPLICATIONS/CHIEF COMPLAINT: Covid19. HISTORY OF PRESENT ILLNESS: Ms. Bradshaw is a pleasant 40-year-old female with a past medical history of laryngeal cancer status post laryngectomy and radiation 2001, status post decannulated stoma, type 2 diabetes, CVA 2015 with no residual deficits, panic disorder, depression, asthma, hypothyroidism. She presents to the ER with a 3- day history of shortness of breath. Her recently tested positive for Covid. [facility] is positive for COVID-19 in the ER. Patient was hypoxic to the mid 80s and required trach collar at 15 L/min. She is presently saturating 96% on the trach collar. It is important to note that the patient has limited ability to communicate although she speaks through her trach and some other words and her meaning are able to be determined if she speaks very slowly. At this time patient appears to be very anxious and has pressured speech therefore it is difficult to understand her entirely. Much of the prior medical history was obtained from previous records. She states that her shortness of breath is mildly improved. Of concern, she reports having hemoptysis for the past 3 years and has not followed up with a regulatory law specialist or an ENT surgeon. Patient also continues to report left-sided chest pressure unrelated to breathing. HOSPITAL COURSE: Initial troponins in the ER were negative. EKG did not show ischemic changes. He does not have leukocytosis but is febrile to 100.8. Her initial arterial blood gas showed a PO2 of 48.9 with a pH of 7.441 and bicarb of 26.8. Concern that this was a venous blood gas is that of an ABG. Repeat ABG showing improvement in PO2 at 69.2 with a pH of 7.387 and a CO2 of 47.0. She has numerous chronic complaints including right shoulder pain, right arm paresthesia with right neck pain, as well as repeated periods of unsteady gait and falls with left-sided lumbar radiculopathy radiating down the left posterior leg. 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 These findings are noted on MRI lumbar spine on 01/04/2021. Patient does not report acutely worsening symptoms and states that these changes are chronic. Patient was admitted to [facility] for PCU status hospitalist service. During her hospital stay patient was treated for the following: Sepsis/Acute hypoxic respiratory failure secondary COVID-19 infection-resolved -On admission desaturated to mid 80s, was placed on trach collar at 15 LPM, improved to 95%. -Over the course of her hospital stay the patient was taken off of the trach collar and supplemental oxygen and she remained saturating above 89-90% on room air. Patient states her baseline is 8892% on room air. -She was treated with Decadron, remdesivir and baricitinib -D-dimer low, procalcitonin low -Will be discharged home with prednisone taper over the next 10 days, home respiratory medications -If she should develop increased shortness of breath or chest pain the patient should be seen immediately by medical professional. Hyperglycemia, diabetes mellitus -Uncontrolled secondary to high-dose steroids -We will be sending home with a tapering dose of prednisone. -Continue with home antihyperglycemic meds, encouraged to check fingersticks 3 times a day. -If blood sugars remain above 300 the patient is to report this to her primary care who may have to add additional treatment -Consistent carb diet L chest pain likely musculoskeletal secondary to increased respiratory distress - initial cardiac markers negative - no ischemic changes on EKG -Troponin negative - CTA chest negative for PE - bilateral LE venous duplex negative for DVT Asthma, not currently in exacerbation -Stable on room air -Follow-up with PCP -Continue home med Chronic hemoptysis - chronic per patient, ongoing x 3 years - does not follow up with pulmonary or ENT - CXR reviewed above, no acute findings - use humidified O2 - previously D/w ENT Dr. David, agrees with plan - may require bronchoscopy in future - no anemia on CBC. 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 -Follow-up outpatient with orthopedics Hx of CVA w/o residual deficits/ DLP -c/w ASA and Statin Panic disorder with history of depression -Stable -c/w Duloxetine, hydroxyzine GERD - Omeprazole # Hypothyroidism - TSH 48.5 - T4 0.28 - takes levothyroxine 200 mcg daily - increased dose slightly to 220 mcg daily - will need to repeat TFTs in 4-6 weeks. # Obesity Complicates care DISCHARGE MEDICATIONS: Please see below. ALLERGIES: Please see below. PHYSICAL EXAMINATION ON DISCHARGE: Vital Signs: reviewed General: NAD, sitting up in bed, awake alert oriented x3 HEENT: NC/AT, EOMI Neck: supple, no masses, trach stoma appears clean Chest: Fair inspiratory effort, no crackles, no rales. clear to auscultation bilaterally Heart: +S1S2, RRR, no murmurs, rubs or gallops Abd: soft, NT, ND, +BS, no organomegaly, obese Ext: no edema, no cyanosis or clubbing Skin: no rashes, intact MSK: full ROM at large joints Neuro: no gross focal deficits, cranial nerves II-XII intact Psych: Mood and affect appropriate LABORATORY DATA: Please see below. IMAGING: CTA chest: 1. No evidence of acute pulmonary embolus. 2. No other acute or concerning focal intrathoracic abnormality. PROGNOSIS: Good ACTIVITY: As tolerated DIET: consistent carb DISPOSITION: 01 Home, Self-Care. DISCHARGE INSTRUCTIONS / ITEMS TO FOLLOWUP ON ON OUTPATIENT: 1. Please follow up with your PCP within 1-2 weeks after discharge. 2. If you should have increased shortness of breath, chest pain, fevers, chills let a medical professional know immediately. DISCHARGE CONDITION: Stable TIME SPENT ON DISCHARGE: 35 minutes. Vital Signs/I&Os Vital Signs Date Time Temp Pulse Resp B/P (MAP) Pulse Ox O2 Delivery O2 Flow Rate FiO2 07/04/21 12:00 5.0 28 07/04/21 12:00 72 20 127/68 (87) 91 Room Air 07/04/21 08:00 97.8 I&O- Last 24 Hours up to 6 AM 07/04/21 06:00 Intake Total 2190 ml Output Total 700 ml Balance 1490 ml Laboratory Data Labs 24H Laboratory Tests 2 07/04/21 04:50: Immature Granulocyte % (Auto) 0.3, Neutrophils (%) (Auto) 60.4, Lymphocytes (%) (Auto) 23.3L, Monocytes (%) (Auto) 15.6H, Eosinophils (%) (Auto) 0.2, Basophils (%) (Auto) 0.2, Neutrophils # (Auto) 5.4, Lymphocytes # (Auto) 2.1, Monocytes # (Auto) 1.4H, Eosinophils # (Auto) 0.0, Basophils # (Auto) 0.0, Nucleated Red Blood Cells % (auto) 0.0, Anion Gap 7L, Glomerular Filtration Rate > 60.0, Calcium Level 8.7, Total Bilirubin 0.2, Aspartate Amino Transf (AST/SGOT) 36, Alanine Aminotransferase (ALT/SGPT) 39, Alkaline Phosphatase 89, Total Protein 7.0, Albumin 3.1L, Albumin/Globulin Ratio 0.8L 07/04/21 11:40: Bedside Glucose (Misc Panel) 341H CBC/BMP Laboratory Tests 07/04/21 04:50 FSBS Laboratory Tests Test 07/04/21 11:40 Range/Units Bedside Glucose (Misc Panel) 341 70-105 MG/DL Microbiology Microbiology 07/02/21 Respiratory Virus Panel (PCR) (JUAN PABLO) - Final, Complete SARS-CoV-2 (COVID 19) 07/02/21 Blood Culture - Preliminary, Resulted No Growth after 48 hours. All Specime... 07/02/21 Blood Culture - Preliminary, Resulted No Growth after 48 hours. All Specime... Discharge Medications Scheduled Aspirin (Aspirin) 81 Mg Tab.chew, 81 MG PO DAILY, (Reported) Atorvastatin Calcium (Atorvastatin Calcium) 20 Mg Tablet, 20 MG PO DAILY, (Repor cristy) Budesonide (Budesonide) 0.5 Mg/2 Ml Ampul.neb, 0.5 MG NEB BID, (Reported) Duloxetine Hcl (Duloxetine HCl) 60 Mg Capsule.dr, 60 MG PO QHS, (Reported) Gabapentin (Gabapentin) 600 Mg Tab, 1,200 MG PO TID, (Reported) Levothyroxine Sodium (Levothyroxine Sodium) 200 Mcg Tablet, 200 MCG PO DAILY, (Reported) Metformin HCl (Metformin HCl) 1,000 Mg Tablet, 1,000 MG PO BID, (Reported) Montelukast Sodium (Montelukast Sodium) 10 Mg Tablet, 10 MG PO QHS, (Reported) Omeprazole (Omeprazole) 40 Mg Cap, 40 MG PO QHS, (Reported) Prednisone (Prednisone) 10 Mg Tablet, 60 MG PO TAPER Take 4 tabs daily x 3 days, then 3 tabs daily x 3 days, then 2 tabs daily x 3 days, then 1 tab daily x 3 days and stop Scheduled PRN Acetaminophen (Tylenol) 325 Mg Tablet, 650 MG PO Q4H PRN for PAIN / FEVER, (Reported) Albuterol Sulfate (Albuterol Sulfate Hfa) 8.5 Gm Hfa.aer.ad, 2 PUFFS INH Q4-6HP PRN for SHORTNESS OF BREATH, (Reported) Cyclobenzaprine HCl (Cyclobenzaprine HCl) 10 Mg Tablet, 10 MG PO TID PRN for MUSCLE SPASMS, (Reported) Fluticasone Propionate (Flonase Allergy Relief) 9.9 Ml Edwards.susp, 1 SPRAY NA BID PRN for NASAL CONGESTION, (Reported) Hydroxyzine HCl (Hydroxyzine HCl) 25 Mg Tablet, 25 MG PO QID PRN for ANXIETY, (Reported) Ipratropium/Albuterol Sulfate (Iprat-Albut 0.5-3(2.5) mg/3 ml) 1 Harriet Harriet, 3 ML INH QID PRN for SHORTNESS OF BREATH, (Reported) Miscellaneous Medications [Med Rec Comment] , (Reported) PT. STATES PT HAS NOT TAKEN ANY MEDS IN 3 DAYS OR MORE DUE TO BEING ILL Allergies Coded Allergies: cefuroxime (Verified Allergy, Intermediate, RASH/HIVES, 09/25/20) moxifloxacin (Verified Allergy, Intermediate, HIVES, 09/25/20) sulfamethoxazole (Verified Allergy, Intermediate, HIVES, 09/25/20) trimethoprim (Verified Allergy, Intermediate, HIVES, 09/25/20) Xiomara Munoz MD Jul 04, 2021 23:04
== END 2021-07-04 12:48 | disposition home or self-care (01) | DRG 720 ==
LOC: M ED 18:14 → EDBD 18:14 → M ED INP 20:49 → M ICU 22:22
PROVIDERS: ADMIT Family Medicine; ATTEND Internal Medicine
DX: A41.9 Sepsis, unspecified organism (principal); U07.1 COVID-19; J96.01 Acute respiratory failure with hypoxia; K92.0 Hematemesis; E11.40 Type 2 diabetes mellitus with diabetic neuropathy, unspecified; M48.02 Spinal stenosis, cervical region; Z68.41 Body mass index [BMI] 40.0-44.9, adult; J45.909 Unspecified asthma, uncomplicated; E66.9 Obesity, unspecified; K21.9 Gastro-esophageal reflux disease without esophagitis; E03.9 Hypothyroidism, unspecified; Z85.21 Personal history of malignant neoplasm of larynx; Z79.82 Long term (current) use of aspirin; Z79.899 Other long term (current) drug therapy; Z88.8 Allergy status to other drugs, medicaments and biological substances; Z88.2 Allergy status to sulfonamides; Z86.73 Personal history of transient ischemic attack (TIA), and cerebral infarction without residual deficits; E78.5 Hyperlipidemia, unspecified; F17.200 Nicotine dependence, unspecified, uncomplicated

== ENCOUNTER 2021-08-27 14:08 | Inpatient (IN) | payer OTHER ==
[~2021-08-27] VITALS: Ht 180.3 cm; Wt 114.0 kg
[~2021-08-27 14:08] MED LIST changes: +ALBU8.5H INH; +ASPI81CH33 PO; -CEFD1CAP8 PO; +CEFD300C41 PO; +MED REC COMMENT; -MONT10TA10 PO; +MONT10TA97 PO
[2021-08-27] MEDS ORDERED: dexameTHASONE 20MG/5ML VIAL (J1100 PER 1MG) IV ONE (14:25)
[2021-08-27] MEDS: IPRATROPIUM 0.5MG/ALBUTEROL 2.5MG INH SOL UD 3ML (DUONEB) NEB PRN ×3 (14:28→15:30)
[2021-08-27 14:46] LABS: ABG BASE EXCESS 2.3 (-2.0-2.0); ABG HCO3 26.9 MEQ/L (22.0-26.0); ABG O2 SATURATION 84.9 % (95.0-99.0); ABG PARTIAL PRESSURE CO2 41.8 mmHg (35.0-45.0); ABG STANDARD HCO3 26.2 MEQ/L (22.0-26.0); ABG TOTAL CO2 28.2 MEQ/L (22.0-29.0); ABG pH (ARTERIAL) 7.427 UNITS (7.350-7.450)
[2021-08-27 14:54] LABS: BASO # 0.1 10^3/uL (0.0-0.2); BASO % 0.3 % (0.0-1.0); EOS # 0.2 10^3/uL (0.0-0.5); HEMOGLOBIN 14.9 g/dl (12.0-15.5); LYMPH # 1.3 10^3/uL (1.5-5.0); LYMPH % 6.2 % (24.0-44.0); MEAN CORPUSCULAR HEMOGLOBIN 24.6 pg (27.0-33.0); MEAN CORPUSCULAR HGB CONC 30.4 g/dl (32.0-36.5); MEAN CORPUSCULAR VOLUME 80.9 fl (80.0-96.0); MONO % 7.4 % (2.0-8.0); NEUTROPHILS % 84.7 % (36.0-66.0); PLATELET COUNT, AUTOMATED 408 10^3/uL (150-450); RED BLOOD COUNT 6.06 10^6/uL (4.00-5.40); WHITE BLOOD COUNT 21.2 10^3/uL (4.0-10.0)
[2021-08-27 15:16] LABS: BLOOD UREA NITROGEN 5 MG/DL (7-18); CALCIUM LEVEL 9.2 MG/DL (8.5-10.1); CARBON DIOXIDE LEVEL 27 MEQ/L (21-32); CHLORIDE LEVEL 95 MEQ/L (98-107); CREATININE FOR GFR 0.64 MG/DL (0.55-1.30); GLOMERULAR FILTRATION RATE > 60.0 (>58); GLUCOSE, FASTING 219 MG/DL (70-100); POTASSIUM SERUM 4.3 MEQ/L (3.5-5.1); SODIUM LEVEL 131 MEQ/L (136-145)
[2021-08-27 15:18] LABS: ABG PARTIAL PRESSURE O2 44.5 mmHg (75.0-100.0)
[2021-08-27 15:36] LABS: MONO # 1.6 10^3/uL (0.0-0.8)
[2021-08-27] MEDS ORDERED: DEXTROSE 50% 50 ML SYRINGE IV PRN (15:50)
[2021-08-27] MEDS ORDERED: GLUCOSE 4GM CHEW TABLET PO PRN (15:50)
[2021-08-27] MEDS ORDERED: GLUCAGON INJ 1MG VIAL SC PRN (15:50)
[2021-08-27] MEDS ORDERED: ONDANSETRON 4MG/2ML VIAL IV PRN (15:55)
[2021-08-27] MEDS ORDERED: MELO15TA28 PO (16:07)
[2021-08-27] MEDS ORDERED: LEVO25TA5 PO (16:07)
[2021-08-27] MEDS ORDERED: HOME MED LIST COMPLETE! XX SCH (16:50)
[2021-08-27 17:00] VITALS: BP 108/71
[2021-08-27] MEDS ORDERED: FLUTICASONE PROP 0.05% NASAL SPRAY 16 GM (FLONASE) PRN (17:40)
[2021-08-27] MEDS ORDERED: ACETAMINOPHEN TAB 650MG DOSE (2X325MG) PO PRN (17:40)
[2021-08-27] MEDS ORDERED: hydrOXYzine 25 MG TAB PO PRN (17:40)
[2021-08-27] MEDS: HumaLOG INSULIN (NovoLOG) PER UNIT SC SCH ×2 (17:47→20:40)
[2021-08-27] MEDS: PIPERACILLIN/TAZOBACTAM SOD 3.375 GM in D5W MINI-BAG PLUS 50 ML IV SCH (17:47)
[2021-08-27] MEDS: MELOXICAM (MOBIC) 7.5 MG TAB PO SCH (18:50)
[2021-08-27] MEDS: DOCUSATE SODIUM 100MG CAPSULE PO SCH (20:39)
[2021-08-27] MEDS: GABAPENTIN 300 MG CAP PO SCH (20:39)
[2021-08-27] MEDS: OMEPRAZOLE 20MG CAP PO SCH (20:39)
[2021-08-27] MEDS: DULoxetine 30MG CAPSULE (CYMBALTA) PO SCH (20:39)
[2021-08-27] MEDS: MONTELUKAST 10 MG TAB PO SCH (20:39)
[2021-08-27] MEDS: NICOTINE 21MG/24HR 1 EA TRANSDERMAL TD PRN (20:39)
[2021-08-27] MEDS: zolPIDEM TARTRATE 5 MG TAB PO SCH ×2 (20:40→20:49)
[2021-08-27] MEDS: IPRATROPIUM 0.5MG/ALBUTEROL 2.5MG INH SOL UD 3ML (DUONEB) NEB SCH (20:56)
[2021-08-27] MEDS: BUDESONIDE 0.5 MG/2 ML INHALATION SUSPENSION NEB SCH (20:56)
[2021-08-27 22:00] VITALS: BP 154/84
[2021-08-27] MEDS: ALBUTEROL SULFATE 2.5 MG/0.5 ML INH NEB SOLN NEB PRN (23:21)
[2021-08-28] MEDS ORDERED: methylPREDNISolone 125MG 2ML VIAL IV SCH
[2021-08-28] MEDS: PIPERACILLIN/TAZOBACTAM SOD 3.375 GM in D5W MINI-BAG PLUS 50 ML IV SCH ×4 (00:21→18:04)
[2021-08-28] MEDS: IPRATROPIUM 0.5MG/ALBUTEROL 2.5MG INH SOL UD 3ML (DUONEB) NEB SCH ×4 (02:57→20:31)
[2021-08-28 06:00] VITALS: BP 103/67
[2021-08-28] MEDS: LEVOTHYROXINE 25MCG TABLET (0.025MG) PO SCH (06:06)
[2021-08-28] MEDS: LEVOTHYROXINE 100MCG TABLET (0.1MG) PO SCH (06:06)
[2021-08-28] MEDS: BUDESONIDE 0.5 MG/2 ML INHALATION SUSPENSION NEB SCH ×2 (07:17→20:19)
[2021-08-28 07:24] LABS: HEMATOCRIT 46.2 % (36.0-47.0); HEMOGLOBIN 14.3 g/dl (12.0-15.5); MEAN CORPUSCULAR HEMOGLOBIN 25.1 pg (27.0-33.0); MEAN CORPUSCULAR VOLUME 81.1 fl (80.0-96.0); PLATELET COUNT, AUTOMATED 392 10^3/uL (150-450); WHITE BLOOD COUNT 16.7 10^3/uL (4.0-10.0)
[2021-08-28] MEDS ORDERED: MORPHINE 2 MG/ML 1ML VIAL (J2270) IV PRN (08:10)
[2021-08-28 08:45] LABS: BLOOD UREA NITROGEN 9 MG/DL (7-18); CALCIUM LEVEL 8.3 MG/DL (8.5-10.1); CARBON DIOXIDE LEVEL 28 MEQ/L (21-32); CHLORIDE LEVEL 93 MEQ/L (98-107); CREATININE FOR GFR 0.94 MG/DL (0.55-1.30); GLOMERULAR FILTRATION RATE > 60.0 (>58); GLUCOSE, FASTING 355 MG/DL (70-100); SODIUM LEVEL 128 MEQ/L (136-145)
[2021-08-28] MEDS: ASPIRIN 81 MG CHEW TABLET PO SCH (08:52)
[2021-08-28] MEDS: GABAPENTIN 300 MG CAP PO SCH ×3 (08:52→21:12)
[2021-08-28] MEDS: ATORVASTATIN 20 MG TAB PO SCH (08:53)
[2021-08-28] MEDS: predniSONE 20 MG TAB PO SCH (08:56)
[2021-08-28] MEDS: DOCUSATE SODIUM 100MG CAPSULE PO SCH ×2 (08:58→21:12)
[2021-08-28] MEDS: ENOXAPARIN 40MG/0.4ML SYRINGE (J1650 PER 10MG) SC SCH (08:58)
[2021-08-28] MEDS: HumaLOG INSULIN (NovoLOG) PER UNIT SC SCH ×4 (08:59→21:13)
[2021-08-28] MEDS: MELOXICAM (MOBIC) 7.5 MG TAB PO SCH (09:00)
[2021-08-28 14:12] VITALS: BP 137/88
[2021-08-28 15:04] LABS: MAGNESIUM LEVEL 1.9 MG/DL (1.7-2.2)
[2021-08-28] MEDS: CYCLOBENZAPRINE 10MG TABLET PO PRN (18:08)
[2021-08-28] MEDS: ALBUTEROL SULFATE 2.5 MG/0.5 ML INH NEB SOLN NEB PRN (20:19)
[2021-08-28 20:43] VITALS: BP 135/83
[2021-08-28] MEDS ORDERED: RAMELTEON 8 MG TAB (ROZEREM) PO SCH (21:00)
[2021-08-28] MEDS ORDERED: LEVEMIR (INSULIN DETEMIR) 1 UNITS/0.01ML SC SCH (21:00)
[2021-08-28] MEDS: OMEPRAZOLE 20MG CAP PO SCH (21:12)
[2021-08-28] MEDS: DULoxetine 30MG CAPSULE (CYMBALTA) PO SCH (21:12)
[2021-08-28] MEDS: MONTELUKAST 10 MG TAB PO SCH (21:13)
[2021-08-28] MEDS: NICOTINE 21MG/24HR 1 EA TRANSDERMAL TD PRN (21:25)
[2021-08-29] MEDS: PIPERACILLIN/TAZOBACTAM SOD 3.375 GM in D5W MINI-BAG PLUS 50 ML IV SCH ×2 (00:51→05:56)
[2021-08-29] MEDS: IPRATROPIUM 0.5MG/ALBUTEROL 2.5MG INH SOL UD 3ML (DUONEB) NEB SCH ×2 (02:46→07:22)
[2021-08-29 05:35] VITALS: BP 126/90
[2021-08-29] MEDS: LEVOTHYROXINE 25MCG TABLET (0.025MG) PO SCH (05:56)
[2021-08-29] MEDS: LEVOTHYROXINE 100MCG TABLET (0.1MG) PO SCH (05:56)
[2021-08-29] MEDS: CYCLOBENZAPRINE 10MG TABLET PO PRN (05:56)
[2021-08-29] MEDS: BUDESONIDE 0.5 MG/2 ML INHALATION SUSPENSION NEB SCH (07:22)
[2021-08-29] MEDS ORDERED: NS 1,000 ML IV SCH (07:30)
[2021-08-29 08:00] VITALS: BP 127/85
[2021-08-29 08:25] LABS: NT-PRO BNP 399 PG/ML (<125)
[2021-08-29] MEDS: HumaLOG INSULIN (NovoLOG) PER UNIT SC SCH ×2 (08:30→12:00)
[2021-08-29] MEDS: DOCUSATE SODIUM 100MG CAPSULE PO SCH (08:31)
[2021-08-29] MEDS: ASPIRIN 81 MG CHEW TABLET PO SCH (08:31)
[2021-08-29] MEDS: ATORVASTATIN 20 MG TAB PO SCH (08:31)
[2021-08-29] MEDS: MELOXICAM (MOBIC) 7.5 MG TAB PO SCH (08:31)
[2021-08-29] MEDS: GABAPENTIN 300 MG CAP PO SCH (08:31)
[2021-08-29] MEDS: predniSONE 20 MG TAB PO SCH (08:31)
[2021-08-29] MEDS ORDERED: LEVEMIR (INSULIN DETEMIR) 1 UNITS/0.01ML SC SCH (09:00)
[2021-08-29 10:34] LABS: ALBUMIN 3.2 GM/DL (3.2-5.2); ALT/SGPT 19 U/L (12-78); BILIRUBIN,TOTAL 0.3 MG/DL (0.2-1.0); BLOOD UREA NITROGEN 11 MG/DL (7-18); CALCIUM LEVEL 9.2 MG/DL (8.5-10.1); CARBON DIOXIDE LEVEL 26 MEQ/L (21-32); CHLORIDE LEVEL 98 MEQ/L (98-107); CREATININE FOR GFR 0.69 MG/DL (0.55-1.30); GLOMERULAR FILTRATION RATE > 60.0 (>58); GLUCOSE, FASTING 175 MG/DL (70-100); POTASSIUM SERUM 3.9 MEQ/L (3.5-5.1); SODIUM LEVEL 133 MEQ/L (136-145); TOTAL PROTEIN 7.3 GM/DL (6.4-8.2)
[2021-08-29 10:34] LABS: MEAN CORPUSCULAR HEMOGLOBIN 24.9 pg (27.0-33.0); MEAN CORPUSCULAR HGB CONC 30.2 g/dl (32.0-36.5); MEAN CORPUSCULAR VOLUME 82.2 fl (80.0-96.0); PLATELET COUNT, AUTOMATED 404 10^3/uL (150-450); RED BLOOD COUNT 5.23 10^6/uL (4.00-5.40); WHITE BLOOD COUNT 17.5 10^3/uL (4.0-10.0)
[2021-08-29] MEDS: ENOXAPARIN 40MG/0.4ML SYRINGE (J1650 PER 10MG) SC SCH (10:42)
[2021-08-29] MEDS ORDERED: ALB2.5NEB NEB (12:27)
[2021-08-29] MEDS ORDERED: PRED20TA PO (12:27)
[2021-08-29] MEDS ORDERED: LEVO250T3 PO (12:32)
[2021-08-29] MEDS ORDERED: FOSF3PAC2 PO (12:50)
[2021-08-29 13:55] VITALS: BP 162/102
[2021-08-29] MEDS ORDERED: FOSFOMYCIN TROMETHAMINE 3 GM POWDER PACKET (MONUROL) PO ONE (15:00)
== END 2021-08-29 14:43 | disposition home or self-care (01) | DRG 133 ==
LOC: EDBD 14:08 → M ED 14:08 → M ED INP 15:47 → M MS5PR 17:00
PROVIDERS: ADMIT Family Medicine; ATTEND Internal Medicine
DX: J96.01 Acute respiratory failure with hypoxia (principal); E87.1 Hypo-osmolality and hyponatremia; J45.901 Unspecified asthma with (acute) exacerbation; E11.9 Type 2 diabetes mellitus without complications; R11.0 Nausea; R50.9 Fever, unspecified; Z79.82 Long term (current) use of aspirin; Z79.84 Long term (current) use of oral hypoglycemic drugs; Z79.899 Other long term (current) drug therapy; Z88.1 Allergy status to other antibiotic agents; Z88.2 Allergy status to sulfonamides; Z88.8 Allergy status to other drugs, medicaments and biological substances; N39.0 Urinary tract infection, site not specified; F41.0 Panic disorder [episodic paroxysmal anxiety]; D72.829 Elevated white blood cell count, unspecified; E66.9 Obesity, unspecified; Z68.34 Body mass index [BMI] 34.0-34.9, adult

== ENCOUNTER 2021-12-09 12:01 | Observation (INO) | payer OTHER ==
[~2021-12-09] VITALS: Ht 180.3 cm; Wt 115.5 kg
[~2021-12-09 12:01] MED LIST changes: +ALB2.5NEB NEB; +FOSF3PAC2 PO; +LEVO250T3 PO; +LEVO25TA5 PO
[2021-12-09] MEDS: COMBIVENT RESPIMAT 100-20MCG INHALER 4GM INH SCH ×3 (12:43→13:20)
[2021-12-09] MEDS ORDERED: dexameTHASONE 20MG/5ML VIAL (J1100 PER 1MG) IV ONE (12:50)
[2021-12-09 13:20] VITALS: O2SAT 91
[2021-12-09 13:42] LABS: BASO # 0.1 10^3/uL (0.0-0.2); BASO % 0.7 % (0.0-1.0); EOS # 0.4 10^3/uL (0.0-0.5); EOS % 3.3 % (0.0-3.0); HEMOGLOBIN 15.2 g/dl (12.0-15.5); LYMPH # 3.7 10^3/uL (1.5-5.0); LYMPH % 32.5 % (24.0-44.0); MEAN CORPUSCULAR HEMOGLOBIN 25.2 pg (27.0-33.0); MEAN CORPUSCULAR HGB CONC 31.7 g/dl (32.0-36.5); MEAN CORPUSCULAR VOLUME 79.6 fl (80.0-96.0); MONO # 0.8 10^3/uL (0.0-0.8); MONO % 7.4 % (2.0-8.0); NEUTROPHILS # 6.3 10^3/uL (1.5-8.5); NEUTROPHILS % 55.7 % (36.0-66.0); PLATELET COUNT, AUTOMATED 348 10^3/uL (150-450); RED BLOOD COUNT 6.03 10^6/uL (4.00-5.40); WHITE BLOOD COUNT 11.4 10^3/uL (4.0-10.0)
[2021-12-09 14:10] LABS: BLOOD UREA NITROGEN 9 MG/DL (7-18); CALCIUM LEVEL 9.5 MG/DL (8.5-10.1); CARBON DIOXIDE LEVEL 30 MEQ/L (21-32); CHLORIDE LEVEL 97 MEQ/L (98-107); CREATININE FOR GFR 0.97 MG/DL (0.55-1.30); GLOMERULAR FILTRATION RATE > 60.0 (>58); GLUCOSE, FASTING 172 MG/DL (70-100); POTASSIUM SERUM 4.3 MEQ/L (3.5-5.1); SODIUM LEVEL 132 MEQ/L (136-145)
[2021-12-09] MEDS ORDERED: ISOVUE-370 76% 100ML VIAL As Ordered ONE (14:18)
[2021-12-09] MEDS ORDERED: ALBUTEROL SULFATE 2.5 MG/0.5 ML INH NEB SOLN NEB PRN (16:10)
[2021-12-09] MEDS ORDERED: GLUCOSE 4GM CHEW TABLET PO PRN (16:20)
[2021-12-09] MEDS ORDERED: GLUCAGON INJ 1MG VIAL SC PRN (16:20)
[2021-12-09] MEDS ORDERED: DEXTROSE 50% 50 ML SYRINGE IV PRN (16:20)
[2021-12-09] MEDS ORDERED: HOME MED LIST COMPLETE! XX SCH (16:30)
[2021-12-09] MEDS ORDERED: FLUTICASONE PROP 0.05% NASAL SPRAY 16 GM (FLONASE) PRN (16:45)
[2021-12-09] MEDS ORDERED: CYCLOBENZAPRINE 10MG TABLET PO PRN (16:45)
[2021-12-09] MEDS ORDERED: hydrOXYzine 25 MG TAB PO PRN (16:45)
[2021-12-09] MEDS ORDERED: ACETAMINOPHEN TAB 650MG DOSE (2X325MG) PO PRN (16:45)
[2021-12-09] MEDS ORDERED: NICOTINE 14 MG/24 HR TRANSDERMAL TD ONE (16:50)
[2021-12-09] MEDS: INSULIN LISPRO (NovoLOG) PER UNIT SC SCH (17:30)
[2021-12-09 17:52] LABS: HEMOGLOBIN A1c 8.9 %
[2021-12-09 17:59] LABS: RSV AMPLIFICATION NEGATIVE (NEGATIVE)
[2021-12-09] MEDS ORDERED: methylPREDNISolone 125MG 2ML VIAL IV SCH (18:00)
[2021-12-09] MEDS ORDERED: LORazepam 2 MG/ML VIAL IV STA (18:06)
[2021-12-09 19:41] LABS: ALBUMIN 4.1 GM/DL (3.2-5.2); ALT/SGPT 21 U/L (12-78); BILIRUBIN,TOTAL 0.6 MG/DL (0.2-1.0); BLOOD UREA NITROGEN 10 MG/DL (7-18); CALCIUM LEVEL 9.8 MG/DL (8.5-10.1); CARBON DIOXIDE LEVEL 28 MEQ/L (21-32); CHLORIDE LEVEL 97 MEQ/L (98-107); CREATININE FOR GFR 0.89 MG/DL (0.55-1.30); GLOMERULAR FILTRATION RATE > 60.0 (>58); GLUCOSE, FASTING 206 MG/DL (70-100); POTASSIUM SERUM 4.2 MEQ/L (3.5-5.1); SODIUM LEVEL 134 MEQ/L (136-145)
[2021-12-09] MEDS: IPRATROPIUM 0.5MG/ALBUTEROL 2.5MG INH SOL UD 3ML (DUONEB) NEB SCH (20:00)
[2021-12-09] MEDS ORDERED: cefTRIAXone SOD 1 GM in D5W MINI-BAG PLUS 50 ML IV SCH (20:00)
[2021-12-09] MEDS: BUDESONIDE 0.5 MG/2 ML INHALATION SUSPENSION INH SCH (20:00)
[2021-12-09] MEDS ORDERED: AZITHROMYCIN INJ 500 MG, VIAL MATE ADAPTER 1 EACH in NS 250 ML IV SCH (21:00)
[2021-12-09] MEDS ORDERED: DULoxetine 30MG CAPSULE (CYMBALTA) PO SCH (21:00)
[2021-12-09] MEDS ORDERED: OMEPRAZOLE 20MG CAP PO SCH (21:00)
[2021-12-09] MEDS ORDERED: INSULIN LISPRO (NovoLOG) PER UNIT SC SCH (21:00)
[2021-12-09] MEDS ORDERED: guaiFENesin ER 600 MG TAB PO SCH (21:00)
[2021-12-09] MEDS ORDERED: MONTELUKAST 10 MG TAB PO SCH (21:00)
[2021-12-09 22:25] VITALS: BP 122/85
[2021-12-09] MEDS ORDERED: LORazepam 2 MG/ML VIAL IV PRN (23:30)
[2021-12-09] MEDS: GABAPENTIN 300 MG CAP PO SCH (23:58)
[2021-12-09] MEDS: methylPREDNISolone 125MG 2ML VIAL IV SCH (23:59)
[2021-12-10] MEDS ORDERED: NICOTINE 14 MG/24 HR TRANSDERMAL TD ONE
[2021-12-10] MEDS: NS 1,000 ML IV SCH ×3 (00:20→15:12)
[2021-12-10] MEDS: LEVEMIR (INSULIN DETEMIR) 1 UNITS/0.01ML SC SCH ×2 (00:34→10:18)
[2021-12-10 00:44] VITALS: BP 111/70
[2021-12-10] MEDS ORDERED: guaiFENesin SYRUP 200MG 10ML UDC PO PRN (00:50)
[2021-12-10] MEDS: IPRATROPIUM 0.5MG/ALBUTEROL 2.5MG INH SOL UD 3ML (DUONEB) NEB SCH ×4 (02:00→19:54)
[2021-12-10 05:22] VITALS: BP 105/73
[2021-12-10] MEDS ORDERED: LEVOTHYROXINE 100MCG TABLET (0.1MG) PO SCH (06:00)
[2021-12-10] MEDS ORDERED: LEVOTHYROXINE 25MCG TABLET (0.025MG) PO SCH (06:00)
[2021-12-10] MEDS ORDERED: LORazepam 2 MG/ML VIAL IV PRN (07:15)
[2021-12-10 08:00] VITALS: BP 134/56
[2021-12-10] MEDS: BUDESONIDE 0.5 MG/2 ML INHALATION SUSPENSION INH SCH ×2 (08:04→19:54)
[2021-12-10 08:43] LABS: HEMATOCRIT 46.4 % (36.0-47.0); HEMOGLOBIN 14.4 g/dl (12.0-15.5); MEAN CORPUSCULAR HEMOGLOBIN 24.7 pg (27.0-33.0); MEAN CORPUSCULAR VOLUME 79.6 fl (80.0-96.0); PLATELET COUNT, AUTOMATED 370 10^3/uL (150-450); RED BLOOD COUNT 5.83 10^6/uL (4.00-5.40); WHITE BLOOD COUNT 11.3 10^3/uL (4.0-10.0)
[2021-12-10] MEDS ORDERED: MELOXICAM (MOBIC) 7.5 MG TAB PO SCH (09:00)
[2021-12-10] MEDS ORDERED: ATORVASTATIN 20 MG TAB PO SCH (09:00)
[2021-12-10] MEDS ORDERED: ASPIRIN 81 MG CHEW TABLET PO SCH (09:00)
[2021-12-10] MEDS ORDERED: ENOXAPARIN 40MG/0.4ML SYRINGE (J1650 PER 10MG) SC SCH (09:00)
[2021-12-10 09:19] LABS: ALBUMIN 3.9 GM/DL (3.2-5.2); ALT/SGPT 19 U/L (12-78); BILIRUBIN,TOTAL 0.6 MG/DL (0.2-1.0); BLOOD UREA NITROGEN 12 MG/DL (7-18); C REACTIVE PROTEIN QUANTITATIV 0.81 MG/DL (0.00-0.30); CALCIUM LEVEL 9.5 MG/DL (8.5-10.1); CARBON DIOXIDE LEVEL 26 MEQ/L (21-32); CHLORIDE LEVEL 97 MEQ/L (98-107); CREATININE FOR GFR 1.06 MG/DL (0.55-1.30); FERRITIN 21 NG/ML (8-252); GLOMERULAR FILTRATION RATE > 60.0 (>58); GLUCOSE, FASTING 231 MG/DL (70-100); LDH LACTATE DEHYDROGENASE 176 U/L (84-246); SODIUM LEVEL 133 MEQ/L (136-145); TOTAL PROTEIN 8.5 GM/DL (6.4-8.2)
[2021-12-10 09:23] LABS: INR 1.01; PROTHROMBIN TIME 13.7 SECONDS (12.7-14.5)
[2021-12-10 09:24] LABS: PARTIAL THROMBOPLASTIN TIME 33.3 SECONDS (25.9-37.0)
[2021-12-10 09:27] LABS: D-DIMER QUANT 534.92 ng/ml (<500)
[2021-12-10] MEDS: GABAPENTIN 300 MG CAP PO SCH ×2 (10:16→17:29)
[2021-12-10] MEDS: methylPREDNISolone 125MG 2ML VIAL IV SCH (10:17)
[2021-12-10] MEDS: INSULIN LISPRO (NovoLOG) PER UNIT SC SCH ×3 (10:17→17:29)
[2021-12-10 12:00] VITALS: BP 144/91
[2021-12-10 16:00] VITALS: BP 125/82
[2021-12-10] MEDS ORDERED: CYMB1CAP4 PO (18:41)
[2021-12-10] MEDS ORDERED: PRED20TA PO (18:41)
[2021-12-10] MEDS ORDERED: AZIT500T5 PO (18:42)
[2021-12-10 20:00] VITALS: BP 114/61
[2021-12-10] MEDS ORDERED: LEVEMIR (INSULIN DETEMIR) 1 UNITS/0.01ML SC SCH ×2 (21:00)
[2021-12-10] MEDS ORDERED: DULoxetine 20 MG CAP (CYMBALTA) PO SCH (21:00)
[2021-12-11] MEDS ORDERED: LEVEMIR (INSULIN DETEMIR) 1 UNITS/0.01ML SC SCH ×2 (09:00)
[2021-12-11] MEDS ORDERED: predniSONE 20 MG TAB PO SCH (09:00)
== END 2021-12-10 22:03 | disposition left against medical advice (07) ==
LOC: EDBD 12:01 → M ED 12:01 → M ED INP 16:08 → ENRESERV 16:32 → CANRESERV 16:32 → ENRESERV 19:33 → M 4MAIN 22:05
PROVIDERS: ADMIT Internal Medicine; ATTEND Internal Medicine
DX: J96.01 Acute respiratory failure with hypoxia (principal); U07.1 COVID-19; R91.8 Other nonspecific abnormal finding of lung field; F32.89 Other specified depressive episodes; F41.8 Other specified anxiety disorders; R53.1 Weakness; R32 Unspecified urinary incontinence; E11.65 Type 2 diabetes mellitus with hyperglycemia; G47.9 Sleep disorder, unspecified; F17.200 Nicotine dependence, unspecified, uncomplicated; E87.1 Hypo-osmolality and hyponatremia; E87.8 Other disorders of electrolyte and fluid balance, not elsewhere classified; Z85.21 Personal history of malignant neoplasm of larynx; Z90.02 Acquired absence of larynx; Z93.0 Tracheostomy status; Z86.73 Personal history of transient ischemic attack (TIA), and cerebral infarction without residual deficits; E78.5 Hyperlipidemia, unspecified; R10.9 Unspecified abdominal pain; G89.29 Other chronic pain; J45.909 Unspecified asthma, uncomplicated; E03.9 Hypothyroidism, unspecified; E66.9 Obesity, unspecified; R13.10 Dysphagia, unspecified; Z79.899 Other long term (current) drug therapy; Z79.82 Long term (current) use of aspirin; Z79.2 Long term (current) use of antibiotics; Z79.890 Hormone replacement therapy; Z79.84 Long term (current) use of oral hypoglycemic drugs; Z79.52 Long term (current) use of systemic steroids; Z88.1 Allergy status to other antibiotic agents; Z88.2 Allergy status to sulfonamides
CPT/HCPCS: 36415; 36600; 71045; 71275; 80048; 80053; 82550; 82728; 82803; 83036; 83615; 84145; 85025; 85027; 85379; 85384; 85610; 85730; 86140; 87070; 87077; 87186; 87205; 87426; 87486; 87581; 87631; 87633; 87798; 93005; 94640; 96365; 96367; 96372; 96375; 96376; 97110; 97161; 99285; J0456; J0696; J1100; J1650; J1815; J2060; J2930; Q9967

== ENCOUNTER 2022-02-12 11:59 | Emergency (ER) | payer OTHER ==
[~2022-02-12] VITALS: Ht 180.3 cm; Wt 109.1 kg
[~2022-02-12 11:59] MED LIST changes: +ALBU2.5V10; +ALBU2.5V10 INH; -ALBU83IN; -ALBU83IN INH; +CYMB1CAP4 PO
[2022-02-12 12:32] VITALS: BP 109/58
== END 2022-02-12 15:35 | disposition left against medical advice (07) ==
LOC: M ED 11:59 → EDBD 11:59 → M ED 15:35
DX: Z53.21 Procedure and treatment not carried out due to patient leaving prior to being seen by health care provider (principal)

== ENCOUNTER 2022-02-14 22:06 | Emergency (ER) | payer OTHER ==
[~2022-02-14] VITALS: Ht 180.3 cm; Wt 96.8 kg
[2022-02-14 22:13] VITALS: BP 178/87
== END 2022-02-14 22:29 | disposition left against medical advice (07) ==
LOC: EDBD 22:06 → M ED 22:06
DX: Z53.29 Procedure and treatment not carried out because of patient's decision for other reasons (principal)

== ENCOUNTER 2022-03-11 06:48 | Emergency (ER) | payer OTHER ==
[~2022-03-11] VITALS: Ht 180.3 cm; Wt 96.8 kg
[~2022-03-11 06:48] MED LIST changes: -LABE100T4 PO; -LABE100T5 PO; +LABE100T6 PO; +LABE100T71 PO; +LEVO1TAB38 PO; -LEVO250T3 PO
[2022-03-11] MEDS ORDERED: MIDAZOLAM INJ 2MG/2ML VIAL (J2250 PER 1MG) IV STA (07:53)
[2022-03-11 09:38] VITALS: BP 181/92
== END 2022-03-11 10:17 | disposition home or self-care (01) ==
LOC: EDBD 06:48 → M ED 06:48
DX: M54.12 Radiculopathy, cervical region (principal); F41.9 Anxiety disorder, unspecified; E11.9 Type 2 diabetes mellitus without complications; F32.A Depression, unspecified; E07.9 Disorder of thyroid, unspecified; Z86.16 Personal history of COVID-19; Z79.899 Other long term (current) drug therapy; Z79.890 Hormone replacement therapy; Z79.84 Long term (current) use of oral hypoglycemic drugs; Z79.82 Long term (current) use of aspirin; Z88.1 Allergy status to other antibiotic agents; Z88.2 Allergy status to sulfonamides; Z88.8 Allergy status to other drugs, medicaments and biological substances; F17.200 Nicotine dependence, unspecified, uncomplicated
CPT/HCPCS: 72125; 96374; 99284; J2250

== ENCOUNTER → 2022-04-06 | Outpatient (CLI) | payer OTHER ==
[~2022-04-06] MED LIST changes: +E-Z-GAS II EFFERVESCENT PACKET (SODIUM BICARB./CITRIC ACID/SIMETHICONE) As Ordered ONE; +E-Z-HD 98% w/w 340GM SUSP BTL As Ordered ONE; +E-Z-PAQUE 96% w/w SUSP 176GM BTL As Ordered ONE
== END ==
LOC: M RAD 07:56
PROVIDERS: ATTEND Otolaryngology
DX: K21.9 Gastro-esophageal reflux disease without esophagitis (principal)

== ENCOUNTER → 2022-04-06 | Outpatient (CLI) | payer OTHER ==
[~2022-04-06] MED LIST changes: -E-Z-GAS II EFFERVESCENT PACKET (SODIUM BICARB./CITRIC ACID/SIMETHICONE) As Ordered ONE; -E-Z-HD 98% w/w 340GM SUSP BTL As Ordered ONE; -E-Z-PAQUE 96% w/w SUSP 176GM BTL As Ordered ONE
[2022-04-06 09:20] LABS: BASO % 0.5 % (0.0-1.0); EOS # 0.2 10^3/uL (0.0-0.5); EOS % 2.8 % (0.0-3.0); HEMATOCRIT 42.8 % (36.0-47.0); HEMOGLOBIN 13.5 g/dl (12.0-15.5); LYMPH # 1.9 10^3/uL (1.5-5.0); LYMPH % 25.8 % (24.0-44.0); MEAN CORPUSCULAR HEMOGLOBIN 24.3 pg (27.0-33.0); MEAN CORPUSCULAR HGB CONC 31.5 g/dl (32.0-36.5); MONO # 0.9 10^3/uL (0.0-0.8); MONO % 12.2 % (2.0-8.0); NEUTROPHILS # 4.3 10^3/uL (1.5-8.5); NEUTROPHILS % 57.9 % (36.0-66.0); PLATELET COUNT, AUTOMATED 458 10^3/uL (150-450); RED BLOOD COUNT 5.56 10^6/uL (4.00-5.40); WHITE BLOOD COUNT 7.5 10^3/uL (4.0-10.0)
[2022-04-06 09:41] LABS: ALBUMIN 3.5 GM/DL (3.2-5.2); ALT/SGPT 16 U/L (12-78); BILIRUBIN,TOTAL 0.2 MG/DL (0.2-1.0); BLOOD UREA NITROGEN 7 MG/DL (7-18); CALCIUM LEVEL 9.2 MG/DL (8.5-10.1); CARBON DIOXIDE LEVEL 27 MEQ/L (21-32); CHLORIDE LEVEL 99 MEQ/L (98-107); CHOLESTEROL LEVEL 195 MG/DL (<200); CHOLESTEROL RISK RATIO 5.735 (<5); CREATININE FOR GFR 0.59 MG/DL (0.55-1.30); GLOMERULAR FILTRATION RATE > 60.0 (>58); GLUCOSE, FASTING 151 MG/DL (70-100); HDL CHOLESTEROL 34 MG/DL (>40); LDL CHOLESTEROL 111 MG/DL (<100); NON-HDL-C 161 MG/DL; POTASSIUM SERUM 5.1 MEQ/L (3.5-5.1); SODIUM LEVEL 131 MEQ/L (136-145); TOTAL PROTEIN 6.9 GM/DL (6.4-8.2); TRIGLYCERIDES LEVEL 252 MG/DL (<150)
[2022-04-06 09:53] LABS: HEMOGLOBIN A1c 7.4 %
== END ==
LOC: M LAB 08:01
PROVIDERS: ATTEND Nurse Practitioner Family
DX: E11.65 Type 2 diabetes mellitus with hyperglycemia (principal); E66.3 Overweight

== ENCOUNTER → 2022-04-12 | Outpatient (REF) | payer OTHER | LOC: M LAB REF 16:28 | PROVIDERS: ATTEND Nurse Practitioner Family | DX: R39.9 Unspecified symptoms and signs involving the genitourinary system (principal) ==

== ENCOUNTER 2022-08-02 21:52 | Emergency (ER) | payer OTHER ==
[~2022-08-02 21:52] MED LIST changes: -DOXY-350 PO; +DOXY-444 PO
[2022-08-02] MEDS ORDERED: MORPHINE 2 MG/ML 1ML VIAL IV ONE (22:25)
[2022-08-02 22:36] LABS: BASO # 0.1 10^3/uL (0.0-0.2); BASO % 0.4 % (0.0-1.0); EOS # 0.2 10^3/uL (0.0-0.5); EOS % 1.5 % (0.0-3.0); HEMATOCRIT 46.4 % (36.0-47.0); HEMOGLOBIN 14.4 g/dl (12.0-15.5); MEAN CORPUSCULAR HEMOGLOBIN 25.6 pg (27.0-33.0); MEAN CORPUSCULAR VOLUME 82.6 fl (80.0-96.0); MONO # 1.2 10^3/uL (0.0-0.8); MONO % 7.7 % (2.0-8.0); NEUTROPHILS # 11.1 10^3/uL (1.5-8.5); NEUTROPHILS % 71.1 % (36.0-66.0); PLATELET COUNT, AUTOMATED 467 10^3/uL (150-450); RED BLOOD COUNT 5.62 10^6/uL (4.00-5.40); WHITE BLOOD COUNT 15.7 10^3/uL (4.0-10.0)
[2022-08-02 23:00] LABS: HCG, SERUM QUALITATIVE NEGATIVE (NEGATIVE)
[2022-08-02 23:01] LABS: BLOOD UREA NITROGEN 9 MG/DL (9-23); CALCIUM LEVEL 9.7 MG/DL (8.5-10.1); CARBON DIOXIDE LEVEL 31 MMOL/L (20-31); CHLORIDE LEVEL 92 MMOL/L (98-107); CK-MB VALUE MASS 1.7 NG/ML (<3.6); CREATININE FOR GFR 0.71 MG/DL (0.55-1.30); GLOMERULAR FILTRATION RATE > 60.0 (>58); GLUCOSE, FASTING 122 MG/DL (60-100); POTASSIUM SERUM 4.7 MMOL/L (3.5-5.1); SODIUM LEVEL 129 MMOL/L (136-145)
[2022-08-02 23:04] LABS: THYROID STIMULATING HORMONE 48.166 uIU/ML (0.55-4.78)
[2022-08-02 23:10] LABS: CPK CREATINE PHOSPHOKINASE 182 U/L (34-145); MB/CK RELATIVE INDEX 0.93 (< OR =4)
[2022-08-02 23:30] VITALS: BP 151/86
[2022-08-02] MEDS ORDERED: MACR100C43 PO (23:59)
[2022-08-02] MEDS ORDERED: DIFL150T PO (23:59)
[2022-08-03] MEDS ORDERED: ACET-907 PO ×2 (00:01→00:17)
[2022-08-03] MEDS ORDERED: MACR100C43 PO (00:16)
[2022-08-03] MEDS ORDERED: DIFL150T PO (00:16)
== END 2022-08-03 00:20 | disposition home or self-care (01) ==
LOC: M ED 21:52
DX: N39.0 Urinary tract infection, site not specified (principal); E11.9 Type 2 diabetes mellitus without complications; I10 Essential (primary) hypertension; E78.5 Hyperlipidemia, unspecified; J45.909 Unspecified asthma, uncomplicated; J44.9 Chronic obstructive pulmonary disease, unspecified; K57.92 Diverticulitis of intestine, part unspecified, without perforation or abscess without bleeding; K21.9 Gastro-esophageal reflux disease without esophagitis; F41.9 Anxiety disorder, unspecified; F32.9 Major depressive disorder, single episode, unspecified; F91.3 Oppositional defiant disorder; Z86.73 Personal history of transient ischemic attack (TIA), and cerebral infarction without residual deficits; F17.200 Nicotine dependence, unspecified, uncomplicated; F12.10 Cannabis abuse, uncomplicated; Z79.890 Hormone replacement therapy; Z79.84 Long term (current) use of oral hypoglycemic drugs; Z79.82 Long term (current) use of aspirin; Z79.899 Other long term (current) drug therapy; Z88.1 Allergy status to other antibiotic agents; Z88.2 Allergy status to sulfonamides

== ENCOUNTER 2022-10-25 19:06 | Inpatient (IN) | payer OTHER ==
[~2022-10-25] VITALS: Ht 180.3 cm; Wt 107.5 kg
[~2022-10-25 19:06] MED LIST changes: +DIFL150T PO; +MACR100C43 PO
[2022-10-25] MEDS ORDERED: IPRATROPIUM 0.02% SOLN 0.5MG 2.5ML NEB NEB ONE (19:50)
[2022-10-25] MEDS ORDERED: ALBUTEROL SULFATE 2.5MG/0.5ML INH NEB SOLN NEB ONE (19:50)
[2022-10-25] MEDS ORDERED: methylPREDNISolone 125MG 2ML VIAL IV ONE (19:50)
[2022-10-25 20:27] LABS: BASO # 0.1 10^3/uL (0.0-0.2); BASO % 0.6 % (0.0-1.0); EOS # 0.5 10^3/uL (0.0-0.5); EOS % 3.8 % (0.0-3.0); HEMATOCRIT 44.6 % (36.0-47.0); HEMOGLOBIN 14.1 g/dl (12.0-15.5); LYMPH # 2.9 10^3/uL (1.5-5.0); LYMPH % 21.9 % (24.0-44.0); MEAN CORPUSCULAR HEMOGLOBIN 26.3 pg (27.0-33.0); MEAN CORPUSCULAR HGB CONC 31.6 g/dl (32.0-36.5); MEAN CORPUSCULAR VOLUME 83.1 fl (80.0-96.0); MONO # 1.2 10^3/uL (0.0-0.8); MONO % 9.2 % (2.0-8.0); NEUTROPHILS # 8.4 10^3/uL (1.5-8.5); NEUTROPHILS % 64.2 % (36.0-66.0); PLATELET COUNT, AUTOMATED 464 10^3/uL (150-450); RED BLOOD COUNT 5.37 10^6/uL (4.00-5.40)
[2022-10-25] MEDS ORDERED: ISOVUE-370 76% 100ML VIAL As Ordered ONE (20:37)
[2022-10-25 20:52] LABS: BILIRUBIN,DIRECT 0.2 MG/DL (<0.4); BILIRUBIN,TOTAL 0.4 MG/DL (0.3-1.2); TOTAL PROTEIN 7.7 G/DL (5.7-8.2)
[2022-10-25 20:54] LABS: THYROID STIMULATING HORMONE 59.091 uIU/ML (0.55-4.78); THYROXINE (T4) 1.6 UG/DL (4.5-10.9)
[2022-10-25 21:01] LABS: RSV AMPLIFICATION NEGATIVE (NEGATIVE)
[2022-10-25 23:39] LABS: ABG BASE EXCESS 3.8 (-2.0-2.0); ABG HCO3 30.3 MEQ/L (22.0-26.0); ABG O2 SATURATION 94.6 % (95.0-99.0); ABG PARTIAL PRESSURE CO2 53.7 mmHg (35.0-45.0); ABG PARTIAL PRESSURE O2 69.9 mmHg (75.0-100.0); ABG STANDARD HCO3 27.8 MEQ/L (22.0-26.0)
[2022-10-26] VITALS (7 sets, daily range): BP systolic 113–180; BP diastolic 65–106
[2022-10-26] MEDS ORDERED: LevoFLOXacin IV 750 MG in IV 1 EA IV ONE ×2
[2022-10-26] MEDS ORDERED: MIRA1POW3 PO (01:00)
[2022-10-26] MEDS ORDERED: GUAI100L56 PO (01:00)
[2022-10-26] MEDS ORDERED: NS3NEB INH (01:00)
[2022-10-26] MEDS ORDERED: DULO20CA27 PO (01:00)
[2022-10-26] MEDS ORDERED: TRUL10IN SC (01:00)
[2022-10-26] MEDS ORDERED: SYST1SOL4 OU (01:00)
[2022-10-26] MEDS ORDERED: FENO145T7 PO (01:00)
[2022-10-26] MEDS ORDERED: BUDE0.5S6 INH (01:00)
[2022-10-26] MEDS ORDERED: HOME MED LIST COMPLETE! XX SCH (01:05)
[2022-10-26] MEDS ORDERED: ALBUTEROL SULFATE 2.5MG/0.5ML INH NEB SOLN NEB PRN (01:50)
[2022-10-26] MEDS ORDERED: NS 1,000 ML IV SCH (01:50)
[2022-10-26] MEDS ORDERED: ACETAMINOPHEN TAB 650MG DOSE (2X325MG) PO PRN (01:50)
[2022-10-26] MEDS ORDERED: GLUCAGON INJ 1MG VIAL SC PRN (02:20)
[2022-10-26] MEDS ORDERED: GLUCOSE 4GM CHEW TABLET PO PRN (02:20)
[2022-10-26] MEDS ORDERED: DEXTROSE 50% 50ML SYRINGE IV PRN (02:20)
[2022-10-26] MEDS: methylPREDNISolone 40MG 1ML VIAL IV SCH ×4 (02:29→21:08)
[2022-10-26] MEDS: ALBUTEROL SULFATE 2.5MG/0.5ML INH NEB SOLN INH SCH ×4 (02:45→19:55)
[2022-10-26] MEDS: HEPARIN SOD (PORCINE) 5000UNITS/ML 1ML VIAL/SYRINGE SC SCH ×3 (05:56→21:08)
[2022-10-26] MEDS: LEVOTHYROXINE 150MCG TABLET (0.15MG) PO SCH (05:56)
[2022-10-26 06:01] LABS: BLOOD UREA NITROGEN 7 MG/DL (9-23); CALCIUM LEVEL 8.1 MG/DL (8.5-10.1); CARBON DIOXIDE LEVEL 29 MMOL/L (20-31); CHLORIDE LEVEL 96 MMOL/L (98-107); CREATININE FOR GFR 0.56 MG/DL (0.55-1.30); GLOMERULAR FILTRATION RATE > 60.0 (>58); GLUCOSE, FASTING 164 MG/DL (60-100); POTASSIUM SERUM 4.2 MMOL/L (3.5-5.1); SODIUM LEVEL 132 MMOL/L (136-145)
[2022-10-26] MEDS: OMEPRAZOLE 20MG CAP PO SCH ×2 (09:00→20:13)
[2022-10-26] MEDS: ASPIRIN 81MG CHEW TABLET PO SCH (09:00)
[2022-10-26] MEDS: GABAPENTIN 300 MG CAP PO SCH ×3 (09:01→20:13)
[2022-10-26] MEDS: ATORVASTATIN 20 MG TAB PO SCH (09:01)
[2022-10-26] MEDS: INSULIN LISPRO (NovoLOG) PER UNIT SC SCH ×3 (09:03→16:36)
[2022-10-26] MEDS: SODIUM CHLORIDE HYPERTONIC 3% 15ML NEB SOL INH SCH ×3 (09:28→19:55)
[2022-10-26] MEDS ORDERED: QUET50TA4 PO (10:43)
[2022-10-26] MEDS: BUDESONIDE 0.5 MG/2 ML INHALATION SUSPENSION INH SCH ×2 (11:20→19:55)
[2022-10-26] MEDS ORDERED: VALSARTAN 40MG TABLET (DIOVAN) PO ONE (17:20)
[2022-10-26] MEDS ORDERED: QUEtiapine FUMARATE 50MG TAB PO SCH (21:00)
[2022-10-26] MEDS ORDERED: INSULIN LISPRO (NovoLOG) PER UNIT SC SCH (21:00)
[2022-10-26] MEDS ORDERED: DULoxetine 20MG CAP (CYMBALTA) PO SCH (21:00)
[2022-10-26] MEDS ORDERED: MONTELUKAST 10 MG TAB PO SCH (21:00)
[2022-10-26] MEDS ORDERED: FENOFIBRATE 145MG TABLET (TRICOR) PO SCH (21:00)
[2022-10-26] MEDS: DOCUSATE SODIUM 100MG CAPSULE PO SCH (22:11)
[2022-10-27] MEDS ORDERED: LevoFLOXacin IV 750 MG in IV 1 EA IV SCH (01:00)
[2022-10-27] MEDS: ALBUTEROL SULFATE 2.5MG/0.5ML INH NEB SOLN INH SCH ×2 (02:50→07:25)
[2022-10-27] MEDS: SODIUM CHLORIDE HYPERTONIC 3% 15ML NEB SOL INH SCH ×2 (02:51→07:25)
[2022-10-27 03:49] VITALS: BP 105/65
[2022-10-27] MEDS: LEVOTHYROXINE 150MCG TABLET (0.15MG) PO SCH (05:15)
[2022-10-27] MEDS: HEPARIN SOD (PORCINE) 5000UNITS/ML 1ML VIAL/SYRINGE SC SCH (05:16)
[2022-10-27 05:38] LABS: BASO % 0.2 % (0.0-1.0); EOS % 0.1 % (0.0-3.0); HEMOGLOBIN 13.4 g/dl (12.0-15.5); LYMPH # 1.3 10^3/uL (1.5-5.0); LYMPH % 8.5 % (24.0-44.0); MEAN CORPUSCULAR HEMOGLOBIN 25.7 pg (27.0-33.0); MEAN CORPUSCULAR HGB CONC 31.2 g/dl (32.0-36.5); MEAN CORPUSCULAR VOLUME 82.4 fl (80.0-96.0); MONO # 0.8 10^3/uL (0.0-0.8); MONO % 5.6 % (2.0-8.0); NEUTROPHILS # 12.9 10^3/uL (1.5-8.5); NEUTROPHILS % 85.1 % (36.0-66.0); PLATELET COUNT, AUTOMATED 423 10^3/uL (150-450); RED BLOOD COUNT 5.22 10^6/uL (4.00-5.40); WHITE BLOOD COUNT 15.1 10^3/uL (4.0-10.0)
[2022-10-27 05:55] LABS: BLOOD UREA NITROGEN 9 MG/DL (9-23); CALCIUM LEVEL 9.4 MG/DL (8.5-10.1); CARBON DIOXIDE LEVEL 29 MMOL/L (20-31); CHLORIDE LEVEL 96 MMOL/L (98-107); CREATININE FOR GFR 0.62 MG/DL (0.55-1.30); GLOMERULAR FILTRATION RATE > 60.0 (>58); GLUCOSE, FASTING 140 MG/DL (60-100); PHOSPHORUS LEVEL 2.4 MG/DL (2.5-4.9); POTASSIUM SERUM 4.4 MMOL/L (3.5-5.1); SODIUM LEVEL 132 MMOL/L (136-145)
[2022-10-27] MEDS: BUDESONIDE 0.5 MG/2 ML INHALATION SUSPENSION INH SCH (07:25)
[2022-10-27] MEDS: INSULIN LISPRO (NovoLOG) PER UNIT SC SCH ×2 (07:30→12:00)
[2022-10-27] MEDS ORDERED: PRED10TA2 PO (08:24)
[2022-10-27] MEDS ORDERED: LEVO750T14 PO (08:24)
[2022-10-27 08:30] VITALS: BP 130/92
[2022-10-27 08:55] VITALS: BP 130/92
[2022-10-27] MEDS: OMEPRAZOLE 20MG CAP PO SCH (08:56)
[2022-10-27] MEDS: DOCUSATE SODIUM 100MG CAPSULE PO SCH (08:56)
[2022-10-27] MEDS: ATORVASTATIN 20 MG TAB PO SCH (08:56)
[2022-10-27] MEDS: GABAPENTIN 300 MG CAP PO SCH (08:56)
[2022-10-27] MEDS: ASPIRIN 81MG CHEW TABLET PO SCH (08:56)
[2022-10-27] MEDS ORDERED: SODIUM PHOSPHATE INJ 20 MMOL in D5W 250 ML IV ONE (09:00)
[2022-10-27] MEDS ORDERED: VALSARTAN 40MG TABLET (DIOVAN) PO SCH (09:00)
[2022-10-27] MEDS: methylPREDNISolone 40MG 1ML VIAL IV SCH (12:17)
== END 2022-10-27 12:23 | disposition home or self-care (01) | DRG 140 ==
LOC: M ED 19:06 → M ED INP 10-26 01:48 → M PCU 10-26 03:27
PROVIDERS: ADMIT Internal Medicine; ATTEND Internal Medicine
DX: J44.1 Chronic obstructive pulmonary disease with (acute) exacerbation (principal); J96.01 Acute respiratory failure with hypoxia; J18.9 Pneumonia, unspecified organism; Z93.0 Tracheostomy status; E11.42 Type 2 diabetes mellitus with diabetic polyneuropathy; E83.39 Other disorders of phosphorus metabolism; E03.9 Hypothyroidism, unspecified; E78.2 Mixed hyperlipidemia; F41.9 Anxiety disorder, unspecified; J44.0 Chronic obstructive pulmonary disease with (acute) lower respiratory infection; K21.9 Gastro-esophageal reflux disease without esophagitis; F17.200 Nicotine dependence, unspecified, uncomplicated; J45.909 Unspecified asthma, uncomplicated; Z90.49 Acquired absence of other specified parts of digestive tract; Z88.2 Allergy status to sulfonamides; Z88.8 Allergy status to other drugs, medicaments and biological substances; Z79.82 Long term (current) use of aspirin; Z79.1 Long term (current) use of non-steroidal anti-inflammatories (NSAID); Z79.899 Other long term (current) drug therapy; Z85.21 Personal history of malignant neoplasm of larynx; Z88.1 Allergy status to other antibiotic agents

== ENCOUNTER 2022-11-03 20:16 | Emergency (ER) | payer OTHER ==
[~2022-11-03] VITALS: Ht 180.3 cm; Wt 108.4 kg
[~2022-11-03 20:16] MED LIST changes: +BUDE0.5S6 INH; +DULO20CA27 PO; +GUAI100L56 PO; +LEVO750T14 PO; +MIRA1POW3 PO; +QUET50TA4 PO; +SYST1SOL4 OU; +TRUL10IN SC
[2022-11-03] MEDS ORDERED: ACETAMINOPHEN 500 MG TAB PO ONE (21:35)
[2022-11-03] MEDS ORDERED: KETOROLAC 60MG 2ML VIAL IM ONE (22:05)
[2022-11-03 22:18] VITALS: BP 98/53
== END 2022-11-03 22:33 | disposition home or self-care (01) ==
LOC: M ED 20:16
DX: S69.91XA Unspecified injury of right wrist, hand and finger(s), initial encounter (principal); W22.8XXA Striking against or struck by other objects, initial encounter; Y92.019 Unspecified place in single-family (private) house as the place of occurrence of the external cause; Y93.89 Activity, other specified; Y99.8 Other external cause status; I10 Essential (primary) hypertension; E11.9 Type 2 diabetes mellitus without complications; J44.9 Chronic obstructive pulmonary disease, unspecified; Z86.73 Personal history of transient ischemic attack (TIA), and cerebral infarction without residual deficits; Z85.21 Personal history of malignant neoplasm of larynx
CPT/HCPCS: 73090; 73130; 96372; 99284; J1885

== ENCOUNTER → 2022-12-03 | Outpatient (REF) | payer OTHER ==
[2022-12-03 16:59] LABS: HEMATOCRIT 43.1 % (36.0-47.0); HEMOGLOBIN 13.1 g/dl (12.0-15.5); MEAN CORPUSCULAR HEMOGLOBIN 25.8 pg (27.0-33.0); MEAN CORPUSCULAR HGB CONC 30.4 g/dl (32.0-36.5); MEAN CORPUSCULAR VOLUME 84.8 fl (80.0-96.0); PLATELET COUNT, AUTOMATED 478 10^3/uL (150-450); RED BLOOD COUNT 5.08 10^6/uL (4.00-5.40); WHITE BLOOD COUNT 11.3 10^3/uL (4.0-10.0)
[2022-12-03 17:24] LABS: CHOLESTEROL RISK RATIO 6.63 (<5); HDL CHOLESTEROL 19.3 MG/DL (>40); LDL CHOLESTEROL 79.5 MG/DL (<100); NON-HDL-C 108.7 MG/DL
[2022-12-03 17:25] LABS: THYROID STIMULATING HORMONE 20.865 uIU/ML (0.55-4.78)
[2022-12-03 17:39] LABS: ANISOCYTOSIS 2+; EOSINOPHILS 4 % (0-3); LYMPHOCYTES 19 % (16-44); MONOCYTES 8 % (0-5); NEUTROPHILS 64 % (28-66); PLATELET ESTIMATE INCREASED (NORMAL)
== END ==
LOC: M LAB REF 16:24
PROVIDERS: ATTEND Nurse Practitioner Family
DX: J18.9 Pneumonia, unspecified organism (principal); E78.5 Hyperlipidemia, unspecified; E03.9 Hypothyroidism, unspecified

== ENCOUNTER → 2022-12-10 | Outpatient (CLI) | payer OTHER | LOC: M RAD 14:28 | PROVIDERS: ATTEND Nurse Practitioner Family | DX: J18.9 Pneumonia, unspecified organism (principal) ==

== ENCOUNTER → 2023-01-23 | Outpatient (CLI) | payer OTHER | LOC: M SOG 09:02 | PROVIDERS: ATTEND Orthopaedic Surgery | DX: M47.22 Other spondylosis with radiculopathy, cervical region (principal); Z53.8 Procedure and treatment not carried out for other reasons ==

== ENCOUNTER → 2023-03-07 | Outpatient (REF) | payer OTHER ==
[~2023-03-07] MED LIST changes: -GABA-283 PO; +GABA-284 PO
== END ==
LOC: M LAB REF 12:03
PROVIDERS: ATTEND Obstetrics & Gynecology
DX: R32 Unspecified urinary incontinence (principal)

== ENCOUNTER → 2023-06-10 | Outpatient (CLI) | payer OTHER ==
[~2023-06-10] MED LIST changes: -CEFD300C41 PO; +CEFD300C42 PO
== END ==
LOC: M RAD 16:14
PROVIDERS: ATTEND Nurse Practitioner Family
DX: R29.6 Repeated falls (principal); M16.0 Bilateral primary osteoarthritis of hip

== ENCOUNTER → 2023-06-10 | Outpatient (REF) | payer OTHER ==
[2023-06-10 18:31] LABS: BASO # 0.1 10^3/uL (0.0-0.2); BASO % 0.6 % (0.0-1.0); EOS # 0.6 10^3/uL (0.0-0.5); EOS % 6.2 % (0.0-3.0); HEMATOCRIT 44.4 % (36.0-47.0); HEMOGLOBIN 13.9 g/dl (12.0-15.5); LYMPH # 2.5 10^3/uL (1.5-5.0); LYMPH % 26.7 % (24.0-44.0); MEAN CORPUSCULAR HEMOGLOBIN 27.6 pg (27.0-33.0); MEAN CORPUSCULAR HGB CONC 31.3 g/dl (32.0-36.5); MEAN CORPUSCULAR VOLUME 88.3 fl (80.0-96.0); MONO # 0.7 10^3/uL (0.0-0.8); MONO % 7.5 % (2.0-8.0); NEUTROPHILS # 5.5 10^3/uL (1.5-8.5); NEUTROPHILS % 58.8 % (36.0-66.0); PLATELET COUNT, AUTOMATED 346 10^3/uL (150-450); RED BLOOD COUNT 5.03 10^6/uL (4.00-5.40); WHITE BLOOD COUNT 9.4 10^3/uL (4.0-10.0)
[2023-06-10 18:56] LABS: ALBUMIN 4.1 G/DL (3.2-5.2); ALKALINE PHOSPHATASE 96 U/L (46-116); ALT/SGPT 15 U/L (7.0-40); AST/SGOT 23 U/L (<34); BILIRUBIN,TOTAL 0.2 MG/DL (0.3-1.2); BLOOD UREA NITROGEN 9 MG/DL (9-23); CALCIUM LEVEL 9.4 MG/DL (8.5-10.1); CARBON DIOXIDE LEVEL 30 MMOL/L (20-31); CHLORIDE LEVEL 99 MMOL/L (98-107); CHOLESTEROL LEVEL 261 MG/DL (<200); CHOLESTEROL RISK RATIO 5.24 (<5); CREATININE FOR GFR 0.71 MG/DL (0.55-1.30); GLOMERULAR FILTRATION RATE > 60.0 (>58); GLUCOSE, FASTING 91 MG/DL (60-100); HDL CHOLESTEROL 49.8 MG/DL (>40); IRON (FE) 41 UG/DL (50-170); MAGNESIUM LEVEL 2.1 MG/DL (1.8-2.4); NON-HDL-C 211.2 MG/DL; PERCENT SATURATION 10.1 % (13.2-45.0); POTASSIUM SERUM 4.9 MMOL/L (3.5-5.1); SODIUM LEVEL 136 MMOL/L (136-145); TOTAL IRON BINDING CAPACITY 406 UG/DL (250-425); TOTAL PROTEIN 7.6 G/DL (5.7-8.2); TRIGLYCERIDES LEVEL 291 MG/DL (<150)
[2023-06-10 18:57] LABS: VITAMIN B12 LEVEL 517 PG/ML (211-911)
[2023-06-10 18:58] LABS: FOLATE 14.6 NG/ML (>5.4); TOTAL 25(OH) VITAMIN D 17.4 NG/ML (20.0-100.0)
[2023-06-10 18:59] LABS: FREE T4 0.22 NG/DL (0.89-1.76)
== END ==
LOC: M LAB REF 17:23
PROVIDERS: ATTEND Nurse Practitioner Family
DX: Z13.228 Encounter for screening for other metabolic disorders (principal)

== ENCOUNTER → 2023-06-25 | Outpatient (CLI) | payer OTHER ==
[~2023-06-25] MED LIST changes: +CEFD1CAP9 PO; -CEFD300C42 PO
== END ==
LOC: M RAD 11:37
PROVIDERS: ATTEND Nurse Practitioner Family
DX: R05.9 Cough, unspecified (principal); M16.0 Bilateral primary osteoarthritis of hip

== ENCOUNTER → 2023-10-14 | Outpatient (CLI) | payer OTHER ==
[~2023-10-14] MED LIST changes: +LABE100T40 PO; -LABE100T71 PO; -MIRA1POW3 PO; +MIRA33506 PO
== END ==
LOC: M PLAIMG 08:33
PROVIDERS: ATTEND Nurse Practitioner Family
DX: R06.02 Shortness of breath (principal); Z85.21 Personal history of malignant neoplasm of larynx

== ENCOUNTER 2023-11-01 12:38 | Outpatient (RCR) | payer OTHER | END 2023-11-19 | LOC: M ST 12:38 | PROVIDERS: ATTEND Otolaryngology | DX: Z90.02 Acquired absence of larynx (principal) ==

== ENCOUNTER → 2023-12-04 | Outpatient (CLI) | payer OTHER ==
[~2023-12-04] MED LIST changes: +DOXY-323 PO; +DOXY-440 PO; -DOXY-443 PO; -DOXY-444 PO
== END ==
LOC: M RAD 10:45
PROVIDERS: ATTEND Surgery
DX: I65.23 Occlusion and stenosis of bilateral carotid arteries (principal)

== ENCOUNTER → 2023-12-08 | Outpatient (REF) | payer OTHER ==
[2023-12-08 17:51] LABS: AMORPHOUS SEDIMENT SMALL (NEGATIVE); APPEARANCE, URINE HAZY (CLEAR); BACTERIA, URINE AUTO NEGATIVE (NEGATIVE); BILIRUBIN, URINE AUTO NEGATIVE (NEGATIVE); BLOOD, URINE BLOOD NEGATIVE (NEGATIVE); COLOR, URINE YELLOW (YELLOW); GLUCOSE, URINE (UA) AUTO NEGATIVE (NEGATIVE); KETONE, URINE AUTO NEGATIVE (NEGATIVE); LEUKOCYTE ESTERASE, URINE AUTO TRACE (NEGATIVE); MUCUS, URINE SMALL (NEGATIVE); NITRITE, URINE AUTO NEGATIVE (NEGATIVE); PROTEIN, URINE AUTO NEGATIVE (NEGATIVE); RBC, URINE AUTO 1 /HPF (0-3); SPECIFIC GRAVITY URINE AUTO 1.017 (1.002-1.035); SQUAMOUS EPITHELIAL CELL UR AU 6 /HPF (0-6); WBC, URINE AUTO 5 /HPF (0-3)
== END ==
LOC: M LAB REF 17:27
PROVIDERS: ATTEND Physician Assistant Medical
DX: N39.0 Urinary tract infection, site not specified (principal)

== ENCOUNTER → 2023-12-09 | Outpatient (REF) | payer OTHER ==
[2023-12-09 13:58] LABS: BASO # 0.1 10^3/uL (0.0-0.2); BASO % 0.6 % (0.0-1.0); EOS # 0.6 10^3/uL (0.0-0.5); EOS % 7.2 % (0.0-3.0); HEMATOCRIT 45.8 % (36.0-47.0); HEMOGLOBIN 13.8 g/dl (12.0-15.5); LYMPH # 2.3 10^3/uL (1.5-5.0); LYMPH % 27.8 % (24.0-44.0); MEAN CORPUSCULAR HEMOGLOBIN 24.7 pg (27.0-33.0); MEAN CORPUSCULAR HGB CONC 30.1 g/dl (32.0-36.5); MEAN CORPUSCULAR VOLUME 82.1 fl (80.0-96.0); MONO # 0.5 10^3/uL (0.0-0.8); MONO % 6.4 % (2.0-8.0); NEUTROPHILS # 4.8 10^3/uL (1.5-8.5); NEUTROPHILS % 57.9 % (36.0-66.0); PLATELET COUNT, AUTOMATED 422 10^3/uL (150-450); RED BLOOD COUNT 5.58 10^6/uL (4.00-5.40); WHITE BLOOD COUNT 8.3 10^3/uL (4.0-10.0)
[2023-12-09 14:06] LABS: HEMOGLOBIN A1c 5.9 % (4.0-6.0)
[2023-12-09 14:18] LABS: ALBUMIN 3.9 G/DL (3.2-5.2); ALKALINE PHOSPHATASE 70 U/L (46-116); ALT/SGPT 11 U/L (7.0-40); AST/SGOT 9 U/L (<34); BILIRUBIN,TOTAL 0.3 MG/DL (0.3-1.2); BLOOD UREA NITROGEN 10 MG/DL (9-23); CALCIUM LEVEL 9.6 MG/DL (8.5-10.1); CARBON DIOXIDE LEVEL 28 MMOL/L (20-31); CHLORIDE LEVEL 100 MMOL/L (98-107); CHOLESTEROL LEVEL 154 MG/DL (<200); CHOLESTEROL RISK RATIO 2.87 (<5); CREATININE FOR GFR 0.51 MG/DL (0.55-1.30); GLOMERULAR FILTRATION RATE > 60.0 (>58); GLUCOSE, FASTING 145 MG/DL (60-100); HDL CHOLESTEROL 53.6 MG/DL (>40); LDL CHOLESTEROL 84.2 MG/DL (<100); MAGNESIUM LEVEL 1.6 MG/DL (1.8-2.4); NON-HDL-C 100.4 MG/DL; POTASSIUM SERUM 5.1 MMOL/L (3.5-5.1); SODIUM LEVEL 135 MMOL/L (136-145); TOTAL PROTEIN 7.3 G/DL (5.7-8.2); TRIGLYCERIDES LEVEL 81 MG/DL (<150)
[2023-12-09 14:19] LABS: THYROID STIMULATING HORMONE 2.009 uIU/ML (0.55-4.78)
[2023-12-09 14:20] LABS: TOTAL 25(OH) VITAMIN D 37.5 NG/ML (20.0-100.0)
== END ==
LOC: M LAB REF 13:19
PROVIDERS: ATTEND Nurse Practitioner Family
DX: E66.9 Obesity, unspecified (principal); E55.9 Vitamin D deficiency, unspecified

== ENCOUNTER 2024-01-14 14:00 | Outpatient (RCR) | payer OTHER | END 2024-01-19 | LOC: M ST 14:00 | PROVIDERS: ATTEND Otolaryngology | DX: Z96.3 Presence of artificial larynx (principal) ==

== ENCOUNTER → 2024-02-18 | Outpatient (CLI) | payer OTHER | LOC: M SOG 08:07 | PROVIDERS: ATTEND Physician Assistant | DX: M47.812 Spondylosis without myelopathy or radiculopathy, cervical region (principal); M54.2 Cervicalgia ==

== ENCOUNTER → 2024-03-11 | Outpatient (CLI) | payer OTHER, SELFPAY ==
[2024-03-11 14:57] LABS: ALBUMIN 3.9 G/DL (3.2-5.2); ALKALINE PHOSPHATASE 71 U/L (46-116); ALT/SGPT 18 U/L (7.0-40); AST/SGOT 13 U/L (<34); BILIRUBIN,TOTAL 0.2 MG/DL (0.3-1.2); BLOOD UREA NITROGEN 12 MG/DL (9-23); CALCIUM LEVEL 9.4 MG/DL (8.5-10.1); CARBON DIOXIDE LEVEL 29 MMOL/L (20-31); CHLORIDE LEVEL 102 MMOL/L (98-107); CREATININE FOR GFR 0.73 MG/DL (0.55-1.30); GLOMERULAR FILTRATION RATE > 60.0 (>58); GLUCOSE, FASTING 105 MG/DL (60-100); SODIUM LEVEL 135 MMOL/L (136-145); TOTAL PROTEIN 6.9 G/DL (5.7-8.2)
== END ==
LOC: M LAB 11:16
PROVIDERS: ATTEND Nurse Practitioner Family
DX: E66.9 Obesity, unspecified (principal)

== ENCOUNTER → 2024-03-11 | Outpatient (CLI) | payer OTHER, SELFPAY ==
[2024-03-11 13:57] LABS: BASO # 0.1 10^3/uL (0.0-0.2); EOS # 0.5 10^3/uL (0.0-0.5); EOS % 6.1 % (0.0-3.0); HEMATOCRIT 40.5 % (36.0-47.0); LYMPH # 2.5 10^3/uL (1.5-5.0); MEAN CORPUSCULAR HEMOGLOBIN 28.7 pg (27.0-33.0); MEAN CORPUSCULAR HGB CONC 32.1 g/dl (32.0-36.5); MEAN CORPUSCULAR VOLUME 89.4 fl (80.0-96.0); MONO # 0.6 10^3/uL (0.0-0.8); MONO % 8.2 % (2.0-8.0); NEUTROPHILS % 52.6 % (36.0-66.0); PLATELET COUNT, AUTOMATED 360 10^3/uL (150-450); RED BLOOD COUNT 4.53 10^6/uL (4.00-5.40); WHITE BLOOD COUNT 7.7 10^3/uL (4.0-10.0)
[2024-03-11 14:02] LABS: ERYTHROCYTE SEDIMENTATION RATE 18 mm/hr (0-20)
[2024-03-11 14:07] LABS: HEMOGLOBIN A1c 5.8 % (4.0-6.0)
[2024-03-11 14:29] LABS: ALBUMIN 3.9 G/DL (3.2-5.2); ALKALINE PHOSPHATASE 71 U/L (46-116); ALT/SGPT 17 U/L (7.0-40); AST/SGOT 11 U/L (<34); BILIRUBIN,TOTAL 0.2 MG/DL (0.3-1.2); BLOOD UREA NITROGEN 12 MG/DL (9-23); CALCIUM LEVEL 9.3 MG/DL (8.5-10.1); CARBON DIOXIDE LEVEL 30 MMOL/L (20-31); CHLORIDE LEVEL 102 MMOL/L (98-107); CREATININE FOR GFR 0.67 MG/DL (0.55-1.30); GLOMERULAR FILTRATION RATE > 60.0 (>58); GLUCOSE, FASTING 106 MG/DL (60-100); RHEUMATOID FACTOR QUANT 8.9 IU/ML (<14); SODIUM LEVEL 135 MMOL/L (136-145); TOTAL PROTEIN 6.9 G/DL (5.7-8.2)
[2024-03-11 14:32] LABS: THYROID STIMULATING HORMONE 28.637 uIU/ML (0.55-4.78)
[2024-03-11 14:33] LABS: FOLATE 13.1 NG/ML (>5.4); VITAMIN B12 LEVEL 402 PG/ML (211-911)
[2024-03-12 12:48] LABS: ANA SCREEN, IFA NEGATIVE (NEGATIVE)
[2024-03-16 16:22] LABS: VITAMIN B1 LEVEL WHOLE BLOOD 119 nmol/L (78-185)
[2024-03-17 04:32] LABS: VITAMIN E(ALPHA TOCOPHEROL) 23.9 mg/L (5.7-19.9); VITAMIN E(GAMMA TOCOPHEROL) 3.3 mg/L (<=4.3)
== END ==
LOC: M LAB 11:18
PROVIDERS: ATTEND Psychiatry & Neurology Neurology
DX: G60.9 Hereditary and idiopathic neuropathy, unspecified (principal)

== ENCOUNTER → 2024-03-11 | Outpatient (CLI) | payer OTHER ==
[~2024-03-11] MED LIST changes: +BARIUM SULFATE 700 MG TABLET (E-Z-DISK) As Ordered ONE; +E-Z-PAQUE 96% w/w SUSP 176GM BTL As Ordered ONE; +VARIBAR NECTAR 40% w/v 240ML SUSP BTL As Ordered ONE; +VARIBAR PUDDING 40% w/v 230ML TUBE As Ordered ONE
== END ==
LOC: M RAD 11:13
PROVIDERS: ATTEND Otolaryngology
DX: R13.10 Dysphagia, unspecified (principal)

== ENCOUNTER → 2024-03-18 | Outpatient (REF) | payer SELFPAY, OTHER ==
[~2024-03-18] MED LIST changes: -BARIUM SULFATE 700 MG TABLET (E-Z-DISK) As Ordered ONE; -E-Z-PAQUE 96% w/w SUSP 176GM BTL As Ordered ONE; +GABA-1490 PO; -GABA600T4 PO; -VARIBAR NECTAR 40% w/v 240ML SUSP BTL As Ordered ONE; -VARIBAR PUDDING 40% w/v 230ML TUBE As Ordered ONE
[2024-03-18 18:39] LABS: APPEARANCE, URINE HAZY (CLEAR); BACTERIA, URINE AUTO NEGATIVE (NEGATIVE); BILIRUBIN, URINE AUTO NEGATIVE (NEGATIVE); BLOOD, URINE BLOOD NEGATIVE (NEGATIVE); COLOR, URINE YELLOW (YELLOW); GLUCOSE, URINE (UA) AUTO NEGATIVE (NEGATIVE); KETONE, URINE AUTO NEGATIVE (NEGATIVE); LEUKOCYTE ESTERASE, URINE AUTO NEGATIVE (NEGATIVE); NITRITE, URINE AUTO NEGATIVE (NEGATIVE); PROTEIN, URINE AUTO NEGATIVE (NEGATIVE); RBC, URINE AUTO 1 /HPF (0-3); SPECIFIC GRAVITY URINE AUTO 1.015 (1.002-1.035); SQUAMOUS EPITHELIAL CELL UR AU 3 /HPF (0-6); UROBILINOGEN, URINE AUTO 0.2 mg/dL (0.0-2.0); WBC, URINE AUTO 3 /HPF (0-3)
[2024-03-20 14:28] LABS: Candida species NOT DETECTED (NOT DETECTED); Gardnerella vaginalis DETECTED (NOT DETECTED); Trichamonas vaginalis NOT DETECTED (NOT DETECTED)
== END ==
LOC: M SMT 17:20
PROVIDERS: ATTEND Specialist
DX: N89.8 Other specified noninflammatory disorders of vagina (principal); N32.81 Overactive bladder

== ENCOUNTER → 2024-04-17 | Outpatient (REF) | payer OTHER ==
[2024-04-17 12:59] LABS: THYROID STIMULATING HORMONE 18.913 uIU/ML (0.55-4.78)
== END ==
LOC: M LAB REF 11:30
PROVIDERS: ATTEND Nurse Practitioner Family
DX: E03.9 Hypothyroidism, unspecified (principal)

== ENCOUNTER → 2024-05-27 | Outpatient (CLI) | payer OTHER ==
[~2024-05-27] MED LIST changes: -DOXY-323 PO; +DOXY-441 PO; +GABA-1172 PO; -GABA-282 PO; -LEVO750T14 PO; +LEVO75TAB PO
== END ==
LOC: M WHC 09:19
PROVIDERS: ATTEND Nurse Practitioner Family
DX: N64.52 Nipple discharge (principal); N63.42 Unspecified lump in left breast, subareolar; N63.41 Unspecified lump in right breast, subareolar

== ENCOUNTER 2024-06-11 10:45 | Outpatient (RCR) | payer OTHER | END 2024-06-20 | LOC: M PT 10:45 | PROVIDERS: ATTEND Physician Assistant | DX: M54.2 Cervicalgia (principal); M54.6 Pain in thoracic spine; M54.50 Low back pain, unspecified ==

== ENCOUNTER 2024-07-02 09:10 | Outpatient (RCR) | payer OTHER | END 2024-07-21 | LOC: M PT 09:10 | PROVIDERS: ATTEND Physician Assistant | DX: M54.2 Cervicalgia (principal); M54.50 Low back pain, unspecified ==

== ENCOUNTER 2024-07-26 22:09 | Emergency (ER) | payer OTHER ==
[~2024-07-26] VITALS: Ht 180.3 cm; Wt 118.1 kg
[2024-07-26 22:18] VITALS: TEMP 96.3
[2024-07-26] MEDS: ONDANSETRON 4MG 2ML VIAL IV ONE (22:37)
[2024-07-26 22:42] LABS: BASO # 0.1 10^3/uL (0.0-0.2); BASO % 0.7 % (0.0-1.0); EOS # 0.6 10^3/uL (0.0-0.5); EOS % 5.1 % (0.0-3.0); HEMATOCRIT 44.3 % (36.0-47.0); HEMOGLOBIN 14.5 g/dl (12.0-15.5); LYMPH # 3.8 10^3/uL (1.5-5.0); LYMPH % 34.1 % (24.0-44.0); MEAN CORPUSCULAR HEMOGLOBIN 28.3 pg (27.0-33.0); MEAN CORPUSCULAR HGB CONC 32.7 g/dl (32.0-36.5); MEAN CORPUSCULAR VOLUME 86.5 fl (80.0-96.0); MONO % 8.6 % (2.0-8.0); NEUTROPHILS # 5.7 10^3/uL (1.5-8.5); NEUTROPHILS % 51.2 % (36.0-66.0); PLATELET COUNT, AUTOMATED 385 10^3/uL (150-450); RED BLOOD COUNT 5.12 10^6/uL (4.00-5.40); WHITE BLOOD COUNT 11.2 10^3/uL (4.0-10.0)
[2024-07-26 23:07] LABS: ALBUMIN 4.4 G/DL (3.2-5.2); ALKALINE PHOSPHATASE 91 U/L (35-104); ALT/SGPT 39 U/L (7.0-40); AST/SGOT 46 U/L (<34); BILIRUBIN,TOTAL 0.3 MG/DL (0.3-1.2); BLOOD UREA NITROGEN 8 MG/DL (9-23); CALCIUM LEVEL 9.7 MG/DL (8.5-10.1); CARBON DIOXIDE LEVEL 27 MMOL/L (20-31); CHLORIDE LEVEL 99 MMOL/L (98-107); CREATININE FOR GFR 0.44 MG/DL (0.55-1.30); GLOMERULAR FILTRATION RATE > 60.0 (>58); GLUCOSE, FASTING 249 MG/DL (60-100); POTASSIUM SERUM 4.7 MMOL/L (3.5-5.1); SODIUM LEVEL 135 MMOL/L (136-145)
[2024-07-26] MEDS ORDERED: hydrALAZINE 20MG/ML 1ML VIAL IV STA (23:11)
[2024-07-26] MEDS: KETOROLAC 30 MG/ML 1ML VIAL IV ONE (23:50)
[2024-07-26] MEDS: hydrALAZINE 20MG/ML 1ML VIAL IV STA (23:52)
[2024-07-27] MEDS: PROMETHAZINE 25MG/ML 1ML VIAL IV ONE (00:01)
[2024-07-27] MEDS: MAG SULF 1GM/100ML (MAG RUN) 1 GM in IV 1 EA IV ONE (00:40)
[2024-07-27 00:43] LABS: AMPHETAMINES LEVEL URINE NEGATIVE (NEGATIVE); BARBITURATES URINE NEGATIVE (NEGATIVE); BENZODIAZEPINES URINE NEGATIVE (NEGATIVE); COCAINE METABOLITE URINE NEGATIVE (NEGATIVE); METHADONE URINE NEGATIVE (NEGATIVE); OPIATES URINE NEGATIVE (NEGATIVE); PHENCYCLIDINE URINE NEGATIVE (NEGATIVE)
[2024-07-27 00:44] LABS: CANNABINOIDS URINE NEGATIVE (NEGATIVE)
[2024-07-27] MEDS: NS (Normal Saline) 0.9% 1,000 ML IV ONE (01:38)
[2024-07-27] MEDS: ACETAMINOPHEN *IV* 1,000 MG in IV 1 EA IV ONE (01:38)
[2024-07-27 02:10] LABS: CK-MB VALUE MASS < 1.0 NG/ML (<3.6); CPK CREATINE PHOSPHOKINASE 80 U/L (34-145); MB/CK RELATIVE INDEX 1.25 (< OR =4)
[2024-07-27 03:09] LABS: CK-MB VALUE MASS < 1.0 NG/ML (<3.6)
[2024-07-27 03:10] LABS: CPK CREATINE PHOSPHOKINASE 61 U/L (34-145); MB/CK RELATIVE INDEX 1.63 (< OR =4)
[2024-07-27 03:15] VITALS: O2SAT 91
[2024-07-27] MEDS ORDERED: AMLO25TA PO (03:16)
[2024-07-27 03:34] VITALS: BP 150/86
== END 2024-07-27 03:42 | disposition home or self-care (01) ==
LOC: M ED 22:09 → EDBD 22:09 → M ED 07-27 03:42
DX: G43.909 Migraine, unspecified, not intractable, without status migrainosus (principal); I10 Essential (primary) hypertension; I44.4 Left anterior fascicular block; E11.9 Type 2 diabetes mellitus without complications; E78.5 Hyperlipidemia, unspecified; J44.9 Chronic obstructive pulmonary disease, unspecified; F17.210 Nicotine dependence, cigarettes, uncomplicated; F32.A Depression, unspecified; Z88.1 Allergy status to other antibiotic agents; Z88.2 Allergy status to sulfonamides; Z88.8 Allergy status to other drugs, medicaments and biological substances; Z79.51 Long term (current) use of inhaled steroids; Z79.1 Long term (current) use of non-steroidal anti-inflammatories (NSAID); Z79.4 Long term (current) use of insulin; Z79.899 Other long term (current) drug therapy
CPT/HCPCS: 70450; 80053; 80307; 82550; 82553; 84484; 85025; 87486; 87581; 87633; 87798; 93005; 96365; 96366; 96375; 99284; J0131; J0360; J1100; J1885; J2405; J2550; J3475

== ENCOUNTER 2024-07-30 10:41 | Emergency (ER) | payer OTHER ==
[~2024-07-30] VITALS: Ht 180.3 cm; Wt 121.9 kg
[~2024-07-30 10:41] MED LIST changes: +AMLO25TA PO
[2024-07-30] MEDS ORDERED: PILL CUTTER 1 EACH XX ONE (14:18)
[2024-07-30] MEDS: ACETAMINOPHEN 500 MG TAB PO ONE (14:20)
[2024-07-30] MEDS: KETOROLAC 30 MG/ML 1ML VIAL IM ONE (14:20)
[2024-07-30] MEDS: diazePAM 5MG TABLET PO ONE (14:21)
[2024-07-30] MEDS ORDERED: MEDR4PAK PO (15:38)
[2024-07-30] MEDS ORDERED: TIZA10TA PO (15:38)
[2024-07-30 16:01] VITALS: BP 105/63; TEMP 97.7; O2SAT 95
== END 2024-07-30 16:03 | disposition home or self-care (01) ==
LOC: M ED 10:41
DX: M54.2 Cervicalgia (principal); M50.822 Other cervical disc disorders at C5-C6 level; I10 Essential (primary) hypertension; J44.9 Chronic obstructive pulmonary disease, unspecified; Z87.891 Personal history of nicotine dependence; Z93.0 Tracheostomy status; Z79.82 Long term (current) use of aspirin; Z79.899 Other long term (current) drug therapy; Z88.1 Allergy status to other antibiotic agents; Z88.2 Allergy status to sulfonamides; Z88.8 Allergy status to other drugs, medicaments and biological substances
CPT/HCPCS: 72052; 96372; 99283; J1885

== ENCOUNTER → 2024-11-25 | Outpatient (REF) | payer OTHER ==
[~2024-11-25] MED LIST changes: +AMPH1CAP16 PO; +ARIP10TA63 PO; +ATOR40TA75 PO; +CLON0.5T2 PO; +LEVO125T4 PO; +LEXA5TAB13 PO; +MEDR4PAK PO; +PREG-35 PO; -PREG100CA PO; +TIZA10TA PO; +TRAZ-257 PO; +VENL225T PO
== END ==
LOC: M LAB REF 12:30
PROVIDERS: ATTEND Nurse Practitioner Family
DX: E03.9 Hypothyroidism, unspecified (principal)

== ENCOUNTER → 2025-01-28 | Outpatient (REF) | payer OTHER ==
[~2025-01-28] MED LIST changes: +LIDO1ADH93 TD; -LIDO5DIS41 TD
[2025-01-28 12:48] LABS: CREATININE, URINE 115.1 MG/DL; MALB URINE SIEMENS 6.0 MG/L; MAU/CREAT RATIO 5.2 MCG/MG (0.0-30.0)
[2025-01-28 14:07] LABS: ALT/SGPT 30 U/L (7.0-40); AST/SGOT 26 U/L (<34); CALCIUM LEVEL 9.2 MG/DL (8.5-10.1); CARBON DIOXIDE LEVEL 28 MMOL/L (20-31); CHLORIDE LEVEL 100 MMOL/L (98-107); CHOLESTEROL LEVEL 160 MG/DL (<200); CHOLESTEROL RISK RATIO 5.31 (<5); CREATININE FOR GFR 0.59 MG/DL (0.55-1.30); GLOMERULAR FILTRATION RATE > 90.0 (>58); LDL CHOLESTEROL 62.7 MG/DL (<100); NON-HDL-C 129.9 MG/DL; POTASSIUM SERUM 5.0 MMOL/L (3.5-5.1); SODIUM LEVEL 138 MMOL/L (136-145); TRIGLYCERIDES LEVEL 336 MG/DL (<150)
== END ==
LOC: M LAB REF 11:53
PROVIDERS: ATTEND Student in an Organized Health Care Education/Training Program
DX: Z79.4 Long term (current) use of insulin (principal); E03.9 Hypothyroidism, unspecified; E78.5 Hyperlipidemia, unspecified

== ENCOUNTER 2025-04-15 10:05 | Day surgery (SDC) | payer OTHER ==
[~2025-04-15] VITALS: Ht 180.3 cm; Wt 117.9 kg
[~2025-04-15 10:05] MED LIST changes: +DULA3PEN SC; +GLIP-318 PO; +HYDR12.510 PO; -HYDR12CA PO
[2025-04-15] MEDS ORDERED: LIDOCAINE 2% 100 MG/5 ML SDV (FOR ANES.) As Ordered ONE (11:18)
[2025-04-15 12:33] VITALS: TEMP 97.9
[2025-04-15 12:50] VITALS: BP 121/76; O2SAT 97
== END 2025-04-15 13:42 | disposition home or self-care (01) ==
LOC: M OPP 10:05
PROVIDERS: ATTEND Surgery
DX: Z12.11 Encounter for screening for malignant neoplasm of colon (principal); K63.5 Polyp of colon; K57.30 Diverticulosis of large intestine without perforation or abscess without bleeding; K64.2 Third degree hemorrhoids; Z80.0 Family history of malignant neoplasm of digestive organs; K22.2 Esophageal obstruction; K29.70 Gastritis, unspecified, without bleeding; R13.10 Dysphagia, unspecified; Z86.73 Personal history of transient ischemic attack (TIA), and cerebral infarction without residual deficits; Z88.1 Allergy status to other antibiotic agents; Z88.8 Allergy status to other drugs, medicaments and biological substances; Z79.82 Long term (current) use of aspirin; Z79.51 Long term (current) use of inhaled steroids; Z79.84 Long term (current) use of oral hypoglycemic drugs; Z79.85 Long-term (current) use of injectable non-insulin antidiabetic drugs; J45.909 Unspecified asthma, uncomplicated; Z87.891 Personal history of nicotine dependence
CPT/HCPCS: 43249; 45385; 88305; J3010

== ENCOUNTER → 2025-04-23 | Outpatient (CLI) | payer OTHER | LOC: M RAD 13:29 | PROVIDERS: ATTEND Surgery | DX: I65.22 Occlusion and stenosis of left carotid artery (principal) ==